=== PATIENT | female | born 1965 | race Caucasian/White ===

== ENCOUNTER 2018-09-30 11:15 | Outpatient (RCR) | payer BC, SELFPAY ==
--- NOTE | 2018-08-04 13:12 | PT.OIE ---
Current Diagnoses Uterovaginal prolapse, unspecified (08/04/18) Pelvic muscle wasting (08/04/18) Past Surgical History Status post delivery Provider Visit Care Team Role Provider Type Jenny Manzo MD Family Provider Physician Primary Care Provider Specialty: HISTORY CARD CLERK Address: [address] [place] [address] [address], [address] Email: [email or web address] Trista Reynaga Attending Provider Non-Staff Specialty: Medical Address: [address] [place] [address] [address], [address] Email: Physical Therapy Initial Evaluation PT-OP-A Visit Information Start: 08/04/18 08:13 Freq: Status: Active Protocol: Document 08/04/18 08:00 AMB (Rec: 08/04/18 08:26 AMB [id number]) Out-Patient Physical Therapy Visit Information Visit Information Visit Type Initial Evaluation Visit Start Time 08:00 Visit Stop Time 08:45 Total Visit Minutes 45 Visit Number 1 PT-OP-B Current Condition Start: 08/04/18 08:13 Freq: Status: Active Protocol: Document 08/04/18 08:00 AMB (Rec: 08/07/18 08:16 AMB [email or web address]) Current Condition History of Current Condition Onset Date 2 months ago Current Complaints prolapse History of Current Condition The patient noticed a bulge in her vagina about 2 months ago . Since then she is feeling it is worse. She notices it constantly. She denies any leaking, although she does notice more urinary urgency. She does have a history of IBS with more loose stools than constipation, denies straining much. She has had 3 pregnancies. The first in 1994 was a vaginal , she had an episiotomy and then tore all the way. She had a in 2013. She does have a history of painful periods. In 2015 she had a 2nd trimester miscarriage and had a dilation and evacuation. She continued to bleed somewhat at least 10 weeks after the D&E and has not returned to menstruation after that. She wonders if she is perimenopausal. She has been avoiding intercourse since she discovered the prolapse due to fear of it. Treatment Goals Patient/Caregiver Goals Reduce feeling of prolapse Prior Functional Status Baseline Function- ADL's Independent Baseline Function- Mobility Independent Current Functional Impairments (Reported) Functional Limitations- ADL's Feeling of falling out Personal Factors Other Personal Factors That May Effect fibromyalgia, hypothyroid, Therapy/Recovery back pain PT-OP-C Subjective Start: 08/04/18 08:13 Freq: Status: Active Protocol: Document 08/04/18 08:00 AMB (Rec: 08/07/18 08:16 AMB [email or web address]) Patient Questionnaires Pelvic Pain and Urgency/Frequency Patient Symptom Scale Pelvic Pain Score 3 PT-OP-I Pelvic Floor Start: 08/04/18 08:13 Freq: Status: Active Protocol: Document 08/04/18 08:00 AMB (Rec: 08/09/18 13:01 AMB [email or web address]) Pelvic Floor Assessment Urine Pelvic Floor Surgery No Urinary Symptoms Urge Sensation Prolapse Falling Out Feeling/Heavy Bowel Other Bowel Symptoms IBS [place] Stool Chart Type 1-7 4 Pelvic Clock Pelvic Clock 12-3 Atrophy Pelvic Clock 9-12 Atrophy Prolapse Uterine Prolapse Grade 2 Perineal Descent Resting Present Bearing Present Contraction Ability Voluntary Contraction Weak Voluntary Relaxation Moderate Manual Muscle Testing Left 2 Manual Muscle Testing Right 2 Manual Muscle Testing Anterior 0 Manual Muscle Testing Posterior 2 Muscle Endurance (Seconds) 3 Number of Quick Contractions In 10 4 Seconds Comments Pelvic Floor Comments Fair strength a posterior pelvic floor, but poor strength anteriorly, visible prolapse worsens with bearing down. Pt denies pain with palpation. PT-OP-T Assessment and Plan Start: 08/04/18 08:13 Freq: Status: Active Protocol: Document 08/04/18 08:00 AMB (Rec: 08/09/18 13:01 AMB [email or web address]) Physical Therapy Assessment Rehab Potential Rehabilitation Potential Good Evaluation Complexity Number of Personal Factors/Comorbidities 1-2 Number of Body Systems Impaired 3 Clinical Presentation at Evaluation Evolving Impairments Impairments Activity Tolerance Functional Activities Strength Goals Two Impairment Urgency Short Term Goal (STG) The patient will be able to void urine normally without urgency. STG Duration 4 weeks One Impairment Prolapse Short Term Goal (STG) The patient will be independent with a HEP to improve her pelvic floor strength. STG Duration 4 weeks Food And Beverage Checker Goal (LTG) The patient will move from sit to stand without a feeling of pelvic heaviness. LTG Duration 8 weeks Assessment Summary Assessment The patient attends PT with a recent onset of prolapse. She denies incontinenence, but has noticed more urgency. She will benefit from pelvic floor PT, as her anterior pelvic floor muscles are quite weak. Physical Therapy Plan Frequency and Duration Frequency of Treatment 1x/Week Duration of Treatment 8 weeks Plan of Care Start Date 08/04/18 Plan of Care End Date 09/29/18 Therapeutic Interventions Therapeutic Interventions Manual Therapy Neuromuscular Re-education Self-Care/Home Management Therapeutic Activities Therapeutic Exercises Modalities Biofeedback Electric Stimulation Next Visit Focus/Plan Next Note Type Treatment Note Next Visit Plan Evaluate sEMG
--- NOTE | 2018-08-04 13:13 | PT.OPPOC ---
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 Address: [address] [place] [address] [address], [address] Email: [email or web address] Trista Reynaga Attending Provider Non-Staff Specialty: Medical Address: [address] [place] [address] [address], [address] Email: Plan Of Care PT-OP-T Assessment and Plan Start: 08/04/18 08:13 Freq: Status: Active Protocol: Document 08/04/18 08:00 AMB (Rec: 08/09/18 13:01 AMB [email or web address]) Physical Therapy Assessment Rehab Potential Rehabilitation Potential Good Evaluation Complexity Number of Personal Factors/Comorbidities 1-2 Number of Body Systems Impaired 3 Clinical Presentation at Evaluation Evolving Impairments Impairments Activity Tolerance Functional Activities Strength Goals Two Impairment Urgency Short Term Goal (STG) The patient will be able to void urine normally without urgency. STG Duration 4 weeks One Impairment Prolapse Short Term Goal (STG) The patient will be independent with a HEP to improve her pelvic floor strength. STG Duration 4 weeks Shear Tender Goal (LTG) The patient will move from sit to stand without a feeling of pelvic heaviness. LTG Duration 8 weeks Assessment Summary Assessment The patient attends PT with a recent onset of prolapse. She denies incontinenence, but has noticed more urgency. She will benefit from pelvic floor PT, as her anterior pelvic floor muscles are quite weak. Physical Therapy Plan Frequency and Duration Frequency of Treatment 1x/Week Duration of Treatment 8 weeks Plan of Care Start Date 08/04/18 Plan of Care End Date 09/29/18 Therapeutic Interventions Therapeutic Interventions Manual Therapy Neuromuscular Re-education Self-Care/Home Management Therapeutic Activities Therapeutic Exercises Modalities Biofeedback Electric Stimulation Next Visit Focus/Plan Next Note Type Treatment Note Next Visit Plan Evaluate sEMG Plan of Care Dates Plan of Care Start Date 08/04/18 Plan of Care End Date 09/29/18 Please Sign and Return: I have reviewed this Plan of Care and certify that the skilled therapy services above are required to meet the patient?s needs. Physician Signature Date Printed Name and Credentials Clinical Instructor Signature Printed Name and Credentials
--- NOTE | 2018-08-12 09:00 | PT.OTN ---
Current Diagnoses Uterovaginal prolapse, unspecified (08/12/18) Pelvic muscle wasting (08/12/18) Physical Therapy Treatment Note PT-OP-A Visit Information Start: 08/04/18 08:13 Freq: Status: Active Protocol: Document 08/12/18 07:45 AMB (Rec: 08/12/18 07:49 AMB [email or web address]) Out-Patient Physical Therapy Visit Information Visit Information Visit Type Treatment Note Visit Start Time 07:45 Visit Stop Time 08:15 Total Visit Minutes 30 Visit Number 2 Evaluation Information Evaluation Date 08/04/18 PT-OP-B Current Condition Start: 08/04/18 08:13 Freq: Status: Active Protocol: Document 08/04/18 08:00 AMB (Rec: 08/07/18 08:16 AMB [email or web address]) Current Condition History of Current Condition Onset Date 2 months ago Current Complaints prolapse History of Current Condition The patient noticed a bulge in her vagina about 2 months ago . Since then she is feeling it is worse. She notices it constantly. She denies any leaking, although she does notice more urinary urgency. She does have a history of IBS with more loose stools than constipation, denies straining much. She has had 3 pregnancies. The first in 1994 was a vaginal , she had an episiotomy and then tore all the way. She had a in 2013. She does have a history of painful periods. In 2015 she had a 2nd trimester miscarriage and had a dilation and evacuation. She continued to bleed somewhat at least 10 weeks after the D&E and has not returned to menstruation after that. She wonders if she is perimenopausal. She has been avoiding intercourse since she discovered the prolapse due to fear of it. Treatment Goals Patient/Caregiver Goals Reduce feeling of prolapse Prior Functional Status Baseline Function- ADL's Independent Baseline Function- Mobility Independent Current Functional Impairments (Reported) Functional Limitations- ADL's Feeling of falling out Personal Factors Other Personal Factors That May Effect fibromyalgia, hypothyroid, Therapy/Recovery back pain PT-OP-C Subjective Start: 08/04/18 08:13 Freq: Status: Active Protocol: Document 08/12/18 07:45 AMB (Rec: 08/12/18 07:49 AMB [email or web address]) OP-PT Subjective Patient Comments Patient Comments Pt states she has been doing her exercises, not sure how they're going. PT-OP-I Pelvic Floor Start: 08/04/18 08:13 Freq: Status: Active Protocol: Document 08/04/18 08:00 AMB (Rec: 08/09/18 13:01 AMB [email or web address]) Pelvic Floor Assessment Urine Pelvic Floor Surgery No Urinary Symptoms Urge Sensation Prolapse Falling Out Feeling/Heavy Bowel Other Bowel Symptoms IBS [place] Stool Chart Type 1-7 4 Pelvic Clock Pelvic Clock 12-3 Atrophy Pelvic Clock 9-12 Atrophy Prolapse Uterine Prolapse Grade 2 Perineal Descent Resting Present Bearing Present Contraction Ability Voluntary Contraction Weak Voluntary Relaxation Moderate Manual Muscle Testing Left 2 Manual Muscle Testing Right 2 Manual Muscle Testing Anterior 0 Manual Muscle Testing Posterior 2 Muscle Endurance (Seconds) 3 Number of Quick Contractions In 10 4 Seconds Comments Pelvic Floor Comments Fair strength a posterior pelvic floor, but poor strength anteriorly, visible prolapse worsens with bearing down. Pt denies pain with palpation. PT-OP-Q Treatments Start: 08/04/18 08:14 Freq: Status: Active Protocol: Document 08/12/18 07:45 AMB (Rec: 08/13/18 07:00 AMB [email or web address]) Neuro Re-Education Treatment Other Activities 2 Details long holds Comments difficult for more than 3 seconds 1 Details quick flicks Comments good coordination with sEMG, pt felt she needed to hold the sensor in to get it to not fall out. PT-OP-T Assessment and Plan Start: 08/04/18 08:13 Freq: Status: Active Protocol: Document 08/12/18 07:45 AMB (Rec: 08/13/18 07:00 AMB [email or web address]) Physical Therapy Assessment Assessment Summary Assessment Pt with poor endurance, but making good progress on isolation Physical Therapy Plan Next Visit Focus/Plan Next Note Type Treatment Note Next Visit Plan Progress into resistance and sitting/standing as tolerated.
--- NOTE | 2018-08-18 16:36 | PT.OTN ---
Current Diagnoses Uterovaginal prolapse, unspecified (08/18/18) Pelvic muscle wasting (08/18/18) Physical Therapy Treatment Note PT-OP-A Visit Information Start: 08/04/18 08:13 Freq: Status: Active Protocol: Document 08/18/18 09:30 AMB (Rec: 08/18/18 09:55 AMB [id number]) Out-Patient Physical Therapy Visit Information Visit Information Visit Type Treatment Note Visit Start Time 07:45 Visit Stop Time 08:15 Total Visit Minutes 45 Visit Number 3 PT-OP-B Current Condition Start: 08/04/18 08:13 Freq: Status: Active Protocol: Document 08/04/18 08:00 AMB (Rec: 08/07/18 08:16 AMB [email or web address]) Current Condition History of Current Condition Onset Date 2 months ago Current Complaints prolapse History of Current Condition The patient noticed a bulge in her vagina about 2 months ago . Since then she is feeling it is worse. She notices it constantly. She denies any leaking, although she does notice more urinary urgency. She does have a history of IBS with more loose stools than constipation, denies straining much. She has had 3 pregnancies. The first in 1994 was a vaginal , she had an episiotomy and then tore all the way. She had a in 2013. She does have a history of painful periods. In 2015 she had a 2nd trimester miscarriage and had a dilation and evacuation. She continued to bleed somewhat at least 10 weeks after the D&E and has not returned to menstruation after that. She wonders if she is perimenopausal. She has been avoiding intercourse since she discovered the prolapse due to fear of it. Treatment Goals Patient/Caregiver Goals Reduce feeling of prolapse Prior Functional Status Baseline Function- ADL's Independent Baseline Function- Mobility Independent Current Functional Impairments (Reported) Functional Limitations- ADL's Feeling of falling out Personal Factors Other Personal Factors That May Effect fibromyalgia, hypothyroid, Therapy/Recovery back pain PT-OP-C Subjective Start: 08/04/18 08:13 Freq: Status: Active Protocol: Document 08/18/18 09:30 AMB (Rec: 08/18/18 09:55 AMB [id number]) OP-PT Subjective Patient Comments Patient Comments Pt states she has been very stressed. PT-OP-I Pelvic Floor Start: 08/04/18 08:13 Freq: Status: Active Protocol: Document 08/04/18 08:00 AMB (Rec: 08/09/18 13:01 AMB [email or web address]) Pelvic Floor Assessment Urine Pelvic Floor Surgery No Urinary Symptoms Urge Sensation Prolapse Falling Out Feeling/Heavy Bowel Other Bowel Symptoms IBS [place] Stool Chart Type 1-7 4 Pelvic Clock Pelvic Clock 12-3 Atrophy Pelvic Clock 9-12 Atrophy Prolapse Uterine Prolapse Grade 2 Perineal Descent Resting Present Bearing Present Contraction Ability Voluntary Contraction Weak Voluntary Relaxation Moderate Manual Muscle Testing Left 2 Manual Muscle Testing Right 2 Manual Muscle Testing Anterior 0 Manual Muscle Testing Posterior 2 Muscle Endurance (Seconds) 3 Number of Quick Contractions In 10 4 Seconds Comments Pelvic Floor Comments Fair strength a posterior pelvic floor, but poor strength anteriorly, visible prolapse worsens with bearing down. Pt denies pain with palpation. PT-OP-Q Treatments Start: 08/04/18 08:14 Freq: Status: Active Protocol: Document 08/18/18 09:30 AMB (Rec: 08/18/18 16:36 AMB [email or web address]) Therapeutic Exercises Supine Exercises 3 Supine Exercise Name hips and knees at 9090 supported on bolster Comments with pelvic floor contraction 2 Supine Exercise Name hip add isometric 1 Supine Exercise Name hip abd t band Resistance #3 Comments with pelvic floor stab Other Exercises 1 Other Exercise Name masood pose Comments with modification to avoid head below hear for sinus pressure PT-OP-T Assessment and Plan Start: 08/04/18 08:13 Freq: Status: Active Protocol: Document 08/18/18 09:30 AMB (Rec: 08/18/18 10:08 AMB [id number]) Physical Therapy Assessment Assessment Summary Assessment Pt with difficulty engaging pelvic floor in seated. Physical Therapy Plan Next Visit Focus/Plan Next Note Type Treatment Note Next Visit Plan Progress into resistance and sitting/standing as tolerated.
--- NOTE | 2018-08-25 08:41 | PT.OTN ---
Current Diagnoses Uterovaginal prolapse, unspecified (08/25/18) Pelvic muscle wasting (08/25/18) Physical Therapy Treatment Note PT-OP-A Visit Information Start: 08/04/18 08:13 Freq: Status: Active Protocol: Document 08/25/18 08:05 AMB (Rec: 08/25/18 08:32 AMB [id number]) Out-Patient Physical Therapy Visit Information Visit Information Visit Type Treatment Note Visit Start Time 08:05 Visit Stop Time 08:45 Total Visit Minutes 45 Visit Number 4 PT-OP-B Current Condition Start: 08/04/18 08:13 Freq: Status: Active Protocol: Document 08/04/18 08:00 AMB (Rec: 08/07/18 08:16 AMB [email or web address]) Current Condition History of Current Condition Onset Date 2 months ago Current Complaints prolapse History of Current Condition The patient noticed a bulge in her vagina about 2 months ago . Since then she is feeling it is worse. She notices it constantly. She denies any leaking, although she does notice more urinary urgency. She does have a history of IBS with more loose stools than constipation, denies straining much. She has had 3 pregnancies. The first in 1994 was a vaginal , she had an episiotomy and then tore all the way. She had a in 2013. She does have a history of painful periods. In 2015 she had a 2nd trimester miscarriage and had a dilation and evacuation. She continued to bleed somewhat at least 10 weeks after the D&E and has not returned to menstruation after that. She wonders if she is perimenopausal. She has been avoiding intercourse since she discovered the prolapse due to fear of it. Treatment Goals Patient/Caregiver Goals Reduce feeling of prolapse Prior Functional Status Baseline Function- ADL's Independent Baseline Function- Mobility Independent Current Functional Impairments (Reported) Functional Limitations- ADL's Feeling of falling out Personal Factors Other Personal Factors That May Effect fibromyalgia, hypothyroid, Therapy/Recovery back pain PT-OP-C Subjective Start: 08/04/18 08:13 Freq: Status: Active Protocol: Document 08/25/18 08:05 AMB (Rec: 08/25/18 08:32 AMB [id number]) OP-PT Subjective Patient Comments Patient Comments Pt's dad is on hospice and she has been very stressed with that. PT-OP-I Pelvic Floor Start: 08/04/18 08:13 Freq: Status: Active Protocol: Document 08/04/18 08:00 AMB (Rec: 08/09/18 13:01 AMB [email or web address]) Pelvic Floor Assessment Urine Pelvic Floor Surgery No Urinary Symptoms Urge Sensation Prolapse Falling Out Feeling/Heavy Bowel Other Bowel Symptoms IBS [place] Stool Chart Type 1-7 4 Pelvic Clock Pelvic Clock 12-3 Atrophy Pelvic Clock 9-12 Atrophy Prolapse Uterine Prolapse Grade 2 Perineal Descent Resting Present Bearing Present Contraction Ability Voluntary Contraction Weak Voluntary Relaxation Moderate Manual Muscle Testing Left 2 Manual Muscle Testing Right 2 Manual Muscle Testing Anterior 0 Manual Muscle Testing Posterior 2 Muscle Endurance (Seconds) 3 Number of Quick Contractions In 10 4 Seconds Comments Pelvic Floor Comments Fair strength a posterior pelvic floor, but poor strength anteriorly, visible prolapse worsens with bearing down. Pt denies pain with palpation. PT-OP-Q Treatments Start: 08/04/18 08:14 Freq: Status: Active Protocol: Document 08/25/18 08:05 AMB (Rec: 08/25/18 08:32 AMB [id number]) Therapeutic Exercises Supine Exercises 3 Supine Exercise Name hips and knees at 9090 supported on bolster Comments with pelvic floor contraction 2 Supine Exercise Name hip add isometric 1 Supine Exercise Name hip abd t band Resistance #3 Comments with pelvic floor stab Neuro Re-Education Treatment Coordination Activities 1 Details coordinating breath work with pelvic floor Comments in supine difficult. Other Activities 2 Details long holds Comments difficult for more than 3 seconds PT-OP-T Assessment and Plan Start: 08/04/18 08:13 Freq: Status: Active Protocol: Document 08/25/18 08:00 AMB (Rec: 08/25/18 08:38 AMB [id number]) Physical Therapy Assessment Assessment Summary Assessment Pt with difficulty focusing on exercises with stressor from her dad right now. Physical Therapy Plan Next Visit Focus/Plan Next Note Type Treatment Note Next Visit Plan Progress into resistance and sitting/standing as tolerated.
--- NOTE | 2018-09-01 12:54 | PT.OTN ---
Current Diagnoses Uterovaginal prolapse, unspecified (09/01/18) Pelvic muscle wasting (09/01/18) Physical Therapy Treatment Note PT-OP-A Visit Information Start: 08/04/18 08:13 Freq: Status: Active Protocol: Document 09/01/18 08:30 AMB (Rec: 09/01/18 09:47 AMB [id number]) Out-Patient Physical Therapy Visit Information Visit Information Visit Type Treatment Note Visit Start Time 08:15 Visit Stop Time 08:45 Total Visit Minutes 30 Visit Number 5 PT-OP-B Current Condition Start: 08/04/18 08:13 Freq: Status: Active Protocol: Document 08/04/18 08:00 AMB (Rec: 08/07/18 08:16 AMB [email or web address]) Current Condition History of Current Condition Onset Date 2 months ago Current Complaints prolapse History of Current Condition The patient noticed a bulge in her vagina about 2 months ago . Since then she is feeling it is worse. She notices it constantly. She denies any leaking, although she does notice more urinary urgency. She does have a history of IBS with more loose stools than constipation, denies straining much. She has had 3 pregnancies. The first in 1994 was a vaginal , she had an episiotomy and then tore all the way. She had a in 2013. She does have a history of painful periods. In 2015 she had a 2nd trimester miscarriage and had a dilation and evacuation. She continued to bleed somewhat at least 10 weeks after the D&E and has not returned to menstruation after that. She wonders if she is perimenopausal. She has been avoiding intercourse since she discovered the prolapse due to fear of it. Treatment Goals Patient/Caregiver Goals Reduce feeling of prolapse Prior Functional Status Baseline Function- ADL's Independent Baseline Function- Mobility Independent Current Functional Impairments (Reported) Functional Limitations- ADL's Feeling of falling out Personal Factors Other Personal Factors That May Effect fibromyalgia, hypothyroid, Therapy/Recovery back pain PT-OP-C Subjective Start: 08/04/18 08:13 Freq: Status: Active Protocol: Document 09/01/18 08:30 AMB (Rec: 09/01/18 09:47 AMB [id number]) OP-PT Subjective Patient Comments Patient Comments Pt has a few questions about HEP PT-OP-I Pelvic Floor Start: 08/04/18 08:13 Freq: Status: Active Protocol: Document 08/04/18 08:00 AMB (Rec: 08/09/18 13:01 AMB [email or web address]) Pelvic Floor Assessment Urine Pelvic Floor Surgery No Urinary Symptoms Urge Sensation Prolapse Falling Out Feeling/Heavy Bowel Other Bowel Symptoms IBS [place] Stool Chart Type 1-7 4 Pelvic Clock Pelvic Clock 12-3 Atrophy Pelvic Clock 9-12 Atrophy Prolapse Uterine Prolapse Grade 2 Perineal Descent Resting Present Bearing Present Contraction Ability Voluntary Contraction Weak Voluntary Relaxation Moderate Manual Muscle Testing Left 2 Manual Muscle Testing Right 2 Manual Muscle Testing Anterior 0 Manual Muscle Testing Posterior 2 Muscle Endurance (Seconds) 3 Number of Quick Contractions In 10 4 Seconds Comments Pelvic Floor Comments Fair strength a posterior pelvic floor, but poor strength anteriorly, visible prolapse worsens with bearing down. Pt denies pain with palpation. PT-OP-Q Treatments Start: 08/04/18 08:14 Freq: Status: Active Protocol: Document 09/01/18 08:30 AMB (Rec: 09/01/18 12:53 AMB [email or web address]) Neuro Re-Education Treatment Coordination Activities 1 Details coordinating breath work with pelvic floor Comments in supine difficult. Other Activities 3 Details hip knee 9090 Comments Reviewed role of gravity, progression with exercises. 2 Details long holds Comments difficult for more than 3 seconds 1 Details quick flicks Comments good coordination with sEMG, pt felt she needed to hold the sensor in to get it to not fall out. PT-OP-T Assessment and Plan Start: 08/04/18 08:13 Freq: Status: Active Protocol: Document 09/01/18 08:30 AMB (Rec: 09/01/18 09:52 AMB [id number]) Physical Therapy Assessment Assessment Summary Assessment Pt continues to have difficulty finding time to do HEP. Physical Therapy Plan Next Visit Focus/Plan Next Note Type Treatment Note Next Visit Plan Progress into more functional strengthening as tolerated
--- NOTE | 2018-09-30 13:27 | PT.OTN ---
Current Diagnoses Uterovaginal prolapse, unspecified (09/30/18) Pelvic muscle wasting (09/30/18) Physical Therapy Treatment Note PT-OP-A Visit Information Start: 08/04/18 08:13 Freq: Status: Active Protocol: Document 09/30/18 11:15 AMB (Rec: 09/30/18 13:26 AMB [id number]) Out-Patient Physical Therapy Visit Information Visit Information Visit Type Treatment Note Visit Start Time 11:15 Visit Stop Time 12:00 Total Visit Minutes 45 Visit Number 6 PT-OP-B Current Condition Start: 08/04/18 08:13 Freq: Status: Active Protocol: Document 08/04/18 08:00 AMB (Rec: 08/07/18 08:16 AMB [id number]) Current Condition History of Current Condition Onset Date 2 months ago Current Complaints prolapse History of Current Condition The patient noticed a bulge in her vagina about 2 months ago . Since then she is feeling it is worse. She notices it constantly. She denies any leaking, although she does notice more urinary urgency. She does have a history of IBS with more loose stools than constipation, denies straining much. She has had 3 pregnancies. The first in 1994 was a vaginal , she had an episiotomy and then tore all the way. She had a in 2013. She does have a history of painful periods. In 2015 she had a 2nd trimester miscarriage and had a dilation and evacuation. She continued to bleed somewhat at least 10 weeks after the D&E and has not returned to menstruation after that. She wonders if she is perimenopausal. She has been avoiding intercourse since she discovered the prolapse due to fear of it. Treatment Goals Patient/Caregiver Goals Reduce feeling of prolapse Prior Functional Status Baseline Function- ADL's Independent Baseline Function- Mobility Independent Current Functional Impairments (Reported) Functional Limitations- ADL's Feeling of falling out Personal Factors Other Personal Factors That May Effect fibromyalgia, hypothyroid, Therapy/Recovery back pain PT-OP-C Subjective Start: 08/04/18 08:13 Freq: Status: Active Protocol: Document 09/30/18 11:15 AMB (Rec: 09/30/18 13:26 AMB [id number]) OP-PT Subjective Patient Comments Patient Comments Pt reports her life stressors have been making it very difficult to do her exercises. PT-OP-I Pelvic Floor Start: 08/04/18 08:13 Freq: Status: Active Protocol: Document 08/04/18 08:00 AMB (Rec: 08/09/18 13:01 AMB [id number]) Pelvic Floor Assessment Urine Pelvic Floor Surgery No Urinary Symptoms Urge Sensation Prolapse Falling Out Feeling/Heavy Bowel Other Bowel Symptoms IBS [place] Stool Chart Type 1-7 4 Pelvic Clock Pelvic Clock 12-3 Atrophy Pelvic Clock 9-12 Atrophy Prolapse Uterine Prolapse Grade 2 Perineal Descent Resting Present Bearing Present Contraction Ability Voluntary Contraction Weak Voluntary Relaxation Moderate Manual Muscle Testing Left 2 Manual Muscle Testing Right 2 Manual Muscle Testing Anterior 0 Manual Muscle Testing Posterior 2 Muscle Endurance (Seconds) 3 Number of Quick Contractions In 10 4 Seconds Comments Pelvic Floor Comments Fair strength a posterior pelvic floor, but poor strength anteriorly, visible prolapse worsens with bearing down. Pt denies pain with palpation. PT-OP-Q Treatments Start: 08/04/18 08:14 Freq: Status: Active Protocol: Document 09/30/18 11:15 AMB (Rec: 09/30/18 13:26 AMB [id number]) Therapeutic Exercises Supine Exercises 3 Supine Exercise Name hips and knees at 9090 supported on bolster Comments with pelvic floor contraction 2 Supine Exercise Name hip add isometric 1 Supine Exercise Name hip abd t band Resistance #3 Comments with pelvic floor stab Standing Exercises 2 Standing Exercise Name mini squat Comments with PF contract 1 Standing Exercise Name mini lunges Comments with PF contract Other Exercises 2 Other Exercise Name kneeling to high kneeling Comments with breathing PT-OP-T Assessment and Plan Start: 08/04/18 08:13 Freq: Status: Active Protocol: Document 09/30/18 11:15 AMB (Rec: 09/30/18 13:26 AMB [id number]) Physical Therapy Assessment Assessment Summary Assessment Instructed in HEP to progress as she gets better. From supine into standing and moving. Physical Therapy Plan Next Visit Focus/Plan Next Note Type Treatment Note Next Visit Plan Depending on how pt is doing, may need to d/c soon. Follow up on HEP.
--- NOTE | 2018-11-25 08:13 | PT.OPDS ---
Current Diagnoses Uterovaginal prolapse, unspecified (09/30/18) Pelvic muscle wasting (09/30/18) Provider Visit Care Team Role Provider Type Jenny Manzo MD Family Provider Physician Primary Care Provider Specialty: GRAFFITI CLEANER Address: [address] [place] [address] [address], [address] Email: [email or web address] Trista Reynaga Attending Provider Non-Staff Specialty: Medical Address: [address] [place] [address] [address], [address] Email: Visit Number Visit Number 6 Discharge Summary PT-OP-B Current Condition Start: 08/04/18 08:13 Freq: Status: Active Protocol: Document 08/04/18 08:00 AMB (Rec: 08/07/18 08:16 AMB [email or web address]) Current Condition History of Current Condition Onset Date 2 months ago Current Complaints prolapse History of Current Condition The patient noticed a bulge in her vagina about 2 months ago . Since then she is feeling it is worse. She notices it constantly. She denies any leaking, although she does notice more urinary urgency. She does have a history of IBS with more loose stools than constipation, denies straining much. She has had 3 pregnancies. The first in 1994 was a vaginal , she had an episiotomy and then tore all the way. She had a in 2013. She does have a history of painful periods. In 2015 she had a 2nd trimester miscarriage and had a dilation and evacuation. She continued to bleed somewhat at least 10 weeks after the D&E and has not returned to menstruation after that. She wonders if she is perimenopausal. She has been avoiding intercourse since she discovered the prolapse due to fear of it. Treatment Goals Patient/Caregiver Goals Reduce feeling of prolapse Prior Functional Status Baseline Function- ADL's Independent Baseline Function- Mobility Independent Current Functional Impairments (Reported) Functional Limitations- ADL's Feeling of falling out Personal Factors Other Personal Factors That May Effect fibromyalgia, hypothyroid, Therapy/Recovery back pain PT-OP-C Subjective Start: 08/04/18 08:13 Freq: Status: Active Protocol: Document 09/30/18 11:15 AMB (Rec: 09/30/18 13:26 AMB [id number]) OP-PT Subjective Patient Comments Patient Comments Pt reports her life stressors have been making it very difficult to do her exercises. PT-OP-I Pelvic Floor Start: 08/04/18 08:13 Freq: Status: Active Protocol: Document 08/04/18 08:00 AMB (Rec: 08/09/18 13:01 AMB [email or web address]) Pelvic Floor Assessment Urine Pelvic Floor Surgery No Urinary Symptoms Urge Sensation Prolapse Falling Out Feeling/Heavy Bowel Other Bowel Symptoms IBS [place] Stool Chart Type 1-7 4 Pelvic Clock Pelvic Clock 12-3 Atrophy Pelvic Clock 9-12 Atrophy Prolapse Uterine Prolapse Grade 2 Perineal Descent Resting Present Bearing Present Contraction Ability Voluntary Contraction Weak Voluntary Relaxation Moderate Manual Muscle Testing Left 2 Manual Muscle Testing Right 2 Manual Muscle Testing Anterior 0 Manual Muscle Testing Posterior 2 Muscle Endurance (Seconds) 3 Number of Quick Contractions In 10 4 Seconds Comments Pelvic Floor Comments Fair strength a posterior pelvic floor, but poor strength anteriorly, visible prolapse worsens with bearing down. Pt denies pain with palpation. PT-OP-T Assessment and Plan Start: 08/04/18 08:13 Freq: Status: Active Protocol: Document 11/25/18 08:08 AMB (Rec: 11/25/18 08:13 AMB [id number]) Physical Therapy Assessment Goals Two Impairment Urgency Short Term Goal (STG) The patient will be able to void urine normally without urgency. STG Duration 4 weeks One Impairment Prolapse Short Term Goal (STG) The patient will be independent with a HEP to improve her pelvic floor strength. STG Duration 4 weeks Diving Supervisor Goal (LTG) The patient will move from sit to stand without a feeling of pelvic heaviness. LTG Duration 8 weeks Assessment Summary Assessment Radha was seen for 6 visits. Last seen September 30. She has not returned the last call to schedule more. When last seen her father was actively dying and this was a big stressor for her, so she was having difficulty focusing on treatment. She was given a HEP that hopefully she will be able to continue with. Since she has not called back and not been seen in almost 2 months, she is therefore discharged from PT at this time and would need a new referral to return when her family responsibilities have calmed down.
== END 2018-10-01 11:53 ==
LOC: PHYS 11:15
PROVIDERS: Family Provider Obstetrics & Gynecology; PCP Obstetrics & Gynecology; Visit Provider Urology
DX: N81.4 Uterovaginal prolapse, unspecified (principal); N81.84 Pelvic muscle wasting
CPT/HCPCS: 97110; 97112; 97162

== ENCOUNTER → 2020-09-19 15:01 | Outpatient (ROUT) | payer BC, SELFPAY ==
[2020-09-19 16:16] LABS: Free T4, Direct Thyroxine 0.71 ng/dL (0.78-2.19)
[2020-09-19 16:30] LABS: Thyroid Stimulating Hormone 3.76 uIU/mL (0.47-4.68)
== END ==
PROVIDERS: Family Provider Obstetrics & Gynecology; PCP Nurse Practitioner; Visit Provider Internal Medicine
DX: E03.9 Hypothyroidism, unspecified (principal)
CPT/HCPCS: 84439; 84443; 84481

== ENCOUNTER → 2020-12-07 13:13 | Outpatient (ROUT) | payer BC, SELFPAY ==
[2020-12-07 13:50] LABS: Free T3, Triiodothyronine Free 3.76 pg/mL (2.77-5.27); Free T4, Direct Thyroxine 0.68 ng/dL (0.78-2.19)
[2020-12-07 14:03] LABS: Thyroid Stimulating Hormone 2.33 uIU/mL (0.47-4.68)
== END ==
PROVIDERS: Family Provider Obstetrics & Gynecology; PCP Nurse Practitioner; Visit Provider Internal Medicine
DX: E03.9 Hypothyroidism, unspecified (principal)
CPT/HCPCS: 84439; 84443; 84481

== ENCOUNTER → 2021-05-05 13:53 | Outpatient (CLI) | payer BC, SELFPAY ==
[2021-05-05 14:21] LABS: COVID19 -Nasal RAPID Negative (Negative)
== END ==
PROVIDERS: Family Provider Obstetrics & Gynecology; PCP Nurse Practitioner; Visit Provider Physician Assistant
DX: R05 Cough (principal); Z20.822 Contact with and (suspected) exposure to COVID-19
CPT/HCPCS: 87635

== ENCOUNTER → 2021-11-12 16:29 | Outpatient (ROUT) | payer BC, SELFPAY | PROVIDERS: Family Provider Obstetrics & Gynecology; PCP Nurse Practitioner; Visit Provider Dermatology | DX: L02.821 Furuncle of head [any part, except face] (principal) | CPT/HCPCS: 87070; 87077; 87147; 87186; 87205 ==

== ENCOUNTER → 2022-09-02 17:09 | Outpatient (CLI) | payer BC, SELFPAY ==
[2022-09-02 18:36] LABS: COVID-19 CEPHEID 4-PLEX PCR Negative (Negative); Influenza A - CEPHEID Flu A NEGATIVE (NEGATIVE); Influenza B - CEPHEID Flu B NEGATIVE (NEGATIVE); Respiratory Syncytial Virus Negative (Negative)
== END ==
PROVIDERS: Family Provider Obstetrics & Gynecology; PCP Family Medicine; Visit Provider Nurse Practitioner Family
DX: R05.9 Cough, unspecified (principal)
CPT/HCPCS: 0241U

== ENCOUNTER → 2022-10-10 10:19 | Outpatient (CLI) | payer BC, SELFPAY ==
[2022-10-10 11:30] LABS: Add Manual Diff / Slide Review NO; Basophils Absolute Auto 0 /uL (0-100); Basophils Percent Auto 0.6 % (0-2); Eosinophils Absolute Auto 100 /uL (0-450); Eosinophils Percent Auto 2.3 % (2-4); Hematocrit 37.9 % (36-46); Hemoglobin 12.4 g/dL (12.0-16.0); Lymphocytes Absolute Auto 1900 /uL (1100-4500); Lymphocytes Percent Auto 36.9 % (25-40); Mean Corpuscular HGB Conc 32.7 % (30-36); Mean Corpuscular Hemoglobin 28.5 PG (26-34); Mean Corpuscular Volume 87.2 fL (80-100); Monocytes Absolute Auto 500 /uL (0-900); Monocytes Percent Auto 9.5 % (3-14); Neutrophils Absolute Auto 2600 /uL (1500-7000); Neutrophils Percent Auto 50.7 % (50-75); Platelet Count 302 X10^3/uL (150-400); Red Blood Cell Count 4.34 X10^6/uL (4.0-5.2); Red Cell Distribution Width 14.1 % (11.6-14.8); White Blood Cell Count 5.2 X10^3/uL (4.5-11.0)
[2022-10-10 11:58] LABS: Erythrocyte Sedimentation Rate 14 MM/HR (0-20)
[2022-10-10 11:59] LABS: C-Reactive Protein Quant < 0.5 mg/dL (<1.0)
[2022-10-11 05:33] LABS: IGA 110 mg/dL (87-352); IGG 871 mg/dL (586-1602); IGM 81 mg/dL (26-217)
[2022-10-15 16:29] LABS: ANA Screen, IFA Negative (.)
== END ==
PROVIDERS: Family Provider Obstetrics & Gynecology; PCP Family Medicine; Referring Provider Family Medicine; Visit Provider Family Medicine
DX: J32.9 Chronic sinusitis, unspecified (principal); M79.7 Fibromyalgia; R68.89 Other general symptoms and signs; R73.03 Prediabetes; B95.8 Unspecified staphylococcus as the cause of diseases classified elsewhere; L08.9 Local infection of the skin and subcutaneous tissue, unspecified
CPT/HCPCS: 36415; 82784; 85025; 85651; 86038; 86140

== ENCOUNTER → 2022-11-19 16:12 | Outpatient (CLI) | payer BC, SELFPAY ==
[2022-11-19 17:10] LABS: Influenza A - CEPHEID Flu A NEGATIVE (NEGATIVE); Influenza B - CEPHEID Flu B NEGATIVE (NEGATIVE); Respiratory Syncytial Virus Negative (Negative)
[2022-11-19 17:13] LABS: COVID-19 CEPHEID 4-PLEX PCR POSITIVE (Negative)
== END ==
PROVIDERS: Family Provider Obstetrics & Gynecology; PCP Family Medicine; Visit Provider Nurse Practitioner Family
DX: R05.9 Cough, unspecified (principal)
CPT/HCPCS: 0241U

== ENCOUNTER → 2022-12-17 12:13 | Outpatient (CLI) | payer BC, SELFPAY ==
[2022-12-17 13:58] LABS: Hemoglobin A1C% w Est Avg Glu 5.8 % (4.0-6.0)
[2022-12-17 14:00] LABS: Cholesterol 265 mg/dL (140-199); HDL Cholesterol 64 mg/dL (40-60); LDL Cholesterol Calculated 166 mg/dL (<100); Triglycerides 177 mg/dL (35-150)
[2022-12-17 14:31] LABS: TSH w/ Reflex to FT4 0.54 uIU/mL (0.47-4.68)
== END ==
PROVIDERS: Family Provider Obstetrics & Gynecology; PCP Family Medicine; Referring Provider Family Medicine; Visit Provider Family Medicine
DX: E03.9 Hypothyroidism, unspecified (principal); E78.5 Hyperlipidemia, unspecified; M79.7 Fibromyalgia; R73.03 Prediabetes
CPT/HCPCS: 36415; 80061; 83036; 84443

== ENCOUNTER → 2023-05-01 15:32 | Outpatient (CLI) | payer BC, SELFPAY ==
--- NOTE | 2023-05-01 15:33 | DI.CT.S_ITS ---
PROCEDURE: CT SINUS SCREEN WO CON INDICATIONS: Chronic pansinusitis TECHNIQUE: Noncontrast 3.0 mm axial images acquired from the frontal sinuses to the mid-sella, with coronal and sagittal reformats. For radiation dose reduction, the following was used: automated exposure control, adjustment of mA and/or kV according to patient size. COMPARISON: None. FINDINGS: Image quality: Excellent. Maxillary Sinuses: Mild mucosal thickening can be seen within the inferior right maxillary sinus. The left maxillary sinus appears clear. Postoperative changes are seen, with removal of portions of the medial alfaro of the maxillary sinuses. Mild bony septations can be seen involving both maxillary sinuses. Ethmoid Air Cells: Portions of the ethmoid air cell septations have been removed. Sinuses are clear. Sphenoid Sinuses: No bony remodeling or destruction. Sinuses are clear. Frontal Sinuses: No bony remodeling or destruction. Sinuses are clear. Ostiomeatal Complexes: Removed. Miscellaneous: Visualized intra-orbital contents are normal. No bina bullosa or paradoxical turbinate curvature. There is mild leftward nasal septal deviation. Degenerative changes can be seen involving both temporomandibular joints. IMPRESSION: Prior postoperative change, with bilateral antrectomy. Mild mucosal thickening is seen within the inferior right maxillary sinus. Mild leftward nasal septal deviation. Dictated by: Home Pineda M.D. on 05/01/2023 at 15:12 Approved by: Home Pineda M.D. on 05/01/2023 at 15:13
== END ==
PROVIDERS: Family Provider Obstetrics & Gynecology; PCP Family Medicine; Referring Provider Otolaryngology; Visit Provider Otolaryngology
DX: J32.4 Chronic pansinusitis (principal); R44.8 Other symptoms and signs involving general sensations and perceptions; J34.2 Deviated nasal septum
CPT/HCPCS: 70486

== ENCOUNTER → 2023-06-17 14:39 | Outpatient (CLI) | payer BC, SELFPAY ==
--- NOTE | 2023-06-17 14:40 | DI.MG.S_ITS ---
BILATERAL DIGITAL SCREENING MAMMOGRAM 3D/2D WITH CAD: 06/17/2023 CLINICAL: Routine screening. Comparison is made to exams dated: 06/13/2021 mammogram and 04/26/2020 mammogram - outside location. There are scattered areas of fibroglandular density in both breasts (category b / 25%-50% glandular tissue). Current study was also evaluated with a Computer Aided Detection (CAD) system. No significant masses, calcifications, or other findings are seen in either breast. There has been no significant interval change. IMPRESSION: NEGATIVE There is no mammographic evidence of malignancy. A 1 year screening mammogram is recommended. Based on the Tyrer Cuzick model (a risk assessment model) the patient's lifetime risk is 9.7% and her 10 year risk is 3.6%. According to the ACR, ACS, and NCCN guidelines, an annual breast MRI exam along with mammogram is recommended if the patient's lifetime risk is 20% or greater. This exam was interpreted at Station ID: [id number]. NOTE: For mammograms, a report in lay terms will be sent to the patient. Approximately 15% of breast malignancies will not be visualized mammographically. In the management of a palpable breast mass, a negative mammogram must not discourage biopsy of a clinically suspicious lesion. Electronically Signed By: Wilman salvador/benjamin:06/17/2023 17:44:26 letter sent: Normal Exam ACR BI-RADS Category 1: Negative [id number]
== END ==
PROVIDERS: Family Provider Obstetrics & Gynecology; PCP Family Medicine; Referring Provider Family Medicine; Visit Provider Family Medicine
DX: Z12.31 Encounter for screening mammogram for malignant neoplasm of breast (principal)
CPT/HCPCS: 77063; 77067

== ENCOUNTER → 2023-07-02 14:27 | Outpatient (CLI) | payer BC, SELFPAY ==
[2023-07-02 18:24] LABS: Campylobacter Not Detected (Not Detect); Clostridium difficile toxin AB Not Detected (Not Detect); Plesiomonsa shigelloides Not Detected (Not Detect); Salmonella Not Detected (Not Detect); Vibrio Not Detected (Not Detect)
[2023-07-02 18:25] LABS: Adenovirus F 40/41 Not Detected (Not Detect); Astrovirus Not Detected (Not Detect); Cryptosporidium Not Detected (Not Detect); Cyclospora cayetanensis Not Detected (Not Detect); Entamoeba histolytica Not Detected (Not Detect); Enteroaggregative E.coli Not Detected (Not Detect); Enteropathogenic E.coli Not Detected (Not Detect); Enterotoxigenic E.coli It/st Not Detected (Not Detect); Giardia lamblia Not Detected (Not Detect); Norovirus GI/GII Not Detected (Not Detect); Rotavirus A Not Detected (Not Detect); Sapovirus Not Detected (Not Detect); Shiga-like toxin-prod E.coli Not Detected (Not Detect); Shigella/Enteroinvasive E.coli Not Detected (Not Detect); Vibrio cholerae Not Detected (Not Detect); Yersinia enterocolitica Not Detected (Not Detect)
== END ==
PROVIDERS: Family Provider Obstetrics & Gynecology; PCP Family Medicine; Referring Provider Student in an Organized Health Care Education/Training Program; Visit Provider Student in an Organized Health Care Education/Training Program
DX: R10.31 Right lower quadrant pain (principal); R10.32 Left lower quadrant pain; R19.7 Diarrhea, unspecified
CPT/HCPCS: 87045; 87507; 87899

== ENCOUNTER → 2023-07-03 16:24 | Outpatient (CLI) | payer BC, SELFPAY ==
[2023-07-03 18:10] LABS: Hemoglobin A1C% w Est Avg Glu 5.5 % (4.0-6.0)
[2023-07-03 18:22] LABS: Cholesterol 268 mg/dL (140-199); HDL Cholesterol 68 mg/dL (40-60); LDL Cholesterol Calculated 148 mg/dL (<100); Triglycerides 262 mg/dL (35-150)
[2023-07-05 10:25] LABS: Hematocrit 38.9 % (36-46); Hemoglobin 13.2 g/dL (12.0-16.0); Mean Corpuscular Hemoglobin 30.4 PG (26-34); Mean Corpuscular Volume 89.5 fL (80-100); Platelet Count 314 X10^3/uL (150-400); Red Blood Cell Count 4.35 X10^6/uL (4.0-5.2); Red Cell Distribution Width 13.3 % (11.6-14.8)
[2023-07-05 10:36] LABS: Add Manual Diff / Slide Review YES
[2023-07-05 11:00] LABS: TSH w/ Reflex to FT4 0.26 uIU/mL (0.47-4.68)
[2023-07-05 11:11] LABS: Neutrophils Absolute Manual 4480 /uL (3000-5900); Total Cells Counted 100
[2023-07-05 11:12] LABS: RBC Morphology Normal Morphology; Toxic Vacuolation Pres
[2023-07-05 11:23] LABS: Alanine Aminotransferase 28 IU/L (<35); Albumin 4.3 g/dL (3.5-5.0); Albumin Globulin Ratio 1.4 (1.0-2.8); Alkaline Phosphatase 52 U/L (38-126); Aspartate Aminotransferase 36 IU/L (14-36); BUN Creatinine Ratio 15.5 (6-22); Bilirubin Total 0.3 mg/dL (0.2-1.3); Blood Urea Nitrogen 15 mg/dL (7-17); Calcium 9.4 mg/dL (8.4-10.2); Carbon Dioxide 24 mmol/L (22-32); Chloride 103 mmol/L (98-107); Creatine Kinase 75 U/L (30-135); Estimated Glomerular Filt Rate > 60 mL/min (>60); Glucose 127 mg/dL (70-100); HEMOLYSIS < 15 (0-50); Potassium 4.1 mmol/L (3.4-5.1); Sodium 139 mmol/L (137-145); Total Protein 7.3 g/dL (6.3-8.2)
[2023-07-05 11:25] LABS: Free T4, Direct Thyroxine 1.12 ng/dL (0.78-2.19)
[2023-07-08 06:08] LABS: Insulin Level Total 47.9 uIU/mL (2.6-24.9)
== END ==
PROVIDERS: Family Provider Obstetrics & Gynecology; PCP Family Medicine; Referring Provider Obstetrics & Gynecology; Visit Provider Obstetrics & Gynecology
DX: E03.8 Other specified hypothyroidism (principal); K58.9 Irritable bowel syndrome, unspecified; K58.0 Irritable bowel syndrome with diarrhea; R73.03 Prediabetes; E78.5 Hyperlipidemia, unspecified
CPT/HCPCS: 36415; 80053; 80061; 82550; 83036; 83525; 84439; 84443; 85007; 85025

== ENCOUNTER → 2023-07-04 09:04 | Outpatient (CLI) | payer BC, SELFPAY ==
[2023-07-08 18:17] LABS: Calprotectin, Stool < 5 ug/g (0-120)
[2023-07-09 20:00] LABS: Pancreatic Elastase, Fecal 138 (>200)
== END ==
PROVIDERS: Family Provider Obstetrics & Gynecology; PCP Family Medicine; Referring Provider Obstetrics & Gynecology; Visit Provider Obstetrics & Gynecology
DX: E03.8 Other specified hypothyroidism (principal); K58.9 Irritable bowel syndrome, unspecified; K58.0 Irritable bowel syndrome with diarrhea
CPT/HCPCS: 82656; 83993

== ENCOUNTER → 2023-07-07 15:30 | Outpatient (CLI) | payer BC, SELFPAY | PROVIDERS: Family Provider Obstetrics & Gynecology; PCP Family Medicine; Referring Provider Obstetrics & Gynecology; Visit Provider Obstetrics & Gynecology | DX: E03.8 Other specified hypothyroidism (principal); K58.9 Irritable bowel syndrome, unspecified | CPT/HCPCS: 82710 ==

== ENCOUNTER 2023-08-05 11:00 | Outpatient (RCR) | payer BC, SELFPAY ==
--- NOTE | 2022-11-26 18:21 | PT.OIE ---
Current Diagnoses Other chronic pain (11/26/22) Pain in right shoulder (11/26/22) Pain in left thigh (11/26/22) Fibromyalgia (11/26/22) Difficulty in walking, not elsewhere classified (11/26/22) Abnormal posture (11/26/22) Weakness (11/26/22) Past Medical History (Last Updated 07/25/22 @ 10:54 by Quang Webb MD) Fibromyalgia Prediabetes Past Surgical History (Last Reviewed 10/07/19 @ 13:33 by JASMYN Bettencourt) Status post delivery Visit Care Team Role Provider Type Jenny Manzo MD Family Provider Physician Specialty: Gynecology LIBRARY DIRECTOR Obstetrics Address: [address] [place] [address], [address] Email: [email or web address] Quang Webb MD Attending Provider Physician Primary Care Provider Referring Provider Specialty: Family Practice Address: [address] [place] [address], [address] Email: [email or web address] Physical Therapy Initial Evaluation PT-OP-A Visit Information Start: 11/26/22 09:54 Freq: Status: Active Protocol: Document 11/26/22 09:54 [facility] (Rec: 11/26/22 10:36 [facility] [id number]) Out-Patient Physical Therapy Visit Information Visit Information Visit Type Initial Evaluation Visit Start Time 09:54 Visit Stop Time 10:35 Total Visit Minutes 41 Visit Number 1 Number of DROP WIRE ALIGNER Visits 0 PT-OP-B Current Condition Start: 11/26/22 09:54 Freq: Status: Active Protocol: Document 11/26/22 09:54 [facility] (Rec: 11/26/22 10:36 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 She has fibromyalgia so she has travelling pain. The things she can't do when things are behind her. She has trouble carrying things up narrow hallways and w/pulling things. It wasn't a one time thing but more of a gradual thing. Her xray didn't show much, but MRI showed 5 things that were moderate. 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 The ortho gave a cortizone shot that gave 3-4 weeks and got a different shot in a different location and when that block wore off, she had extreme pain for 18 hours but it didn't help. She went to OT w/Vivian at [facility]. She has been seeing a naturopathic doctor and has been doing prolo and feels like that is helping her. She used to lose her power when she was reaching overhead but that is better. Her main concern in ROM. She is doing a lot of stretches from the OT. Pt woke up 2 weeks ago w/ really bad L hip pain and it is keeping her up and night and it is radiating down L lat and ant down through lower leg. Pt has head pressure when she bends over that lasts until she sits back up. Has been having sleep issues but did do a sleep study. Treatment Goals Patient/Caregiver Goals Wants to be able to IR behind back so she can put on a bra. PT-OP-C Subjective Start: 11/26/22 09:54 Freq: Status: Active Protocol: Document 11/26/22 09:54 [facility] (Rec: 11/26/22 10:36 [facility] [id number]) Patient Questionnaires Quick Dash- Upper Extremity Quick Dash UE Score 22.72 OP-PT Pain Assessment Location R shoulder Pain Location Details deep inside Frequency Intermittent Pain Aggravating Factors Lifting Other Pain Aggravating Factors reaching behind back, reaching up and pull down car. Other Pain Alleviating Factors move out of bad positions LLE Pain Location Details L hip deep then ant/lat Frequency Frequent Pain Aggravating Factors Walking,Stair Climbing Other Pain Alleviating Factors unsure PT-OP-D Balance Start: 11/26/22 09:54 Freq: Status: Active Protocol: Document 11/26/22 09:54 [facility] (Rec: 11/26/22 10:36 [facility] [id number]) Balance Tests Single Limb Standing Single Limb- Right 5 sec Single Limb- Left 7 sec PT-OP-F Manual Assessment Start: 11/26/22 09:54 Freq: Status: Active Protocol: Document 11/26/22 09:54 [facility] (Rec: 11/26/22 10:36 [facility] [id number]) Manual Assessments Joint Mobility Assessment Joint Mobility Assessment equal greater troch and iliac crests B; sidebent to R, R shoulder lower than L, Humerus R is ant in glenoid PT-OP-G Mobility & Gait Start: 11/26/22 09:54 Freq: Status: Active Protocol: Document 11/26/22 09:54 [facility] (Rec: 11/26/22 10:36 [facility] [id number]) OP Gait Assessment Comments Gait Comments dec LUE swing, dec push off on LLE, excessive pelvis rotation PT-OP-J Posture/Palpation/Skin Start: 11/26/22 09:54 Freq: Status: Active Protocol: Document 11/26/22 09:54 [facility] (Rec: 11/26/22 10:36 [facility] [id number]) Posture Evaluation [facility] Postural Classification System [place] Postural Classifications Posterior/Posterior Elbow Flexion Test 1 Lumbar Protective Mechanism Left AP 0 Lumbar Protective Mechanism Right AP 0 Lumbar Protective Mechanism Left PA 4 Lumbar Protective Mechanism Right PA 1 PT-OP-K Range of Motion Start: 11/26/22 09:54 Freq: Status: Active Protocol: Document 11/26/22 09:54 [facility] (Rec: 11/26/22 10:36 [facility] [id number]) Shoulder Goniometric Range of Motion Shoulder Right Active Flexion 132 Extension 50 Abduction 162 External Rotation at 90 degrees 93 Abduction External Rotation at 0 degrees Abduction 50 Internal Rotation Behind Back (text) T12 Comments pain abd coming down and pt went into flex when abd Left Active Flexion 156 Extension 70 Abduction 180 External Rotation at 90 degrees 95 Abduction External Rotation at 0 degrees Abduction 52 Internal Rotation Behind Back (text) T6 PT-OP-L Special Tests Start: 11/26/22 09:54 Freq: Status: Active Protocol: Document 11/26/22 09:54 [facility] (Rec: 11/26/22 10:36 [facility] [id number]) Special Tests Shoulder Special Tests Garcia Michael Impingement Test Results neg Neer Impingement Test Results neg Empty Can Test Results neg Hip Special Tests Bev's Test Results mild tightness L Slump Test Results neg B Straight Leg Raise Test Results positive limited B Neural Special Tests- Upper Body Median Nerve Tension Test Results positve R tension Ulnar Nerve Tension Test Results neg Radial Nerve Tension Test Results neg PT-OP-M Strength Start: 11/26/22 09:54 Freq: Status: Active Protocol: Document 11/26/22 09:54 [facility] (Rec: 11/26/22 10:36 [facility] [id number]) Shoulder Strength Shoulder Manual Muscle Testing Right Flexion 3+ Fair+ Extension 3+ Fair+ Abduction (C5) 4- Good- External Rotation 3+ Fair+ Internal Rotation 3+ Fair+ Left Flexion 4 Good Extension 5 Normal Abduction (C5) 4+ Good+ External Rotation 4+ Good+ Internal Rotation 4+ Good+ Hip Strength Hip Manual Muscle Testing Right Flexion (L2) 3+ Fair+ Extension (S1) 4- Good- Abduction 4 Good Adduction 4 Good External Rotation 3+ Fair+ Internal Rotation 5 Normal Left Flexion (L2) 3+ Fair+ Extension (S1) 3+ Fair+ Abduction 4- Good- Adduction 3+ Fair+ External Rotation 3+ Fair+ Internal Rotation 3+ Fair+ Knee Strength Knee Manual Muscle Testing Right Flexion (S2) 5 Normal Extension (L3) 5 Normal Left Flexion (S2) 4 Good Extension (L3) 4 Good Ankle/Foot Strength Ankle and Foot Manual Muscle Testing Right Dorsiflexion (L4) 5 Normal Plantarflexion (S1) 5 Normal Comments cues to keep knee straight Left Dorsiflexion (L4) 5 Normal Plantarflexion (S1) 5 Normal Comments 20 heel raises B ; B pain in post thigh PT-OP-T Assessment and Plan Start: 11/26/22 09:54 Freq: Status: Active Protocol: Document 11/26/22 09:54 [facility] (Rec: 11/26/22 10:36 [facility] [id number]) Physical Therapy Assessment Rehab Potential Rehabilitation Potential Good Evaluation Complexity Number of Personal Factors/Comorbidities 3 or More Number of Body Systems Impaired 4 or More Clinical Presentation at Evaluation Evolving Impairments Impairments Activity Tolerance,Balance, Functional Activities, Functional Mobility,Gait,Pain, Posture,ROM,Soft Tissue Mobility,Strength Goals balance Rn Plasma Center Goal (LTG) pt will be able to do SLS for 10 sec B LTG Duration 02/18/23 ROM Senior Living Goal (LTG) Pt will have R Shoulder AROM equal to L shoulder in order to allow for donning/doffing bra, reaching overhead, etc. LTG Duration 02/18/23 strength Short Term Goal (STG) Pt will be indep w/HEP STG Duration 01/11/23 Rn Plasma Center Goal (LTG) pt will score at least 3/5 on LPM and EFT and at least 4+/5 on BUE and BLE MMT to show improved stability in order to do her job and daily activities w/less pain. LTG Duration 02/18/23 work Senior Living Goal (LTG) Pt will be able to carry and pull the objects she needs without inc pain. LTG Duration 02/18/23 Assessment Summary Assessment pt had R shoulder overuse injury at work about 1-1.5 years ago with the amount of pulling, lifting, carrying of heavy bottles etc she does. She has fibromyalgia and has travelling pain throughout her body w/a recent flare of L hip pain that radiates down ant and lat LE. She has history of neck and back pain that comes and goes and will benefit from treatment that is comprehensive helping to improve pain in the areas that it is worst at the time. She has poor shoulder positioning and mechanics and has some dec R shoulder ROM and significant strength dec along w/dec LLE strength. She would benefit from skilled PT to dec her overall body pain and improve her mobility. Physical Therapy Plan Frequency and Duration Frequency of Treatment 2x/Week Duration of treatment (weeks) 12 Plan of Care Start Date 11/26/22 Plan of Care End Date 02/18/23 Therapeutic Interventions Therapeutic Interventions Balance Training,Gait Training ,Home Exercise Program,Joint Mobilizations,Manual Therapy, Neuromuscular Re-education, Orthotic/Prosthetic Management ,Patient/Caregiver Education, Self-Care/Home Management,Soft Tissue Mobilization,Taping, Therapeutic Activities, Therapeutic Exercises Modalities Cold Pack/Ice Massage,Electric Stimulation,Hot Packs, Infrared Therapy,Iontophoresis ,Ultrasound Other Therapeutic Interventions ionto dexomethosone Next Visit Focus/Plan Next Note Type Treatment Note Next Visit Plan cheri delacruz R UT stretch, AAROM flex cane, ER cheri DL core isometric, hip flexor stretch for HEP; manual to soft tissue R shoulder, AC & SC mobs, hip on axis mobs
--- NOTE | 2022-11-26 18:21 | PT.OPPOC ---
Physical, Occupational & Speech Therapy At [facility] Current Diagnoses Other chronic pain (11/26/22) Pain in right shoulder (11/26/22) Pain in left thigh (11/26/22) Fibromyalgia (11/26/22) Difficulty in walking, not elsewhere classified (11/26/22) Abnormal posture (11/26/22) Weakness (11/26/22) Visit Care Team Role Provider Type Jenny Manzo MD Family Provider Physician Specialty: Gynecology MARKETING/SALES PERSON Obstetrics Address: [address] [place] [address], [address] Email: [email or web address] Quang Webb MD Attending Provider Physician Primary Care Provider Referring Provider Specialty: Family Practice Address: [address] [place] [address], [facility] Email: [email or web address] Plan Of Care PT-OP-T Assessment and Plan Start: 11/26/22 09:54 Freq: Status: Active Protocol: Document 11/26/22 09:54 [facility] (Rec: 11/26/22 10:36 [facility] [id number]) Physical Therapy Assessment Rehab Potential Rehabilitation Potential Good Evaluation Complexity Number of Personal Factors/Comorbidities 3 or More Number of Body Systems Impaired 4 or More Clinical Presentation at Evaluation Evolving Impairments Impairments Activity Tolerance,Balance, Functional Activities, Functional Mobility,Gait,Pain, Posture,ROM,Soft Tissue Mobility,Strength Goals balance Fpc Goal (LTG) pt will be able to do SLS for 10 sec B LTG Duration 02/18/23 ROM [facility]pc Goal (LTG) Pt will have R Shoulder AROM equal to L shoulder in order to allow for donning/doffing bra, reaching overhead, etc. LTG Duration 02/18/23 strength Short Term Goal (STG) Pt will be indep w/HEP STG Duration 01/11/23 Wire Straightener Goal (LTG) pt will score at least 3/5 on LPM and EFT and at least 4+/5 on BUE and BLE MMT to show improved stability in order to do her job and daily activities w/less pain. LTG Duration 02/18/23 work Wire Straightener Goal (LTG) Pt will be able to carry and pull the objects she needs without inc pain. LTG Duration 02/18/23 Assessment Summary Assessment pt had R shoulder overuse injury at work about 1-1.5 years ago with the amount of pulling, lifting, carrying of heavy bottles etc she does. She has fibromyalgia and has travelling pain throughout her body w/a recent flare of L hip pain that radiates down ant and lat LE. She has history of neck and back pain that comes and goes and will benefit from treatment that is comprehensive helping to improve pain in the areas that it is worst at the time. She has poor shoulder positioning and mechanics and has some dec R shoulder ROM and significant strength dec along w/dec LLE strength. She would benefit from skilled PT to dec her overall body pain and improve her mobility. Physical Therapy Plan Frequency and Duration Frequency of Treatment 2x/Week Duration of treatment (weeks) 12 Plan of Care Start Date 11/26/22 Plan of Care End Date 02/18/23 Therapeutic Interventions Therapeutic Interventions Balance Training,Gait Training ,Home Exercise Program,Joint Mobilizations,Manual Therapy, Neuromuscular Re-education, Orthotic/Prosthetic Management ,Patient/Caregiver Education, Self-Care/Home Management,Soft Tissue Mobilization,Taping, Therapeutic Activities, Therapeutic Exercises Modalities Cold Pack/Ice Massage,Electric Stimulation,Hot Packs, Infrared Therapy,Iontophoresis ,Ultrasound Other Therapeutic Interventions ionto dexomethosone Next Visit Focus/Plan Next Note Type Treatment Note Next Visit Plan tband row, R UT stretch, AAROM flex cane, ER tband, DL core isometric, hip flexor stretch for HEP; manual to soft tissue R shoulder, AC & SC mobs, hip on axis mobs Plan of Care Dates Plan of Care Start Date 11/26/22 Plan of Care End Date 02/18/23 Electronically Signed by: China Aguirre, PT 11/26/22 [id number] If you are in agreement with this Plan of Care, please return a signed and dated copy. I have reviewed this Plan of Care and certify that the skilled therapy services above are required to meet the patient?s needs. Physician Signature Date Printed Name and Credentials Clinical Instructor Signature Printed Name and Credentials
--- NOTE | 2022-12-05 15:19 | PT.OTN ---
Current Diagnoses Other chronic pain (12/05/22) Pain in right shoulder (12/05/22) Pain in left thigh (12/05/22) Fibromyalgia (12/05/22) Difficulty in walking, not elsewhere classified (12/05/22) Abnormal posture (12/05/22) Weakness (12/05/22) Physical Therapy Treatment Note PT-OP-A Visit Information Start: 11/26/22 09:54 Freq: Status: Active Protocol: Document 12/05/22 14:33 [facility] (Rec: 12/05/22 15:18 [facility] [id number]) Out-Patient Physical Therapy Visit Information Visit Information Visit Type Treatment Note Visit Start Time 14:34 Visit Stop Time 15:15 Total Visit Minutes 41 Visit Number 2 Number of UNDER SHERIFF Visits 0 PT-OP-B Current Condition Start: 11/26/22 09:54 Freq: Status: Active Protocol: Document 11/26/22 09:54 [facility] (Rec: 11/26/22 10:36 [facility] [id number]) Current Condition History of Current Condition Onset Date 1-1.5 ear ago Current Complaints R shoulder pain & L hip and leg pain History of Current Condition Pt reports about 1-1.5 years ago, 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 She has fibromyalgia so she has travelling pain. The things she can't do when things are behind her. She has trouble carrying things up narrow hallways and w/pulling things. It wasn't a one time thing but more of a gradual thing. Her xray didn't show much, but MRI showed 5 things that were moderate. 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 The ortho gave a cortizone shot that gave 3-4 weeks and got a different shot in a different location and when that block wore off, she had extreme pain for 18 hours but it didn't help. She went to OT w/Vivian at [facility]. She has been seeing a naturopathic doctor and has been doing prolo and feels like that is helping her. She used to lose her power when she was reaching overhead but that is better. Her main concern in ROM. She is doing a lot of stretches from the OT. Pt woke up 2 weeks ago w/ really bad L hip pain and it is keeping her up and night and it is radiating down L lat and ant down through lower leg. Pt has head pressure when she bends over that lasts until she sits back up. Has been having sleep issues but did do a sleep study. Treatment Goals Patient/Caregiver Goals Wants to be able to IR behind back so she can put on a bra. PT-OP-C Subjective Start: 11/26/22 09:54 Freq: Status: Active Protocol: Document 12/05/22 14:33 [facility] (Rec: 12/05/22 15:18 [facility] [id number]) OP-PT Subjective Patient Comments Patient Comments pt reports doing okay after eval PT-OP-D Balance Start: 11/26/22 09:54 Freq: Status: Active Protocol: Document 11/26/22 09:54 [facility] (Rec: 11/26/22 10:36 [facility] [id number]) Balance Tests Single Limb Standing Single Limb- Right 5 sec Single Limb- Left 7 sec PT-OP-F Manual Assessment Start: 11/26/22 09:54 Freq: Status: Active Protocol: Document 11/26/22 09:54 [facility] (Rec: 11/26/22 10:36 [facility] [id number]) Manual Assessments Joint Mobility Assessment Joint Mobility Assessment equal greater troch and iliac crests B; sidebent to R, R shoulder lower than L, Humerus R is ant in glenoid PT-OP-G Mobility & Gait Start: 11/26/22 09:54 Freq: Status: Active Protocol: Document 11/26/22 09:54 [facility] (Rec: 11/26/22 10:36 [facility] [id number]) OP Gait Assessment Comments Gait Comments dec LUE swing, dec push off on LLE, excessive pelvis rotation PT-OP-J Posture/Palpation/Skin Start: 11/26/22 09:54 Freq: Status: Active Protocol: Document 11/26/22 09:54 [facility] (Rec: 11/26/22 10:36 [facility] [id number]) Posture Evaluation [facility] Postural Classification System [facility] Postural Classifications Posterior/Posterior Elbow Flexion Test 1 Lumbar Protective Mechanism Left AP 0 Lumbar Protective Mechanism Right AP 0 Lumbar Protective Mechanism Left PA 4 Lumbar Protective Mechanism Right PA 1 PT-OP-K Range of Motion Start: 11/26/22 09:54 Freq: Status: Active Protocol: Document 11/26/22 09:54 [facility] (Rec: 11/26/22 10:36 [facility] [id number]) Shoulder Goniometric Range of Motion Shoulder Right Active Flexion 132 Extension 50 Abduction 162 External Rotation at 90 degrees 93 Abduction External Rotation at 0 degrees Abduction 50 Internal Rotation Behind Back (text) T12 Comments pain abd coming down and pt went into flex when abd Left Active Flexion 156 Extension 70 Abduction 180 External Rotation at 90 degrees 95 Abduction External Rotation at 0 degrees Abduction 52 Internal Rotation Behind Back (text) T6 PT-OP-L Special Tests Start: 11/26/22 09:54 Freq: Status: Active Protocol: Document 11/26/22 09:54 [facility] (Rec: 11/26/22 10:36 [facility] [id number]) Special Tests Shoulder Special Tests Garcia Michael Impingement Test Results neg Neer Impingement Test Results neg Empty Can Test Results neg Hip Special Tests Bev's Test Results mild tightness L Slump Test Results neg B Straight Leg Raise Test Results positive limited B Neural Special Tests- Upper Body Median Nerve Tension Test Results positve R tension Ulnar Nerve Tension Test Results neg Radial Nerve Tension Test Results neg PT-OP-M Strength Start: 11/26/22 09:54 Freq: Status: Active Protocol: Document 11/26/22 09:54 [facility] (Rec: 11/26/22 10:36 [facility] [id number]) Shoulder Strength Shoulder Manual Muscle Testing Right Flexion 3+ Fair+ Extension 3+ Fair+ Abduction (C5) 4- Good- External Rotation 3+ Fair+ Internal Rotation 3+ Fair+ Left Flexion 4 Good Extension 5 Normal Abduction (C5) 4+ Good+ External Rotation 4+ Good+ Internal Rotation 4+ Good+ Hip Strength Hip Manual Muscle Testing Right Flexion (L2) 3+ Fair+ Extension (S1) 4- Good- Abduction 4 Good Adduction 4 Good External Rotation 3+ Fair+ Internal Rotation 5 Normal Left Flexion (L2) 3+ Fair+ Extension (S1) 3+ Fair+ Abduction 4- Good- Adduction 3+ Fair+ External Rotation 3+ Fair+ Internal Rotation 3+ Fair+ Knee Strength Knee Manual Muscle Testing Right Flexion (S2) 5 Normal Extension (L3) 5 Normal Left Flexion (S2) 4 Good Extension (L3) 4 Good Ankle/Foot Strength Ankle and Foot Manual Muscle Testing Right Dorsiflexion (L4) 5 Normal Plantarflexion (S1) 5 Normal Comments cues to keep knee straight Left Dorsiflexion (L4) 5 Normal Plantarflexion (S1) 5 Normal Comments 20 heel raises B ; B pain in post thigh PT-OP-Q Treatments Start: 11/26/22 09:54 Freq: Status: Active Protocol: Document 12/05/22 14:33 [facility] (Rec: 12/05/22 15:18 [facility] [id number]) Therapeutic Exercises Supine Exercises core Supine Exercise Name B hip flex iso Side bilateral Reps/Minutes 30 sec x2 flex Supine Exercise Name AAROM R Equipment Used cane Reps/Minutes 15 Sitting Exercises UT stretch Side bilateral Reps/Minutes 30 sec Standing Exercises hip flexor stretch Side bilateral Reps/Minutes 30 sec B x2 ER Side bilateral Equipment Used L1 Reps/Minutes 15 rows Side bilateral Equipment Used L1 Reps/Minutes 15 Manual Therapy Treatment Soft Tissue Mobilization hip Body Location glutes L FM Mobilization Type Sustained Pressure Superior Body Location scalenes, UT, LS R FM Mobilization Type Rolling Intensity/Depth Moderate Body Position Sidelying Joint Mobilizations SC Joint AP & caudal FM AC Joint R ant FM hip Joint L Direction on axis ER FM PT-OP-T Assessment and Plan Start: 11/26/22 09:54 Freq: Status: Active Protocol: Document 12/05/22 14:33 [facility] (Rec: 12/05/22 15:18 [facility] [id number]) Physical Therapy Assessment Goals balance Wharf Tender Goal (LTG) pt will be able to do SLS for 10 sec B LTG Duration 02/18/23 ROM Fpc Goal (LTG) Pt will have R Shoulder AROM equal to L shoulder in order to allow for donning/doffing bra, reaching overhead, etc. LTG Duration 02/18/23 strength Short Term Goal (STG) Pt will be indep w/HEP STG Duration 01/11/23 Wharf Tender Goal (LTG) pt will score at least 3/5 on LPM and EFT and at least 4+/5 on BUE and BLE MMT to show improved stability in order to do her job and daily activities w/less pain. LTG Duration 02/18/23 work Wharf Tender Goal (LTG) Pt will be able to carry and pull the objects she needs without inc pain. LTG Duration 02/18/23 Assessment Summary Assessment Pt required cues with exercises and edu to stay in comfortable range. She showed good understanding w/exercises though. She had improved scap ROM w/manualt reatment and reported relief w/this Physical Therapy Plan Next Visit Focus/Plan Next Note Type Treatment Note Next Visit Plan review:cheri delacruz, R UT stretch , AAROM flex cane, ER cheri, DL core isometric, hip flexor stretch for HEP; manual to soft tissue R shoulder, AC & SC mobs & GH, hip on axis mobs & work into ant hip
--- NOTE | 2022-12-09 17:54 | PT.OTN ---
Current Diagnoses Other chronic pain (12/09/22) Pain in right shoulder (12/09/22) Pain in left thigh (12/09/22) Fibromyalgia (12/09/22) Difficulty in walking, not elsewhere classified (12/09/22) Abnormal posture (12/09/22) Weakness (12/09/22) Physical Therapy Treatment Note PT-OP-A Visit Information Start: 11/26/22 09:54 Freq: Status: Active Protocol: Document 12/09/22 16:52 [facility] (Rec: 12/09/22 17:53 [facility] [id number]) Out-Patient Physical Therapy Visit Information Visit Information Visit Type Treatment Note Visit Start Time 16:52 Visit Stop Time 17:34 Total Visit Minutes 42 Visit Number 3 Number of SHIPPING MANAGER Visits 0 PT-OP-B Current Condition Start: 11/26/22 09:54 Freq: Status: Active Protocol: Document 11/26/22 09:54 [facility] (Rec: 11/26/22 10:36 [facility] [id number]) Current Condition History of Current Condition Onset Date 1-1.5 ear ago Current Complaints R shoulder pain & L hip and leg pain History of Current Condition Pt reports about 1-1.5 years ago, 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 She has fibromyalgia so she has travelling pain. The things she can't do when things are behind her. She has trouble carrying things up narrow hallways and w/pulling things. It wasn't a one time thing but more of a gradual thing. Her xray didn't show much, but MRI showed 5 things that were moderate. 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 The ortho gave a cortizone shot that gave 3-4 weeks and got a different shot in a different location and when that block wore off, she had extreme pain for 18 hours but it didn't help. She went to OT w/Vivian at [facility]. She has been seeing a naturopathic doctor and has been doing prolo and feels like that is helping her. She used to lose her power when she was reaching overhead but that is better. Her main concern in ROM. She is doing a lot of stretches from the OT. Pt woke up 2 weeks ago w/ really bad L hip pain and it is keeping her up and night and it is radiating down L lat and ant down through lower leg. Pt has head pressure when she bends over that lasts until she sits back up. Has been having sleep issues but did do a sleep study. Treatment Goals Patient/Caregiver Goals Wants to be able to IR behind back so she can put on a bra. PT-OP-C Subjective Start: 11/26/22 09:54 Freq: Status: Active Protocol: Document 12/09/22 16:52 [facility] (Rec: 12/09/22 17:53 [facility] [id number]) OP-PT Subjective Patient Comments Patient Comments Pt reports after last session, she was sore on B collar bones for about 24 hours. She doesn't feel like it was a bad thing. Pt reports L leg got way worse yesterday and pain is going into L trunk. Every step on L side, she feels pain in L leg PT-OP-D Balance Start: 11/26/22 09:54 Freq: Status: Active Protocol: Document 11/26/22 09:54 [facility] (Rec: 11/26/22 10:36 [facility] [id number]) Balance Tests Single Limb Standing Single Limb- Right 5 sec Single Limb- Left 7 sec PT-OP-F Manual Assessment Start: 11/26/22 09:54 Freq: Status: Active Protocol: Document 11/26/22 09:54 [facility] (Rec: 11/26/22 10:36 [facility] [id number]) Manual Assessments Joint Mobility Assessment Joint Mobility Assessment equal greater troch and iliac crests B; sidebent to R, R shoulder lower than L, Humerus R is ant in glenoid PT-OP-G Mobility & Gait Start: 11/26/22 09:54 Freq: Status: Active Protocol: Document 11/26/22 09:54 [facility] (Rec: 11/26/22 10:36 [facility] [id number]) OP Gait Assessment Comments Gait Comments dec LUE swing, dec push off on LLE, excessive pelvis rotation PT-OP-J Posture/Palpation/Skin Start: 11/26/22 09:54 Freq: Status: Active Protocol: Document 11/26/22 09:54 [facility] (Rec: 11/26/22 10:36 [facility] [id number]) Posture Evaluation [facility] Postural Classification System [facility] Postural Classifications Posterior/Posterior Elbow Flexion Test 1 Lumbar Protective Mechanism Left AP 0 Lumbar Protective Mechanism Right AP 0 Lumbar Protective Mechanism Left PA 4 Lumbar Protective Mechanism Right PA 1 PT-OP-K Range of Motion Start: 11/26/22 09:54 Freq: Status: Active Protocol: Document 11/26/22 09:54 [facility] (Rec: 11/26/22 10:36 [facility] [id number]) Shoulder Goniometric Range of Motion Shoulder Right Active Flexion 132 Extension 50 Abduction 162 External Rotation at 90 degrees 93 Abduction External Rotation at 0 degrees Abduction 50 Internal Rotation Behind Back (text) T12 Comments pain abd coming down and pt went into flex when abd Left Active Flexion 156 Extension 70 Abduction 180 External Rotation at 90 degrees 95 Abduction External Rotation at 0 degrees Abduction 52 Internal Rotation Behind Back (text) T6 PT-OP-L Special Tests Start: 11/26/22 09:54 Freq: Status: Active Protocol: Document 11/26/22 09:54 [facility] (Rec: 11/26/22 10:36 [facility] [id number]) Special Tests Shoulder Special Tests Garcia Michael Impingement Test Results neg Neer Impingement Test Results neg Empty Can Test Results neg Hip Special Tests Bev's Test Results mild tightness L Slump Test Results neg B Straight Leg Raise Test Results positive limited B Neural Special Tests- Upper Body Median Nerve Tension Test Results positve R tension Ulnar Nerve Tension Test Results neg Radial Nerve Tension Test Results neg PT-OP-M Strength Start: 11/26/22 09:54 Freq: Status: Active Protocol: Document 11/26/22 09:54 [facility] (Rec: 11/26/22 10:36 [facility] [id number]) Shoulder Strength Shoulder Manual Muscle Testing Right Flexion 3+ Fair+ Extension 3+ Fair+ Abduction (C5) 4- Good- External Rotation 3+ Fair+ Internal Rotation 3+ Fair+ Left Flexion 4 Good Extension 5 Normal Abduction (C5) 4+ Good+ External Rotation 4+ Good+ Internal Rotation 4+ Good+ Hip Strength Hip Manual Muscle Testing Right Flexion (L2) 3+ Fair+ Extension (S1) 4- Good- Abduction 4 Good Adduction 4 Good External Rotation 3+ Fair+ Internal Rotation 5 Normal Left Flexion (L2) 3+ Fair+ Extension (S1) 3+ Fair+ Abduction 4- Good- Adduction 3+ Fair+ External Rotation 3+ Fair+ Internal Rotation 3+ Fair+ Knee Strength Knee Manual Muscle Testing Right Flexion (S2) 5 Normal Extension (L3) 5 Normal Left Flexion (S2) 4 Good Extension (L3) 4 Good Ankle/Foot Strength Ankle and Foot Manual Muscle Testing Right Dorsiflexion (L4) 5 Normal Plantarflexion (S1) 5 Normal Comments cues to keep knee straight Left Dorsiflexion (L4) 5 Normal Plantarflexion (S1) 5 Normal Comments 20 heel raises B ; B pain in post thigh PT-OP-Q Treatments Start: 11/26/22 09:54 Freq: Status: Active Protocol: Document 12/09/22 16:52 [facility] (Rec: 12/09/22 17:53 [facility] [id number]) Therapeutic Exercises Standing Exercises hip flexor stretch Side bilateral Reps/Minutes 30 sec Manual Therapy Treatment Soft Tissue Mobilization back Body Location L QL, ES & intercostals & lats Mobilization Type Rolling Intensity/Depth Moderate Body Position Sidelying Comments FM; use of plunger on lat hip Body Location L iliacus, adductors Mobilization Type Rolling,Sustained Pressure Intensity/Depth Moderate Comments FM Joint Mobilizations ribs Comments rib 9 ER FM L; L SB glide rib 6-7 FM innominate Joint L Direction flex FM hip Joint L Direction on axis ER FM & inf FM Body Position Hooklying PT-OP-T Assessment and Plan Start: 11/26/22 09:54 Freq: Status: Active Protocol: Document 12/09/22 16:52 [facility] (Rec: 12/09/22 17:53 [facility] [id number]) Physical Therapy Assessment Goals balance Snf Goal (LTG) pt will be able to do SLS for 10 sec B LTG Duration 02/18/23 ROM Consulting Sme Goal (LTG) Pt will have R Shoulder AROM equal to L shoulder in order to allow for donning/doffing bra, reaching overhead, etc. LTG Duration 02/18/23 strength Short Term Goal (STG) Pt will be indep w/HEP STG Duration 01/11/23 Snf Goal (LTG) pt will score at least 3/5 on LPM and EFT and at least 4+/5 on BUE and BLE MMT to show improved stability in order to do her job and daily activities w/less pain. LTG Duration 02/18/23 work Snf Goal (LTG) Pt will be able to carry and pull the objects she needs without inc pain. LTG Duration 02/18/23 Assessment Summary Assessment Focus on L hip and back today d/t pt c/o most pain in this location. She had improved post pelvic L dep after manual along w/improved L hip flex, ER ROM and spinal rotation & SB w/manual. Pt encoruaged to use ice/heat for pain and cont ROM exercsies. Physical Therapy Plan Frequency and Duration Frequency of Treatment 2x/Week Duration of treatment (weeks) 12 Plan of Care Start Date 11/26/22 Plan of Care End Date 02/18/23 Next Visit Focus/Plan Next Note Type Treatment Note Next Visit Plan review:cheri delacruz, R UT stretch , AAROM flex cane, ER tband, DL core isometric, hip flexor stretch for HEP; manual to soft tissue R shoulder, AC & SC mobs & GH, hip on axis mobs & work into ant hip
--- NOTE | 2022-12-11 12:20 | PT.OTN ---
Current Diagnoses Other chronic pain (12/11/22) Pain in right shoulder (12/11/22) Pain in left thigh (12/11/22) Fibromyalgia (12/11/22) Difficulty in walking, not elsewhere classified (12/11/22) Abnormal posture (12/11/22) Weakness (12/11/22) Physical Therapy Treatment Note PT-OP-A Visit Information Start: 11/26/22 09:54 Freq: Status: Active Protocol: Document 12/11/22 09:50 [facility] (Rec: 12/11/22 12:20 [facility] [id number]) Out-Patient Physical Therapy Visit Information Visit Information Visit Type Treatment Note Visit Start Time 09:50 Visit Stop Time 10:30 Total Visit Minutes 40 Visit Number 4 Number of VAN LOADER Visits 0 PT-OP-B Current Condition Start: 11/26/22 09:54 Freq: Status: Active Protocol: Document 11/26/22 09:54 [facility] (Rec: 11/26/22 10:36 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 She has fibromyalgia so she has travelling pain. The things she can't do when things are behind her. She has trouble carrying things up narrow hallways and w/pulling things. It wasn't a one time thing but more of a gradual thing. Her xray didn't show much, but MRI showed 5 things that were moderate. 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 The ortho gave a cortizone shot that gave 3-4 weeks and got a different shot in a different location and when that block wore off, she had extreme pain for 18 hours but it didn't help. She went to OT w/Vivian at [facility]. She has been seeing a naturopathic doctor and has been doing prolo and feels like that is helping her. She used to lose her power when she was reaching overhead but that is better. Her main concern in ROM. She is doing a lot of stretches from the OT. Pt woke up 2 weeks ago w/ really bad L hip pain and it is keeping her up and night and it is radiating down L lat and ant down through lower leg. Pt has head pressure when she bends over that lasts until she sits back up. Has been having sleep issues but did do a sleep study. Treatment Goals Patient/Caregiver Goals Wants to be able to IR behind back so she can put on a bra. PT-OP-C Subjective Start: 11/26/22 09:54 Freq: Status: Active Protocol: Document 12/11/22 09:50 [facility] (Rec: 12/11/22 12:20 [facility] [id number]) OP-PT Subjective Patient Comments Patient Comments Pt reports last session helped but still having a lot of the same LE issues. PT-OP-D Balance Start: 11/26/22 09:54 Freq: Status: Active Protocol: Document 11/26/22 09:54 [facility] (Rec: 11/26/22 10:36 [facility] [id number]) Balance Tests Single Limb Standing Single Limb- Right 5 sec Single Limb- Left 7 sec PT-OP-F Manual Assessment Start: 11/26/22 09:54 Freq: Status: Active Protocol: Document 11/26/22 09:54 [facility] (Rec: 11/26/22 10:36 [facility] [id number]) Manual Assessments Joint Mobility Assessment Joint Mobility Assessment equal greater troch and iliac crests B; sidebent to R, R shoulder lower than L, Humerus R is ant in glenoid PT-OP-G Mobility & Gait Start: 11/26/22 09:54 Freq: Status: Active Protocol: Document 11/26/22 09:54 [facility] (Rec: 11/26/22 10:36 [facility] [id number]) OP Gait Assessment Comments Gait Comments dec LUE swing, dec push off on LLE, excessive pelvis rotation PT-OP-J Posture/Palpation/Skin Start: 11/26/22 09:54 Freq: Status: Active Protocol: Document 11/26/22 09:54 [facility] (Rec: 11/26/22 10:36 [facility] [id number]) Posture Evaluation [facility] Postural Classification System [facility] Postural Classifications Posterior/Posterior Elbow Flexion Test 1 Lumbar Protective Mechanism Left AP 0 Lumbar Protective Mechanism Right AP 0 Lumbar Protective Mechanism Left PA 4 Lumbar Protective Mechanism Right PA 1 PT-OP-K Range of Motion Start: 11/26/22 09:54 Freq: Status: Active Protocol: Document 11/26/22 09:54 [facility] (Rec: 11/26/22 10:36 [facility] [id number]) Shoulder Goniometric Range of Motion Shoulder Right Active Flexion 132 Extension 50 Abduction 162 External Rotation at 90 degrees 93 Abduction External Rotation at 0 degrees Abduction 50 Internal Rotation Behind Back (text) T12 Comments pain abd coming down and pt went into flex when abd Left Active Flexion 156 Extension 70 Abduction 180 External Rotation at 90 degrees 95 Abduction External Rotation at 0 degrees Abduction 52 Internal Rotation Behind Back (text) T6 PT-OP-L Special Tests Start: 11/26/22 09:54 Freq: Status: Active Protocol: Document 11/26/22 09:54 [facility] (Rec: 11/26/22 10:36 [facility] [id number]) Special Tests Shoulder Special Tests Garcia Michael Impingement Test Results neg Neer Impingement Test Results neg Empty Can Test Results neg Hip Special Tests Bev's Test Results mild tightness L Slump Test Results neg B Straight Leg Raise Test Results positive limited B Neural Special Tests- Upper Body Median Nerve Tension Test Results positve R tension Ulnar Nerve Tension Test Results neg Radial Nerve Tension Test Results neg PT-OP-M Strength Start: 11/26/22 09:54 Freq: Status: Active Protocol: Document 11/26/22 09:54 [facility] (Rec: 11/26/22 10:36 [facility] [id number]) Shoulder Strength Shoulder Manual Muscle Testing Right Flexion 3+ Fair+ Extension 3+ Fair+ Abduction (C5) 4- Good- External Rotation 3+ Fair+ Internal Rotation 3+ Fair+ Left Flexion 4 Good Extension 5 Normal Abduction (C5) 4+ Good+ External Rotation 4+ Good+ Internal Rotation 4+ Good+ Hip Strength Hip Manual Muscle Testing Right Flexion (L2) 3+ Fair+ Extension (S1) 4- Good- Abduction 4 Good Adduction 4 Good External Rotation 3+ Fair+ Internal Rotation 5 Normal Left Flexion (L2) 3+ Fair+ Extension (S1) 3+ Fair+ Abduction 4- Good- Adduction 3+ Fair+ External Rotation 3+ Fair+ Internal Rotation 3+ Fair+ Knee Strength Knee Manual Muscle Testing Right Flexion (S2) 5 Normal Extension (L3) 5 Normal Left Flexion (S2) 4 Good Extension (L3) 4 Good Ankle/Foot Strength Ankle and Foot Manual Muscle Testing Right Dorsiflexion (L4) 5 Normal Plantarflexion (S1) 5 Normal Comments cues to keep knee straight Left Dorsiflexion (L4) 5 Normal Plantarflexion (S1) 5 Normal Comments 20 heel raises B ; B pain in post thigh PT-OP-Q Treatments Start: 11/26/22 09:54 Freq: Status: Active Protocol: Document 12/11/22 09:50 [facility] (Rec: 12/11/22 12:20 [facility] [id number]) Manual Therapy Treatment Soft Tissue Mobilization back Body Location L QL Mobilization Type Rolling Intensity/Depth Moderate Body Position Sidelying Comments FM hip Body Location L iliacus, adductors Mobilization Type Rolling,Sustained Pressure Intensity/Depth Moderate Comments FM Joint Mobilizations lumbar Comments transverse R T1-2 FM innominate Joint L Direction abd FM hip Joint L Direction on axis ER hooklying FM & inf FM, abd FM Body Position Hooklying PT-OP-T Assessment and Plan Start: 11/26/22 09:54 Freq: Status: Active Protocol: Document 12/11/22 09:50 [facility] (Rec: 12/11/22 12:20 [facility] [id number]) Physical Therapy Assessment Goals balance Financial Recording Clerk Goal (LTG) pt will be able to do SLS for 10 sec B LTG Duration 02/18/23 ROM Financial Recording Clerk Goal (LTG) Pt will have R Shoulder AROM equal to L shoulder in order to allow for donning/doffing bra, reaching overhead, etc. LTG Duration 02/18/23 strength Short Term Goal (STG) Pt will be indep w/HEP STG Duration 01/11/23 Financial Recording Clerk Goal (LTG) pt will score at least 3/5 on LPM and EFT and at least 4+/5 on BUE and BLE MMT to show improved stability in order to do her job and daily activities w/less pain. LTG Duration 02/18/23 work Nursing Home Goal (LTG) Pt will be able to carry and pull the objects she needs without inc pain. LTG Duration 02/18/23 Assessment Summary Assessment pt had improved hip flex and ER w/manual treatment today along w/improved ant eleavtion & post dep L pelvis. Physical Therapy Plan Next Visit Focus/Plan Next Note Type Treatment Note Next Visit Plan review:tband row, R UT stretch , AAROM flex cane, ER tband, DL core isometric, hip flexor stretch for HEP; manual to soft tissue R shoulder, AC & SC mobs & GH, hip on axis mobs & work into ant hip
--- NOTE | 2022-12-17 16:20 | PT.OTN ---
Current Diagnoses Other chronic pain (12/17/22) Pain in right shoulder (12/17/22) Pain in left thigh (12/17/22) Fibromyalgia (12/17/22) Difficulty in walking, not elsewhere classified (12/17/22) Abnormal posture (12/17/22) Weakness (12/17/22) Physical Therapy Treatment Note PT-OP-A Visit Information Start: 11/26/22 09:54 Freq: Status: Active Protocol: Document 12/17/22 16:12 [facility] (Rec: 12/17/22 16:20 [facility] [id number]) Out-Patient Physical Therapy Visit Information Visit Information Visit Type Treatment Note Visit Number 5 Number of CREDIT PRODUCT ANALYST Visits 0 PT-OP-B Current Condition Start: 11/26/22 09:54 Freq: Status: Active Protocol: Document 11/26/22 09:54 [facility] (Rec: 11/26/22 10:36 [facility] [id number]) Current Condition History of Current Condition Onset Date 1-1.5 ear ago Current Complaints R shoulder pain & L hip and leg pain History of Current Condition Pt reports about 1-1.5 years ago, 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 She has fibromyalgia so she has travelling pain. The things she can't do when things are behind her. She has trouble carrying things up narrow hallways and w/pulling things. It wasn't a one time thing but more of a gradual thing. Her xray didn't show much, but MRI showed 5 things that were moderate. 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 The ortho gave a cortizone shot that gave 3-4 weeks and got a different shot in a different location and when that block wore off, she had extreme pain for 18 hours but it didn't help. She went to OT w/Vivian at [facility]. She has been seeing a naturopathic doctor and has been doing prolo and feels like that is helping her. She used to lose her power when she was reaching overhead but that is better. Her main concern in ROM. She is doing a lot of stretches from the OT. Pt woke up 2 weeks ago w/ really bad L hip pain and it is keeping her up and night and it is radiating down L lat and ant down through lower leg. Pt has head pressure when she bends over that lasts until she sits back up. Has been having sleep issues but did do a sleep study. Treatment Goals Patient/Caregiver Goals Wants to be able to IR behind back so she can put on a bra. PT-OP-C Subjective Start: 11/26/22 09:54 Freq: Status: Active Protocol: Document 12/17/22 16:12 [facility] (Rec: 12/17/22 16:20 [facility] [id number]) OP-PT Subjective Patient Comments Patient Comments Pt reports she feels like the session helped a lot. notes she has some soreness in R UT region of shoulder today. PT-OP-D Balance Start: 11/26/22 09:54 Freq: Status: Active Protocol: Document 11/26/22 09:54 [facility] (Rec: 11/26/22 10:36 [facility] [id number]) Balance Tests Single Limb Standing Single Limb- Right 5 sec Single Limb- Left 7 sec PT-OP-F Manual Assessment Start: 11/26/22 09:54 Freq: Status: Active Protocol: Document 11/26/22 09:54 [facility] (Rec: 11/26/22 10:36 [facility] [id number]) Manual Assessments Joint Mobility Assessment Joint Mobility Assessment equal greater troch and iliac crests B; sidebent to R, R shoulder lower than L, Humerus R is ant in glenoid PT-OP-G Mobility & Gait Start: 11/26/22 09:54 Freq: Status: Active Protocol: Document 11/26/22 09:54 [facility] (Rec: 11/26/22 10:36 [facility] [id number]) OP Gait Assessment Comments Gait Comments dec LUE swing, dec push off on LLE, excessive pelvis rotation PT-OP-J Posture/Palpation/Skin Start: 11/26/22 09:54 Freq: Status: Active Protocol: Document 11/26/22 09:54 [facility] (Rec: 11/26/22 10:36 [facility] [id number]) Posture Evaluation [facility] Postural Classification System [place] Postural Classifications Posterior/Posterior Elbow Flexion Test 1 Lumbar Protective Mechanism Left AP 0 Lumbar Protective Mechanism Right AP 0 Lumbar Protective Mechanism Left PA 4 Lumbar Protective Mechanism Right PA 1 PT-OP-K Range of Motion Start: 11/26/22 09:54 Freq: Status: Active Protocol: Document 11/26/22 09:54 [facility] (Rec: 11/26/22 10:36 [facility] [id number]) Shoulder Goniometric Range of Motion Shoulder Right Active Flexion 132 Extension 50 Abduction 162 External Rotation at 90 degrees 93 Abduction External Rotation at 0 degrees Abduction 50 Internal Rotation Behind Back (text) T12 Comments pain abd coming down and pt went into flex when abd Left Active Flexion 156 Extension 70 Abduction 180 External Rotation at 90 degrees 95 Abduction External Rotation at 0 degrees Abduction 52 Internal Rotation Behind Back (text) T6 PT-OP-L Special Tests Start: 11/26/22 09:54 Freq: Status: Active Protocol: Document 11/26/22 09:54 [facility] (Rec: 11/26/22 10:36 [facility] [id number]) Special Tests Shoulder Special Tests Garcia Michael Impingement Test Results neg Neer Impingement Test Results neg Empty Can Test Results neg Hip Special Tests Bev's Test Results mild tightness L Slump Test Results neg B Straight Leg Raise Test Results positive limited B Neural Special Tests- Upper Body Median Nerve Tension Test Results positve R tension Ulnar Nerve Tension Test Results neg Radial Nerve Tension Test Results neg PT-OP-M Strength Start: 11/26/22 09:54 Freq: Status: Active Protocol: Document 11/26/22 09:54 [facility] (Rec: 11/26/22 10:36 [facility] [id number]) Shoulder Strength Shoulder Manual Muscle Testing Right Flexion 3+ Fair+ Extension 3+ Fair+ Abduction (C5) 4- Good- External Rotation 3+ Fair+ Internal Rotation 3+ Fair+ Left Flexion 4 Good Extension 5 Normal Abduction (C5) 4+ Good+ External Rotation 4+ Good+ Internal Rotation 4+ Good+ Hip Strength Hip Manual Muscle Testing Right Flexion (L2) 3+ Fair+ Extension (S1) 4- Good- Abduction 4 Good Adduction 4 Good External Rotation 3+ Fair+ Internal Rotation 5 Normal Left Flexion (L2) 3+ Fair+ Extension (S1) 3+ Fair+ Abduction 4- Good- Adduction 3+ Fair+ External Rotation 3+ Fair+ Internal Rotation 3+ Fair+ Knee Strength Knee Manual Muscle Testing Right Flexion (S2) 5 Normal Extension (L3) 5 Normal Left Flexion (S2) 4 Good Extension (L3) 4 Good Ankle/Foot Strength Ankle and Foot Manual Muscle Testing Right Dorsiflexion (L4) 5 Normal Plantarflexion (S1) 5 Normal Comments cues to keep knee straight Left Dorsiflexion (L4) 5 Normal Plantarflexion (S1) 5 Normal Comments 20 heel raises B ; B pain in post thigh PT-OP-Q Treatments Start: 11/26/22 09:54 Freq: Status: Active Protocol: Document 12/17/22 16:12 [facility] (Rec: 12/17/22 16:20 [facility] [id number]) Therapeutic Exercises Supine Exercises core Supine Exercise Name B hip flex iso Side bilateral Reps/Minutes 30 sec x2 Manual Therapy Treatment Soft Tissue Mobilization calf Body Location R Mobilization Type Myofascial Release,Rolling Intensity/Depth Moderate Superior Body Location scalenes, UT, LS, post sup serratus R FM Mobilization Type Rolling Intensity/Depth Moderate Body Position Sidelying Joint Mobilizations ankle Comments distraction calcaneus & talus lat glide calcaneus med glide talus AP talus FM AC Joint R ant FM Neuro Re-Education Treatment Other Activities PNF Details L pelvis Reps/Duration 8 min Comments ant elevation rhymtic initiation 2. ant elevation sustained hold progressed to w/LE pattern 3.ant elevation COI progressed to LE pattern progressed to w /dissociation of pelvis and hip progressed to together PT-OP-T Assessment and Plan Start: 11/26/22 09:54 Freq: Status: Active Protocol: Document 12/17/22 16:12 [facility] (Rec: 12/17/22 16:20 [facility] [id number]) Physical Therapy Assessment Goals balance Retirement Goal (LTG) pt will be able to do SLS for 10 sec B LTG Duration 02/18/23 ROM Jewel Inspector Goal (LTG) Pt will have R Shoulder AROM equal to L shoulder in order to allow for donning/doffing bra, reaching overhead, etc. LTG Duration 02/18/23 strength Short Term Goal (STG) Pt will be indep w/HEP STG Duration 01/11/23 Jewel Inspector Goal (LTG) pt will score at least 3/5 on LPM and EFT and at least 4+/5 on BUE and BLE MMT to show improved stability in order to do her job and daily activities w/less pain. LTG Duration 02/18/23 work Retirement Goal (LTG) Pt will be able to carry and pull the objects she needs without inc pain. LTG Duration 02/18/23 Assessment Summary Assessment Pt had improved knee bend ability after manual treamtent which will help with function of LLE. Improved post dep of R scap w/manual. Physical Therapy Plan Frequency and Duration Frequency of Treatment 2x/Week Duration of treatment (weeks) 12 Plan of Care Start Date 11/26/22 Plan of Care End Date 02/18/23 Next Visit Focus/Plan Next Note Type Treatment Note Next Visit Plan review:Matt flores UT stretch , AAROM flex cane, ER CASANDRA alonzo core isometric, hip flexor stretch for HEP; manual to soft tissue R shoulder, AC & SC mobs & GH, hip on axis mobs & work into ant hip
--- NOTE | 2022-12-19 18:21 | PT.OTN ---
Current Diagnoses Other chronic pain (12/19/22) Pain in right shoulder (12/19/22) Pain in left thigh (12/19/22) Fibromyalgia (12/19/22) Difficulty in walking, not elsewhere classified (12/19/22) Abnormal posture (12/19/22) Weakness (12/19/22) Physical Therapy Treatment Note PT-OP-A Visit Information Start: 11/26/22 09:54 Freq: Status: Active Protocol: Document 12/19/22 13:51 [facility] (Rec: 12/19/22 18:21 [facility] [id number]) Out-Patient Physical Therapy Visit Information Visit Information Visit Type Treatment Note Visit Start Time 13:52 Visit Stop Time 14:31 Total Visit Minutes 39 Visit Number 6 Number of PICKING TECH Visits 0 PT-OP-B Current Condition Start: 11/26/22 09:54 Freq: Status: Active Protocol: Document 11/26/22 09:54 [facility] (Rec: 11/26/22 10:36 [facility] [id number]) Current Condition History of Current Condition Onset Date 1-1.5 ear ago Current Complaints R shoulder pain & L hip and leg pain History of Current Condition Pt reports about 1-1.5 years ago, 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 She has fibromyalgia so she has travelling pain. The things she can't do when things are behind her. She has trouble carrying things up narrow hallways and w/pulling things. It wasn't a one time thing but more of a gradual thing. Her xray didn't show much, but MRI showed 5 things that were moderate. 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 The ortho gave a cortizone shot that gave 3-4 weeks and got a different shot in a different location and when that block wore off, she had extreme pain for 18 hours but it didn't help. She went to OT w/Vivian at [facility]. She has been seeing a naturopathic doctor and has been doing prolo and feels like that is helping her. She used to lose her power when she was reaching overhead but that is better. Her main concern in ROM. She is doing a lot of stretches from the OT. Pt woke up 2 weeks ago w/ really bad L hip pain and it is keeping her up and night and it is radiating down L lat and ant down through lower leg. Pt has head pressure when she bends over that lasts until she sits back up. Has been having sleep issues but did do a sleep study. Treatment Goals Patient/Caregiver Goals Wants to be able to IR behind back so she can put on a bra. PT-OP-C Subjective Start: 11/26/22 09:54 Freq: Status: Active Protocol: Document 12/19/22 13:51 [facility] (Rec: 12/19/22 18:21 [facility] [id number]) OP-PT Subjective Patient Comments Patient Comments Pt reports she is still having some of the same pain in the leg. She does feel overall everything has helped. she is still feeling some tension in R UT region also. PT-OP-D Balance Start: 11/26/22 09:54 Freq: Status: Active Protocol: Document 11/26/22 09:54 [facility] (Rec: 11/26/22 10:36 [facility] [id number]) Balance Tests Single Limb Standing Single Limb- Right 5 sec Single Limb- Left 7 sec PT-OP-F Manual Assessment Start: 11/26/22 09:54 Freq: Status: Active Protocol: Document 11/26/22 09:54 [facility] (Rec: 11/26/22 10:36 [facility] [id number]) Manual Assessments Joint Mobility Assessment Joint Mobility Assessment equal greater troch and iliac crests B; sidebent to R, R shoulder lower than L, Humerus R is ant in glenoid PT-OP-G Mobility & Gait Start: 11/26/22 09:54 Freq: Status: Active Protocol: Document 11/26/22 09:54 [facility] (Rec: 11/26/22 10:36 [facility] [id number]) OP Gait Assessment Comments Gait Comments dec LUE swing, dec push off on LLE, excessive pelvis rotation PT-OP-J Posture/Palpation/Skin Start: 11/26/22 09:54 Freq: Status: Active Protocol: Document 11/26/22 09:54 [facility] (Rec: 11/26/22 10:36 [facility] [id number]) Posture Evaluation [facility] Postural Classification System [facility] Postural Classifications Posterior/Posterior Elbow Flexion Test 1 Lumbar Protective Mechanism Left AP 0 Lumbar Protective Mechanism Right AP 0 Lumbar Protective Mechanism Left PA 4 Lumbar Protective Mechanism Right PA 1 PT-OP-K Range of Motion Start: 11/26/22 09:54 Freq: Status: Active Protocol: Document 11/26/22 09:54 [facility] (Rec: 11/26/22 10:36 [facility] [id number]) Shoulder Goniometric Range of Motion Shoulder Right Active Flexion 132 Extension 50 Abduction 162 External Rotation at 90 degrees 93 Abduction External Rotation at 0 degrees Abduction 50 Internal Rotation Behind Back (text) T12 Comments pain abd coming down and pt went into flex when abd Left Active Flexion 156 Extension 70 Abduction 180 External Rotation at 90 degrees 95 Abduction External Rotation at 0 degrees Abduction 52 Internal Rotation Behind Back (text) T6 PT-OP-L Special Tests Start: 11/26/22 09:54 Freq: Status: Active Protocol: Document 11/26/22 09:54 [facility] (Rec: 11/26/22 10:36 [facility] [id number]) Special Tests Shoulder Special Tests Garcia Michael Impingement Test Results neg Neer Impingement Test Results neg Empty Can Test Results neg Hip Special Tests Bev's Test Results mild tightness L Slump Test Results neg B Straight Leg Raise Test Results positive limited B Neural Special Tests- Upper Body Median Nerve Tension Test Results positve R tension Ulnar Nerve Tension Test Results neg Radial Nerve Tension Test Results neg PT-OP-M Strength Start: 11/26/22 09:54 Freq: Status: Active Protocol: Document 11/26/22 09:54 [facility] (Rec: 11/26/22 10:36 [facility] [id number]) Shoulder Strength Shoulder Manual Muscle Testing Right Flexion 3+ Fair+ Extension 3+ Fair+ Abduction (C5) 4- Good- External Rotation 3+ Fair+ Internal Rotation 3+ Fair+ Left Flexion 4 Good Extension 5 Normal Abduction (C5) 4+ Good+ External Rotation 4+ Good+ Internal Rotation 4+ Good+ Hip Strength Hip Manual Muscle Testing Right Flexion (L2) 3+ Fair+ Extension (S1) 4- Good- Abduction 4 Good Adduction 4 Good External Rotation 3+ Fair+ Internal Rotation 5 Normal Left Flexion (L2) 3+ Fair+ Extension (S1) 3+ Fair+ Abduction 4- Good- Adduction 3+ Fair+ External Rotation 3+ Fair+ Internal Rotation 3+ Fair+ Knee Strength Knee Manual Muscle Testing Right Flexion (S2) 5 Normal Extension (L3) 5 Normal Left Flexion (S2) 4 Good Extension (L3) 4 Good Ankle/Foot Strength Ankle and Foot Manual Muscle Testing Right Dorsiflexion (L4) 5 Normal Plantarflexion (S1) 5 Normal Comments cues to keep knee straight Left Dorsiflexion (L4) 5 Normal Plantarflexion (S1) 5 Normal Comments 20 heel raises B ; B pain in post thigh PT-OP-Q Treatments Start: 11/26/22 09:54 Freq: Status: Active Protocol: Document 12/19/22 13:51 [facility] (Rec: 12/19/22 18:21 [facility] [id number]) Manual Therapy Treatment Joint Mobilizations ankle Comments distraction calcaneus & talus B lat glide calcaneus R med glide talus R AP talus B cuneiforms gapping L cuboid lat L navicular med L FM innominate Joint L flex FM hip Joint L inf FM PT-OP-T Assessment and Plan Start: 11/26/22 09:54 Freq: Status: Active Protocol: Document 12/19/22 13:51 [facility] (Rec: 12/19/22 18:21 [facility] [id number]) Physical Therapy Assessment Goals balance [facility] Goal (LTG) pt will be able to do SLS for 10 sec B LTG Duration 02/18/23 ROM [facility] Goal (LTG) Pt will have R Shoulder AROM equal to L shoulder in order to allow for donning/doffing bra, reaching overhead, etc. LTG Duration 02/18/23 strength Short Term Goal (STG) Pt will be indep w/HEP STG Duration 01/11/23 [facility] Goal (LTG) pt will score at least 3/5 on LPM and EFT and at least 4+/5 on BUE and BLE MMT to show improved stability in order to do her job and daily activities w/less pain. 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 LTG Duration 02/18/23 Assessment Summary Assessment Pt had improved foot and ankle mobility w/manuala d improved L hip flexion w/treatment. Physical Therapy Plan Frequency and Duration Frequency of Treatment 2x/Week Duration of treatment (weeks) 12 Plan of Care Start Date 11/26/22 Plan of Care End Date 02/18/23 Next Visit Focus/Plan Next Note Type Treatment Note Next Visit Plan review:Matt flores UT stretch , AAROM flex cane, ER cheri DL core isometric, hip flexor stretch for HEP; manual to soft tissue R shoulder, AC & SC mobs & GH, hip on axis mobs & work into ant hip
--- NOTE | 2022-12-24 16:40 | PT.OTN ---
Current Diagnoses Other chronic pain (12/24/22) Pain in right shoulder (12/24/22) Pain in left thigh (12/24/22) Fibromyalgia (12/24/22) Difficulty in walking, not elsewhere classified (12/24/22) Abnormal posture (12/24/22) Weakness (12/24/22) Physical Therapy Treatment Note PT-OP-A Visit Information Start: 11/26/22 09:54 Freq: Status: Active Protocol: Document 12/24/22 14:22 [facility] (Rec: 12/24/22 16:40 [facility] [id number]) Out-Patient Physical Therapy Visit Information Visit Information Visit Type Treatment Note Visit Start Time 14:36 Visit Stop Time 15:15 Total Visit Minutes 39 Visit Number 7 Number of NETWORK SECURITY OFFICER Visits 0 PT-OP-B Current Condition Start: 11/26/22 09:54 Freq: Status: Active Protocol: Document 11/26/22 09:54 [facility] (Rec: 11/26/22 10:36 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 She has fibromyalgia so she has travelling pain. The things she can't do when things are behind her. She has trouble carrying things up narrow hallways and w/pulling things. It wasn't a one time thing but more of a gradual thing. Her xray didn't show much, but MRI showed 5 things that were moderate. 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 The ortho gave a cortizone shot that gave 3-4 weeks and got a different shot in a different location and when that block wore off, she had extreme pain for 18 hours but it didn't help. She went to OT w/Vivian at [facility]. She has been seeing a naturopathic doctor and has been doing prolo and feels like that is helping her. She used to lose her power when she was reaching overhead but that is better. Her main concern in ROM. She is doing a lot of stretches from the OT. Pt woke up 2 weeks ago w/ really bad L hip pain and it is keeping her up and night and it is radiating down L lat and ant down through lower leg. Pt has head pressure when she bends over that lasts until she sits back up. Has been having sleep issues but did do a sleep study. Treatment Goals Patient/Caregiver Goals Wants to be able to IR behind back so she can put on a bra. PT-OP-C Subjective Start: 11/26/22 09:54 Freq: Status: Active Protocol: Document 12/24/22 14:22 [facility] (Rec: 12/24/22 16:40 [facility] [id number]) OP-PT Subjective Patient Comments Patient Comments Pt reports biggested pain has been R rosen pain and it is senative to the touch since last week. L rosen is a little sore but not as bad. Feels like the [employer] work has helped . L leg pain is better overall PT-OP-D Balance Start: 11/26/22 09:54 Freq: Status: Active Protocol: Document 11/26/22 09:54 [facility] (Rec: 11/26/22 10:36 [facility] [id number]) Balance Tests Single Limb Standing Single Limb- Right 5 sec Single Limb- Left 7 sec PT-OP-F Manual Assessment Start: 11/26/22 09:54 Freq: Status: Active Protocol: Document 11/26/22 09:54 [facility] (Rec: 11/26/22 10:36 [facility] [id number]) Manual Assessments Joint Mobility Assessment Joint Mobility Assessment equal greater troch and iliac crests B; sidebent to R, R shoulder lower than L, Humerus R is ant in glenoid PT-OP-G Mobility & Gait Start: 11/26/22 09:54 Freq: Status: Active Protocol: Document 11/26/22 09:54 [facility] (Rec: 11/26/22 10:36 [facility] [id number]) OP Gait Assessment Comments Gait Comments dec LUE swing, dec push off on LLE, excessive pelvis rotation PT-OP-J Posture/Palpation/Skin Start: 11/26/22 09:54 Freq: Status: Active Protocol: Document 11/26/22 09:54 [facility] (Rec: 11/26/22 10:36 [facility] [id number]) Posture Evaluation [facility] Postural Classification System [facility] Postural Classifications Posterior/Posterior Elbow Flexion Test 1 Lumbar Protective Mechanism Left AP 0 Lumbar Protective Mechanism Right AP 0 Lumbar Protective Mechanism Left PA 4 Lumbar Protective Mechanism Right PA 1 PT-OP-K Range of Motion Start: 11/26/22 09:54 Freq: Status: Active Protocol: Document 11/26/22 09:54 [facility] (Rec: 11/26/22 10:36 [facility] [id number]) Shoulder Goniometric Range of Motion Shoulder Right Active Flexion 132 Extension 50 Abduction 162 External Rotation at 90 degrees 93 Abduction External Rotation at 0 degrees Abduction 50 Internal Rotation Behind Back (text) T12 Comments pain abd coming down and pt went into flex when abd Left Active Flexion 156 Extension 70 Abduction 180 External Rotation at 90 degrees 95 Abduction External Rotation at 0 degrees Abduction 52 Internal Rotation Behind Back (text) T6 PT-OP-L Special Tests Start: 11/26/22 09:54 Freq: Status: Active Protocol: Document 11/26/22 09:54 [facility] (Rec: 11/26/22 10:36 [facility] [id number]) Special Tests Shoulder Special Tests Garcia Michael Impingement Test Results neg Neer Impingement Test Results neg Empty Can Test Results neg Hip Special Tests Bev's Test Results mild tightness L Slump Test Results neg B Straight Leg Raise Test Results positive limited B Neural Special Tests- Upper Body Median Nerve Tension Test Results positve R tension Ulnar Nerve Tension Test Results neg Radial Nerve Tension Test Results neg PT-OP-M Strength Start: 11/26/22 09:54 Freq: Status: Active Protocol: Document 11/26/22 09:54 [facility] (Rec: 11/26/22 10:36 [facility] [id number]) Shoulder Strength Shoulder Manual Muscle Testing Right Flexion 3+ Fair+ Extension 3+ Fair+ Abduction (C5) 4- Good- External Rotation 3+ Fair+ Internal Rotation 3+ Fair+ Left Flexion 4 Good Extension 5 Normal Abduction (C5) 4+ Good+ External Rotation 4+ Good+ Internal Rotation 4+ Good+ Hip Strength Hip Manual Muscle Testing Right Flexion (L2) 3+ Fair+ Extension (S1) 4- Good- Abduction 4 Good Adduction 4 Good External Rotation 3+ Fair+ Internal Rotation 5 Normal Left Flexion (L2) 3+ Fair+ Extension (S1) 3+ Fair+ Abduction 4- Good- Adduction 3+ Fair+ External Rotation 3+ Fair+ Internal Rotation 3+ Fair+ Knee Strength Knee Manual Muscle Testing Right Flexion (S2) 5 Normal Extension (L3) 5 Normal Left Flexion (S2) 4 Good Extension (L3) 4 Good Ankle/Foot Strength Ankle and Foot Manual Muscle Testing Right Dorsiflexion (L4) 5 Normal Plantarflexion (S1) 5 Normal Comments cues to keep knee straight Left Dorsiflexion (L4) 5 Normal Plantarflexion (S1) 5 Normal Comments 20 heel raises B ; B pain in post thigh PT-OP-Q Treatments Start: 11/26/22 09:54 Freq: Status: Active Protocol: Document 12/24/22 14:22 [facility] (Rec: 12/24/22 16:40 [facility] [id number]) Therapeutic Exercises Supine Exercises core Supine Exercise Name B hip flex iso Side bilateral Reps/Minutes 30 sec flex Supine Exercise Name AAROM R Equipment Used cane Reps/Minutes 5 Comments press then flex Sitting Exercises UT stretch Side bilateral Reps/Minutes 30 sec Standing Exercises hip flexor stretch Side bilateral Reps/Minutes 30 sec ER Side bilateral Equipment Used L1 Reps/Minutes 15 rows Side bilateral Equipment Used L1 Reps/Minutes 15 Manual Therapy Treatment Soft Tissue Mobilization pec Body Location R Mobilization Type Rolling,Strumming,Sustained Pressure Intensity/Depth Moderate tib ant Body Location R FM Mobilization Type Rolling Intensity/Depth Moderate Joint Mobilizations GH Joint R post & distraction w/manual facilitation after ankle Comments R calc and talus distraction FM R AP talus FM and percussion PT-OP-T Assessment and Plan Start: 11/26/22 09:54 Freq: Status: Active Protocol: Document 12/24/22 14:22 [facility] (Rec: 12/24/22 16:40 [facility] [id number]) Physical Therapy Assessment Goals balance Private Inquiry Agent Goal (LTG) pt will be able to do SLS for 10 sec B LTG Duration 02/18/23 ROM [employer] Goal (LTG) Pt will have R Shoulder AROM equal to L shoulder in order to allow for donning/doffing bra, reaching overhead, etc. LTG Duration 02/18/23 strength Short Term Goal (STG) Pt will be indep w/HEP STG Duration 01/11/23 Snf Goal (LTG) pt will score at least 3/5 on LPM and EFT and at least 4+/5 on BUE and BLE MMT to show improved stability in order to do her job and daily activities w/less pain. LTG Duration 02/18/23 work Private Inquiry Agent Goal (LTG) Pt will be able to carry and pull the objects she needs without inc pain. LTG Duration 02/18/23 Assessment Summary Assessment Pt had improved R shoulder 90/ 90 ER and flex ROM with manual treatment. She requried min cues w/exercises and did well with them. Physical Therapy Plan Frequency and Duration Frequency of Treatment 2x/Week Duration of treatment (weeks) 12 Plan of Care Start Date 11/26/22 Plan of Care End Date 02/18/23 Next Visit Focus/Plan Next Note Type Treatment Note Next Visit Plan manual to soft tissue R shoulder, AC & SC mobs & GH, cont to work on Le mobility
--- NOTE | 2022-12-26 12:10 | PT.OTN ---
Current Diagnoses Other chronic pain (12/26/22) Pain in right shoulder (12/26/22) Pain in left thigh (12/26/22) Fibromyalgia (12/26/22) Difficulty in walking, not elsewhere classified (12/26/22) Abnormal posture (12/26/22) Weakness (12/26/22) Physical Therapy Treatment Note PT-OP-A Visit Information Start: 11/26/22 09:54 Freq: Status: Active Protocol: Document 12/26/22 12:07 [facility] (Rec: 12/26/22 12:10 [facility] [id number]) Out-Patient Physical Therapy Visit Information Visit Information Visit Type Treatment Note Visit Start Time 11:19 Visit Stop Time 12:02 Total Visit Minutes 43 Visit Number 8 Number of GRANITE INSTALLER Visits 0 PT-OP-B Current Condition Start: 11/26/22 09:54 Freq: Status: Active Protocol: Document 11/26/22 09:54 [facility] (Rec: 11/26/22 10:36 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 She has fibromyalgia so she has travelling pain. The things she can't do when things are behind her. She has trouble carrying things up narrow hallways and w/pulling things. It wasn't a one time thing but more of a gradual thing. Her xray didn't show much, but MRI showed 5 things that were moderate. 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 The ortho gave a cortizone shot that gave 3-4 weeks and got a different shot in a different location and when that block wore off, she had extreme pain for 18 hours but it didn't help. She went to OT w/Vivian at [facility]. She has been seeing a naturopathic doctor and has been doing prolo and feels like that is helping her. She used to lose her power when she was reaching overhead but that is better. Her main concern in ROM. She is doing a lot of stretches from the OT. Pt woke up 2 weeks ago w/ really bad L hip pain and it is keeping her up and night and it is radiating down L lat and ant down through lower leg. Pt has head pressure when she bends over that lasts until she sits back up. Has been having sleep issues but did do a sleep study. Treatment Goals Patient/Caregiver Goals Wants to be able to IR behind back so she can put on a bra. PT-OP-C Subjective Start: 11/26/22 09:54 Freq: Status: Active Protocol: Document 12/26/22 12:07 [facility] (Rec: 12/26/22 12:10 [facility] [id number]) OP-PT Subjective Patient Comments Patient Comments Pt reports she feels like the work is helping. Her ankles feela little unstable PT-OP-D Balance Start: 11/26/22 09:54 Freq: Status: Active Protocol: Document 11/26/22 09:54 [facility] (Rec: 11/26/22 10:36 [facility] [id number]) Balance Tests Single Limb Standing Single Limb- Right 5 sec Single Limb- Left 7 sec PT-OP-F Manual Assessment Start: 11/26/22 09:54 Freq: Status: Active Protocol: Document 11/26/22 09:54 [facility] (Rec: 11/26/22 10:36 [facility] [id number]) Manual Assessments Joint Mobility Assessment Joint Mobility Assessment equal greater troch and iliac crests B; sidebent to R, R shoulder lower than L, Humerus R is ant in glenoid PT-OP-G Mobility & Gait Start: 11/26/22 09:54 Freq: Status: Active Protocol: Document 11/26/22 09:54 [facility] (Rec: 11/26/22 10:36 [facility] [id number]) OP Gait Assessment Comments Gait Comments dec LUE swing, dec push off on LLE, excessive pelvis rotation PT-OP-J Posture/Palpation/Skin Start: 11/26/22 09:54 Freq: Status: Active Protocol: Document 11/26/22 09:54 [facility] (Rec: 11/26/22 10:36 [facility] [id number]) Posture Evaluation [facility] Postural Classification System [place] Postural Classifications Posterior/Posterior Elbow Flexion Test 1 Lumbar Protective Mechanism Left AP 0 Lumbar Protective Mechanism Right AP 0 Lumbar Protective Mechanism Left PA 4 Lumbar Protective Mechanism Right PA 1 PT-OP-K Range of Motion Start: 11/26/22 09:54 Freq: Status: Active Protocol: Document 11/26/22 09:54 [facility] (Rec: 11/26/22 10:36 [facility] [id number]) Shoulder Goniometric Range of Motion Shoulder Right Active Flexion 132 Extension 50 Abduction 162 External Rotation at 90 degrees 93 Abduction External Rotation at 0 degrees Abduction 50 Internal Rotation Behind Back (text) T12 Comments pain abd coming down and pt went into flex when abd Left Active Flexion 156 Extension 70 Abduction 180 External Rotation at 90 degrees 95 Abduction External Rotation at 0 degrees Abduction 52 Internal Rotation Behind Back (text) T6 PT-OP-L Special Tests Start: 11/26/22 09:54 Freq: Status: Active Protocol: Document 11/26/22 09:54 [facility] (Rec: 11/26/22 10:36 [facility] [id number]) Special Tests Shoulder Special Tests Garcia Michael Impingement Test Results neg Neer Impingement Test Results neg Empty Can Test Results neg Hip Special Tests Bev's Test Results mild tightness L Slump Test Results neg B Straight Leg Raise Test Results positive limited B Neural Special Tests- Upper Body Median Nerve Tension Test Results positve R tension Ulnar Nerve Tension Test Results neg Radial Nerve Tension Test Results neg PT-OP-M Strength Start: 11/26/22 09:54 Freq: Status: Active Protocol: Document 11/26/22 09:54 [facility] (Rec: 11/26/22 10:36 [facility] [id number]) Shoulder Strength Shoulder Manual Muscle Testing Right Flexion 3+ Fair+ Extension 3+ Fair+ Abduction (C5) 4- Good- External Rotation 3+ Fair+ Internal Rotation 3+ Fair+ Left Flexion 4 Good Extension 5 Normal Abduction (C5) 4+ Good+ External Rotation 4+ Good+ Internal Rotation 4+ Good+ Hip Strength Hip Manual Muscle Testing Right Flexion (L2) 3+ Fair+ Extension (S1) 4- Good- Abduction 4 Good Adduction 4 Good External Rotation 3+ Fair+ Internal Rotation 5 Normal Left Flexion (L2) 3+ Fair+ Extension (S1) 3+ Fair+ Abduction 4- Good- Adduction 3+ Fair+ External Rotation 3+ Fair+ Internal Rotation 3+ Fair+ Knee Strength Knee Manual Muscle Testing Right Flexion (S2) 5 Normal Extension (L3) 5 Normal Left Flexion (S2) 4 Good Extension (L3) 4 Good Ankle/Foot Strength Ankle and Foot Manual Muscle Testing Right Dorsiflexion (L4) 5 Normal Plantarflexion (S1) 5 Normal Comments cues to keep knee straight Left Dorsiflexion (L4) 5 Normal Plantarflexion (S1) 5 Normal Comments 20 heel raises B ; B pain in post thigh PT-OP-Q Treatments Start: 11/26/22 09:54 Freq: Status: Active Protocol: Document 12/26/22 12:07 [facility] (Rec: 12/26/22 12:10 [facility] [id number]) Therapeutic Exercises Standing Exercises arch raises Standing Exercise Name progression from DL to SL w/ wall Side bilateral Reps/Minutes 5 min Manual Therapy Treatment Soft Tissue Mobilization inf Body Location R teres, supraspinauts Mobilization Type Sustained Pressure,Other Intensity/Depth Moderate calf Body Location R Mobilization Type Myofascial Release,Rolling Intensity/Depth Moderate Comments med calf Joint Mobilizations GH Joint R Direction post glide & translation, distraction & lat gap FM Comments manual facilitation at endr anges ankle Comments R AP talus and tib w/percusion in stanidng PT-OP-T Assessment and Plan Start: 11/26/22 09:54 Freq: Status: Active Protocol: Document 12/26/22 12:07 [facility] (Rec: 12/26/22 12:10 [facility] [id number]) Physical Therapy Assessment Goals balance Intermediate Goal (LTG) pt will be able to do SLS for 10 sec B LTG Duration 02/18/23 ROM Information Systems Security Manager Goal (LTG) Pt will have R Shoulder AROM equal to L shoulder in order to allow for donning/doffing bra, reaching overhead, etc. LTG Duration 02/18/23 strength Short Term Goal (STG) Pt will be indep w/HEP STG Duration 01/11/23 Intermediate Goal (LTG) pt will score at least 3/5 on LPM and EFT and at least 4+/5 on BUE and BLE MMT to show improved stability in order to do her job and daily activities w/less pain. LTG Duration 02/18/23 work Intermediate Goal (LTG) Pt will be able to carry and pull the objects she needs without inc pain. LTG Duration 02/18/23 Assessment Summary Assessment Pt had improved flex and Hadd w/manual treatment along w/ improved R DF. She did initially struggle w/arch lift but got it by the end Physical Therapy Plan Frequency and Duration Frequency of Treatment 2x/Week Duration of treatment (weeks) 12 Plan of Care Start Date 11/26/22 Plan of Care End Date 02/18/23 Next Visit Focus/Plan Next Note Type Treatment Note Next Visit Plan review arch lift, manual to soft tissue R shoulder, AC & SC mobs & GH, cont to work on Le mobility
--- NOTE | 2022-12-30 12:11 | PT.OTN ---
Current Diagnoses Other chronic pain (12/30/22) Pain in right shoulder (12/30/22) Pain in left thigh (12/30/22) Fibromyalgia (12/30/22) Difficulty in walking, not elsewhere classified (12/30/22) Abnormal posture (12/30/22) Weakness (12/30/22) Physical Therapy Treatment Note PT-OP-A Visit Information Start: 11/26/22 09:54 Freq: Status: Active Protocol: Document 12/30/22 11:22 [facility] (Rec: 12/30/22 12:11 [facility] [id number]) Out-Patient Physical Therapy Visit Information Visit Information Visit Type Treatment Note Visit Start Time 11:22 Visit Stop Time 12:02 Total Visit Minutes 40 Visit Number 9 Number of PAINTER ROUGH Visits 0 PT-OP-B Current Condition Start: 11/26/22 09:54 Freq: Status: Active Protocol: Document 11/26/22 09:54 [facility] (Rec: 11/26/22 10:36 [facility] [id number]) Current Condition History of Current Condition Onset Date 1-1.5 ear ago Current Complaints R shoulder pain & L hip and leg pain History of Current Condition Pt reports about 1-1.5 years ago, 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 She has fibromyalgia so she has travelling pain. The things she can't do when things are behind her. She has trouble carrying things up narrow hallways and w/pulling things. It wasn't a one time thing but more of a gradual thing. Her xray didn't show much, but MRI showed 5 things that were moderate. 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 The ortho gave a cortizone shot that gave 3-4 weeks and got a different shot in a different location and when that block wore off, she had extreme pain for 18 hours but it didn't help. She went to OT w/Vivian at [facility]. She has been seeing a naturopathic doctor and has been doing prolo and feels like that is helping her. She used to lose her power when she was reaching overhead but that is better. Her main concern in ROM. She is doing a lot of stretches from the OT. Pt woke up 2 weeks ago w/ really bad L hip pain and it is keeping her up and night and it is radiating down L lat and ant down through lower leg. Pt has head pressure when she bends over that lasts until she sits back up. Has been having sleep issues but did do a sleep study. Treatment Goals Patient/Caregiver Goals Wants to be able to IR behind back so she can put on a bra. PT-OP-C Subjective Start: 11/26/22 09:54 Freq: Status: Active Protocol: Document 12/30/22 11:22 [facility] (Rec: 12/30/22 12:11 [facility] [id number]) OP-PT Subjective Patient Comments Patient Comments Pt reprots still tight in shins and up into thighs. She has been having less pain reaching to shut her car. Patient Reported Progress Improving PT-OP-D Balance Start: 11/26/22 09:54 Freq: Status: Active Protocol: Document 11/26/22 09:54 [facility] (Rec: 11/26/22 10:36 [facility] [id number]) Balance Tests Single Limb Standing Single Limb- Right 5 sec Single Limb- Left 7 sec PT-OP-F Manual Assessment Start: 11/26/22 09:54 Freq: Status: Active Protocol: Document 11/26/22 09:54 [facility] (Rec: 11/26/22 10:36 [facility] [id number]) Manual Assessments Joint Mobility Assessment Joint Mobility Assessment equal greater troch and iliac crests B; sidebent to R, R shoulder lower than L, Humerus R is ant in glenoid PT-OP-G Mobility & Gait Start: 11/26/22 09:54 Freq: Status: Active Protocol: Document 11/26/22 09:54 [facility] (Rec: 11/26/22 10:36 [facility] [id number]) OP Gait Assessment Comments Gait Comments dec LUE swing, dec push off on LLE, excessive pelvis rotation PT-OP-J Posture/Palpation/Skin Start: 11/26/22 09:54 Freq: Status: Active Protocol: Document 11/26/22 09:54 [facility] (Rec: 11/26/22 10:36 [facility] [id number]) Posture Evaluation [facility] Postural Classification System [facility] Postural Classifications Posterior/Posterior Elbow Flexion Test 1 Lumbar Protective Mechanism Left AP 0 Lumbar Protective Mechanism Right AP 0 Lumbar Protective Mechanism Left PA 4 Lumbar Protective Mechanism Right PA 1 PT-OP-K Range of Motion Start: 11/26/22 09:54 Freq: Status: Active Protocol: Document 11/26/22 09:54 [facility] (Rec: 11/26/22 10:36 [facility] [id number]) Shoulder Goniometric Range of Motion Shoulder Right Active Flexion 132 Extension 50 Abduction 162 External Rotation at 90 degrees 93 Abduction External Rotation at 0 degrees Abduction 50 Internal Rotation Behind Back (text) T12 Comments pain abd coming down and pt went into flex when abd Left Active Flexion 156 Extension 70 Abduction 180 External Rotation at 90 degrees 95 Abduction External Rotation at 0 degrees Abduction 52 Internal Rotation Behind Back (text) T6 PT-OP-L Special Tests Start: 11/26/22 09:54 Freq: Status: Active Protocol: Document 11/26/22 09:54 [facility] (Rec: 11/26/22 10:36 [facility] [id number]) Special Tests Shoulder Special Tests Garcia Michael Impingement Test Results neg Neer Impingement Test Results neg Empty Can Test Results neg Hip Special Tests Bev's Test Results mild tightness L Slump Test Results neg B Straight Leg Raise Test Results positive limited B Neural Special Tests- Upper Body Median Nerve Tension Test Results positve R tension Ulnar Nerve Tension Test Results neg Radial Nerve Tension Test Results neg PT-OP-M Strength Start: 11/26/22 09:54 Freq: Status: Active Protocol: Document 11/26/22 09:54 [facility] (Rec: 11/26/22 10:36 [facility] [id number]) Shoulder Strength Shoulder Manual Muscle Testing Right Flexion 3+ Fair+ Extension 3+ Fair+ Abduction (C5) 4- Good- External Rotation 3+ Fair+ Internal Rotation 3+ Fair+ Left Flexion 4 Good Extension 5 Normal Abduction (C5) 4+ Good+ External Rotation 4+ Good+ Internal Rotation 4+ Good+ Hip Strength Hip Manual Muscle Testing Right Flexion (L2) 3+ Fair+ Extension (S1) 4- Good- Abduction 4 Good Adduction 4 Good External Rotation 3+ Fair+ Internal Rotation 5 Normal Left Flexion (L2) 3+ Fair+ Extension (S1) 3+ Fair+ Abduction 4- Good- Adduction 3+ Fair+ External Rotation 3+ Fair+ Internal Rotation 3+ Fair+ Knee Strength Knee Manual Muscle Testing Right Flexion (S2) 5 Normal Extension (L3) 5 Normal Left Flexion (S2) 4 Good Extension (L3) 4 Good Ankle/Foot Strength Ankle and Foot Manual Muscle Testing Right Dorsiflexion (L4) 5 Normal Plantarflexion (S1) 5 Normal Comments cues to keep knee straight Left Dorsiflexion (L4) 5 Normal Plantarflexion (S1) 5 Normal Comments 20 heel raises B ; B pain in post thigh PT-OP-Q Treatments Start: 11/26/22 09:54 Freq: Status: Active Protocol: Document 12/30/22 11:22 [facility] (Rec: 12/30/22 12:11 [facility] [id number]) Manual Therapy Treatment Soft Tissue Mobilization inf Body Location R lat & rhomobids post along scap border Mobilization Type Sustained Pressure,Other Intensity/Depth Moderate Body Position Sidelying Comments plunger & manual Superior Body Location scalenes, UT, LS, post sup serratus R FM Mobilization Type Rolling Intensity/Depth Moderate Body Position Sidelying Comments w/post dep FM Joint Mobilizations ribs Comments R inf 2-3 FM L SB glide Ribs 7-& 8 & rib 5 FM innominate Joint L AP seated FM AC Joint R ant FM PT-OP-T Assessment and Plan Start: 11/26/22 09:54 Freq: Status: Active Protocol: Document 12/30/22 11:22 [facility] (Rec: 12/30/22 12:11 [facility] [id number]) Physical Therapy Assessment Goals balance Residential Goal (LTG) pt will be able to do SLS for 10 sec B LTG Duration 02/18/23 ROM Buyer Agent Goal (LTG) Pt will have R Shoulder AROM equal to L shoulder in order to allow for donning/doffing bra, reaching overhead, etc. LTG Duration 02/18/23 strength Short Term Goal (STG) Pt will be indep w/HEP STG Duration 01/11/23 Residential Goal (LTG) pt will score at least 3/5 on LPM and EFT and at least 4+/5 on BUE and BLE MMT to show improved stability in order to do her job and daily activities w/less pain. LTG Duration 02/18/23 work Residential Goal (LTG) Pt will be able to carry and pull the objects she needs without inc pain. LTG Duration 02/18/23 Assessment Summary Assessment Pt had imrpoved R trunk rotationw /manual tratment w/ less pain and improved ability for scap to go into post dep w/manual. pt reports much improvement in movement after manual. Physical Therapy Plan Frequency and Duration Frequency of Treatment 2x/Week Duration of treatment (weeks) 12 Plan of Care Start Date 11/26/22 Plan of Care End Date 02/18/23 Next Visit Focus/Plan Next Note Type Treatment Note Next Visit Plan review arch lift, manual to soft tissue R shoulder, AC & SC mobs & GH, cont to work on Le mobility
--- NOTE | 2023-01-01 11:24 | PT.OTN ---
Current Diagnoses Other chronic pain (01/01/23) Pain in right shoulder (01/01/23) Pain in left thigh (01/01/23) Fibromyalgia (01/01/23) Difficulty in walking, not elsewhere classified (01/01/23) Abnormal posture (01/01/23) Weakness (01/01/23) Physical Therapy Treatment Note PT-OP-A Visit Information Start: 11/26/22 09:54 Freq: Status: Active Protocol: Document 01/01/23 11:21 [facility] (Rec: 01/01/23 11:24 [facility] [id number]) Out-Patient Physical Therapy Visit Information Visit Information Visit Type Treatment Note Visit Start Time 10:37 Visit Stop Time 11:17 Total Visit Minutes 40 Visit Number 10 Number of BUILDING DRAFTING OFFICER Visits 0 PT-OP-B Current Condition Start: 11/26/22 09:54 Freq: Status: Active Protocol: Document 11/26/22 09:54 [facility] (Rec: 11/26/22 10:36 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 She has fibromyalgia so she has travelling pain. The things she can't do when things are behind her. She has trouble carrying things up narrow hallways and w/pulling things. It wasn't a one time thing but more of a gradual thing. Her xray didn't show much, but MRI showed 5 things that were moderate. 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 The ortho gave a cortizone shot that gave 3-4 weeks and got a different shot in a different location and when that block wore off, she had extreme pain for 18 hours but it didn't help. She went to OT w/Vivian at [facility]. She has been seeing a naturopathic doctor and has been doing prolo and feels like that is helping her. She used to lose her power when she was reaching overhead but that is better. Her main concern in ROM. She is doing a lot of stretches from the OT. Pt woke up 2 weeks ago w/ really bad L hip pain and it is keeping her up and night and it is radiating down L lat and ant down through lower leg. Pt has head pressure when she bends over that lasts until she sits back up. Has been having sleep issues but did do a sleep study. Treatment Goals Patient/Caregiver Goals Wants to be able to IR behind back so she can put on a bra. PT-OP-C Subjective Start: 11/26/22 09:54 Freq: Status: Active Protocol: Document 01/01/23 11:21 [facility] (Rec: 01/01/23 11:24 [facility] [id number]) OP-PT Subjective Patient Comments Patient Comments Pt reprots feeling like the work from last time really helped. PT-OP-D Balance Start: 11/26/22 09:54 Freq: Status: Active Protocol: Document 11/26/22 09:54 [facility] (Rec: 11/26/22 10:36 [facility] [id number]) Balance Tests Single Limb Standing Single Limb- Right 5 sec Single Limb- Left 7 sec PT-OP-F Manual Assessment Start: 11/26/22 09:54 Freq: Status: Active Protocol: Document 11/26/22 09:54 [facility] (Rec: 11/26/22 10:36 [facility] [id number]) Manual Assessments Joint Mobility Assessment Joint Mobility Assessment equal greater troch and iliac crests B; sidebent to R, R shoulder lower than L, Humerus R is ant in glenoid PT-OP-G Mobility & Gait Start: 11/26/22 09:54 Freq: Status: Active Protocol: Document 11/26/22 09:54 [facility] (Rec: 11/26/22 10:36 [facility] [id number]) OP Gait Assessment Comments Gait Comments dec LUE swing, dec push off on LLE, excessive pelvis rotation PT-OP-J Posture/Palpation/Skin Start: 11/26/22 09:54 Freq: Status: Active Protocol: Document 11/26/22 09:54 [facility] (Rec: 11/26/22 10:36 [facility] [id number]) Posture Evaluation [facility] Postural Classification System [place] Postural Classifications Posterior/Posterior Elbow Flexion Test 1 Lumbar Protective Mechanism Left AP 0 Lumbar Protective Mechanism Right AP 0 Lumbar Protective Mechanism Left PA 4 Lumbar Protective Mechanism Right PA 1 PT-OP-K Range of Motion Start: 11/26/22 09:54 Freq: Status: Active Protocol: Document 11/26/22 09:54 [facility] (Rec: 11/26/22 10:36 [facility] [id number]) Shoulder Goniometric Range of Motion Shoulder Right Active Flexion 132 Extension 50 Abduction 162 External Rotation at 90 degrees 93 Abduction External Rotation at 0 degrees Abduction 50 Internal Rotation Behind Back (text) T12 Comments pain abd coming down and pt went into flex when abd Left Active Flexion 156 Extension 70 Abduction 180 External Rotation at 90 degrees 95 Abduction External Rotation at 0 degrees Abduction 52 Internal Rotation Behind Back (text) T6 PT-OP-L Special Tests Start: 11/26/22 09:54 Freq: Status: Active Protocol: Document 11/26/22 09:54 [facility] (Rec: 11/26/22 10:36 [facility] [id number]) Special Tests Shoulder Special Tests Garcia Michael Impingement Test Results neg Neer Impingement Test Results neg Empty Can Test Results neg Hip Special Tests Bev's Test Results mild tightness L Slump Test Results neg B Straight Leg Raise Test Results positive limited B Neural Special Tests- Upper Body Median Nerve Tension Test Results positve R tension Ulnar Nerve Tension Test Results neg Radial Nerve Tension Test Results neg PT-OP-M Strength Start: 11/26/22 09:54 Freq: Status: Active Protocol: Document 11/26/22 09:54 [facility] (Rec: 11/26/22 10:36 [facility] [id number]) Shoulder Strength Shoulder Manual Muscle Testing Right Flexion 3+ Fair+ Extension 3+ Fair+ Abduction (C5) 4- Good- External Rotation 3+ Fair+ Internal Rotation 3+ Fair+ Left Flexion 4 Good Extension 5 Normal Abduction (C5) 4+ Good+ External Rotation 4+ Good+ Internal Rotation 4+ Good+ Hip Strength Hip Manual Muscle Testing Right Flexion (L2) 3+ Fair+ Extension (S1) 4- Good- Abduction 4 Good Adduction 4 Good External Rotation 3+ Fair+ Internal Rotation 5 Normal Left Flexion (L2) 3+ Fair+ Extension (S1) 3+ Fair+ Abduction 4- Good- Adduction 3+ Fair+ External Rotation 3+ Fair+ Internal Rotation 3+ Fair+ Knee Strength Knee Manual Muscle Testing Right Flexion (S2) 5 Normal Extension (L3) 5 Normal Left Flexion (S2) 4 Good Extension (L3) 4 Good Ankle/Foot Strength Ankle and Foot Manual Muscle Testing Right Dorsiflexion (L4) 5 Normal Plantarflexion (S1) 5 Normal Comments cues to keep knee straight Left Dorsiflexion (L4) 5 Normal Plantarflexion (S1) 5 Normal Comments 20 heel raises B ; B pain in post thigh PT-OP-Q Treatments Start: 11/26/22 09:54 Freq: Status: Active Protocol: Document 01/01/23 11:21 [facility] (Rec: 01/01/23 11:24 [facility] [id number]) Manual Therapy Treatment Soft Tissue Mobilization UE Body Location R circumfrential w/arm slide into IR Mobilization Type Myofascial Release Intensity/Depth Moderate Body Position Hooklying inf Body Location R lat & rhomobids post along scap border & teres/lats at armpit & supscap Mobilization Type Sustained Pressure,Other Intensity/Depth Moderate Body Position Sidelying & supine pec Body Location R Mobilization Type Rolling,Strumming,Sustained Pressure Intensity/Depth Moderate Comments w/gentle ovrehead motion Joint Mobilizations GH Joint R Direction post glide, distraction & lat glide FM PT-OP-T Assessment and Plan Start: 11/26/22 09:54 Freq: Status: Active Protocol: Document 01/01/23 11:21 [facility] (Rec: 01/01/23 11:24 [facility] [id number]) Physical Therapy Assessment Goals balance Plate Embosser Goal (LTG) pt will be able to do SLS for 10 sec B LTG Duration 02/18/23 ROM Plate Embosser Goal (LTG) Pt will have R Shoulder AROM equal to L shoulder in order to allow for donning/doffing bra, reaching overhead, etc. LTG Duration 02/18/23 strength Short Term Goal (STG) Pt will be indep w/HEP STG Duration 01/11/23 Plate Embosser Goal (LTG) pt will score at least 3/5 on LPM and EFT and at least 4+/5 on BUE and BLE MMT to show improved stability in order to do her job and daily activities w/less pain. LTG Duration 02/18/23 work Plate Embosser Goal (LTG) Pt will be able to carry and pull the objects she needs without inc pain. LTG Duration 02/18/23 Assessment Summary Assessment Pt went from about 5 deg PROM 90/90 ER to about 50 deg w/ manual and had improved overhead mobility. L shoulder does demonstrate some fwd & elevated positioning that likely restricts her also. Physical Therapy Plan Frequency and Duration Frequency of Treatment 2x/Week Duration of treatment (weeks) 12 Plan of Care Start Date 11/26/22 Plan of Care End Date 02/18/23 Next Visit Focus/Plan Next Note Type Treatment Note Next Visit Plan review arch lift, manual to soft tissue R shoulder, AC & SC mobs & GH, cont to work on Le mobility
--- NOTE | 2023-01-06 09:51 | PT.OTN ---
Current Diagnoses Other chronic pain (01/06/23) Pain in right shoulder (01/06/23) Pain in left thigh (01/06/23) Fibromyalgia (01/06/23) Difficulty in walking, not elsewhere classified (01/06/23) Abnormal posture (01/06/23) Weakness (01/06/23) Physical Therapy Treatment Note PT-OP-A Visit Information Start: 11/26/22 09:54 Freq: Status: Active Protocol: Document 01/06/23 09:47 [facility] (Rec: 01/06/23 09:51 [facility] [id number]) Out-Patient Physical Therapy Visit Information Visit Information Visit Type Treatment Note Visit Start Time 09:06 Visit Stop Time 09:45 Total Visit Minutes 39 Visit Number 11 Number of SIGN BOARD ERECTOR Visits 0 PT-OP-B Current Condition Start: 11/26/22 09:54 Freq: Status: Active Protocol: Document 11/26/22 09:54 [facility] (Rec: 11/26/22 10:36 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 She has fibromyalgia so she has travelling pain. The things she can't do when things are behind her. She has trouble carrying things up narrow hallways and w/pulling things. It wasn't a one time thing but more of a gradual thing. Her xray didn't show much, but MRI showed 5 things that were moderate. 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 The ortho gave a cortizone shot that gave 3-4 weeks and got a different shot in a different location and when that block wore off, she had extreme pain for 18 hours but it didn't help. She went to OT w/Vivian at [facility]. She has been seeing a naturopathic doctor and has been doing prolo and feels like that is helping her. She used to lose her power when she was reaching overhead but that is better. Her main concern in ROM. She is doing a lot of stretches from the OT. Pt woke up 2 weeks ago w/ really bad L hip pain and it is keeping her up and night and it is radiating down L lat and ant down through lower leg. Pt has head pressure when she bends over that lasts until she sits back up. Has been having sleep issues but did do a sleep study. Treatment Goals Patient/Caregiver Goals Wants to be able to IR behind back so she can put on a bra. PT-OP-C Subjective Start: 11/26/22 09:54 Freq: Status: Active Protocol: Document 01/06/23 09:47 [facility] (Rec: 01/06/23 09:51 [facility] [id number]) OP-PT Subjective Patient Comments Patient Comments Pt reports she slept on a different pillwo this weekend and slepft funny and feels really sore in neck. PT-OP-D Balance Start: 11/26/22 09:54 Freq: Status: Active Protocol: Document 11/26/22 09:54 [facility] (Rec: 11/26/22 10:36 [facility] [id number]) Balance Tests Single Limb Standing Single Limb- Right 5 sec Single Limb- Left 7 sec PT-OP-F Manual Assessment Start: 11/26/22 09:54 Freq: Status: Active Protocol: Document 11/26/22 09:54 [facility] (Rec: 11/26/22 10:36 [facility] [id number]) Manual Assessments Joint Mobility Assessment Joint Mobility Assessment equal greater troch and iliac crests B; sidebent to R, R shoulder lower than L, Humerus R is ant in glenoid PT-OP-G Mobility & Gait Start: 11/26/22 09:54 Freq: Status: Active Protocol: Document 11/26/22 09:54 [facility] (Rec: 11/26/22 10:36 [facility] [id number]) OP Gait Assessment Comments Gait Comments dec LUE swing, dec push off on LLE, excessive pelvis rotation PT-OP-J Posture/Palpation/Skin Start: 11/26/22 09:54 Freq: Status: Active Protocol: Document 11/26/22 09:54 [facility] (Rec: 11/26/22 10:36 [facility] [id number]) Posture Evaluation [facility] Postural Classification System [facility] Postural Classifications Posterior/Posterior Elbow Flexion Test 1 Lumbar Protective Mechanism Left AP 0 Lumbar Protective Mechanism Right AP 0 Lumbar Protective Mechanism Left PA 4 Lumbar Protective Mechanism Right PA 1 PT-OP-K Range of Motion Start: 11/26/22 09:54 Freq: Status: Active Protocol: Document 11/26/22 09:54 [facility] (Rec: 11/26/22 10:36 [facility] [id number]) Shoulder Goniometric Range of Motion Shoulder Right Active Flexion 132 Extension 50 Abduction 162 External Rotation at 90 degrees 93 Abduction External Rotation at 0 degrees Abduction 50 Internal Rotation Behind Back (text) T12 Comments pain abd coming down and pt went into flex when abd Left Active Flexion 156 Extension 70 Abduction 180 External Rotation at 90 degrees 95 Abduction External Rotation at 0 degrees Abduction 52 Internal Rotation Behind Back (text) T6 PT-OP-L Special Tests Start: 11/26/22 09:54 Freq: Status: Active Protocol: Document 11/26/22 09:54 [facility] (Rec: 11/26/22 10:36 [facility] [id number]) Special Tests Shoulder Special Tests Garcia Michael Impingement Test Results neg Neer Impingement Test Results neg Empty Can Test Results neg Hip Special Tests Bev's Test Results mild tightness L Slump Test Results neg B Straight Leg Raise Test Results positive limited B Neural Special Tests- Upper Body Median Nerve Tension Test Results positve R tension Ulnar Nerve Tension Test Results neg Radial Nerve Tension Test Results neg PT-OP-M Strength Start: 11/26/22 09:54 Freq: Status: Active Protocol: Document 11/26/22 09:54 [facility] (Rec: 11/26/22 10:36 [facility] [id number]) Shoulder Strength Shoulder Manual Muscle Testing Right Flexion 3+ Fair+ Extension 3+ Fair+ Abduction (C5) 4- Good- External Rotation 3+ Fair+ Internal Rotation 3+ Fair+ Left Flexion 4 Good Extension 5 Normal Abduction (C5) 4+ Good+ External Rotation 4+ Good+ Internal Rotation 4+ Good+ Hip Strength Hip Manual Muscle Testing Right Flexion (L2) 3+ Fair+ Extension (S1) 4- Good- Abduction 4 Good Adduction 4 Good External Rotation 3+ Fair+ Internal Rotation 5 Normal Left Flexion (L2) 3+ Fair+ Extension (S1) 3+ Fair+ Abduction 4- Good- Adduction 3+ Fair+ External Rotation 3+ Fair+ Internal Rotation 3+ Fair+ Knee Strength Knee Manual Muscle Testing Right Flexion (S2) 5 Normal Extension (L3) 5 Normal Left Flexion (S2) 4 Good Extension (L3) 4 Good Ankle/Foot Strength Ankle and Foot Manual Muscle Testing Right Dorsiflexion (L4) 5 Normal Plantarflexion (S1) 5 Normal Comments cues to keep knee straight Left Dorsiflexion (L4) 5 Normal Plantarflexion (S1) 5 Normal Comments 20 heel raises B ; B pain in post thigh PT-OP-Q Treatments Start: 11/26/22 09:54 Freq: Status: Active Protocol: Document 01/06/23 09:47 [facility] (Rec: 01/06/23 09:51 [facility] [id number]) Therapeutic Exercises Standing Exercises mob Standing Exercise Name self ankle AP Side bilateral Reps/Minutes 1 min Manual Therapy Treatment Soft Tissue Mobilization back Body Location R rhomboid & lat & teres FM Mobilization Type Rolling Intensity/Depth Moderate Body Position Sidelying Comments FM Superior Body Location scalenes, [place], LS, R FM Mobilization Type Rolling Intensity/Depth Moderate Body Position Sidelying Comments w/post dep FM Joint Mobilizations thoracic Joint R Comments PA & UPA FM R & transverse L T1-3 FM sternum Joint R manubrium AP FM ribs Comments PA R 1st rib & caudal FM AC Joint R ant FM PT-OP-T Assessment and Plan Start: 11/26/22 09:54 Freq: Status: Active Protocol: Document 01/06/23 09:47 [facility] (Rec: 01/06/23 09:51 [facility] [id number]) Physical Therapy Assessment Goals balance Fci Goal (LTG) pt will be able to do SLS for 10 sec B LTG Duration 02/18/23 ROM Chassis Mechanic Goal (LTG) Pt will have R Shoulder AROM equal to L shoulder in order to allow for donning/doffing bra, reaching overhead, etc. LTG Duration 02/18/23 strength Short Term Goal (STG) Pt will be indep w/HEP STG Duration 01/11/23 Chassis Mechanic Goal (LTG) pt will score at least 3/5 on LPM and EFT and at least 4+/5 on BUE and BLE MMT to show improved stability in order to do her job and daily activities w/less pain. LTG Duration 02/18/23 work Chassis Mechanic Goal (LTG) Pt will be able to carry and pull the objects she needs without inc pain. LTG Duration 02/18/23 Assessment Summary Assessment Pt went from 50% R rot to about 700%w/manual and had imrpoved dep of R scap & had good elevation today after manual of RUE. Physical Therapy Plan Frequency and Duration Frequency of Treatment 2x/Week Duration of treatment (weeks) 12 Plan of Care Start Date 11/26/22 Plan of Care End Date 02/18/23 Next Visit Focus/Plan Next Note Type Treatment Note Next Visit Plan give mod pivot prone scap set. review arch lift, manual to soft tissue R shoulder, AC & SC mobs & GH, cont to work on Le mobility
--- NOTE | 2023-01-13 09:59 | PT.OTN ---
Current Diagnoses Other chronic pain (01/13/23) Pain in right shoulder (01/13/23) Pain in left thigh (01/13/23) Fibromyalgia (01/13/23) Difficulty in walking, not elsewhere classified (01/13/23) Abnormal posture (01/13/23) Weakness (01/13/23) Physical Therapy Treatment Note PT-OP-A Visit Information Start: 11/26/22 09:54 Freq: Status: Active Protocol: Document 01/13/23 09:04 [facility] (Rec: 01/13/23 09:59 [facility] [id number]) Out-Patient Physical Therapy Visit Information Visit Information Visit Type Treatment Note Visit Start Time 09:04 Visit Stop Time 09:45 Total Visit Minutes 41 Visit Number 12 Number of IMAGE PROCESSING ENGINEER Visits 0 PT-OP-B Current Condition Start: 11/26/22 09:54 Freq: Status: Active Protocol: Document 11/26/22 09:54 [facility] (Rec: 11/26/22 10:36 [facility] [id number]) Current Condition History of Current Condition Onset Date 1-1.5 ear ago Current Complaints R shoulder pain & L hip and leg pain History of Current Condition Pt reports about 1-1.5 years ago, 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 She has fibromyalgia so she has travelling pain. The things she can't do when things are behind her. She has trouble carrying things up narrow hallways and w/pulling things. It wasn't a one time thing but more of a gradual thing. Her xray didn't show much, but MRI showed 5 things that were moderate. 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 The ortho gave a cortizone shot that gave 3-4 weeks and got a different shot in a different location and when that block wore off, she had extreme pain for 18 hours but it didn't help. She went to OT w/Vivian at [facility]. She has been seeing a naturopathic doctor and has been doing prolo and feels like that is helping her. She used to lose her power when she was reaching overhead but that is better. Her main concern in ROM. She is doing a lot of stretches from the OT. Pt woke up 2 weeks ago w/ really bad L hip pain and it is keeping her up and night and it is radiating down L lat and ant down through lower leg. Pt has head pressure when she bends over that lasts until she sits back up. Has been having sleep issues but did do a sleep study. Treatment Goals Patient/Caregiver Goals Wants to be able to IR behind back so she can put on a bra. PT-OP-C Subjective Start: 11/26/22 09:54 Freq: Status: Active Protocol: Document 01/13/23 09:04 [facility] (Rec: 01/13/23 09:59 [facility] [id number]) OP-PT Subjective Patient Comments Patient Comments Pt reprots she has been sore on R neck. she knows some of it is sleep and she occ wakes in a weird position. Pt rpeorts some weird feeling in her ankles. PT-OP-D Balance Start: 11/26/22 09:54 Freq: Status: Active Protocol: Document 11/26/22 09:54 [facility] (Rec: 11/26/22 10:36 [facility] [id number]) Balance Tests Single Limb Standing Single Limb- Right 5 sec Single Limb- Left 7 sec PT-OP-F Manual Assessment Start: 11/26/22 09:54 Freq: Status: Active Protocol: Document 11/26/22 09:54 [facility] (Rec: 11/26/22 10:36 [facility] [id number]) Manual Assessments Joint Mobility Assessment Joint Mobility Assessment equal greater troch and iliac crests B; sidebent to R, R shoulder lower than L, Humerus R is ant in glenoid PT-OP-G Mobility & Gait Start: 11/26/22 09:54 Freq: Status: Active Protocol: Document 11/26/22 09:54 [facility] (Rec: 11/26/22 10:36 [facility] [id number]) OP Gait Assessment Comments Gait Comments dec LUE swing, dec push off on LLE, excessive pelvis rotation PT-OP-J Posture/Palpation/Skin Start: 11/26/22 09:54 Freq: Status: Active Protocol: Document 11/26/22 09:54 [facility] (Rec: 11/26/22 10:36 [facility] [id number]) Posture Evaluation Roldan Postural Classification System Roldan Postural Classifications Posterior/Posterior Elbow Flexion Test 1 Lumbar Protective Mechanism Left AP 0 Lumbar Protective Mechanism Right AP 0 Lumbar Protective Mechanism Left PA 4 Lumbar Protective Mechanism Right PA 1 PT-OP-K Range of Motion Start: 11/26/22 09:54 Freq: Status: Active Protocol: Document 11/26/22 09:54 [facility] (Rec: 11/26/22 10:36 [facility] [id number]) Shoulder Goniometric Range of Motion Shoulder Right Active Flexion 132 Extension 50 Abduction 162 External Rotation at 90 degrees 93 Abduction External Rotation at 0 degrees Abduction 50 Internal Rotation Behind Back (text) T12 Comments pain abd coming down and pt went into flex when abd Left Active Flexion 156 Extension 70 Abduction 180 External Rotation at 90 degrees 95 Abduction External Rotation at 0 degrees Abduction 52 Internal Rotation Behind Back (text) T6 PT-OP-L Special Tests Start: 11/26/22 09:54 Freq: Status: Active Protocol: Document 11/26/22 09:54 [facility] (Rec: 11/26/22 10:36 [facility] [id number]) Special Tests Shoulder Special Tests Garcia Michael Impingement Test Results neg Neer Impingement Test Results neg Empty Can Test Results neg Hip Special Tests Bev's Test Results mild tightness L Slump Test Results neg B Straight Leg Raise Test Results positive limited B Neural Special Tests- Upper Body Median Nerve Tension Test Results positve R tension Ulnar Nerve Tension Test Results neg Radial Nerve Tension Test Results neg PT-OP-M Strength Start: 11/26/22 09:54 Freq: Status: Active Protocol: Document 11/26/22 09:54 [facility] (Rec: 11/26/22 10:36 [facility] [id number]) Shoulder Strength Shoulder Manual Muscle Testing Right Flexion 3+ Fair+ Extension 3+ Fair+ Abduction (C5) 4- Good- External Rotation 3+ Fair+ Internal Rotation 3+ Fair+ Left Flexion 4 Good Extension 5 Normal Abduction (C5) 4+ Good+ External Rotation 4+ Good+ Internal Rotation 4+ Good+ Hip Strength Hip Manual Muscle Testing Right Flexion (L2) 3+ Fair+ Extension (S1) 4- Good- Abduction 4 Good Adduction 4 Good External Rotation 3+ Fair+ Internal Rotation 5 Normal Left Flexion (L2) 3+ Fair+ Extension (S1) 3+ Fair+ Abduction 4- Good- Adduction 3+ Fair+ External Rotation 3+ Fair+ Internal Rotation 3+ Fair+ Knee Strength Knee Manual Muscle Testing Right Flexion (S2) 5 Normal Extension (L3) 5 Normal Left Flexion (S2) 4 Good Extension (L3) 4 Good Ankle/Foot Strength Ankle and Foot Manual Muscle Testing Right Dorsiflexion (L4) 5 Normal Plantarflexion (S1) 5 Normal Comments cues to keep knee straight Left Dorsiflexion (L4) 5 Normal Plantarflexion (S1) 5 Normal Comments 20 heel raises B ; B pain in post thigh PT-OP-Q Treatments Start: 11/26/22 09:54 Freq: Status: Active Protocol: Document 01/13/23 09:04 [facility] (Rec: 01/13/23 09:59 [facility] [id number]) Therapeutic Exercises Standing Exercises scap set Standing Exercise Name mod pivot prone Side bilateral Reps/Minutes 8 Manual Therapy Treatment Soft Tissue Mobilization scap Body Location R subscap, R lat Mobilization Type Strumming,Sustained Pressure Intensity/Depth Moderate Body Position Supine Superior Body Location scalenes, UT, LS, R FM, SO Mobilization Type Rolling Intensity/Depth Moderate Comments supine & s/l Joint Mobilizations thoracic Comments PA & UPA FM L & transverse L T1-4 FM; L UPA T4 PT-OP-T Assessment and Plan Start: 11/26/22 09:54 Freq: Status: Active Protocol: Document 01/13/23 09:04 [facility] (Rec: 01/13/23 09:59 [facility] [id number]) Physical Therapy Assessment Goals balance Tonger Goal (LTG) pt will be able to do SLS for 10 sec B LTG Duration 02/18/23 ROM Tonger Goal (LTG) Pt will have R Shoulder AROM equal to L shoulder in order to allow for donning/doffing bra, reaching overhead, etc. LTG Duration 02/18/23 strength Short Term Goal (STG) Pt will be indep w/HEP STG Duration 01/11/23 Tonger Goal (LTG) pt will score at least 3/5 on LPM and EFT and at least 4+/5 on BUE and BLE MMT to show improved stability in order to do her job and daily activities w/less pain. LTG Duration 02/18/23 work Tonger Goal (LTG) Pt will be able to carry and pull the objects she needs without inc pain. LTG Duration 02/18/23 Assessment Summary Assessment Improved R rotation w/manual treatment. She is maintianing R post dep of scap btwn sessions and is demonstrating improved overhead motion of RUE. Physical Therapy Plan Frequency and Duration Frequency of Treatment 2x/Week Duration of treatment (weeks) 12 Plan of Care Start Date 11/26/22 Plan of Care End Date 02/18/23 Next Visit Focus/Plan Next Note Type Treatment Note Next Visit Plan review mod pivot prone scap set. review arch lift, manual to soft tissue R shoulder, AC & SC mobs & GH, cont to work on Le mobility
--- NOTE | 2023-01-15 11:20 | PT.OTN ---
Current Diagnoses Other chronic pain (01/15/23) Pain in right shoulder (01/15/23) Pain in left thigh (01/15/23) Fibromyalgia (01/15/23) Difficulty in walking, not elsewhere classified (01/15/23) Abnormal posture (01/15/23) Weakness (01/15/23) Physical Therapy Treatment Note PT-OP-A Visit Information Start: 11/26/22 09:54 Freq: Status: Active Protocol: Document 01/15/23 10:41 [facility] (Rec: 01/15/23 11:20 [facility] [id number]) Out-Patient Physical Therapy Visit Information Visit Information Visit Type Treatment Note Visit Start Time 10:42 Visit Stop Time 11:25 Total Visit Minutes 43 Visit Number 13 Number of DIRECTOR PROJECT MANAGEMENT Visits 0 PT-OP-B Current Condition Start: 11/26/22 09:54 Freq: Status: Active Protocol: Document 11/26/22 09:54 [facility] (Rec: 11/26/22 10:36 [facility] [id number]) Current Condition History of Current Condition Onset Date 1-1.5 ear ago Current Complaints R shoulder pain & L hip and leg pain History of Current Condition Pt reports about 1-1.5 years ago, 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 She has fibromyalgia so she has travelling pain. The things she can't do when things are behind her. She has trouble carrying things up narrow hallways and w/pulling things. It wasn't a one time thing but more of a gradual thing. Her xray didn't show much, but MRI showed 5 things that were moderate. 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 The ortho gave a cortizone shot that gave 3-4 weeks and got a different shot in a different location and when that block wore off, she had extreme pain for 18 hours but it didn't help. She went to OT w/Vivian at [facility]. She has been seeing a naturopathic doctor and has been doing prolo and feels like that is helping her. She used to lose her power when she was reaching overhead but that is better. Her main concern in ROM. She is doing a lot of stretches from the OT. Pt woke up 2 weeks ago w/ really bad L hip pain and it is keeping her up and night and it is radiating down L lat and ant down through lower leg. Pt has head pressure when she bends over that lasts until she sits back up. Has been having sleep issues but did do a sleep study. Treatment Goals Patient/Caregiver Goals Wants to be able to IR behind back so she can put on a bra. PT-OP-C Subjective Start: 11/26/22 09:54 Freq: Status: Active Protocol: Document 01/15/23 10:41 [facility] (Rec: 01/15/23 11:20 [facility] [id number]) OP-PT Subjective Patient Comments Patient Comments pt reports she was doing well after last session but woke up yesterday w/pain. she started having B leg pain (rosen) during a walk on friday and had to cut her walk short. PT-OP-D Balance Start: 11/26/22 09:54 Freq: Status: Active Protocol: Document 11/26/22 09:54 [facility] (Rec: 11/26/22 10:36 [facility] [id number]) Balance Tests Single Limb Standing Single Limb- Right 5 sec Single Limb- Left 7 sec PT-OP-F Manual Assessment Start: 11/26/22 09:54 Freq: Status: Active Protocol: Document 11/26/22 09:54 [facility] (Rec: 11/26/22 10:36 [facility] [id number]) Manual Assessments Joint Mobility Assessment Joint Mobility Assessment equal greater troch and iliac crests B; sidebent to R, R shoulder lower than L, Humerus R is ant in glenoid PT-OP-G Mobility & Gait Start: 11/26/22 09:54 Freq: Status: Active Protocol: Document 11/26/22 09:54 [facility] (Rec: 11/26/22 10:36 [facility] [id number]) OP Gait Assessment Comments Gait Comments dec LUE swing, dec push off on LLE, excessive pelvis rotation PT-OP-J Posture/Palpation/Skin Start: 11/26/22 09:54 Freq: Status: Active Protocol: Document 11/26/22 09:54 [facility] (Rec: 11/26/22 10:36 [facility] [id number]) Posture Evaluation Roldan Postural Classification System Roldan Postural Classifications Posterior/Posterior Elbow Flexion Test 1 Lumbar Protective Mechanism Left AP 0 Lumbar Protective Mechanism Right AP 0 Lumbar Protective Mechanism Left PA 4 Lumbar Protective Mechanism Right PA 1 PT-OP-K Range of Motion Start: 11/26/22 09:54 Freq: Status: Active Protocol: Document 11/26/22 09:54 [facility] (Rec: 11/26/22 10:36 [facility] [id number]) Shoulder Goniometric Range of Motion Shoulder Right Active Flexion 132 Extension 50 Abduction 162 External Rotation at 90 degrees 93 Abduction External Rotation at 0 degrees Abduction 50 Internal Rotation Behind Back (text) T12 Comments pain abd coming down and pt went into flex when abd Left Active Flexion 156 Extension 70 Abduction 180 External Rotation at 90 degrees 95 Abduction External Rotation at 0 degrees Abduction 52 Internal Rotation Behind Back (text) T6 PT-OP-L Special Tests Start: 11/26/22 09:54 Freq: Status: Active Protocol: Document 11/26/22 09:54 [facility] (Rec: 11/26/22 10:36 [facility] [id number]) Special Tests Shoulder Special Tests Garcia Michael Impingement Test Results neg Neer Impingement Test Results neg Empty Can Test Results neg Hip Special Tests Bev's Test Results mild tightness L Slump Test Results neg B Straight Leg Raise Test Results positive limited B Neural Special Tests- Upper Body Median Nerve Tension Test Results positve R tension Ulnar Nerve Tension Test Results neg Radial Nerve Tension Test Results neg PT-OP-M Strength Start: 11/26/22 09:54 Freq: Status: Active Protocol: Document 11/26/22 09:54 [facility] (Rec: 11/26/22 10:36 [facility] [id number]) Shoulder Strength Shoulder Manual Muscle Testing Right Flexion 3+ Fair+ Extension 3+ Fair+ Abduction (C5) 4- Good- External Rotation 3+ Fair+ Internal Rotation 3+ Fair+ Left Flexion 4 Good Extension 5 Normal Abduction (C5) 4+ Good+ External Rotation 4+ Good+ Internal Rotation 4+ Good+ Hip Strength Hip Manual Muscle Testing Right Flexion (L2) 3+ Fair+ Extension (S1) 4- Good- Abduction 4 Good Adduction 4 Good External Rotation 3+ Fair+ Internal Rotation 5 Normal Left Flexion (L2) 3+ Fair+ Extension (S1) 3+ Fair+ Abduction 4- Good- Adduction 3+ Fair+ External Rotation 3+ Fair+ Internal Rotation 3+ Fair+ Knee Strength Knee Manual Muscle Testing Right Flexion (S2) 5 Normal Extension (L3) 5 Normal Left Flexion (S2) 4 Good Extension (L3) 4 Good Ankle/Foot Strength Ankle and Foot Manual Muscle Testing Right Dorsiflexion (L4) 5 Normal Plantarflexion (S1) 5 Normal Comments cues to keep knee straight Left Dorsiflexion (L4) 5 Normal Plantarflexion (S1) 5 Normal Comments 20 heel raises B ; B pain in post thigh PT-OP-Q Treatments Start: 11/26/22 09:54 Freq: Status: Active Protocol: Document 01/15/23 10:41 [facility] (Rec: 01/15/23 11:20 [facility] [id number]) Therapeutic Exercises Standing Exercises IR Standing Exercise Name R shoulder stretch w/towel Reps/Minutes 30 sec scap set Standing Exercise Name mod pivot prone Side bilateral Reps/Minutes 5 min Comments done on wall also w/cues for wall posture arch raises Standing Exercise Name B Side bilateral Reps/Minutes 4 min Manual Therapy Treatment Joint Mobilizations cervical Comments C1 & 2 transverse L FM and UAP R tibfib Comments proximal AP B FM distal PA FM B sup R FM PT-OP-T Assessment and Plan Start: 11/26/22 09:54 Freq: Status: Active Protocol: Document 01/15/23 10:41 [facility] (Rec: 01/15/23 11:20 [facility] [id number]) Physical Therapy Assessment Goals balance Long-Term Goal (LTG) pt will be able to do SLS for 10 sec B LTG Duration 02/18/23 ROM Long-Term Goal (LTG) Pt will have R Shoulder AROM equal to L shoulder in order to allow for donning/doffing bra, reaching overhead, etc. LTG Duration 02/18/23 strength Short Term Goal (STG) Pt will be indep w/HEP STG Duration 01/11/23 Manager Ob Goal (LTG) pt will score at least 3/5 on LPM and EFT and at least 4+/5 on BUE and BLE MMT to show improved stability in order to do her job and daily activities w/less pain. LTG Duration 02/18/23 work Manager Ob Goal (LTG) Pt will be able to carry and pull the objects she needs without inc pain. LTG Duration 02/18/23 Assessment Summary Assessment Pt had imrpoved R rotation w/ manual treatment. Improved fibular accesorry mobiltiy which likely will help lower leg pain. Physical Therapy Plan Frequency and Duration Frequency of Treatment 2x/Week Duration of treatment (weeks) 12 Plan of Care Start Date 11/26/22 Plan of Care End Date 02/18/23 Next Visit Focus/Plan Next Note Type Treatment Note Next Visit Plan review mod pivot prone scap set. review arch lift, manual to soft tissue R shoulder, AC & SC mobs & GH, cont to work on Le mobility
--- NOTE | 2023-01-20 09:51 | PT.OTN ---
Current Diagnoses Other chronic pain (01/20/23) Pain in right shoulder (01/20/23) Pain in left thigh (01/20/23) Fibromyalgia (01/20/23) Difficulty in walking, not elsewhere classified (01/20/23) Abnormal posture (01/20/23) Weakness (01/20/23) Physical Therapy Treatment Note PT-OP-A Visit Information Start: 11/26/22 09:54 Freq: Status: Active Protocol: Document 01/20/23 09:04 [facility] (Rec: 01/20/23 09:51 [facility] [id number]) Out-Patient Physical Therapy Visit Information Visit Information Visit Type Treatment Note Visit Start Time 09:09 Visit Stop Time 09:47 Total Visit Minutes 48 Visit Number 14 Number of CRYSTALLOGRAPHER Visits 0 PT-OP-B Current Condition Start: 11/26/22 09:54 Freq: Status: Active Protocol: Document 11/26/22 09:54 [facility] (Rec: 11/26/22 10:36 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 She has fibromyalgia so she has travelling pain. The things she can't do when things are behind her. She has trouble carrying things up narrow hallways and w/pulling things. It wasn't a one time thing but more of a gradual thing. Her xray didn't show much, but MRI showed 5 things that were moderate. 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 The ortho gave a cortizone shot that gave 3-4 weeks and got a different shot in a different location and when that block wore off, she had extreme pain for 18 hours but it didn't help. She went to OT w/Vivian at [facility]. She has been seeing a naturopathic doctor and has been doing prolo and feels like that is helping her. She used to lose her power when she was reaching overhead but that is better. Her main concern in ROM. She is doing a lot of stretches from the OT. Pt woke up 2 weeks ago w/ really bad L hip pain and it is keeping her up and night and it is radiating down L lat and ant down through lower leg. Pt has head pressure when she bends over that lasts until she sits back up. Has been having sleep issues but did do a sleep study. Treatment Goals Patient/Caregiver Goals Wants to be able to IR behind back so she can put on a bra. PT-OP-C Subjective Start: 11/26/22 09:54 Freq: Status: Active Protocol: Document 01/20/23 09:04 [facility] (Rec: 01/20/23 09:51 [facility] [id number]) OP-PT Subjective Patient Comments Patient Comments pt didnt walk all week and did on friday and shins were fine . Is going to rest again today . Pt reports she was getting her nails done at [employer] and was carrying things and slipped on water on floor w/the flip flps and L leg went out under her so she landed on her R knee. She felt like it went deep and R knee feels like it is still recovering. She felt like this was very jarring to her entire body. This was last friday. PT-OP-D Balance Start: 11/26/22 09:54 Freq: Status: Active Protocol: Document 11/26/22 09:54 [facility] (Rec: 11/26/22 10:36 [facility] [id number]) Balance Tests Single Limb Standing Single Limb- Right 5 sec Single Limb- Left 7 sec PT-OP-F Manual Assessment Start: 11/26/22 09:54 Freq: Status: Active Protocol: Document 11/26/22 09:54 [facility] (Rec: 11/26/22 10:36 [facility] [id number]) Manual Assessments Joint Mobility Assessment Joint Mobility Assessment equal greater troch and iliac crests B; sidebent to R, R shoulder lower than L, Humerus R is ant in glenoid PT-OP-G Mobility & Gait Start: 11/26/22 09:54 Freq: Status: Active Protocol: Document 11/26/22 09:54 [facility] (Rec: 11/26/22 10:36 [facility] [id number]) OP Gait Assessment Comments Gait Comments dec LUE swing, dec push off on LLE, excessive pelvis rotation PT-OP-J Posture/Palpation/Skin Start: 11/26/22 09:54 Freq: Status: Active Protocol: Document 11/26/22 09:54 [facility] (Rec: 11/26/22 10:36 [facility] [id number]) Posture Evaluation [facility] Postural Classification System Roldan Postural Classifications Posterior/Posterior Elbow Flexion Test 1 Lumbar Protective Mechanism Left AP 0 Lumbar Protective Mechanism Right AP 0 Lumbar Protective Mechanism Left PA 4 Lumbar Protective Mechanism Right PA 1 PT-OP-K Range of Motion Start: 11/26/22 09:54 Freq: Status: Active Protocol: Document 11/26/22 09:54 [facility] (Rec: 11/26/22 10:36 [facility] [id number]) Shoulder Goniometric Range of Motion Shoulder Right Active Flexion 132 Extension 50 Abduction 162 External Rotation at 90 degrees 93 Abduction External Rotation at 0 degrees Abduction 50 Internal Rotation Behind Back (text) T12 Comments pain abd coming down and pt went into flex when abd Left Active Flexion 156 Extension 70 Abduction 180 External Rotation at 90 degrees 95 Abduction External Rotation at 0 degrees Abduction 52 Internal Rotation Behind Back (text) T6 PT-OP-L Special Tests Start: 11/26/22 09:54 Freq: Status: Active Protocol: Document 11/26/22 09:54 [facility] (Rec: 11/26/22 10:36 [facility] [id number]) Special Tests Shoulder Special Tests Garcia Michael Impingement Test Results neg Neer Impingement Test Results neg Empty Can Test Results neg Hip Special Tests Bev's Test Results mild tightness L Slump Test Results neg B Straight Leg Raise Test Results positive limited B Neural Special Tests- Upper Body Median Nerve Tension Test Results positve R tension Ulnar Nerve Tension Test Results neg Radial Nerve Tension Test Results neg PT-OP-M Strength Start: 11/26/22 09:54 Freq: Status: Active Protocol: Document 11/26/22 09:54 [facility] (Rec: 11/26/22 10:36 [facility] [id number]) Shoulder Strength Shoulder Manual Muscle Testing Right Flexion 3+ Fair+ Extension 3+ Fair+ Abduction (C5) 4- Good- External Rotation 3+ Fair+ Internal Rotation 3+ Fair+ Left Flexion 4 Good Extension 5 Normal Abduction (C5) 4+ Good+ External Rotation 4+ Good+ Internal Rotation 4+ Good+ Hip Strength Hip Manual Muscle Testing Right Flexion (L2) 3+ Fair+ Extension (S1) 4- Good- Abduction 4 Good Adduction 4 Good External Rotation 3+ Fair+ Internal Rotation 5 Normal Left Flexion (L2) 3+ Fair+ Extension (S1) 3+ Fair+ Abduction 4- Good- Adduction 3+ Fair+ External Rotation 3+ Fair+ Internal Rotation 3+ Fair+ Knee Strength Knee Manual Muscle Testing Right Flexion (S2) 5 Normal Extension (L3) 5 Normal Left Flexion (S2) 4 Good Extension (L3) 4 Good Ankle/Foot Strength Ankle and Foot Manual Muscle Testing Right Dorsiflexion (L4) 5 Normal Plantarflexion (S1) 5 Normal Comments cues to keep knee straight Left Dorsiflexion (L4) 5 Normal Plantarflexion (S1) 5 Normal Comments 20 heel raises B ; B pain in post thigh PT-OP-Q Treatments Start: 11/26/22 09:54 Freq: Status: Active Protocol: Document 01/20/23 09:04 [facility] (Rec: 01/20/23 09:51 [facility] [id number]) Therapeutic Exercises Standing Exercises IR Standing Exercise Name shoulder stretch w/towel Side bilateral Reps/Minutes 30 sec scap set Standing Exercise Name mod pivot prone Side bilateral Reps/Minutes 5 min Comments done on wall also w/cues for wall posture mob Standing Exercise Name self ankle AP Side bilateral Reps/Minutes 2 min arch raises Standing Exercise Name B Side bilateral Reps/Minutes 2 min Manual Therapy Treatment Soft Tissue Mobilization Superior Body Location scalenes, UT, LS, R FM, SO Mobilization Type Rolling Intensity/Depth Moderate Comments supine Joint Mobilizations cervical Comments C1 & 2 transverse L FM and UAP R tibfib Comments distal AP L percussion ankle Comments AP L percussion PT-OP-R Modalities Start: 11/26/22 09:54 Freq: Status: Active Protocol: Document 01/20/23 09:04 [facility] (Rec: 01/20/23 09:51 [facility] [id number]) Hot Pack/Cold Pack Treatment Cold Pack Location R shoulder Treatment Duration (minutes) 10 PT-OP-T Assessment and Plan Start: 11/26/22 09:54 Freq: Status: Active Protocol: Document 01/20/23 09:04 [facility] (Rec: 01/20/23 09:51 [facility] [id number]) Physical Therapy Assessment Goals balance Fdc Goal (LTG) pt will be able to do SLS for 10 sec B LTG Duration 02/18/23 ROM Fdc Goal (LTG) Pt will have R Shoulder AROM equal to L shoulder in order to allow for donning/doffing bra, reaching overhead, etc. LTG Duration 02/18/23 strength Short Term Goal (STG) Pt will be indep w/HEP STG Duration 01/11/23 Fdc Goal (LTG) pt will score at least 3/5 on LPM and EFT and at least 4+/5 on BUE and BLE MMT to show improved stability in order to do her job and daily activities w/less pain. LTG Duration 02/18/23 work [employer] Hat[employer] Manager Goal (LTG) Pt will be able to carry and pull the objects she needs without inc pain. LTG Duration 02/18/23 Assessment Summary Assessment Pt required some cueing for form w/all exercises today. She did well with all cues through and was able to perform well. Improved ROM from 60% B to 70% B W/manual. Improved DF in standing knee bend w/manual and exercise Physical Therapy Plan Frequency and Duration Frequency of Treatment 2x/Week Duration of treatment (weeks) 12 Plan of Care Start Date 11/26/22 Plan of Care End Date 02/18/23 Next Visit Focus/Plan Next Note Type Treatment Note Next Visit Plan review mod pivot prone scap set. review arch lift, manual to soft tissue R shoulder, AC & SC mobs & GH, cont to work on Le mobility
--- NOTE | 2023-01-23 14:36 | PT.OTN ---
Current Diagnoses Other chronic pain (01/23/23) Pain in right shoulder (01/23/23) Pain in left thigh (01/23/23) Fibromyalgia (01/23/23) Difficulty in walking, not elsewhere classified (01/23/23) Abnormal posture (01/23/23) Weakness (01/23/23) Physical Therapy Treatment Note PT-OP-A Visit Information Start: 11/26/22 09:54 Freq: Status: Active Protocol: Document 01/23/23 13:50 [facility] (Rec: 01/23/23 14:35 [facility] [id number]) Out-Patient Physical Therapy Visit Information Visit Information Visit Type Treatment Note Visit Start Time 13:51 Visit Stop Time 14:40 Total Visit Minutes 49 Visit Number 15 Number of TELETYPE MECHANIC Visits 0 PT-OP-B Current Condition Start: 11/26/22 09:54 Freq: Status: Active Protocol: Document 11/26/22 09:54 [facility] (Rec: 11/26/22 10:36 [facility] [id number]) Current Condition History of Current Condition Onset Date 1-1.5 ear ago Current Complaints R shoulder pain & L hip and leg pain History of Current Condition Pt reports about 1-1.5 years ago, 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 She has fibromyalgia so she has travelling pain. The things she can't do when things are behind her. She has trouble carrying things up narrow hallways and w/pulling things. It wasn't a one time thing but more of a gradual thing. Her xray didn't show much, but MRI showed 5 things that were moderate. 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 The ortho gave a cortizone shot that gave 3-4 weeks and got a different shot in a different location and when that block wore off, she had extreme pain for 18 hours but it didn't help. She went to OT w/Vivian at [facility]. She has been seeing a naturopathic doctor and has been doing prolo and feels like that is helping her. She used to lose her power when she was reaching overhead but that is better. Her main concern in ROM. She is doing a lot of stretches from the OT. Pt woke up 2 weeks ago w/ really bad L hip pain and it is keeping her up and night and it is radiating down L lat and ant down through lower leg. Pt has head pressure when she bends over that lasts until she sits back up. Has been having sleep issues but did do a sleep study. Treatment Goals Patient/Caregiver Goals Wants to be able to IR behind back so she can put on a bra. PT-OP-C Subjective Start: 11/26/22 09:54 Freq: Status: Active Protocol: Document 01/23/23 13:50 [facility] (Rec: 01/23/23 14:35 [facility] [id number]) OP-PT Subjective Patient Comments Patient Comments Pt reprots when she went away, the bed was uncomfortable and didn't agree w/LB and shoulder. She had acupuncture and that helped and she took a bath. She walked yesterday and started to feel lik eshe she was going to get sore so stopped at 2 miles. Pt notes better neck range now but on the R side just feels tight and entire lower body is tight . PT-OP-D Balance Start: 11/26/22 09:54 Freq: Status: Active Protocol: Document 11/26/22 09:54 [facility] (Rec: 11/26/22 10:36 [facility] [id number]) Balance Tests Single Limb Standing Single Limb- Right 5 sec Single Limb- Left 7 sec PT-OP-F Manual Assessment Start: 11/26/22 09:54 Freq: Status: Active Protocol: Document 11/26/22 09:54 [facility] (Rec: 11/26/22 10:36 [facility] [id number]) Manual Assessments Joint Mobility Assessment Joint Mobility Assessment equal greater troch and iliac crests B; sidebent to R, R shoulder lower than L, Humerus R is ant in glenoid PT-OP-G Mobility & Gait Start: 11/26/22 09:54 Freq: Status: Active Protocol: Document 11/26/22 09:54 [facility] (Rec: 11/26/22 10:36 [facility] [id number]) OP Gait Assessment Comments Gait Comments dec LUE swing, dec push off on LLE, excessive pelvis rotation PT-OP-J Posture/Palpation/Skin Start: 11/26/22 09:54 Freq: Status: Active Protocol: Document 11/26/22 09:54 [facility] (Rec: 11/26/22 10:36 [facility] [id number]) Posture Evaluation [facility] Postural Classification System Roldan Postural Classifications Posterior/Posterior Elbow Flexion Test 1 Lumbar Protective Mechanism Left AP 0 Lumbar Protective Mechanism Right AP 0 Lumbar Protective Mechanism Left PA 4 Lumbar Protective Mechanism Right PA 1 PT-OP-K Range of Motion Start: 11/26/22 09:54 Freq: Status: Active Protocol: Document 11/26/22 09:54 [facility] (Rec: 11/26/22 10:36 [facility] [id number]) Shoulder Goniometric Range of Motion Shoulder Right Active Flexion 132 Extension 50 Abduction 162 External Rotation at 90 degrees 93 Abduction External Rotation at 0 degrees Abduction 50 Internal Rotation Behind Back (text) T12 Comments pain abd coming down and pt went into flex when abd Left Active Flexion 156 Extension 70 Abduction 180 External Rotation at 90 degrees 95 Abduction External Rotation at 0 degrees Abduction 52 Internal Rotation Behind Back (text) T6 PT-OP-L Special Tests Start: 11/26/22 09:54 Freq: Status: Active Protocol: Document 11/26/22 09:54 [facility] (Rec: 11/26/22 10:36 [facility] [id number]) Special Tests Shoulder Special Tests Garcia Michael Impingement Test Results neg Neer Impingement Test Results neg Empty Can Test Results neg Hip Special Tests Bev's Test Results mild tightness L Slump Test Results neg B Straight Leg Raise Test Results positive limited B Neural Special Tests- Upper Body Median Nerve Tension Test Results positve R tension Ulnar Nerve Tension Test Results neg Radial Nerve Tension Test Results neg PT-OP-M Strength Start: 11/26/22 09:54 Freq: Status: Active Protocol: Document 11/26/22 09:54 [facility] (Rec: 11/26/22 10:36 [facility] [id number]) Shoulder Strength Shoulder Manual Muscle Testing Right Flexion 3+ Fair+ Extension 3+ Fair+ Abduction (C5) 4- Good- External Rotation 3+ Fair+ Internal Rotation 3+ Fair+ Left Flexion 4 Good Extension 5 Normal Abduction (C5) 4+ Good+ External Rotation 4+ Good+ Internal Rotation 4+ Good+ Hip Strength Hip Manual Muscle Testing Right Flexion (L2) 3+ Fair+ Extension (S1) 4- Good- Abduction 4 Good Adduction 4 Good External Rotation 3+ Fair+ Internal Rotation 5 Normal Left Flexion (L2) 3+ Fair+ Extension (S1) 3+ Fair+ Abduction 4- Good- Adduction 3+ Fair+ External Rotation 3+ Fair+ Internal Rotation 3+ Fair+ Knee Strength Knee Manual Muscle Testing Right Flexion (S2) 5 Normal Extension (L3) 5 Normal Left Flexion (S2) 4 Good Extension (L3) 4 Good Ankle/Foot Strength Ankle and Foot Manual Muscle Testing Right Dorsiflexion (L4) 5 Normal Plantarflexion (S1) 5 Normal Comments cues to keep knee straight Left Dorsiflexion (L4) 5 Normal Plantarflexion (S1) 5 Normal Comments 20 heel raises B ; B pain in post thigh PT-OP-Q Treatments Start: 11/26/22 09:54 Freq: Status: Active Protocol: Document 01/23/23 13:50 [facility] (Rec: 01/23/23 14:35 [facility] [id number]) Manual Therapy Treatment Soft Tissue Mobilization UE Body Location R deltoid, subscap, lat, teres Mobilization Type Myofascial Release,Sustained Pressure Intensity/Depth Moderate hip Body Location B adductors Mobilization Type Rolling,Sustained Pressure Joint Mobilizations GH Joint R Direction post glide & translation, distraciton, lat and inf glide FM hip Joint B inf & hip on axis ER FM Self-Care/Home Management Treatment Education Other Education edu to try some gentle yoga like yoga w/genoveva bedtime routine to help stretch hips; Edu that tension can happen w/ holding patterns for LEs and could be related to bad bed. Edu using ice at home also as needed; verbal review exercise x8 min PT-OP-R Modalities Start: 11/26/22 09:54 Freq: Status: Active Protocol: Document 01/23/23 13:50 [facility] (Rec: 01/23/23 14:35 [facility] [id number]) Hot Pack/Cold Pack Treatment Cold Pack Location R shoulder & B hips Treatment Duration (minutes) 10 PT-OP-T Assessment and Plan Start: 11/26/22 09:54 Freq: Status: Active Protocol: Document 01/23/23 13:50 [facility] (Rec: 01/23/23 14:35 [facility] [id number]) Physical Therapy Assessment Goals balance Immigration Judge Goal (LTG) pt will be able to do SLS for 10 sec B LTG Duration 02/18/23 ROM Long-Term Goal (LTG) Pt will have R Shoulder AROM equal to L shoulder in order to allow for donning/doffing bra, reaching overhead, etc. LTG Duration 02/18/23 strength Short Term Goal (STG) Pt will be indep w/HEP STG Duration 01/11/23 Immigration Judge Goal (LTG) pt will score at least 3/5 on LPM and EFT and at least 4+/5 on BUE and BLE MMT to show improved stability in order to do her job and daily activities w/less pain. LTG Duration 02/18/23 work Immigration Judge Goal (LTG) Pt will be able to carry and pull the objects she needs without inc pain. LTG Duration 02/18/23 Assessment Summary Assessment Pt had improved hip ER & flex w/manual treatment. She cont to improve w/overhead motions but sitll has limits in post GH capsule limiting ROM Physical Therapy Plan Frequency and Duration Frequency of Treatment 2x/Week Duration of treatment (weeks) 12 Plan of Care Start Date 11/26/22 Plan of Care End Date 02/18/23 Next Visit Focus/Plan Next Note Type Treatment Note Next Visit Plan manual to soft tissue R shoulder, AC & SC mobs & GH, cont to work on Le mobility
--- NOTE | 2023-01-27 14:54 | PT.OTN ---
Current Diagnoses Other chronic pain (01/27/23) Pain in right shoulder (01/27/23) Pain in left thigh (01/27/23) Fibromyalgia (01/27/23) Difficulty in walking, not elsewhere classified (01/27/23) Abnormal posture (01/27/23) Weakness (01/27/23) Physical Therapy Treatment Note PT-OP-A Visit Information Start: 11/26/22 09:54 Freq: Status: Active Protocol: Document 01/27/23 13:48 [facility] (Rec: 01/27/23 14:54 [facility] [id number]) Out-Patient Physical Therapy Visit Information Visit Information Visit Type Treatment Note Visit Start Time 13:48 Visit Stop Time 14:40 Total Visit Minutes 52 Visit Number 16 Number of PSYCHIC READER Visits 0 PT-OP-B Current Condition Start: 11/26/22 09:54 Freq: Status: Active Protocol: Document 11/26/22 09:54 [facility] (Rec: 11/26/22 10:36 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 She has fibromyalgia so she has travelling pain. The things she can't do when things are behind her. She has trouble carrying things up narrow hallways and w/pulling things. It wasn't a one time thing but more of a gradual thing. Her xray didn't show much, but MRI showed 5 things that were moderate. 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 The ortho gave a cortizone shot that gave 3-4 weeks and got a different shot in a different location and when that block wore off, she had extreme pain for 18 hours but it didn't help. She went to OT w/Vivian at [facility]. She has been seeing a naturopathic doctor and has been doing prolo and feels like that is helping her. She used to lose her power when she was reaching overhead but that is better. Her main concern in ROM. She is doing a lot of stretches from the OT. Pt woke up 2 weeks ago w/ really bad L hip pain and it is keeping her up and night and it is radiating down L lat and ant down through lower leg. Pt has head pressure when she bends over that lasts until she sits back up. Has been having sleep issues but did do a sleep study. Treatment Goals Patient/Caregiver Goals Wants to be able to IR behind back so she can put on a bra. PT-OP-C Subjective Start: 11/26/22 09:54 Freq: Status: Active Protocol: Document 01/27/23 13:48 [facility] (Rec: 01/27/23 14:54 [facility] [id number]) OP-PT Subjective Patient Comments Patient Comments pt reports she still feels strain on R when turning R w/B rotations but more w/L rotation. Tight w/ER at 90 and w/IR behind back PT-OP-D Balance Start: 11/26/22 09:54 Freq: Status: Active Protocol: Document 11/26/22 09:54 [facility] (Rec: 11/26/22 10:36 [facility] [id number]) Balance Tests Single Limb Standing Single Limb- Right 5 sec Single Limb- Left 7 sec PT-OP-F Manual Assessment Start: 11/26/22 09:54 Freq: Status: Active Protocol: Document 11/26/22 09:54 [facility] (Rec: 11/26/22 10:36 [facility] [id number]) Manual Assessments Joint Mobility Assessment Joint Mobility Assessment equal greater troch and iliac crests B; sidebent to R, R shoulder lower than L, Humerus R is ant in glenoid PT-OP-G Mobility & Gait Start: 11/26/22 09:54 Freq: Status: Active Protocol: Document 11/26/22 09:54 [facility] (Rec: 11/26/22 10:36 [facility] [id number]) OP Gait Assessment Comments Gait Comments dec LUE swing, dec push off on LLE, excessive pelvis rotation PT-OP-J Posture/Palpation/Skin Start: 11/26/22 09:54 Freq: Status: Active Protocol: Document 11/26/22 09:54 [facility] (Rec: 11/26/22 10:36 [facility] [id number]) Posture Evaluation [facility] Postural Classification System [facility] Postural Classifications Posterior/Posterior Elbow Flexion Test 1 Lumbar Protective Mechanism Left AP 0 Lumbar Protective Mechanism Right AP 0 Lumbar Protective Mechanism Left PA 4 Lumbar Protective Mechanism Right PA 1 PT-OP-K Range of Motion Start: 11/26/22 09:54 Freq: Status: Active Protocol: Document 11/26/22 09:54 [facility] (Rec: 11/26/22 10:36 [facility] [id number]) Shoulder Goniometric Range of Motion Shoulder Right Active Flexion 132 Extension 50 Abduction 162 External Rotation at 90 degrees 93 Abduction External Rotation at 0 degrees Abduction 50 Internal Rotation Behind Back (text) T12 Comments pain abd coming down and pt went into flex when abd Left Active Flexion 156 Extension 70 Abduction 180 External Rotation at 90 degrees 95 Abduction External Rotation at 0 degrees Abduction 52 Internal Rotation Behind Back (text) T6 PT-OP-L Special Tests Start: 11/26/22 09:54 Freq: Status: Active Protocol: Document 11/26/22 09:54 [facility] (Rec: 11/26/22 10:36 [facility] [id number]) Special Tests Shoulder Special Tests Garcia Michael Impingement Test Results neg Neer Impingement Test Results neg Empty Can Test Results neg Hip Special Tests Bev's Test Results mild tightness L Slump Test Results neg B Straight Leg Raise Test Results positive limited B Neural Special Tests- Upper Body Median Nerve Tension Test Results positve R tension Ulnar Nerve Tension Test Results neg Radial Nerve Tension Test Results neg PT-OP-M Strength Start: 11/26/22 09:54 Freq: Status: Active Protocol: Document 11/26/22 09:54 [facility] (Rec: 11/26/22 10:36 [facility] [id number]) Shoulder Strength Shoulder Manual Muscle Testing Right Flexion 3+ Fair+ Extension 3+ Fair+ Abduction (C5) 4- Good- External Rotation 3+ Fair+ Internal Rotation 3+ Fair+ Left Flexion 4 Good Extension 5 Normal Abduction (C5) 4+ Good+ External Rotation 4+ Good+ Internal Rotation 4+ Good+ Hip Strength Hip Manual Muscle Testing Right Flexion (L2) 3+ Fair+ Extension (S1) 4- Good- Abduction 4 Good Adduction 4 Good External Rotation 3+ Fair+ Internal Rotation 5 Normal Left Flexion (L2) 3+ Fair+ Extension (S1) 3+ Fair+ Abduction 4- Good- Adduction 3+ Fair+ External Rotation 3+ Fair+ Internal Rotation 3+ Fair+ Knee Strength Knee Manual Muscle Testing Right Flexion (S2) 5 Normal Extension (L3) 5 Normal Left Flexion (S2) 4 Good Extension (L3) 4 Good Ankle/Foot Strength Ankle and Foot Manual Muscle Testing Right Dorsiflexion (L4) 5 Normal Plantarflexion (S1) 5 Normal Comments cues to keep knee straight Left Dorsiflexion (L4) 5 Normal Plantarflexion (S1) 5 Normal Comments 20 heel raises B ; B pain in post thigh PT-OP-Q Treatments Start: 11/26/22 09:54 Freq: Status: Active Protocol: Document 01/27/23 13:48 [facility] (Rec: 01/27/23 14:54 [id number] Manual Therapy Treatment Joint Mobilizations cervical Comments C1 UAP R FM; transverse L C4 and 6 FM thoracic Comments UPA R T1-3 FM transverse L FM ribs Comments PA R 1st rib & caudal FM; inf ribs 2 and 3 FM PT-OP-R Modalities Start: 11/26/22 09:54 Freq: Status: Active Protocol: Document 01/27/23 13:48 [facility] (Rec: 01/27/23 14:54 [id number]) Hot Pack/Cold Pack Treatment Cold Pack Location R shoulder & cervical Treatment Duration (minutes) 10 PT-OP-T Assessment and Plan Start: 11/26/22 09:54 Freq: Status: Active Protocol: Document 01/27/23 13:48 [facility] (Rec: 01/27/23 14:54 [id number]) Physical Therapy Assessment Goals balance Correction Goal (LTG) pt will be able to do SLS for 10 sec B LTG Duration 02/18/23 ROM Playground Aide Goal (LTG) Pt will have R Shoulder AROM equal to L shoulder in order to allow for donning/doffing bra, reaching overhead, etc. LTG Duration 02/18/23 strength Short Term Goal (STG) Pt will be indep w/HEP STG Duration 01/11/23 Correction Goal (LTG) pt will score at least 3/5 on LPM and EFT and at least 4+/5 on BUE and BLE MMT to show improved stability in order to do her job and daily activities w/less pain. LTG Duration 02/18/23 work Correction Goal (LTG) Pt will be able to carry and pull the objects she needs without inc pain. LTG Duration 02/18/23 Assessment Summary Assessment Pt had improved rotation of cervical region and improved IR of R shoulder. She cont to have a lot of R sideded tightness that does improve w/ manual Physical Therapy Plan Frequency and Duration Frequency of Treatment 2x/Week Duration of treatment (weeks) 12 Plan of Care Start Date 11/26/22 Plan of Care End Date 02/18/23 Next Visit Focus/Plan Next Note Type Treatment Note Next Visit Plan manual to soft tissue R shoulder, AC & SC mobs & GH, cont to work on Le mobility
--- NOTE | 2023-02-03 11:21 | PT.OTN ---
Current Diagnoses Other chronic pain (02/03/23) Pain in right shoulder (02/03/23) Pain in left thigh (02/03/23) Fibromyalgia (02/03/23) Difficulty in walking, not elsewhere classified (02/03/23) Abnormal posture (02/03/23) Weakness (02/03/23) Physical Therapy Treatment Note PT-OP-A Visit Information Start: 11/26/22 09:54 Freq: Status: Active Protocol: Document 02/03/23 10:33 [facility] (Rec: 02/03/23 11:20 [facility] [id number]) Out-Patient Physical Therapy Visit Information Visit Information Visit Type Progress Note Visit Start Time 10:38 Visit Stop Time 11:16 Total Visit Minutes 38 Visit Number 17 Number of LABOR MEDIATOR Visits 0 PT-OP-B Current Condition Start: 11/26/22 09:54 Freq: Status: Active Protocol: Document 11/26/22 09:54 [facility] (Rec: 11/26/22 10:36 [facility] [id number]) Current Condition History of Current Condition Onset Date 1-1.5 ear ago Current Complaints R shoulder pain & L hip and leg pain History of Current Condition Pt reports about 1-1.5 years ago, 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 She has fibromyalgia so she has travelling pain. The things she can't do when things are behind her. She has trouble carrying things up narrow hallways and w/pulling things. It wasn't a one time thing but more of a gradual thing. Her xray didn't show much, but MRI showed 5 things that were moderate. 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 The ortho gave a cortizone shot that gave 3-4 weeks and got a different shot in a different location and when that block wore off, she had extreme pain for 18 hours but it didn't help. She went to OT w/Vivian at [facility]. She has been seeing a naturopathic doctor and has been doing prolo and feels like that is helping her. She used to lose her power when she was reaching overhead but that is better. Her main concern in ROM. She is doing a lot of stretches from the OT. Pt woke up 2 weeks ago w/ really bad L hip pain and it is keeping her up and night and it is radiating down L lat and ant down through lower leg. Pt has head pressure when she bends over that lasts until she sits back up. Has been having sleep issues but did do a sleep study. Treatment Goals Patient/Caregiver Goals Wants to be able to IR behind back so she can put on a bra. PT-OP-C Subjective Start: 11/26/22 09:54 Freq: Status: Active Protocol: Document 02/03/23 10:33 [facility] (Rec: 02/03/23 11:20 [facility] [id number]) OP-PT Subjective Patient Comments Patient Comments Pt repots she has been doing okay. She went walking Friday. She feels her primary dysfunction is still R shoulder area in relation to neck PT-OP-D Balance Start: 11/26/22 09:54 Freq: Status: Active Protocol: Document 11/26/22 09:54 [facility] (Rec: 11/26/22 10:36 [facility] [id number]) Balance Tests Single Limb Standing Single Limb- Right 5 sec Single Limb- Left 7 sec PT-OP-F Manual Assessment Start: 11/26/22 09:54 Freq: Status: Active Protocol: Document 11/26/22 09:54 [facility] (Rec: 11/26/22 10:36 [facility] [id number]) Manual Assessments Joint Mobility Assessment Joint Mobility Assessment equal greater troch and iliac crests B; sidebent to R, R shoulder lower than L, Humerus R is ant in glenoid PT-OP-G Mobility & Gait Start: 11/26/22 09:54 Freq: Status: Active Protocol: Document 11/26/22 09:54 [facility] (Rec: 11/26/22 10:36 [facility] [id number]) OP Gait Assessment Comments Gait Comments dec LUE swing, dec push off on LLE, excessive pelvis rotation PT-OP-J Posture/Palpation/Skin Start: 11/26/22 09:54 Freq: Status: Active Protocol: Document 02/03/23 10:33 [facility] (Rec: 02/03/23 11:20 [facility] [id number]) Posture Evaluation [facility] Postural Classification System Elbow Flexion Test 2 Lumbar Protective Mechanism Left AP 2 Lumbar Protective Mechanism Right AP 1 Lumbar Protective Mechanism Left PA 2 Lumbar Protective Mechanism Right PA 2 PT-OP-K Range of Motion Start: 11/26/22 09:54 Freq: Status: Active Protocol: Document 02/03/23 10:33 [facility] (Rec: 02/03/23 11:20 [facility] [id number]) Cervical Spine Range of Motion Cervical Spine Active Degrees Flexion 62 Extension 50 Rotation Left 55 Rotation Right 50 Lateral Flexion Left 29 Lateral Flexion Right 32 Comments pain w/r rot, L rot tight, ext pain post;tight B SB Shoulder Goniometric Range of Motion Shoulder Right Active Flexion 153 Extension 51 Abduction 158 External Rotation at 90 degrees 95 Abduction External Rotation at 0 degrees Abduction 69 Internal Rotation Behind Back (text) T10 Comments pain end range of motion or tightness Left Active Flexion 156 Extension 70 Abduction 180 External Rotation at 90 degrees 95 Abduction External Rotation at 0 degrees Abduction 52 Internal Rotation Behind Back (text) T6 PT-OP-L Special Tests Start: 11/26/22 09:54 Freq: Status: Active Protocol: Document 11/26/22 09:54 [facility] (Rec: 11/26/22 10:36 [facility] [id number]) Special Tests Shoulder Special Tests Garcia Michael Impingement Test Results neg Neer Impingement Test Results neg Empty Can Test Results neg Hip Special Tests Bev's Test Results mild tightness L Slump Test Results neg B Straight Leg Raise Test Results positive limited B Neural Special Tests- Upper Body Median Nerve Tension Test Results positve R tension Ulnar Nerve Tension Test Results neg Radial Nerve Tension Test Results neg PT-OP-M Strength Start: 11/26/22 09:54 Freq: Status: Active Protocol: Document 02/03/23 10:33 [facility] (Rec: 02/03/23 11:20 [facility] [id number]) Shoulder Strength Shoulder Manual Muscle Testing Right Flexion 4+ Good+ Extension 4+ Good+ Abduction (C5) 4+ Good+ External Rotation 4+ Good+ Internal Rotation 4+ Good+ Left Flexion 5 Normal Extension 5 Normal Abduction (C5) 5 Normal External Rotation 5 Normal Internal Rotation 5 Normal Hip Strength Hip Manual Muscle Testing Right Flexion (L2) 4+ Good+ Extension (S1) 4- Good- Abduction 4 Good Adduction 5 Normal External Rotation 3+ Fair+ Internal Rotation 5 Normal Left Flexion (L2) 4 Good Extension (S1) 4- Good- Abduction 4 Good Adduction 5 Normal External Rotation 4- Good- Internal Rotation 4- Good- Knee Strength Knee Manual Muscle Testing Right Flexion (S2) 5 Normal Extension (L3) 5 Normal Left Flexion (S2) 5 Normal Extension (L3) 4+ Good+ Ankle/Foot Strength Ankle and Foot Manual Muscle Testing Right Dorsiflexion (L4) 5 Normal Plantarflexion (S1) 5 Normal Inversion 5 Normal Eversion (S1) 5 Normal Comments cues to keep knee straight R>L Left Dorsiflexion (L4) 5 Normal Plantarflexion (S1) 5 Normal Inversion 5 Normal Eversion (S1) 5 Normal Comments 20 heel raises B ; fatigue in calf; sore post thigh PT-OP-Q Treatments Start: 11/26/22 09:54 Freq: Status: Active Protocol: Document 02/03/23 10:33 [facility] (Rec: 02/03/23 11:20 [id number] Manual Therapy Treatment Soft Tissue Mobilization Superior Body Location R UT & LS FM Mobilization Type Rolling Intensity/Depth Moderate Comments supine w/cervical rot and breathing Joint Mobilizations sternum Comments R AP manubrium FM ; R mid sternum FM AP; xiphoid L SB glide FM ribs Comments PA R 1st rib & caudal FM; inf ribs 2 and 3 FM; AP rib 2 FM PT-OP-R Modalities Start: 11/26/22 09:54 Freq: Status: Active Protocol: Document 01/27/23 13:48 [facility] (Rec: 01/27/23 14:54 [id number] Hot Pack/Cold Pack Treatment Cold Pack Location R shoulder & cervical Treatment Duration (minutes) 10 PT-OP-T Assessment and Plan Start: 11/26/22 09:54 Freq: Status: Active Protocol: Document 02/03/23 10:33 [facility] (Rec: 02/03/23 11:20 [facility] [id number]) Physical Therapy Assessment Other Concerns Barriers to Rehabilitation fibromyalgia & chronic pain & job 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 Pt to try to dec towards 1x/week as able to self manage symptoms Goals balance Fdc Goal (LTG) pt will be able to do SLS for 10 sec B 02/03:19 sec R; 12 sec L but lat hip shear and UE flailing- goal met advance to 10 sec SLS w/hands at hips and no lat hip shear LTG Duration 7/10 ROM Fdc Goal (LTG) Pt will have R Shoulder AROM equal to L shoulder in order to allow for donning/doffing bra, reaching overhead, etc. 02/03-much improved but still limited -still can't get bra on/off post but can lift ahead LTG Duration 04/28/23 strength Short Term Goal (STG) Pt will be indep w/HEP STG Duration achieved advancing as able Head Girls Golf Coach Goal (LTG) pt will score at least 3/5 on LPM and EFT and at least 4+/5 on BUE and BLE MMT to show improved stability in order to do her job and daily activities w/less pain. 02/03-goal met w/UE strength; LE strength still limited and EFT & LPM LTG Duration 04/28 work Fdc Goal (LTG) Pt will be able to carry and pull the objects she needs without inc pain. 02/03-has been limiting; still painful LTG Duration 04/28/23 Assessment Summary Assessment Pt is making great gains w/ balance, LE and UE and core stabiltiy along w/R shoulder ROM but is still limited in R shoulder ROM, strength and pain.S eh had dec core stabiltiy and LE stability also and still has pain w/ functional activiites. She would benefit from cont PT to work w/R shoulder pain, neck pain, back and LE pain as pt has chronic pain, she will likely attend PT for longer period d/t fibromyalgia diagnosis making progress more difficult and slow. Physical Therapy Plan Frequency and Duration Frequency of Treatment 2x/Week Duration of treatment (weeks) 12 Plan of Care Start Date 02/03/23 Plan of Care End Date 04/28/23 Therapeutic Interventions Therapeutic Interventions Balance Training,Gait Training ,Home Exercise Program,Joint Mobilizations,Manual Therapy, Neuromuscular Re-education, Orthotic/Prosthetic Management ,Patient/Caregiver Education, Self-Care/Home Management,Soft Tissue Mobilization,Taping, Therapeutic Activities, Therapeutic Exercises Modalities Cold Pack/Ice Massage,Electric Stimulation,Hot Packs, Infrared Therapy,Iontophoresis ,Ultrasound Other Therapeutic Interventions ionto dexomethosone Next Visit Focus/Plan Next Note Type Treatment Note Next Visit Plan manual to soft tissue R shoulder, AC & SC mobs & GH, ribcage mobility; cont to work on Le mobility
--- NOTE | 2023-02-03 11:21 | PT.OPPOC ---
Physical, Occupational & Speech Therapy At [facility] Current Diagnoses Other chronic pain (02/03/23) Pain in right shoulder (02/03/23) Pain in left thigh (02/03/23) Fibromyalgia (02/03/23) Difficulty in walking, not elsewhere classified (02/03/23) Abnormal posture (02/03/23) Weakness (02/03/23) Visit Care Team Role Provider Type Jenny Manzo MD Family Provider Physician Specialty: Gynecology CONSTRUCTION TECH Obstetrics Address: [address] [place] [address], [id number] Email: [email or web address] Quang Webb MD Attending Provider Physician Primary Care Provider Referring Provider Specialty: Family Practice Address: [address] [place] [address], [facility] Email: [email or web address] Plan Of Care PT-OP-T Assessment and Plan Start: 11/26/22 09:54 Freq: Status: Active Protocol: Document 02/03/23 10:33 [facility] (Rec: 02/03/23 11:20 [facility] [id number]) Physical Therapy Assessment Other Concerns Barriers to Rehabilitation fibromyalgia & chronic pain & job 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 Pt to try to dec towards 1x/week as able to self manage symptoms Goals balance Longterm Goal (LTG) pt will be able to do SLS for 10 sec B 02/03:19 sec R; 12 sec L but lat hip shear and UE flailing- goal met advance to 10 sec SLS w/hands at hips and no lat hip shear LTG Duration 04/28 ROM Longterm Goal (LTG) Pt will have R Shoulder AROM equal to L shoulder in order to allow for donning/doffing bra, reaching overhead, etc. 02/03-much improved but still limited -still can't get bra on/off post but can lift ahead LTG Duration 04/28/23 strength Short Term Goal (STG) Pt will be indep w/HEP STG Duration achieved advancing as able Weatherization Operations Manager Goal (LTG) pt will score at least 3/5 on LPM and EFT and at least 4+/5 on BUE and BLE MMT to show improved stability in order to do her job and daily activities w/less pain. 02/03-goal met w/UE strength; LE strength still limited and EFT & LPM LTG Duration 04/28 work Longterm Goal (LTG) Pt will be able to carry and pull the objects she needs without inc pain. 02/03-has been limiting; still painful LTG Duration 04/28/23 Assessment Summary Assessment Pt is making great gains w/ balance, LE and UE and core stabiltiy along w/R shoulder ROM but is still limited in R shoulder ROM, strength and pain.S eh had dec core stabiltiy and LE stability also and still has pain w/ functional activiites. She would benefit from cont PT to work w/R shoulder pain, neck pain, back and LE pain as pt has chronic pain, she will likely attend PT for longer period d/t fibromyalgia diagnosis making progress more difficult and slow. Physical Therapy Plan Frequency and Duration Frequency of Treatment 2x/Week Duration of treatment (weeks) 12 Plan of Care Start Date 02/03/23 Plan of Care End Date 04/28/23 Therapeutic Interventions Therapeutic Interventions Balance Training,Gait Training ,Home Exercise Program,Joint Mobilizations,Manual Therapy, Neuromuscular Re-education, Orthotic/Prosthetic Management ,Patient/Caregiver Education, Self-Care/Home Management,Soft Tissue Mobilization,Taping, Therapeutic Activities, Therapeutic Exercises Modalities Cold Pack/Ice Massage,Electric Stimulation,Hot Packs, Infrared Therapy,Iontophoresis ,Ultrasound Other Therapeutic Interventions ionto dexomethosone Next Visit Focus/Plan Next Note Type Treatment Note Next Visit Plan manual to soft tissue R shoulder, AC & SC mobs & GH, ribcage mobility; cont to work on Le mobility Plan of Care Dates Plan of Care Start Date 02/03/23 Plan of Care End Date 04/28/23 Electronically Signed by: China Aguirre, PT 02/03/23 5631 If you are in agreement with this Plan of Care, please return a signed and dated copy. I have reviewed this Plan of Care and certify that the skilled therapy services above are required to meet the patient?s needs. Physician Signature Date Printed Name and Credentials Clinical Instructor Signature Printed Name and Credentials
--- NOTE | 2023-02-06 13:39 | PT.OTN ---
Current Diagnoses Other chronic pain (02/06/23) Pain in right shoulder (02/06/23) Pain in left thigh (02/06/23) Fibromyalgia (02/06/23) Difficulty in walking, not elsewhere classified (02/06/23) Abnormal posture (02/06/23) Weakness (02/06/23) Physical Therapy Treatment Note PT-OP-A Visit Information Start: 11/26/22 09:54 Freq: Status: Active Protocol: Document 02/06/23 13:22 [facility] (Rec: 02/06/23 13:39 [facility] [id number]) Out-Patient Physical Therapy Visit Information Visit Information Visit Type Treatment Note Visit Start Time 09:53 Visit Stop Time 10:32 Total Visit Minutes 39 Visit Number 18 Number of EXECUTIVE CHEF ASSISTANT Visits 0 PT-OP-B Current Condition Start: 11/26/22 09:54 Freq: Status: Active Protocol: Document 11/26/22 09:54 [facility] (Rec: 11/26/22 10:36 [facility] [id number]) Current Condition History of Current Condition Onset Date 1-1.5 ear ago Current Complaints R shoulder pain & L hip and leg pain History of Current Condition Pt reports about 1-1.5 years ago, 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 She has fibromyalgia so she has travelling pain. The things she can't do when things are behind her. She has trouble carrying things up narrow hallways and w/pulling things. It wasn't a one time thing but more of a gradual thing. Her xray didn't show much, but MRI showed 5 things that were moderate. 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 The ortho gave a cortizone shot that gave 3-4 weeks and got a different shot in a different location and when that block wore off, she had extreme pain for 18 hours but it didn't help. She went to OT w/Vivian at [facility]. She has been seeing a naturopathic doctor and has been doing prolo and feels like that is helping her. She used to lose her power when she was reaching overhead but that is better. Her main concern in ROM. She is doing a lot of stretches from the OT. Pt woke up 2 weeks ago w/ really bad L hip pain and it is keeping her up and night and it is radiating down L lat and ant down through lower leg. Pt has head pressure when she bends over that lasts until she sits back up. Has been having sleep issues but did do a sleep study. Treatment Goals Patient/Caregiver Goals Wants to be able to IR behind back so she can put on a bra. PT-OP-C Subjective Start: 11/26/22 09:54 Freq: Status: Active Protocol: Document 02/06/23 13:22 [facility] (Rec: 02/06/23 13:39 [facility] [id number]) OP-PT Subjective Patient Comments Patient Comments Pt reports she feels like each session is helping. Ears are still clogged PT-OP-D Balance Start: 11/26/22 09:54 Freq: Status: Active Protocol: Document 11/26/22 09:54 [facility] (Rec: 11/26/22 10:36 [facility] [id number]) Balance Tests Single Limb Standing Single Limb- Right 5 sec Single Limb- Left 7 sec PT-OP-F Manual Assessment Start: 11/26/22 09:54 Freq: Status: Active Protocol: Document 11/26/22 09:54 [facility] (Rec: 11/26/22 10:36 [facility] [id number]) Manual Assessments Joint Mobility Assessment Joint Mobility Assessment equal greater troch and iliac crests B; sidebent to R, R shoulder lower than L, Humerus R is ant in glenoid PT-OP-G Mobility & Gait Start: 11/26/22 09:54 Freq: Status: Active Protocol: Document 11/26/22 09:54 [facility] (Rec: 11/26/22 10:36 [facility] [id number]) OP Gait Assessment Comments Gait Comments dec LUE swing, dec push off on LLE, excessive pelvis rotation PT-OP-J Posture/Palpation/Skin Start: 11/26/22 09:54 Freq: Status: Active Protocol: Document 02/03/23 10:33 [facility] (Rec: 02/03/23 11:20 [facility] [id number]) Posture Evaluation [place] Postural Classification System Elbow Flexion Test 2 Lumbar Protective Mechanism Left AP 2 Lumbar Protective Mechanism Right AP 1 Lumbar Protective Mechanism Left PA 2 Lumbar Protective Mechanism Right PA 2 PT-OP-K Range of Motion Start: 11/26/22 09:54 Freq: Status: Active Protocol: Document 02/03/23 10:33 [facility] (Rec: 02/03/23 11:20 [facility] [id number]) Cervical Spine Range of Motion Cervical Spine Active Degrees Flexion 62 Extension 50 Rotation Left 55 Rotation Right 50 Lateral Flexion Left 29 Lateral Flexion Right 32 Comments pain w/r rot, L rot tight, ext pain post;tight B SB Shoulder Goniometric Range of Motion Shoulder Right Active Flexion 153 Extension 51 Abduction 158 External Rotation at 90 degrees 95 Abduction External Rotation at 0 degrees Abduction 69 Internal Rotation Behind Back (text) T10 Comments pain end range of motion or tightness Left Active Flexion 156 Extension 70 Abduction 180 External Rotation at 90 degrees 95 Abduction External Rotation at 0 degrees Abduction 52 Internal Rotation Behind Back (text) T6 PT-OP-L Special Tests Start: 11/26/22 09:54 Freq: Status: Active Protocol: Document 11/26/22 09:54 [facility] (Rec: 11/26/22 10:36 [facility] [id number]) Special Tests Shoulder Special Tests Garcia Michael Impingement Test Results neg Neer Impingement Test Results neg Empty Can Test Results neg Hip Special Tests Bev's Test Results mild tightness L Slump Test Results neg B Straight Leg Raise Test Results positive limited B Neural Special Tests- Upper Body Median Nerve Tension Test Results positve R tension Ulnar Nerve Tension Test Results neg Radial Nerve Tension Test Results neg PT-OP-M Strength Start: 11/26/22 09:54 Freq: Status: Active Protocol: Document 02/03/23 10:33 [facility] (Rec: 02/03/23 11:20 [facility] [id number]) Shoulder Strength Shoulder Manual Muscle Testing Right Flexion 4+ Good+ Extension 4+ Good+ Abduction (C5) 4+ Good+ External Rotation 4+ Good+ Internal Rotation 4+ Good+ Left Flexion 5 Normal Extension 5 Normal Abduction (C5) 5 Normal External Rotation 5 Normal Internal Rotation 5 Normal Hip Strength Hip Manual Muscle Testing Right Flexion (L2) 4+ Good+ Extension (S1) 4- Good- Abduction 4 Good Adduction 5 Normal External Rotation 3+ Fair+ Internal Rotation 5 Normal Left Flexion (L2) 4 Good Extension (S1) 4- Good- Abduction 4 Good Adduction 5 Normal External Rotation 4- Good- Internal Rotation 4- Good- Knee Strength Knee Manual Muscle Testing Right Flexion (S2) 5 Normal Extension (L3) 5 Normal Left Flexion (S2) 5 Normal Extension (L3) 4+ Good+ Ankle/Foot Strength Ankle and Foot Manual Muscle Testing Right Dorsiflexion (L4) 5 Normal Plantarflexion (S1) 5 Normal Inversion 5 Normal Eversion (S1) 5 Normal Comments cues to keep knee straight R>L Left Dorsiflexion (L4) 5 Normal Plantarflexion (S1) 5 Normal Inversion 5 Normal Eversion (S1) 5 Normal Comments 20 heel raises B ; fatigue in calf; sore post thigh PT-OP-Q Treatments Start: 11/26/22 09:54 Freq: Status: Active Protocol: Document 02/06/23 13:22 [facility] (Rec: 02/06/23 13:39 [facility] [id number]) Manual Therapy Treatment Joint Mobilizations cranium Reps/Duration FM Comments temporal-occipital distraction R occiptial distraction from R lambdoid suture caudal coronal R>L PA temporoparietal inf/cudal R matoid R AP parietal ant R zygomatic R inf & rotations PT-OP-R Modalities Start: 11/26/22 09:54 Freq: Status: Active Protocol: Document 01/27/23 13:48 [facility] (Rec: 01/27/23 14:54 [facility] [id number]) Hot Pack/Cold Pack Treatment Cold Pack Location R shoulder & cervical Treatment Duration (minutes) 10 PT-OP-T Assessment and Plan Start: 11/26/22 09:54 Freq: Status: Active Protocol: Document 02/06/23 13:22 [facility] (Rec: 02/06/23 13:39 [facility] [id number]) Physical Therapy Assessment Goals balance Jail Goal (LTG) pt will be able to do SLS for 10 sec B 02/03:19 sec R; 12 sec L but lat hip shear and UE flailing- goal met advance to 10 sec SLS w/hands at hips and no lat hip shear LTG Duration 04/28 ROM Jail Goal (LTG) Pt will have R Shoulder AROM equal to L shoulder in order to allow for donning/doffing bra, reaching overhead, etc. 02/03-much improved but still limited -still can't get bra on/off post but can lift ahead LTG Duration 04/28/23 strength Short Term Goal (STG) Pt will be indep w/HEP STG Duration achieved advancing as able Care Administrative Tech Goal (LTG) pt will score at least 3/5 on LPM and EFT and at least 4+/5 on BUE and BLE MMT to show improved stability in order to do her job and daily activities w/less pain. 02/03-goal met w/UE strength; LE strength still limited and EFT & LPM LTG Duration 04/28 work Jail Goal (LTG) Pt will be able to carry and pull the objects she needs without inc pain. 02/03-has been limiting; still painful LTG Duration 04/28/23 Assessment Summary Assessment Pt started w/passive abd to only to 90 before shoulder elevates which improved to 115 after cranium work along w/ improved neck rotation likely d/t pt dural tension. Physical Therapy Plan Frequency and Duration Frequency of Treatment 2x/Week Duration of treatment (weeks) 12 Plan of Care Start Date 02/03/23 Plan of Care End Date 04/28/23 Next Visit Focus/Plan Next Note Type Treatment Note Next Visit Plan manual to soft tissue R shoulder, AC & SC mobs & GH, ribcage mobility; cont to work on Le mobility
--- NOTE | 2023-02-11 15:21 | PT.OTN ---
Current Diagnoses Other chronic pain (02/11/23) Pain in right shoulder (02/11/23) Pain in left thigh (02/11/23) Fibromyalgia (02/11/23) Difficulty in walking, not elsewhere classified (02/11/23) Abnormal posture (02/11/23) Weakness (02/11/23) Physical Therapy Treatment Note PT-OP-A Visit Information Start: 11/26/22 09:54 Freq: Status: Active Protocol: Document 02/11/23 14:36 [facility] (Rec: 02/11/23 15:21 [facility] [id number]) Out-Patient Physical Therapy Visit Information Visit Information Visit Type Treatment Note Visit Start Time 14:36 Visit Stop Time 15:26 Total Visit Minutes 50 Visit Number 19 Number of PROGRAM MANAGEMENT ANALYST Visits 0 PT-OP-B Current Condition Start: 11/26/22 09:54 Freq: Status: Active Protocol: Document 11/26/22 09:54 [facility] (Rec: 11/26/22 10:36 [facility] [id number]) Current Condition History of Current Condition Onset Date 1-1.5 ear ago Current Complaints R shoulder pain & L hip and leg pain History of Current Condition Pt reports about 1-1.5 years ago, 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 She has fibromyalgia so she has travelling pain. The things she can't do when things are behind her. She has trouble carrying things up narrow hallways and w/pulling things. It wasn't a one time thing but more of a gradual thing. Her xray didn't show much, but MRI showed 5 things that were moderate. 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 The ortho gave a cortizone shot that gave 3-4 weeks and got a different shot in a different location and when that block wore off, she had extreme pain for 18 hours but it didn't help. She went to OT w/Vivian at [facility]. She has been seeing a naturopathic doctor and has been doing prolo and feels like that is helping her. She used to lose her power when she was reaching overhead but that is better. Her main concern in ROM. She is doing a lot of stretches from the OT. Pt woke up 2 weeks ago w/ really bad L hip pain and it is keeping her up and night and it is radiating down L lat and ant down through lower leg. Pt has head pressure when she bends over that lasts until she sits back up. Has been having sleep issues but did do a sleep study. Treatment Goals Patient/Caregiver Goals Wants to be able to IR behind back so she can put on a bra. PT-OP-C Subjective Start: 11/26/22 09:54 Freq: Status: Active Protocol: Document 02/11/23 14:36 [facility] (Rec: 02/11/23 15:21 [facility] [id number]) OP-PT Subjective Patient Comments Patient Comments Pt reports she scheduled a craniosacral appt in a couple weeks. Pt reports she has been walking and its been okay. She did walk on treadmill yesterday and felt dizzy and nauseas after. She reports it felt like motion sickness. PT-OP-D Balance Start: 11/26/22 09:54 Freq: Status: Active Protocol: Document 11/26/22 09:54 [facility] (Rec: 11/26/22 10:36 [facility] [id number]) Balance Tests Single Limb Standing Single Limb- Right 5 sec Single Limb- Left 7 sec PT-OP-F Manual Assessment Start: 11/26/22 09:54 Freq: Status: Active Protocol: Document 11/26/22 09:54 [facility] (Rec: 11/26/22 10:36 [facility] [id number]) Manual Assessments Joint Mobility Assessment Joint Mobility Assessment equal greater troch and iliac crests B; sidebent to R, R shoulder lower than L, Humerus R is ant in glenoid PT-OP-G Mobility & Gait Start: 11/26/22 09:54 Freq: Status: Active Protocol: Document 11/26/22 09:54 [facility] (Rec: 11/26/22 10:36 [id number] OP Gait Assessment Comments Gait Comments dec LUE swing, dec push off on LLE, excessive pelvis rotation PT-OP-J Posture/Palpation/Skin Start: 11/26/22 09:54 Freq: Status: Active Protocol: Document 02/03/23 10:33 [facility] (Rec: 02/03/23 11:20 [facility] [id number]) Posture Evaluation [facility] Postural Classification System Elbow Flexion Test 2 Lumbar Protective Mechanism Left AP 2 Lumbar Protective Mechanism Right AP 1 Lumbar Protective Mechanism Left PA 2 Lumbar Protective Mechanism Right PA 2 PT-OP-K Range of Motion Start: 11/26/22 09:54 Freq: Status: Active Protocol: Document 02/03/23 10:33 [facility] (Rec: 02/03/23 11:20 [facility] [id number]) Cervical Spine Range of Motion Cervical Spine Active Degrees Flexion 62 Extension 50 Rotation Left 55 Rotation Right 50 Lateral Flexion Left 29 Lateral Flexion Right 32 Comments pain w/r rot, L rot tight, ext pain post;tight B SB Shoulder Goniometric Range of Motion Shoulder Right Active Flexion 153 Extension 51 Abduction 158 External Rotation at 90 degrees 95 Abduction External Rotation at 0 degrees Abduction 69 Internal Rotation Behind Back (text) T10 Comments pain end range of motion or tightness Left Active Flexion 156 Extension 70 Abduction 180 External Rotation at 90 degrees 95 Abduction External Rotation at 0 degrees Abduction 52 Internal Rotation Behind Back (text) T6 PT-OP-L Special Tests Start: 11/26/22 09:54 Freq: Status: Active Protocol: Document 11/26/22 09:54 [facility] (Rec: 11/26/22 10:36 [facility] [id number]) Special Tests Shoulder Special Tests Garcia Michael Impingement Test Results neg Neer Impingement Test Results neg Empty Can Test Results neg Hip Special Tests Bev's Test Results mild tightness L Slump Test Results neg B Straight Leg Raise Test Results positive limited B Neural Special Tests- Upper Body Median Nerve Tension Test Results positve R tension Ulnar Nerve Tension Test Results neg Radial Nerve Tension Test Results neg PT-OP-M Strength Start: 11/26/22 09:54 Freq: Status: Active Protocol: Document 02/03/23 10:33 [facility] (Rec: 02/03/23 11:20 [facility] [id number]) Shoulder Strength Shoulder Manual Muscle Testing Right Flexion 4+ Good+ Extension 4+ Good+ Abduction (C5) 4+ Good+ External Rotation 4+ Good+ Internal Rotation 4+ Good+ Left Flexion 5 Normal Extension 5 Normal Abduction (C5) 5 Normal External Rotation 5 Normal Internal Rotation 5 Normal Hip Strength Hip Manual Muscle Testing Right Flexion (L2) 4+ Good+ Extension (S1) 4- Good- Abduction 4 Good Adduction 5 Normal External Rotation 3+ Fair+ Internal Rotation 5 Normal Left Flexion (L2) 4 Good Extension (S1) 4- Good- Abduction 4 Good Adduction 5 Normal External Rotation 4- Good- Internal Rotation 4- Good- Knee Strength Knee Manual Muscle Testing Right Flexion (S2) 5 Normal Extension (L3) 5 Normal Left Flexion (S2) 5 Normal Extension (L3) 4+ Good+ Ankle/Foot Strength Ankle and Foot Manual Muscle Testing Right Dorsiflexion (L4) 5 Normal Plantarflexion (S1) 5 Normal Inversion 5 Normal Eversion (S1) 5 Normal Comments cues to keep knee straight R>L Left Dorsiflexion (L4) 5 Normal Plantarflexion (S1) 5 Normal Inversion 5 Normal Eversion (S1) 5 Normal Comments 20 heel raises B ; fatigue in calf; sore post thigh PT-OP-Q Treatments Start: 11/26/22 09:54 Freq: Status: Active Protocol: Document 02/11/23 14:36 [facility] (Rec: 02/11/23 15:21 [facility] [id number]) Manual Therapy Treatment Soft Tissue Mobilization UE Body Location R deltoid, subscap, lat, teres , biceps Mobilization Type Myofascial Release,Sustained Pressure Intensity/Depth Moderate Comments w/IR & abd Joint Mobilizations thoracic Comments T1-3 AP FM GH Joint R post FM ribs Comments caudal L ribs 1-3 FM AC Joint B ant clavicle FM PT-OP-R Modalities Start: 11/26/22 09:54 Freq: Status: Active Protocol: Document 02/11/23 14:36 [facility] (Rec: 02/11/23 15:21 [facility] [id number]) Hot Pack/Cold Pack Treatment Cold Pack Location R shoulder Treatment Duration (minutes) 10 PT-OP-T Assessment and Plan Start: 11/26/22 09:54 Freq: Status: Active Protocol: Document 02/11/23 14:36 [facility] (Rec: 02/11/23 15:21 [facility] [id number]) Physical Therapy Assessment Goals balance Dinkey Operator Slate Goal (LTG) pt will be able to do SLS for 10 sec B 02/03:19 sec R; 12 sec L but lat hip shear and UE flailing- goal met advance to 10 sec SLS w/hands at hips and no lat hip shear LTG Duration 7/10 ROM Dinkey Operator Slate Goal (LTG) Pt will have R Shoulder AROM equal to L shoulder in order to allow for donning/doffing bra, reaching overhead, etc. 02/03-much improved but still limited -still can't get bra on/off post but can lift ahead LTG Duration 04/28/23 strength Short Term Goal (STG) Pt will be indep w/HEP STG Duration achieved advancing as able Halfway Goal (LTG) pt will score at least 3/5 on LPM and EFT and at least 4+/5 on BUE and BLE MMT to show improved stability in order to do her job and daily activities w/less pain. 02/03-goal met w/UE strength; LE strength still limited and EFT & LPM LTG Duration 04/28 work Halfway Goal (LTG) Pt will be able to carry and pull the objects she needs without inc pain. 02/03-has been limiting; still painful LTG Duration 04/28/23 Assessment Summary Assessment Pt started w/Passive abd of 90 and improved to about 120 after manual. She also improved SB B w/manual treatment and IR of R shoulder Physical Therapy Plan Frequency and Duration Frequency of Treatment 2x/Week Duration of treatment (weeks) 12 Plan of Care Start Date 02/03/23 Plan of Care End Date 04/28/23 Next Visit Focus/Plan Next Note Type Treatment Note Next Visit Plan manual to soft tissue R shoulder, AC & SC mobs & GH, ribcage mobility; cont to work on Le mobility
--- NOTE | 2023-02-17 14:43 | PT.OTN ---
Current Diagnoses Other chronic pain (02/17/23) Pain in right shoulder (02/17/23) Pain in left thigh (02/17/23) Fibromyalgia (02/17/23) Difficulty in walking, not elsewhere classified (02/17/23) Abnormal posture (02/17/23) Weakness (02/17/23) Physical Therapy Treatment Note PT-OP-A Visit Information Start: 11/26/22 09:54 Freq: Status: Active Protocol: Document 02/17/23 13:36 [facility] (Rec: 02/17/23 14:42 [facility] [id number]) Out-Patient Physical Therapy Visit Information Visit Information Visit Type Treatment Note Visit Start Time 13:36 Visit Stop Time 14:26 Total Visit Minutes 50 Visit Number 20 Number of RESUME WRITER Visits 0 PT-OP-B Current Condition Start: 11/26/22 09:54 Freq: Status: Active Protocol: Document 11/26/22 09:54 [facility] (Rec: 11/26/22 10:36 [facility] [id number]) Current Condition History of Current Condition Onset Date 1-1.5 ear ago Current Complaints R shoulder pain & L hip and leg pain History of Current Condition Pt reports about 1-1.5 years ago, 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 She has fibromyalgia so she has travelling pain. The things she can't do when things are behind her. She has trouble carrying things up narrow hallways and w/pulling things. It wasn't a one time thing but more of a gradual thing. Her xray didn't show much, but MRI showed 5 things that were moderate. 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 The ortho gave a cortizone shot that gave 3-4 weeks and got a different shot in a different location and when that block wore off, she had extreme pain for 18 hours but it didn't help. She went to OT w/Vivian at [facility]. She has been seeing a naturopathic doctor and has been doing prolo and feels like that is helping her. She used to lose her power when she was reaching overhead but that is better. Her main concern in ROM. She is doing a lot of stretches from the OT. Pt woke up 2 weeks ago w/ really bad L hip pain and it is keeping her up and night and it is radiating down L lat and ant down through lower leg. Pt has head pressure when she bends over that lasts until she sits back up. Has been having sleep issues but did do a sleep study. Treatment Goals Patient/Caregiver Goals Wants to be able to IR behind back so she can put on a bra. PT-OP-C Subjective Start: 11/26/22 09:54 Freq: Status: Active Protocol: Document 02/17/23 13:36 [facility] (Rec: 02/17/23 14:42 [facility] [id number]) OP-PT Subjective Patient Comments Patient Comments Pt feels like the work that has been done is helping. She had one day the neck felt restricted but not as bad today PT-OP-D Balance Start: 11/26/22 09:54 Freq: Status: Active Protocol: Document 11/26/22 09:54 [facility] (Rec: 11/26/22 10:36 [facility] [id number]) Balance Tests Single Limb Standing Single Limb- Right 5 sec Single Limb- Left 7 sec PT-OP-F Manual Assessment Start: 11/26/22 09:54 Freq: Status: Active Protocol: Document 11/26/22 09:54 [facility] (Rec: 11/26/22 10:36 [facility] [id number]) Manual Assessments Joint Mobility Assessment Joint Mobility Assessment equal greater troch and iliac crests B; sidebent to R, R shoulder lower than L, Humerus R is ant in glenoid PT-OP-G Mobility & Gait Start: 11/26/22 09:54 Freq: Status: Active Protocol: Document 11/26/22 09:54 [facility] (Rec: 11/26/22 10:36 [facility] [id number]) OP Gait Assessment Comments Gait Comments dec LUE swing, dec push off on LLE, excessive pelvis rotation PT-OP-J Posture/Palpation/Skin Start: 11/26/22 09:54 Freq: Status: Active Protocol: Document 02/03/23 10:33 [facility] (Rec: 02/03/23 11:20 [facility] [id number]) Posture Evaluation Roldan Postural Classification System Elbow Flexion Test 2 Lumbar Protective Mechanism Left AP 2 Lumbar Protective Mechanism Right AP 1 Lumbar Protective Mechanism Left PA 2 Lumbar Protective Mechanism Right PA 2 PT-OP-K Range of Motion Start: 11/26/22 09:54 Freq: Status: Active Protocol: Document 02/03/23 10:33 [facility] (Rec: 02/03/23 11:20 [facility] [id number]) Cervical Spine Range of Motion Cervical Spine Active Degrees Flexion 62 Extension 50 Rotation Left 55 Rotation Right 50 Lateral Flexion Left 29 Lateral Flexion Right 32 Comments pain w/r rot, L rot tight, ext pain post;tight B SB Shoulder Goniometric Range of Motion Shoulder Right Active Flexion 153 Extension 51 Abduction 158 External Rotation at 90 degrees 95 Abduction External Rotation at 0 degrees Abduction 69 Internal Rotation Behind Back (text) T10 Comments pain end range of motion or tightness Left Active Flexion 156 Extension 70 Abduction 180 External Rotation at 90 degrees 95 Abduction External Rotation at 0 degrees Abduction 52 Internal Rotation Behind Back (text) T6 PT-OP-L Special Tests Start: 11/26/22 09:54 Freq: Status: Active Protocol: Document 11/26/22 09:54 [facility] (Rec: 11/26/22 10:36 [facility] [id number]) Special Tests Shoulder Special Tests Garcia Michael Impingement Test Results neg Neer Impingement Test Results neg Empty Can Test Results neg Hip Special Tests Bev's Test Results mild tightness L Slump Test Results neg B Straight Leg Raise Test Results positive limited B Neural Special Tests- Upper Body Median Nerve Tension Test Results positve R tension Ulnar Nerve Tension Test Results neg Radial Nerve Tension Test Results neg PT-OP-M Strength Start: 11/26/22 09:54 Freq: Status: Active Protocol: Document 02/03/23 10:33 [facility] (Rec: 02/03/23 11:20 [facility] [id number]) Shoulder Strength Shoulder Manual Muscle Testing Right Flexion 4+ Good+ Extension 4+ Good+ Abduction (C5) 4+ Good+ External Rotation 4+ Good+ Internal Rotation 4+ Good+ Left Flexion 5 Normal Extension 5 Normal Abduction (C5) 5 Normal External Rotation 5 Normal Internal Rotation 5 Normal Hip Strength Hip Manual Muscle Testing Right Flexion (L2) 4+ Good+ Extension (S1) 4- Good- Abduction 4 Good Adduction 5 Normal External Rotation 3+ Fair+ Internal Rotation 5 Normal Left Flexion (L2) 4 Good Extension (S1) 4- Good- Abduction 4 Good Adduction 5 Normal External Rotation 4- Good- Internal Rotation 4- Good- Knee Strength Knee Manual Muscle Testing Right Flexion (S2) 5 Normal Extension (L3) 5 Normal Left Flexion (S2) 5 Normal Extension (L3) 4+ Good+ Ankle/Foot Strength Ankle and Foot Manual Muscle Testing Right Dorsiflexion (L4) 5 Normal Plantarflexion (S1) 5 Normal Inversion 5 Normal Eversion (S1) 5 Normal Comments cues to keep knee straight R>L Left Dorsiflexion (L4) 5 Normal Plantarflexion (S1) 5 Normal Inversion 5 Normal Eversion (S1) 5 Normal Comments 20 heel raises B ; fatigue in calf; sore post thigh PT-OP-Q Treatments Start: 11/26/22 09:54 Freq: Status: Active Protocol: Document 02/17/23 13:36 [facility] (Rec: 02/17/23 14:42 [facility] [id number]) Manual Therapy Treatment Soft Tissue Mobilization UE Body Location R along radial n pathway w/ radial n glide Mobilization Type Myofascial Release,Sustained Pressure Intensity/Depth Moderate Comments 2. circumfrential w/IR pec Body Location R Mobilization Type Rolling,Strumming,Sustained Pressure Intensity/Depth Moderate Comments w/gentle ovrehead motion Joint Mobilizations cervical Comments L shear C6 and 7 FM GH Joint R post FM & inf FM ribs Comments R [id number] rib FM AC Joint B ant clavicle FM PT-OP-R Modalities Start: 11/26/22 09:54 Freq: Status: Active Protocol: Document 02/17/23 13:36 [facility] (Rec: 02/17/23 14:42 [facility] [id number]) Hot Pack/Cold Pack Treatment Cold Pack Location R shoulder & cervial Treatment Duration (minutes) 10 PT-OP-T Assessment and Plan Start: 11/26/22 09:54 Freq: Status: Active Protocol: Document 02/17/23 13:36 [facility] (Rec: 02/17/23 14:42 [facility] [id number]) Physical Therapy Assessment Goals balance 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 02/03-much improved but still limited -still can't get bra on/off post but can lift ahead LTG Duration 04/28/23 strength Short Term Goal (STG) Pt will be indep w/HEP STG Duration achieved advancing as able Residential Goal (LTG) pt will score at least 3/5 on LPM and EFT and at least 4+/5 on BUE and BLE MMT to show improved stability in order to do her job and daily activities w/less pain. 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 02/03-has been limiting; still painful LTG Duration 04/28/23 Assessment Summary Assessment Pt started w/positive radial n tension testing and improved w/this after manual treatment to greater range before tension was felt. She has significant limitation at upper ribs and will require further manual to improve this mobility. Physical Therapy Plan Frequency and Duration Frequency of Treatment 2x/Week Duration of treatment (weeks) 12 Plan of Care Start Date 02/03/23 Plan of Care End Date 04/28/23 Next Visit Focus/Plan Next Note Type Treatment Note Next Visit Plan manual to soft tissue R shoulder, AC & SC mobs & GH, ribcage mobility; cont to work on Le mobility
--- NOTE | 2023-02-20 15:29 | PT.OTN ---
Current Diagnoses Other chronic pain (02/20/23) Pain in right shoulder (02/20/23) Pain in left thigh (02/20/23) Fibromyalgia (02/20/23) Difficulty in walking, not elsewhere classified (02/20/23) Abnormal posture (02/20/23) Weakness (02/20/23) Physical Therapy Treatment Note PT-OP-A Visit Information Start: 11/26/22 09:54 Freq: Status: Active Protocol: Document 02/20/23 15:24 [facility] (Rec: 02/20/23 15:29 [facility] [id number]) Out-Patient Physical Therapy Visit Information Visit Information Visit Type Treatment Note Visit Start Time 14:21 Visit Stop Time 15:10 Total Visit Minutes 49 Visit Number 21 Number of TEACHER ADULT EDUCATION Visits 0 PT-OP-B Current Condition Start: 11/26/22 09:54 Freq: Status: Active Protocol: Document 11/26/22 09:54 [facility] (Rec: 11/26/22 10:36 [facility] [id number]) Current Condition History of Current Condition Onset Date 1-1.5 ear ago Current Complaints R shoulder pain & L hip and leg pain History of Current Condition Pt reports about 1-1.5 years ago, 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 She has fibromyalgia so she has travelling pain. The things she can't do when things are behind her. She has trouble carrying things up narrow hallways and w/pulling things. It wasn't a one time thing but more of a gradual thing. Her xray didn't show much, but MRI showed 5 things that were moderate. 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 The ortho gave a cortizone shot that gave 3-4 weeks and got a different shot in a different location and when that block wore off, she had extreme pain for 18 hours but it didn't help. She went to OT w/Vivian at [facility]. She has been seeing a naturopathic doctor and has been doing prolo and feels like that is helping her. She used to lose her power when she was reaching overhead but that is better. Her main concern in ROM. She is doing a lot of stretches from the OT. Pt woke up 2 weeks ago w/ really bad L hip pain and it is keeping her up and night and it is radiating down L lat and ant down through lower leg. Pt has head pressure when she bends over that lasts until she sits back up. Has been having sleep issues but did do a sleep study. Treatment Goals Patient/Caregiver Goals Wants to be able to IR behind back so she can put on a bra. PT-OP-C Subjective Start: 11/26/22 09:54 Freq: Status: Active Protocol: Document 02/20/23 15:24 [facility] (Rec: 02/20/23 15:29 [facility] [id number]) OP-PT Subjective Patient Comments Patient Comments pt reprots she cont to feel like her sessions are helpful Patient Reported Progress Improving PT-OP-D Balance Start: 11/26/22 09:54 Freq: Status: Active Protocol: Document 11/26/22 09:54 [facility] (Rec: 11/26/22 10:36 [facility] [id number]) Balance Tests Single Limb Standing Single Limb- Right 5 sec Single Limb- Left 7 sec PT-OP-F Manual Assessment Start: 11/26/22 09:54 Freq: Status: Active Protocol: Document 11/26/22 09:54 [facility] (Rec: 11/26/22 10:36 [facility] [id number]) Manual Assessments Joint Mobility Assessment Joint Mobility Assessment equal greater troch and iliac crests B; sidebent to R, R shoulder lower than L, Humerus R is ant in glenoid PT-OP-G Mobility & Gait Start: 11/26/22 09:54 Freq: Status: Active Protocol: Document 11/26/22 09:54 [facility] (Rec: 11/26/22 10:36 [facility] [id number]) OP Gait Assessment Comments Gait Comments dec LUE swing, dec push off on LLE, excessive pelvis rotation PT-OP-J Posture/Palpation/Skin Start: 11/26/22 09:54 Freq: Status: Active Protocol: Document 02/03/23 10:33 [facility] (Rec: 02/03/23 11:20 [facility] [id number]) Posture Evaluation Roldan Postural Classification System Elbow Flexion Test 2 Lumbar Protective Mechanism Left AP 2 Lumbar Protective Mechanism Right AP 1 Lumbar Protective Mechanism Left PA 2 Lumbar Protective Mechanism Right PA 2 PT-OP-K Range of Motion Start: 11/26/22 09:54 Freq: Status: Active Protocol: Document 02/03/23 10:33 [facility] (Rec: 02/03/23 11:20 [facility] [id number]) Cervical Spine Range of Motion Cervical Spine Active Degrees Flexion 62 Extension 50 Rotation Left 55 Rotation Right 50 Lateral Flexion Left 29 Lateral Flexion Right 32 Comments pain w/r rot, L rot tight, ext pain post;tight B SB Shoulder Goniometric Range of Motion Shoulder Right Active Flexion 153 Extension 51 Abduction 158 External Rotation at 90 degrees 95 Abduction External Rotation at 0 degrees Abduction 69 Internal Rotation Behind Back (text) T10 Comments pain end range of motion or tightness Left Active Flexion 156 Extension 70 Abduction 180 External Rotation at 90 degrees 95 Abduction External Rotation at 0 degrees Abduction 52 Internal Rotation Behind Back (text) T6 PT-OP-L Special Tests Start: 11/26/22 09:54 Freq: Status: Active Protocol: Document 11/26/22 09:54 [facility] (Rec: 11/26/22 10:36 [facility] [id number]) Special Tests Shoulder Special Tests Garcia Michael Impingement Test Results neg Neer Impingement Test Results neg Empty Can Test Results neg Hip Special Tests Bev's Test Results mild tightness L Slump Test Results neg B Straight Leg Raise Test Results positive limited B Neural Special Tests- Upper Body Median Nerve Tension Test Results positve R tension Ulnar Nerve Tension Test Results neg Radial Nerve Tension Test Results neg PT-OP-M Strength Start: 11/26/22 09:54 Freq: Status: Active Protocol: Document 02/03/23 10:33 [facility] (Rec: 02/03/23 11:20 [facility] [id number]) Shoulder Strength Shoulder Manual Muscle Testing Right Flexion 4+ Good+ Extension 4+ Good+ Abduction (C5) 4+ Good+ External Rotation 4+ Good+ Internal Rotation 4+ Good+ Left Flexion 5 Normal Extension 5 Normal Abduction (C5) 5 Normal External Rotation 5 Normal Internal Rotation 5 Normal Hip Strength Hip Manual Muscle Testing Right Flexion (L2) 4+ Good+ Extension (S1) 4- Good- Abduction 4 Good Adduction 5 Normal External Rotation 3+ Fair+ Internal Rotation 5 Normal Left Flexion (L2) 4 Good Extension (S1) 4- Good- Abduction 4 Good Adduction 5 Normal External Rotation 4- Good- Internal Rotation 4- Good- Knee Strength Knee Manual Muscle Testing Right Flexion (S2) 5 Normal Extension (L3) 5 Normal Left Flexion (S2) 5 Normal Extension (L3) 4+ Good+ Ankle/Foot Strength Ankle and Foot Manual Muscle Testing Right Dorsiflexion (L4) 5 Normal Plantarflexion (S1) 5 Normal Inversion 5 Normal Eversion (S1) 5 Normal Comments cues to keep knee straight R>L Left Dorsiflexion (L4) 5 Normal Plantarflexion (S1) 5 Normal Inversion 5 Normal Eversion (S1) 5 Normal Comments 20 heel raises B ; fatigue in calf; sore post thigh PT-OP-Q Treatments Start: 11/26/22 09:54 Freq: Status: Active Protocol: Document 02/20/23 15:24 [facility] (Rec: 02/20/23 15:29 [facility] [id number]) Therapeutic Exercises Supine Exercises breathing Supine Exercise Name diaphragmatic breathing working on lat ribcage mobility Reps/Minutes 2x4 min Manual Therapy Treatment Soft Tissue Mobilization back Body Location R lat, rhomboids Mobilization Type Rolling Intensity/Depth Moderate Body Position Sidelying Joint Mobilizations cervical Comments L shear C6 and 7 FM thoracic Comments transverse glide L T5-9 FM ribs Comments R generral depression FM s/l w /scap patterns SC Joint R inf FM AC Joint B ant clavicle FM PT-OP-R Modalities Start: 11/26/22 09:54 Freq: Status: Active Protocol: Document 02/20/23 15:24 [facility] (Rec: 02/20/23 15:29 [facility] [id number]) Hot Pack/Cold Pack Treatment Cold Pack Location R shoulder & ribcage Treatment Duration (minutes) 10 PT-OP-T Assessment and Plan Start: 11/26/22 09:54 Freq: Status: Active Protocol: Document 02/20/23 15:24 [facility] (Rec: 02/20/23 15:29 [facility] [id number]) Physical Therapy Assessment Goals balance Snf Goal (LTG) pt will be able to do SLS for 10 sec B 02/03:19 sec R; 12 sec L but lat hip shear and UE flailing- goal met advance to 10 sec SLS w/hands at hips and no lat hip shear LTG Duration 7/10 ROM Snf Goal (LTG) Pt will have R Shoulder AROM equal to L shoulder in order to allow for donning/doffing bra, reaching overhead, etc. 02/03-much improved but still limited -still can't get bra on/off post but can lift ahead LTG Duration 04/28/23 strength Short Term Goal (STG) Pt will be indep w/HEP STG Duration achieved advancing as able Snf Goal (LTG) pt will score at least 3/5 on LPM and EFT and at least 4+/5 on BUE and BLE MMT to show improved stability in order to do her job and daily activities w/less pain. 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 02/03-has been limiting; still painful LTG Duration 04/28/23 Assessment Summary Assessment pt had improved thoracic rotation R and Cervical rot R w/mnaul treatment. She required a lot fo cues for breathing as she often gets abdomen expansion but has no lat expansion. Improved w/ manual and w/cues Physical Therapy Plan Frequency and Duration Frequency of Treatment 2x/Week Duration of treatment (weeks) 12 Plan of Care Start Date 02/03/23 Plan of Care End Date 04/28/23 Next Visit Focus/Plan Next Note Type Treatment Note Next Visit Plan manual to soft tissue R shoulder, AC & SC mobs & GH, ribcage mobility; cont to work on Le mobility
--- NOTE | 2023-02-25 13:38 | PT-OP ANOTE ---
Pt called re: no show and pt notes she ddidn't have it noted in her calender. She was able to recite all other appts coming up and confired having those written out. Pt informed to call re: need to cancel any further visits.
--- NOTE | 2023-02-27 15:08 | PT.OTN ---
Current Diagnoses Other chronic pain (02/27/23) Pain in right shoulder (02/27/23) Pain in left thigh (02/27/23) Fibromyalgia (02/27/23) Difficulty in walking, not elsewhere classified (02/27/23) Abnormal posture (02/27/23) Weakness (02/27/23) Physical Therapy Treatment Note PT-OP-A Visit Information Start: 11/26/22 09:54 Freq: Status: Active Protocol: Document 02/27/23 14:24 [facility] (Rec: 02/27/23 15:08 [facility] [id number]) Out-Patient Physical Therapy Visit Information Visit Information Visit Type Treatment Note Visit Start Time 14:22 Visit Stop Time 15:01 Total Visit Minutes 39 Visit Number 22 Number of FISH FARM LABORER Visits 0 PT-OP-B Current Condition Start: 11/26/22 09:54 Freq: Status: Active Protocol: Document 11/26/22 09:54 [facility] (Rec: 11/26/22 10:36 [facility] [id number]) Current Condition History of Current Condition Onset Date 1-1.5 ear ago Current Complaints R shoulder pain & L hip and leg pain History of Current Condition Pt reports about 1-1.5 years ago, 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 She has fibromyalgia so she has travelling pain. The things she can't do when things are behind her. She has trouble carrying things up narrow hallways and w/pulling things. It wasn't a one time thing but more of a gradual thing. Her xray didn't show much, but MRI showed 5 things that were moderate. 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 The ortho gave a cortizone shot that gave 3-4 weeks and got a different shot in a different location and when that block wore off, she had extreme pain for 18 hours but it didn't help. She went to OT w/Vivian at [facility]. She has been seeing a naturopathic doctor and has been doing prolo and feels like that is helping her. She used to lose her power when she was reaching overhead but that is better. Her main concern in ROM. She is doing a lot of stretches from the OT. Pt woke up 2 weeks ago w/ really bad L hip pain and it is keeping her up and night and it is radiating down L lat and ant down through lower leg. Pt has head pressure when she bends over that lasts until she sits back up. Has been having sleep issues but did do a sleep study. Treatment Goals Patient/Caregiver Goals Wants to be able to IR behind back so she can put on a bra. PT-OP-C Subjective Start: 11/26/22 09:54 Freq: Status: Active Protocol: Document 02/27/23 14:24 [facility] (Rec: 02/27/23 15:08 [facility] [id number]) OP-PT Subjective Patient Comments Patient Comments Pt reports she had cranial sacral this AM. She felt like her R ear is more affected and worked on that a bit. Last night, she woke up w/genesis horses in legs. She notes her sternum has been sore. Pt reports her elbows have been sore and L med knee, PT-OP-D Balance Start: 11/26/22 09:54 Freq: Status: Active Protocol: Document 11/26/22 09:54 [facility] (Rec: 11/26/22 10:36 [facility] [id number]) Balance Tests Single Limb Standing Single Limb- Right 5 sec Single Limb- Left 7 sec PT-OP-F Manual Assessment Start: 11/26/22 09:54 Freq: Status: Active Protocol: Document 11/26/22 09:54 [facility] (Rec: 11/26/22 10:36 [facility] [id number]) Manual Assessments Joint Mobility Assessment Joint Mobility Assessment equal greater troch and iliac crests B; sidebent to R, R shoulder lower than L, Humerus R is ant in glenoid PT-OP-G Mobility & Gait Start: 11/26/22 09:54 Freq: Status: Active Protocol: Document 11/26/22 09:54 [facility] (Rec: 11/26/22 10:36 [facility] [id number]) OP Gait Assessment Comments Gait Comments dec LUE swing, dec push off on LLE, excessive pelvis rotation PT-OP-J Posture/Palpation/Skin Start: 11/26/22 09:54 Freq: Status: Active Protocol: Document 02/03/23 10:33 [facility] (Rec: 02/03/23 11:20 [facility] [id number]) Posture Evaluation [facility] Postural Classification System Elbow Flexion Test 2 Lumbar Protective Mechanism Left AP 2 Lumbar Protective Mechanism Right AP 1 Lumbar Protective Mechanism Left PA 2 Lumbar Protective Mechanism Right PA 2 PT-OP-K Range of Motion Start: 11/26/22 09:54 Freq: Status: Active Protocol: Document 02/03/23 10:33 [facility] (Rec: 02/03/23 11:20 [facility] [id number]) Cervical Spine Range of Motion Cervical Spine Active Degrees Flexion 62 Extension 50 Rotation Left 55 Rotation Right 50 Lateral Flexion Left 29 Lateral Flexion Right 32 Comments pain w/r rot, L rot tight, ext pain post;tight B SB Shoulder Goniometric Range of Motion Shoulder Right Active Flexion 153 Extension 51 Abduction 158 External Rotation at 90 degrees 95 Abduction External Rotation at 0 degrees Abduction 69 Internal Rotation Behind Back (text) T10 Comments pain end range of motion or tightness Left Active Flexion 156 Extension 70 Abduction 180 External Rotation at 90 degrees 95 Abduction External Rotation at 0 degrees Abduction 52 Internal Rotation Behind Back (text) T6 PT-OP-L Special Tests Start: 11/26/22 09:54 Freq: Status: Active Protocol: Document 11/26/22 09:54 [facility] (Rec: 11/26/22 10:36 [facility] [id number]) Special Tests Shoulder Special Tests Garcia Michael Impingement Test Results neg Neer Impingement Test Results neg Empty Can Test Results neg Hip Special Tests Bev's Test Results mild tightness L Slump Test Results neg B Straight Leg Raise Test Results positive limited B Neural Special Tests- Upper Body Median Nerve Tension Test Results positve R tension Ulnar Nerve Tension Test Results neg Radial Nerve Tension Test Results neg PT-OP-M Strength Start: 11/26/22 09:54 Freq: Status: Active Protocol: Document 02/03/23 10:33 [facility] (Rec: 02/03/23 11:20 [facility] [id number]) Shoulder Strength Shoulder Manual Muscle Testing Right Flexion 4+ Good+ Extension 4+ Good+ Abduction (C5) 4+ Good+ External Rotation 4+ Good+ Internal Rotation 4+ Good+ Left Flexion 5 Normal Extension 5 Normal Abduction (C5) 5 Normal External Rotation 5 Normal Internal Rotation 5 Normal Hip Strength Hip Manual Muscle Testing Right Flexion (L2) 4+ Good+ Extension (S1) 4- Good- Abduction 4 Good Adduction 5 Normal External Rotation 3+ Fair+ Internal Rotation 5 Normal Left Flexion (L2) 4 Good Extension (S1) 4- Good- Abduction 4 Good Adduction 5 Normal External Rotation 4- Good- Internal Rotation 4- Good- Knee Strength Knee Manual Muscle Testing Right Flexion (S2) 5 Normal Extension (L3) 5 Normal Left Flexion (S2) 5 Normal Extension (L3) 4+ Good+ Ankle/Foot Strength Ankle and Foot Manual Muscle Testing Right Dorsiflexion (L4) 5 Normal Plantarflexion (S1) 5 Normal Inversion 5 Normal Eversion (S1) 5 Normal Comments cues to keep knee straight R>L Left Dorsiflexion (L4) 5 Normal Plantarflexion (S1) 5 Normal Inversion 5 Normal Eversion (S1) 5 Normal Comments 20 heel raises B ; fatigue in calf; sore post thigh PT-OP-Q Treatments Start: 11/26/22 09:54 Freq: Status: Active Protocol: Document 02/27/23 14:24 [facility] (Rec: 02/27/23 15:08 [facility] [id number]) Therapeutic Exercises Sidelying Exercises 1st rib mobs Sidelying Exercise Name R roll on it Sitting Exercises 1st rib mob Sitting Exercise Name towel Side right Reps/Minutes 10x w/Sb Standing Exercises pec stretch Standing Exercise Name corner Side bilateral Reps/Minutes 30 sec posture Standing Exercise Name w/mod pivot prone Side bilateral Reps/Minutes 10 Manual Therapy Treatment Soft Tissue Mobilization scap Body Location R subscap, R lat Mobilization Type Strumming,Sustained Pressure Intensity/Depth Moderate Body Position Supine UE Body Location R along radial n pathway w/ radial n glide Mobilization Type Myofascial Release,Sustained Pressure Intensity/Depth Moderate Comments 2. circumfrential w/IR Joint Mobilizations elbow Direction radioulnar PA FM thoracic Comments transverse glide L T5-7 FM GH Joint R post and distraction FM ribs Comments R first FM PT-OP-R Modalities Start: 11/26/22 09:54 Freq: Status: Active Protocol: Document 02/20/23 15:24 [facility] (Rec: 02/20/23 15:29 [facility] [id number]) Hot Pack/Cold Pack Treatment Cold Pack Location R shoulder & ribcage Treatment Duration (minutes) 10 PT-OP-T Assessment and Plan Start: 11/26/22 09:54 Freq: Status: Active Protocol: Document 02/27/23 14:24 [facility] (Rec: 02/27/23 15:08 [facility] [id number]) Physical Therapy Assessment Goals balance Cmv Driver Goal (LTG) pt will be able to do SLS for 10 sec B 02/03:19 sec R; 12 sec L but lat hip shear and UE flailing- goal met advance to 10 sec SLS w/hands at hips and no lat hip shear LTG Duration 04/28 ROM Cmv Driver Goal (LTG) Pt will have R Shoulder AROM equal to L shoulder in order to allow for donning/doffing bra, reaching overhead, etc. 02/03-much improved but still limited -still can't get bra on/off post but can lift ahead LTG Duration 04/28/23 strength Short Term Goal (STG) Pt will be indep w/HEP STG Duration achieved advancing as able Cmv Driver Goal (LTG) pt will score at least 3/5 on LPM and EFT and at least 4+/5 on BUE and BLE MMT to show improved stability in order to do her job and daily activities w/less pain. 02/03-goal met w/UE strength; LE strength still limited and EFT & LPM LTG Duration 04/28 work Nursing Home Goal (LTG) Pt will be able to carry and pull the objects she needs without inc pain. 02/03-has been limiting; still painful LTG Duration 04/28/23 Assessment Summary Assessment Pt had improved IR and pronation w/manual treatment today and improved R thoracic rot Physical Therapy Plan Frequency and Duration Frequency of Treatment 2x/Week Duration of treatment (weeks) 12 Plan of Care Start Date 02/03/23 Plan of Care End Date 04/28/23 Next Visit Focus/Plan Next Note Type Treatment Note Next Visit Plan manual to soft tissue R shoulder, AC & SC mobs & GH, ribcage mobility; cont to work on Le mobility
--- NOTE | 2023-03-03 10:03 | PT.OTN ---
Current Diagnoses Other chronic pain (03/03/23) Pain in right shoulder (03/03/23) Pain in left thigh (03/03/23) Fibromyalgia (03/03/23) Difficulty in walking, not elsewhere classified (03/03/23) Abnormal posture (03/03/23) Weakness (03/03/23) Physical Therapy Treatment Note PT-OP-A Visit Information Start: 11/26/22 09:54 Freq: Status: Active Protocol: Document 03/03/23 07:32 [facility] (Rec: 03/03/23 10:02 [facility] [id number]) Out-Patient Physical Therapy Visit Information Visit Information Visit Type Treatment Note Visit Start Time 09:04 Visit Stop Time 09:45 Total Visit Minutes 41 Visit Number 23 Number of HUMAN SERVICES PROGRAM SPECIALIST Visits 0 PT-OP-B Current Condition Start: 11/26/22 09:54 Freq: Status: Active Protocol: Document 11/26/22 09:54 [facility] (Rec: 11/26/22 10:36 [facility] [id number]) Current Condition History of Current Condition Onset Date 1-1.5 ear ago Current Complaints R shoulder pain & L hip and leg pain History of Current Condition Pt reports about 1-1.5 years ago, 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 She has fibromyalgia so she has travelling pain. The things she can't do when things are behind her. She has trouble carrying things up narrow hallways and w/pulling things. It wasn't a one time thing but more of a gradual thing. Her xray didn't show much, but MRI showed 5 things that were moderate. 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 The ortho gave a cortizone shot that gave 3-4 weeks and got a different shot in a different location and when that block wore off, she had extreme pain for 18 hours but it didn't help. She went to OT w/Vivian at [facility]. She has been seeing a naturopathic doctor and has been doing prolo and feels like that is helping her. She used to lose her power when she was reaching overhead but that is better. Her main concern in ROM. She is doing a lot of stretches from the OT. Pt woke up 2 weeks ago w/ really bad L hip pain and it is keeping her up and night and it is radiating down L lat and ant down through lower leg. Pt has head pressure when she bends over that lasts until she sits back up. Has been having sleep issues but did do a sleep study. Treatment Goals Patient/Caregiver Goals Wants to be able to IR behind back so she can put on a bra. PT-OP-C Subjective Start: 11/26/22 09:54 Freq: Status: Active Protocol: Document 03/03/23 07:32 [facility] (Rec: 03/03/23 10:02 [facility] [id number]) OP-PT Subjective Patient Comments Patient Comments Pt reprots she did have some neck soreness this weekend and she did the self mobs and that helped. She feels like she is getting more R shourlder ROM. Pt reports like she hasn't felt like she is fighting off leg crampign as much anymore. Patient Reported Progress Improving PT-OP-D Balance Start: 11/26/22 09:54 Freq: Status: Active Protocol: Document 11/26/22 09:54 [facility] (Rec: 11/26/22 10:36 [facility] [id number]) Balance Tests Single Limb Standing Single Limb- Right 5 sec Single Limb- Left 7 sec PT-OP-F Manual Assessment Start: 11/26/22 09:54 Freq: Status: Active Protocol: Document 11/26/22 09:54 [facility] (Rec: 11/26/22 10:36 [facility] [id number]) Manual Assessments Joint Mobility Assessment Joint Mobility Assessment equal greater troch and iliac crests B; sidebent to R, R shoulder lower than L, Humerus R is ant in glenoid PT-OP-G Mobility & Gait Start: 11/26/22 09:54 Freq: Status: Active Protocol: Document 11/26/22 09:54 [facility] (Rec: 11/26/22 10:36 [facility] [id number]) OP Gait Assessment Comments Gait Comments dec LUE swing, dec push off on LLE, excessive pelvis rotation PT-OP-J Posture/Palpation/Skin Start: 11/26/22 09:54 Freq: Status: Active Protocol: Document 02/03/23 10:33 [facility] (Rec: 02/03/23 11:20 [facility] [id number]) Posture Evaluation [facility] Postural Classification System Elbow Flexion Test 2 Lumbar Protective Mechanism Left AP 2 Lumbar Protective Mechanism Right AP 1 Lumbar Protective Mechanism Left PA 2 Lumbar Protective Mechanism Right PA 2 PT-OP-K Range of Motion Start: 11/26/22 09:54 Freq: Status: Active Protocol: Document 02/03/23 10:33 [facility] (Rec: 02/03/23 11:20 [facility] [id number]) Cervical Spine Range of Motion Cervical Spine Active Degrees Flexion 62 Extension 50 Rotation Left 55 Rotation Right 50 Lateral Flexion Left 29 Lateral Flexion Right 32 Comments pain w/r rot, L rot tight, ext pain post;tight B SB Shoulder Goniometric Range of Motion Shoulder Right Active Flexion 153 Extension 51 Abduction 158 External Rotation at 90 degrees 95 Abduction External Rotation at 0 degrees Abduction 69 Internal Rotation Behind Back (text) T10 Comments pain end range of motion or tightness Left Active Flexion 156 Extension 70 Abduction 180 External Rotation at 90 degrees 95 Abduction External Rotation at 0 degrees Abduction 52 Internal Rotation Behind Back (text) T6 PT-OP-L Special Tests Start: 11/26/22 09:54 Freq: Status: Active Protocol: Document 11/26/22 09:54 [facility] (Rec: 11/26/22 10:36 [facility] [id number]) Special Tests Shoulder Special Tests Garcia Michael Impingement Test Results neg Neer Impingement Test Results neg Empty Can Test Results neg Hip Special Tests Bev's Test Results mild tightness L Slump Test Results neg B Straight Leg Raise Test Results positive limited B Neural Special Tests- Upper Body Median Nerve Tension Test Results positve R tension Ulnar Nerve Tension Test Results neg Radial Nerve Tension Test Results neg PT-OP-M Strength Start: 11/26/22 09:54 Freq: Status: Active Protocol: Document 02/03/23 10:33 [facility] (Rec: 02/03/23 11:20 [facility] [id number]) Shoulder Strength Shoulder Manual Muscle Testing Right Flexion 4+ Good+ Extension 4+ Good+ Abduction (C5) 4+ Good+ External Rotation 4+ Good+ Internal Rotation 4+ Good+ Left Flexion 5 Normal Extension 5 Normal Abduction (C5) 5 Normal External Rotation 5 Normal Internal Rotation 5 Normal Hip Strength Hip Manual Muscle Testing Right Flexion (L2) 4+ Good+ Extension (S1) 4- Good- Abduction 4 Good Adduction 5 Normal External Rotation 3+ Fair+ Internal Rotation 5 Normal Left Flexion (L2) 4 Good Extension (S1) 4- Good- Abduction 4 Good Adduction 5 Normal External Rotation 4- Good- Internal Rotation 4- Good- Knee Strength Knee Manual Muscle Testing Right Flexion (S2) 5 Normal Extension (L3) 5 Normal Left Flexion (S2) 5 Normal Extension (L3) 4+ Good+ Ankle/Foot Strength Ankle and Foot Manual Muscle Testing Right Dorsiflexion (L4) 5 Normal Plantarflexion (S1) 5 Normal Inversion 5 Normal Eversion (S1) 5 Normal Comments cues to keep knee straight R>L Left Dorsiflexion (L4) 5 Normal Plantarflexion (S1) 5 Normal Inversion 5 Normal Eversion (S1) 5 Normal Comments 20 heel raises B ; fatigue in calf; sore post thigh PT-OP-Q Treatments Start: 11/26/22 09:54 Freq: Status: Active Protocol: Document 03/03/23 07:32 [facility] (Rec: 03/03/23 10:02 [facility] [id number]) Manual Therapy Treatment Soft Tissue Mobilization ant Body Location R biceps and pec Mobilization Type Rolling,Strumming Intensity/Depth Moderate scap Body Location R subscap, R lat Mobilization Type Strumming,Sustained Pressure Intensity/Depth Moderate Body Position s/l UE Body Location circumfrential w/IR Mobilization Type Myofascial Release,Sustained Pressure Intensity/Depth Moderate Joint Mobilizations elbow Comments 1.radioulnar AP FM 2. distal humerus PA FM thoracic Comments transverse glide L T3-10 FM w/ wt shift L ribs Comments R generral depression FM s/l w /scap patterns AC Joint B post scap FM PT-OP-R Modalities Start: 11/26/22 09:54 Freq: Status: Active Protocol: Document 02/20/23 15:24 [facility] (Rec: 02/20/23 15:29 [facility] [id number]) Hot Pack/Cold Pack Treatment Cold Pack Location R shoulder & ribcage Treatment Duration (minutes) 10 PT-OP-T Assessment and Plan Start: 11/26/22 09:54 Freq: Status: Active Protocol: Document 03/03/23 07:32 [facility] (Rec: 03/03/23 10:02 [facility] [id number]) Physical Therapy Assessment Goals balance Detention Goal (LTG) pt will be able to do SLS for 10 sec B 4/17:19 sec R; 12 sec L but lat hip shear and UE flailing- goal met advance to 10 sec SLS w/hands at hips and no lat hip shear LTG Duration 04/28 ROM Geopolitics Teacher Goal (LTG) Pt will have R Shoulder AROM equal to L shoulder in order to allow for donning/doffing bra, reaching overhead, etc. 02/03-much improved but still limited -still can't get bra on/off post but can lift ahead LTG Duration 04/28/23 strength Short Term Goal (STG) Pt will be indep w/HEP STG Duration achieved advancing as able Geopolitics Teacher Goal (LTG) pt will score at least 3/5 on LPM and EFT and at least 4+/5 on BUE and BLE MMT to show improved stability in order to do her job and daily activities w/less pain. 02/03-goal met w/UE strength; LE strength still limited and EFT & LPM LTG Duration 04/28 work Geopolitics Teacher Goal (LTG) Pt will be able to carry and pull the objects she needs without inc pain. 02/03-has been limiting; still painful LTG Duration 04/28/23 Assessment Summary Assessment Pt had improved IR and improved throacic R rotion w/ treatment today.S he is very stiff in thoracic area which likely is causing some restrictiosn. Physical Therapy Plan Frequency and Duration Frequency of Treatment 2x/Week Duration of treatment (weeks) 12 Plan of Care Start Date 02/03/23 Plan of Care End Date 04/28/23 Next Visit Focus/Plan Next Note Type Treatment Note Next Visit Plan focus on post dep R & other PNF patterns; work on ribs 5-7 to improve scap mobility
--- NOTE | 2023-03-05 12:07 | PT.OTN ---
Current Diagnoses Other chronic pain (03/05/23) Pain in right shoulder (03/05/23) Pain in left thigh (03/05/23) Fibromyalgia (03/05/23) Difficulty in walking, not elsewhere classified (03/05/23) Abnormal posture (03/05/23) Weakness (03/05/23) Physical Therapy Treatment Note PT-OP-A Visit Information Start: 11/26/22 09:54 Freq: Status: Active Protocol: Document 03/05/23 10:48 [facility] (Rec: 03/05/23 12:07 [facility] [id number]) Out-Patient Physical Therapy Visit Information Visit Information Visit Type Treatment Note Visit Start Time 10:48 Visit Stop Time 11:30 Total Visit Minutes 42 Visit Number 24 Number of [facility] Visits 0 PT-OP-B Current Condition Start: 11/26/22 09:54 Freq: Status: Active Protocol: Document 11/26/22 09:54 [facility] (Rec: 11/26/22 10:36 [facility] [id number]) Current Condition History of Current Condition Onset Date 1-1.5 ear ago Current Complaints R shoulder pain & L hip and leg pain History of Current Condition Pt reports about 1-1.5 years ago, 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 She has fibromyalgia so she has travelling pain. The things she can't do when things are behind her. She has trouble carrying things up narrow hallways and w/pulling things. It wasn't a one time thing but more of a gradual thing. Her xray didn't show much, but MRI showed 5 things that were moderate. 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 The ortho gave a cortizone shot that gave 3-4 weeks and got a different shot in a different location and when that block wore off, she had extreme pain for 18 hours but it didn't help. She went to OT w/Vivian at [facility]. She has been seeing a naturopathic doctor and has been doing prolo and feels like that is helping her. She used to lose her power when she was reaching overhead but that is better. Her main concern in ROM. She is doing a lot of stretches from the OT. Pt woke up 2 weeks ago w/ really bad L hip pain and it is keeping her up and night and it is radiating down L lat and ant down through lower leg. Pt has head pressure when she bends over that lasts until she sits back up. Has been having sleep issues but did do a sleep study. Treatment Goals Patient/Caregiver Goals Wants to be able to IR behind back so she can put on a bra. PT-OP-C Subjective Start: 11/26/22 09:54 Freq: Status: Active Protocol: Document 03/05/23 10:48 [facility] (Rec: 03/05/23 12:07 [facility] [id number]) OP-PT Subjective Patient Comments Patient Comments Pt reports she did have one instance of R ankle felt like it went out of joint but it did resolve quickly. she feels like her ROM is improving w/ PT still session to session PT-OP-D Balance Start: 11/26/22 09:54 Freq: Status: Active Protocol: Document 11/26/22 09:54 [facility] (Rec: 11/26/22 10:36 [id number] Balance Tests Single Limb Standing Single Limb- Right 5 sec Single Limb- Left 7 sec PT-OP-F Manual Assessment Start: 11/26/22 09:54 Freq: Status: Active Protocol: Document 11/26/22 09:54 [facility] (Rec: 11/26/22 10:36 [facility] [id number]) Manual Assessments Joint Mobility Assessment Joint Mobility Assessment equal greater troch and iliac crests B; sidebent to R, R shoulder lower than L, Humerus R is ant in glenoid PT-OP-G Mobility & Gait Start: 11/26/22 09:54 Freq: Status: Active Protocol: Document 11/26/22 09:54 [facility] (Rec: 11/26/22 10:36 [facility] [id number]) OP Gait Assessment Comments Gait Comments dec LUE swing, dec push off on LLE, excessive pelvis rotation PT-OP-J Posture/Palpation/Skin Start: 11/26/22 09:54 Freq: Status: Active Protocol: Document 02/03/23 10:33 [facility] (Rec: 02/03/23 11:20 [facility] [id number]) Posture Evaluation Roldan Postural Classification System Elbow Flexion Test 2 Lumbar Protective Mechanism Left AP 2 Lumbar Protective Mechanism Right AP 1 Lumbar Protective Mechanism Left PA 2 Lumbar Protective Mechanism Right PA 2 PT-OP-K Range of Motion Start: 11/26/22 09:54 Freq: Status: Active Protocol: Document 02/03/23 10:33 [facility] (Rec: 02/03/23 11:20 [facility] [id number]) Cervical Spine Range of Motion Cervical Spine Active Degrees Flexion 62 Extension 50 Rotation Left 55 Rotation Right 50 Lateral Flexion Left 29 Lateral Flexion Right 32 Comments pain w/r rot, L rot tight, ext pain post;tight B SB Shoulder Goniometric Range of Motion Shoulder Right Active Flexion 153 Extension 51 Abduction 158 External Rotation at 90 degrees 95 Abduction External Rotation at 0 degrees Abduction 69 Internal Rotation Behind Back (text) T10 Comments pain end range of motion or tightness Left Active Flexion 156 Extension 70 Abduction 180 External Rotation at 90 degrees 95 Abduction External Rotation at 0 degrees Abduction 52 Internal Rotation Behind Back (text) T6 PT-OP-L Special Tests Start: 11/26/22 09:54 Freq: Status: Active Protocol: Document 11/26/22 09:54 [facility] (Rec: 11/26/22 10:36 [facility] [id number]) Special Tests Shoulder Special Tests Garcia Michael Impingement Test Results neg Neer Impingement Test Results neg Empty Can Test Results neg Hip Special Tests Bev's Test Results mild tightness L Slump Test Results neg B Straight Leg Raise Test Results positive limited B Neural Special Tests- Upper Body Median Nerve Tension Test Results positve R tension Ulnar Nerve Tension Test Results neg Radial Nerve Tension Test Results neg PT-OP-M Strength Start: 11/26/22 09:54 Freq: Status: Active Protocol: Document 02/03/23 10:33 [facility] (Rec: 02/03/23 11:20 [facility] [id number]) Shoulder Strength Shoulder Manual Muscle Testing Right Flexion 4+ Good+ Extension 4+ Good+ Abduction (C5) 4+ Good+ External Rotation 4+ Good+ Internal Rotation 4+ Good+ Left Flexion 5 Normal Extension 5 Normal Abduction (C5) 5 Normal External Rotation 5 Normal Internal Rotation 5 Normal Hip Strength Hip Manual Muscle Testing Right Flexion (L2) 4+ Good+ Extension (S1) 4- Good- Abduction 4 Good Adduction 5 Normal External Rotation 3+ Fair+ Internal Rotation 5 Normal Left Flexion (L2) 4 Good Extension (S1) 4- Good- Abduction 4 Good Adduction 5 Normal External Rotation 4- Good- Internal Rotation 4- Good- Knee Strength Knee Manual Muscle Testing Right Flexion (S2) 5 Normal Extension (L3) 5 Normal Left Flexion (S2) 5 Normal Extension (L3) 4+ Good+ Ankle/Foot Strength Ankle and Foot Manual Muscle Testing Right Dorsiflexion (L4) 5 Normal Plantarflexion (S1) 5 Normal Inversion 5 Normal Eversion (S1) 5 Normal Comments cues to keep knee straight R>L Left Dorsiflexion (L4) 5 Normal Plantarflexion (S1) 5 Normal Inversion 5 Normal Eversion (S1) 5 Normal Comments 20 heel raises B ; fatigue in calf; sore post thigh PT-OP-Q Treatments Start: 11/26/22 09:54 Freq: Status: Active Protocol: Document 03/05/23 10:48 [facility] (Rec: 03/05/23 12:07 [facility] [id number]) Manual Therapy Treatment Soft Tissue Mobilization UE Body Location R along radial n pathway w/ radial n glide Mobilization Type Myofascial Release,Sustained Pressure Intensity/Depth Moderate Superior Body Location R UT & LS & scalenes FM Mobilization Type Rolling Intensity/Depth Moderate Comments supine w/cervical rot and breathing Joint Mobilizations thoracic Comments transverse glide T5-10 L FM ribs Comments R rib 7 downward torsion & ribs 3-5 PA FM R AC Joint B ant clavicle FM PT-OP-R Modalities Start: 11/26/22 09:54 Freq: Status: Active Protocol: Document 02/20/23 15:24 [facility] (Rec: 02/20/23 15:29 [facility] [id number]) Hot Pack/Cold Pack Treatment Cold Pack Location R shoulder & ribcage Treatment Duration (minutes) 10 PT-OP-T Assessment and Plan Start: 11/26/22 09:54 Freq: Status: Active Protocol: Document 03/05/23 10:48 [facility] (Rec: 03/05/23 12:07 [facility] [id number]) Physical Therapy Assessment Goals balance Skilled Nursing Goal (LTG) pt will be able to do SLS for 10 sec B 02/03:19 sec R; 12 sec L but lat hip shear and UE flailing- goal met advance to 10 sec SLS w/hands at hips and no lat hip shear LTG Duration 7/10 ROM Sccm Administrator Goal (LTG) Pt will have R Shoulder AROM equal to L shoulder in order to allow for donning/doffing bra, reaching overhead, etc. 02/03-much improved but still limited -still can't get bra on/off post but can lift ahead LTG Duration 04/28/23 strength Short Term Goal (STG) Pt will be indep w/HEP STG Duration achieved advancing as able Skilled Nursing Goal (LTG) pt will score at least 3/5 on LPM and EFT and at least 4+/5 on BUE and BLE MMT to show improved stability in order to do her job and daily activities w/less pain. 02/03-goal met w/UE strength; LE strength still limited and EFT & LPM LTG Duration 04/28 work Skilled Nursing Goal (LTG) Pt will be able to carry and pull the objects she needs without inc pain. 02/03-has been limiting; still painful LTG Duration 04/28/23 Assessment Summary Assessment Pt had improved IR about 1 in further up back after manual and improved abd ROM. She cont to improve w/overall shoulder ROM. Improved B rotation thoracic and R neck rot w/ manaul Physical Therapy Plan Frequency and Duration Frequency of Treatment 2x/Week Duration of treatment (weeks) 12 Plan of Care Start Date 02/03/23 Plan of Care End Date 04/28/23 Next Visit Focus/Plan Next Note Type Treatment Note Next Visit Plan focus on post dep R & other PNF patterns; work on ribs 5-7 to improve scap mobility
--- NOTE | 2023-03-10 16:02 | PT.OTN ---
Current Diagnoses Other chronic pain (03/10/23) Pain in right shoulder (03/10/23) Pain in left thigh (03/10/23) Fibromyalgia (03/10/23) Difficulty in walking, not elsewhere classified (03/10/23) Abnormal posture (03/10/23) Weakness (03/10/23) Physical Therapy Treatment Note PT-OP-A Visit Information Start: 11/26/22 09:54 Freq: Status: Active Protocol: Document 03/10/23 15:53 [facility] (Rec: 03/10/23 16:02 [facility] [id number]) Out-Patient Physical Therapy Visit Information Visit Information Visit Type Treatment Note Visit Start Time 10:07 Visit Stop Time 10:46 Total Visit Minutes 39 Visit Number 25 Number of [employer] Visits 0 PT-OP-B Current Condition Start: 11/26/22 09:54 Freq: Status: Active Protocol: Document 11/26/22 09:54 [facility] (Rec: 11/26/22 10:36 [facility] [id number]) Current Condition History of Current Condition Onset Date 1-1.5 ear ago Current Complaints R shoulder pain & L hip and leg pain History of Current Condition Pt reports about 1-1.5 years ago, 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 She has fibromyalgia so she has travelling pain. The things she can't do when things are behind her. She has trouble carrying things up narrow hallways and w/pulling things. It wasn't a one time thing but more of a gradual thing. Her xray didn't show much, but MRI showed 5 things that were moderate. 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 The ortho gave a cortizone shot that gave 3-4 weeks and got a different shot in a different location and when that block wore off, she had extreme pain for 18 hours but it didn't help. She went to OT w/Vivian at [facility]. She has been seeing a naturopathic doctor and has been doing prolo and feels like that is helping her. She used to lose her power when she was reaching overhead but that is better. Her main concern in ROM. She is doing a lot of stretches from the OT. Pt woke up 2 weeks ago w/ really bad L hip pain and it is keeping her up and night and it is radiating down L lat and ant down through lower leg. Pt has head pressure when she bends over that lasts until she sits back up. Has been having sleep issues but did do a sleep study. Treatment Goals Patient/Caregiver Goals Wants to be able to IR behind back so she can put on a bra. PT-OP-C Subjective Start: 11/26/22 09:54 Freq: Status: Active Protocol: Document 03/10/23 15:53 [facility] (Rec: 03/10/23 16:02 [facility] [id number]) OP-PT Subjective Patient Comments Patient Comments Pt reports she didn't get her exercises in this weekend d/t busy PT-OP-D Balance Start: 11/26/22 09:54 Freq: Status: Active Protocol: Document 11/26/22 09:54 [facility] (Rec: 11/26/22 10:36 [facility] [id number]) Balance Tests Single Limb Standing Single Limb- Right 5 sec Single Limb- Left 7 sec PT-OP-F Manual Assessment Start: 11/26/22 09:54 Freq: Status: Active Protocol: Document 11/26/22 09:54 [facility] (Rec: 11/26/22 10:36 [facility] [id number]) Manual Assessments Joint Mobility Assessment Joint Mobility Assessment equal greater troch and iliac crests B; sidebent to R, R shoulder lower than L, Humerus R is ant in glenoid PT-OP-G Mobility & Gait Start: 11/26/22 09:54 Freq: Status: Active Protocol: Document 11/26/22 09:54 [facility] (Rec: 11/26/22 10:36 [facility] [id number]) OP Gait Assessment Comments Gait Comments dec LUE swing, dec push off on LLE, excessive pelvis rotation PT-OP-J Posture/Palpation/Skin Start: 11/26/22 09:54 Freq: Status: Active Protocol: Document 02/03/23 10:33 [facility] (Rec: 02/03/23 11:20 [facility] [id number]) Posture Evaluation [place]oldan Postural Classification System Elbow Flexion Test 2 Lumbar Protective Mechanism Left AP 2 Lumbar Protective Mechanism Right AP 1 Lumbar Protective Mechanism Left PA 2 Lumbar Protective Mechanism Right PA 2 PT-OP-K Range of Motion Start: 11/26/22 09:54 Freq: Status: Active Protocol: Document 02/03/23 10:33 [facility] (Rec: 02/03/23 11:20 [facility] [id number]) Cervical Spine Range of Motion Cervical Spine Active Degrees Flexion 62 Extension 50 Rotation Left 55 Rotation Right 50 Lateral Flexion Left 29 Lateral Flexion Right 32 Comments pain w/r rot, L rot tight, ext pain post;tight B SB Shoulder Goniometric Range of Motion Shoulder Right Active Flexion 153 Extension 51 Abduction 158 External Rotation at 90 degrees 95 Abduction External Rotation at 0 degrees Abduction 69 Internal Rotation Behind Back (text) T10 Comments pain end range of motion or tightness Left Active Flexion 156 Extension 70 Abduction 180 External Rotation at 90 degrees 95 Abduction External Rotation at 0 degrees Abduction 52 Internal Rotation Behind Back (text) T6 PT-OP-L Special Tests Start: 11/26/22 09:54 Freq: Status: Active Protocol: Document 11/26/22 09:54 [facility] (Rec: 11/26/22 10:36 [facility] [id number]) Special Tests Shoulder Special Tests Garcia Michael Impingement Test Results neg Neer Impingement Test Results neg Empty Can Test Results neg Hip Special Tests Bev's Test Results mild tightness L Slump Test Results neg B Straight Leg Raise Test Results positive limited B Neural Special Tests- Upper Body Median Nerve Tension Test Results positve R tension Ulnar Nerve Tension Test Results neg Radial Nerve Tension Test Results neg PT-OP-M Strength Start: 11/26/22 09:54 Freq: Status: Active Protocol: Document 02/03/23 10:33 [facility] (Rec: 02/03/23 11:20 [facility] [id number]) Shoulder Strength Shoulder Manual Muscle Testing Right Flexion 4+ Good+ Extension 4+ Good+ Abduction (C5) 4+ Good+ External Rotation 4+ Good+ Internal Rotation 4+ Good+ Left Flexion 5 Normal Extension 5 Normal Abduction (C5) 5 Normal External Rotation 5 Normal Internal Rotation 5 Normal Hip Strength Hip Manual Muscle Testing Right Flexion (L2) 4+ Good+ Extension (S1) 4- Good- Abduction 4 Good Adduction 5 Normal External Rotation 3+ Fair+ Internal Rotation 5 Normal Left Flexion (L2) 4 Good Extension (S1) 4- Good- Abduction 4 Good Adduction 5 Normal External Rotation 4- Good- Internal Rotation 4- Good- Knee Strength Knee Manual Muscle Testing Right Flexion (S2) 5 Normal Extension (L3) 5 Normal Left Flexion (S2) 5 Normal Extension (L3) 4+ Good+ Ankle/Foot Strength Ankle and Foot Manual Muscle Testing Right Dorsiflexion (L4) 5 Normal Plantarflexion (S1) 5 Normal Inversion 5 Normal Eversion (S1) 5 Normal Comments cues to keep knee straight R>L Left Dorsiflexion (L4) 5 Normal Plantarflexion (S1) 5 Normal Inversion 5 Normal Eversion (S1) 5 Normal Comments 20 heel raises B ; fatigue in calf; sore post thigh PT-OP-Q Treatments Start: 11/26/22 09:54 Freq: Status: Active Protocol: Document 03/10/23 15:53 [facility] (Rec: 03/10/23 16:02 [facility] [id number]) Manual Therapy Treatment Soft Tissue Mobilization UE Body Location R circumfrential w/IR Mobilization Type Myofascial Release,Sustained Pressure Intensity/Depth Moderate pec Body Location Rant pec & sup shoulder Mobilization Type Myofascial Release Comments w/IR Joint Mobilizations GH Joint R post FM ribs Comments R downward general FM w/ breathing PT-OP-R Modalities Start: 11/26/22 09:54 Freq: Status: Active Protocol: Document 02/20/23 15:24 [facility] (Rec: 02/20/23 15:29 [facility] [id number]) Hot Pack/Cold Pack Treatment Cold Pack Location R shoulder & ribcage Treatment Duration (minutes) 10 PT-OP-T Assessment and Plan Start: 11/26/22 09:54 Freq: Status: Active Protocol: Document 03/10/23 15:53 [facility] (Rec: 03/10/23 16:02 [facility] [id number]) Physical Therapy Assessment Goals balance Shed Hand Goal (LTG) pt will be able to do SLS for 10 sec B 02/03:19 sec R; 12 sec L but lat hip shear and UE flailing- goal met advance to 10 sec SLS w/hands at hips and no lat hip shear LTG Duration 04/28 ROM Senior Living Goal (LTG) Pt will have R Shoulder AROM equal to L shoulder in order to allow for donning/doffing bra, reaching overhead, etc. 02/03-much improved but still limited -still can't get bra on/off post but can lift ahead LTG Duration 04/28/23 strength Short Term Goal (STG) Pt will be indep w/HEP STG Duration achieved advancing as able Shed Hand Goal (LTG) pt will score at least 3/5 on LPM and EFT and at least 4+/5 on BUE and BLE MMT to show improved stability in order to do her job and daily activities w/less pain. 02/03-goal met w/UE strength; LE strength still limited and EFT & LPM LTG Duration 04/28 work Senior Living Goal (LTG) Pt will be able to carry and pull the objects she needs without inc pain. 02/03-has been limiting; still painful LTG Duration 04/28/23 Assessment Summary Assessment Pt had improved IR today since last time at about T8 and after manual could go further up slightly. She still has restricted scap mobiltiy affecting her abiltiy to up her back. Physical Therapy Plan Frequency and Duration Frequency of Treatment 2x/Week Duration of treatment (weeks) 12 Plan of Care Start Date 02/03/23 Plan of Care End Date 04/28/23 Next Visit Focus/Plan Next Note Type Treatment Note Next Visit Plan focus on post dep R & other PNF patterns; work on ribs 5-7 to improve scap mobility
--- NOTE | 2023-03-13 17:42 | PT.OTN ---
Current Diagnoses Other chronic pain (03/13/23) Pain in right shoulder (03/13/23) Pain in left thigh (03/13/23) Fibromyalgia (03/13/23) Difficulty in walking, not elsewhere classified (03/13/23) Abnormal posture (03/13/23) Weakness (03/13/23) Physical Therapy Treatment Note PT-OP-A Visit Information Start: 11/26/22 09:54 Freq: Status: Active Protocol: Document 03/13/23 14:09 [facility] (Rec: 03/13/23 17:42 [facility] [id number]) Out-Patient Physical Therapy Visit Information Visit Information Visit Type Treatment Note Visit Start Time 14:20 Visit Stop Time 15:00 Total Visit Minutes 40 Visit Number 26 Number of SPECIAL LOAN OFFICER Visits 0 PT-OP-B Current Condition Start: 11/26/22 09:54 Freq: Status: Active Protocol: Document 11/26/22 09:54 [facility] (Rec: 11/26/22 10:36 [facility] [id number]) Current Condition History of Current Condition Onset Date 1-1.5 ear ago Current Complaints R shoulder pain & L hip and leg pain History of Current Condition Pt reports about 1-1.5 years ago, 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 She has fibromyalgia so she has travelling pain. The things she can't do when things are behind her. She has trouble carrying things up narrow hallways and w/pulling things. It wasn't a one time thing but more of a gradual thing. Her xray didn't show much, but MRI showed 5 things that were moderate. 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 The ortho gave a cortizone shot that gave 3-4 weeks and got a different shot in a different location and when that block wore off, she had extreme pain for 18 hours but it didn't help. She went to OT w/Vivian at [facility]. She has been seeing a naturopathic doctor and has been doing prolo and feels like that is helping her. She used to lose her power when she was reaching overhead but that is better. Her main concern in ROM. She is doing a lot of stretches from the OT. Pt woke up 2 weeks ago w/ really bad L hip pain and it is keeping her up and night and it is radiating down L lat and ant down through lower leg. Pt has head pressure when she bends over that lasts until she sits back up. Has been having sleep issues but did do a sleep study. Treatment Goals Patient/Caregiver Goals Wants to be able to IR behind back so she can put on a bra. PT-OP-C Subjective Start: 11/26/22 09:54 Freq: Status: Active Protocol: Document 03/13/23 14:09 [facility] (Rec: 03/13/23 17:42 [facility] [id number]) OP-PT Subjective Patient Comments Patient Comments Pt feels like PT cont to help and she get a litte more each time Patient Reported Progress Improving PT-OP-D Balance Start: 11/26/22 09:54 Freq: Status: Active Protocol: Document 11/26/22 09:54 [facility] (Rec: 11/26/22 10:36 [facility] [id number]) Balance Tests Single Limb Standing Single Limb- Right 5 sec Single Limb- Left 7 sec PT-OP-F Manual Assessment Start: 11/26/22 09:54 Freq: Status: Active Protocol: Document 11/26/22 09:54 [facility] (Rec: 11/26/22 10:36 [facility] [id number]) Manual Assessments Joint Mobility Assessment Joint Mobility Assessment equal greater troch and iliac crests B; sidebent to R, R shoulder lower than L, Humerus R is ant in glenoid PT-OP-G Mobility & Gait Start: 11/26/22 09:54 Freq: Status: Active Protocol: Document 11/26/22 09:54 [facility] (Rec: 11/26/22 10:36 [facility] [id number]) OP Gait Assessment Comments Gait Comments dec LUE swing, dec push off on LLE, excessive pelvis rotation PT-OP-J Posture/Palpation/Skin Start: 11/26/22 09:54 Freq: Status: Active Protocol: Document 02/03/23 10:33 [facility] (Rec: 02/03/23 11:20 [facility] [id number]) Posture Evaluation [facility] Postural Classification System Elbow Flexion Test 2 Lumbar Protective Mechanism Left AP 2 Lumbar Protective Mechanism Right AP 1 Lumbar Protective Mechanism Left PA 2 Lumbar Protective Mechanism Right PA 2 PT-OP-K Range of Motion Start: 11/26/22 09:54 Freq: Status: Active Protocol: Document 02/03/23 10:33 [facility] (Rec: 02/03/23 11:20 [facility] [id number]) Cervical Spine Range of Motion Cervical Spine Active Degrees Flexion 62 Extension 50 Rotation Left 55 Rotation Right 50 Lateral Flexion Left 29 Lateral Flexion Right 32 Comments pain w/r rot, L rot tight, ext pain post;tight B SB Shoulder Goniometric Range of Motion Shoulder Right Active Flexion 153 Extension 51 Abduction 158 External Rotation at 90 degrees 95 Abduction External Rotation at 0 degrees Abduction 69 Internal Rotation Behind Back (text) T10 Comments pain end range of motion or tightness Left Active Flexion 156 Extension 70 Abduction 180 External Rotation at 90 degrees 95 Abduction External Rotation at 0 degrees Abduction 52 Internal Rotation Behind Back (text) T6 PT-OP-L Special Tests Start: 11/26/22 09:54 Freq: Status: Active Protocol: Document 11/26/22 09:54 [facility] (Rec: 11/26/22 10:36 [facility] [id number]) Special Tests Shoulder Special Tests Garcia Michael Impingement Test Results neg Neer Impingement Test Results neg Empty Can Test Results neg Hip Special Tests Bev's Test Results mild tightness L Slump Test Results neg B Straight Leg Raise Test Results positive limited B Neural Special Tests- Upper Body Median Nerve Tension Test Results positve R tension Ulnar Nerve Tension Test Results neg Radial Nerve Tension Test Results neg PT-OP-M Strength Start: 11/26/22 09:54 Freq: Status: Active Protocol: Document 02/03/23 10:33 [facility] (Rec: 02/03/23 11:20 [facility] [id number]) Shoulder Strength Shoulder Manual Muscle Testing Right Flexion 4+ Good+ Extension 4+ Good+ Abduction (C5) 4+ Good+ External Rotation 4+ Good+ Internal Rotation 4+ Good+ Left Flexion 5 Normal Extension 5 Normal Abduction (C5) 5 Normal External Rotation 5 Normal Internal Rotation 5 Normal Hip Strength Hip Manual Muscle Testing Right Flexion (L2) 4+ Good+ Extension (S1) 4- Good- Abduction 4 Good Adduction 5 Normal External Rotation 3+ Fair+ Internal Rotation 5 Normal Left Flexion (L2) 4 Good Extension (S1) 4- Good- Abduction 4 Good Adduction 5 Normal External Rotation 4- Good- Internal Rotation 4- Good- Knee Strength Knee Manual Muscle Testing Right Flexion (S2) 5 Normal Extension (L3) 5 Normal Left Flexion (S2) 5 Normal Extension (L3) 4+ Good+ Ankle/Foot Strength Ankle and Foot Manual Muscle Testing Right Dorsiflexion (L4) 5 Normal Plantarflexion (S1) 5 Normal Inversion 5 Normal Eversion (S1) 5 Normal Comments cues to keep knee straight R>L Left Dorsiflexion (L4) 5 Normal Plantarflexion (S1) 5 Normal Inversion 5 Normal Eversion (S1) 5 Normal Comments 20 heel raises B ; fatigue in calf; sore post thigh PT-OP-Q Treatments Start: 11/26/22 09:54 Freq: Status: Active Protocol: Document 03/13/23 14:09 [facility] (Rec: 03/13/23 17:42 [facility] [id number]) Therapeutic Exercises Sidelying Exercises stretch Sidelying Exercise Name sleepr Side bilateral Reps/Minutes 30 sec Standing Exercises IR Standing Exercise Name 90/90 Side right Equipment Used peach Reps/Minutes 10 ER Standing Exercise Name 90/90 Side right Equipment Used peach Reps/Minutes 10 Comments cues for position Manual Therapy Treatment Soft Tissue Mobilization UE Body Location R circumfrential w/IR humerus and forearm Mobilization Type Myofascial Release,Sustained Pressure Intensity/Depth Moderate Superior Body Location B UT Comments w/fwd bend Joint Mobilizations elbow Joint R Comments 1.radioulnar PA FM 2.humeroulnar on axis FM GH Joint R post glide and translation and inf FM AC Joint R post clavicle and scap post PT-OP-R Modalities Start: 11/26/22 09:54 Freq: Status: Active Protocol: Document 02/20/23 15:24 [facility] (Rec: 02/20/23 15:29 [facility] [id number]) Hot Pack/Cold Pack Treatment Cold Pack Location R shoulder & ribcage Treatment Duration (minutes) 10 PT-OP-T Assessment and Plan Start: 11/26/22 09:54 Freq: Status: Active Protocol: Document 03/13/23 14:09 [facility] (Rec: 03/13/23 17:42 [facility] [id number]) Physical Therapy Assessment Goals balance Functional Tester Goal (LTG) pt will be able to do SLS for 10 sec B 17:19 sec R; 12 sec L but lat hip shear and UE flailing- goal met advance to 10 sec SLS w/hands at hips and no lat hip shear LTG Duration 04/28 ROM Functional Tester Goal (LTG) Pt will have R Shoulder AROM equal to L shoulder in order to allow for donning/doffing bra, reaching overhead, etc. 02/03-much improved but still limited -still can't get bra on/off post but can lift ahead LTG Duration 04/28/23 strength Short Term Goal (STG) Pt will be indep w/HEP STG Duration achieved advancing as able Functional Tester Goal (LTG) pt will score at least 3/5 on LPM and EFT and at least 4+/5 on BUE and BLE MMT to show improved stability in order to do her job and daily activities w/less pain. 02/03-goal met w/UE strength; LE strength still limited and EFT & LPM LTG Duration 04/28 work Functional Tester Goal (LTG) Pt will be able to carry and pull the objects she needs without inc pain. 02/03-has been limiting; still painful LTG Duration 04/28/23 Assessment Summary Assessment Pt cont to improve w/IR at 90 deg and was given some exercises to work on rotational stabiltiy away from body and stretching exercsies to help w/this. Physical Therapy Plan Frequency and Duration Frequency of Treatment 2x/Week Duration of treatment (weeks) 12 Plan of Care Start Date 02/03/23 Plan of Care End Date 04/28/23 Next Visit Focus/Plan Next Note Type Treatment Note Next Visit Plan focus on post dep R & other PNF patterns; work on ribs 5-7 to improve scap mobility
--- NOTE | 2023-03-20 15:25 | PT.OTN ---
Current Diagnoses Other chronic pain (03/20/23) Pain in right shoulder (03/20/23) Pain in left thigh (03/20/23) Fibromyalgia (03/20/23) Difficulty in walking, not elsewhere classified (03/20/23) Abnormal posture (03/20/23) Weakness (03/20/23) Physical Therapy Treatment Note PT-OP-A Visit Information Start: 11/26/22 09:54 Freq: Status: Active Protocol: Document 03/20/23 14:22 [facility] (Rec: 03/20/23 15:24 [facility] [id number]) Out-Patient Physical Therapy Visit Information Visit Information Visit Type Treatment Note Visit Start Time 14:21 Visit Stop Time 15:00 Total Visit Minutes 39 Visit Number 27 Number of CONSTRUCTION TECH Visits 0 PT-OP-B Current Condition Start: 11/26/22 09:54 Freq: Status: Active Protocol: Document 11/26/22 09:54 [facility] (Rec: 11/26/22 10:36 [facility] [id number]) Current Condition History of Current Condition Onset Date 1-1.5 ear ago Current Complaints R shoulder pain & L hip and leg pain History of Current Condition Pt reports about 1-1.5 years ago, 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 She has fibromyalgia so she has travelling pain. The things she can't do when things are behind her. She has trouble carrying things up narrow hallways and w/pulling things. It wasn't a one time thing but more of a gradual thing. Her xray didn't show much, but MRI showed 5 things that were moderate. 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 The ortho gave a cortizone shot that gave 3-4 weeks and got a different shot in a different location and when that block wore off, she had extreme pain for 18 hours but it didn't help. She went to OT w/Vivian at [facility]. She has been seeing a naturopathic doctor and has been doing prolo and feels like that is helping her. She used to lose her power when she was reaching overhead but that is better. Her main concern in ROM. She is doing a lot of stretches from the OT. Pt woke up 2 weeks ago w/ really bad L hip pain and it is keeping her up and night and it is radiating down L lat and ant down through lower leg. Pt has head pressure when she bends over that lasts until she sits back up. Has been having sleep issues but did do a sleep study. Treatment Goals Patient/Caregiver Goals Wants to be able to IR behind back so she can put on a bra. PT-OP-C Subjective Start: 11/26/22 09:54 Freq: Status: Active Protocol: Document 03/20/23 14:22 [facility] (Rec: 03/20/23 15:24 [facility] [id number]) OP-PT Subjective Patient Comments Patient Comments Pt reprots she felt a lot of strain in her neck when gardening. She typically feels pretty bad for a few days when that happens but was ok friday. Pt reprots her R hip started being pretty painful earlier this week and on tried to do all sorts of stretches and it is not as bad today. PT-OP-D Balance Start: 11/26/22 09:54 Freq: Status: Active Protocol: Document 11/26/22 09:54 [facility] (Rec: 11/26/22 10:36 [facility] [id number]) Balance Tests Single Limb Standing Single Limb- Right 5 sec Single Limb- Left 7 sec PT-OP-F Manual Assessment Start: 11/26/22 09:54 Freq: Status: Active Protocol: Document 11/26/22 09:54 [facility] (Rec: 11/26/22 10:36 [facility] [id number]) Manual Assessments Joint Mobility Assessment Joint Mobility Assessment equal greater troch and iliac crests B; sidebent to R, R shoulder lower than L, Humerus R is ant in glenoid PT-OP-G Mobility & Gait Start: 11/26/22 09:54 Freq: Status: Active Protocol: Document 11/26/22 09:54 [facility] (Rec: 11/26/22 10:36 [facility] [id number]) OP Gait Assessment Comments Gait Comments dec LUE swing, dec push off on LLE, excessive pelvis rotation PT-OP-J Posture/Palpation/Skin Start: 11/26/22 09:54 Freq: Status: Active Protocol: Document 02/03/23 10:33 [facility] (Rec: 02/03/23 11:20 [facility] [id number]) Posture Evaluation [facility] Postural Classification System Elbow Flexion Test 2 Lumbar Protective Mechanism Left AP 2 Lumbar Protective Mechanism Right AP 1 Lumbar Protective Mechanism Left PA 2 Lumbar Protective Mechanism Right PA 2 PT-OP-K Range of Motion Start: 11/26/22 09:54 Freq: Status: Active Protocol: Document 02/03/23 10:33 [facility] (Rec: 02/03/23 11:20 [facility] [id number]) Cervical Spine Range of Motion Cervical Spine Active Degrees Flexion 62 Extension 50 Rotation Left 55 Rotation Right 50 Lateral Flexion Left 29 Lateral Flexion Right 32 Comments pain w/r rot, L rot tight, ext pain post;tight B SB Shoulder Goniometric Range of Motion Shoulder Right Active Flexion 153 Extension 51 Abduction 158 External Rotation at 90 degrees 95 Abduction External Rotation at 0 degrees Abduction 69 Internal Rotation Behind Back (text) T10 Comments pain end range of motion or tightness Left Active Flexion 156 Extension 70 Abduction 180 External Rotation at 90 degrees 95 Abduction External Rotation at 0 degrees Abduction 52 Internal Rotation Behind Back (text) T6 PT-OP-L Special Tests Start: 11/26/22 09:54 Freq: Status: Active Protocol: Document 11/26/22 09:54 [facility] (Rec: 11/26/22 10:36 [facility] [id number]) Special Tests Shoulder Special Tests Garcia Michael Impingement Test Results neg Neer Impingement Test Results neg Empty Can Test Results neg Hip Special Tests Bev's Test Results mild tightness L Slump Test Results neg B Straight Leg Raise Test Results positive limited B Neural Special Tests- Upper Body Median Nerve Tension Test Results positve R tension Ulnar Nerve Tension Test Results neg Radial Nerve Tension Test Results neg PT-OP-M Strength Start: 11/26/22 09:54 Freq: Status: Active Protocol: Document 02/03/23 10:33 [facility] (Rec: 02/03/23 11:20 [facility] [id number]) Shoulder Strength Shoulder Manual Muscle Testing Right Flexion 4+ Good+ Extension 4+ Good+ Abduction (C5) 4+ Good+ External Rotation 4+ Good+ Internal Rotation 4+ Good+ Left Flexion 5 Normal Extension 5 Normal Abduction (C5) 5 Normal External Rotation 5 Normal Internal Rotation 5 Normal Hip Strength Hip Manual Muscle Testing Right Flexion (L2) 4+ Good+ Extension (S1) 4- Good- Abduction 4 Good Adduction 5 Normal External Rotation 3+ Fair+ Internal Rotation 5 Normal Left Flexion (L2) 4 Good Extension (S1) 4- Good- Abduction 4 Good Adduction 5 Normal External Rotation 4- Good- Internal Rotation 4- Good- Knee Strength Knee Manual Muscle Testing Right Flexion (S2) 5 Normal Extension (L3) 5 Normal Left Flexion (S2) 5 Normal Extension (L3) 4+ Good+ Ankle/Foot Strength Ankle and Foot Manual Muscle Testing Right Dorsiflexion (L4) 5 Normal Plantarflexion (S1) 5 Normal Inversion 5 Normal Eversion (S1) 5 Normal Comments cues to keep knee straight R>L Left Dorsiflexion (L4) 5 Normal Plantarflexion (S1) 5 Normal Inversion 5 Normal Eversion (S1) 5 Normal Comments 20 heel raises B ; fatigue in calf; sore post thigh PT-OP-Q Treatments Start: 11/26/22 09:54 Freq: Status: Active Protocol: Document 03/20/23 14:22 [facility] (Rec: 03/20/23 15:24 [facility] [id number]) Manual Therapy Treatment Soft Tissue Mobilization UE Body Location R superficial fasica release post shoudler and lat scap back Body Location R teres and lat & rhomboid FM w/IR Joint Mobilizations sternum Comments R AP FM GH Comments seated post shear glide FM ribs Comments rib 5 elevation FM; costosternal jts 2-3 & 5-7 & inf aspect FM gapping AC Joint R scap post w/percussion FM PT-OP-R Modalities Start: 11/26/22 09:54 Freq: Status: Active Protocol: Document 02/20/23 15:24 [facility] (Rec: 02/20/23 15:29 [facility] [id number]) Hot Pack/Cold Pack Treatment Cold Pack Location R shoulder & ribcage Treatment Duration (minutes) 10 PT-OP-T Assessment and Plan Start: 11/26/22 09:54 Freq: Status: Active Protocol: Document 03/20/23 14:22 [facility] (Rec: 03/20/23 15:24 [facility] [id number]) Physical Therapy Assessment Goals balance Skilled Nursing Goal (LTG) pt will be able to do SLS for 10 sec B 17:19 sec R; 12 sec L but lat hip shear and UE flailing- goal met advance to 10 sec SLS w/hands at hips and no lat hip shear LTG Duration 04/28 ROM Curtain Framer Goal (LTG) Pt will have R Shoulder AROM equal to L shoulder in order to allow for donning/doffing bra, reaching overhead, etc. 02/03-much improved but still limited -still can't get bra on/off post but can lift ahead LTG Duration 04/28/23 strength Short Term Goal (STG) Pt will be indep w/HEP STG Duration achieved advancing as able Curtain Framer Goal (LTG) pt will score at least 3/5 on LPM and EFT and at least 4+/5 on BUE and BLE MMT to show improved stability in order to do her job and daily activities w/less pain. 02/03-goal met w/UE strength; LE strength still limited and EFT & LPM LTG Duration 04/28 work Skilled Nursing Goal (LTG) Pt will be able to carry and pull the objects she needs without inc pain. 02/03-has been limiting; still painful LTG Duration 04/28/23 Assessment Summary Assessment Pt improved IR behind back by 1/2 in and had improved abilityt o get scap retraction after manual care today. Physical Therapy Plan Frequency and Duration Frequency of Treatment 2x/Week Duration of treatment (weeks) 12 Plan of Care Start Date 02/03/23 Plan of Care End Date 04/28/23 Next Visit Focus/Plan Next Note Type Treatment Note Next Visit Plan Work on IR ability; overhead mobs w/dowel GH and AC & fascial work
--- NOTE | 2023-03-25 18:26 | PT.OTN ---
Current Diagnoses Other chronic pain (03/25/23) Pain in right shoulder (03/25/23) Pain in left thigh (03/25/23) Fibromyalgia (03/25/23) Difficulty in walking, not elsewhere classified (03/25/23) Abnormal posture (03/25/23) Weakness (03/25/23) Physical Therapy Treatment Note PT-OP-A Visit Information Start: 11/26/22 09:54 Freq: Status: Active Protocol: Document 03/25/23 15:20 [facility] (Rec: 03/25/23 18:26 [facility] [id number]) Out-Patient Physical Therapy Visit Information Visit Information Visit Type Treatment Note Visit Start Time 15:20 Visit Stop Time 16:00 Total Visit Minutes 40 Visit Number 28 Number of DIRECTOR OPERATING ROOM Visits 0 PT-OP-B Current Condition Start: 11/26/22 09:54 Freq: Status: Active Protocol: Document 11/26/22 09:54 [facility] (Rec: 11/26/22 10:36 [facility] [id number]) Current Condition History of Current Condition Onset Date 1-1.5 ear ago Current Complaints R shoulder pain & L hip and leg pain History of Current Condition Pt reports about 1-1.5 years ago, 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 She has fibromyalgia so she has travelling pain. The things she can't do when things are behind her. She has trouble carrying things up narrow hallways and w/pulling things. It wasn't a one time thing but more of a gradual thing. Her xray didn't show much, but MRI showed 5 things that were moderate. 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 The ortho gave a cortizone shot that gave 3-4 weeks and got a different shot in a different location and when that block wore off, she had extreme pain for 18 hours but it didn't help. She went to OT w/Vivian at [facility]. She has been seeing a naturopathic doctor and has been doing prolo and feels like that is helping her. She used to lose her power when she was reaching overhead but that is better. Her main concern in ROM. She is doing a lot of stretches from the OT. Pt woke up 2 weeks ago w/ really bad L hip pain and it is keeping her up and night and it is radiating down L lat and ant down through lower leg. Pt has head pressure when she bends over that lasts until she sits back up. Has been having sleep issues but did do a sleep study. Treatment Goals Patient/Caregiver Goals Wants to be able to IR behind back so she can put on a bra. PT-OP-C Subjective Start: 11/26/22 09:54 Freq: Status: Active Protocol: Document 03/25/23 15:20 [facility] (Rec: 03/25/23 18:26 [facility] [id number]) OP-PT Subjective Patient Comments Patient Comments Pt reports soreness in ant ribcage and R shoulder area. PT-OP-D Balance Start: 11/26/22 09:54 Freq: Status: Active Protocol: Document 11/26/22 09:54 [facility] (Rec: 11/26/22 10:36 [facility] [id number]) Balance Tests Single Limb Standing Single Limb- Right 5 sec Single Limb- Left 7 sec PT-OP-F Manual Assessment Start: 11/26/22 09:54 Freq: Status: Active Protocol: Document 11/26/22 09:54 [facility] (Rec: 11/26/22 10:36 [facility] [id number]) Manual Assessments Joint Mobility Assessment Joint Mobility Assessment equal greater troch and iliac crests B; sidebent to R, R shoulder lower than L, Humerus R is ant in glenoid PT-OP-G Mobility & Gait Start: 11/26/22 09:54 Freq: Status: Active Protocol: Document 11/26/22 09:54 [facility] (Rec: 11/26/22 10:36 [facility] [id number]) OP Gait Assessment Comments Gait Comments dec LUE swing, dec push off on LLE, excessive pelvis rotation PT-OP-J Posture/Palpation/Skin Start: 11/26/22 09:54 Freq: Status: Active Protocol: Document 02/03/23 10:33 [facility] (Rec: 02/03/23 11:20 [facility] [id number]) Posture Evaluation Rlodan Postural Classification System Elbow Flexion Test 2 Lumbar Protective Mechanism Left AP 2 Lumbar Protective Mechanism Right AP 1 Lumbar Protective Mechanism Left PA 2 Lumbar Protective Mechanism Right PA 2 PT-OP-K Range of Motion Start: 11/26/22 09:54 Freq: Status: Active Protocol: Document 02/03/23 10:33 [facility] (Rec: 02/03/23 11:20 [facility] [id number]) Cervical Spine Range of Motion Cervical Spine Active Degrees Flexion 62 Extension 50 Rotation Left 55 Rotation Right 50 Lateral Flexion Left 29 Lateral Flexion Right 32 Comments pain w/r rot, L rot tight, ext pain post;tight B SB Shoulder Goniometric Range of Motion Shoulder Right Active Flexion 153 Extension 51 Abduction 158 External Rotation at 90 degrees 95 Abduction External Rotation at 0 degrees Abduction 69 Internal Rotation Behind Back (text) T10 Comments pain end range of motion or tightness Left Active Flexion 156 Extension 70 Abduction 180 External Rotation at 90 degrees 95 Abduction External Rotation at 0 degrees Abduction 52 Internal Rotation Behind Back (text) T6 PT-OP-L Special Tests Start: 11/26/22 09:54 Freq: Status: Active Protocol: Document 11/26/22 09:54 [facility] (Rec: 11/26/22 10:36 [facility] [id number]) Special Tests Shoulder Special Tests Garcia Michael Impingement Test Results neg Neer Impingement Test Results neg Empty Can Test Results neg Hip Special Tests Bev's Test Results mild tightness L Slump Test Results neg B Straight Leg Raise Test Results positive limited B Neural Special Tests- Upper Body Median Nerve Tension Test Results positve R tension Ulnar Nerve Tension Test Results neg Radial Nerve Tension Test Results neg PT-OP-M Strength Start: 11/26/22 09:54 Freq: Status: Active Protocol: Document 02/03/23 10:33 [facility] (Rec: 02/03/23 11:20 [facility] [id number]) Shoulder Strength Shoulder Manual Muscle Testing Right Flexion 4+ Good+ Extension 4+ Good+ Abduction (C5) 4+ Good+ External Rotation 4+ Good+ Internal Rotation 4+ Good+ Left Flexion 5 Normal Extension 5 Normal Abduction (C5) 5 Normal External Rotation 5 Normal Internal Rotation 5 Normal Hip Strength Hip Manual Muscle Testing Right Flexion (L2) 4+ Good+ Extension (S1) 4- Good- Abduction 4 Good Adduction 5 Normal External Rotation 3+ Fair+ Internal Rotation 5 Normal Left Flexion (L2) 4 Good Extension (S1) 4- Good- Abduction 4 Good Adduction 5 Normal External Rotation 4- Good- Internal Rotation 4- Good- Knee Strength Knee Manual Muscle Testing Right Flexion (S2) 5 Normal Extension (L3) 5 Normal Left Flexion (S2) 5 Normal Extension (L3) 4+ Good+ Ankle/Foot Strength Ankle and Foot Manual Muscle Testing Right Dorsiflexion (L4) 5 Normal Plantarflexion (S1) 5 Normal Inversion 5 Normal Eversion (S1) 5 Normal Comments cues to keep knee straight R>L Left Dorsiflexion (L4) 5 Normal Plantarflexion (S1) 5 Normal Inversion 5 Normal Eversion (S1) 5 Normal Comments 20 heel raises B ; fatigue in calf; sore post thigh PT-OP-Q Treatments Start: 11/26/22 09:54 Freq: Status: Active Protocol: Document 03/25/23 15:20 [facility] (Rec: 03/25/23 18:26 [facility] [id number]) Manual Therapy Treatment Joint Mobilizations thoracic Comments PA T7-9 FM cat/cow GH Comments R post glide FM w/manual faciltaiton at end range and given for HEP hold AC Joint R scap post and clavicle ant FM PT-OP-R Modalities Start: 11/26/22 09:54 Freq: Status: Active Protocol: Document 02/20/23 15:24 [facility] (Rec: 02/20/23 15:29 [facility] [id number]) Hot Pack/Cold Pack Treatment Cold Pack Location R shoulder & ribcage Treatment Duration (minutes) 10 PT-OP-T Assessment and Plan Start: 11/26/22 09:54 Freq: Status: Active Protocol: Document 03/25/23 15:20 [facility] (Rec: 03/25/23 18:26 [facility] [id number]) Physical Therapy Assessment Goals balance Halfway Goal (LTG) pt will be able to do SLS for 10 sec B 02/03:19 sec R; 12 sec L but lat hip shear and UE flailing- goal met advance to 10 sec SLS w/hands at hips and no lat hip shear LTG Duration 04/28 ROM Machine Stripper Cutter Goal (LTG) Pt will have R Shoulder AROM equal to L shoulder in order to allow for donning/doffing bra, reaching overhead, etc. 02/03-much improved but still limited -still can't get bra on/off post but can lift ahead LTG Duration 04/28/23 strength Short Term Goal (STG) Pt will be indep w/HEP STG Duration achieved advancing as able Halfway Goal (LTG) pt will score at least 3/5 on LPM and EFT and at least 4+/5 on BUE and BLE MMT to show improved stability in order to do her job and daily activities w/less pain. 02/03-goal met w/UE strength; LE strength still limited and EFT & LPM LTG Duration 04/28 work Machine Stripper Cutter Goal (LTG) Pt will be able to carry and pull the objects she needs without inc pain. 02/03-has been limiting; still painful LTG Duration 04/28/23 Assessment Summary Assessment Pt had improved ROM overhead and improved tspine ext w/ manual treatment today. Physical Therapy Plan Frequency and Duration Frequency of Treatment 2x/Week Duration of treatment (weeks) 12 Plan of Care Start Date 02/03/23 Plan of Care End Date 04/28/23 Next Visit Focus/Plan Next Note Type Treatment Note Next Visit Plan Work on IR ability; overhead mobs w/dowel GH and AC & fascial work
--- NOTE | 2023-04-08 16:43 | PT.OTN ---
Current Diagnoses Other chronic pain (04/08/23) Pain in right shoulder (04/08/23) Pain in left thigh (04/08/23) Fibromyalgia (04/08/23) Difficulty in walking, not elsewhere classified (04/08/23) Abnormal posture (04/08/23) Weakness (04/08/23) Physical Therapy Treatment Note PT-OP-A Visit Information Start: 11/26/22 09:54 Freq: Status: Active Protocol: Document 04/08/23 11:20 [facility] (Rec: 04/08/23 16:43 [facility] [id number]) Out-Patient Physical Therapy Visit Information Visit Information Visit Type Treatment Note Visit Start Time 11:22 Visit Stop Time 12:02 Total Visit Minutes 40 Visit Number 29 Number of HOSPITALITY DIRECTOR Visits 0 PT-OP-B Current Condition Start: 11/26/22 09:54 Freq: Status: Active Protocol: Document 11/26/22 09:54 [facility] (Rec: 11/26/22 10:36 [facility] [id number]) Current Condition History of Current Condition Onset Date 1-1.5 ear ago Current Complaints R shoulder pain & L hip and leg pain History of Current Condition Pt reports about 1-1.5 years ago, 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 She has fibromyalgia so she has travelling pain. The things she can't do when things are behind her. She has trouble carrying things up narrow hallways and w/pulling things. It wasn't a one time thing but more of a gradual thing. Her xray didn't show much, but MRI showed 5 things that were moderate. 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 The ortho gave a cortizone shot that gave 3-4 weeks and got a different shot in a different location and when that block wore off, she had extreme pain for 18 hours but it didn't help. She went to OT w/Vivian at [facility]. She has been seeing a naturopathic doctor and has been doing prolo and feels like that is helping her. She used to lose her power when she was reaching overhead but that is better. Her main concern in ROM. She is doing a lot of stretches from the OT. Pt woke up 2 weeks ago w/ really bad L hip pain and it is keeping her up and night and it is radiating down L lat and ant down through lower leg. Pt has head pressure when she bends over that lasts until she sits back up. Has been having sleep issues but did do a sleep study. Treatment Goals Patient/Caregiver Goals Wants to be able to IR behind back so she can put on a bra. PT-OP-C Subjective Start: 11/26/22 09:54 Freq: Status: Active Protocol: Document 04/08/23 11:20 [facility] (Rec: 04/08/23 16:43 [facility] [id number]) OP-PT Subjective Patient Comments Patient Comments Pt reports she has been really busy recently. She has had some good and bad days. notes she has mostly noticed some soreness in ant lower ribcage region. PT-OP-D Balance Start: 11/26/22 09:54 Freq: Status: Active Protocol: Document 11/26/22 09:54 [facility] (Rec: 11/26/22 10:36 [facility] [id number]) Balance Tests Single Limb Standing Single Limb- Right 5 sec Single Limb- Left 7 sec PT-OP-F Manual Assessment Start: 11/26/22 09:54 Freq: Status: Active Protocol: Document 11/26/22 09:54 [facility] (Rec: 11/26/22 10:36 [facility] [id number]) Manual Assessments Joint Mobility Assessment Joint Mobility Assessment equal greater troch and iliac crests B; sidebent to R, R shoulder lower than L, Humerus R is ant in glenoid PT-OP-G Mobility & Gait Start: 11/26/22 09:54 Freq: Status: Active Protocol: Document 11/26/22 09:54 [facility] (Rec: 11/26/22 10:36 [facility] [id number]) OP Gait Assessment Comments Gait Comments dec LUE swing, dec push off on LLE, excessive pelvis rotation PT-OP-J Posture/Palpation/Skin Start: 11/26/22 09:54 Freq: Status: Active Protocol: Document 02/03/23 10:33 [facility] (Rec: 02/03/23 11:20 [facility] [id number]) Posture Evaluation Roldan Postural Classification System Elbow Flexion Test 2 Lumbar Protective Mechanism Left AP 2 Lumbar Protective Mechanism Right AP 1 Lumbar Protective Mechanism Left PA 2 Lumbar Protective Mechanism Right PA 2 PT-OP-K Range of Motion Start: 11/26/22 09:54 Freq: Status: Active Protocol: Document 02/03/23 10:33 [facility] (Rec: 02/03/23 11:20 [facility] [id number]) Cervical Spine Range of Motion Cervical Spine Active Degrees Flexion 62 Extension 50 Rotation Left 55 Rotation Right 50 Lateral Flexion Left 29 Lateral Flexion Right 32 Comments pain w/r rot, L rot tight, ext pain post;tight B SB Shoulder Goniometric Range of Motion Shoulder Right Active Flexion 153 Extension 51 Abduction 158 External Rotation at 90 degrees 95 Abduction External Rotation at 0 degrees Abduction 69 Internal Rotation Behind Back (text) T10 Comments pain end range of motion or tightness Left Active Flexion 156 Extension 70 Abduction 180 External Rotation at 90 degrees 95 Abduction External Rotation at 0 degrees Abduction 52 Internal Rotation Behind Back (text) T6 PT-OP-L Special Tests Start: 11/26/22 09:54 Freq: Status: Active Protocol: Document 11/26/22 09:54 [facility] (Rec: 11/26/22 10:36 [facility] [id number]) Special Tests Shoulder Special Tests Garcia Michael Impingement Test Results neg Neer Impingement Test Results neg Empty Can Test Results neg Hip Special Tests Bev's Test Results mild tightness L Slump Test Results neg B Straight Leg Raise Test Results positive limited B Neural Special Tests- Upper Body Median Nerve Tension Test Results positve R tension Ulnar Nerve Tension Test Results neg Radial Nerve Tension Test Results neg PT-OP-M Strength Start: 11/26/22 09:54 Freq: Status: Active Protocol: Document 02/03/23 10:33 [facility] (Rec: 02/03/23 11:20 [facility] [id number]) Shoulder Strength Shoulder Manual Muscle Testing Right Flexion 4+ Good+ Extension 4+ Good+ Abduction (C5) 4+ Good+ External Rotation 4+ Good+ Internal Rotation 4+ Good+ Left Flexion 5 Normal Extension 5 Normal Abduction (C5) 5 Normal External Rotation 5 Normal Internal Rotation 5 Normal Hip Strength Hip Manual Muscle Testing Right Flexion (L2) 4+ Good+ Extension (S1) 4- Good- Abduction 4 Good Adduction 5 Normal External Rotation 3+ Fair+ Internal Rotation 5 Normal Left Flexion (L2) 4 Good Extension (S1) 4- Good- Abduction 4 Good Adduction 5 Normal External Rotation 4- Good- Internal Rotation 4- Good- Knee Strength Knee Manual Muscle Testing Right Flexion (S2) 5 Normal Extension (L3) 5 Normal Left Flexion (S2) 5 Normal Extension (L3) 4+ Good+ Ankle/Foot Strength Ankle and Foot Manual Muscle Testing Right Dorsiflexion (L4) 5 Normal Plantarflexion (S1) 5 Normal Inversion 5 Normal Eversion (S1) 5 Normal Comments cues to keep knee straight R>L Left Dorsiflexion (L4) 5 Normal Plantarflexion (S1) 5 Normal Inversion 5 Normal Eversion (S1) 5 Normal Comments 20 heel raises B ; fatigue in calf; sore post thigh PT-OP-Q Treatments Start: 11/26/22 09:54 Freq: Status: Active Protocol: Document 04/08/23 11:20 [facility] (Rec: 04/08/23 16:43 [facility] [id number]) Manual Therapy Treatment Joint Mobilizations sternum Comments xiphoid PA L FM SB to L FM ribs Comments L lower costal cartilages L FM ; costocondral junctions L FM rib7 &8 PA R ribs 4-6 FM supine seated SB ribs 10 adn 11 FM w/ R SB; L SB FM ribs 6-10 FM Neuro Re-Education Treatment Movement Re-Education Movement Re-education Activities 8 min: facilitation in supine w/diaphragmatic breathing both L and R but L>R ; working on deep breaths in through abdomen and lower ribcage and hold breath in and out to improve breathing control. PT-OP-R Modalities Start: 11/26/22 09:54 Freq: Status: Active Protocol: Document 02/20/23 15:24 [facility] (Rec: 02/20/23 15:29 [facility] [id number]) Hot Pack/Cold Pack Treatment Cold Pack Location R shoulder & ribcage Treatment Duration (minutes) 10 PT-OP-T Assessment and Plan Start: 11/26/22 09:54 Freq: Status: Active Protocol: Document 04/08/23 11:20 [facility] (Rec: 04/08/23 16:43 [facility] [id number]) Physical Therapy Assessment Goals balance Ramp Service Man Goal (LTG) pt will be able to do SLS for 10 sec B 4/17:19 sec R; 12 sec L but lat hip shear and UE flailing- goal met advance to 10 sec SLS w/hands at hips and no lat hip shear LTG Duration 04/28 ROM Correction Goal (LTG) Pt will have R Shoulder AROM equal to L shoulder in order to allow for donning/doffing bra, reaching overhead, etc. 02/03-much improved but still limited -still can't get bra on/off post but can lift ahead LTG Duration 04/28/23 strength Short Term Goal (STG) Pt will be indep w/HEP STG Duration achieved advancing as able Ramp Service Man Goal (LTG) pt will score at least 3/5 on LPM and EFT and at least 4+/5 on BUE and BLE MMT to show improved stability in order to do her job and daily activities w/less pain. 02/03-goal met w/UE strength; LE strength still limited and EFT & LPM LTG Duration 04/28 work Correction Goal (LTG) Pt will be able to carry and pull the objects she needs without inc pain. 02/03-has been limiting; still painful LTG Duration 04/28/23 Assessment Summary Assessment much improved B thoracic rotation and SB w/still some minor L SB limitation after manual but improved diaphragmatic breathing after. Pt tends to take shallow breaths but this did improve w /treatment Physical Therapy Plan Frequency and Duration Frequency of Treatment 2x/Week Duration of treatment (weeks) 12 Plan of Care Start Date 02/03/23 Plan of Care End Date 04/28/23 Next Visit Focus/Plan Next Note Type Treatment Note Next Visit Plan Work on IR ability; overhead mobs w/dowel GH and AC & fascial work
--- NOTE | 2023-04-17 19:27 | PT.OTN ---
Current Diagnoses Other chronic pain (04/17/23) Pain in right shoulder (04/17/23) Pain in left thigh (04/17/23) Fibromyalgia (04/17/23) Difficulty in walking, not elsewhere classified (04/17/23) Abnormal posture (04/17/23) Weakness (04/17/23) Physical Therapy Treatment Note PT-OP-A Visit Information Start: 11/26/22 09:54 Freq: Status: Active Protocol: Document 04/17/23 19:22 [facility] (Rec: 04/17/23 19:27 [facility] [id number]) Out-Patient Physical Therapy Visit Information Visit Information Visit Type Treatment Note Visit Start Time 17:00 Visit Stop Time 17:43 Total Visit Minutes 43 Visit Number 30 Number of DESKTOP MANAGER Visits 0 PT-OP-B Current Condition Start: 11/26/22 09:54 Freq: Status: Active Protocol: Document 11/26/22 09:54 [facility] (Rec: 11/26/22 10:36 [facility] [id number]) Current Condition History of Current Condition Onset Date 1-1.5 ear ago Current Complaints R shoulder pain & L hip and leg pain History of Current Condition Pt reports about 1-1.5 years ago, 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 She has fibromyalgia so she has travelling pain. The things she can't do when things are behind her. She has trouble carrying things up narrow hallways and w/pulling things. It wasn't a one time thing but more of a gradual thing. Her xray didn't show much, but MRI showed 5 things that were moderate. 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 The ortho gave a cortizone shot that gave 3-4 weeks and got a different shot in a different location and when that block wore off, she had extreme pain for 18 hours but it didn't help. She went to OT w/Vivian at [facility]. She has been seeing a naturopathic doctor and has been doing prolo and feels like that is helping her. She used to lose her power when she was reaching overhead but that is better. Her main concern in ROM. She is doing a lot of stretches from the OT. Pt woke up 2 weeks ago w/ really bad L hip pain and it is keeping her up and night and it is radiating down L lat and ant down through lower leg. Pt has head pressure when she bends over that lasts until she sits back up. Has been having sleep issues but did do a sleep study. Treatment Goals Patient/Caregiver Goals Wants to be able to IR behind back so she can put on a bra. PT-OP-C Subjective Start: 11/26/22 09:54 Freq: Status: Active Protocol: Document 04/17/23 19:22 [facility] (Rec: 04/17/23 19:27 [facility] [id number]) OP-PT Subjective Patient Comments Patient Comments pt reports she has noted tenderness at ribs and wants to cont to work on ability to IR RUE PT-OP-D Balance Start: 11/26/22 09:54 Freq: Status: Active Protocol: Document 11/26/22 09:54 [facility] (Rec: 11/26/22 10:36 [facility] [id number]) Balance Tests Single Limb Standing Single Limb- Right 5 sec Single Limb- Left 7 sec PT-OP-F Manual Assessment Start: 11/26/22 09:54 Freq: Status: Active Protocol: Document 11/26/22 09:54 [facility] (Rec: 11/26/22 10:36 [facility] [id number]) Manual Assessments Joint Mobility Assessment Joint Mobility Assessment equal greater troch and iliac crests B; sidebent to R, R shoulder lower than L, Humerus R is ant in glenoid PT-OP-G Mobility & Gait Start: 11/26/22 09:54 Freq: Status: Active Protocol: Document 11/26/22 09:54 [facility] (Rec: 11/26/22 10:36 [facility] [id number]) OP Gait Assessment Comments Gait Comments dec LUE swing, dec push off on LLE, excessive pelvis rotation PT-OP-J Posture/Palpation/Skin Start: 11/26/22 09:54 Freq: Status: Active Protocol: Document 02/03/23 10:33 [facility] (Rec: 02/03/23 11:20 [facility] [id number]) Posture Evaluation [place]an Postural Classification System Elbow Flexion Test 2 Lumbar Protective Mechanism Left AP 2 Lumbar Protective Mechanism Right AP 1 Lumbar Protective Mechanism Left PA 2 Lumbar Protective Mechanism Right PA 2 PT-OP-K Range of Motion Start: 11/26/22 09:54 Freq: Status: Active Protocol: Document 02/03/23 10:33 [facility] (Rec: 02/03/23 11:20 [facility] [id number]) Cervical Spine Range of Motion Cervical Spine Active Degrees Flexion 62 Extension 50 Rotation Left 55 Rotation Right 50 Lateral Flexion Left 29 Lateral Flexion Right 32 Comments pain w/r rot, L rot tight, ext pain post;tight B SB Shoulder Goniometric Range of Motion Shoulder Right Active Flexion 153 Extension 51 Abduction 158 External Rotation at 90 degrees 95 Abduction External Rotation at 0 degrees Abduction 69 Internal Rotation Behind Back (text) T10 Comments pain end range of motion or tightness Left Active Flexion 156 Extension 70 Abduction 180 External Rotation at 90 degrees 95 Abduction External Rotation at 0 degrees Abduction 52 Internal Rotation Behind Back (text) T6 PT-OP-L Special Tests Start: 11/26/22 09:54 Freq: Status: Active Protocol: Document 11/26/22 09:54 [facility] (Rec: 11/26/22 10:36 [facility] [id number]) Special Tests Shoulder Special Tests Garcia Michael Impingement Test Results neg Neer Impingement Test Results neg Empty Can Test Results neg Hip Special Tests Bev's Test Results mild tightness L Slump Test Results neg B Straight Leg Raise Test Results positive limited B Neural Special Tests- Upper Body Median Nerve Tension Test Results positve R tension Ulnar Nerve Tension Test Results neg Radial Nerve Tension Test Results neg PT-OP-M Strength Start: 11/26/22 09:54 Freq: Status: Active Protocol: Document 02/03/23 10:33 [facility] (Rec: 02/03/23 11:20 [facility] [id number]) Shoulder Strength Shoulder Manual Muscle Testing Right Flexion 4+ Good+ Extension 4+ Good+ Abduction (C5) 4+ Good+ External Rotation 4+ Good+ Internal Rotation 4+ Good+ Left Flexion 5 Normal Extension 5 Normal Abduction (C5) 5 Normal External Rotation 5 Normal Internal Rotation 5 Normal Hip Strength Hip Manual Muscle Testing Right Flexion (L2) 4+ Good+ Extension (S1) 4- Good- Abduction 4 Good Adduction 5 Normal External Rotation 3+ Fair+ Internal Rotation 5 Normal Left Flexion (L2) 4 Good Extension (S1) 4- Good- Abduction 4 Good Adduction 5 Normal External Rotation 4- Good- Internal Rotation 4- Good- Knee Strength Knee Manual Muscle Testing Right Flexion (S2) 5 Normal Extension (L3) 5 Normal Left Flexion (S2) 5 Normal Extension (L3) 4+ Good+ Ankle/Foot Strength Ankle and Foot Manual Muscle Testing Right Dorsiflexion (L4) 5 Normal Plantarflexion (S1) 5 Normal Inversion 5 Normal Eversion (S1) 5 Normal Comments cues to keep knee straight R>L Left Dorsiflexion (L4) 5 Normal Plantarflexion (S1) 5 Normal Inversion 5 Normal Eversion (S1) 5 Normal Comments 20 heel raises B ; fatigue in calf; sore post thigh PT-OP-Q Treatments Start: 11/26/22 09:54 Freq: Status: Active Protocol: Document 04/17/23 19:22 [facility] (Rec: 04/17/23 19:27 [facility] [id number]) Therapeutic Exercises Supine Exercises breathing Supine Exercise Name manual facilitation both sides of diaphram Reps/Minutes 3 min total Manual Therapy Treatment Soft Tissue Mobilization UE Body Location R superficial fasica release and circumfrential w/IR behind back &90/90 IR Joint Mobilizations thoracic Comments Transverse w/IR of RUE prone T2-4 and T6-7 FM GH Comments inf and post FM 90/90 IR PT-OP-R Modalities Start: 11/26/22 09:54 Freq: Status: Active Protocol: Document 02/20/23 15:24 [facility] (Rec: 02/20/23 15:29 [facility] [id number]) Hot Pack/Cold Pack Treatment Cold Pack Location R shoulder & ribcage Treatment Duration (minutes) 10 PT-OP-T Assessment and Plan Start: 11/26/22 09:54 Freq: Status: Active Protocol: Document 04/17/23 19:22 [facility] (Rec: 04/17/23 19:27 [facility] [id number]) Physical Therapy Assessment Goals balance Bottle Caser Goal (LTG) pt will be able to do SLS for 10 sec B 02/03:19 sec R; 12 sec L but lat hip shear and UE flailing- goal met advance to 10 sec SLS w/hands at hips and no lat hip shear LTG Duration 710 ROM Retirement Goal (LTG) Pt will have R Shoulder AROM equal to L shoulder in order to allow for donning/doffing bra, reaching overhead, etc. 02/03-much improved but still limited -still can't get bra on/off post but can lift ahead LTG Duration 04/28/23 strength Short Term Goal (STG) Pt will be indep w/HEP STG Duration achieved advancing as able Retirement Goal (LTG) pt will score at least 3/5 on LPM and EFT and at least 4+/5 on BUE and BLE MMT to show improved stability in order to do her job and daily activities w/less pain. 02/03-goal met w/UE strength; LE strength still limited and EFT & LPM LTG Duration 04/28 work Bottle Caser Goal (LTG) Pt will be able to carry and pull the objects she needs without inc pain. 02/03-has been limiting; still painful LTG Duration 04/28/23 Assessment Summary Assessment Pt had imrpoved IR in 90/90 position in supine that improved behind back pain IR w /less pain feeling. She had improved evenness of breathing after manual Physical Therapy Plan Frequency and Duration Frequency of Treatment 2x/Week Duration of treatment (weeks) 12 Plan of Care Start Date 02/03/23 Plan of Care End Date 04/28/23 Next Visit Focus/Plan Next Note Type Treatment Note Next Visit Plan Work on IR ability; overhead mobs w/dowel GH and AC & fascial work w/IR behidn back
--- NOTE | 2023-04-24 18:25 | PT.OTN ---
Current Diagnoses Other chronic pain (04/24/23) Pain in right shoulder (04/24/23) Pain in left thigh (04/24/23) Fibromyalgia (04/24/23) Difficulty in walking, not elsewhere classified (04/24/23) Abnormal posture (04/24/23) Weakness (04/24/23) Physical Therapy Treatment Note PT-OP-A Visit Information Start: 11/26/22 09:54 Freq: Status: Active Protocol: Document 04/24/23 10:54 [facility] (Rec: 04/24/23 18:25 [facility] [id number]) Out-Patient Physical Therapy Visit Information Visit Information Visit Type Progress Note Visit Start Time 10:55 Visit Stop Time 11:18 Total Visit Minutes 38 Visit Number 31 Number of DELIVERY SPECIALIST Visits 0 PT-OP-B Current Condition Start: 11/26/22 09:54 Freq: Status: Active Protocol: Document 11/26/22 09:54 [facility] (Rec: 11/26/22 10:36 [facility] [id number]) Current Condition History of Current Condition Onset Date 1-1.5 ear ago Current Complaints R shoulder pain & L hip and leg pain History of Current Condition Pt reports about 1-1.5 years ago, 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 She has fibromyalgia so she has travelling pain. The things she can't do when things are behind her. She has trouble carrying things up narrow hallways and w/pulling things. It wasn't a one time thing but more of a gradual thing. Her xray didn't show much, but MRI showed 5 things that were moderate. 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 The ortho gave a cortizone shot that gave 3-4 weeks and got a different shot in a different location and when that block wore off, she had extreme pain for 18 hours but it didn't help. She went to OT w/Vivian at [facility]. She has been seeing a naturopathic doctor and has been doing prolo and feels like that is helping her. She used to lose her power when she was reaching overhead but that is better. Her main concern in ROM. She is doing a lot of stretches from the OT. Pt woke up 2 weeks ago w/ really bad L hip pain and it is keeping her up and night and it is radiating down L lat and ant down through lower leg. Pt has head pressure when she bends over that lasts until she sits back up. Has been having sleep issues but did do a sleep study. Treatment Goals Patient/Caregiver Goals Wants to be able to IR behind back so she can put on a bra. PT-OP-C Subjective Start: 11/26/22 09:54 Freq: Status: Active Protocol: Document 04/24/23 10:54 [facility] (Rec: 04/24/23 18:25 [facility] [id number]) OP-PT Subjective Patient Comments Patient Comments Pt reports she cont to feel like her shoulder is better. She is working on lifting things w/both arms instead of just one and using good mechanics. PT-OP-D Balance Start: 11/26/22 09:54 Freq: Status: Active Protocol: Document 11/26/22 09:54 [facility] (Rec: 11/26/22 10:36 [facility] [id number]) Balance Tests Single Limb Standing Single Limb- Right 5 sec Single Limb- Left 7 sec PT-OP-F Manual Assessment Start: 11/26/22 09:54 Freq: Status: Active Protocol: Document 11/26/22 09:54 [facility] (Rec: 11/26/22 10:36 [facility] [id number]) Manual Assessments Joint Mobility Assessment Joint Mobility Assessment equal greater troch and iliac crests B; sidebent to R, R shoulder lower than L, Humerus R is ant in glenoid PT-OP-G Mobility & Gait Start: 11/26/22 09:54 Freq: Status: Active Protocol: Document 11/26/22 09:54 [facility] (Rec: 11/26/22 10:36 [facility] [id number]) OP Gait Assessment Comments Gait Comments dec LUE swing, dec push off on LLE, excessive pelvis rotation PT-OP-J Posture/Palpation/Skin Start: 11/26/22 09:54 Freq: Status: Active Protocol: Document 04/24/23 10:54 [facility] (Rec: 04/24/23 18:25 [facility] [id number]) Posture Evaluation [place] Postural Classification System Elbow Flexion Test 3 Lumbar Protective Mechanism Left AP 3 Lumbar Protective Mechanism Right AP 2 Lumbar Protective Mechanism Left PA 3 Lumbar Protective Mechanism Right PA 2 PT-OP-K Range of Motion Start: 11/26/22 09:54 Freq: Status: Active Protocol: Document 04/24/23 10:54 [facility] (Rec: 04/24/23 18:25 [facility] [id number]) Shoulder Goniometric Range of Motion Shoulder Right Active Flexion 154 Extension 74 Abduction 170 External Rotation at 90 degrees 105 Abduction External Rotation at 0 degrees Abduction 74 Internal Rotation Behind Back (text) T8 Comments minor strain at end range Left Active Flexion 156 Extension 70 Abduction 180 External Rotation at 90 degrees 95 Abduction External Rotation at 0 degrees Abduction 52 Internal Rotation Behind Back (text) T5 PT-OP-L Special Tests Start: 11/26/22 09:54 Freq: Status: Active Protocol: Document 11/26/22 09:54 [facility] (Rec: 11/26/22 10:36 [facility] [id number]) Special Tests Shoulder Special Tests Garcia Michael Impingement Test Results neg Neer Impingement Test Results neg Empty Can Test Results neg Hip Special Tests Bev's Test Results mild tightness L Slump Test Results neg B Straight Leg Raise Test Results positive limited B Neural Special Tests- Upper Body Median Nerve Tension Test Results positve R tension Ulnar Nerve Tension Test Results neg Radial Nerve Tension Test Results neg PT-OP-M Strength Start: 11/26/22 09:54 Freq: Status: Active Protocol: Document 04/24/23 10:54 [facility] (Rec: 04/24/23 18:25 [facility] [id number]) Shoulder Strength Shoulder Manual Muscle Testing Right Flexion 4+ Good+ Extension 5 Normal Abduction (C5) 4+ Good+ External Rotation 4+ Good+ Internal Rotation 5 Normal Horizontal Abduction 5 Normal Horizontal Adduction 4 Good Left Flexion 5 Normal Extension 5 Normal Abduction (C5) 5 Normal External Rotation 5 Normal Internal Rotation 5 Normal Horizontal Abduction 5 Normal Horizontal Adduction 5 Normal Hip Strength Hip Manual Muscle Testing Right Flexion (L2) 4+ Good+ Extension (S1) 4- Good- Abduction 5 Normal Adduction 5 Normal External Rotation 4- Good- Internal Rotation 5 Normal Left Flexion (L2) 4 Good Extension (S1) 4- Good- Abduction 4+ Good+ Adduction 5 Normal External Rotation 4 Good Internal Rotation 4- Good- Knee Strength Knee Manual Muscle Testing Right Flexion (S2) 5 Normal Extension (L3) 5 Normal Left Flexion (S2) 5 Normal Extension (L3) 5 Normal Ankle/Foot Strength Ankle and Foot Manual Muscle Testing Right Dorsiflexion (L4) 5 Normal Plantarflexion (S1) 5 Normal Inversion 5 Normal Eversion (S1) 5 Normal Left Dorsiflexion (L4) 5 Normal Plantarflexion (S1) 5 Normal Inversion 5 Normal Eversion (S1) 5 Normal Comments 20 heel raises B ; fatigue in calf; sore post thigh PT-OP-Q Treatments Start: 11/26/22 09:54 Freq: Status: Active Protocol: Document 04/24/23 10:54 [facility] (Rec: 04/24/23 18:25 [facility] [id number]) Manual Therapy Treatment Soft Tissue Mobilization UE Body Location R superficial fasica release and circumfrential w/IR behind back &90/90 IR Comments around upper shoulder ( avooiding skin lesions) Joint Mobilizations thoracic Comments Transverse w/IR of RUE prone T2-4 FM GH Comments post glide & lat gap and distraction FM PT-OP-R Modalities Start: 11/26/22 09:54 Freq: Status: Active Protocol: Document 02/20/23 15:24 [facility] ([facility]20[facility]23 15:[id number] Hot Pack/Cold Pack Treatment Cold Pack Location R shoulder & ribcage Treatment Duration (minutes) 10 PT-OP-T Assessment and Plan Start: 11/26/22 09:54 Freq: Status: Active Protocol: Document 04/24/23 10:54 [facility] (Rec: 04/24/23 18:25 [facility] [id number]) Physical Therapy Assessment Goals ear Computer Systems Manager Goal (LTG) Pt will report no more feeling of ear fullness LTG Duration 07/17 balance Computer Systems Manager Goal (LTG) pt will be able to do SLS for 10 sec B 02/03:19 sec R; 12 sec L but lat hip shear and UE flailing- goal met advance to 10 sec SLS w/hands at hips and no lat hip shear 04/24-improved to 10 sec L w/PT help w/set up and mirror and 7 sec w/R w/set up assist LTG Duration 07/17 ROM Computer Systems Manager Goal (LTG) Pt will have R Shoulder AROM equal to L shoulder in order to allow for donning/doffing bra, reaching overhead, etc. 02/03-much improved but still limited -still can't get bra on/off post but can lift ahead 04/24-only R limited behind back ; tension at end range LTG Duration 07/17 strength Short Term Goal (STG) Pt will be indep w/HEP STG Duration achieved advancing as able Alf Goal (LTG) pt will score at least 3/5 on LPM and EFT and at least 4+/5 on BUE and BLE MMT to show improved stability in order to do her job and daily activities w/less pain. 02/03-goal met w/UE strength; LE strength still limited and EFT & LPM 04/24-much improved LTG Duration 07/17 work Alf Goal (LTG) Pt will be able to carry and pull the objects she needs without inc pain. 02/03-has been limiting; still painful 04/24-making modifications -much less pain w/carrying LTG Duration 07/17 Assessment Summary Assessment Pt is making good progress towards goals and has c/o less LE and back pain recently w/ occ flare ups but less frequently. She has almost full RUE ROM (limited sitll w/ IR behind back) and still has tension at end ranges, but has improved immensely w/ROM. She has clogging feeling of ears which likely has to do w/ cervical and jaw alignment and would improve w/PT to work on this. This may also affect the limitations still present in R shoulder. She has improved strength but still overall limited and does still show dec core stabiltiy. Physical Therapy Plan Frequency and Duration Frequency of Treatment 1x/Week Duration of treatment (weeks) 12 Plan of Care Start Date 04/24/23 Plan of Care End Date 07/17/23 Therapeutic Interventions Therapeutic Interventions Balance Training,Gait Training ,Home Exercise Program,Joint Mobilizations,Manual Therapy, Neuromuscular Re-education, Orthotic/Prosthetic Management ,Patient/Caregiver Education, Self-Care/Home Management,Soft Tissue Mobilization,Taping, Therapeutic Activities, Therapeutic Exercises Modalities Cold Pack/Ice Massage,Electric Stimulation,Hot Packs, Infrared Therapy,Iontophoresis ,Ultrasound Other Therapeutic Interventions ionto dexomethosone Next Visit Focus/Plan Next Note Type Treatment Note Next Visit Plan Work on IR ability; overhead mobs w/dowel GH and AC & fascial work w/IR behidn back; start to work on cervical aspect of range & cranial mobility
--- NOTE | 2023-04-24 18:25 | PT.OPPOC ---
Physical, Occupational & Speech Therapy At [facility] Current Diagnoses Other chronic pain (04/24/23) Pain in right shoulder (04/24/23) Pain in left thigh (04/24/23) Fibromyalgia (04/24/23) Difficulty in walking, not elsewhere classified (04/24/23) Abnormal posture (04/24/23) Weakness (04/24/23) Visit Care Team Role Provider Type Jenny Manzo MD Family Provider Physician Specialty: Gynecology [employer] Obstetrics Address: [address] [place] [address], [id number] Email: [email or web address] Quang Webb MD Attending Provider Physician Primary Care Provider Referring Provider Specialty: Family Practice Address: [address] [place] [address], [id number] Email: [email or web address] Plan Of Care PT-OP-T Assessment and Plan Start: 11/26/22 09:54 Freq: Status: Active Protocol: Document 04/24/23 10:54 [facility] (Rec: 04/24/23 18:25 [facility] [id number]) Physical Therapy Assessment Goals ear Emulsion Operator Goal (LTG) Pt will report no more feeling of ear fullness LTG Duration 07/17 balance Emulsion Operator Goal (LTG) pt will be able to do SLS for 10 sec B 02/03:19 sec R; 12 sec L but lat hip shear and UE flailing- goal met advance to 10 sec SLS w/hands at hips and no lat hip shear 04/24-improved to 10 sec L w/PT help w/set up and mirror and 7 sec w/R w/set up assist LTG Duration 07/17 ROM Emulsion Operator Goal (LTG) Pt will have R Shoulder AROM equal to L shoulder in order to allow for donning/doffing bra, reaching overhead, etc. 02/03-much improved but still limited -still can't get bra on/off post but can lift ahead 04/24-only R limited behind back ; tension at end range LTG Duration 07/17 strength Short Term Goal (STG) Pt will be indep w/HEP STG Duration achieved advancing as able Group Home Goal (LTG) pt will score at least 3/5 on LPM and EFT and at least 4+/5 on BUE and BLE MMT to show improved stability in order to do her job and daily activities w/less pain. 02/03-goal met w/UE strength; LE strength still limited and EFT & LPM 04/24-much improved LTG Duration 07/17 work Emulsion Operator Goal (LTG) Pt will be able to carry and pull the objects she needs without inc pain. 02/03-has been limiting; still painful 04/24-making modifications -much less pain w/carrying LTG Duration 07/17 Assessment Summary Assessment Pt is making good progress towards goals and has c/o less LE and back pain recently w/ occ flare ups but less frequently. She has almost full RUE ROM (limited sitll w/ IR behind back) and still has tension at end ranges, but has improved immensely w/ROM. She has clogging feeling of ears which likely has to do w/ cervical and jaw alignment and would improve w/PT to work on this. This may also affect the limitations still present in R shoulder. She has improved strength but still overall limited and does still show dec core stabiltiy. Physical Therapy Plan Frequency and Duration Frequency of Treatment 1x/Week Duration of treatment (weeks) 12 Plan of Care Start Date 04/24/23 Plan of Care End Date 07/17/23 Therapeutic Interventions Therapeutic Interventions Balance Training,Gait Training ,Home Exercise Program,Joint Mobilizations,Manual Therapy, Neuromuscular Re-education, Orthotic/Prosthetic Management ,Patient/Caregiver Education, Self-Care/Home Management,Soft Tissue Mobilization,Taping, Therapeutic Activities, Therapeutic Exercises Modalities Cold Pack/Ice Massage,Electric Stimulation,Hot Packs, Infrared Therapy,Iontophoresis ,Ultrasound Other Therapeutic Interventions ionto dexomethosone Next Visit Focus/Plan Next Note Type Treatment Note Next Visit Plan Work on IR ability; overhead mobs w/dowel GH and AC & fascial work w/IR behidn back; start to work on cervical aspect of range & cranial mobility Plan of Care Dates Plan of Care Start Date 04/24/23 Plan of Care End Date 07/17/23 Electronically Signed by: China Aguirre, PT 04/24/23 1825 If you are in agreement with this Plan of Care, please return a signed and dated copy. I have reviewed this Plan of Care and certify that the skilled therapy services above are required to meet the patient?s needs. Physician Signature Date Printed Name and Credentials Clinical Instructor Signature Printed Name and Credentials
--- NOTE | 2023-05-01 12:08 | PT.OTN ---
Current Diagnoses Other chronic pain (05/01/23) Pain in right shoulder (05/01/23) Pain in left thigh (05/01/23) Fibromyalgia (05/01/23) Difficulty in walking, not elsewhere classified (05/01/23) Abnormal posture (05/01/23) Weakness (05/01/23) Physical Therapy Treatment Note PT-OP-A Visit Information Start: 11/26/22 09:54 Freq: Status: Active Protocol: Document 05/01/23 11:37 [facility] (Rec: 05/01/23 12:08 [facility] [id number]) Out-Patient Physical Therapy Visit Information Visit Information Visit Type Treatment Note Visit Start Time 10:50 Visit Stop Time 11:30 Total Visit Minutes 40 Number of AIR INTELLIGENCE SPECIALIST Visits 0 PT-OP-B Current Condition Start: 11/26/22 09:54 Freq: Status: Active Protocol: Document 11/26/22 09:54 [facility] (Rec: 11/26/22 10:36 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 She has fibromyalgia so she has travelling pain. The things she can't do when things are behind her. She has trouble carrying things up narrow hallways and w/pulling things. It wasn't a one time thing but more of a gradual thing. Her xray didn't show much, but MRI showed 5 things that were moderate. 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 The ortho gave a cortizone shot that gave 3-4 weeks and got a different shot in a different location and when that block wore off, she had extreme pain for 18 hours but it didn't help. She went to OT w/Vivian at [facility]. She has been seeing a naturopathic doctor and has been doing prolo and feels like that is helping her. She used to lose her power when she was reaching overhead but that is better. Her main concern in ROM. She is doing a lot of stretches from the OT. Pt woke up 2 weeks ago w/ really bad L hip pain and it is keeping her up and night and it is radiating down L lat and ant down through lower leg. Pt has head pressure when she bends over that lasts until she sits back up. Has been having sleep issues but did do a sleep study. Treatment Goals Patient/Caregiver Goals Wants to be able to IR behind back so she can put on a bra. PT-OP-C Subjective Start: 11/26/22 09:54 Freq: Status: Active Protocol: Document 05/01/23 11:37 [facility] (Rec: 05/01/23 12:08 [facility] [id number]) OP-PT Subjective Patient Comments Patient Comments Pt reprots being stiff after sleeping on a cot while camping this weekend. She did okay once she got moving. PT-OP-D Balance Start: 11/26/22 09:54 Freq: Status: Active Protocol: Document 11/26/22 09:54 [facility] (Rec: 11/26/22 10:36 [facility] [id number]) Balance Tests Single Limb Standing Single Limb- Right 5 sec Single Limb- Left 7 sec PT-OP-F Manual Assessment Start: 11/26/22 09:54 Freq: Status: Active Protocol: Document 11/26/22 09:54 [facility] (Rec: 11/26/22 10:36 [facility] [id number]) Manual Assessments Joint Mobility Assessment Joint Mobility Assessment equal greater troch and iliac crests B; sidebent to R, R shoulder lower than L, Humerus R is ant in glenoid PT-OP-G Mobility & Gait Start: 11/26/22 09:54 Freq: Status: Active Protocol: Document 11/26/22 09:54 [facility] (Rec: 11/26/22 10:36 [facility] [id number]) OP Gait Assessment Comments Gait Comments dec LUE swing, dec push off on LLE, excessive pelvis rotation PT-OP-J Posture/Palpation/Skin Start: 11/26/22 09:54 Freq: Status: Active Protocol: Document 04/24/23 10:54 [facility] (Rec: 04/24/23 18:25 [facility] [id number]) Posture Evaluation [place]an Postural Classification System Elbow Flexion Test 3 Lumbar Protective Mechanism Left AP 3 Lumbar Protective Mechanism Right AP 2 Lumbar Protective Mechanism Left PA 3 Lumbar Protective Mechanism Right PA 2 PT-OP-K Range of Motion Start: 11/26/22 09:54 Freq: Status: Active Protocol: Document 04/24/23 10:54 [facility] (Rec: 04/24/23 18:25 [facility] [id number]) Shoulder Goniometric Range of Motion Shoulder Right Active Flexion 154 Extension 74 Abduction 170 External Rotation at 90 degrees 105 Abduction External Rotation at 0 degrees Abduction 74 Internal Rotation Behind Back (text) T8 Comments minor strain at end range Left Active Flexion 156 Extension 70 Abduction 180 External Rotation at 90 degrees 95 Abduction External Rotation at 0 degrees Abduction 52 Internal Rotation Behind Back (text) T5 PT-OP-L Special Tests Start: 11/26/22 09:54 Freq: Status: Active Protocol: Document 11/26/22 09:54 [facility] (Rec: 11/26/22 10:36 [facility] [id number]) Special Tests Shoulder Special Tests Garcia Michael Impingement Test Results neg Neer Impingement Test Results neg Empty Can Test Results neg Hip Special Tests Bev's Test Results mild tightness L Slump Test Results neg B Straight Leg Raise Test Results positive limited B Neural Special Tests- Upper Body Median Nerve Tension Test Results positve R tension Ulnar Nerve Tension Test Results neg Radial Nerve Tension Test Results neg PT-OP-M Strength Start: 11/26/22 09:54 Freq: Status: Active Protocol: Document 04/24/23 10:54 [facility] (Rec: 04/24/23 18:25 [facility] [id number]) Shoulder Strength Shoulder Manual Muscle Testing Right Flexion 4+ Good+ Extension 5 Normal Abduction (C5) 4+ Good+ External Rotation 4+ Good+ Internal Rotation 5 Normal Horizontal Abduction 5 Normal Horizontal Adduction 4 Good Left Flexion 5 Normal Extension 5 Normal Abduction (C5) 5 Normal External Rotation 5 Normal Internal Rotation 5 Normal Horizontal Abduction 5 Normal Horizontal Adduction 5 Normal Hip Strength Hip Manual Muscle Testing Right Flexion (L2) 4+ Good+ Extension (S1) 4- Good- Abduction 5 Normal Adduction 5 Normal External Rotation 4- Good- Internal Rotation 5 Normal Left Flexion (L2) 4 Good Extension (S1) 4- Good- Abduction 4+ Good+ Adduction 5 Normal External Rotation 4 Good Internal Rotation 4- Good- Knee Strength Knee Manual Muscle Testing Right Flexion (S2) 5 Normal Extension (L3) 5 Normal Left Flexion (S2) 5 Normal Extension (L3) 5 Normal Ankle/Foot Strength Ankle and Foot Manual Muscle Testing Right Dorsiflexion (L4) 5 Normal Plantarflexion (S1) 5 Normal Inversion 5 Normal Eversion (S1) 5 Normal Left Dorsiflexion (L4) 5 Normal Plantarflexion (S1) 5 Normal Inversion 5 Normal Eversion (S1) 5 Normal Comments 20 heel raises B ; fatigue in calf; sore post thigh PT-OP-Q Treatments Start: 11/26/22 09:54 Freq: Status: Active Protocol: Document 05/01/23 11:37 [facility] (Rec: 05/01/23 12:08 [facility] [id number]) Manual Therapy Treatment Soft Tissue Mobilization cranium Body Location R fascia Mobilization Type Sustained Pressure Intensity/Depth Superficial Comments w/90/90 IR cervical Body Location SO & Ligamentum nuchae Mobilization Type Strumming,Sustained Pressure Body Position Supine Comments R>L w/axial elongation Joint Mobilizations cervical Comments C0-1 distraction; C1-2 distraction C1 & 2 transverse L FM C1 and 2 UPA R FM w/R shoulder abd and neck SB FM PT-OP-R Modalities Start: 11/26/22 09:54 Freq: Status: Active Protocol: Document 02/20/23 15:24 [facility] (Rec: 02/20/23 15:29 [facility] [id number]) Hot Pack/Cold Pack Treatment Cold Pack Location R shoulder & ribcage Treatment Duration (minutes) 10 PT-OP-T Assessment and Plan Start: 11/26/22 09:54 Freq: Status: Active Protocol: Document 05/01/23 11:37 [facility] (Rec: 05/01/23 12:08 [facility] [id number]) Physical Therapy Assessment Goals ear Group Home Goal (LTG) Pt will report no more feeling of ear fullness LTG Duration 07/17 balance Group Home Goal (LTG) pt will be able to do SLS for 10 sec B 02/03:19 sec R; 12 sec L but lat hip shear and UE flailing- goal met advance to 10 sec SLS w/hands at hips and no lat hip shear 04/24-improved to 10 sec L w/PT help w/set up and mirror and 7 sec w/R w/set up assist LTG Duration 07/17 ROM Group Home Goal (LTG) Pt will have R Shoulder AROM equal to L shoulder in order to allow for donning/doffing bra, reaching overhead, etc. 02/03-much improved but still limited -still can't get bra on/off post but can lift ahead 04/24-only R limited behind back ; tension at end range LTG Duration 07/17 strength Short Term Goal (STG) Pt will be indep w/HEP STG Duration achieved advancing as able Attorney At Law Goal (LTG) pt will score at least 3/5 on LPM and EFT and at least 4+/5 on BUE and BLE MMT to show improved stability in order to do her job and daily activities w/less pain. 02/03-goal met w/UE strength; LE strength still limited and EFT & LPM 04/24-much improved LTG Duration 07/17 work Group Home Goal (LTG) Pt will be able to carry and pull the objects she needs without inc pain. 02/03-has been limiting; still painful 04/24-making modifications -much less pain w/carrying LTG Duration 07/17 Assessment Summary Assessment Pt had improved IR of R shoulder w/manual. There was significant tension from cranium that inc w/90/90 IR ROM. She had signifcant upper cervical restriction which imrpoved w/manual Physical Therapy Plan Frequency and Duration Frequency of Treatment 1x/Week Duration of treatment (weeks) 12 Plan of Care Start Date 04/24/23 Plan of Care End Date 07/17/23 Next Visit Focus/Plan Next Note Type Treatment Note Next Visit Plan work on upper cervical and cranium mobility
--- NOTE | 2023-05-06 11:32 | PT.OTN ---
Current Diagnoses Other chronic pain (05/06/23) Pain in right shoulder (05/06/23) Pain in left thigh (05/06/23) Fibromyalgia (05/06/23) Difficulty in walking, not elsewhere classified (05/06/23) Abnormal posture (05/06/23) Weakness (05/06/23) Physical Therapy Treatment Note PT-OP-A Visit Information Start: 11/26/22 09:54 Freq: Status: Active Protocol: Document 05/06/23 11:27 [facility] (Rec: 05/06/23 11:32 [facility] [id number]) Out-Patient Physical Therapy Visit Information Visit Information Visit Type Treatment Note Visit Start Time 09:10 Visit Stop Time 09:50 Total Visit Minutes 40 Visit Number 33 Number of MEDIC TECHNICIAN Visits 0 PT-OP-B Current Condition Start: 11/26/22 09:54 Freq: Status: Active Protocol: Document 11/26/22 09:54 [facility] (Rec: 11/26/22 10:36 [facility] [id number]) Current Condition History of Current Condition Onset Date 1-1.5 ear ago Current Complaints R shoulder pain & L hip and leg pain History of Current Condition Pt reports about 1-1.5 years ago, 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 She has fibromyalgia so she has travelling pain. The things she can't do when things are behind her. She has trouble carrying things up narrow hallways and w/pulling things. It wasn't a one time thing but more of a gradual thing. Her xray didn't show much, but MRI showed 5 things that were moderate. 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 The ortho gave a cortizone shot that gave 3-4 weeks and got a different shot in a different location and when that block wore off, she had extreme pain for 18 hours but it didn't help. She went to OT w/Vivian at [facility]. She has been seeing a naturopathic doctor and has been doing prolo and feels like that is helping her. She used to lose her power when she was reaching overhead but that is better. Her main concern in ROM. She is doing a lot of stretches from the OT. Pt woke up 2 weeks ago w/ really bad L hip pain and it is keeping her up and night and it is radiating down L lat and ant down through lower leg. Pt has head pressure when she bends over that lasts until she sits back up. Has been having sleep issues but did do a sleep study. Treatment Goals Patient/Caregiver Goals Wants to be able to IR behind back so she can put on a bra. PT-OP-C Subjective Start: 11/26/22 09:54 Freq: Status: Active Protocol: Document 05/06/23 11:27 [facility] (Rec: 05/06/23 11:32 [facility] [id number]) OP-PT Subjective Patient Comments Patient Comments Pt reports she felt good after last session but noted yesterday she was really sore in her jaw and neck PT-OP-D Balance Start: 11/26/22 09:54 Freq: Status: Active Protocol: Document 11/26/22 09:54 [facility] (Rec: 11/26/22 10:36 [facility] [id number]) Balance Tests Single Limb Standing Single Limb- Right 5 sec Single Limb- Left 7 sec PT-OP-F Manual Assessment Start: 11/26/22 09:54 Freq: Status: Active Protocol: Document 11/26/22 09:54 [facility] (Rec: 11/26/22 10:36 [facility] [id number]) Manual Assessments Joint Mobility Assessment Joint Mobility Assessment equal greater troch and iliac crests B; sidebent to R, R shoulder lower than L, Humerus R is ant in glenoid PT-OP-G Mobility & Gait Start: 11/26/22 09:54 Freq: Status: Active Protocol: Document 11/26/22 09:54 [facility] (Rec: 11/26/22 10:36 [facility] [id number]) OP Gait Assessment Comments Gait Comments dec LUE swing, dec push off on LLE, excessive pelvis rotation PT-OP-J Posture/Palpation/Skin Start: 11/26/22 09:54 Freq: Status: Active Protocol: Document 04/24/23 10:54 [facility] (Rec: 04/24/23 18:25 [facility] [id number]) Posture Evaluation [place] Postural Classification System Elbow Flexion Test 3 Lumbar Protective Mechanism Left AP 3 Lumbar Protective Mechanism Right AP 2 Lumbar Protective Mechanism Left PA 3 Lumbar Protective Mechanism Right PA 2 PT-OP-K Range of Motion Start: 11/26/22 09:54 Freq: Status: Active Protocol: Document 04/24/23 10:54 [facility] (Rec: 04/24/23 18:25 [facility] [id number]) Shoulder Goniometric Range of Motion Shoulder Right Active Flexion 154 Extension 74 Abduction 170 External Rotation at 90 degrees 105 Abduction External Rotation at 0 degrees Abduction 74 Internal Rotation Behind Back (text) T8 Comments minor strain at end range Left Active Flexion 156 Extension 70 Abduction 180 External Rotation at 90 degrees 95 Abduction External Rotation at 0 degrees Abduction 52 Internal Rotation Behind Back (text) T5 PT-OP-L Special Tests Start: 11/26/22 09:54 Freq: Status: Active Protocol: Document 11/26/22 09:54 [facility] (Rec: 11/26/22 10:36 [facility] [id number]) Special Tests Shoulder Special Tests Garcia Michael Impingement Test Results neg Neer Impingement Test Results neg Empty Can Test Results neg Hip Special Tests Bev's Test Results mild tightness L Slump Test Results neg B Straight Leg Raise Test Results positive limited B Neural Special Tests- Upper Body Median Nerve Tension Test Results positve R tension Ulnar Nerve Tension Test Results neg Radial Nerve Tension Test Results neg PT-OP-M Strength Start: 11/26/22 09:54 Freq: Status: Active Protocol: Document 04/24/23 10:54 [facility] (Rec: 04/24/23 18:25 [facility] [id number]) Shoulder Strength Shoulder Manual Muscle Testing Right Flexion 4+ Good+ Extension 5 Normal Abduction (C5) 4+ Good+ External Rotation 4+ Good+ Internal Rotation 5 Normal Horizontal Abduction 5 Normal Horizontal Adduction 4 Good Left Flexion 5 Normal Extension 5 Normal Abduction (C5) 5 Normal External Rotation 5 Normal Internal Rotation 5 Normal Horizontal Abduction 5 Normal Horizontal Adduction 5 Normal Hip Strength Hip Manual Muscle Testing Right Flexion (L2) 4+ Good+ Extension (S1) 4- Good- Abduction 5 Normal Adduction 5 Normal External Rotation 4- Good- Internal Rotation 5 Normal Left Flexion (L2) 4 Good Extension (S1) 4- Good- Abduction 4+ Good+ Adduction 5 Normal External Rotation 4 Good Internal Rotation 4- Good- Knee Strength Knee Manual Muscle Testing Right Flexion (S2) 5 Normal Extension (L3) 5 Normal Left Flexion (S2) 5 Normal Extension (L3) 5 Normal Ankle/Foot Strength Ankle and Foot Manual Muscle Testing Right Dorsiflexion (L4) 5 Normal Plantarflexion (S1) 5 Normal Inversion 5 Normal Eversion (S1) 5 Normal Left Dorsiflexion (L4) 5 Normal Plantarflexion (S1) 5 Normal Inversion 5 Normal Eversion (S1) 5 Normal Comments 20 heel raises B ; fatigue in calf; sore post thigh PT-OP-Q Treatments Start: 11/26/22 09:54 Freq: Status: Active Protocol: Document 05/06/23 11:27 [facility] (Rec: 05/06/23 11:32 [facility] [id number]) Manual Therapy Treatment Soft Tissue Mobilization jaw Body Location R temporalis & masseter Mobilization Type Strumming Intensity/Depth Moderate Body Position Supine cranium Body Location R>L fascia Mobilization Type Sustained Pressure Intensity/Depth Superficial Comments w/90/90 IR cervical Body Location SO & Ligamentum nuchae Mobilization Type Strumming,Sustained Pressure Body Position Supine Comments R>L w/axial elongation Joint Mobilizations cervical Comments C0-1 distraction; C1-2 distraction C1 transverse L FM C1 and 2 UPA R and C1 L UPA FM w/ SB and R abd w/R shoulder abd and neck SB FM PT-OP-R Modalities Start: 11/26/22 09:54 Freq: Status: Active Protocol: Document 02/20/23 15:24 [facility] (Rec: 02/20/23 15:29 [facility] [id number]) Hot Pack/Cold Pack Treatment Cold Pack Location R shoulder & ribcage Treatment Duration (minutes) 10 PT-OP-T Assessment and Plan Start: 11/26/22 09:54 Freq: Status: Active Protocol: Document 05/06/23 11:27 [facility] (Rec: 05/06/23 11:32 [facility] [id number]) Physical Therapy Assessment Goals ear Nursing Home Goal (LTG) Pt will report no more feeling of ear fullness LTG Duration 07/17 balance Nursing Home Goal (LTG) pt will be able to do SLS for 10 sec B 02/03:19 sec R; 12 sec L but lat hip shear and UE flailing- goal met advance to 10 sec SLS w/hands at hips and no lat hip shear 04/24-improved to 10 sec L w/PT help w/set up and mirror and 7 sec w/R w/set up assist LTG Duration 07/17 ROM Carboy Filler Goal (LTG) Pt will have R Shoulder AROM equal to L shoulder in order to allow for donning/doffing bra, reaching overhead, etc. 02/03-much improved but still limited -still can't get bra on/off post but can lift ahead 04/24-only R limited behind back ; tension at end range LTG Duration 07/17 strength Short Term Goal (STG) Pt will be indep w/HEP STG Duration achieved advancing as able Nursing Home Goal (LTG) pt will score at least 3/5 on LPM and EFT and at least 4+/5 on BUE and BLE MMT to show improved stability in order to do her job and daily activities w/less pain. 02/03-goal met w/UE strength; LE strength still limited and EFT & LPM 04/24-much improved LTG Duration 07/17 work Nursing Home Goal (LTG) Pt will be able to carry and pull the objects she needs without inc pain. 02/03-has been limiting; still painful 04/24-making modifications -much less pain w/carrying LTG Duration 07/17 Assessment Summary Assessment Pt does have tension into cranium w/LTR and active R abd . Pt had improved cervical rotation and SB and jaw soft tissue mobility w/manual. Physical Therapy Plan Frequency and Duration Frequency of Treatment 1x/Week Duration of treatment (weeks) 12 Plan of Care Start Date 04/24/23 Plan of Care End Date 07/17/23 Next Visit Focus/Plan Next Note Type Treatment Note Next Visit Plan cont to work on upper cervical and cranium mobility
--- NOTE | 2023-05-19 13:09 | PT.OTN ---
Current Diagnoses Other chronic pain (05/19/23) Pain in right shoulder (05/19/23) Pain in left thigh (05/19/23) Fibromyalgia (05/19/23) Difficulty in walking, not elsewhere classified (05/19/23) Abnormal posture (05/19/23) Weakness (05/19/23) Physical Therapy Treatment Note PT-OP-A Visit Information Start: 11/26/22 09:54 Freq: Status: Active Protocol: Document 05/19/23 12:57 [facility] (Rec: 05/19/23 13:09 [facility] [id number]) Out-Patient Physical Therapy Visit Information Visit Information Visit Type Treatment Note Visit Start Time 11:34 Visit Stop Time 12:15 Total Visit Minutes 41 Visit Number 34 Number of MULTIFOCAL LENS ASSEMBLER Visits 0 PT-OP-B Current Condition Start: 11/26/22 09:54 Freq: Status: Active Protocol: Document 11/26/22 09:54 [facility] (Rec: 11/26/22 10:36 [facility] [id number]) Current Condition History of Current Condition Onset Date 1-1.5 ear ago Current Complaints R shoulder pain & L hip and leg pain History of Current Condition Pt reports about 1-1.5 years ago, 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 She has fibromyalgia so she has travelling pain. The things she can't do when things are behind her. She has trouble carrying things up narrow hallways and w/pulling things. It wasn't a one time thing but more of a gradual thing. Her xray didn't show much, but MRI showed 5 things that were moderate. 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 The ortho gave a cortizone shot that gave 3-4 weeks and got a different shot in a different location and when that block wore off, she had extreme pain for 18 hours but it didn't help. She went to OT w/Vivian at [facility]. She has been seeing a naturopathic doctor and has been doing prolo and feels like that is helping her. She used to lose her power when she was reaching overhead but that is better. Her main concern in ROM. She is doing a lot of stretches from the OT. Pt woke up 2 weeks ago w/ really bad L hip pain and it is keeping her up and night and it is radiating down L lat and ant down through lower leg. Pt has head pressure when she bends over that lasts until she sits back up. Has been having sleep issues but did do a sleep study. Treatment Goals Patient/Caregiver Goals Wants to be able to IR behind back so she can put on a bra. PT-OP-C Subjective Start: 11/26/22 09:54 Freq: Status: Active Protocol: Document 05/19/23 12:57 [facility] (Rec: 05/19/23 13:09 [facility] [id number]) OP-PT Subjective Patient Comments Patient Comments Pt notes she feels like her ears may have improved some as she was able to clear ears sometimes w/elevation change on drive. L knee had a couple occasions of very sharp pain. PT-OP-D Balance Start: 11/26/22 09:54 Freq: Status: Active Protocol: Document 11/26/22 09:54 [facility] (Rec: 11/26/22 10:36 [id number] Balance Tests Single Limb Standing Single Limb- Right 5 sec Single Limb- Left 7 sec PT-OP-F Manual Assessment Start: 11/26/22 09:54 Freq: Status: Active Protocol: Document 11/26/22 09:54 [facility] (Rec: 11/26/22 10:36 [facility] [id number]) Manual Assessments Joint Mobility Assessment Joint Mobility Assessment equal greater troch and iliac crests B; sidebent to R, R shoulder lower than L, Humerus R is ant in glenoid PT-OP-G Mobility & Gait Start: 11/26/22 09:54 Freq: Status: Active Protocol: Document 11/26/22 09:54 [facility] (Rec: 11/26/22 10:36 [facility] [id number]) OP Gait Assessment Comments Gait Comments dec LUE swing, dec push off on LLE, excessive pelvis rotation PT-OP-J Posture/Palpation/Skin Start: 11/26/22 09:54 Freq: Status: Active Protocol: Document 04/24/23 10:54 [facility] (Rec: 04/24/23 18:25 [facility] [id number]) Posture Evaluation [place] Postural Classification System Elbow Flexion Test 3 Lumbar Protective Mechanism Left AP 3 Lumbar Protective Mechanism Right AP 2 Lumbar Protective Mechanism Left PA 3 Lumbar Protective Mechanism Right PA 2 PT-OP-K Range of Motion Start: 11/26/22 09:54 Freq: Status: Active Protocol: Document 04/24/23 10:54 [facility] (Rec: 04/24/23 18:25 [facility] [id number]) Shoulder Goniometric Range of Motion Shoulder Right Active Flexion 154 Extension 74 Abduction 170 External Rotation at 90 degrees 105 Abduction External Rotation at 0 degrees Abduction 74 Internal Rotation Behind Back (text) T8 Comments minor strain at end range Left Active Flexion 156 Extension 70 Abduction 180 External Rotation at 90 degrees 95 Abduction External Rotation at 0 degrees Abduction 52 Internal Rotation Behind Back (text) T5 PT-OP-L Special Tests Start: 11/26/22 09:54 Freq: Status: Active Protocol: Document 11/26/22 09:54 [facility] (Rec: 11/26/22 10:36 [facility] [id number]) Special Tests Shoulder Special Tests Garcia Michael Impingement Test Results neg Neer Impingement Test Results neg Empty Can Test Results neg Hip Special Tests Bev's Test Results mild tightness L Slump Test Results neg B Straight Leg Raise Test Results positive limited B Neural Special Tests- Upper Body Median Nerve Tension Test Results positve R tension Ulnar Nerve Tension Test Results neg Radial Nerve Tension Test Results neg PT-OP-M Strength Start: 11/26/22 09:54 Freq: Status: Active Protocol: Document 04/24/23 10:54 [facility] (Rec: 04/24/23 18:25 [facility] [id number]) Shoulder Strength Shoulder Manual Muscle Testing Right Flexion 4+ Good+ Extension 5 Normal Abduction (C5) 4+ Good+ External Rotation 4+ Good+ Internal Rotation 5 Normal Horizontal Abduction 5 Normal Horizontal Adduction 4 Good Left Flexion 5 Normal Extension 5 Normal Abduction (C5) 5 Normal External Rotation 5 Normal Internal Rotation 5 Normal Horizontal Abduction 5 Normal Horizontal Adduction 5 Normal Hip Strength Hip Manual Muscle Testing Right Flexion (L2) 4+ Good+ Extension (S1) 4- Good- Abduction 5 Normal Adduction 5 Normal External Rotation 4- Good- Internal Rotation 5 Normal Left Flexion (L2) 4 Good Extension (S1) 4- Good- Abduction 4+ Good+ Adduction 5 Normal External Rotation 4 Good Internal Rotation 4- Good- Knee Strength Knee Manual Muscle Testing Right Flexion (S2) 5 Normal Extension (L3) 5 Normal Left Flexion (S2) 5 Normal Extension (L3) 5 Normal Ankle/Foot Strength Ankle and Foot Manual Muscle Testing Right Dorsiflexion (L4) 5 Normal Plantarflexion (S1) 5 Normal Inversion 5 Normal Eversion (S1) 5 Normal Left Dorsiflexion (L4) 5 Normal Plantarflexion (S1) 5 Normal Inversion 5 Normal Eversion (S1) 5 Normal Comments 20 heel raises B ; fatigue in calf; sore post thigh PT-OP-Q Treatments Start: 11/26/22 09:54 Freq: Status: Active Protocol: Document 05/19/23 12:57 [facility] (Rec: 05/19/23 13:09 [facility] [id number]) Therapeutic Exercises Sitting Exercises rotation Sitting Exercise Name cervical rot w/wt shift Side bilateral Reps/Minutes 3 ea Manual Therapy Treatment Soft Tissue Mobilization jaw Body Location temporalis and post and inf jaw Mobilization Type Sustained Pressure Intensity/Depth Moderate Body Position Supine cranium Body Location R>L fascia Mobilization Type Sustained Pressure Intensity/Depth Superficial cervical Body Location SO & Ligamentum nuchae Mobilization Type Strumming,Sustained Pressure Body Position Supine Comments R>L w/axial elongation Joint Mobilizations cervical Comments C1 transverse L FM; C1 UPA R FM PT-OP-R Modalities Start: 11/26/22 09:54 Freq: Status: Active Protocol: Document 02/20/23 15:24 [facility] (Rec: 02/20/23 15:29 [facility] [id number]) Hot Pack/Cold Pack Treatment Cold Pack Location R shoulder & ribcage Treatment Duration (minutes) 10 PT-OP-T Assessment and Plan Start: 11/26/22 09:54 Freq: Status: Active Protocol: Document 05/19/23 12:57 [facility] (Rec: 05/19/23 13:09 [facility] [id number]) Physical Therapy Assessment Goals ear Flanging Operator Goal (LTG) Pt will report no more feeling of ear fullness LTG Duration 07/17 balance Flanging Operator Goal (LTG) pt will be able to do SLS for 10 sec B 02/03:19 sec R; 12 sec L but lat hip shear and UE flailing- goal met advance to 10 sec SLS w/hands at hips and no lat hip shear 04/24-improved to 10 sec L w/PT help w/set up and mirror and 7 sec w/R w/set up assist LTG Duration 07/17 ROM Flanging Operator Goal (LTG) Pt will have R Shoulder AROM equal to L shoulder in order to allow for donning/doffing bra, reaching overhead, etc. 02/03-much improved but still limited -still can't get bra on/off post but can lift ahead 04/24-only R limited behind back ; tension at end range LTG Duration 07/17 strength Short Term Goal (STG) Pt will be indep w/HEP STG Duration achieved advancing as able Intermediate Goal (LTG) pt will score at least 3/5 on LPM and EFT and at least 4+/5 on BUE and BLE MMT to show improved stability in order to do her job and daily activities w/less pain. 02/03-goal met w/UE strength; LE strength still limited and EFT & LPM 04/24-much improved LTG Duration 07/17 work Flanging Operator Goal (LTG) Pt will be able to carry and pull the objects she needs without inc pain. 02/03-has been limiting; still painful 04/24-making modifications -much less pain w/carrying LTG Duration 07/17 Assessment Summary Assessment Pt went from 50% B to about 80 % L and 85% R cervical rotation after manual. She did feel pull into R ear like it wants to pop w/manual. Physical Therapy Plan Frequency and Duration Frequency of Treatment 1x/Week Duration of treatment (weeks) 12 Plan of Care Start Date 04/24/23 Plan of Care End Date 07/17/23 Next Visit Focus/Plan Next Note Type Treatment Note Next Visit Plan cont to work on upper cervical and cranium mobility
--- NOTE | 2023-06-02 17:52 | PT.OTN ---
Current Diagnoses Other chronic pain (06/02/23) Pain in right shoulder (06/02/23) Pain in left thigh (06/02/23) Fibromyalgia (06/02/23) Difficulty in walking, not elsewhere classified (06/02/23) Abnormal posture (06/02/23) Weakness (06/02/23) Physical Therapy Treatment Note PT-OP-A Visit Information Start: 11/26/22 09:54 Freq: Status: Active Protocol: Document 06/02/23 16:51 [facility] (Rec: 06/02/23 17:52 [facility] [id number]) Out-Patient Physical Therapy Visit Information Visit Information Visit Type Treatment Note Visit Start Time 16:50 Visit Stop Time 17:30 Total Visit Minutes 40 Visit Number 35 Number of REED OR WIND INSTRUMENT REPAIRER Visits 0 PT-OP-B Current Condition Start: 11/26/22 09:54 Freq: Status: Active Protocol: Document 11/26/22 09:54 [facility] (Rec: 11/26/22 10:36 [facility] [id number]) Current Condition History of Current Condition Onset Date 1-1.5 ear ago Current Complaints R shoulder pain & L hip and leg pain History of Current Condition Pt reports about 1-1.5 years ago, 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 She has fibromyalgia so she has travelling pain. The things she can't do when things are behind her. She has trouble carrying things up narrow hallways and w/pulling things. It wasn't a one time thing but more of a gradual thing. Her xray didn't show much, but MRI showed 5 things that were moderate. 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 The ortho gave a cortizone shot that gave 3-4 weeks and got a different shot in a different location and when that block wore off, she had extreme pain for 18 hours but it didn't help. She went to OT w/Vivian at [facility]. She has been seeing a naturopathic doctor and has been doing prolo and feels like that is helping her. She used to lose her power when she was reaching overhead but that is better. Her main concern in ROM. She is doing a lot of stretches from the OT. Pt woke up 2 weeks ago w/ really bad L hip pain and it is keeping her up and night and it is radiating down L lat and ant down through lower leg. Pt has head pressure when she bends over that lasts until she sits back up. Has been having sleep issues but did do a sleep study. Treatment Goals Patient/Caregiver Goals Wants to be able to IR behind back so she can put on a bra. PT-OP-C Subjective Start: 11/26/22 09:54 Freq: Status: Active Protocol: Document 06/02/23 16:51 [facility] (Rec: 06/02/23 17:52 [facility] [id number]) OP-PT Subjective Patient Comments Patient Comments Pt reports last wed the chiro was working on L side of neck and then pain inc on R side of the neck after. The R side of the nekc has been really sore this past week. She cannot find a comfortable position. She layed on ball on suboccipatl this weekend and feels bruised on R side of suboccipcals. Has tried mult topicals and self massage w/no relief. She feels like seh is in a flare PT-OP-D Balance Start: 11/26/22 09:54 Freq: Status: Active Protocol: Document 11/26/22 09:54 [facility] (Rec: 11/26/22 10:36 [facility] [id number]) Balance Tests Single Limb Standing Single Limb- Right 5 sec Single Limb- Left 7 sec PT-OP-F Manual Assessment Start: 11/26/22 09:54 Freq: Status: Active Protocol: Document 11/26/22 09:54 [facility] (Rec: 11/26/22 10:36 [facility] [id number]) Manual Assessments Joint Mobility Assessment Joint Mobility Assessment equal greater troch and iliac crests B; sidebent to R, R shoulder lower than L, Humerus R is ant in glenoid PT-OP-G Mobility & Gait Start: 11/26/22 09:54 Freq: Status: Active Protocol: Document 11/26/22 09:54 [facility] (Rec: 11/26/22 10:36 [facility] [id number]) OP Gait Assessment Comments Gait Comments dec LUE swing, dec push off on LLE, excessive pelvis rotation PT-OP-J Posture/Palpation/Skin Start: 11/26/22 09:54 Freq: Status: Active Protocol: Document 04/24/23 10:54 [facility] (Rec: 04/24/23 18:25 [facility] [id number]) Posture Evaluation [facility] Postural Classification System Elbow Flexion Test 3 Lumbar Protective Mechanism Left AP 3 Lumbar Protective Mechanism Right AP 2 Lumbar Protective Mechanism Left PA 3 Lumbar Protective Mechanism Right PA 2 PT-OP-K Range of Motion Start: 11/26/22 09:54 Freq: Status: Active Protocol: Document 04/24/23 10:54 [facility] (Rec: 04/24/23 18:25 [facility] [id number]) Shoulder Goniometric Range of Motion Shoulder Right Active Flexion 154 Extension 74 Abduction 170 External Rotation at 90 degrees 105 Abduction External Rotation at 0 degrees Abduction 74 Internal Rotation Behind Back (text) T8 Comments minor strain at end range Left Active Flexion 156 Extension 70 Abduction 180 External Rotation at 90 degrees 95 Abduction External Rotation at 0 degrees Abduction 52 Internal Rotation Behind Back (text) T5 PT-OP-L Special Tests Start: 11/26/22 09:54 Freq: Status: Active Protocol: Document 11/26/22 09:54 [facility] (Rec: 11/26/22 10:36 [facility] [id number]) Special Tests Shoulder Special Tests Garcia Michael Impingement Test Results neg Neer Impingement Test Results neg Empty Can Test Results neg Hip Special Tests Bev's Test Results mild tightness L Slump Test Results neg B Straight Leg Raise Test Results positive limited B Neural Special Tests- Upper Body Median Nerve Tension Test Results positve R tension Ulnar Nerve Tension Test Results neg Radial Nerve Tension Test Results neg PT-OP-M Strength Start: 11/26/22 09:54 Freq: Status: Active Protocol: Document 04/24/23 10:54 [facility] (Rec: 04/24/23 18:25 [facility] [id number]) Shoulder Strength Shoulder Manual Muscle Testing Right Flexion 4+ Good+ Extension 5 Normal Abduction (C5) 4+ Good+ External Rotation 4+ Good+ Internal Rotation 5 Normal Horizontal Abduction 5 Normal Horizontal Adduction 4 Good Left Flexion 5 Normal Extension 5 Normal Abduction (C5) 5 Normal External Rotation 5 Normal Internal Rotation 5 Normal Horizontal Abduction 5 Normal Horizontal Adduction 5 Normal Hip Strength Hip Manual Muscle Testing Right Flexion (L2) 4+ Good+ Extension (S1) 4- Good- Abduction 5 Normal Adduction 5 Normal External Rotation 4- Good- Internal Rotation 5 Normal Left Flexion (L2) 4 Good Extension (S1) 4- Good- Abduction 4+ Good+ Adduction 5 Normal External Rotation 4 Good Internal Rotation 4- Good- Knee Strength Knee Manual Muscle Testing Right Flexion (S2) 5 Normal Extension (L3) 5 Normal Left Flexion (S2) 5 Normal Extension (L3) 5 Normal Ankle/Foot Strength Ankle and Foot Manual Muscle Testing Right Dorsiflexion (L4) 5 Normal Plantarflexion (S1) 5 Normal Inversion 5 Normal Eversion (S1) 5 Normal Left Dorsiflexion (L4) 5 Normal Plantarflexion (S1) 5 Normal Inversion 5 Normal Eversion (S1) 5 Normal Comments 20 heel raises B ; fatigue in calf; sore post thigh PT-OP-Q Treatments Start: 11/26/22 09:54 Freq: Status: Active Protocol: Document 06/02/23 16:51 [facility] (Rec: 06/02/23 17:52 [facility] [id number]) Therapeutic Exercises Sidelying Exercises open book Side bilateral Reps/Minutes 10 Sitting Exercises 1st rib mob Sitting Exercise Name towel Side right Reps/Minutes 10x w/Sb Manual Therapy Treatment Soft Tissue Mobilization Superior Body Location R UT w/cervical rot & ligamentum nuchae w/chin tucks Joint Mobilizations cervical Comments C1 transverse R FM; C1 UPA L FM thoracic Comments T1, 2-4 PA Fm & T1-3 transverse L FM sternum Comments AP manubrium w/pt self assisted cervical flex ribs Comments AP 2nd rib FM; caudal ribs 1-3 FM PT-OP-R Modalities Start: 11/26/22 09:54 Freq: Status: Active Protocol: Document 02/20/23 15:24 [facility] (Rec: 02/20/23 15:29 [facility] [id number]) Hot Pack/Cold Pack Treatment Cold Pack Location R shoulder & ribcage Treatment Duration (minutes) 10 PT-OP-T Assessment and Plan Start: 11/26/22 09:54 Freq: Status: Active Protocol: Document 06/02/23 16:51 [facility] (Rec: 06/02/23 17:52 [facility] [id number]) Physical Therapy Assessment Goals ear Assistant Vice President Goal (LTG) Pt will report no more feeling of ear fullness LTG Duration 07/17 balance Assistant Vice President Goal (LTG) pt will be able to do SLS for 10 sec B 02/03:19 sec R; 12 sec L but lat hip shear and UE flailing- goal met advance to 10 sec SLS w/hands at hips and no lat hip shear 04/24-improved to 10 sec L w/PT help w/set up and mirror and 7 sec w/R w/set up assist LTG Duration 07/17 ROM Assistant Vice President Goal (LTG) Pt will have R Shoulder AROM equal to L shoulder in order to allow for donning/doffing bra, reaching overhead, etc. 02/03-much improved but still limited -still can't get bra on/off post but can lift ahead 04/24-only R limited behind back ; tension at end range LTG Duration 07/17 strength Short Term Goal (STG) Pt will be indep w/HEP STG Duration achieved advancing as able Assistant Vice President Goal (LTG) pt will score at least 3/5 on LPM and EFT and at least 4+/5 on BUE and BLE MMT to show improved stability in order to do her job and daily activities w/less pain. 02/03-goal met w/UE strength; LE strength still limited and EFT & LPM 04/24-much improved LTG Duration 07/17 work Assistant Vice President Goal (LTG) Pt will be able to carry and pull the objects she needs without inc pain. 02/03-has been limiting; still painful 04/24-making modifications -much less pain w/carrying LTG Duration 07/17 Assessment Summary Assessment Pt started about abotu 80% cervical rot B and improved to 95% and had much improved cervical SB. Physical Therapy Plan Frequency and Duration Frequency of Treatment 1x/Week Duration of treatment (weeks) 12 Plan of Care Start Date 04/24/23 Plan of Care End Date 07/17/23 Next Visit Focus/Plan Next Note Type Treatment Note Next Visit Plan cont to work on upper cervical and cranium mobility
--- NOTE | 2023-06-09 15:25 | PT.OTN ---
Current Diagnoses Other chronic pain (06/09/23) Pain in right shoulder (06/09/23) Pain in left thigh (06/09/23) Fibromyalgia (06/09/23) Difficulty in walking, not elsewhere classified (06/09/23) Abnormal posture (06/09/23) Weakness (06/09/23) Physical Therapy Treatment Note PT-OP-A Visit Information Start: 11/26/22 09:54 Freq: Status: Active Protocol: Document 06/09/23 13:34 [facility] (Rec: 06/09/23 15:25 [facility] [id number]) Out-Patient Physical Therapy Visit Information Visit Information Visit Type Treatment Note Visit Start Time 13:34 Visit Stop Time 14:15 Total Visit Minutes 41 Visit Number 36 Number of GRAIN OILSEED OR PASTURE GROWER Visits 0 PT-OP-B Current Condition Start: 11/26/22 09:54 Freq: Status: Active Protocol: Document 11/26/22 09:54 [facility] (Rec: 11/26/22 10:36 [facility] [id number]) Current Condition History of Current Condition Onset Date 1-1.5 ear ago Current Complaints R shoulder pain & L hip and leg pain History of Current Condition Pt reports about 1-1.5 years ago, 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 She has fibromyalgia so she has travelling pain. The things she can't do when things are behind her. She has trouble carrying things up narrow hallways and w/pulling things. It wasn't a one time thing but more of a gradual thing. Her xray didn't show much, but MRI showed 5 things that were moderate. 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 The ortho gave a cortizone shot that gave 3-4 weeks and got a different shot in a different location and when that block wore off, she had extreme pain for 18 hours but it didn't help. She went to OT w/Vivian at [facility]. She has been seeing a naturopathic doctor and has been doing prolo and feels like that is helping her. She used to lose her power when she was reaching overhead but that is better. Her main concern in ROM. She is doing a lot of stretches from the OT. Pt woke up 2 weeks ago w/ really bad L hip pain and it is keeping her up and night and it is radiating down L lat and ant down through lower leg. Pt has head pressure when she bends over that lasts until she sits back up. Has been having sleep issues but did do a sleep study. Treatment Goals Patient/Caregiver Goals Wants to be able to IR behind back so she can put on a bra. PT-OP-C Subjective Start: 11/26/22 09:54 Freq: Status: Active Protocol: Document 06/09/23 13:34 [facility] (Rec: 06/09/23 15:25 [facility] [id number]) OP-PT Subjective Patient Comments Patient Comments Pt reports her neck is still a problem but is getting better . She feels like last week really helped. On Friday, she started noticing her L groin feeling uncomfortable. It feels like right where the hip connects to the body. Notes worked a lot in her car d/t dgt's camp PT-OP-D Balance Start: 11/26/22 09:54 Freq: Status: Active Protocol: Document 11/26/22 09:54 [facility] (Rec: 11/26/22 10:36 [facility] [id number]) Balance Tests Single Limb Standing Single Limb- Right 5 sec Single Limb- Left 7 sec PT-OP-F Manual Assessment Start: 11/26/22 09:54 Freq: Status: Active Protocol: Document 11/26/22 09:54 [facility] (Rec: 11/26/22 10:36 [facility] [id number]) Manual Assessments Joint Mobility Assessment Joint Mobility Assessment equal greater troch and iliac crests B; sidebent to R, R shoulder lower than L, Humerus R is ant in glenoid PT-OP-G Mobility & Gait Start: 11/26/22 09:54 Freq: Status: Active Protocol: Document 11/26/22 09:54 [facility] (Rec: 11/26/22 10:36 [facility] [id number]) OP Gait Assessment Comments Gait Comments dec LUE swing, dec push off on LLE, excessive pelvis rotation PT-OP-J Posture/Palpation/Skin Start: 11/26/22 09:54 Freq: Status: Active Protocol: Document 04/24/23 10:54 [facility] (Rec: 04/24/23 18:25 [facility] [id number]) Posture Evaluation [facility] Postural Classification System Elbow Flexion Test 3 Lumbar Protective Mechanism Left AP 3 Lumbar Protective Mechanism Right AP 2 Lumbar Protective Mechanism Left PA 3 Lumbar Protective Mechanism Right PA 2 PT-OP-K Range of Motion Start: 11/26/22 09:54 Freq: Status: Active Protocol: Document 04/24/23 10:54 [facility] (Rec: 04/24/23 18:25 [facility] [id number]) Shoulder Goniometric Range of Motion Shoulder Right Active Flexion 154 Extension 74 Abduction 170 External Rotation at 90 degrees 105 Abduction External Rotation at 0 degrees Abduction 74 Internal Rotation Behind Back (text) T8 Comments minor strain at end range Left Active Flexion 156 Extension 70 Abduction 180 External Rotation at 90 degrees 95 Abduction External Rotation at 0 degrees Abduction 52 Internal Rotation Behind Back (text) T5 PT-OP-L Special Tests Start: 11/26/22 09:54 Freq: Status: Active Protocol: Document 11/26/22 09:54 [facility] (Rec: 11/26/22 10:36 [facility] [id number]) Special Tests Shoulder Special Tests Garcia Michael Impingement Test Results neg Neer Impingement Test Results neg Empty Can Test Results neg Hip Special Tests Bev's Test Results mild tightness L Slump Test Results neg B Straight Leg Raise Test Results positive limited B Neural Special Tests- Upper Body Median Nerve Tension Test Results positve R tension Ulnar Nerve Tension Test Results neg Radial Nerve Tension Test Results neg PT-OP-M Strength Start: 11/26/22 09:54 Freq: Status: Active Protocol: Document 04/24/23 10:54 [facility] (Rec: 04/24/23 18:25 [facility] [id number]) Shoulder Strength Shoulder Manual Muscle Testing Right Flexion 4+ Good+ Extension 5 Normal Abduction (C5) 4+ Good+ External Rotation 4+ Good+ Internal Rotation 5 Normal Horizontal Abduction 5 Normal Horizontal Adduction 4 Good Left Flexion 5 Normal Extension 5 Normal Abduction (C5) 5 Normal External Rotation 5 Normal Internal Rotation 5 Normal Horizontal Abduction 5 Normal Horizontal Adduction 5 Normal Hip Strength Hip Manual Muscle Testing Right Flexion (L2) 4+ Good+ Extension (S1) 4- Good- Abduction 5 Normal Adduction 5 Normal External Rotation 4- Good- Internal Rotation 5 Normal Left Flexion (L2) 4 Good Extension (S1) 4- Good- Abduction 4+ Good+ Adduction 5 Normal External Rotation 4 Good Internal Rotation 4- Good- Knee Strength Knee Manual Muscle Testing Right Flexion (S2) 5 Normal Extension (L3) 5 Normal Left Flexion (S2) 5 Normal Extension (L3) 5 Normal Ankle/Foot Strength Ankle and Foot Manual Muscle Testing Right Dorsiflexion (L4) 5 Normal Plantarflexion (S1) 5 Normal Inversion 5 Normal Eversion (S1) 5 Normal Left Dorsiflexion (L4) 5 Normal Plantarflexion (S1) 5 Normal Inversion 5 Normal Eversion (S1) 5 Normal Comments 20 heel raises B ; fatigue in calf; sore post thigh PT-OP-Q Treatments Start: 11/26/22 09:54 Freq: Status: Active Protocol: Document 06/09/23 13:34 [facility] (Rec: 06/09/23 15:25 [facility] [id number]) Therapeutic Exercises Sitting Exercises 1st rib mob Sitting Exercise Name towel Side right Reps/Minutes 10x w/Sb Other Exercises fencer Other Exercise Name self hip abd mob and add stretch Side left Reps/Minutes 12 Manual Therapy Treatment Soft Tissue Mobilization cervical Body Location R cervical paraspinals Mobilization Type Rolling,Sustained Pressure hip Body Location L HS & iliacus Mobilization Type Rolling,Sustained Pressure Comments w/ hip flex Joint Mobilizations cranium Comments 1. sphenobasilar decompression FM B 2. occipital bone post FM B cervical Comments gapping SP C5-6 and C6-7 FM w/ cervical flex innominate Comments L pubic bone inf FM hip Comments L free the ball hip ER FM , R hip on axis IR supine, inf glide FM, abd FM PT-OP-R Modalities Start: 11/26/22 09:54 Freq: Status: Active Protocol: Document 02/20/23 15:24 [facility] (Rec: 02/20/23 15:29 [facility] [id number]) Hot Pack/Cold Pack Treatment Cold Pack Location R shoulder & ribcage Treatment Duration (minutes) 10 PT-OP-T Assessment and Plan Start: 11/26/22 09:54 Freq: Status: Active Protocol: Document 06/09/23 13:34 [facility] (Rec: 06/09/23 15:25 [facility] [id number]) Physical Therapy Assessment Goals ear Consultant Education Goal (LTG) Pt will report no more feeling of ear fullness LTG Duration 07/17 balance Longterm Goal (LTG) pt will be able to do SLS for 10 sec B 02/03:19 sec R; 12 sec L but lat hip shear and UE flailing- goal met advance to 10 sec SLS w/hands at hips and no lat hip shear 04/24-improved to 10 sec L w/PT help w/set up and mirror and 7 sec w/R w/set up assist LTG Duration 07/17 ROM Consultant Education Goal (LTG) Pt will have R Shoulder AROM equal to L shoulder in order to allow for donning/doffing bra, reaching overhead, etc. 02/03-much improved but still limited -still can't get bra on/off post but can lift ahead 04/24-only R limited behind back ; tension at end range LTG Duration 07/17 strength Short Term Goal (STG) Pt will be indep w/HEP STG Duration achieved advancing as able Consultant Education Goal (LTG) pt will score at least 3/5 on LPM and EFT and at least 4+/5 on BUE and BLE MMT to show improved stability in order to do her job and daily activities w/less pain. 02/03-goal met w/UE strength; LE strength still limited and EFT & LPM 04/24-much improved LTG Duration 07/17 work Longterm Goal (LTG) Pt will be able to carry and pull the objects she needs without inc pain. 02/03-has been limiting; still painful 04/24-making modifications -much less pain w/carrying LTG Duration 07/17 Assessment Summary Assessment Pt did well with exercises and pt encourage dto do these to help her maintain gains between sessions. pt banda dimproved hip ROM into all directions w/manual and may have been limited d/t pt sitting mroe last week in car to work. She maintained cervical rot to about 85% B today but still did have a lot of limit. w/cranial mobs, ptnoted feeling relief in ears during mobs. Physical Therapy Plan Frequency and Duration Frequency of Treatment 1x/Week Duration of treatment (weeks) 12 Plan of Care Start Date 04/24/23 Plan of Care End Date 07/17/23 Next Visit Focus/Plan Next Note Type Treatment Note Next Visit Plan cont to work on upper cervical and cranium mobility & stability
--- NOTE | 2023-06-18 12:49 | PT.OTN ---
Current Diagnoses Other chronic pain (06/18/23) Pain in right shoulder (06/18/23) Pain in left thigh (06/18/23) Fibromyalgia (06/18/23) Difficulty in walking, not elsewhere classified (06/18/23) Abnormal posture (06/18/23) Weakness (06/18/23) Physical Therapy Treatment Note PT-OP-A Visit Information Start: 11/26/22 09:54 Freq: Status: Active Protocol: Document 06/18/23 10:04 [facility] (Rec: 06/18/23 12:49 [facility] [id number]) Out-Patient Physical Therapy Visit Information Visit Information Visit Type Treatment Note Visit Start Time 09:06 Visit Stop Time 09:47 Total Visit Minutes 41 Visit Number 37 Number of PHOTOENGRAVING PRINTER Visits 0 PT-OP-B Current Condition Start: 11/26/22 09:54 Freq: Status: Active Protocol: Document 11/26/22 09:54 [facility] (Rec: 11/26/22 10:36 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 She has fibromyalgia so she has travelling pain. The things she can't do when things are behind her. She has trouble carrying things up narrow hallways and w/pulling things. It wasn't a one time thing but more of a gradual thing. Her xray didn't show much, but MRI showed 5 things that were moderate. 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 The ortho gave a cortizone shot that gave 3-4 weeks and got a different shot in a different location and when that block wore off, she had extreme pain for 18 hours but it didn't help. She went to OT w/Vivian at [facility]. She has been seeing a naturopathic doctor and has been doing prolo and feels like that is helping her. She used to lose her power when she was reaching overhead but that is better. Her main concern in ROM. She is doing a lot of stretches from the OT. Pt woke up 2 weeks ago w/ really bad L hip pain and it is keeping her up and night and it is radiating down L lat and ant down through lower leg. Pt has head pressure when she bends over that lasts until she sits back up. Has been having sleep issues but did do a sleep study. Treatment Goals Patient/Caregiver Goals Wants to be able to IR behind back so she can put on a bra. PT-OP-C Subjective Start: 11/26/22 09:54 Freq: Status: Active Protocol: Document 06/18/23 10:04 [facility] (Rec: 06/18/23 12:49 [facility] [id number]) OP-PT Subjective Patient Comments Patient Comments Pt reports she felt like she could clear her ears almost when travelling east, which is better than it normally is. PT-OP-D Balance Start: 11/26/22 09:54 Freq: Status: Active Protocol: Document 11/26/22 09:54 [facility] (Rec: 11/26/22 10:36 [facility] [id number]) Balance Tests Single Limb Standing Single Limb- Right 5 sec Single Limb- Left 7 sec PT-OP-F Manual Assessment Start: 11/26/22 09:54 Freq: Status: Active Protocol: Document 11/26/22 09:54 [facility] (Rec: 11/26/22 10:36 [facility] [id number]) Manual Assessments Joint Mobility Assessment Joint Mobility Assessment equal greater troch and iliac crests B; sidebent to R, R shoulder lower than L, Humerus R is ant in glenoid PT-OP-G Mobility & Gait Start: 11/26/22 09:54 Freq: Status: Active Protocol: Document 11/26/22 09:54 [facility] (Rec: 11/26/22 10:36 [facility] [id number]) OP Gait Assessment Comments Gait Comments dec LUE swing, dec push off on LLE, excessive pelvis rotation PT-OP-J Posture/Palpation/Skin Start: 11/26/22 09:54 Freq: Status: Active Protocol: Document 04/24/23 10:54 [facility] (Rec: 04/24/23 18:25 [facility] [id number]) Posture Evaluation Roldan Postural Classification System Elbow Flexion Test 3 Lumbar Protective Mechanism Left AP 3 Lumbar Protective Mechanism Right AP 2 Lumbar Protective Mechanism Left PA 3 Lumbar Protective Mechanism Right PA 2 PT-OP-K Range of Motion Start: 11/26/22 09:54 Freq: Status: Active Protocol: Document 04/24/23 10:54 [facility] (Rec: 04/24/23 18:25 [facility] [id number]) Shoulder Goniometric Range of Motion Shoulder Right Active Flexion 154 Extension 74 Abduction 170 External Rotation at 90 degrees 105 Abduction External Rotation at 0 degrees Abduction 74 Internal Rotation Behind Back (text) T8 Comments minor strain at end range Left Active Flexion 156 Extension 70 Abduction 180 External Rotation at 90 degrees 95 Abduction External Rotation at 0 degrees Abduction 52 Internal Rotation Behind Back (text) T5 PT-OP-L Special Tests Start: 11/26/22 09:54 Freq: Status: Active Protocol: Document 11/26/22 09:54 [facility] (Rec: 11/26/22 10:36 [facility] [id number]) Special Tests Shoulder Special Tests Garcia Michael Impingement Test Results neg Neer Impingement Test Results neg Empty Can Test Results neg Hip Special Tests Bev's Test Results mild tightness L Slump Test Results neg B Straight Leg Raise Test Results positive limited B Neural Special Tests- Upper Body Median Nerve Tension Test Results positve R tension Ulnar Nerve Tension Test Results neg Radial Nerve Tension Test Results neg PT-OP-M Strength Start: 11/26/22 09:54 Freq: Status: Active Protocol: Document 04/24/23 10:54 [facility] (Rec: 04/24/23 18:25 [facility] [id number]) Shoulder Strength Shoulder Manual Muscle Testing Right Flexion 4+ Good+ Extension 5 Normal Abduction (C5) 4+ Good+ External Rotation 4+ Good+ Internal Rotation 5 Normal Horizontal Abduction 5 Normal Horizontal Adduction 4 Good Left Flexion 5 Normal Extension 5 Normal Abduction (C5) 5 Normal External Rotation 5 Normal Internal Rotation 5 Normal Horizontal Abduction 5 Normal Horizontal Adduction 5 Normal Hip Strength Hip Manual Muscle Testing Right Flexion (L2) 4+ Good+ Extension (S1) 4- Good- Abduction 5 Normal Adduction 5 Normal External Rotation 4- Good- Internal Rotation 5 Normal Left Flexion (L2) 4 Good Extension (S1) 4- Good- Abduction 4+ Good+ Adduction 5 Normal External Rotation 4 Good Internal Rotation 4- Good- Knee Strength Knee Manual Muscle Testing Right Flexion (S2) 5 Normal Extension (L3) 5 Normal Left Flexion (S2) 5 Normal Extension (L3) 5 Normal Ankle/Foot Strength Ankle and Foot Manual Muscle Testing Right Dorsiflexion (L4) 5 Normal Plantarflexion (S1) 5 Normal Inversion 5 Normal Eversion (S1) 5 Normal Left Dorsiflexion (L4) 5 Normal Plantarflexion (S1) 5 Normal Inversion 5 Normal Eversion (S1) 5 Normal Comments 20 heel raises B ; fatigue in calf; sore post thigh PT-OP-Q Treatments Start: 11/26/22 09:54 Freq: Status: Active Protocol: Document 06/18/23 10:04 [facility] (Rec: 06/18/23 12:49 [facility] [id number]) Therapeutic Exercises Sidelying Exercises open book Side bilateral Reps/Minutes 10 Manual Therapy Treatment Soft Tissue Mobilization cervical Body Location R>SO Mobilization Type Sustained Pressure Joint Mobilizations cranium Comments 1. sphenobasilar decompression FM B 2. occipital bone post FM B 3. occipital inf B FM 4. frontal ant B FM 5. temporal inf and AP R FM 6. saggital R FM 7. parietal R post & ant L FM PT-OP-R Modalities Start: 11/26/22 09:54 Freq: Status: Active Protocol: Document 02/20/23 15:24 [facility] (Rec: 02/20/23 15:29 [facility] [id number]) Hot Pack/Cold Pack Treatment Cold Pack Location R shoulder & ribcage Treatment Duration (minutes) 10 PT-OP-T Assessment and Plan Start: 11/26/22 09:54 Freq: Status: Active Protocol: Document 06/18/23 10:04 [facility] (Rec: 06/18/23 12:49 [facility] [id number]) Physical Therapy Assessment Goals ear Ice Plant Operator Goal (LTG) Pt will report no more feeling of ear fullness LTG Duration 07/17 balance Mcc Goal (LTG) pt will be able to do SLS for 10 sec B 02/03:19 sec R; 12 sec L but lat hip shear and UE flailing- goal met advance to 10 sec SLS w/hands at hips and no lat hip shear 04/24-improved to 10 sec L w/PT help w/set up and mirror and 7 sec w/R w/set up assist LTG Duration 07/17 ROM Ice Plant Operator Goal (LTG) Pt will have R Shoulder AROM equal to L shoulder in order to allow for donning/doffing bra, reaching overhead, etc. 4/17-much improved but still limited -still can't get bra on/off post but can lift ahead 04/24-only R limited behind back ; tension at end range LTG Duration 07/17 strength Short Term Goal (STG) Pt will be indep w/HEP STG Duration achieved advancing as able Ice Plant Operator Goal (LTG) pt will score at least 3/5 on LPM and EFT and at least 4+/5 on BUE and BLE MMT to show improved stability in order to do her job and daily activities w/less pain. 02/03-goal met w/UE strength; LE strength still limited and EFT & LPM 04/24-much improved LTG Duration 07/17 work Mcc Goal (LTG) Pt will be able to carry and pull the objects she needs without inc pain. 02/03-has been limiting; still painful 04/24-making modifications -much less pain w/carrying LTG Duration 07/17 Assessment Summary Assessment Pt had improved abd from 80 to 100 on R and about 85 to 120 on L after manual treatment. She consistently feels the tension w/cranial work is connected to her eras and notes some pull in them w/ treatment Physical Therapy Plan Frequency and Duration Frequency of Treatment 1x/Week Duration of treatment (weeks) 12 Plan of Care Start Date 04/24/23 Plan of Care End Date 07/17/23 Next Visit Focus/Plan Next Note Type Treatment Note Next Visit Plan cont to work on upper cervical and cranium mobility & stability
--- NOTE | 2023-06-25 10:50 | PT.OTN ---
Current Diagnoses Other chronic pain (06/25/23) Pain in right shoulder (06/25/23) Pain in left thigh (06/25/23) Fibromyalgia (06/25/23) Difficulty in walking, not elsewhere classified (06/25/23) Abnormal posture (06/25/23) Weakness (06/25/23) Physical Therapy Treatment Note PT-OP-A Visit Information Start: 11/26/22 09:54 Freq: Status: Active Protocol: Document 06/25/23 10:04 [facility] (Rec: 06/25/23 10:50 [facility] [id number]) Out-Patient Physical Therapy Visit Information Visit Information Visit Type Treatment Note Visit Start Time 10:02 Visit Stop Time 10:44 Total Visit Minutes 42 Visit Number 38 Number of ACUTE CARE CERTIFIED NURSING ASSISTANT Visits 0 PT-OP-B Current Condition Start: 11/26/22 09:54 Freq: Status: Active Protocol: Document 11/26/22 09:54 [facility] (Rec: 11/26/22 10:36 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 She has fibromyalgia so she has travelling pain. The things she can't do when things are behind her. She has trouble carrying things up narrow hallways and w/pulling things. It wasn't a one time thing but more of a gradual thing. Her xray didn't show much, but MRI showed 5 things that were moderate. 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 The ortho gave a cortizone shot that gave 3-4 weeks and got a different shot in a different location and when that block wore off, she had extreme pain for 18 hours but it didn't help. She went to OT w/Vivian at [facility]. She has been seeing a naturopathic doctor and has been doing prolo and feels like that is helping her. She used to lose her power when she was reaching overhead but that is better. Her main concern in ROM. She is doing a lot of stretches from the OT. Pt woke up 2 weeks ago w/ really bad L hip pain and it is keeping her up and night and it is radiating down L lat and ant down through lower leg. Pt has head pressure when she bends over that lasts until she sits back up. Has been having sleep issues but did do a sleep study. Treatment Goals Patient/Caregiver Goals Wants to be able to IR behind back so she can put on a bra. PT-OP-C Subjective Start: 11/26/22 09:54 Freq: Status: Active Protocol: Document 06/25/23 10:04 [facility] (Rec: 06/25/23 10:50 [facility] [id number]) OP-PT Subjective Patient Comments Patient Comments Pt reports she saw Dr. Aguirre ENT who told her CT was normal and she is going to trial an allergy pill and spray. He thinks the ear ringing is more structural though PT-OP-D Balance Start: 11/26/22 09:54 Freq: Status: Active Protocol: Document 11/26/22 09:54 [facility] (Rec: 11/26/22 10:36 [facility] [id number]) Balance Tests Single Limb Standing Single Limb- Right 5 sec Single Limb- Left 7 sec PT-OP-F Manual Assessment Start: 11/26/22 09:54 Freq: Status: Active Protocol: Document 11/26/22 09:54 [facility] (Rec: 11/26/22 10:36 [facility] [id number]) Manual Assessments Joint Mobility Assessment Joint Mobility Assessment equal greater troch and iliac crests B; sidebent to R, R shoulder lower than L, Humerus R is ant in glenoid PT-OP-G Mobility & Gait Start: 11/26/22 09:54 Freq: Status: Active Protocol: Document 11/26/22 09:54 [facility] (Rec: 11/26/22 10:36 [facility] [id number]) OP Gait Assessment Comments Gait Comments dec LUE swing, dec push off on LLE, excessive pelvis rotation PT-OP-J Posture/Palpation/Skin Start: 11/26/22 09:54 Freq: Status: Active Protocol: Document 04/24/23 10:54 [facility] (Rec: 04/24/23 18:25 [facility] [id number]) Posture Evaluation Roldan Postural Classification System Elbow Flexion Test 3 Lumbar Protective Mechanism Left AP 3 Lumbar Protective Mechanism Right AP 2 Lumbar Protective Mechanism Left PA 3 Lumbar Protective Mechanism Right PA 2 PT-OP-K Range of Motion Start: 11/26/22 09:54 Freq: Status: Active Protocol: Document 04/24/23 10:54 [facility] (Rec: 04/24/23 18:25 [facility] [id number]) Shoulder Goniometric Range of Motion Shoulder Right Active Flexion 154 Extension 74 Abduction 170 External Rotation at 90 degrees 105 Abduction External Rotation at 0 degrees Abduction 74 Internal Rotation Behind Back (text) T8 Comments minor strain at end range Left Active Flexion 156 Extension 70 Abduction 180 External Rotation at 90 degrees 95 Abduction External Rotation at 0 degrees Abduction 52 Internal Rotation Behind Back (text) T5 PT-OP-L Special Tests Start: 11/26/22 09:54 Freq: Status: Active Protocol: Document 11/26/22 09:54 [facility] (Rec: 11/26/22 10:36 [facility] [id number]) Special Tests Shoulder Special Tests Garcia Michael Impingement Test Results neg Neer Impingement Test Results neg Empty Can Test Results neg Hip Special Tests Bev's Test Results mild tightness L Slump Test Results neg B Straight Leg Raise Test Results positive limited B Neural Special Tests- Upper Body Median Nerve Tension Test Results positve R tension Ulnar Nerve Tension Test Results neg Radial Nerve Tension Test Results neg PT-OP-M Strength Start: 11/26/22 09:54 Freq: Status: Active Protocol: Document 04/24/23 10:54 [facility] (Rec: 04/24/23 18:25 [facility] [id number]) Shoulder Strength Shoulder Manual Muscle Testing Right Flexion 4+ Good+ Extension 5 Normal Abduction (C5) 4+ Good+ External Rotation 4+ Good+ Internal Rotation 5 Normal Horizontal Abduction 5 Normal Horizontal Adduction 4 Good Left Flexion 5 Normal Extension 5 Normal Abduction (C5) 5 Normal External Rotation 5 Normal Internal Rotation 5 Normal Horizontal Abduction 5 Normal Horizontal Adduction 5 Normal Hip Strength Hip Manual Muscle Testing Right Flexion (L2) 4+ Good+ Extension (S1) 4- Good- Abduction 5 Normal Adduction 5 Normal External Rotation 4- Good- Internal Rotation 5 Normal Left Flexion (L2) 4 Good Extension (S1) 4- Good- Abduction 4+ Good+ Adduction 5 Normal External Rotation 4 Good Internal Rotation 4- Good- Knee Strength Knee Manual Muscle Testing Right Flexion (S2) 5 Normal Extension (L3) 5 Normal Left Flexion (S2) 5 Normal Extension (L3) 5 Normal Ankle/Foot Strength Ankle and Foot Manual Muscle Testing Right Dorsiflexion (L4) 5 Normal Plantarflexion (S1) 5 Normal Inversion 5 Normal Eversion (S1) 5 Normal Left Dorsiflexion (L4) 5 Normal Plantarflexion (S1) 5 Normal Inversion 5 Normal Eversion (S1) 5 Normal Comments 20 heel raises B ; fatigue in calf; sore post thigh PT-OP-Q Treatments Start: 11/26/22 09:54 Freq: Status: Active Protocol: Document 06/25/23 10:04 [facility] (Rec: 06/25/23 10:50 [facility] [id number]) Manual Therapy Treatment Soft Tissue Mobilization jaw Body Location R masseter and post and inf jaw Mobilization Type Sustained Pressure Intensity/Depth Moderate Body Position Supine Joint Mobilizations TMJ Joint B distraction & R PA & B AP FM Body Position Supine cranium Joint w/AROM abd (either UE), SLR, LTR, basking seal, eye L/R Comments 1. sphenobasilar decompression FM B 2. occipital bone post FM B 3. occipital inf B FM 4. frontal ant B FM 5. temporal inf and AP R FM 6. saggital R FM 7. parietal R post & ant L FM 8. zygomatic R inf FM 9. nasal distraction and R swing FM 10. R to L sphenoid mob FM PT-OP-R Modalities Start: 11/26/22 09:54 Freq: Status: Active Protocol: Document 02/20/23 15:24 [facility] (Rec: 02/20/23 15:29 [facility] [id number]) Hot Pack/Cold Pack Treatment Cold Pack Location R shoulder & ribcage Treatment Duration (minutes) 10 PT-OP-T Assessment and Plan Start: 11/26/22 09:54 Freq: Status: Active Protocol: Document 06/25/23 10:04 [facility] (Rec: 06/25/23 10:50 [facility] [id number]) Physical Therapy Assessment Goals ear Senior Care Goal (LTG) Pt will report no more feeling of ear fullness LTG Duration 07/17 balance Senior Care Goal (LTG) pt will be able to do SLS for 10 sec B 02/03:19 sec R; 12 sec L but lat hip shear and UE flailing- goal met advance to 10 sec SLS w/hands at hips and no lat hip shear 04/24-improved to 10 sec L w/PT help w/set up and mirror and 7 sec w/R w/set up assist LTG Duration 07/17 ROM Inserting Machine Operator Goal (LTG) Pt will have R Shoulder AROM equal to L shoulder in order to allow for donning/doffing bra, reaching overhead, etc. 02/03-much improved but still limited -still can't get bra on/off post but can lift ahead 04/24-only R limited behind back ; tension at end range LTG Duration 07/17 strength Short Term Goal (STG) Pt will be indep w/HEP STG Duration achieved advancing as able Senior Care Goal (LTG) pt will score at least 3/5 on LPM and EFT and at least 4+/5 on BUE and BLE MMT to show improved stability in order to do her job and daily activities w/less pain. 02/03-goal met w/UE strength; LE strength still limited and EFT & LPM 04/24-much improved LTG Duration 07/17 work Inserting Machine Operator Goal (LTG) Pt will be able to carry and pull the objects she needs without inc pain. 02/03-has been limiting; still painful 04/24-making modifications -much less pain w/carrying LTG Duration 07/17 Assessment Summary Assessment Pt had improved abd from 95 on R to about 120 deg and about 85 L to about 110. She cotn to have a lot of tension in jaw and head which likely contribute to entire upper body pain. She had improved jaw ROM opening after manual and less clicking and dec deviation Physical Therapy Plan Frequency and Duration Frequency of Treatment 1x/Week Duration of treatment (weeks) 12 Plan of Care Start Date 04/24/23 Plan of Care End Date 07/17/23 Next Visit Focus/Plan Next Note Type Treatment Note Next Visit Plan cont to work on upper cervical and cranium mobility & stability
--- NOTE | 2023-07-01 12:50 | PT.OTN ---
Current Diagnoses Other chronic pain (07/01/23) Pain in right shoulder (07/01/23) Pain in left thigh (07/01/23) Fibromyalgia (07/01/23) Difficulty in walking, not elsewhere classified (07/01/23) Abnormal posture (07/01/23) Weakness (07/01/23) Physical Therapy Treatment Note PT-OP-A Visit Information Start: 11/26/22 09:54 Freq: Status: Active Protocol: Document 07/01/23 10:37 [facility] (Rec: 07/01/23 12:50 [facility] [id number]) Out-Patient Physical Therapy Visit Information Visit Information Visit Type Progress Note Visit Start Time 11:36 Visit Stop Time 12:16 Total Visit Minutes 40 Visit Number 39 Number of ASSOCIATE MEDIA PLANNER Visits 0 PT-OP-B Current Condition Start: 11/26/22 09:54 Freq: Status: Active Protocol: Document 11/26/22 09:54 [facility] (Rec: 11/26/22 10:36 [facility] [id number]) Current Condition History of Current Condition Onset Date 1-1.5 ear ago Current Complaints R shoulder pain & L hip and leg pain History of Current Condition Pt reports about 1-1.5 years ago, 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 She has fibromyalgia so she has travelling pain. The things she can't do when things are behind her. She has trouble carrying things up narrow hallways and w/pulling things. It wasn't a one time thing but more of a gradual thing. Her xray didn't show much, but MRI showed 5 things that were moderate. 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 The ortho gave a cortizone shot that gave 3-4 weeks and got a different shot in a different location and when that block wore off, she had extreme pain for 18 hours but it didn't help. She went to OT w/Vivian at [facility]. She has been seeing a naturopathic doctor and has been doing prolo and feels like that is helping her. She used to lose her power when she was reaching overhead but that is better. Her main concern in ROM. She is doing a lot of stretches from the OT. Pt woke up 2 weeks ago w/ really bad L hip pain and it is keeping her up and night and it is radiating down L lat and ant down through lower leg. Pt has head pressure when she bends over that lasts until she sits back up. Has been having sleep issues but did do a sleep study. Treatment Goals Patient/Caregiver Goals Wants to be able to IR behind back so she can put on a bra. PT-OP-C Subjective Start: 11/26/22 09:54 Freq: Status: Active Protocol: Document 07/01/23 10:37 [facility] (Rec: 07/01/23 12:50 [facility] [id number]) OP-PT Subjective Patient Comments Patient Comments Pt reports jaw was more sore on R after mobilizations last time. She still feels like it is off. She feels like her ears keep trying to open more which is closer to normal for her. Pt reports a couple nights ago slept really funny on neck and thats been sore Patient Reported Progress Improving PT-OP-D Balance Start: 11/26/22 09:54 Freq: Status: Active Protocol: Document 11/26/22 09:54 [facility] (Rec: 11/26/22 10:36 [facility] [id number]) Balance Tests Single Limb Standing Single Limb- Right 5 sec Single Limb- Left 7 sec PT-OP-F Manual Assessment Start: 11/26/22 09:54 Freq: Status: Active Protocol: Document 11/26/22 09:54 [facility] (Rec: 11/26/22 10:36 [facility] [id number]) Manual Assessments Joint Mobility Assessment Joint Mobility Assessment equal greater troch and iliac crests B; sidebent to R, R shoulder lower than L, Humerus R is ant in glenoid PT-OP-G Mobility & Gait Start: 11/26/22 09:54 Freq: Status: Active Protocol: Document 11/26/22 09:54 [facility] (Rec: 11/26/22 10:36 [facility] [id number]) OP Gait Assessment Comments Gait Comments dec LUE swing, dec push off on LLE, excessive pelvis rotation PT-OP-J Posture/Palpation/Skin Start: 11/26/22 09:54 Freq: Status: Active Protocol: Document 04/24/23 10:54 [facility] (Rec: 04/24/23 18:25 [facility] [id number]) Posture Evaluation [facility] Postural Classification System Elbow Flexion Test 3 Lumbar Protective Mechanism Left AP 3 Lumbar Protective Mechanism Right AP 2 Lumbar Protective Mechanism Left PA 3 Lumbar Protective Mechanism Right PA 2 PT-OP-K Range of Motion Start: 11/26/22 09:54 Freq: Status: Active Protocol: Document 07/01/23 10:37 [facility] (Rec: 07/01/23 12:50 [facility] [id number]) Cervical Spine Range of Motion Cervical Spine Active Degrees Flexion 70 Extension 44 Rotation Left 51 Rotation Right 56 Lateral Flexion Left 33 Lateral Flexion Right 34 Comments pain w/r rot, L rot tight, ext pain post and L lat;tight B SB on R TMJ Range of Motion Comments Comments deviates L Shoulder Goniometric Range of Motion Shoulder Right Active Flexion 160 Extension 56 Abduction 180 External Rotation at 90 degrees 105 Abduction External Rotation at 0 degrees Abduction 74 Internal Rotation Behind Back (text) T9 Comments minor strain at end range w/90 /90 ER & strain w/IR (feels through R neck and into shoulder and elbow) Left Active Flexion 156 Extension 70 Abduction 180 External Rotation at 90 degrees 95 Abduction External Rotation at 0 degrees Abduction 52 Internal Rotation Behind Back (text) T5 PT-OP-L Special Tests Start: 11/26/22 09:54 Freq: Status: Active Protocol: Document 11/26/22 09:54 [facility] (Rec: 11/26/22 10:36 [facility] [id number]) Special Tests Shoulder Special Tests Garcia Michael Impingement Test Results neg Neer Impingement Test Results neg Empty Can Test Results neg Hip Special Tests Bev's Test Results mild tightness L Slump Test Results neg B Straight Leg Raise Test Results positive limited B Neural Special Tests- Upper Body Median Nerve Tension Test Results positve R tension Ulnar Nerve Tension Test Results neg Radial Nerve Tension Test Results neg PT-OP-M Strength Start: 11/26/22 09:54 Freq: Status: Active Protocol: Document 07/01/23 10:37 [facility] (Rec: 07/01/23 12:50 [facility] [id number]) Shoulder Strength Shoulder Manual Muscle Testing Right Flexion 5 Normal Extension 5 Normal Abduction (C5) 5 Normal External Rotation 5 Normal Internal Rotation 5 Normal Horizontal Abduction 5 Normal Horizontal Adduction 5 Normal Left Flexion 5 Normal Extension 5 Normal Abduction (C5) 5 Normal External Rotation 5 Normal Internal Rotation 5 Normal Horizontal Abduction 5 Normal Horizontal Adduction 5 Normal PT-OP-Q Treatments Start: 11/26/22 09:54 Freq: Status: Active Protocol: Document 07/01/23 10:37 [facility] (Rec: 07/01/23 12:50 [facility] [id number]) Therapeutic Exercises Supine Exercises core Supine Exercise Name B hip flex iso Side bilateral Reps/Minutes 20 sec x2 Sidelying Exercises open book Side bilateral Reps/Minutes 10 Standing Exercises SL Side bilateral Reps/Minutes SLS trials B x2 Manual Therapy Treatment Soft Tissue Mobilization cervical Body Location B SCM & SO Mobilization Type Sustained Pressure Body Position Supine Joint Mobilizations cervical Comments C1 transverse L and C2 transverse L , C3 transverse L , C4 transverse R FM; improved by about 10 deg B SB PT-OP-R Modalities Start: 11/26/22 09:54 Freq: Status: Active Protocol: Document 02/20/23 15:24 [facility] (Rec: 02/20/23 15:29 [facility] [id number]) Hot Pack/Cold Pack Treatment Cold Pack Location R shoulder & ribcage Treatment Duration (minutes) 10 PT-OP-T Assessment and Plan Start: 11/26/22 09:54 Freq: Status: Active Protocol: Document 07/01/23 10:37 [facility] (Rec: 07/01/23 12:50 [facility] [id number]) Physical Therapy Assessment Goals cervical Sanitation Truck Driver Goal (LTG) Pt will have full cervical ROM w/o inc pain. LTG Duration 09/23 ear Sanitation Truck Driver Goal (LTG) Pt will report no more feeling of ear fullness 07/01-feel like it will almost clear and get partially clear for short bits-improved LTG Duration 09/23/23 balance [facility] Goal (LTG) pt will be able to do SLS for 10 sec B 02/03:19 sec R; 12 sec L but lat hip shear and UE flailing- goal met advance to 10 sec SLS w/hands at hips and no lat hip shear 04/24-improved to 10 sec L w/PT help w/set up and mirror and 7 sec w/R w/set up assist 07/01-improved to 17 sec L, 20 R w/slight hip drop but can do >10 sec w/cues LTG Duration achieved 07/01 ROM Sanitation Truck Driver Goal (LTG) Pt will have R Shoulder AROM equal to L shoulder in order to allow for donning/doffing bra, reaching overhead, etc. 02/03-much improved but still limited -still can't get bra on/off post but can lift ahead 04/24-only R limited behind back ; tension at end range 07/01-some challenges w/ dressing w/tight clothes, mostly w/weird positions or IR behind back LTG Duration 09/23 strength Short Term Goal (STG) Pt will be indep w/HEP STG Duration achieved advancing as able [facility] Goal (LTG) pt will score at least 3/5 on LPM and EFT and at least 4+/5 on BUE and BLE MMT to show improved stability in order to do her job and daily activities w/less pain. 02/03-goal met w/UE strength; LE strength still limited and EFT & LPM 04/24-much improved LTG Duration achieved 07/01 work Sanitation Truck Driver Goal (LTG) Pt will be able to carry and pull the objects she needs without inc pain. 02/03-has been limiting; still painful 04/24-making modifications -much less pain w/carrying LTG Duration achieved 07/01 Assessment Summary Assessment Pt is making good progress w/ PT with noting improvement in times where ears feel like they can clear. She has started to use her RUE more w/ less care but does still have more difficulty w/neck pain and R neck to elbwo discomfort w/reaching behind the backand w/some weird motions w/ dressing. Cont PT to help w/ current restrictions. Physical Therapy Plan Frequency and Duration Frequency of Treatment 1x/Week Duration of treatment (weeks) 12 Plan of Care Start Date 07/01/23 Plan of Care End Date 09/23/23 Therapeutic Interventions Therapeutic Interventions Balance Training,Gait Training ,Home Exercise Program,Joint Mobilizations,Manual Therapy, Neuromuscular Re-education, Orthotic/Prosthetic Management ,Patient/Caregiver Education, Self-Care/Home Management,Soft Tissue Mobilization,Taping, Therapeutic Activities, Therapeutic Exercises Modalities Cold Pack/Ice Massage,Electric Stimulation,Hot Packs, Infrared Therapy,Iontophoresis ,Ultrasound Other Therapeutic Interventions ionto dexomethosone Next Visit Focus/Plan Next Note Type Treatment Note Next Visit Plan cont to work on upper cervical and cranium mobility & stability
--- NOTE | 2023-07-01 12:51 | PT.OPPOC ---
Physical, Occupational & Speech Therapy At [facility] Current Diagnoses Other chronic pain (07/01/23) Pain in right shoulder (07/01/23) Pain in left thigh (07/01/23) Fibromyalgia (07/01/23) Difficulty in walking, not elsewhere classified (07/01/23) Abnormal posture (07/01/23) Weakness (07/01/23) Visit Care Team Role Provider Type Jenny Manzo MD Family Provider Physician Specialty: Gynecology B[employer]KE [employer]JUST[employer] Obstetrics Address: [address] [place] [address], [id number] Email: [email or web address] Quang Webb MD Attending Provider Physician Primary Care Provider Referring Provider Specialty: Family Practice Address: [address] [place] [address], [id number] Email: [email or web address] Plan Of Care PT-OP-T Assessment and Plan Start: 11/26/22 09:54 Freq: Status: Active Protocol: Document 07/01/23 10:37 [facility] (Rec: 07/01/23 12:50 [facility] [id number]) Physical Therapy Assessment Goals cervical Potato Chip Sacking Machine Operator Goal (LTG) Pt will have full cervical ROM w/o inc pain. LTG Duration 09/23 ear Potato Chip Sacking Machine Operator Goal (LTG) Pt will report no more feeling of ear fullness 07/01-feel like it will almost clear and get partially clear for short bits-improved LTG Duration 09/23/23 balance Nursing Home Goal (LTG) pt will be able to do SLS for 10 sec B 02/03:19 sec R; 12 sec L but lat hip shear and UE flailing- goal met advance to 10 sec SLS w/hands at hips and no lat hip shear 04/24-improved to 10 sec L w/PT help w/set up and mirror and 7 sec w/R w/set up assist 07/01-improved to 17 sec L, 20 R w/slight hip drop but can do >10 sec w/cues LTG Duration achieved 07/01 ROM Nursing Home Goal (LTG) Pt will have R Shoulder AROM equal to L shoulder in order to allow for donning/doffing bra, reaching overhead, etc. 02/03-much improved but still limited -still can't get bra on/off post but can lift ahead 04/24-only R limited behind back ; tension at end range 07/01-some challenges w/ dressing w/tight clothes, mostly w/weird positions or IR behind back LTG Duration 09/23 strength Short Term Goal (STG) Pt will be indep w/HEP STG Duration achieved advancing as able Potato Chip Sacking Machine Operator Goal (LTG) pt will score at least 3/5 on LPM and EFT and at least 4+/5 on BUE and BLE MMT to show improved stability in order to do her job and daily activities w/less pain. 02/03-goal met w/UE strength; LE strength still limited and EFT & LPM 04/24-much improved LTG Duration achieved 07/01 work Potato Chip Sacking Machine Operator Goal (LTG) Pt will be able to carry and pull the objects she needs without inc pain. 02/03-has been limiting; still painful 04/24-making modifications -much less pain w/carrying LTG Duration achieved 07/01 Assessment Summary Assessment Pt is making good progress w/ PT with noting improvement in times where ears feel like they can clear. She has started to use her RUE more w/ less care but does still have more difficulty w/neck pain and R neck to elbwo discomfort w/reaching behind the backand w/some weird motions w/ dressing. Cont PT to help w/ current restrictions. Physical Therapy Plan Frequency and Duration Frequency of Treatment 1x/Week Duration of treatment (weeks) 12 Plan of Care Start Date 07/01/23 Plan of Care End Date 09/23/23 Therapeutic Interventions Therapeutic Interventions Balance Training,Gait Training ,Home Exercise Program,Joint Mobilizations,Manual Therapy, Neuromuscular Re-education, Orthotic/Prosthetic Management ,Patient/Caregiver Education, Self-Care/Home Management,Soft Tissue Mobilization,Taping, Therapeutic Activities, Therapeutic Exercises Modalities Cold Pack/Ice Massage,Electric Stimulation,Hot Packs, Infrared Therapy,Iontophoresis ,Ultrasound Other Therapeutic Interventions ionto dexomethosone Next Visit Focus/Plan Next Note Type Treatment Note Next Visit Plan cont to work on upper cervical and cranium mobility & stability Plan of Care Dates Plan of Care Start Date 07/01/23 Plan of Care End Date 09/23/23 Electronically Signed by: China Aguirre, PT 07/01/23 [id number] If you are in agreement with this Plan of Care, please return a signed and dated copy. I have reviewed this Plan of Care and certify that the skilled therapy services above are required to meet the patient?s needs. Physician Signature Date Printed Name and Credentials Clinical Instructor Signature Printed Name and Credentials
--- NOTE | 2023-07-07 10:05 | PT.OTN ---
Current Diagnoses Other chronic pain (07/07/23) Pain in right shoulder (07/07/23) Pain in left thigh (07/07/23) Fibromyalgia (07/07/23) Difficulty in walking, not elsewhere classified (07/07/23) Abnormal posture (07/07/23) Weakness (07/07/23) Physical Therapy Treatment Note PT-OP-A Visit Information Start: 11/26/22 09:54 Freq: Status: Active Protocol: Document 07/07/23 09:04 [facility] (Rec: 07/07/23 10:05 [facility] [id number]) Out-Patient Physical Therapy Visit Information Visit Information Visit Type Treatment Note Visit Start Time 09:07 Visit Stop Time 09:50 Total Visit Minutes 43 Visit Number 40 Number of SUPERVISOR INSPECTION AND TESTING Visits 0 PT-OP-B Current Condition Start: 11/26/22 09:54 Freq: Status: Active Protocol: Document 11/26/22 09:54 [facility] (Rec: 11/26/22 10:36 [facility] [id number]) Current Condition History of Current Condition Onset Date 1-1.5 ear ago Current Complaints R shoulder pain & L hip and leg pain History of Current Condition Pt reports about 1-1.5 years ago, 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 She has fibromyalgia so she has travelling pain. The things she can't do when things are behind her. She has trouble carrying things up narrow hallways and w/pulling things. It wasn't a one time thing but more of a gradual thing. Her xray didn't show much, but MRI showed 5 things that were moderate. 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 The ortho gave a cortizone shot that gave 3-4 weeks and got a different shot in a different location and when that block wore off, she had extreme pain for 18 hours but it didn't help. She went to OT w/Vivian at [facility]. She has been seeing a naturopathic doctor and has been doing prolo and feels like that is helping her. She used to lose her power when she was reaching overhead but that is better. Her main concern in ROM. She is doing a lot of stretches from the OT. Pt woke up 2 weeks ago w/ really bad L hip pain and it is keeping her up and night and it is radiating down L lat and ant down through lower leg. Pt has head pressure when she bends over that lasts until she sits back up. Has been having sleep issues but did do a sleep study. Treatment Goals Patient/Caregiver Goals Wants to be able to IR behind back so she can put on a bra. PT-OP-C Subjective Start: 11/26/22 09:54 Freq: Status: Active Protocol: Document 07/07/23 09:04 [facility] (Rec: 07/07/23 10:05 [facility] [id number]) OP-PT Subjective Patient Comments Patient Comments When she leans over, she gets a lot of pressure in head. Started allergy meds PT-OP-D Balance Start: 11/26/22 09:54 Freq: Status: Active Protocol: Document 11/26/22 09:54 [facility] (Rec: 11/26/22 10:36 [facility] [id number]) Balance Tests Single Limb Standing Single Limb- Right 5 sec Single Limb- Left 7 sec PT-OP-F Manual Assessment Start: 11/26/22 09:54 Freq: Status: Active Protocol: Document 11/26/22 09:54 [facility] (Rec: 11/26/22 10:36 [facility] [id number]) Manual Assessments Joint Mobility Assessment Joint Mobility Assessment equal greater troch and iliac crests B; sidebent to R, R shoulder lower than L, Humerus R is ant in glenoid PT-OP-G Mobility & Gait Start: 11/26/22 09:54 Freq: Status: Active Protocol: Document 11/26/22 09:54 [facility] (Rec: 11/26/22 10:36 [facility] [id number]) OP Gait Assessment Comments Gait Comments dec LUE swing, dec push off on LLE, excessive pelvis rotation PT-OP-J Posture/Palpation/Skin Start: 11/26/22 09:54 Freq: Status: Active Protocol: Document 04/24/23 10:54 [facility] (Rec: 04/24/23 18:25 [facility] [id number]) Posture Evaluation Roldan Postural Classification System Elbow Flexion Test 3 Lumbar Protective Mechanism Left AP 3 Lumbar Protective Mechanism Right AP 2 Lumbar Protective Mechanism Left PA 3 Lumbar Protective Mechanism Right PA 2 PT-OP-K Range of Motion Start: 11/26/22 09:54 Freq: Status: Active Protocol: Document 07/01/23 10:37 [facility] (Rec: 07/01/23 12:50 [facility] [id number]) Cervical Spine Range of Motion Cervical Spine Active Degrees Flexion 70 Extension 44 Rotation Left 51 Rotation Right 56 Lateral Flexion Left 33 Lateral Flexion Right 34 Comments pain w/r rot, L rot tight, ext pain post and L lat;tight B SB on R TMJ Range of Motion Comments Comments deviates L Shoulder Goniometric Range of Motion Shoulder Right Active Flexion 160 Extension 56 Abduction 180 External Rotation at 90 degrees 105 Abduction External Rotation at 0 degrees Abduction 74 Internal Rotation Behind Back (text) T9 Comments minor strain at end range w/90 /90 ER & strain w/IR (feels through R neck and into shoulder and elbow) Left Active Flexion 156 Extension 70 Abduction 180 External Rotation at 90 degrees 95 Abduction External Rotation at 0 degrees Abduction 52 Internal Rotation Behind Back (text) T5 PT-OP-L Special Tests Start: 11/26/22 09:54 Freq: Status: Active Protocol: Document 11/26/22 09:54 [facility] (Rec: 11/26/22 10:36 [facility] [id number]) Special Tests Shoulder Special Tests Garcia Michael Impingement Test Results neg Neer Impingement Test Results neg Empty Can Test Results neg Hip Special Tests Bev's Test Results mild tightness L Slump Test Results neg B Straight Leg Raise Test Results positive limited B Neural Special Tests- Upper Body Median Nerve Tension Test Results positve R tension Ulnar Nerve Tension Test Results neg Radial Nerve Tension Test Results neg PT-OP-M Strength Start: 11/26/22 09:54 Freq: Status: Active Protocol: Document 07/01/23 10:37 [facility] (Rec: 07/01/23 12:50 [facility] [id number]) Shoulder Strength Shoulder Manual Muscle Testing Right Flexion 5 Normal Extension 5 Normal Abduction (C5) 5 Normal External Rotation 5 Normal Internal Rotation 5 Normal Horizontal Abduction 5 Normal Horizontal Adduction 5 Normal Left Flexion 5 Normal Extension 5 Normal Abduction (C5) 5 Normal External Rotation 5 Normal Internal Rotation 5 Normal Horizontal Abduction 5 Normal Horizontal Adduction 5 Normal PT-OP-Q Treatments Start: 11/26/22 09:54 Freq: Status: Active Protocol: Document 07/07/23 09:04 [facility] (Rec: 07/07/23 10:05 [facility] [id number]) Therapeutic Exercises Supine Exercises tspine ext Supine Exercise Name over foam roll Reps/Minutes 10 foam roll Supine Exercise Name flex, Habd, abd Side bilateral Reps/Minutes 7 ea core Supine Exercise Name alt marches on foam roll Side bilateral Reps/Minutes 8 Comments arms down Manual Therapy Treatment Soft Tissue Mobilization cervical Body Location L UT Mobilization Type Sustained Pressure Comments w/ rot sitting Joint Mobilizations thoracic Comments seated T1-3 PA FM w/cover position & transverse R prone T1-3 transverse R and L FM w/UE positione din IR & ER PA T4-7 prone FM ribs Joint L cuadal 1st rib FM PT-OP-R Modalities Start: 11/26/22 09:54 Freq: Status: Active Protocol: Document 02/20/23 15:24 [facility] (Rec: 02/20/23 15:29 [facility] [id number]) Hot Pack/Cold Pack Treatment Cold Pack Location R shoulder & ribcage Treatment Duration (minutes) 10 PT-OP-T Assessment and Plan Start: 11/26/22 09:54 Freq: Status: Active Protocol: Document 07/07/23 09:04 [facility] (Rec: 07/07/23 10:05 [facility] [id number]) Physical Therapy Assessment Goals cervical Long-Term Goal (LTG) Pt will have full cervical ROM w/o inc pain. LTG Duration 09/23 ear Long-Term Goal (LTG) Pt will report no more feeling of ear fullness 07/01-feel like it will almost clear and get partially clear for short bits-improved LTG Duration 09/23/23 balance Long-Term Goal (LTG) pt will be able to do SLS for 10 sec B 02/03:19 sec R; 12 sec L but lat hip shear and UE flailing- goal met advance to 10 sec SLS w/hands at hips and no lat hip shear 04/24-improved to 10 sec L w/PT help w/set up and mirror and 7 sec w/R w/set up assist 07/01-improved to 17 sec L, 20 R w/slight hip drop but can do >10 sec w/cues LTG Duration achieved 07/01 ROM Etl Architect Goal (LTG) Pt will have R Shoulder AROM equal to L shoulder in order to allow for donning/doffing bra, reaching overhead, etc. 02/03-much improved but still limited -still can't get bra on/off post but can lift ahead 04/24-only R limited behind back ; tension at end range 07/01-some challenges w/ dressing w/tight clothes, mostly w/weird positions or IR behind back LTG Duration 09/23 strength Short Term Goal (STG) Pt will be indep w/HEP STG Duration achieved advancing as able Etl Architect Goal (LTG) pt will score at least 3/5 on LPM and EFT and at least 4+/5 on BUE and BLE MMT to show improved stability in order to do her job and daily activities w/less pain. 02/03-goal met w/UE strength; LE strength still limited and EFT & LPM 04/24-much improved LTG Duration achieved 07/01 work Etl Architect Goal (LTG) Pt will be able to carry and pull the objects she needs without inc pain. 02/03-has been limiting; still painful 04/24-making modifications -much less pain w/carrying LTG Duration achieved 07/01 Assessment Summary Assessment Pt started w/abot 25% L SB and improved about 75% and had 80 % rot R and 70% L and improved to 90% B. Ecnouraged to work on throacic mobility as this affects her neck and shoulder discomfort. Physical Therapy Plan Frequency and Duration Frequency of Treatment 1x/Week Duration of treatment (weeks) 12 Plan of Care Start Date 07/01/23 Plan of Care End Date 09/23/23 Next Visit Focus/Plan Next Note Type Treatment Note Next Visit Plan cont to work on upper cervical and cranium mobility & stability
--- NOTE | 2023-07-23 12:08 | PT.OTN ---
Current Diagnoses Other chronic pain (07/23/23) Pain in right shoulder (07/23/23) Pain in left thigh (07/23/23) Fibromyalgia (07/23/23) Difficulty in walking, not elsewhere classified (07/23/23) Abnormal posture (07/23/23) Weakness (07/23/23) Physical Therapy Treatment Note PT-OP-A Visit Information Start: 11/26/22 09:54 Freq: Status: Active Protocol: Document 07/23/23 11:52 [facility] (Rec: 07/23/23 12:08 [facility] [id number]) Out-Patient Physical Therapy Visit Information Visit Information Visit Type Treatment Note Visit Start Time 09:06 Visit Stop Time 09:46 Total Visit Minutes 40 Visit Number 41 Number of LIGHTING TECHNICIAN Visits 0 PT-OP-B Current Condition Start: 11/26/22 09:54 Freq: Status: Active Protocol: Document 11/26/22 09:54 [facility] (Rec: 11/26/22 10:36 [facility] [id number]) Current Condition History of Current Condition Onset Date 1-1.5 ear ago Current Complaints R shoulder pain & L hip and leg pain History of Current Condition Pt reports about 1-1.5 years ago, 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 She has fibromyalgia so she has travelling pain. The things she can't do when things are behind her. She has trouble carrying things up narrow hallways and w/pulling things. It wasn't a one time thing but more of a gradual thing. Her xray didn't show much, but MRI showed 5 things that were moderate. 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 The ortho gave a cortizone shot that gave 3-4 weeks and got a different shot in a different location and when that block wore off, she had extreme pain for 18 hours but it didn't help. She went to OT w/Vivian at [facility]. She has been seeing a naturopathic doctor and has been doing prolo and feels like that is helping her. She used to lose her power when she was reaching overhead but that is better. Her main concern in ROM. She is doing a lot of stretches from the OT. Pt woke up 2 weeks ago w/ really bad L hip pain and it is keeping her up and night and it is radiating down L lat and ant down through lower leg. Pt has head pressure when she bends over that lasts until she sits back up. Has been having sleep issues but did do a sleep study. Treatment Goals Patient/Caregiver Goals Wants to be able to IR behind back so she can put on a bra. PT-OP-C Subjective Start: 11/26/22 09:54 Freq: Status: Active Protocol: Document 07/23/23 11:52 [facility] (Rec: 07/23/23 12:08 [facility] [id number]) OP-PT Subjective Patient Comments Patient Comments Pt reports she feels like her ears are starting to feel more clear occ like normal but still don't fully clear PT-OP-D Balance Start: 11/26/22 09:54 Freq: Status: Active Protocol: Document 11/26/22 09:54 [facility] (Rec: 11/26/22 10:36 [facility] [id number]) Balance Tests Single Limb Standing Single Limb- Right 5 sec Single Limb- Left 7 sec PT-OP-F Manual Assessment Start: 11/26/22 09:54 Freq: Status: Active Protocol: Document 11/26/22 09:54 [facility] (Rec: 11/26/22 10:36 [facility] [id number]) Manual Assessments Joint Mobility Assessment Joint Mobility Assessment equal greater troch and iliac crests B; sidebent to R, R shoulder lower than L, Humerus R is ant in glenoid PT-OP-G Mobility & Gait Start: 11/26/22 09:54 Freq: Status: Active Protocol: Document 11/26/22 09:54 [facility] (Rec: 11/26/22 10:36 [facility] [id number]) OP Gait Assessment Comments Gait Comments dec LUE swing, dec push off on LLE, excessive pelvis rotation PT-OP-J Posture/Palpation/Skin Start: 11/26/22 09:54 Freq: Status: Active Protocol: Document 04/24/23 10:54 [facility] (Rec: 04/24/23 18:25 [facility] [id number]) Posture Evaluation Roldan Postural Classification System Elbow Flexion Test 3 Lumbar Protective Mechanism Left AP 3 Lumbar Protective Mechanism Right AP 2 Lumbar Protective Mechanism Left PA 3 Lumbar Protective Mechanism Right PA 2 PT-OP-K Range of Motion Start: 11/26/22 09:54 Freq: Status: Active Protocol: Document 07/01/23 10:37 [facility] (Rec: 07/01/23 12:50 [facility] [id number]) Cervical Spine Range of Motion Cervical Spine Active Degrees Flexion 70 Extension 44 Rotation Left 51 Rotation Right 56 Lateral Flexion Left 33 Lateral Flexion Right 34 Comments pain w/r rot, L rot tight, ext pain post and L lat;tight B SB on R TMJ Range of Motion Comments Comments deviates L Shoulder Goniometric Range of Motion Shoulder Right Active Flexion 160 Extension 56 Abduction 180 External Rotation at 90 degrees 105 Abduction External Rotation at 0 degrees Abduction 74 Internal Rotation Behind Back (text) T9 Comments minor strain at end range w/90 /90 ER & strain w/IR (feels through R neck and into shoulder and elbow) Left Active Flexion 156 Extension 70 Abduction 180 External Rotation at 90 degrees 95 Abduction External Rotation at 0 degrees Abduction 52 Internal Rotation Behind Back (text) T5 PT-OP-L Special Tests Start: 11/26/22 09:54 Freq: Status: Active Protocol: Document 11/26/22 09:54 [facility] (Rec: 11/26/22 10:36 [facility] [id number]) Special Tests Shoulder Special Tests Garcia Michael Impingement Test Results neg Neer Impingement Test Results neg Empty Can Test Results neg Hip Special Tests Bev's Test Results mild tightness L Slump Test Results neg B Straight Leg Raise Test Results positive limited B Neural Special Tests- Upper Body Median Nerve Tension Test Results positve R tension Ulnar Nerve Tension Test Results neg Radial Nerve Tension Test Results neg PT-OP-M Strength Start: 11/26/22 09:54 Freq: Status: Active Protocol: Document 07/01/23 10:37 [facility] (Rec: 07/01/23 12:50 [facility] [id number]) Shoulder Strength Shoulder Manual Muscle Testing Right Flexion 5 Normal Extension 5 Normal Abduction (C5) 5 Normal External Rotation 5 Normal Internal Rotation 5 Normal Horizontal Abduction 5 Normal Horizontal Adduction 5 Normal Left Flexion 5 Normal Extension 5 Normal Abduction (C5) 5 Normal External Rotation 5 Normal Internal Rotation 5 Normal Horizontal Abduction 5 Normal Horizontal Adduction 5 Normal PT-OP-Q Treatments Start: 11/26/22 09:54 Freq: Status: Active Protocol: Document 07/23/23 11:52 [facility] (Rec: 07/23/23 12:08 [facility] [id number]) Therapeutic Exercises Sitting Exercises jaw opening Sitting Exercise Name tongue on soft paletter Reps/Minutes 5 scap set Side bilateral Reps/Minutes 2x5 Manual Therapy Treatment Soft Tissue Mobilization jaw Body Location R masseter, temporalis and post and inf jaw Mobilization Type Sustained Pressure Intensity/Depth Moderate Body Position Supine Comments w/gentle jaw opening cervical Body Location R scalenes and B SCM Mobilization Type Sustained Pressure Comments w.rot and jaw opening Joint Mobilizations TMJ Comments PA L FM cervical Comments transverse glide C 3 and 4 FM R PT-OP-R Modalities Start: 11/26/22 09:54 Freq: Status: Active Protocol: Document 02/20/23 15:24 [facility] (Rec: 02/20/23 15:29 [facility] [id number]) Hot Pack/Cold Pack Treatment Cold Pack Location R shoulder & ribcage Treatment Duration (minutes) 10 PT-OP-T Assessment and Plan Start: 11/26/22 09:54 Freq: Status: Active Protocol: Document 07/23/23 11:52 [facility] (Rec: 07/23/23 12:08 [facility] [id number]) Physical Therapy Assessment Goals cervical Chief Engineer Research Goal (LTG) Pt will have full cervical ROM w/o inc pain. LTG Duration 09/23 ear Chief Engineer Research Goal (LTG) Pt will report no more feeling of ear fullness 07/01-feel like it will almost clear and get partially clear for short bits-improved LTG Duration 09/23/23 balance Mcfp Goal (LTG) pt will be able to do SLS for 10 sec B 02/03:19 sec R; 12 sec L but lat hip shear and UE flailing- goal met advance to 10 sec SLS w/hands at hips and no lat hip shear 04/24-improved to 10 sec L w/PT help w/set up and mirror and 7 sec w/R w/set up assist 07/01-improved to 17 sec L, 20 R w/slight hip drop but can do >10 sec w/cues LTG Duration achieved 07/01 ROM Mcfp Goal (LTG) Pt will have R Shoulder AROM equal to L shoulder in order to allow for donning/doffing bra, reaching overhead, etc. 02/03-much improved but still limited -still can't get bra on/off post but can lift ahead 04/24-only R limited behind back ; tension at end range 07/01-some challenges w/ dressing w/tight clothes, mostly w/weird positions or IR behind back LTG Duration 09/23 strength Short Term Goal (STG) Pt will be indep w/HEP STG Duration achieved advancing as able Chief Engineer Research Goal (LTG) pt will score at least 3/5 on LPM and EFT and at least 4+/5 on BUE and BLE MMT to show improved stability in order to do her job and daily activities w/less pain. 02/03-goal met w/UE strength; LE strength still limited and EFT & LPM 04/24-much improved LTG Duration achieved 07/01 work Mcfp Goal (LTG) Pt will be able to carry and pull the objects she needs without inc pain. 02/03-has been limiting; still painful 04/24-making modifications -much less pain w/carrying LTG Duration achieved 07/01 Assessment Summary Assessment Pt had about 80% rot R and 75% L and improved about 5% ea after manual along w/90 deg passive abd B to 105 R and 110 L. She reports feeling pull on ear w/work in neck and does have signfiicant tension at jaw which likely is creating ear fullness. Physical Therapy Plan Frequency and Duration Frequency of Treatment 1x/Week Duration of treatment (weeks) 12 Plan of Care Start Date 07/01/23 Plan of Care End Date 09/23/23 Next Visit Focus/Plan Next Note Type Treatment Note Next Visit Plan cont to work on upper cervical and cranium mobility & stability
--- NOTE | 2023-07-29 12:58 | PT.OTN ---
Current Diagnoses Other chronic pain (07/29/23) Pain in right shoulder (07/29/23) Pain in left thigh (07/29/23) Fibromyalgia (07/29/23) Difficulty in walking, not elsewhere classified (07/29/23) Abnormal posture (07/29/23) Weakness (07/29/23) Physical Therapy Treatment Note PT-OP-A Visit Information Start: 11/26/22 09:54 Freq: Status: Active Protocol: Document 07/29/23 12:50 [facility] (Rec: 07/29/23 12:58 [facility] [id number]) Out-Patient Physical Therapy Visit Information Visit Information Visit Type Treatment Note Visit Start Time 09:06 Visit Stop Time 09:47 Total Visit Minutes 41 Visit Number 42 Number of HEALTH TECH Visits 0 PT-OP-B Current Condition Start: 11/26/22 09:54 Freq: Status: Active Protocol: Document 11/26/22 09:54 [facility] (Rec: 11/26/22 10:36 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 She has fibromyalgia so she has travelling pain. The things she can't do when things are behind her. She has trouble carrying things up narrow hallways and w/pulling things. It wasn't a one time thing but more of a gradual thing. Her xray didn't show much, but MRI showed 5 things that were moderate. 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 The ortho gave a cortizone shot that gave 3-4 weeks and got a different shot in a different location and when that block wore off, she had extreme pain for 18 hours but it didn't help. She went to OT w/Vivian at [facility]. She has been seeing a naturopathic doctor and has been doing prolo and feels like that is helping her. She used to lose her power when she was reaching overhead but that is better. Her main concern in ROM. She is doing a lot of stretches from the OT. Pt woke up 2 weeks ago w/ really bad L hip pain and it is keeping her up and night and it is radiating down L lat and ant down through lower leg. Pt has head pressure when she bends over that lasts until she sits back up. Has been having sleep issues but did do a sleep study. Treatment Goals Patient/Caregiver Goals Wants to be able to IR behind back so she can put on a bra. PT-OP-C Subjective Start: 11/26/22 09:54 Freq: Status: Active Protocol: Document 07/29/23 12:50 [facility] (Rec: 07/29/23 12:58 [facility] [id number]) OP-PT Subjective Patient Comments Patient Comments Pt reports she woke up w/her neck sore today PT-OP-D Balance Start: 11/26/22 09:54 Freq: Status: Active Protocol: Document 11/26/22 09:54 [facility] (Rec: 11/26/22 10:36 [facility] [id number]) Balance Tests Single Limb Standing Single Limb- Right 5 sec Single Limb- Left 7 sec PT-OP-F Manual Assessment Start: 11/26/22 09:54 Freq: Status: Active Protocol: Document 11/26/22 09:54 [facility] (Rec: 11/26/22 10:36 [facility] [id number]) Manual Assessments Joint Mobility Assessment Joint Mobility Assessment equal greater troch and iliac crests B; sidebent to R, R shoulder lower than L, Humerus R is ant in glenoid PT-OP-G Mobility & Gait Start: 11/26/22 09:54 Freq: Status: Active Protocol: Document 11/26/22 09:54 [facility] (Rec: 11/26/22 10:36 [facility] [id number]) OP Gait Assessment Comments Gait Comments dec LUE swing, dec push off on LLE, excessive pelvis rotation PT-OP-J Posture/Palpation/Skin Start: 11/26/22 09:54 Freq: Status: Active Protocol: Document 04/24/23 10:54 [facility] (Rec: 04/24/23 18:25 [facility] [id number]) Posture Evaluation Roldan Postural Classification System Elbow Flexion Test 3 Lumbar Protective Mechanism Left AP 3 Lumbar Protective Mechanism Right AP 2 Lumbar Protective Mechanism Left PA 3 Lumbar Protective Mechanism Right PA 2 PT-OP-K Range of Motion Start: 11/26/22 09:54 Freq: Status: Active Protocol: Document 07/01/23 10:37 [facility] (Rec: 07/01/23 12:50 [facility] [id number]) Cervical Spine Range of Motion Cervical Spine Active Degrees Flexion 70 Extension 44 Rotation Left 51 Rotation Right 56 Lateral Flexion Left 33 Lateral Flexion Right 34 Comments pain w/r rot, L rot tight, ext pain post and L lat;tight B SB on R TMJ Range of Motion Comments Comments deviates L Shoulder Goniometric Range of Motion Shoulder Right Active Flexion 160 Extension 56 Abduction 180 External Rotation at 90 degrees 105 Abduction External Rotation at 0 degrees Abduction 74 Internal Rotation Behind Back (text) T9 Comments minor strain at end range w/90 /90 ER & strain w/IR (feels through R neck and into shoulder and elbow) Left Active Flexion 156 Extension 70 Abduction 180 External Rotation at 90 degrees 95 Abduction External Rotation at 0 degrees Abduction 52 Internal Rotation Behind Back (text) T5 PT-OP-L Special Tests Start: 11/26/22 09:54 Freq: Status: Active Protocol: Document 11/26/22 09:54 [facility] (Rec: 11/26/22 10:36 [facility] [id number]) Special Tests Shoulder Special Tests Garcia Michael Impingement Test Results neg Neer Impingement Test Results neg Empty Can Test Results neg Hip Special Tests Bev's Test Results mild tightness L Slump Test Results neg B Straight Leg Raise Test Results positive limited B Neural Special Tests- Upper Body Median Nerve Tension Test Results positve R tension Ulnar Nerve Tension Test Results neg Radial Nerve Tension Test Results neg PT-OP-M Strength Start: 11/26/22 09:54 Freq: Status: Active Protocol: Document 07/01/23 10:37 [facility] (Rec: 07/01/23 12:50 [facility] [id number]) Shoulder Strength Shoulder Manual Muscle Testing Right Flexion 5 Normal Extension 5 Normal Abduction (C5) 5 Normal External Rotation 5 Normal Internal Rotation 5 Normal Horizontal Abduction 5 Normal Horizontal Adduction 5 Normal Left Flexion 5 Normal Extension 5 Normal Abduction (C5) 5 Normal External Rotation 5 Normal Internal Rotation 5 Normal Horizontal Abduction 5 Normal Horizontal Adduction 5 Normal PT-OP-Q Treatments Start: 11/26/22 09:54 Freq: Status: Active Protocol: Document 07/29/23 12:50 [facility] (Rec: 07/29/23 12:58 [id number] Therapeutic Exercises Sitting Exercises axial elongation Equipment Used orange band Reps/Minutes 10 Comments cues to elongation post w/ gentle tuck jaw opening Sitting Exercise Name tongue on soft paletter Reps/Minutes 5 Standing Exercises ER Standing Exercise Name w/ pronation Side bilateral Equipment Used orange ban Reps/Minutes 15 Comments cues full range Manual Therapy Treatment Soft Tissue Mobilization jaw Body Location R masseter, temporalis and post and inf jaw Mobilization Type Sustained Pressure Intensity/Depth Moderate Body Position Supine Comments w/gentle jaw opening cranium Body Location R>L fascia Mobilization Type Sustained Pressure Intensity/Depth Superficial Joint Mobilizations cervical Comments AP C1 and 2 R FM thoracic Comments T1-2 transverse L FM Self-Care/Home Management Treatment Education Other Education 5min: sleep position w/set up for alignment of spine w/towel , pillow under head/neck and pillow btwn legs. JUAN A training edu of importance of starting in good positon PT-OP-R Modalities Start: 11/26/22 09:54 Freq: Status: Active Protocol: Document 02/20/23 15:24 [facility] (Rec: 02/20/23 15:29 [facility] [id number]) Hot Pack/Cold Pack Treatment Cold Pack Location R shoulder & ribcage Treatment Duration (minutes) 10 PT-OP-T Assessment and Plan Start: 11/26/22 09:54 Freq: Status: Active Protocol: Document 07/29/23 12:50 [facility] (Rec: 07/29/23 12:58 [facility] [id number]) Physical Therapy Assessment Goals cervical Acting Professor Goal (LTG) Pt will have full cervical ROM w/o inc pain. LTG Duration 09/23 ear Acting Professor Goal (LTG) Pt will report no more feeling of ear fullness 07/01-feel like it will almost clear and get partially clear for short bits-improved LTG Duration 09/23/23 balance Acting Professor Goal (LTG) pt will be able to do SLS for 10 sec B 02/03:19 sec R; 12 sec L but lat hip shear and UE flailing- goal met advance to 10 sec SLS w/hands at hips and no lat hip shear 04/24-improved to 10 sec L w/PT help w/set up and mirror and 7 sec w/R w/set up assist 07/01-improved to 17 sec L, 20 R w/slight hip drop but can do >10 sec w/cues LTG Duration achieved 07/01 ROM Detention Goal (LTG) Pt will have R Shoulder AROM equal to L shoulder in order to allow for donning/doffing bra, reaching overhead, etc. 02/03-much improved but still limited -still can't get bra on/off post but can lift ahead 04/24-only R limited behind back ; tension at end range 07/01-some challenges w/ dressing w/tight clothes, mostly w/weird positions or IR behind back LTG Duration 09/23 strength Short Term Goal (STG) Pt will be indep w/HEP STG Duration achieved advancing as able Detention Goal (LTG) pt will score at least 3/5 on LPM and EFT and at least 4+/5 on BUE and BLE MMT to show improved stability in order to do her job and daily activities w/less pain. 02/03-goal met w/UE strength; LE strength still limited and EFT & LPM 04/24-much improved LTG Duration achieved 07/01 work Detention Goal (LTG) Pt will be able to carry and pull the objects she needs without inc pain. 02/03-has been limiting; still painful 04/24-making modifications -much less pain w/carrying LTG Duration achieved 07/01 Assessment Summary Assessment Pt had improved rot from 70% to 80% R after manual along w/ improved R SB. She cont to have a lot of tightness in cervical region and is encouraged [place] Physical Therapy Plan Frequency and Duration Frequency of Treatment 1x/Week Duration of treatment (weeks) 12 Plan of Care Start Date 07/01/23 Plan of Care End Date 09/23/23 Next Visit Focus/Plan Next Note Type Treatment Note Next Visit Plan cont to work on upper cervical and cranium mobility & stability
--- NOTE | 2023-08-05 16:54 | PT.OTN ---
Current Diagnoses Other chronic pain (08/05/23) Pain in right shoulder (08/05/23) Pain in left thigh (08/05/23) Fibromyalgia (08/05/23) Difficulty in walking, not elsewhere classified (08/05/23) Abnormal posture (08/05/23) Weakness (08/05/23) Physical Therapy Treatment Note PT-OP-A Visit Information Start: 11/26/22 09:54 Freq: Status: Active Protocol: Document 08/05/23 11:14 [facility] (Rec: 08/05/23 16:54 [facility] [id number]) Out-Patient Physical Therapy Visit Information Visit Information Visit Type Treatment Note Visit Start Time 11:14 Visit Stop Time 11:55 Total Visit Minutes 41 Visit Number 43 Number of CASH POSTER Visits 0 PT-OP-B Current Condition Start: 11/26/22 09:54 Freq: Status: Active Protocol: Document 11/26/22 09:54 [facility] (Rec: 11/26/22 10:36 [facility] [id number]) Current Condition History of Current Condition Onset Date 1-1.5 ear ago Current Complaints R shoulder pain & L hip and leg pain History of Current Condition Pt reports about 1-1.5 years ago, 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 She has fibromyalgia so she has travelling pain. The things she can't do when things are behind her. She has trouble carrying things up narrow hallways and w/pulling things. It wasn't a one time thing but more of a gradual thing. Her xray didn't show much, but MRI showed 5 things that were moderate. 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 The ortho gave a cortizone shot that gave 3-4 weeks and got a different shot in a different location and when that block wore off, she had extreme pain for 18 hours but it didn't help. She went to OT w/Vivian at [facility]. She has been seeing a naturopathic doctor and has been doing prolo and feels like that is helping her. She used to lose her power when she was reaching overhead but that is better. Her main concern in ROM. She is doing a lot of stretches from the OT. Pt woke up 2 weeks ago w/ really bad L hip pain and it is keeping her up and night and it is radiating down L lat and ant down through lower leg. Pt has head pressure when she bends over that lasts until she sits back up. Has been having sleep issues but did do a sleep study. Treatment Goals Patient/Caregiver Goals Wants to be able to IR behind back so she can put on a bra. PT-OP-C Subjective Start: 11/26/22 09:54 Freq: Status: Active Protocol: Document 08/05/23 11:14 [facility] (Rec: 08/05/23 16:54 [facility] [id number]) OP-PT Subjective Patient Comments Patient Comments Pt reports ears are still really bothering her. Neck is a little better. PT-OP-D Balance Start: 11/26/22 09:54 Freq: Status: Active Protocol: Document 11/26/22 09:54 [facility] (Rec: 11/26/22 10:36 [facility] [id number]) Balance Tests Single Limb Standing Single Limb- Right 5 sec Single Limb- Left 7 sec PT-OP-F Manual Assessment Start: 11/26/22 09:54 Freq: Status: Active Protocol: Document 11/26/22 09:54 [facility] (Rec: 11/26/22 10:36 [facility] [id number]) Manual Assessments Joint Mobility Assessment Joint Mobility Assessment equal greater troch and iliac crests B; sidebent to R, R shoulder lower than L, Humerus R is ant in glenoid PT-OP-G Mobility & Gait Start: 11/26/22 09:54 Freq: Status: Active Protocol: Document 11/26/22 09:54 [facility] (Rec: 11/26/22 10:36 [facility] [id number]) OP Gait Assessment Comments Gait Comments dec LUE swing, dec push off on LLE, excessive pelvis rotation PT-OP-J Posture/Palpation/Skin Start: 11/26/22 09:54 Freq: Status: Active Protocol: Document 04/24/23 10:54 [facility] (Rec: 04/24/23 18:25 [facility] [id number]) Posture Evaluation Roldan Postural Classification System Elbow Flexion Test 3 Lumbar Protective Mechanism Left AP 3 Lumbar Protective Mechanism Right AP 2 Lumbar Protective Mechanism Left PA 3 Lumbar Protective Mechanism Right PA 2 PT-OP-K Range of Motion Start: 11/26/22 09:54 Freq: Status: Active Protocol: Document 07/01/23 10:37 [facility] (Rec: 07/01/23 12:50 [facility] [id number]) Cervical Spine Range of Motion Cervical Spine Active Degrees Flexion 70 Extension 44 Rotation Left 51 Rotation Right 56 Lateral Flexion Left 33 Lateral Flexion Right 34 Comments pain w/r rot, L rot tight, ext pain post and L lat;tight B SB on R TMJ Range of Motion Comments Comments deviates L Shoulder Goniometric Range of Motion Shoulder Right Active Flexion 160 Extension 56 Abduction 180 External Rotation at 90 degrees 105 Abduction External Rotation at 0 degrees Abduction 74 Internal Rotation Behind Back (text) T9 Comments minor strain at end range w/90 /90 ER & strain w/IR (feels through R neck and into shoulder and elbow) Left Active Flexion 156 Extension 70 Abduction 180 External Rotation at 90 degrees 95 Abduction External Rotation at 0 degrees Abduction 52 Internal Rotation Behind Back (text) T5 PT-OP-L Special Tests Start: 11/26/22 09:54 Freq: Status: Active Protocol: Document 11/26/22 09:54 [facility] (Rec: 11/26/22 10:36 [facility] [id number]) Special Tests Shoulder Special Tests Garcia Michael Impingement Test Results neg Neer Impingement Test Results neg Empty Can Test Results neg Hip Special Tests Bev's Test Results mild tightness L Slump Test Results neg B Straight Leg Raise Test Results positive limited B Neural Special Tests- Upper Body Median Nerve Tension Test Results positve R tension Ulnar Nerve Tension Test Results neg Radial Nerve Tension Test Results neg PT-OP-M Strength Start: 11/26/22 09:54 Freq: Status: Active Protocol: Document 07/01/23 10:37 [facility] (Rec: 07/01/23 12:50 [facility] [id number]) Shoulder Strength Shoulder Manual Muscle Testing Right Flexion 5 Normal Extension 5 Normal Abduction (C5) 5 Normal External Rotation 5 Normal Internal Rotation 5 Normal Horizontal Abduction 5 Normal Horizontal Adduction 5 Normal Left Flexion 5 Normal Extension 5 Normal Abduction (C5) 5 Normal External Rotation 5 Normal Internal Rotation 5 Normal Horizontal Abduction 5 Normal Horizontal Adduction 5 Normal PT-OP-Q Treatments Start: 11/26/22 09:54 Freq: Status: Active Protocol: Document 08/05/23 11:14 [facility] (Rec: 08/05/23 16:54 [facility] [id number]) Manual Therapy Treatment Soft Tissue Mobilization jaw Body Location R masseter, temporalis and post and inf jaw Mobilization Type Sustained Pressure Intensity/Depth Moderate Body Position Supine Comments w/gentle jaw opening Joint Mobilizations cervical Comments C1 and 2 transverse C1 and 2 UPA L FM thoracic Comments transverse T11 R FM rib downglide rib 7 FM and tspine rib upglide rib 10 w/tspine FM Self-Care/Home Management Treatment Education Other Education 8 min: edu on discussing w/her MD who does acupuncture and discuss seeing his cowroker that is a DO. Edu to cont jaw opening exercise and chin tucks in school PT-OP-R Modalities Start: 11/26/22 09:54 Freq: Status: Active Protocol: Document 02/20/23 15:24 [facility] (Rec: 02/20/23 15:29 [facility] [id number]) Hot Pack/Cold Pack Treatment Cold Pack Location R shoulder & ribcage Treatment Duration (minutes) 10 PT-OP-T Assessment and Plan Start: 11/26/22 09:54 Freq: Status: Active Protocol: Document 08/05/23 11:14 [facility] (Rec: 08/05/23 16:54 [facility] [id number]) Physical Therapy Assessment Goals cervical Mash Filter Press Operator Goal (LTG) Pt will have full cervical ROM w/o inc pain. LTG Duration 09/23 ear Group Home Goal (LTG) Pt will report no more feeling of ear fullness 07/01-feel like it will almost clear and get partially clear for short bits-improved LTG Duration 09/23/23 balance Mash Filter Press Operator Goal (LTG) pt will be able to do SLS for 10 sec B 02/03:19 sec R; 12 sec L but lat hip shear and UE flailing- goal met advance to 10 sec SLS w/hands at hips and no lat hip shear 04/24-improved to 10 sec L w/PT help w/set up and mirror and 7 sec w/R w/set up assist 07/01-improved to 17 sec L, 20 R w/slight hip drop but can do >10 sec w/cues LTG Duration achieved 07/01 ROM Mash Filter Press Operator Goal (LTG) Pt will have R Shoulder AROM equal to L shoulder in order to allow for donning/doffing bra, reaching overhead, etc. 02/03-much improved but still limited -still can't get bra on/off post but can lift ahead 04/24-only R limited behind back ; tension at end range 07/01-some challenges w/ dressing w/tight clothes, mostly w/weird positions or IR behind back LTG Duration 09/23 strength Short Term Goal (STG) Pt will be indep w/HEP STG Duration achieved advancing as able Mash Filter Press Operator Goal (LTG) pt will score at least 3/5 on LPM and EFT and at least 4+/5 on BUE and BLE MMT to show improved stability in order to do her job and daily activities w/less pain. 02/03-goal met w/UE strength; LE strength still limited and EFT & LPM 04/24-much improved LTG Duration achieved 07/01 work Mash Filter Press Operator Goal (LTG) Pt will be able to carry and pull the objects she needs without inc pain. 02/03-has been limiting; still painful 04/24-making modifications -much less pain w/carrying LTG Duration achieved 07/01 Assessment Summary Assessment Pt came in w/better cercvical ROM today and overall improved rotaiton but limtied thorarcic rotation L that improved to full rot after manual. Improved cervical SB w /manual Physical Therapy Plan Frequency and Duration Frequency of Treatment 1x/Week Duration of treatment (weeks) 12 Plan of Care Start Date 07/01/23 Plan of Care End Date 09/23/23 Next Visit Focus/Plan Next Note Type Treatment Note Next Visit Plan cont to work on upper cervical and cranium mobility & stability
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
--- NOTE | 2023-10-01 10:52 | PT.OPDS ---
Current Diagnoses Other chronic pain (08/05/23) Pain in right shoulder (08/05/23) Pain in left thigh (08/05/23) Fibromyalgia (08/05/23) Difficulty in walking, not elsewhere classified (08/05/23) Abnormal posture (08/05/23) Weakness (08/05/23) Visit Care Team Role Provider Type Jenny Manzo MD Family Provider Physician Specialty: Gynecology LIDAR TECHNICIAN Obstetrics Address: [address] [place] [address], [id number] Email: [email or web address] Quang Webb MD Attending Provider Physician Primary Care Provider Referring Provider Specialty: Family Practice Address: [address] [place] [address], [id number] Email: [email or web address] Visit Number Visit Number [id number] Discharge Summary PT-OP-B Current Condition Start: 11/26/22 09:54 Freq: Status: Active Protocol: Document 11/26/22 09:54 [facility] (Rec: 11/26/22 10:36 [facility] [id number]) Current Condition History of Current Condition Onset Date 1-1.5 ear ago Current Complaints R shoulder pain & L hip and leg pain History of Current Condition Pt reports about 1-1.5 years ago, 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 She has fibromyalgia so she has travelling pain. The things she can't do when things are behind her. She has trouble carrying things up narrow hallways and w/pulling things. It wasn't a one time thing but more of a gradual thing. Her xray didn't show much, but MRI showed 5 things that were moderate. 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 The ortho gave a cortizone shot that gave 3-4 weeks and got a different shot in a different location and when that block wore off, she had extreme pain for 18 hours but it didn't help. She went to OT w/Vivian at [facility]. She has been seeing a naturopathic doctor and has been doing prolo and feels like that is helping her. She used to lose her power when she was reaching overhead but that is better. Her main concern in ROM. She is doing a lot of stretches from the OT. Pt woke up 2 weeks ago w/ really bad L hip pain and it is keeping her up and night and it is radiating down L lat and ant down through lower leg. Pt has head pressure when she bends over that lasts until she sits back up. Has been having sleep issues but did do a sleep study. Treatment Goals Patient/Caregiver Goals Wants to be able to IR behind back so she can put on a bra. PT-OP-C Subjective Start: 11/26/22 09:54 Freq: Status: Active Protocol: Document 08/05/23 11:14 [facility] (Rec: 08/05/23 16:54 [facility] [id number]) OP-PT Subjective Patient Comments Patient Comments Pt reports ears are still really bothering her. Neck is a little better. PT-OP-D Balance Start: 11/26/22 09:54 Freq: Status: Active Protocol: Document 11/26/22 09:54 [facility] (Rec: 11/26/22 10:36 [facility] [id number]) Balance Tests Single Limb Standing Single Limb- Right 5 sec Single Limb- Left 7 sec PT-OP-F Manual Assessment Start: 11/26/22 09:54 Freq: Status: Active Protocol: Document 11/26/22 09:54 [facility] (Rec: 11/26/22 10:36 [facility] [id number]) Manual Assessments Joint Mobility Assessment Joint Mobility Assessment equal greater troch and iliac crests B; sidebent to R, R shoulder lower than L, Humerus R is ant in glenoid PT-OP-G Mobility & Gait Start: 11/26/22 09:54 Freq: Status: Active Protocol: Document 11/26/22 09:54 [facility] (Rec: 11/26/22 10:36 [facility] [id number]) OP Gait Assessment Comments Gait Comments dec LUE swing, dec push off on LLE, excessive pelvis rotation PT-OP-J Posture/Palpation/Skin Start: 11/26/22 09:54 Freq: Status: Active Protocol: Document 04/24/23 10:54 [facility] (Rec: 04/24/23 18:25 [facility] [id number]) Posture Evaluation [facility] Postural Classification System Elbow Flexion Test 3 Lumbar Protective Mechanism Left AP 3 Lumbar Protective Mechanism Right AP 2 Lumbar Protective Mechanism Left PA 3 Lumbar Protective Mechanism Right PA 2 PT-OP-K Range of Motion Start: 11/26/22 09:54 Freq: Status: Active Protocol: Document 07/01/23 10:37 [facility] (Rec: 07/01/23 12:50 [facility] [id number]) Cervical Spine Range of Motion Cervical Spine Active Degrees Flexion 70 Extension 44 Rotation Left 51 Rotation Right 56 Lateral Flexion Left 33 Lateral Flexion Right 34 Comments pain w/r rot, L rot tight, ext pain post and L lat;tight B SB on R TMJ Range of Motion Comments Comments deviates L Shoulder Goniometric Range of Motion Shoulder Right Active Flexion 160 Extension 56 Abduction 180 External Rotation at 90 degrees 105 Abduction External Rotation at 0 degrees Abduction 74 Internal Rotation Behind Back (text) T9 Comments minor strain at end range w/90 /90 ER & strain w/IR (feels through R neck and into shoulder and elbow) Left Active Flexion 156 Extension 70 Abduction 180 External Rotation at 90 degrees 95 Abduction External Rotation at 0 degrees Abduction 52 Internal Rotation Behind Back (text) T5 PT-OP-L Special Tests Start: 11/26/22 09:54 Freq: Status: Active Protocol: Document 11/26/22 09:54 [facility] (Rec: 11/26/22 10:36 [facility] [id number]) Special Tests Shoulder Special Tests Garcia Michael Impingement Test Results neg Neer Impingement Test Results neg Empty Can Test Results neg Hip Special Tests Bev's Test Results mild tightness L Slump Test Results neg B Straight Leg Raise Test Results positive limited B Neural Special Tests- Upper Body Median Nerve Tension Test Results positve R tension Ulnar Nerve Tension Test Results neg Radial Nerve Tension Test Results neg PT-OP-M Strength Start: 11/26/22 09:54 Freq: Status: Active Protocol: Document 07/01/23 10:37 [facility] (Rec: 07/01/23 12:50 [facility] [id number]) Shoulder Strength Shoulder Manual Muscle Testing Right Flexion 5 Normal Extension 5 Normal Abduction (C5) 5 Normal External Rotation 5 Normal Internal Rotation 5 Normal Horizontal Abduction 5 Normal Horizontal Adduction 5 Normal Left Flexion 5 Normal Extension 5 Normal Abduction (C5) 5 Normal External Rotation 5 Normal Internal Rotation 5 Normal Horizontal Abduction 5 Normal Horizontal Adduction 5 Normal PT-OP-T Assessment and Plan Start: 11/26/22 09:54 Freq: Status: Active Protocol: Document 10/01/23 10:48 [facility] (Rec: 10/01/23 10:52 [facility] [id number]) Physical Therapy Assessment Goals cervical Development Trainer Goal (LTG) Pt will have full cervical ROM w/o inc pain. LTG Duration 09/23 ear Senior Care Goal (LTG) Pt will report no more feeling of ear fullness 07/01-feel like it will almost clear and get partially clear for short bits-improved LTG Duration 09/23/23 balance Senior Care Goal (LTG) pt will be able to do SLS for 10 sec B 02/03:19 sec R; 12 sec L but lat hip shear and UE flailing- goal met advance to 10 sec SLS w/hands at hips and no lat hip shear 04/24-improved to 10 sec L w/PT help w/set up and mirror and 7 sec w/R w/set up assist 07/01-improved to 17 sec L, 20 R w/slight hip drop but can do >10 sec w/cues LTG Duration achieved 07/01 ROM Senior Care Goal (LTG) Pt will have R Shoulder AROM equal to L shoulder in order to allow for donning/doffing bra, reaching overhead, etc. 02/03-much improved but still limited -still can't get bra on/off post but can lift ahead 04/24-only R limited behind back ; tension at end range 07/01-some challenges w/ dressing w/tight clothes, mostly w/weird positions or IR behind back LTG Duration 09/23 strength Short Term Goal (STG) Pt will be indep w/HEP STG Duration achieved advancing as able Senior Care Goal (LTG) pt will score at least 3/5 on LPM and EFT and at least 4+/5 on BUE and BLE MMT to show improved stability in order to do her job and daily activities w/less pain. 02/03-goal met w/UE strength; LE strength still limited and EFT & LPM 04/24-much improved LTG Duration achieved 07/01 work Development Trainer Goal (LTG) Pt will be able to carry and pull the objects she needs without inc pain. 02/03-has been limiting; still painful 04/24-making modifications -much less pain w/carrying LTG Duration achieved 07/01 Assessment Summary Assessment Pt did make progress throughout time w/PT and had improved balance and imrpoved back and leg pain along w/dec shoulder pain and neck pain. She was encouraged to pursue other modalities w/dx of fibromyalgia and has started OMT and acupuncture at this time and did not schedule further PT. Pt has not been seen for 2 months so DC at this time. POC is . Physical Therapy Plan Discharge Physical Therapy Discharge Reasons No Longer Attending PT
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
== END 2023-10-09 13:28 | disposition home or self-care (01) ==
LOC: PHYS 11:00
PROVIDERS: Family Provider Obstetrics & Gynecology; PCP Family Medicine; Referring Provider Family Medicine; Visit Provider Family Medicine
DX: M79.7 Fibromyalgia (principal); M25.511 Pain in right shoulder; G89.29 Other chronic pain; R53.1 Weakness; R29.3 Abnormal posture; R26.2 Difficulty in walking, not elsewhere classified; M79.652 Pain in left thigh
CPT/HCPCS: 95851; 97010; 97110; 97112; 97140; 97162; 97535; 97750

== ENCOUNTER → 2023-12-26 11:25 | Outpatient (CLI) | payer BC, SELFPAY ==
[2023-12-26 13:01] LABS: Add Manual Diff / Slide Review NO; Basophils Absolute Auto 0 /uL (0-100); Basophils Percent Auto 0.3 % (0-2); Eosinophils Absolute Auto 100 /uL (0-450); Eosinophils Percent Auto 1.8 % (2-4); Hematocrit 40.8 % (36-46); Hemoglobin 14.1 g/dL (12.0-16.0); Lymphocytes Absolute Auto 1700 /uL (1100-4500); Lymphocytes Percent Auto 24.6 % (25-40); Mean Corpuscular HGB Conc 34.6 % (30-36); Mean Corpuscular Hemoglobin 30.6 PG (26-34); Mean Corpuscular Volume 88.3 fL (80-100); Monocytes Absolute Auto 500 /uL (0-900); Monocytes Percent Auto 8.1 % (3-14); Neutrophils Absolute Auto 4400 /uL (1500-7000); Neutrophils Percent Auto 65.2 % (50-75); Platelet Count 360 X10^3/uL (150-400); Red Blood Cell Count 4.62 X10^6/uL (4.0-5.2); Red Cell Distribution Width 13.8 % (11.6-14.8); White Blood Cell Count 6.7 X10^3/uL (4.5-11.0)
[2023-12-26 13:04] LABS: Appearance Urine UA CLEAR; Bilirubin Urine UA NEGATIVE (NEGATIVE); Color Urine UA YELLOW; Glucose Urine UA NEGATIVE (Negative); Ketones Urine UA NEGATIVE (NEGATIVE); Leukocyte Esterase Urine UA NEGATIVE (NEGATIVE); Nitrite Urine UA NEGATIVE (Negative); Occult Blood Urine UA NEGATIVE (Negative); Protein Urine UA NEGATIVE (Negative); Urobilinogen Urine UA 0.2 E.U./dL (0.2); pH Urine UA 5.5 (4.5-8.0)
[2023-12-26 13:09] LABS: Urine Volume 10mL (spun)
[2023-12-26 13:10] LABS: Bacteria Urine None Seen; Culture Indicated Urine Cult Not Indicated; RBC Urine None Seen (0-5/HPF); Squamous Epithelial Cell Urine 1-5 /HPF (0-5/HPF); WBC Urine None Seen (0-5/HPF)
[2023-12-26 13:29] LABS: Alanine Aminotransferase 25 IU/L (<35); Albumin 4.6 g/dL (3.5-5.0); Albumin Globulin Ratio 1.4 (1.0-2.8); Alkaline Phosphatase 57 U/L (38-126); Aspartate Aminotransferase 22 IU/L (14-36); BUN Creatinine Ratio 19.4 (6-22); Bilirubin Total 0.6 mg/dL (0.2-1.3); Blood Urea Nitrogen 12 mg/dL (7-17); Calcium 9.3 mg/dL (8.4-10.2); Carbon Dioxide 28 mmol/L (22-32); Chloride 104 mmol/L (98-107); Estimated Glomerular Filt Rate > 60 mL/min (>60); Globulin 3.2 g/dL (1.7-4.1); Glucose 101 mg/dL (70-100); HEMOLYSIS < 15 (0-50); Sodium 138 mmol/L (137-145); Total Protein 7.8 g/dL (6.3-8.2)
[2023-12-26 13:59] LABS: TSH w/ Reflex to FT4 1.65 uIU/mL (0.47-4.68)
== END ==
PROVIDERS: Family Provider Obstetrics & Gynecology; PCP Family Medicine; Referring Provider Family Medicine; Visit Provider Family Medicine
DX: R73.03 Prediabetes (principal); E03.9 Hypothyroidism, unspecified; F41.9 Anxiety disorder, unspecified; F43.9 Reaction to severe stress, unspecified
CPT/HCPCS: 36415; 80053; 81001; 84443; 85025

== ENCOUNTER → 2024-06-22 14:12 | Outpatient (CLI) | payer BC, SELFPAY ==
--- NOTE | 2024-06-22 14:12 | DI.MG.S_ITS ---
BILATERAL DIGITAL SCREENING MAMMOGRAM 3D/2D WITH CAD: 06/22/2024 CLINICAL: Routine screening. Comparison is made to exams dated: 06/17/2023 mammogram - [facility], 06/13/2022 mammogram, 06/13/2021 mammogram, 04/24/2020 mammogram, and 11/01/2020 mammogram - outside location. Both breasts are heterogeneously dense, which may obscure small masses (category c / 51-75% glandular tissue). Current study was also evaluated with a Computer Aided Detection (CAD) system. No significant masses, calcifications, or other findings are seen in either breast. There has been no significant interval change. IMPRESSION: NEGATIVE There is no mammographic evidence of malignancy. A 1 year screening mammogram is recommended. Based on the Tyrer Cuzick model (a risk assessment model) the patient's lifetime risk is 14.2% and her 10 year risk is 5.6%. According to the ACR, ACS, and NCCN guidelines, an annual breast MRI exam along with mammogram is recommended if the patient's lifetime risk is 20% or greater. This exam was interpreted at Station ID: [id number]. NOTE: For mammograms, a report in lay terms will be sent to the patient. Approximately 15% of breast malignancies will not be visualized mammographically. In the management of a palpable breast mass, a negative mammogram must not discourage biopsy of a clinically suspicious lesion. Electronically Signed By: Rob niño/benjamin:06/22/2024 17:05:05 letter sent: Normal Exam ACR BI-RADS Category 1: Negative [id number]
== END ==
PROVIDERS: Family Provider Obstetrics & Gynecology; PCP Family Medicine; Referring Provider Family Medicine; Visit Provider Family Medicine
DX: Z12.31 Encounter for screening mammogram for malignant neoplasm of breast (principal); R92.333 Mammographic heterogeneous density, bilateral breasts
CPT/HCPCS: 77063; 77067

== ENCOUNTER → 2024-09-21 13:25 | Outpatient (CLI) | payer BC, SELFPAY | PROVIDERS: Family Provider Obstetrics & Gynecology; PCP Family Medicine; Referring Provider Family Medicine; Visit Provider Family Medicine | DX: R05.3 Chronic cough (principal); H69.93 Unspecified Eustachian tube disorder, bilateral; R94.2 Abnormal results of pulmonary function studies | CPT/HCPCS: 94060; 94726; 94729 ==

== ENCOUNTER → 2024-12-15 14:16 | Outpatient (CLI) | payer BC, SELFPAY ==
--- NOTE | 2024-12-15 14:17 | DI.US.S_ITS ---
PROCEDURE: US PELVIC COMPLETE INDICATIONS: ABN VAG BLEEDING TECHNIQUE: Real-time scanning was performed of the pelvic organs, with image documentation. Additional endovaginal scanning was necessary due to incomplete visualization of the adnexal and endometrial structures by transabdominal scanning. COMPARISON: None. FINDINGS: Uterus: Uterus is anteverted and normal in size at 8.3 x 5.1 x 6.4 cm. The myometrium is homogeneous. The endometrium measures 4.9 mm combined thickness. Ovaries: Ovaries not visualized due to overlying bowel gas. Other: No pathologic free abdominal or pelvic fluid. IMPRESSION: Endometrium measures 4.9 mm in thickness, at the high limits of normal in the setting of postmenopausal bleeding. Consider tissue sampling. We strive to produce accurate, complete, and clear reports of imaging services. To assist us in improving patient care, this report was composed using standard report templates and voice recognition software. Therefore, it may contain abnormal punctuation, insertions and/or omissions. Occasional wrong-word or sound-alike substitutions may occur. Though we review the report and make efforts to correct it, we do recommend that the report be read carefully in proper context to recognize any text inaccuracies. Dictated by: Richardson Nevarez M.D. on 12/15/2024 at 18:23 Approved by: Richardson Nevarez M.D. on 12/15/2024 at 18:24
== END ==
PROVIDERS: Family Provider Obstetrics & Gynecology; PCP Family Medicine; Referring Provider Nurse Practitioner; Visit Provider Nurse Practitioner
DX: N93.9 Abnormal uterine and vaginal bleeding, unspecified (principal)
CPT/HCPCS: 76830; 76856

== ENCOUNTER 2025-01-14 13:00 | Outpatient (RCR) | payer BC, OTHER, SELFPAY ==
--- NOTE | 2024-03-04 15:00 | PT.OIE ---
Current Diagnoses Unspecified Eustachian tube disorder, bilateral (03/04/24) Arthropathy of bilateral temporomandibular joint (03/04/24) Fibromyalgia (03/04/24) Past Medical History (Last Updated 10/08/23 @ 12:35 by Jami Hutchins CMA) Biceps tendinopathy of right upper extremity (01/25/22) Calcific tendinitis of right shoulder (08/13/21) Degenerative tear of glenoid labrum of right shoulder (12/04/21) Fibromyalgia Hyperlipidemia Prediabetes Tendinopathy of right rotator cuff (08/13/21) Past Surgical History (Last Reviewed 07/02/23 @ 18:34 by Monserrat Dong PA-C) Status post delivery Visit Care Team Role Provider Type Jenny Manzo MD Family Provider Physician Specialty: Gynecology THERAPIST PHYSICAL Obstetrics Address: [address] [place] [address], [id number] Email: [email or web address] Quang Webb MD Attending Provider Physician Primary Care Provider Referring Provider Specialty: Family Practice Address: [address] [place] [address], [id number] Email: [email or web address] Physical Therapy Initial Evaluation PT-OP-A Visit Information Start: 01/29/24 11:36 Freq: Status: Active Protocol: Document 03/04/24 10:40 [facility] (Rec: 03/04/24 13:48 [facility] [id number]) Out-Patient Physical Therapy Visit Information Visit Information Visit Type Initial Evaluation Visit Start Time 11:19 Visit Stop Time 12:05 Visit Number 1 Number of PERIOPERATIVE MANAGER Visits 0 PT-OP-B Current Condition Start: 01/29/24 11:36 Freq: Status: Active Protocol: Document 03/04/24 10:40 [facility] (Rec: 03/04/24 13:48 [facility] [id number]) Current Condition History of Current Condition Onset Date about 1.5 years pt thinks Current Complaints Jaw tension, neck pain, ear unable to clear History of Current Condition Pt has pressure where she can' t clear her ears. L has gotten better and R still can't clear. Eardrum looks normal, hearing normal, no fluid. ENT mentioned poking hole in eardrum . Going up/down hills/ elevation can't get R ear to clear and pressure just builds up. She does have B jaw tension. She has been told she may be a candidate for double jaw surgery. She went and saw a specialized doctor in [place]. She got a mouthguard for at night and has had it for 2 weeks and is not sure what she thinks of it. when she wears it,s he has to keep moving her jaw and has bite plates to reset her bite after . 1x/week she wears her old nightguard. She is waiting to do another sleep study. She is in a lot of stress currently and in December, she had a weird thing happen isashawn carrera felt like she wasn't really there. It was kind of how she felt after her covid vaccine. She started feeling worse and layed down where dizzy and nauseated. It got bad enough that she talked to her friend who was a nurse and 911 was called. Vitals were checked by EMT and told she was having a panic attack. She saw her primary the next day. Sometimes it feels like she is carrying so much overwhelm that it becomes beyond what her body can handle. She is seeing counselor. Has had head pressure when bends over also . She has had imaging of brain and nothing showed. Her head aches, but she doesn't have DANIEL often. She does have neck pain and sometimes when she wakes up, she can hardly move it. She is seeing a chiro which helps her neck but hasn' t changed the head pressure or the ear clearing. EKG has been done by EMT and looked normal. Pt reports L ankle occ feels difficulty w/down stairs and just feels tight down L leg. 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 Treatment Goals Patient/Caregiver Goals improve ear ability to clear, jaw tension PT-OP-C Subjective Start: 01/29/24 11:36 Freq: Status: Active Protocol: Document 03/04/24 10:40 [facility] (Rec: 03/04/24 13:48 [facility] [id number]) Patient Questionnaires Neck Disability Index NDI Score 50 OP-PT Pain Assessment Location R ear Pain Location Details R ear >l Description- Other pressure/inability to clear Other Pain Aggravating Factors bending over, elevation changes; rolling (sumersault) Pain Alleviating Factors None PT-OP-F Manual Assessment Start: 01/29/24 11:36 Freq: Status: Active Protocol: Document 03/04/24 10:40 [facility] (Rec: 03/04/24 13:48 [facility] [id number]) Manual Assessments Soft Tissue Assessment Soft Tissue Mobility Assessment tenderness and tightness throguhout neck and cranium Joint Mobility Assessment Joint Mobility Assessment ant shearing TMJ-occ clicking R>L; ant shearing L>R w/jaw opening; post shear R>L w/ closing PT-OP-J Posture/Palpation/Skin Start: 01/29/24 11:36 Freq: Status: Active Protocol: Document 03/04/24 10:40 [facility] (Rec: 03/04/24 13:48 [facility] [id number]) Posture Evaluation [facility] Postural Classification System [facility] Postural Classifications Posterior/Anterior Comments Posture Comments head R SB; R scap >L abd, L shoulder higher, fwd head, inc thoracic kyphosis PT-OP-K Range of Motion Start: 01/29/24 11:36 Freq: Status: Active Protocol: Document 03/04/24 10:40 [facility] (Rec: 03/04/24 13:48 [facility] [id number]) Cervical Spine Range of Motion Cervical Spine Active Degrees Flexion 59 Extension 40 Rotation Left 48 Rotation Right 49 Lateral Flexion Left 22 Lateral Flexion Right 38 Comments flex/ext & rot:makes feel icky but not quite dizzy/nausea THoracic rot:R 54; L50 feels crunching up on ribs TMJ Range of Motion Jaw Openning Jaw Openning (mm) 25 Comments Comments tight at end of range; less range w/R deviation but feels easier than L; jaw justine R PT-OP-L Special Tests Start: 01/29/24 11:36 Freq: Status: Active Protocol: Document 03/04/24 10:40 [facility] (Rec: 03/04/24 13:48 [facility] [id number]) Special Tests Cervical Spine Special Tests cranial n screen Test Results neg except some saccades noted w/smooth pursuit atlas/axis shear Test Results neg tectoral membrane Test Results neg arterial screening Test Results position screen neg Comments BP:168/68; ausciltation of carotid and heart WNL Alar Ligament Test Results neg spurling Test Results neg-just pressure Traction Test Results relief-dec pressure PT-OP-Q Treatments Start: 01/29/24 11:36 Freq: Status: Active Protocol: Document 03/04/24 10:40 [facility] (Rec: 03/04/24 13:48 [facility] [id number]) Self-Care/Home Management Treatment Education Other Education 8 min:discussion of connection of cervical and jaw and how that can affect ear. Discussed pt posture could be affecting upper cervical position too and importance of mobilization and movement through tspine. Discussed possible vestibular component PT-OP-T Assessment and Plan Start: 01/29/24 11:36 Freq: Status: Active Protocol: Document 03/04/24 10:40 [facility] (Rec: 03/04/24 13:48 [facility] [id number]) Physical Therapy Assessment Rehab Potential Rehabilitation Potential Good Evaluation Complexity Number of Personal Factors/Comorbidities 3 or More Number of Body Systems Impaired 4 or More Clinical Presentation at Evaluation Evolving Impairments Impairments Activity Tolerance,Functional Activities,Functional Mobility ,Pain,Posture,ROM,Soft Tissue Mobility,Strength Other Concerns Barriers to Rehabilitation inc stress and is responsible for care of her dgt without a lot of outside help Goals pain Shelter Goal (LTG) Pt will report a 75% decrease in feeling of head, neck and jaw tension in order to participate in daily life w/ less difficulty LTG Duration 88 ROM Short Term Goal (STG) pt will have at least 35 mm of opening of jaw w/o inc jaw tension STG Duration 7/5 Management Assistant Goal (LTG) Pt will have full cervical ROM w/o inc pain or feeling off LTG Duration 8 ear Shelter Goal (LTG) Pt will report dec ear tension and symptoms w/o inc discomfort when driving and changing elevations. LTG Duration 8 Assessment Summary Assessment Pt presents w/chronic R ear feeling of inability to clear that worsens w/elevation and pt gets inc in pressure and pain w/inability to clear. She has noted she always has had motion sickness and had inc head pressure w/bending over. She also gets inc head pressure w/activities like somersault since she was a kid so avoided these activties. These symptoms along w/c/o feeling off like just before would get dizzy/nauseated w/ some head movements but neg cranial n screen overall and arterial screen. Pt does have dx of fibromyalgia and has had sinus and head imaging along many other tests, which revealled no ear issues. She has had an inc in stress w/ personal concerns, which she understands may inc her pain. She is hoping PT will help as she prefers to avoid any sort of procedure. PT to focus on postural alignment of neck and jaw and head position in order to improve pt's ear symptoms along w/dec head/jaw/ neck tension. Physical Therapy Plan Frequency and Duration Frequency of Treatment 1-2x/wk Duration of treatment (weeks) 12 Plan of Care Start Date 03/04/24 Plan of Care End Date 05/27/24 Therapeutic Interventions Therapeutic Interventions Canalithic Repositioning,Home Exercise Program,Joint Mobilizations,Manual Therapy, Neuromuscular Re-education, Patient/Caregiver Education, Self-Care/Home Management,Soft Tissue Mobilization,Taping, Therapeutic Activities, Therapeutic Exercises, Vestibular Rehabilitation Modalities Cold Pack/Ice Massage,Electric Stimulation,Hot Packs, Infrared Therapy,Traction- Mechanical,Ultrasound Next Visit Focus/Plan Next Note Type Treatment Note Next Visit Plan work on cranium and upper cervical mobility and upper tspine mobility, chin tucks, open book, wall posture, B ER tband Check orthostatics (supine, sit, stand)
--- NOTE | 2024-03-04 15:00 | PT.OPPOC ---
Physical, Occupational & Speech Therapy At [facility] Current Diagnoses Unspecified Eustachian tube disorder, bilateral (03/04/24) Arthropathy of bilateral temporomandibular joint (03/04/24) Fibromyalgia (03/04/24) Visit Care Team Role Provider Type Jenny Manzo MD Family Provider Physician Specialty: Gynecology INDUSTRIAL HYGENIST Obstetrics Address: [address] [place] [address], [id number] Email: [email or web address] Quang Webb MD Attending Provider Physician Primary Care Provider Referring Provider Specialty: Family Practice Address: [address] [place] [address], [id number] Email: [email or web address] Plan Of Care PT-OP-T Assessment and Plan Start: 01/29/24 11:36 Freq: Status: Active Protocol: Document 03/04/24 10:40 [facility] (Rec: 03/04/24 13:48 [facility] [id number]) Physical Therapy Assessment Rehab Potential Rehabilitation Potential Good Evaluation Complexity Number of Personal Factors/Comorbidities 3 or More Number of Body Systems Impaired 4 or More Clinical Presentation at Evaluation Evolving Impairments Impairments Activity Tolerance,Functional Activities,Functional Mobility ,Pain,Posture,ROM,Soft Tissue Mobility,Strength Other Concerns Barriers to Rehabilitation inc stress and is responsible for care of her dgt without a lot of outside help Goals pain Social Security Specialist Goal (LTG) Pt will report a 75% decrease in feeling of head, neck and jaw tension in order to participate in daily life w/ less difficulty LTG Duration 8 ROM Short Term Goal (STG) pt will have at least 35 mm of opening of jaw w/o inc jaw tension STG Duration 7/ Social Security Specialist Goal (LTG) Pt will have full cervical ROM w/o inc pain or feeling off LTG Duration 8 ear Social Security Specialist Goal (LTG) Pt will report dec ear tension and symptoms w/o inc discomfort when driving and changing elevations. LTG Duration 05/27 Assessment Summary Assessment Pt presents w/chronic R ear feeling of inability to clear that worsens w/elevation and pt gets inc in pressure and pain w/inability to clear. She has noted she always has had motion sickness and had inc head pressure w/bending over. She also gets inc head pressure w/activities like somersault since she was a kid so avoided these activties. These symptoms along w/c/o feeling off like just before would get dizzy/nauseated w/ some head movements but neg cranial n screen overall and arterial screen. Pt does have dx of fibromyalgia and has had sinus and head imaging along many other tests, which revealled no ear issues. She has had an inc in stress w/ personal concerns, which she understands may inc her pain. She is hoping PT will help as she prefers to avoid any sort of procedure. PT to focus on postural alignment of neck and jaw and head position in order to improve pt's ear symptoms along w/dec head/jaw/ neck tension. Physical Therapy Plan Frequency and Duration Frequency of Treatment 1-2x/wk Duration of treatment (weeks) 12 Plan of Care Start Date 03/04/24 Plan of Care End Date 05/27/24 Therapeutic Interventions Therapeutic Interventions Canalithic Repositioning,Home Exercise Program,Joint Mobilizations,Manual Therapy, Neuromuscular Re-education, Patient/Caregiver Education, Self-Care/Home Management,Soft Tissue Mobilization,Taping, Therapeutic Activities, Therapeutic Exercises, Vestibular Rehabilitation Modalities Cold Pack/Ice Massage,Electric Stimulation,Hot Packs, Infrared Therapy,Traction- Mechanical,Ultrasound Next Visit Focus/Plan Next Note Type Treatment Note Next Visit Plan work on cranium and upper cervical mobility and upper tspine mobility, chin tucks, open book, wall posture, B ER tband Check orthostatics (supine, sit, stand) Plan of Care Dates Plan of Care Start Date 03/04/24 Plan of Care End Date 05/27/24 Electronically Signed by: China Aguirre, PT 03/04/24 1500 If you are in agreement with this Plan of Care, please return a signed and dated copy. I have reviewed this Plan of Care and certify that the skilled therapy services above are required to meet the patient?s needs. Physician Signature Date Printed Name and Credentials Clinical Instructor Signature Printed Name and Credentials
--- NOTE | 2024-03-12 09:45 | PT.OTN ---
Current Diagnoses Unspecified Eustachian tube disorder, bilateral (03/12/24) Arthropathy of bilateral temporomandibular joint (03/12/24) Fibromyalgia (03/12/24) Physical Therapy Treatment Note PT-OP-A Visit Information Start: 01/29/24 11:36 Freq: Status: Active Protocol: Document 03/12/24 09:06 [facility] (Rec: 03/12/24 09:49 [facility] [id number]) Out-Patient Physical Therapy Visit Information Visit Information Visit Type Treatment Note Visit Start Time 09:06 Visit Stop Time 09:45 Visit Number 2 Number of PROFESSIONAL EMPLOYER CONSULTANT Visits 1 PT-OP-B Current Condition Start: 01/29/24 11:36 Freq: Status: Active Protocol: Document 03/04/24 10:40 [facility] (Rec: 03/04/24 13:48 [facility] [id number]) Current Condition History of Current Condition Onset Date about 1.5 years pt thinks Current Complaints Jaw tension, neck pain, ear unable to clear History of Current Condition Pt has pressure where she can' t clear her ears. L has gotten better and R still can't clear. Eardrum looks normal, hearing normal, no fluid. ENT mentioned poking hole in eardrum . Going up/down hills/ elevation can't get R ear to clear and pressure just builds up. She does have B jaw tension. She has been told she may be a candidate for double jaw surgery. She went and saw a specialized doctor in [place]. She got a mouthguard for at night and has had it for 2 weeks and is not sure what she thinks of it. when she wears it,s he has to keep moving her jaw and has bite plates to reset her bite after . 1x/week she wears her old nightguard. She is waiting to do another sleep study. She is in a lot of stress currently and in December, she had a weird thing happen wehre [facility] felt like she wasn't really there. It was kind of how she felt after her covid vaccine. She started feeling worse and layed down where dizzy and nauseated. It got bad enough that she talked to her friend who was a nurse and 911 was called. Vitals were checked by EMT and told she was having a panic attack. She saw her primary the next day. Sometimes it feels like she is carrying so much overwhelm that it becomes beyond what her body can handle. She is seeing counselor. Has had head pressure when bends over also . She has had imaging of brain and nothing showed. Her head aches, but she doesn't have DANIEL often. She does have neck pain and sometimes when she wakes up, she can hardly move it. She is seeing a chiro which helps her neck but hasn' t changed the head pressure or the ear clearing. EKG has been done by EMT and looked normal. Pt reports L ankle occ feels difficulty w/down stairs and just feels tight down L leg. 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 Treatment Goals Patient/Caregiver Goals improve ear ability to clear, jaw tension PT-OP-C Subjective Start: 01/29/24 11:36 Freq: Status: Active Protocol: Document 03/12/24 09:06 [facility] (Rec: 03/12/24 09:49 [facility] [id number]) OP-PT Subjective Patient Comments Patient Comments Coming in with full feeling in R ear. Has mouth guard to support jaw positioning less than month. PT-OP-F Manual Assessment Start: 01/29/24 11:36 Freq: Status: Active Protocol: Document 03/04/24 10:40 [facility] (Rec: 03/04/24 13:48 [facility] [id number]) Manual Assessments Soft Tissue Assessment Soft Tissue Mobility Assessment tenderness and tightness throguhout neck and cranium Joint Mobility Assessment Joint Mobility Assessment ant shearing TMJ-occ clicking R>L; ant shearing L>R w/jaw opening; post shear R>L w/ closing PT-OP-J Posture/Palpation/Skin Start: 01/29/24 11:36 Freq: Status: Active Protocol: Document 03/04/24 10:40 [facility] (Rec: 03/04/24 13:48 [facility] [id number]) Posture Evaluation [place] Postural Classification System [place] Postural Classifications Posterior/Anterior Comments Posture Comments head R SB; R scap >L abd, L shoulder higher, fwd head, inc thoracic kyphosis PT-OP-K Range of Motion Start: 01/29/24 11:36 Freq: Status: Active Protocol: Document 03/04/24 10:40 [facility] (Rec: 03/04/24 13:48 [facility] [id number]) Cervical Spine Range of Motion Cervical Spine Active Degrees Flexion 59 Extension 40 Rotation Left 48 Rotation Right 49 Lateral Flexion Left 22 Lateral Flexion Right 38 Comments flex/ext & rot:makes feel icky but not quite dizzy/nausea THoracic rot:R 54; L50 feels crunching up on ribs TMJ Range of Motion Jaw Openning Jaw Openning (mm) 25 Comments Comments tight at end of range; less range w/R deviation but feels easier than L; jaw justine R PT-OP-L Special Tests Start: 01/29/24 11:36 Freq: Status: Active Protocol: Document 03/04/24 10:40 [facility] (Rec: 03/04/24 13:48 [facility] [id number]) Special Tests Cervical Spine Special Tests cranial n screen Test Results neg except some saccades noted w/smooth pursuit atlas/axis shear Test Results neg tectoral membrane Test Results neg arterial screening Test Results position screen neg Comments BP:168/68; ausciltation of carotid and heart WNL Alar Ligament Test Results neg spurling Test Results neg-just pressure Traction Test Results relief-dec pressure PT-OP-Q Treatments Start: 01/29/24 11:36 Freq: Status: Active Protocol: Document 03/12/24 09:06 [facility] (Rec: 03/12/24 09:49 SP [id number]) Therapeutic Exercises Sitting Exercises jaw Sitting Exercise Name tongue roof mouth, open close, resistance Equipment Used use mirror jaw midline alignment Comments cued relaxed face Standing Exercises wall posture Standing Exercise Name wall posture, TA LS toward wall, neutral CS, arms anatomical pos Reps/Minutes 3 x 10 SH Comments cued for postural awareness, tends have head forward Manual Therapy Treatment Soft Tissue Mobilization neck Body Location SOR, suboccipitals, UT, SCM, jaw Body Location B masseter, med pterygoid Body Position Hooklying Comments external and intraoral light pressure with feedback of pt, more tender on R>L head Body Location B cranium fascia, temporalis, gentle ear pull PT-OP-T Assessment and Plan Start: 01/29/24 11:36 Freq: Status: Active Protocol: Document 03/12/24 09:06 SP (Rec: 03/12/24 09:49 SP [id number]) Physical Therapy Assessment Goals pain Scheduling Representative Goal (LTG) Pt will report a 75% decrease in feeling of head, neck and jaw tension in order to participate in daily life w/ less difficulty LTG Duration 05/27 ROM Short Term Goal (STG) pt will have at least 35 mm of opening of jaw w/o inc jaw tension STG Duration 04/23 Scheduling Representative Goal (LTG) Pt will have full cervical ROM w/o inc pain or feeling off LTG Duration 05/27 ear Mcc Goal (LTG) Pt will report dec ear tension and symptoms w/o inc discomfort when driving and changing elevations. LTG Duration 05/27 Assessment Summary Assessment Pt good response to gentle manual with ed self , tender R medial pterygoid >L, reduction pressure with feedback. Improved decrease R mandible deviation, use mirror for positioning tongue, relaxed face self awareness corrections jaw alignment. Physical Therapy Plan Frequency and Duration Frequency of Treatment 1-2x/wk Duration of treatment (weeks) 12 Plan of Care Start Date 03/04/24 Plan of Care End Date 05/27/24 Therapeutic Interventions Therapeutic Interventions Canalithic Repositioning,Home Exercise Program,Joint Mobilizations,Manual Therapy, Neuromuscular Re-education, Patient/Caregiver Education, Self-Care/Home Management,Soft Tissue Mobilization,Taping, Therapeutic Activities, Therapeutic Exercises, Vestibular Rehabilitation Modalities Cold Pack/Ice Massage,Electric Stimulation,Hot Packs, Infrared Therapy,Traction- Mechanical,Ultrasound Next Visit Focus/Plan Next Note Type Treatment Note Next Visit Plan Check response manual and intitalted jaw and posture. POC: work on cranium and upper cervical mobility and upper tspine mobility, chin tucks, open book, wall posture, B ER tband Check orthostatics (supine, sit, stand)
--- NOTE | 2024-03-16 15:18 | PT.OTN ---
Current Diagnoses Unspecified Eustachian tube disorder, bilateral (03/16/24) Arthropathy of bilateral temporomandibular joint (03/16/24) Fibromyalgia (03/16/24) Physical Therapy Treatment Note PT-OP-A Visit Information Start: 01/29/24 11:36 Freq: Status: Active Protocol: Document 03/16/24 13:03 [facility] (Rec: 03/16/24 15:18 [facility] [id number]) Out-Patient Physical Therapy Visit Information Visit Information Visit Type Treatment Note Visit Start Time 13:04 Visit Stop Time 13:54 Visit Number 3 Number of SPORTS EDITOR Visits 0 PT-OP-B Current Condition Start: 01/29/24 11:36 Freq: Status: Active Protocol: Document 03/04/24 10:40 [facility] (Rec: 03/04/24 13:48 [facility] [id number]) Current Condition History of Current Condition Onset Date about 1.5 years pt thinks Current Complaints Jaw tension, neck pain, ear unable to clear History of Current Condition Pt has pressure where she can' t clear her ears. L has gotten better and R still can't clear. Eardrum looks normal, hearing normal, no fluid. ENT mentioned poking hole in eardrum . Going up/down hills/ elevation can't get R ear to clear and pressure just builds up. She does have B jaw tension. She has been told she may be a candidate for double jaw surgery. She went and saw a specialized doctor in [place]. She got a mouthguard for at night and has had it for 2 weeks and is not sure what she thinks of it. when she wears it,s he has to keep moving her jaw and has bite plates to reset her bite after . 1x/week she wears her old nightguard. She is waiting to do another sleep study. She is in a lot of stress currently and in December, she had a weird thing happen [facility] felt like she wasn't really there. It was kind of how she felt after her covid vaccine. She started feeling worse and layed down where dizzy and nauseated. It got bad enough that she talked to her friend who was a nurse and 911 was called. Vitals were checked by EMT and told she was having a panic attack. She saw her primary the next day. Sometimes it feels like she is carrying so much overwhelm that it becomes beyond what her body can handle. She is seeing counselor. Has had head pressure when bends over also . She has had imaging of brain and nothing showed. Her head aches, but she doesn't have DANIEL often. She does have neck pain and sometimes when she wakes up, she can hardly move it. She is seeing a chiro which helps her neck but hasn' t changed the head pressure or the ear clearing. EKG has been done by EMT and looked normal. Pt reports L ankle occ feels difficulty w/down stairs and just feels tight down L leg. 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 Treatment Goals Patient/Caregiver Goals improve ear ability to clear, jaw tension PT-OP-C Subjective Start: 01/29/24 11:36 Freq: Status: Active Protocol: Document 03/16/24 13:03 [facility] (Rec: 03/16/24 15:18 [facility] [id number]) OP-PT Subjective Patient Comments Patient Comments Pt reports she felt like the manual work was good last time . She was worried it would make her sore but it didn't. had questions about her exercises PT-OP-F Manual Assessment Start: 01/29/24 11:36 Freq: Status: Active Protocol: Document 03/04/24 10:40 [facility] (Rec: 03/04/24 13:48 [facility] [id number]) Manual Assessments Soft Tissue Assessment Soft Tissue Mobility Assessment tenderness and tightness throguhout neck and cranium Joint Mobility Assessment Joint Mobility Assessment ant shearing TMJ-occ clicking R>L; ant shearing L>R w/jaw opening; post shear R>L w/ closing PT-OP-J Posture/Palpation/Skin Start: 01/29/24 11:36 Freq: Status: Active Protocol: Document 03/04/24 10:40 [facility] (Rec: 03/04/24 13:48 [facility] [id number]) Posture Evaluation Roldan Postural Classification System Roldan Postural Classifications Posterior/Anterior Comments Posture Comments head R SB; R scap >L abd, L shoulder higher, fwd head, inc thoracic kyphosis PT-OP-K Range of Motion Start: 01/29/24 11:36 Freq: Status: Active Protocol: Document 03/04/24 10:40 [facility] (Rec: 03/04/24 13:48 [facility] [id number]) Cervical Spine Range of Motion Cervical Spine Active Degrees Flexion 59 Extension 40 Rotation Left 48 Rotation Right 49 Lateral Flexion Left 22 Lateral Flexion Right 38 Comments flex/ext & rot:makes feel icky but not quite dizzy/nausea THoracic rot:R 54; L50 feels crunching up on ribs TMJ Range of Motion Jaw Openning Jaw Openning (mm) 25 Comments Comments tight at end of range; less range w/R deviation but feels easier than L; jaw justine R PT-OP-L Special Tests Start: 01/29/24 11:36 Freq: Status: Active Protocol: Document 03/04/24 10:40 [facility] (Rec: 03/04/24 13:48 [facility] [id number]) Special Tests Cervical Spine Special Tests cranial n screen Test Results neg except some saccades noted w/smooth pursuit atlas/axis shear Test Results neg tectoral membrane Test Results neg arterial screening Test Results position screen neg Comments BP:168/68; ausciltation of carotid and heart WNL Alar Ligament Test Results neg spurling Test Results neg-just pressure Traction Test Results relief-dec pressure PT-OP-Q Treatments Start: 01/29/24 11:36 Freq: Status: Active Protocol: Document 03/16/24 13:03 [facility] (Rec: 03/16/24 15:18 [facility] [id number]) Therapeutic Exercises Sidelying Exercises open book Sidelying Exercise Name cues for arm position Side bilateral Reps/Minutes 8 Sitting Exercises tongue Sitting Exercise Name suction to top of mouth Reps/Minutes 10 sec x8 jaw Sitting Exercise Name open close mouth w/tongue at rogue Equipment Used use mirror jaw midline alignment Reps/Minutes 8 Standing Exercises wall posture Standing Exercise Name knees bent focus on lumbar and tspine on wall, head into towel Equipment Used towel behind head Reps/Minutes 3 x 10 SH Comments inc time for set up Manual Therapy Treatment Soft Tissue Mobilization neck Body Location SOR, suboccipitals, UT, SCM Mobilization Type Rolling head Body Location B cranium fascia, temporalis Mobilization Type Sustained Pressure Intensity/Depth Superficial Joint Mobilizations thoracic Comments seated T1-3 PA FM PA T8-9 FM prone PT-OP-R Modalities Start: 01/29/24 11:36 Freq: Status: Active Protocol: Document 03/16/24 13:03 [facility] (Rec: 03/16/24 15:18 [facility] [id number]) Hot Pack/Cold Pack Treatment Hot Pack Location thoracic and cervical Patient Position Hooklying PT-OP-T Assessment and Plan Start: 01/29/24 11:36 Freq: Status: Active Protocol: Document 03/16/24 13:03 [facility] (Rec: 03/16/24 15:18 [facility] [id number]) Physical Therapy Assessment Goals pain Snowboard Designer Goal (LTG) Pt will report a 75% decrease in feeling of head, neck and jaw tension in order to participate in daily life w/ less difficulty LTG Duration 8 ROM Short Term Goal (STG) pt will have at least 35 mm of opening of jaw w/o inc jaw tension STG Duration 7 Prison Goal (LTG) Pt will have full cervical ROM w/o inc pain or feeling off LTG Duration 8 ear Prison Goal (LTG) Pt will report dec ear tension and symptoms w/o inc discomfort when driving and changing elevations. LTG Duration 05/27 Assessment Summary Assessment Pt tolerated manual well and noted feeling pull into R ear w/R cranial fasical work. She required cues for all exercises today and did show signficant thoracic restrictions Physical Therapy Plan Next Visit Focus/Plan Next Note Type Treatment Note Next Visit Plan Slowly advance mobility and postural exercises. POC: work on cranium and upper cervical mobility and upper tspine mobility, chin tucks, open book, wall posture, B ER tband Check orthostatics (supine, sit, stand)
--- NOTE | 2024-03-18 15:18 | PT.OTN ---
Current Diagnoses Unspecified Eustachian tube disorder, bilateral (03/18/24) Arthropathy of bilateral temporomandibular joint (03/18/24) Fibromyalgia (03/18/24) Physical Therapy Treatment Note PT-OP-A Visit Information Start: 01/29/24 11:36 Freq: Status: Active Protocol: Document 03/18/24 14:35 [facility] (Rec: 03/18/24 15:37 SP [id number]) Out-Patient Physical Therapy Visit Information Visit Information Visit Type Treatment Note Visit Start Time 14:35 Visit Stop Time 15:18 Visit Number 4 Number of PARQUETRY LAYER Visits 1 PT-OP-B Current Condition Start: 01/29/24 11:36 Freq: Status: Active Protocol: Document 03/04/24 10:40 [facility] (Rec: 03/04/24 13:48 [facility] [id number]) Current Condition History of Current Condition Onset Date about 1.5 years pt thinks Current Complaints Jaw tension, neck pain, ear unable to clear History of Current Condition Pt has pressure where she can' t clear her ears. L has gotten better and R still can't clear. Eardrum looks normal, hearing normal, no fluid. ENT mentioned poking hole in eardrum . Going up/down hills/ elevation can't get R ear to clear and pressure just builds up. She does have B jaw tension. She has been told she may be a candidate for double jaw surgery. She went and saw a specialized doctor in [place]. She got a mouthguard for at night and has had it for 2 weeks and is not sure what she thinks of it. when she wears it,s he has to keep moving her jaw and has bite plates to reset her bite after . 1x/week she wears her old nightguard. She is waiting to do another sleep study. She is in a lot of stress currently and in December, she had a weird thing happen [place] [place] felt like she wasn't really there. It was kind of how she felt after her covid vaccine. She started feeling worse and layed down where dizzy and nauseated. It got bad enough that she talked to her friend who was a nurse and 911 was called. Vitals were checked by EMT and told she was having a panic attack. She saw her primary the next day. Sometimes it feels like she is carrying so much overwhelm that it becomes beyond what her body can handle. She is seeing counselor. Has had head pressure when bends over also . She has had imaging of brain and nothing showed. Her head aches, but she doesn't have DANIEL often. She does have neck pain and sometimes when she wakes up, she can hardly move it. She is seeing a chiro which helps her neck but hasn' t changed the head pressure or the ear clearing. EKG has been done by EMT and looked normal. Pt reports L ankle occ feels difficulty w/down stairs and just feels tight down L leg. 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 Treatment Goals Patient/Caregiver Goals improve ear ability to clear, jaw tension PT-OP-C Subjective Start: 01/29/24 11:36 Freq: Status: Active Protocol: Document 03/18/24 14:35 [facility] (Rec: 03/18/24 15:37 [facility] [id number]) OP-PT Subjective Patient Comments Patient Comments Pt reports manual very helpful with tension reduction. The TMJ 2 tx ago. Has been driving around [place] today, want focus on head, ears, under jaw and posterolateral neck and mid back down post legs tension. PT-OP-F Manual Assessment Start: 01/29/24 11:36 Freq: Status: Active Protocol: Document 03/04/24 10:40 [facility] (Rec: 03/04/24 13:48 [facility] [id number]) Manual Assessments Soft Tissue Assessment Soft Tissue Mobility Assessment tenderness and tightness throguhout neck and cranium Joint Mobility Assessment Joint Mobility Assessment ant shearing TMJ-occ clicking R>L; ant shearing L>R w/jaw opening; post shear R>L w/ closing PT-OP-J Posture/Palpation/Skin Start: 01/29/24 11:36 Freq: Status: Active Protocol: Document 03/04/24 10:40 [facility] (Rec: 03/04/24 13:48 [facility] [id number]) Posture Evaluation Roldan Postural Classification System Roldan Postural Classifications Posterior/Anterior Comments Posture Comments head R SB; R scap >L abd, L shoulder higher, fwd head, inc thoracic kyphosis PT-OP-K Range of Motion Start: 01/29/24 11:36 Freq: Status: Active Protocol: Document 03/04/24 10:40 [facility] (Rec: 03/04/24 13:48 [facility] [id number]) Cervical Spine Range of Motion Cervical Spine Active Degrees Flexion 59 Extension 40 Rotation Left 48 Rotation Right 49 Lateral Flexion Left 22 Lateral Flexion Right 38 Comments flex/ext & rot:makes feel icky but not quite dizzy/nausea THoracic rot:R 54; L50 feels crunching up on ribs TMJ Range of Motion Jaw Openning Jaw Openning (mm) 25 Comments Comments tight at end of range; less range w/R deviation but feels easier than L; jaw justine R PT-OP-L Special Tests Start: 01/29/24 11:36 Freq: Status: Active Protocol: Document 03/04/24 10:40 [facility] (Rec: 03/04/24 13:48 [facility] [id number]) Special Tests Cervical Spine Special Tests cranial n screen Test Results neg except some saccades noted w/smooth pursuit atlas/axis shear Test Results neg tectoral membrane Test Results neg arterial screening Test Results position screen neg Comments BP:168/68; ausciltation of carotid and heart WNL Alar Ligament Test Results neg spurling Test Results neg-just pressure Traction Test Results relief-dec pressure PT-OP-Q Treatments Start: 01/29/24 11:36 Freq: Status: Active Protocol: Document 03/18/24 14:35 SP (Rec: 03/18/24 15:37 SP [id number]) Therapeutic Exercises Supine Exercises bridge Supine Exercise Name post manual spinal reset Reps/Minutes 1 Comments improved posterior chain mobility reported Sidelying Exercises open book Sidelying Exercise Name cues for arm position Side bilateral Equipment Used post manual Reps/Minutes 8 Comments pause x1 for pec stretch /c breath R>L Sitting Exercises Shld ER Sitting Exercise Name intiated in PT (recheck next, give if need HO) Side bilateral Resistance TB #1 (provided band, declined HO) Reps/Minutes 5 SH x10 Comments scapular retraction and humeral ER, cued elongated tall posture/head nod tongue Sitting Exercise Name suction to top of mouth Reps/Minutes 10 sec x8 jaw Sitting Exercise Name open close mouth w/tongue at rogue Equipment Used use mirror jaw midline alignment Reps/Minutes 8 Manual Therapy Treatment Soft Tissue Mobilization neck Body Location SOR, suboccipitals, UT, SCM Mobilization Type Rolling head Body Location B cranium fascia, temporalis Mobilization Type Sustained Pressure Intensity/Depth Superficial Joint Mobilizations thoracic Comments PA T8-9 FM prone Diaphragm, psoas and iliacus- supine /c breath PT-OP-R Modalities Start: 01/29/24 11:36 Freq: Status: Active Protocol: Document 03/16/24 13:03 [facility] (Rec: 03/16/24 15:18 [facility] [id number]) Hot Pack/Cold Pack Treatment Hot Pack Location thoracic and cervical Patient Position Hooklying PT-OP-T Assessment and Plan Start: 01/29/24 11:36 Freq: Status: Active Protocol: Document 03/18/24 14:35 SP (Rec: 03/18/24 15:37 SP [id number]) Physical Therapy Assessment Goals pain Detention Goal (LTG) Pt will report a 75% decrease in feeling of head, neck and jaw tension in order to participate in daily life w/ less difficulty LTG Duration 8/8 ROM Short Term Goal (STG) pt will have at least 35 mm of opening of jaw w/o inc jaw tension STG Duration 7/5 Detention Goal (LTG) Pt will have full cervical ROM w/o inc pain or feeling off LTG Duration 88 ear Detention Goal (LTG) Pt will report dec ear tension and symptoms w/o inc discomfort when driving and changing elevations. LTG Duration 8 Assessment Summary Assessment Pt good response to manual, reduced tension inferior mandible and mid back. Cues for arm positioning and pause pec stretch /c breath for progress thoracic mobility. Initiated progression head/ neck/upper trunk alignment with resisted scapretraction/ humeral ER with no adverse affects, cued CS nod flexion neutral with tongue on roof mouth reduction jaw tension, with reports no pain and improved corrections with ed. Physical Therapy Plan Frequency and Duration Frequency of Treatment 1-2x/wk Duration of treatment (weeks) 12 Plan of Care Start Date 03/04/24 Plan of Care End Date 05/27/24 Therapeutic Interventions Therapeutic Interventions Canalithic Repositioning,Home Exercise Program,Joint Mobilizations,Manual Therapy, Neuromuscular Re-education, Patient/Caregiver Education, Self-Care/Home Management,Soft Tissue Mobilization,Taping, Therapeutic Activities, Therapeutic Exercises, Vestibular Rehabilitation Modalities Cold Pack/Ice Massage,Electric Stimulation,Hot Packs, Infrared Therapy,Traction- Mechanical,Ultrasound Next Visit Focus/Plan Next Note Type Treatment Note Next Visit Plan Recheck HEP, Slowly advance mobility and postural exercises, recheck resisted resisted humeral ER/scap retraction /c head/cervical/ jaw alignment. POC: work on cranium and upper cervical mobility and upper tspine mobility, chin tucks Check orthostatics (supine, sit, stand)
--- NOTE | 2024-03-24 13:48 | PT.OTN ---
Addendum entered and electronically signed by Nita Read, LUCY 03/24/24 16:05: Discussed add more appts and waiting list for gap in appts 03/24 to 04/27. Original Note: Current Diagnoses Unspecified Eustachian tube disorder, bilateral (03/24/24) Arthropathy of bilateral temporomandibular joint (03/24/24) Fibromyalgia (03/24/24) Physical Therapy Treatment Note PT-OP-A Visit Information Start: 01/29/24 11:36 Freq: Status: Active Protocol: Document 03/24/24 13:11 SP (Rec: 03/24/24 13:51 SP [id number]) Out-Patient Physical Therapy Visit Information Visit Information Visit Type Treatment Note Visit Start Time 13:02 Visit Stop Time 13:48 Visit Number 5 Number of AUTOMOTIVE SERVICE TECHNICIAN Visits 2 PT-OP-B Current Condition Start: 01/29/24 11:36 Freq: Status: Active Protocol: Document 03/04/24 10:40 [facility] (Rec: 03/04/24 13:48 [facility] [id number]) Current Condition History of Current Condition Onset Date about 1.5 years pt thinks Current Complaints Jaw tension, neck pain, ear unable to clear History of Current Condition Pt has pressure where she can' t clear her ears. L has gotten better and R still can't clear. Eardrum looks normal, hearing normal, no fluid. ENT mentioned poking hole in eardrum . Going up/down hills/ elevation can't get R ear to clear and pressure just builds up. She does have B jaw tension. She has been told she may be a candidate for double jaw surgery. She went and saw a specialized doctor in [place]. She got a mouthguard for at night and has had it for 2 weeks and is not sure what she thinks of it. when she wears it,s he has to keep moving her jaw and has bite plates to reset her bite after . 1x/week she wears her old nightguard. She is waiting to do another sleep study. She is in a lot of stress currently and in December, she had a weird thing happen [facility] felt like she wasn't really there. It was kind of how she felt after her covid vaccine. She started feeling worse and layed down where dizzy and nauseated. It got bad enough that she talked to her friend who was a nurse and 911 was called. Vitals were checked by EMT and told she was having a panic attack. She saw her primary the next day. Sometimes it feels like she is carrying so much overwhelm that it becomes beyond what her body can handle. She is seeing counselor. Has had head pressure when bends over also . She has had imaging of brain and nothing showed. Her head aches, but she doesn't have DANIEL often. She does have neck pain and sometimes when she wakes up, she can hardly move it. She is seeing a chiro which helps her neck but hasn' t changed the head pressure or the ear clearing. EKG has been done by EMT and looked normal. Pt reports L ankle occ feels difficulty w/down stairs and just feels tight down L leg. 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 Treatment Goals Patient/Caregiver Goals improve ear ability to clear, jaw tension PT-OP-C Subjective Start: 01/29/24 11:36 Freq: Status: Active Protocol: Document 03/24/24 13:11 SP (Rec: 03/24/24 13:51 SP [id number]) OP-PT Subjective Patient Comments Patient Comments Pt reports felt good after last tx. Compliant with HEP. jaw 34cm arrival clunk on R when opening end range. Overall tension TMJ. PT-OP-F Manual Assessment Start: 01/29/24 11:36 Freq: Status: Active Protocol: Document 03/04/24 10:40 [facility] (Rec: 03/04/24 13:48 [facility] [id number]) Manual Assessments Soft Tissue Assessment Soft Tissue Mobility Assessment tenderness and tightness throguhout neck and cranium Joint Mobility Assessment Joint Mobility Assessment ant shearing TMJ-occ clicking R>L; ant shearing L>R w/jaw opening; post shear R>L w/ closing PT-OP-J Posture/Palpation/Skin Start: 01/29/24 11:36 Freq: Status: Active Protocol: Document 03/04/24 10:40 [facility] (Rec: 03/04/24 13:48 [facility] [id number]) Posture Evaluation Roldan Postural Classification System Roldan Postural Classifications Posterior/Anterior Comments Posture Comments head R SB; R scap >L abd, L shoulder higher, fwd head, inc thoracic kyphosis PT-OP-K Range of Motion Start: 01/29/24 11:36 Freq: Status: Active Protocol: Document 03/04/24 10:40 [facility] (Rec: 03/04/24 13:48 [facility] [id number]) Cervical Spine Range of Motion Cervical Spine Active Degrees Flexion 59 Extension 40 Rotation Left 48 Rotation Right 49 Lateral Flexion Left 22 Lateral Flexion Right 38 Comments flex/ext & rot:makes feel icky but not quite dizzy/nausea THoracic rot:R 54; L50 feels crunching up on ribs TMJ Range of Motion Jaw Openning Jaw Openning (mm) 25 Comments Comments tight at end of range; less range w/R deviation but feels easier than L; jaw justine R PT-OP-L Special Tests Start: 01/29/24 11:36 Freq: Status: Active Protocol: Document 03/04/24 10:40 [facility] (Rec: 03/04/24 13:48 [facility] [id number]) Special Tests Cervical Spine Special Tests cranial n screen Test Results neg except some saccades noted w/smooth pursuit atlas/axis shear Test Results neg tectoral membrane Test Results neg arterial screening Test Results position screen neg Comments BP:168/68; ausciltation of carotid and heart WNL Alar Ligament Test Results neg spurling Test Results neg-just pressure Traction Test Results relief-dec pressure PT-OP-Q Treatments Start: 01/29/24 11:36 Freq: Status: Active Protocol: Document 03/24/24 13:11 SP (Rec: 03/24/24 13:51 SP [id number]) Therapeutic Exercises Sitting Exercises Shld ER Sitting Exercise Name added to PT (declined HO) Side bilateral Resistance TB #1 Reps/Minutes 5 SH x10 Comments scapular retraction and humeral ER, cued elongated tall posture/head nod tongue Sitting Exercise Name suction to top of mouth Reps/Minutes 10 sec x8 jaw Sitting Exercise Name open close mouth w/tongue at rogue Equipment Used use mirror jaw midline alignment Reps/Minutes 8 Comments added pressure inferiorly for strengthening Standing Exercises wall posture Standing Exercise Name knees bent focus on lumbar and tspine on wall, head into towel Equipment Used towel behind head Reps/Minutes 3 x 10 SH Manual Therapy Treatment Soft Tissue Mobilization neck Body Location SOR, suboccipitals, UT, SCM Mobilization Type Rolling,Sustained Pressure, Other Intensity/Depth Moderate Body Position Hooklying Comments cued breath, STMs and MWM nods small range jaw Body Location B masseter, R med pterygoid, R digastric Mobilization Type Rolling,Sustained Pressure, Other Intensity/Depth Moderate Body Position Hooklying Comments external moderate with pt giving feedback pressure from pt, more tender on R>L, head Body Location B cranium fascia, temporalis, ear pull Mobilization Type Sustained Pressure Intensity/Depth Superficial Comments good feedback reduction tension PT-OP-R Modalities Start: 01/29/24 11:36 Freq: Status: Active Protocol: Document 03/16/24 13:03 [facility] (Rec: 03/16/24 15:18 [facility] [id number]) Hot Pack/Cold Pack Treatment Hot Pack Location thoracic and cervical Patient Position Hooklying PT-OP-T Assessment and Plan Start: 01/29/24 11:36 Freq: Status: Active Protocol: Document 03/24/24 13:11 SP (Rec: 03/24/24 13:51 SP [id number]) Physical Therapy Assessment Goals pain Hematology Nurse Educator Goal (LTG) Pt will report a 75% decrease in feeling of head, neck and jaw tension in order to participate in daily life w/ less difficulty LTG Duration 05/27 ROM Short Term Goal (STG) pt will have at least 35 mm of opening of jaw w/o inc jaw tension 03/24/24: jaw 34cm arrival, not pain but feel clunk on R. STG Duration 04/23 progressing 03/24 Residential Goal (LTG) Pt will have full cervical ROM w/o inc pain or feeling off LTG Duration 05/27 ear Hematology Nurse Educator Goal (LTG) Pt will report dec ear tension and symptoms w/o inc discomfort when driving and changing elevations. LTG Duration 05/27 Assessment Summary Assessment Pt jaw opening 35cm, 1 cm wider by end of tx. Reviewed jaw exercises in mirror post manual with added pressure, noted increased clicking when wide opening on R, slight reduction with added pressure inferiorly to R condyle. Physical Therapy Plan Frequency and Duration Frequency of Treatment 1-2x/wk Duration of treatment (weeks) 12 Plan of Care Start Date 03/04/24 Plan of Care End Date 05/27/24 Therapeutic Interventions Therapeutic Interventions Canalithic Repositioning,Home Exercise Program,Joint Mobilizations,Manual Therapy, Neuromuscular Re-education, Patient/Caregiver Education, Self-Care/Home Management,Soft Tissue Mobilization,Taping, Therapeutic Activities, Therapeutic Exercises, Vestibular Rehabilitation Modalities Cold Pack/Ice Massage,Electric Stimulation,Hot Packs, Infrared Therapy,Traction- Mechanical,Ultrasound Next Visit Focus/Plan Next Note Type Treatment Note Next Visit Plan Recheck HEP, Slowly advance mobility and postural exercises, recheck resisted resisted humeral ER/scap retraction /c head/cervical/ jaw alignment. POC: work on cranium and upper cervical mobility and upper tspine mobility, chin tucks Check orthostatics (supine, sit, stand)
--- NOTE | 2024-04-01 15:31 | PT.OTN ---
Current Diagnoses Unspecified Eustachian tube disorder, bilateral (04/01/24) Arthropathy of bilateral temporomandibular joint (04/01/24) Fibromyalgia (04/01/24) Physical Therapy Treatment Note PT-OP-A Visit Information Start: 01/29/24 11:36 Freq: Status: Active Protocol: Document 04/01/24 14:36 [facility] (Rec: 04/01/24 15:31 [facility] [id number]) Out-Patient Physical Therapy Visit Information Visit Information Visit Type Treatment Note Visit Start Time 14:36 Visit Stop Time 15:25 Visit Number 6 Number of ENGINE MANAGER Visits 0 PT-OP-B Current Condition Start: 01/29/24 11:36 Freq: Status: Active Protocol: Document 03/04/24 10:40 [facility] (Rec: 03/04/24 13:48 [facility] [id number]) Current Condition History of Current Condition Onset Date about 1.5 years pt thinks Current Complaints Jaw tension, neck pain, ear unable to clear History of Current Condition Pt has pressure where she can' t clear her ears. L has gotten better and R still can't clear. Eardrum looks normal, hearing normal, no fluid. ENT mentioned poking hole in eardrum . Going up/down hills/ elevation can't get R ear to clear and pressure just builds up. She does have B jaw tension. She has been told she may be a candidate for double jaw surgery. She went and saw a specialized doctor in [place]. She got a mouthguard for at night and has had it for 2 weeks and is not sure what she thinks of it. when she wears it,s he has to keep moving her jaw and has bite plates to reset her bite after . 1x/week she wears her old nightguard. She is waiting to do another sleep study. She is in a lot of stress currently and in December, she had a weird thing happen [facility] felt like she wasn't really there. It was kind of how she felt after her covid vaccine. She started feeling worse and layed down where dizzy and nauseated. It got bad enough that she talked to her friend who was a nurse and 911 was called. Vitals were checked by EMT and told she was having a panic attack. She saw her primary the next day. Sometimes it feels like she is carrying so much overwhelm that it becomes beyond what her body can handle. She is seeing counselor. Has had head pressure when bends over also . She has had imaging of brain and nothing showed. Her head aches, but she doesn't have DANIEL often. She does have neck pain and sometimes when she wakes up, she can hardly move it. She is seeing a chiro which helps her neck but hasn' t changed the head pressure or the ear clearing. EKG has been done by EMT and looked normal. Pt reports L ankle occ feels difficulty w/down stairs and just feels tight down L leg. 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 Treatment Goals Patient/Caregiver Goals improve ear ability to clear, jaw tension PT-OP-C Subjective Start: 01/29/24 11:36 Freq: Status: Active Protocol: Document 04/01/24 14:36 [facility] (Rec: 04/01/24 15:31 [facility] [id number]) OP-PT Subjective Patient Comments Patient Comments yesterday fell in parking lot as she was backing up and stepped into her wine bags and fell down to side. She feels kind of donald overall today. She did take bath w/epson salts to try to help. Feels like after doing the work, she feels closer to getting ear to clear, but then it comes back PT-OP-F Manual Assessment Start: 01/29/24 11:36 Freq: Status: Active Protocol: Document 03/04/24 10:40 [facility] (Rec: 03/04/24 13:48 [facility] [id number]) Manual Assessments Soft Tissue Assessment Soft Tissue Mobility Assessment tenderness and tightness throguhout neck and cranium Joint Mobility Assessment Joint Mobility Assessment ant shearing TMJ-occ clicking R>L; ant shearing L>R w/jaw opening; post shear R>L w/ closing PT-OP-J Posture/Palpation/Skin Start: 01/29/24 11:36 Freq: Status: Active Protocol: Document 03/04/24 10:40 [facility] (Rec: 03/04/24 13:48 [facility] [id number]) Posture Evaluation Roldan Postural Classification System Roldan Postural Classifications Posterior/Anterior Comments Posture Comments head R SB; R scap >L abd, L shoulder higher, fwd head, inc thoracic kyphosis PT-OP-K Range of Motion Start: 01/29/24 11:36 Freq: Status: Active Protocol: Document 03/04/24 10:40 [facility] (Rec: 03/04/24 13:48 [id number] Cervical Spine Range of Motion Cervical Spine Active Degrees Flexion 59 Extension 40 Rotation Left 48 Rotation Right 49 Lateral Flexion Left 22 Lateral Flexion Right 38 Comments flex/ext & rot:makes feel icky but not quite dizzy/nausea THoracic rot:R 54; L50 feels crunching up on ribs TMJ Range of Motion Jaw Openning Jaw Openning (mm) 25 Comments Comments tight at end of range; less range w/R deviation but feels easier than L; jaw justine R PT-OP-L Special Tests Start: 01/29/24 11:36 Freq: Status: Active Protocol: Document 03/04/24 10:40 [facility] (Rec: 03/04/24 13:48 [id number] Special Tests Cervical Spine Special Tests cranial n screen Test Results neg except some saccades noted w/smooth pursuit atlas/axis shear Test Results neg tectoral membrane Test Results neg arterial screening Test Results position screen neg Comments BP:168/68; ausciltation of carotid and heart WNL Alar Ligament Test Results neg spurling Test Results neg-just pressure Traction Test Results relief-dec pressure PT-OP-Q Treatments Start: 01/29/24 11:36 Freq: Status: Active Protocol: Document 04/01/24 14:36 [facility] (Rec: 04/01/24 15:31 [id number] Therapeutic Exercises Supine Exercises foam roll Supine Exercise Name //:flex, HAbd, abd; perpendicular tspine ext Side bilateral Reps/Minutes 8 min total Manual Therapy Treatment Soft Tissue Mobilization neck Body Location suboccipitals, UT, SCM, scalene, LS Mobilization Type Rolling,Sustained Pressure, Other Intensity/Depth Moderate Body Position Hooklying Comments cued breath and ROM jaw Body Location B masseter, R med pterygoid, R digastric Mobilization Type Rolling,Sustained Pressure, Other Intensity/Depth Moderate Body Position Hooklying Comments more tightness on R head Body Location B cranium fascia R more Mobilization Type Sustained Pressure Intensity/Depth Superficial Comments good feedback reduction tension Joint Mobilizations cervical Comments C1&2 transverse L FM PT-OP-R Modalities Start: 01/29/24 11:36 Freq: Status: Active Protocol: Document 04/01/24 14:36 [facility] (Rec: 04/01/24 15:31 [facility] [id number]) Hot Pack/Cold Pack Treatment Cold Pack Location cervical and thoracic PT-OP-T Assessment and Plan Start: 01/29/24 11:36 Freq: Status: Active Protocol: Document 04/01/24 14:36 [facility] (Rec: 04/01/24 15:31 [facility] [id number]) Physical Therapy Assessment Goals pain Director Home Goal (LTG) Pt will report a 75% decrease in feeling of head, neck and jaw tension in order to participate in daily life w/ less difficulty LTG Duration 05/27 ROM Short Term Goal (STG) pt will have at least 35 mm of opening of jaw w/o inc jaw tension 03/24/24: jaw 34cm arrival, not pain but feel clunk on R. STG Duration 04/23 progressing 03/24 Director Home Goal (LTG) Pt will have full cervical ROM w/o inc pain or feeling off LTG Duration 05/27 ear Director Home Goal (LTG) Pt will report dec ear tension and symptoms w/o inc discomfort when driving and changing elevations. LTG Duration 05/27 Assessment Summary Assessment Pt reported feeling pull into ear and feeling of close to clearing w/work on cranial fasica and C1 region. More tightness on R today, likely related to her fall yesterday Physical Therapy Plan Frequency and Duration Frequency of Treatment 1-2x/wk Duration of treatment (weeks) 12 Plan of Care Start Date 03/04/24 Plan of Care End Date 05/27/24 Next Visit Focus/Plan Next Note Type Treatment Note Next Visit Plan Recheck HEP, Slowly advance mobility and postural exercises, recheck resisted resisted humeral ER/scap retraction /c head/cervical/ jaw alignment. POC: work on cranium and upper cervical mobility and upper tspine mobility, chin tucks Check orthostatics (supine, sit, stand)
--- NOTE | 2024-04-09 10:32 | PT.OTN ---
Addendum entered and electronically signed by Nita Read PTA 04/09/24 16:22: Provided HOs for supine exercises for visual carryover PT initiated last tx, pt requested visual support. 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 L has gotten better and R still can't clear. Eardrum looks normal, hearing normal, no fluid. ENT mentioned poking hole in eardrum . Going up/down hills/ elevation can't get R ear to clear and pressure just builds up. She does have B jaw tension. She has been told she may be a candidate for double jaw surgery. She went and saw a specialized doctor in [place]. She got a mouthguard for at night and has had it for 2 weeks and is not sure what she thinks of it. when she wears it,s he has to keep moving her jaw and has bite plates to reset her bite after . 1x/week she wears her old nightguard. She is waiting to do another sleep study. She is in a lot of stress currently and in December, she had a weird thing happen [facility] felt like she wasn't really there. It was kind of how she felt after her covid vaccine. She started feeling worse and layed down where dizzy and nauseated. It got bad enough that she talked to her friend who was a nurse and 911 was called. Vitals were checked by EMT and told she was having a panic attack. She saw her primary the next day. Sometimes it feels like she is carrying so much overwhelm that it becomes beyond what her body can handle. She is seeing counselor. Has had head pressure when bends over also . She has had imaging of brain and nothing showed. Her head aches, but she doesn't have DANIEL often. She does have neck pain and sometimes when she wakes up, she can hardly move it. She is seeing a chiro which helps her neck but hasn' t changed the head pressure or the ear clearing. EKG has been done by EMT and looked normal. Pt reports L ankle occ feels difficulty w/down stairs and just feels tight down L leg. 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 Treatment Goals Patient/Caregiver Goals improve ear ability to clear, jaw tension PT-OP-C Subjective Start: 01/29/24 11:36 Freq: Status: Active Protocol: Document 04/08/24 09:50 SP (Rec: 04/08/24 10:36 SP [id number]) OP-PT Subjective Patient Comments Patient Comments Open Jaw 34cm arrival. She reports not having pain as result of PT sessions, uncomfortable manual during tx but good progress relief. Tension arrival neck and jaw. PT-OP-F Manual Assessment Start: 01/29/24 11:36 Freq: Status: Active Protocol: Document 03/04/24 10:40 [facility] (Rec: 03/04/24 13:48 [facility] [id number]) Manual Assessments Soft Tissue Assessment Soft Tissue Mobility Assessment tenderness and tightness throguhout neck and cranium Joint Mobility Assessment Joint Mobility Assessment ant shearing TMJ-occ clicking R>L; ant shearing L>R w/jaw opening; post shear R>L w/ closing PT-OP-J Posture/Palpation/Skin Start: 01/29/24 11:36 Freq: Status: Active Protocol: Document 03/04/24 10:40 [facility] (Rec: 03/04/24 13:48 [facility] [id number]) Posture Evaluation Roldan Postural Classification System Roldan Postural Classifications Posterior/Anterior Comments Posture Comments head R SB; R scap >L abd, L shoulder higher, fwd head, inc thoracic kyphosis PT-OP-K Range of Motion Start: 01/29/24 11:36 Freq: Status: Active Protocol: Document 03/04/24 10:40 [facility] (Rec: 03/04/24 13:48 [facility] [id number]) Cervical Spine Range of Motion Cervical Spine Active Degrees Flexion 59 Extension 40 Rotation Left 48 Rotation Right 49 Lateral Flexion Left 22 Lateral Flexion Right 38 Comments flex/ext & rot:makes feel icky but not quite dizzy/nausea THoracic rot:R 54; L50 feels crunching up on ribs TMJ Range of Motion Jaw Openning Jaw Openning (mm) 25 Comments Comments tight at end of range; less range w/R deviation but feels easier than L; jaw justine R PT-OP-L Special Tests Start: 01/29/24 11:36 Freq: Status: Active Protocol: Document 03/04/24 10:40 [facility] (Rec: 03/04/24 13:48 [facility] [id number]) Special Tests Cervical Spine Special Tests cranial n screen Test Results neg except some saccades noted w/smooth pursuit atlas/axis shear Test Results neg tectoral membrane Test Results neg arterial screening Test Results position screen neg Comments BP:168/68; ausciltation of carotid and heart WNL Alar Ligament Test Results neg spurling Test Results neg-just pressure Traction Test Results relief-dec pressure PT-OP-Q Treatments Start: 01/29/24 11:36 Freq: Status: Active Protocol: Document 04/08/24 09:50 SP (Rec: 04/08/24 10:36 SP [id number]) Therapeutic Exercises Supine Exercises foam roll Supine Exercise Name //:flex, HAbd, abd; perpendicular tspine ext Side bilateral Reps/Minutes 3min Comments cued TA/ PPT neutral, slow pacing. Sitting Exercises shld ext Sitting Exercise Name added to HEP Side bilateral Resistance TB #3 [place] Reps/Minutes x10 rep Comments cued elbow straight, rhomboid fac. Shld ER Sitting Exercise Name reviewed (declined HO) Side bilateral Resistance TB #2 aqua Reps/Minutes 5 SH x5 Comments scapular retraction and humeral ER, cued elongated tall posture/head nod jaw Sitting Exercise Name open close mouth w/tongue at rogue Equipment Used use mirror jaw midline alignment Reps/Minutes 8 Comments front mirror and tongue roof mouth during ex Manual Therapy Treatment Soft Tissue Mobilization neck Body Location R>L suboccipitals, UT, SCM, scalene, LS Mobilization Type Rolling,Sustained Pressure, Other Intensity/Depth Moderate Body Position Hooklying Comments cued breath and ROM open close jaw, head nods jaw Body Location B masseter, R med pterygoid, R digastric Mobilization Type Rolling,Sustained Pressure, Other Intensity/Depth Moderate Body Position Hooklying Comments more tightness on R proximal PT-OP-R Modalities Start: 01/29/24 11:36 Freq: Status: Active Protocol: Document 04/01/24 14:36 LR (Rec: 04/01/24 15:31 [facility] [id number]) Hot Pack/Cold Pack Treatment Cold Pack Location cervical and thoracic PT-OP-T Assessment and Plan Start: 01/29/24 11:36 Freq: Status: Active Protocol: Document 04/08/24 09:50 SP (Rec: 04/08/24 10:36 SP [id number]) Physical Therapy Assessment Goals pain Longterm Goal (LTG) Pt will report a 75% decrease in feeling of head, neck and jaw tension in order to participate in daily life w/ less difficulty LTG Duration 05/27 ROM Short Term Goal (STG) pt will have at least 35 mm of opening of jaw w/o inc jaw tension 03/24/24: jaw 34cm arrival, not pain but feel clunk on R. STG Duration 04/23 progressing 03/24 Rack Puller Goal (LTG) Pt will have full cervical ROM w/o inc pain or feeling off LTG Duration 05/27 ear Rack Puller Goal (LTG) Pt will report dec ear tension and symptoms w/o inc discomfort when driving and changing elevations. LTG Duration 05/27 Assessment Summary Assessment Improved jaw opening 36 cm post manual, reports little soreness and little more clicking when mouth open all the way end tx. Improvement in cervical tension reduction can rotate had better. Cues provided for retraction neutral CS and PPT LS toward noodle and light touch tongue on roof mouth during supine ther ex review to support better mandible alignment. Provided added resisted shld ext and reviewed shld ER with cues for neutral head/CS carryover alignment with discussion during ADLs. Physical Therapy Plan Frequency and Duration Frequency of Treatment 1-2x/wk Duration of treatment (weeks) 12 Plan of Care Start Date 03/04/24 Plan of Care End Date 05/27/24 Therapeutic Interventions Therapeutic Interventions Canalithic Repositioning,Home Exercise Program,Joint Mobilizations,Manual Therapy, Neuromuscular Re-education, Patient/Caregiver Education, Self-Care/Home Management,Soft Tissue Mobilization,Taping, Therapeutic Activities, Therapeutic Exercises, Vestibular Rehabilitation Modalities Cold Pack/Ice Massage,Electric Stimulation,Hot Packs, Infrared Therapy,Traction- Mechanical,Ultrasound Next Visit Focus/Plan Next Note Type Treatment Note Next Visit Plan Ask response to manual and added resisted shld ext and continued review form humeral ER /c jaw and CS alignment wall vs seated. Recheck HEP. PT POC: Slowly advance mobility and postural exercises. POC: work on cranium and upper cervical mobility and upper tspine mobility, chin tucks Check orthostatics (supine, sit, stand)
--- NOTE | 2024-04-19 16:05 | PT.OTN ---
Current Diagnoses Unspecified Eustachian tube disorder, bilateral (04/19/24) Arthropathy of bilateral temporomandibular joint (04/19/24) Fibromyalgia (04/19/24) Physical Therapy Treatment Note PT-OP-A Visit Information Start: 01/29/24 11:36 Freq: Status: Active Protocol: Document 04/19/24 13:02 [facility] (Rec: 04/19/24 16:05 [facility] [id number]) Out-Patient Physical Therapy Visit Information Visit Information Visit Type Treatment Note Visit Start Time 13:09 Visit Stop Time 13:47 Visit Number 8 Number of PROCESSING INSPECTOR Visits 0 PT-OP-B Current Condition Start: 01/29/24 11:36 Freq: Status: Active Protocol: Document 03/04/24 10:40 [facility] (Rec: 03/04/24 13:48 [facility] [id number]) Current Condition History of Current Condition Onset Date about 1.5 years pt thinks Current Complaints Jaw tension, neck pain, ear unable to clear History of Current Condition Pt has pressure where she can' t clear her ears. L has gotten better and R still can't clear. Eardrum looks normal, hearing normal, no fluid. ENT mentioned poking hole in eardrum . Going up/down hills/ elevation can't get R ear to clear and pressure just builds up. She does have B jaw tension. She has been told she may be a candidate for double jaw surgery. She went and saw a specialized doctor in [place]. She got a mouthguard for at night and has had it for 2 weeks and is not sure what she thinks of it. when she wears it,s he has to keep moving her jaw and has bite plates to reset her bite after . 1x/week she wears her old nightguard. She is waiting to do another sleep study. She is in a lot of stress currently and in December, she had a weird thing happen wehre [facility] felt like she wasn't really there. It was kind of how she felt after her covid vaccine. She started feeling worse and layed down where dizzy and nauseated. It got bad enough that she talked to her friend who was a nurse and 911 was called. Vitals were checked by EMT and told she was having a panic attack. She saw her primary the next day. Sometimes it feels like she is carrying so much overwhelm that it becomes beyond what her body can handle. She is seeing counselor. Has had head pressure when bends over also . She has had imaging of brain and nothing showed. Her head aches, but she doesn't have DANIEL often. She does have neck pain and sometimes when she wakes up, she can hardly move it. She is seeing a chiro which helps her neck but hasn' t changed the head pressure or the ear clearing. EKG has been done by EMT and looked normal. Pt reports L ankle occ feels difficulty w/down stairs and just feels tight down L leg. 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 Treatment Goals Patient/Caregiver Goals improve ear ability to clear, jaw tension PT-OP-C Subjective Start: 01/29/24 11:36 Freq: Status: Active Protocol: Document 04/19/24 13:02 [facility] (Rec: 04/19/24 16:05 [facility] [id number]) OP-PT Subjective Patient Comments Patient Comments Pt feels like her R side is clogged a lot and L a little bit. Notes its been stressful past week and feels like that is inc symptoms PT-OP-F Manual Assessment Start: 01/29/24 11:36 Freq: Status: Active Protocol: Document 03/04/24 10:40 [facility] (Rec: 03/04/24 13:48 [facility] [id number]) Manual Assessments Soft Tissue Assessment Soft Tissue Mobility Assessment tenderness and tightness throguhout neck and cranium Joint Mobility Assessment Joint Mobility Assessment ant shearing TMJ-occ clicking R>L; ant shearing L>R w/jaw opening; post shear R>L w/ closing PT-OP-J Posture/Palpation/Skin Start: 01/29/24 11:36 Freq: Status: Active Protocol: Document 03/04/24 10:40 [facility] (Rec: 03/04/24 13:48 [facility] [id number]) Posture Evaluation Roldan Postural Classification System Roldan Postural Classifications Posterior/Anterior Comments Posture Comments head R SB; R scap >L abd, L shoulder higher, fwd head, inc thoracic kyphosis PT-OP-K Range of Motion Start: 01/29/24 11:36 Freq: Status: Active Protocol: Document 03/04/24 10:40 [facility] (Rec: 03/04/24 13:48 [facility] [id number]) Cervical Spine Range of Motion Cervical Spine Active Degrees Flexion 59 Extension 40 Rotation Left 48 Rotation Right 49 Lateral Flexion Left 22 Lateral Flexion Right 38 Comments flex/ext & rot:makes feel icky but not quite dizzy/nausea THoracic rot:R 54; L50 feels crunching up on ribs TMJ Range of Motion Jaw Openning Jaw Openning (mm) 25 Comments Comments tight at end of range; less range w/R deviation but feels easier than L; jaw justine R PT-OP-L Special Tests Start: 01/29/24 11:36 Freq: Status: Active Protocol: Document 03/04/24 10:40 [facility] (Rec: 03/04/24 13:48 [facility] [id number]) Special Tests Cervical Spine Special Tests cranial n screen Test Results neg except some saccades noted w/smooth pursuit atlas/axis shear Test Results neg tectoral membrane Test Results neg arterial screening Test Results position screen neg Comments BP:168/68; ausciltation of carotid and heart WNL Alar Ligament Test Results neg spurling Test Results neg-just pressure Traction Test Results relief-dec pressure PT-OP-Q Treatments Start: 01/29/24 11:36 Freq: Status: Active Protocol: Document 04/19/24 13:02 [facility] (Rec: 04/19/24 16:05 [facility] [id number]) Therapeutic Activity Therapeutic Activity posture Reps/Minutes 8 min Comments mirror work working on even wt bearing and slight lat tilt of trunk and neck for more neutral position-mult reps so pt indep Manual Therapy Treatment Consent Patient gave verbal consent for manual Yes treatment Soft Tissue Mobilization scap Body Location R lats, teres Mobilization Type Rolling,Strumming,Sustained Pressure Intensity/Depth Moderate Body Position Sitting neck Body Location R>L suboccipitals, UT, SCM, scalene, LS Mobilization Type Rolling,Sustained Pressure, Other Intensity/Depth Moderate Body Position Hooklying Comments cued breath and ROM open close jaw, head nods jaw Body Location B masseter, R med pterygoid, R digastric Joint Mobilizations TMJ Joint R AP FM w/opening cervical Grade II Comments transverse R C2 FM PT-OP-R Modalities Start: 01/29/24 11:36 Freq: Status: Active Protocol: Document 04/01/24 14:36 [facility] (Rec: 04/01/24 15:31 [facility] [id number]) Hot Pack/Cold Pack Treatment Cold Pack Location cervical and thoracic PT-OP-T Assessment and Plan Start: 01/29/24 11:36 Freq: Status: Active Protocol: Document 04/19/24 13:02 [facility] (Rec: 04/19/24 16:05 [facility] [id number]) Physical Therapy Assessment Goals pain Broke Handler Goal (LTG) Pt will report a 75% decrease in feeling of head, neck and jaw tension in order to participate in daily life w/ less difficulty LTG Duration 05/27 ROM Short Term Goal (STG) pt will have at least 35 mm of opening of jaw w/o inc jaw tension 03/24/24: jaw 34cm arrival, not pain but feel clunk on R. STG Duration 04/23 progressing 03/24 Broke Handler Goal (LTG) Pt will have full cervical ROM w/o inc pain or feeling off LTG Duration 05/27 ear Penitentiary Goal (LTG) Pt will report dec ear tension and symptoms w/o inc discomfort when driving and changing elevations. LTG Duration 05/27 Assessment Summary Assessment Pt felt release in tension of R TMJ/ear region w/manual. Improved abiltiy to get into netural after manual. mirror needed for self postural correction Physical Therapy Plan Frequency and Duration Frequency of Treatment 1-2x/wk Duration of treatment (weeks) 12 Plan of Care Start Date 03/04/24 Plan of Care End Date 05/27/24 Next Visit Focus/Plan Next Note Type Treatment Note Next Visit Plan cont to work on postural stability & manual to improve jaw mobility
--- NOTE | 2024-04-27 16:42 | PT.OTN ---
Current Diagnoses Unspecified Eustachian tube disorder, bilateral (04/27/24) Arthropathy of bilateral temporomandibular joint (04/27/24) Fibromyalgia (04/27/24) Physical Therapy Treatment Note PT-OP-A Visit Information Start: 01/29/24 11:36 Freq: Status: Active Protocol: Document 04/27/24 15:57 [facility] (Rec: 04/27/24 16:41 [facility] [id number]) Out-Patient Physical Therapy Visit Information Visit Information Visit Type Treatment Note Visit Start Time 13:52 Visit Stop Time 14:40 Visit Number 9 Number of PSYCHOLOGIST PERSONNEL Visits 0 PT-OP-B Current Condition Start: 01/29/24 11:36 Freq: Status: Active Protocol: Document 03/04/24 10:40 [facility] (Rec: 03/04/24 13:48 [facility] [id number]) Current Condition History of Current Condition Onset Date about 1.5 years pt thinks Current Complaints Jaw tension, neck pain, ear unable to clear History of Current Condition Pt has pressure where she can' t clear her ears. L has gotten better and R still can't clear. Eardrum looks normal, hearing normal, no fluid. ENT mentioned poking hole in eardrum . Going up/down hills/ elevation can't get R ear to clear and pressure just builds up. She does have B jaw tension. She has been told she may be a candidate for double jaw surgery. She went and saw a specialized doctor in [place]. She got a mouthguard for at night and has had it for 2 weeks and is not sure what she thinks of it. when she wears it,s he has to keep moving her jaw and has bite plates to reset her bite after . 1x/week she wears her old nightguard. She is waiting to do another sleep study. She is in a lot of stress currently and in December, she had a weird thing happen wehre [facility] felt like she wasn't really there. It was kind of how she felt after her covid vaccine. She started feeling worse and layed down where dizzy and nauseated. It got bad enough that she talked to her friend who was a nurse and 911 was called. Vitals were checked by EMT and told she was having a panic attack. She saw her primary the next day. Sometimes it feels like she is carrying so much overwhelm that it becomes beyond what her body can handle. She is seeing counselor. Has had head pressure when bends over also . She has had imaging of brain and nothing showed. Her head aches, but she doesn't have DANIEL often. She does have neck pain and sometimes when she wakes up, she can hardly move it. She is seeing a chiro which helps her neck but hasn' t changed the head pressure or the ear clearing. EKG has been done by EMT and looked normal. Pt reports L ankle occ feels difficulty w/down stairs and just feels tight down L leg. 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 Treatment Goals Patient/Caregiver Goals improve ear ability to clear, jaw tension PT-OP-C Subjective Start: 01/29/24 11:36 Freq: Status: Active Protocol: Document 04/27/24 15:57 [facility] (Rec: 04/27/24 16:41 [facility] [id number]) OP-PT Subjective Patient Comments Patient Comments Pt reports she feels like L is only sometimes feeling a little clogged and the R ear feels less consistently clogged PT-OP-F Manual Assessment Start: 01/29/24 11:36 Freq: Status: Active Protocol: Document 03/04/24 10:40 [facility] (Rec: 03/04/24 13:48 [facility] [id number]) Manual Assessments Soft Tissue Assessment Soft Tissue Mobility Assessment tenderness and tightness throguhout neck and cranium Joint Mobility Assessment Joint Mobility Assessment ant shearing TMJ-occ clicking R>L; ant shearing L>R w/jaw opening; post shear R>L w/ closing PT-OP-J Posture/Palpation/Skin Start: 01/29/24 11:36 Freq: Status: Active Protocol: Document 03/04/24 10:40 [facility] ([facility]/04/24 [id number] Posture Evaluation Roldan Postural Classification System Roldan Postural Classifications Posterior/Anterior Comments Posture Comments head R SB; R scap >L abd, L shoulder higher, fwd head, inc thoracic kyphosis PT-OP-K Range of Motion Start: 01/29/24 11:36 Freq: Status: Active Protocol: Document 03/04/24 10:40 [facility] (Rec: 03/04/24 13:48 [facility] [id number]) Cervical Spine Range of Motion Cervical Spine Active Degrees Flexion 59 Extension 40 Rotation Left 48 Rotation Right 49 Lateral Flexion Left 22 Lateral Flexion Right 38 Comments flex/ext & rot:makes feel icky but not quite dizzy/nausea THoracic rot:R 54; L50 feels crunching up on ribs TMJ Range of Motion Jaw Openning Jaw Openning (mm) 25 Comments Comments tight at end of range; less range w/R deviation but feels easier than L; jaw justine R PT-OP-L Special Tests Start: 01/29/24 11:36 Freq: Status: Active Protocol: Document 03/04/24 10:40 [facility] (Rec: 03/04/24 13:48 [facility] [id number]) Special Tests Cervical Spine Special Tests cranial n screen Test Results neg except some saccades noted w/smooth pursuit atlas/axis shear Test Results neg tectoral membrane Test Results neg arterial screening Test Results position screen neg Comments BP:168/68; ausciltation of carotid and heart WNL Alar Ligament Test Results neg spurling Test Results neg-just pressure Traction Test Results relief-dec pressure PT-OP-Q Treatments Start: 01/29/24 11:36 Freq: Status: Active Protocol: Document 04/27/24 15:57 [facility] (Rec: 04/27/24 16:41 [facility] [id number]) Manual Therapy Treatment Consent Patient gave verbal consent for manual Yes treatment Soft Tissue Mobilization neck Body Location R>L suboccipitals, UT, SCM, scalene, LS Mobilization Type Rolling,Sustained Pressure, Other Intensity/Depth Moderate Body Position Hooklying Comments cued breath and ROM open close jaw, head nods jaw Body Location B masseter, R med pterygoid, R digastric Mobilization Type Rolling,Sustained Pressure, Other Intensity/Depth Moderate Joint Mobilizations rib Comments 1. r 1st rib caudal FM supine 2. L rib 7 external torsion FM seated TMJ Joint R AP FM w/opening cervical Grade II Comments transverse C2-4 L FM Neuro Re-Education Treatment Movement Re-Education Movement Re-education Activities postural re edu in mirror w/ position of neck and spine position 2. work on jaw opening in mirror w/o deviation Other Activities facilitation Comments manual facilitation in supine w/jaw opening w/rhythmic stabilization PT-OP-R Modalities Start: 01/29/24 11:36 Freq: Status: Active Protocol: Document 04/27/24 15:57 [facility] (Rec: 04/27/24 16:42 [facility] [id number]) Hot Pack/Cold Pack Treatment Cold Pack Location cervical Patient Position Hooklying PT-OP-T Assessment and Plan Start: 01/29/24 11:36 Freq: Status: Active Protocol: Document 04/27/24 15:57 [facility] (Rec: 04/27/24 16:41 [facility] [id number]) Physical Therapy Assessment Goals pain Retirement Goal (LTG) Pt will report a 75% decrease in feeling of head, neck and jaw tension in order to participate in daily life w/ less difficulty LTG Duration 05/27 ROM Short Term Goal (STG) pt will have at least 35 mm of opening of jaw w/o inc jaw tension 03/24/24: jaw 34cm arrival, not pain but feel clunk on R. STG Duration 04/23 progressing 03/24 Innovation Manager Goal (LTG) Pt will have full cervical ROM w/o inc pain or feeling off LTG Duration 05/27 ear Innovation Manager Goal (LTG) Pt will report dec ear tension and symptoms w/o inc discomfort when driving and changing elevations. LTG Duration 05/27 Assessment Summary Assessment Pt had improved ease to get into neutral posture after maual treatment and had improved jaw tracking to neutral. Physical Therapy Plan Frequency and Duration Frequency of Treatment 1-2x/wk Duration of treatment (weeks) 12 Plan of Care Start Date 03/04/24 Plan of Care End Date 05/27/24 Next Visit Focus/Plan Next Note Type Progress Note Next Visit Plan cont to work on jaw motion & upper cervical mobility
--- NOTE | 2024-05-18 16:44 | PT.OTRE ---
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 (12/04/21) Fibromyalgia Hyperlipidemia Prediabetes Tendinopathy of right rotator cuff (08/13/21) Surgical History (Last Reviewed 07/02/23 @ 18:34 by Monserrat Dong PA-C) Status post delivery Visit Care Team Role Provider Type Jenny Manzo MD Family Provider Physician Specialty: Gynecology INSPECTOR Obstetrics Address: [address] [place] [address], [id number] Email: [email or web address] Quang Webb MD Attending Provider Physician Primary Care Provider Referring Provider Specialty: Family Practice Address: [address] [place] [address], [id number] Email: [email or web address] Physical Therapy Re-Evaluation PT-OP-A Visit Information Start: 01/29/24 11:36 Freq: Status: Active Protocol: Document 05/18/24 13:51 [facility] (Rec: 05/18/24 16:44 [facility] [id number]) Out-Patient Physical Therapy Visit Information Visit Information Visit Type Re-Evaluation Visit Start Time 13:50 Visit Stop Time 14:30 Visit Number 10 Number of ACCOUNT EXECUTIVE KEY ACCOUNTS Visits 0 PT-OP-B Current Condition Start: 01/29/24 11:36 Freq: Status: Active Protocol: Document 03/04/24 10:40 [facility] (Rec: 03/04/24 13:48 [facility] [id number]) Current Condition History of Current Condition Onset Date about 1.5 years pt thinks Current Complaints Jaw tension, neck pain, ear unable to clear History of Current Condition Pt has pressure where she can' t clear her ears. L has gotten better and R still can't clear. Eardrum looks normal, hearing normal, no fluid. ENT mentioned poking hole in eardrum . Going up/down hills/ elevation can't get R ear to clear and pressure just builds up. She does have B jaw tension. She has been told she may be a candidate for double jaw surgery. She went and saw a specialized doctor in [place]. She got a mouthguard for at night and has had it for 2 weeks and is not sure what she thinks of it. when she wears it,s he has to keep moving her jaw and has bite plates to reset her bite after . 1x/week she wears her old nightguard. She is waiting to do another sleep study. She is in a lot of stress currently and in December, she had a weird thing happen renet[facility] carrera felt like she wasn't really there. It was kind of how she felt after her covid vaccine. She started feeling worse and layed down where dizzy and nauseated. It got bad enough that she talked to her friend who was a nurse and 911 was called. Vitals were checked by EMT and told she was having a panic attack. She saw her primary the next day. Sometimes it feels like she is carrying so much overwhelm that it becomes beyond what her body can handle. She is seeing counselor. Has had head pressure when bends over also . She has had imaging of brain and nothing showed. Her head aches, but she doesn't have DANIEL often. She does have neck pain and sometimes when she wakes up, she can hardly move it. She is seeing a chiro which helps her neck but hasn' t changed the head pressure or the ear clearing. EKG has been done by EMT and looked normal. Pt reports L ankle occ feels difficulty w/down stairs and just feels tight down L leg. 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 Treatment Goals Patient/Caregiver Goals improve ear ability to clear, jaw tension PT-OP-C Subjective Start: 01/29/24 11:36 Freq: Status: Active Protocol: Document 05/18/24 13:51 [facility] (Rec: 05/18/24 16:44 [facility] [id number]) OP-PT Subjective Patient Comments Patient Comments Pt reports [place] she landed weird off a step and was having pain in heel and had a cut. She did get imaging w/heel spur. She was told from doctor thought it was plantar fascia injury. Pain is intense first thing in AM. never had heel pain before. Saw Dr. Aguirre this AM and he wants her to continue PT for now. Does feel like both ar improving but still R>L pressure. Patient Reported Progress Improving OP-PT Pain Assessment Location L heel Pain Location Details L inf heel Scale Used Numeric (0 - 10) Description Stabbing Frequency Frequent Other Pain Aggravating Factors 1st thing in am, 1st getting up, move foot PT-OP-F Manual Assessment Start: 01/29/24 11:36 Freq: Status: Active Protocol: Document 03/04/24 10:40 [facility] (Rec: 03/04/24 13:48 [facility] [id number]) Manual Assessments Soft Tissue Assessment Soft Tissue Mobility Assessment tenderness and tightness throguhout neck and cranium Joint Mobility Assessment Joint Mobility Assessment ant shearing TMJ-occ clicking R>L; ant shearing L>R w/jaw opening; post shear R>L w/ closing PT-OP-J Posture/Palpation/Skin Start: 01/29/24 11:36 Freq: Status: Active Protocol: Document 03/04/24 10:40 [facility] (Rec: 03/04/24 13:48 [facility] [id number]) Posture Evaluation Roldan Postural Classification System Roldan Postural Classifications Posterior/Anterior Comments Posture Comments head R SB; R scap >L abd, L shoulder higher, fwd head, inc thoracic kyphosis PT-OP-K Range of Motion Start: 01/29/24 11:36 Freq: Status: Active Protocol: Document 05/18/24 13:51 [facility] (Rec: 05/18/24 16:44 [facility] [id number]) Cervical Spine Range of Motion Cervical Spine Active Degrees Flexion 68 Extension 48 Rotation Left 58 Rotation Right 61 Lateral Flexion Left 35 Lateral Flexion Right 38 Comments stiff on R w/R SB and tight L TMJ Range of Motion Jaw Openning Jaw Openning (mm) 34 Ankle and Foot Goniometric Range of Motion Ankle and Foot Measured in Degrees Right Active Dorsiflexion with Knee Extended 5 Comments lacking DF to neutral in knee ext position Left Active Dorsiflexion with Knee Flexed 3 Plantarflexion 65 Inversion 32 Eversion 22 Comments pain DF and inversion lacking DF to neutral in knee ext position PT-OP-L Special Tests Start: 01/29/24 11:36 Freq: Status: Active Protocol: Document 03/04/24 10:40 [facility] (Rec: 03/04/24 13:48 [facility] [id number]) Special Tests Cervical Spine Special Tests cranial n screen Test Results neg except some saccades noted w/smooth pursuit atlas/axis shear Test Results neg tectoral membrane Test Results neg arterial screening Test Results position screen neg Comments BP:168/68; ausciltation of carotid and heart WNL Alar Ligament Test Results neg spurling Test Results neg-just pressure Traction Test Results relief-dec pressure PT-OP-M Strength Start: 01/29/24 11:36 Freq: Status: Active Protocol: Document 05/18/24 13:51 [facility] (Rec: 05/18/24 16:44 [facility] [id number]) Ankle/Foot Strength Ankle and Foot Manual Muscle Testing Left Dorsiflexion (L4) 4+ Good+ Plantarflexion (S1) 2+ Poor+ Inversion 4+ Good+ Eversion (S1) 5 Normal Comments unable to do heel raises Toe Strength Toe Manual Muscle Testing Left Flexion 4 Good Extension 5 Normal Comments all toes PT-OP-Q Treatments Start: 01/29/24 11:36 Freq: Status: Active Protocol: Document 05/18/24 13:51 [facility] (Rec: 05/18/24 16:44 [facility] [id number]) Therapeutic Exercises Standing Exercises stretch Standing Exercise Name calf at step Side bilateral Reps/Minutes 2 min total w/instruction Manual Therapy Treatment Consent Patient gave verbal consent for manual Yes treatment Soft Tissue Mobilization calf Body Location L Mobilization Type Rolling Intensity/Depth Moderate Body Position Supine PT-OP-R Modalities Start: 01/29/24 11:36 Freq: Status: Active Protocol: Document 04/27/24 15:57 [facility] (Rec: 04/27/24 16:42 [facility] [id number]) Hot Pack/Cold Pack Treatment Cold Pack Location cervical Patient Position Hooklying PT-OP-T Assessment and Plan Start: 01/29/24 11:36 Freq: Status: Active Protocol: Document 05/18/24 13:51 [facility] (Rec: 05/18/24 16:44 [facility] [id number]) Physical Therapy Assessment Goals ankle ROM Short Term Goal (STG) Pt will improve DF to neutral in knee ext position to dec strain on heel B STG Duration 06/20 Records Tech Goal (LTG) Pt will have DF to at least 5 deg in knee ext B and at least 8 deg in knee flex position B to allow for normal gait mehcanics LTG Duration 07/29 foot Records Tech Goal (LTG) Pt will report no pain greater than 2/10 when first getting up in AM and after sitting extended in heel LTG Duration 07/29 pain Skilled Nursing Goal (LTG) Pt will report a 75% decrease in feeling of head, neck and jaw tension in order to participate in daily life w/ less difficulty 05/18-has had a lot of stress, feels like neck has improved. unsure about jaw LTG Duration 07/29 ROM Short Term Goal (STG) pt will have at least 35 mm of opening of jaw w/o inc jaw tension 03/24/24: jaw 34cm arrival, not pain but feel clunk on R. 05/18-mild tightness 34 mm STG Duration 06/03 Skilled Nursing Goal (LTG) Pt will have full cervical ROM w/o inc pain or feeling off 05/18 improved significnat LTG Duration 07/21 ear Skilled Nursing Goal (LTG) Pt will report dec ear tension and symptoms w/o inc discomfort when driving and changing elevations. 05/18 improved overall but still limited LTG Duration 08/10 Assessment Summary Assessment Pt returns from vacation w/new referral from provider to onset of L heel pain after a mistep when on vacation that appears like tightness d/t dec ankle mobility on L>R. She has made progress w/jaw and neck mobility, and some mild dec ear plugged sensation w/PT . Cont w/PT for neck/jaw and ear discomfort along w/start PT for L heel pain. Physical Therapy Plan Frequency and Duration Frequency of Treatment 1-2x/wk Duration of treatment (weeks) 12 Plan of Care Start Date 05/18/24 Plan of Care End Date 08/10/24 Therapeutic Interventions Therapeutic Interventions Canalithic Repositioning,Home Exercise Program,Joint Mobilizations,Manual Therapy, Neuromuscular Re-education, Patient/Caregiver Education, Self-Care/Home Management,Soft Tissue Mobilization,Taping, Therapeutic Activities, Therapeutic Exercises, Vestibular Rehabilitation Modalities Cold Pack/Ice Massage,Electric Stimulation,Hot Packs, Infrared Therapy,Traction- Mechanical,Ultrasound Next Visit Focus/Plan Next Note Type Treatment Note Next Visit Plan cont to work on jaw motion & upper cervical mobility; STM to calf and ankle/foot jt mobs , try kt taping but avoid foot cut
--- NOTE | 2024-05-18 16:44 | PT.OPPOC ---
Physical, Occupational & Speech Therapy At 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/24) Plantar fascial fibromatosis (05/18/24) Fibromyalgia (05/18/24) Visit Care Team Role Provider Type Jenny Manzo MD Family Provider Physician Specialty: Gynecology GUEST RELATIONS AGENT Obstetrics Address: [address] [place] [address], [id number] Email: [email or web address] Quang Webb MD Attending Provider Physician Primary Care Provider Referring Provider Specialty: Family Practice Address: [address] [place] [address], [id number] Email: [email or web address] Plan Of Care PT-OP-B Current Condition Start: 01/29/24 11:36 Freq: Status: Active Protocol: Document 03/04/24 10:40 [facility] (Rec: 03/04/24 13:48 [facility] [id number]) Current Condition History of Current Condition Onset Date about 1.5 years pt thinks Current Complaints Jaw tension, neck pain, ear unable to clear History of Current Condition Pt has pressure where she can' t clear her ears. L has gotten better and R still can't clear. Eardrum looks normal, hearing normal, no fluid. ENT mentioned poking hole in eardrum . Going up/down hills/ elevation can't get R ear to clear and pressure just builds up. She does have B jaw tension. She has been told she may be a candidate for double jaw surgery. She went and saw a specialized doctor in [place]. She got a mouthguard for at night and has had it for 2 weeks and is not sure what she thinks of it. when she wears it,s he has to keep moving her jaw and has bite plates to reset her bite after . 1x/week she wears her old nightguard. She is waiting to do another sleep study. She is in a lot of stress currently and in December, she had a weird thing happen wehre seh felt like she wasn't really there. It was kind of how she felt after her covid vaccine. She started feeling worse and layed down where dizzy and nauseated. It got bad enough that she talked to her friend who was a nurse and 911 was called. Vitals were checked by EMT and told she was having a panic attack. She saw her primary the next day. Sometimes it feels like she is carrying so much overwhelm that it becomes beyond what her body can handle. She is seeing counselor. Has had head pressure when bends over also . She has had imaging of brain and nothing showed. Her head aches, but she doesn't have DANIEL often. She does have neck pain and sometimes when she wakes up, she can hardly move it. She is seeing a chiro which helps her neck but hasn' t changed the head pressure or the ear clearing. EKG has been done by EMT and looked normal. Pt reports L ankle occ feels difficulty w/down stairs and just feels tight down L leg. 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 Treatment Goals Patient/Caregiver Goals improve ear ability to clear, jaw tension PT-OP-T Assessment and Plan Start: 01/29/24 11:36 Freq: Status: Active Protocol: Document 05/18/24 13:51 [facility] (Rec: 05/18/24 16:44 [facility] [id number]) Physical Therapy Assessment Goals ankle ROM Short Term Goal (STG) Pt will improve DF to neutral in knee ext position to dec strain on heel B STG Duration 06/20 [facility] Goal (LTG) Pt will have DF to at least 5 deg in knee ext B and at least 8 deg in knee flex position B to allow for normal gait mehcanics LTG Duration 10/10 foot [facility] Goal (LTG) Pt will report no pain greater than 2/10 when first getting up in AM and after sitting extended in heel LTG Duration 10/10 pain [facility] Goal (LTG) Pt will report a 75% decrease in feeling of head, neck and jaw tension in order to participate in daily life w/ less difficulty 05/18-has had a lot of stress, feels like neck has improved. unsure about jaw LTG Duration 10/10 ROM Short Term Goal (STG) pt will have at least 35 mm of opening of jaw w/o inc jaw tension 03/24/24: jaw 34cm arrival, not pain but feel clunk on R. 05/18-mild tightness 34 mm STG Duration 06/03 [facility] Goal (LTG) Pt will have full cervical ROM w/o inc pain or feeling off 05/18 improved significnat LTG Duration 07/21 ear [facility] Goal (LTG) Pt will report dec ear tension and symptoms w/o inc discomfort when driving and changing elevations. 05/18 improved overall but still limited LTG Duration 08/10 Assessment Summary Assessment Pt returns from vacation w/new referral from provider to onset of L heel pain after a mistep when on vacation that appears like tightness d/t dec ankle mobility on L>R. She has made progress w/jaw and neck mobility, and some mild dec ear plugged sensation w/PT . Cont w/PT for neck/jaw and ear discomfort along w/start PT for L heel pain. Physical Therapy Plan Frequency and Duration Frequency of Treatment 1-2x/wk Duration of treatment (weeks) 12 Plan of Care Start Date 05/18/24 Plan of Care End Date 08/10/24 Therapeutic Interventions Therapeutic Interventions Canalithic Repositioning,Home Exercise Program,Joint Mobilizations,Manual Therapy, Neuromuscular Re-education, Patient/Caregiver Education, Self-Care/Home Management,Soft Tissue Mobilization,Taping, Therapeutic Activities, Therapeutic Exercises, Vestibular Rehabilitation Modalities Cold Pack/Ice Massage,Electric Stimulation,Hot Packs, Infrared Therapy,Traction- Mechanical,Ultrasound Next Visit Focus/Plan Next Note Type Treatment Note Next Visit Plan cont to work on jaw motion & upper cervical mobility; STM to calf and ankle/foot jt mobs , try kt taping but avoid foot cut Plan of Care Dates Plan of Care Start Date 05/18/24 Plan of Care End Date 08/10/24 Electronically Signed by: China Aguirre, PT 05/18/24 9782 If you are in agreement with this Plan of Care, please return a signed and dated copy. I have reviewed this Plan of Care and certify that the skilled therapy services above are required to meet the patient?s needs. Physician Signature Date Printed Name and Credentials Clinical Instructor Signature Printed Name and Credentials
--- NOTE | 2024-05-20 09:45 | PT.OTN ---
Current Diagnoses Unspecified Eustachian tube disorder, bilateral (05/20/24) Arthropathy of bilateral temporomandibular joint (05/20/24) Plantar fascial fibromatosis (05/20/24) Fibromyalgia (05/20/24) Physical Therapy Treatment Note PT-OP-A Visit Information Start: 01/29/24 11:36 Freq: Status: Active Protocol: Document 05/20/24 09:03 SP (Rec: 05/20/24 09:50 SP [id number]) Out-Patient Physical Therapy Visit Information Visit Information Visit Type Treatment Note Visit Note 11/29 after re-eval Visit Start Time 09:06 Visit Stop Time 09:45 Visit Number 11 Number of GLUING MACHINE ADJUSTER Visits 1 PT-OP-B Current Condition Start: 01/29/24 11:36 Freq: Status: Active Protocol: Document 03/04/24 10:40 [facility] (Rec: 03/04/24 13:48 [facility] [id number]) Current Condition History of Current Condition Onset Date about 1.5 years pt thinks Current Complaints Jaw tension, neck pain, ear unable to clear History of Current Condition Pt has pressure where she can' t clear her ears. L has gotten better and R still can't clear. Eardrum looks normal, hearing normal, no fluid. ENT mentioned poking hole in eardrum . Going up/down hills/ elevation can't get R ear to clear and pressure just builds up. She does have B jaw tension. She has been told she may be a candidate for double jaw surgery. She went and saw a specialized doctor in [place]. She got a mouthguard for at night and has had it for 2 weeks and is not sure what she thinks of it. when she wears it,s he has to keep moving her jaw and has bite plates to reset her bite after . 1x/week she wears her old nightguard. She is waiting to do another sleep study. She is in a lot of stress currently and in December, she had a weird thing happen weshawn carrera felt like she wasn't really there. It was kind of how she felt after her covid vaccine. She started feeling worse and layed down where dizzy and nauseated. It got bad enough that she talked to her friend who was a nurse and 911 was called. Vitals were checked by EMT and told she was having a panic attack. She saw her primary the next day. Sometimes it feels like she is carrying so much overwhelm that it becomes beyond what her body can handle. She is seeing counselor. Has had head pressure when bends over also . She has had imaging of brain and nothing showed. Her head aches, but she doesn't have DANIEL often. She does have neck pain and sometimes when she wakes up, she can hardly move it. She is seeing a chiro which helps her neck but hasn' t changed the head pressure or the ear clearing. EKG has been done by EMT and looked normal. Pt reports L ankle occ feels difficulty w/down stairs and just feels tight down L leg. 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 Treatment Goals Patient/Caregiver Goals improve ear ability to clear, jaw tension PT-OP-C Subjective Start: 01/29/24 11:36 Freq: Status: Active Protocol: Document 05/20/24 09:03 SP (Rec: 05/20/24 09:50 SP [id number]) OP-PT Subjective Patient Comments Patient Comments Pt reported sees a improvement in TMJ mobility and doing self STMs, still having clicking in TMJ but overall improved. PT-OP-F Manual Assessment Start: 01/29/24 11:36 Freq: Status: Active Protocol: Document 03/04/24 10:40 [facility] (Rec: 03/04/24 13:48 [facility] [id number]) Manual Assessments Soft Tissue Assessment Soft Tissue Mobility Assessment tenderness and tightness throguhout neck and cranium Joint Mobility Assessment Joint Mobility Assessment ant shearing TMJ-occ clicking R>L; ant shearing L>R w/jaw opening; post shear R>L w/ closing PT-OP-J Posture/Palpation/Skin Start: 01/29/24 11:36 Freq: Status: Active Protocol: Document 03/04/24 10:40 [facility] (Rec: 03/04/24 13:48 [facility] [id number]) Posture Evaluation Roldan Postural Classification System Roldan Postural Classifications Posterior/Anterior Comments Posture Comments head R SB; R scap >L abd, L shoulder higher, fwd head, inc thoracic kyphosis PT-OP-K Range of Motion Start: 01/29/24 11:36 Freq: Status: Active Protocol: Document 05/18/24 13:51 [facility] (Rec: 05/18/24 16:44 [facility] [id number]) Cervical Spine Range of Motion Cervical Spine Active Degrees Flexion 68 Extension 48 Rotation Left 58 Rotation Right 61 Lateral Flexion Left 35 Lateral Flexion Right 38 Comments stiff on R w/R SB and tight L TMJ Range of Motion Jaw Openning Jaw Openning (mm) 34 Ankle and Foot Goniometric Range of Motion Ankle and Foot Right Active Dorsiflexion with Knee Extended 5 Comments lacking DF to neutral in knee ext position Left Active Dorsiflexion with Knee Flexed 3 Plantarflexion 65 Inversion 32 Eversion 22 Comments pain DF and inversion lacking DF to neutral in knee ext position PT-OP-L Special Tests Start: 01/29/24 11:36 Freq: Status: Active Protocol: Document 03/04/24 10:40 [facility] (Rec: 03/04/24 13:48 [facility] [id number]) Special Tests Cervical Spine Special Tests cranial n screen Test Results neg except some saccades noted w/smooth pursuit atlas/axis shear Test Results neg tectoral membrane Test Results neg arterial screening Test Results position screen neg Comments BP:168/68; ausciltation of carotid and heart WNL Alar Ligament Test Results neg spurling Test Results neg-just pressure Traction Test Results relief-dec pressure PT-OP-M Strength Start: 01/29/24 11:36 Freq: Status: Active Protocol: Document 05/18/24 13:51 [facility] (Rec: 05/18/24 16:44 [facility] [id number]) Ankle/Foot Strength Ankle and Foot Manual Muscle Testing Left Dorsiflexion (L4) 4+ Good+ Plantarflexion (S1) 2+ Poor+ Inversion 4+ Good+ Eversion (S1) 5 Normal Comments unable to do heel raises Toe Strength Toe Manual Muscle Testing Left Flexion 4 Good Extension 5 Normal Comments all toes PT-OP-Q Treatments Start: 01/29/24 11:36 Freq: Status: Active Protocol: Document 05/20/24 09:03 SP (Rec: 05/20/24 09:50 SP [id number]) Therapeutic Exercises Standing Exercises ankle mobility Standing Exercise Name disussed ankle & knee AROM to decreased ankle and calf tension Side left Comments not performed but verbalized understanding end tx- recheck next tx Manual Therapy Treatment Soft Tissue Mobilization L foot Body Location plantarfascia Mobilization Type Myofascial Release,Strumming Intensity/Depth Moderate Body Position Hooklying Comments good feedback tension reduction, ed self STMs rolling foot over bouncy/ tennis/golf ball. neck Body Location R>L suboccipitals, UT, SCM, scalene, LS Mobilization Type Rolling,Sustained Pressure, Other Intensity/Depth Moderate Body Position Hooklying Comments cued breath and ROM open close jaw, head nods, ed self use theracane - continue use in PT next tx. jaw Body Location B masseter, R med pterygoid, R digastric Mobilization Type Rolling,Sustained Pressure, Other Intensity/Depth Moderate head Body Location B cranium fascia R more Mobilization Type Sustained Pressure Intensity/Depth Superficial Comments good feedback reduction tension Taping Ktaping Body Location Plantar fascia Type of Tape Kinesio Tape Skin Inspection normal color, intact Comments 1 vertical with plantarfascia and smaller horizontal assist arch lift (not over anterior foot due to sink sensitivity). Good understanding trial up to 2 hrs, 4, up to 4 days if feels ok and no adverse affects for plantar fascia/ arch support. Good feedback less tension in foot leaving. PT-OP-R Modalities Start: 01/29/24 11:36 Freq: Status: Active Protocol: Document 04/27/24 15:57 [facility] (Rec: 04/27/24 16:42 [facility] [id number]) Hot Pack/Cold Pack Treatment Cold Pack Location cervical Patient Position Hooklying PT-OP-T Assessment and Plan Start: 01/29/24 11:36 Freq: Status: Active Protocol: Document 05/20/24 09:03 SP (Rec: 05/20/24 09:50 SP [id number]) Physical Therapy Assessment Goals ankle ROM Short Term Goal (STG) Pt will improve DF to neutral in knee ext position to dec strain on heel B STG Duration 06/20 [facility] Goal (LTG) Pt will have DF to at least 5 deg in knee ext B and at least 8 deg in knee flex position B to allow for normal gait mehcanics LTG Duration 10/10 foot [facility] Goal (LTG) Pt will report no pain greater than 2/10 when first getting up in AM and after sitting extended in heel LTG Duration 10/10 pain [facility] Goal (LTG) Pt will report a 75% decrease in feeling of head, neck and jaw tension in order to participate in daily life w/ less difficulty 05/18-has had a lot of stress, feels like neck has improved. unsure about jaw LTG Duration 07/29 ROM Short Term Goal (STG) pt will have at least 35 mm of opening of jaw w/o inc jaw tension 03/24/24: jaw 34cm arrival, not pain but feel clunk on R. 05/18-mild tightness 34 mm STG Duration 06/03 Speech And Language Tutor Goal (LTG) Pt will have full cervical ROM w/o inc pain or feeling off 05/18 improved significnat LTG Duration 07/21 ear Speech And Language Tutor Goal (LTG) Pt will report dec ear tension and symptoms w/o inc discomfort when driving and changing elevations. 05/18 improved overall but still limited LTG Duration 08/10 Assessment Summary Assessment Pt responded well to manual to head, neck and TMJ R>L ( reported felt less full in R ear) and L plantar fascis tension reduction. Verbalized understanding self STMs and recommendation continue open/ close resisted TMJ ex to support stability. Good response to Ktaping plantar fascia, good understanding remove if adverse affects. Pt would benefit from ankle mobiltiy and strengthening, will progress in PT. Physical Therapy Plan Frequency and Duration Frequency of Treatment 1-2x/wk Duration of treatment (weeks) 12 Plan of Care Start Date 05/18/24 Plan of Care End Date 08/10/24 Therapeutic Interventions Therapeutic Interventions Canalithic Repositioning,Home Exercise Program,Joint Mobilizations,Manual Therapy, Neuromuscular Re-education, Patient/Caregiver Education, Self-Care/Home Management,Soft Tissue Mobilization,Taping, Therapeutic Activities, Therapeutic Exercises, Vestibular Rehabilitation Modalities Cold Pack/Ice Massage,Electric Stimulation,Hot Packs, Infrared Therapy,Traction- Mechanical,Ultrasound Next Visit Focus/Plan Next Note Type Treatment Note Next Visit Plan Add ankle strengthening and Theracane, review calf & plantar fascia stretching and self STMs. POC: cont to work on jaw motion & upper cervical mobility; STM to calf and ankle/foot jt mobs, try kt taping but avoid foot cut
--- NOTE | 2024-05-25 14:30 | PT.OTN ---
Current Diagnoses Unspecified Eustachian tube disorder, bilateral (05/25/24) Arthropathy of bilateral temporomandibular joint (05/25/24) Plantar fascial fibromatosis (05/25/24) Fibromyalgia (05/25/24) Physical Therapy Treatment Note PT-OP-A Visit Information Start: 01/29/24 11:36 Freq: Status: Active Protocol: Document 05/25/24 13:51 SP (Rec: 05/25/24 14:33 SP [id number]) Out-Patient Physical Therapy Visit Information Visit Information Visit Type Treatment Note Visit Note 12/27 after re-eval Visit Start Time 13:51 Visit Stop Time 14:30 Visit Number 12 Number of INDUSTRIAL SPRAYPAINTER Visits 2 PT-OP-B Current Condition Start: 01/29/24 11:36 Freq: Status: Active Protocol: Document 03/04/24 10:40 [facility] (Rec: 03/04/24 13:48 [facility] [id number]) Current Condition History of Current Condition Onset Date about 1.5 years pt thinks Current Complaints Jaw tension, neck pain, ear unable to clear History of Current Condition Pt has pressure where she can' t clear her ears. L has gotten better and R still can't clear. Eardrum looks normal, hearing normal, no fluid. ENT mentioned poking hole in eardrum . Going up/down hills/ elevation can't get R ear to clear and pressure just builds up. She does have B jaw tension. She has been told she may be a candidate for double jaw surgery. She went and saw a specialized doctor in [place]. She got a mouthguard for at night and has had it for 2 weeks and is not sure what she thinks of it. when she wears it,s he has to keep moving her jaw and has bite plates to reset her bite after . 1x/week she wears her old nightguard. She is waiting to do another sleep study. She is in a lot of stress currently and in December, she had a weird thing happen weshawn carrera felt like she wasn't really there. It was kind of how she felt after her covid vaccine. She started feeling worse and layed down where dizzy and nauseated. It got bad enough that she talked to her friend who was a nurse and 911 was called. Vitals were checked by EMT and told she was having a panic attack. She saw her primary the next day. Sometimes it feels like she is carrying so much overwhelm that it becomes beyond what her body can handle. She is seeing counselor. Has had head pressure when bends over also . She has had imaging of brain and nothing showed. Her head aches, but she doesn't have DANIEL often. She does have neck pain and sometimes when she wakes up, she can hardly move it. She is seeing a chiro which helps her neck but hasn' t changed the head pressure or the ear clearing. EKG has been done by EMT and looked normal. Pt reports L ankle occ feels difficulty w/down stairs and just feels tight down L leg. 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 Treatment Goals Patient/Caregiver Goals improve ear ability to clear, jaw tension PT-OP-C Subjective Start: 01/29/24 11:36 Freq: Status: Active Protocol: Document 05/25/24 13:51 SP (Rec: 05/25/24 14:33 SP [id number]) OP-PT Subjective Patient Comments Patient Comments Pt reports taping arch support was ok no adverse reactions but not sure helped, came off. Is doing AROM and stretching L ankle. Really hurting today. TMJ ok, little sore but L foot over focused. PT-OP-F Manual Assessment Start: 01/29/24 11:36 Freq: Status: Active Protocol: Document 03/04/24 10:40 [facility] (Rec: 03/04/24 13:48 [facility] [id number]) Manual Assessments Soft Tissue Assessment Soft Tissue Mobility Assessment tenderness and tightness throguhout neck and cranium Joint Mobility Assessment Joint Mobility Assessment ant shearing TMJ-occ clicking R>L; ant shearing L>R w/jaw opening; post shear R>L w/ closing PT-OP-J Posture/Palpation/Skin Start: 01/29/24 11:36 Freq: Status: Active Protocol: Document 03/04/24 10:40 [facility] (Rec: 03/04/24 13:48 [facility] [id number]) Posture Evaluation Roldan Postural Classification System Roldan Postural Classifications Posterior/Anterior Comments Posture Comments head R SB; R scap >L abd, L shoulder higher, fwd head, inc thoracic kyphosis PT-OP-K Range of Motion Start: 01/29/24 11:36 Freq: Status: Active Protocol: Document 05/18/24 13:51 [facility] (Rec: 05/18/24 16:44 [facility] [id number]) Cervical Spine Range of Motion Cervical Spine Active Degrees Flexion 68 Extension 48 Rotation Left 58 Rotation Right 61 Lateral Flexion Left 35 Lateral Flexion Right 38 Comments stiff on R w/R SB and tight L TMJ Range of Motion Jaw Openning Jaw Openning (mm) 34 Ankle and Foot Goniometric Range of Motion Ankle and Foot Right Active Dorsiflexion with Knee Extended 5 Comments lacking DF to neutral in knee ext position Left Active Dorsiflexion with Knee Flexed 3 Plantarflexion 65 Inversion 32 Eversion 22 Comments pain DF and inversion lacking DF to neutral in knee ext position PT-OP-L Special Tests Start: 01/29/24 11:36 Freq: Status: Active Protocol: Document 03/04/24 10:40 [facility] (Rec: 03/04/24 13:48 [facility] [id number]) Special Tests Cervical Spine Special Tests cranial n screen Test Results neg except some saccades noted w/smooth pursuit atlas/axis shear Test Results neg tectoral membrane Test Results neg arterial screening Test Results position screen neg Comments BP:168/68; ausciltation of carotid and heart WNL Alar Ligament Test Results neg spurling Test Results neg-just pressure Traction Test Results relief-dec pressure PT-OP-M Strength Start: 01/29/24 11:36 Freq: Status: Active Protocol: Document 05/18/24 13:51 [facility] (Rec: 05/18/24 16:44 [facility] [id number]) Ankle/Foot Strength Ankle and Foot Manual Muscle Testing Left Dorsiflexion (L4) 4+ Good+ Plantarflexion (S1) 2+ Poor+ Inversion 4+ Good+ Eversion (S1) 5 Normal Comments unable to do heel raises Toe Strength Toe Manual Muscle Testing Left Flexion 4 Good Extension 5 Normal Comments all toes PT-OP-Q Treatments Start: 01/29/24 11:36 Freq: Status: Active Protocol: Document 05/25/24 13:51 SP (Rec: 05/25/24 14:33 SP [id number]) Therapeutic Exercises Sitting Exercises self STMs Sitting Exercise Name L medial heel massage hands and use tool Resistance utilized maik tool Comments good feedback myofascial tension reduction calf stretch Sitting Exercise Name trailed in PT Side left Resistance use towel Reps/Minutes 20- 30 SH Comments good stretch eversion lateral foot Sitting Exercise Name future appt- side foot lift ankle 4 way Sitting Exercise Name added to HEP: PF, DF, EV, IV Side left Resistance TB #1 peach Reps/Minutes 10 each Comments pnfree arch lift Sitting Exercise Name added to HEP-declined HO Side left Resistance AROM Reps/Minutes 3-5 SH x5 Comments pnfree reported Manual Therapy Treatment Soft Tissue Mobilization L foot Body Location plantarfascia, medial calcaneus back of arch Mobilization Type Instrument Assisted,Myofascial Release,Strumming Intensity/Depth Moderate Body Position Hooklying Comments manual STMs with good feedback tension reduction, ed self STMs use maik tool Tib and medial arch/heel Joint Mobilizations L ankle Joint L Taping Ktaping Body Location Plantar fascia and arch > medial/lat ankle to mid rosen coleen med/lat Type of Tape Kinesio Tape Skin Inspection normal color, intact Comments 2 strips arch superior med/lat lower leg to mid rosen. Improved support but not stop heel/arch pain when up moving around. PT-OP-R Modalities Start: 01/29/24 11:36 Freq: Status: Active Protocol: Document 04/27/24 15:57 [facility] (Rec: 04/27/24 16:42 [facility] [id number]) Hot Pack/Cold Pack Treatment Cold Pack Location cervical Patient Position Hooklying PT-OP-T Assessment and Plan Start: 01/29/24 11:36 Freq: Status: Active Protocol: Document 05/25/24 13:51 SP (Rec: 05/25/24 14:33 SP [id number]) Physical Therapy Assessment Goals ankle ROM Short Term Goal (STG) Pt will improve DF to neutral in knee ext position to dec strain on heel B STG Duration 06/20 Snf Goal (LTG) Pt will have DF to at least 5 deg in knee ext B and at least 8 deg in knee flex position B to allow for normal gait mehcanics LTG Duration 10/10 foot Snf Goal (LTG) Pt will report no pain greater than 2/10 when first getting up in AM and after sitting extended in heel LTG Duration 10/10 pain Snf Goal (LTG) Pt will report a 75% decrease in feeling of head, neck and jaw tension in order to participate in daily life w/ less difficulty 05/18-has had a lot of stress, feels like neck has improved. unsure about jaw LTG Duration 07/29 ROM Short Term Goal (STG) pt will have at least 35 mm of opening of jaw w/o inc jaw tension 03/24/24: jaw 34cm arrival, not pain but feel clunk on R. 05/18-mild tightness 34 mm STG Duration 06/03 Snf Goal (LTG) Pt will have full cervical ROM w/o inc pain or feeling off 05/18 improved significnat LTG Duration 07/21 ear Snf Goal (LTG) Pt will report dec ear tension and symptoms w/o inc discomfort when driving and changing elevations. 05/18 improved overall but still limited LTG Duration 08/10 Assessment Summary Assessment Pt good tolerance and response to manual to L ankle, ed for self carryover seated beneficial. Initiated L foot and ankle strengthening today with no adverse affects reported. Provided Ktaping arch inferiorly to mid med/lat lower leg, understands wearing time and remove if adverse affects. Pt reported still having pain L arch end tx but less than when arrived. Physical Therapy Plan Frequency and Duration Frequency of Treatment 1-2x/wk Duration of treatment (weeks) 12 Plan of Care Start Date 05/18/24 Plan of Care End Date 08/10/24 Therapeutic Interventions Therapeutic Interventions Canalithic Repositioning,Home Exercise Program,Joint Mobilizations,Manual Therapy, Neuromuscular Re-education, Patient/Caregiver Education, Self-Care/Home Management,Soft Tissue Mobilization,Taping, Therapeutic Activities, Therapeutic Exercises, Vestibular Rehabilitation Modalities Cold Pack/Ice Massage,Electric Stimulation,Hot Packs, Infrared Therapy,Traction- Mechanical,Ultrasound Next Visit Focus/Plan Next Note Type Treatment Note Next Visit Plan recheck: Added ankle strengthening review calf & plantar fascia stretching and self STMs. and Theracane neck for self tension reduction. POC: cont to work on jaw motion & upper cervical mobility; STM to calf and ankle/foot jt mobs, try kt taping but avoid foot cut
--- NOTE | 2024-06-24 15:20 | PT.OTN ---
Current Diagnoses Unspecified Eustachian tube disorder, bilateral (06/24/24) Arthropathy of bilateral temporomandibular joint (06/24/24) Plantar fascial fibromatosis (06/24/24) Fibromyalgia (06/24/24) Physical Therapy Treatment Note PT-OP-A Visit Information Start: 01/29/24 11:36 Freq: Status: Active Protocol: Document 06/24/24 09:41 [facility] (Rec: 06/24/24 15:20 [facility] [id number]) Out-Patient Physical Therapy Visit Information Visit Information Visit Type Treatment Note Visit Note 01/27 after re-eval Visit Start Time 09:49 Visit Stop Time 10:30 Visit Number 13 Number of BAG HANGER Visits 0 PT-OP-B Current Condition Start: 01/29/24 11:36 Freq: Status: Active Protocol: Document 03/04/24 10:40 [facility] (Rec: 03/04/24 13:48 [facility] [id number]) Current Condition History of Current Condition Onset Date about 1.5 years pt thinks Current Complaints Jaw tension, neck pain, ear unable to clear History of Current Condition Pt has pressure where she can' t clear her ears. L has gotten better and R still can't clear. Eardrum looks normal, hearing normal, no fluid. ENT mentioned poking hole in eardrum . Going up/down hills/ elevation can't get R ear to clear and pressure just builds up. She does have B jaw tension. She has been told she may be a candidate for double jaw surgery. She went and saw a specialized doctor in [place]. She got a mouthguard for at night and has had it for 2 weeks and is not sure what she thinks of it. when she wears it,s he has to keep moving her jaw and has bite plates to reset her bite after . 1x/week she wears her old nightguard. She is waiting to do another sleep study. She is in a lot of stress currently and in December, she had a weird thing happen weshawn carrera felt like she wasn't really there. It was kind of how she felt after her covid vaccine. She started feeling worse and layed down where dizzy and nauseated. It got bad enough that she talked to her friend who was a nurse and 911 was called. Vitals were checked by EMT and told she was having a panic attack. She saw her primary the next day. Sometimes it feels like she is carrying so much overwhelm that it becomes beyond what her body can handle. She is seeing counselor. Has had head pressure when bends over also . She has had imaging of brain and nothing showed. Her head aches, but she doesn't have DANIEL often. She does have neck pain and sometimes when she wakes up, she can hardly move it. She is seeing a chiro which helps her neck but hasn' t changed the head pressure or the ear clearing. EKG has been done by EMT and looked normal. Pt reports L ankle occ feels difficulty w/down stairs and just feels tight down L leg. 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 Treatment Goals Patient/Caregiver Goals improve ear ability to clear, jaw tension PT-OP-C Subjective Start: 01/29/24 11:36 Freq: Status: Active Protocol: Document 06/24/24 09:41 [facility] (Rec: 06/24/24 15:20 [facility] [id number]) OP-PT Subjective Patient Comments Patient Comments Feels like the heel is getting better but still painful and feeling a lot of lat strain in R lat leg. It is worst when sitting then getting back up. Has been gone a lot so doing a lot of the stair stretches. PT-OP-F Manual Assessment Start: 01/29/24 11:36 Freq: Status: Active Protocol: Document 03/04/24 10:40 [facility] (Rec: 03/04/24 13:48 [facility] [id number]) Manual Assessments Soft Tissue Assessment Soft Tissue Mobility Assessment tenderness and tightness throguhout neck and cranium Joint Mobility Assessment Joint Mobility Assessment ant shearing TMJ-occ clicking R>L; ant shearing L>R w/jaw opening; post shear R>L w/ closing PT-OP-J Posture/Palpation/Skin Start: 01/29/24 11:36 Freq: Status: Active Protocol: Document 03/04/24 10:40 [facility] (Rec: 03/04/24 13:48 [facility] [id number]) Posture Evaluation Roldan Postural Classification System Roldan Postural Classifications Posterior/Anterior Comments Posture Comments head R SB; R scap >L abd, L shoulder higher, fwd head, inc thoracic kyphosis PT-OP-K Range of Motion Start: 01/29/24 11:36 Freq: Status: Active Protocol: Document 05/18/24 13:51 [facility] ([facility]18[facility]24 [id number] Cervical Spine Range of Motion Cervical Spine Active Degrees Flexion 68 Extension 48 Rotation Left 58 Rotation Right 61 Lateral Flexion Left 35 Lateral Flexion Right 38 Comments stiff on R w/R SB and tight L TMJ Range of Motion Jaw Openning Jaw Openning (mm) 34 Ankle and Foot Goniometric Range of Motion Ankle and Foot Right Active Dorsiflexion with Knee Extended 5 Comments lacking DF to neutral in knee ext position Left Active Dorsiflexion with Knee Flexed 3 Plantarflexion 65 Inversion 32 Eversion 22 Comments pain DF and inversion lacking DF to neutral in knee ext position PT-OP-L Special Tests Start: 01/29/24 11:36 Freq: Status: Active Protocol: Document 03/04/24 10:40 [facility] (Rec: 03/04/24 13:48 [id number] Special Tests Cervical Spine Special Tests cranial n screen Test Results neg except some saccades noted w/smooth pursuit atlas/axis shear Test Results neg tectoral membrane Test Results neg arterial screening Test Results position screen neg Comments BP:168/68; ausciltation of carotid and heart WNL Alar Ligament Test Results neg spurling Test Results neg-just pressure Traction Test Results relief-dec pressure PT-OP-M Strength Start: 01/29/24 11:36 Freq: Status: Active Protocol: Document 05/18/24 13:51 [facility] (Rec: 05/18/24 16:44 [facility] [id number]) Ankle/Foot Strength Ankle and Foot Manual Muscle Testing Left Dorsiflexion (L4) 4+ Good+ Plantarflexion (S1) 2+ Poor+ Inversion 4+ Good+ Eversion (S1) 5 Normal Comments unable to do heel raises Toe Strength Toe Manual Muscle Testing Left Flexion 4 Good Extension 5 Normal Comments all toes PT-OP-Q Treatments Start: 01/29/24 11:36 Freq: Status: Active Protocol: Document 06/24/24 09:41 [facility] (Rec: 06/24/24 15:20 [facility] [id number]) Therapeutic Exercises Sitting Exercises calf stretch Sitting Exercise Name trailed in PT Side left Resistance use towel Reps/Minutes 30 Sec Comments good stretch ankle 4 way Sitting Exercise Name added to HEP: PF, DF, EV, IV Side left Resistance L2 Reps/Minutes 8 ea Comments pnfree arch lift Sitting Exercise Name review HEP Side left Resistance AROM Reps/Minutes 3 SH x6 Comments pnfree reported Standing Exercises ankle mobility Standing Exercise Name heel raises DL Side bilateral Reps/Minutes 5 stretch Standing Exercise Name 1.standing gastroc and soleus fwd lean2. DL stair gastroc Side bilateral Reps/Minutes 30 sec ea Manual Therapy Treatment Consent Patient gave verbal consent for manual Yes treatment Soft Tissue Mobilization lower leg Body Location R peroneals Mobilization Type Rolling Intensity/Depth Moderate Body Position Supine calf Body Location L Mobilization Type Rolling Intensity/Depth Moderate Body Position Supine Joint Mobilizations L ankle Comments R fibula sup and AP proximal L calcaneus distraction & lat tilt FM AP talus L FM PT-OP-R Modalities Start: 01/29/24 11:36 Freq: Status: Active Protocol: Document 04/27/24 15:57 [facility] (Rec: 04/27/24 16:42 [facility] [id number]) Hot Pack/Cold Pack Treatment Cold Pack Location cervical Patient Position Hooklying PT-OP-T Assessment and Plan Start: 01/29/24 11:36 Freq: Status: Active Protocol: Document 06/24/24 09:41 [facility] (Rec: 06/24/24 15:20 [facility] [id number]) Physical Therapy Assessment Goals ankle ROM Short Term Goal (STG) Pt will improve DF to neutral in knee ext position to dec strain on heel B STG Duration 06/20 Long-Term Goal (LTG) Pt will have DF to at least 5 deg in knee ext B and at least 8 deg in knee flex position B to allow for normal gait mehcanics LTG Duration 10/10 foot Fixed Route Operator Goal (LTG) Pt will report no pain greater than 2/10 when first getting up in AM and after sitting extended in heel LTG Duration 10/10 pain Fixed Route Operator Goal (LTG) Pt will report a 75% decrease in feeling of head, neck and jaw tension in order to participate in daily life w/ less difficulty 05/18-has had a lot of stress, feels like neck has improved. unsure about jaw LTG Duration 10/10 ROM Short Term Goal (STG) pt will have at least 35 mm of opening of jaw w/o inc jaw tension 03/24/24: jaw 34cm arrival, not pain but feel clunk on R. 05/18-mild tightness 34 mm STG Duration 06/03 Long-Term Goal (LTG) Pt will have full cervical ROM w/o inc pain or feeling off 05/18 improved significnat LTG Duration 07/21 ear Fixed Route Operator Goal (LTG) Pt will report dec ear tension and symptoms w/o inc discomfort when driving and changing elevations. 05/18 improved overall but still limited LTG Duration 08/10 Assessment Summary Assessment Pt requires cues throughout all exercises in session today . Encouraged to stretch calves multiple times a day. She had imporved B ankle motion w/ manual Physical Therapy Plan Frequency and Duration Frequency of Treatment 1-2x/wk Duration of treatment (weeks) 12 Plan of Care Start Date 05/18/24 Plan of Care End Date 08/10/24 Next Visit Focus/Plan Next Note Type Treatment Note Next Visit Plan recheck: Added ankle strengthening review calf & plantar fascia stretching and self STMs. and Theracane neck for self tension reduction. POC: cont to work on jaw motion & upper cervical mobility; STM to calf and ankle/foot jt mobs, try kt taping but avoid foot cut
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
--- NOTE | 2024-07-14 10:42 | PT.OTN ---
Current Diagnoses Unspecified Eustachian tube disorder, bilateral (07/14/24) Arthropathy of bilateral temporomandibular joint (07/14/24) Plantar fascial fibromatosis (07/14/24) Fibromyalgia (07/14/24) Physical Therapy Treatment Note PT-OP-A Visit Information Start: 01/29/24 11:36 Freq: Status: Active Protocol: Document 07/14/24 09:45 SP (Rec: 07/14/24 10:36 SP [id number]) Out-Patient Physical Therapy Visit Information Visit Information Visit Type Treatment Note Visit Note 03/29 after re-eval Visit Start Time 09:45 Visit Stop Time 10:42 Visit Number 15 Number of SPA ASSISTANT MANAGER Visits 2 PT-OP-B Current Condition Start: 01/29/24 11:36 Freq: Status: Active Protocol: Document 03/04/24 10:40 [facility] (Rec: 03/04/24 13:48 [facility] [id number]) Current Condition History of Current Condition Onset Date about 1.5 years pt thinks Current Complaints Jaw tension, neck pain, ear unable to clear History of Current Condition Pt has pressure where she can' t clear her ears. L has gotten better and R still can't clear. Eardrum looks normal, hearing normal, no fluid. ENT mentioned poking hole in eardrum . Going up/down hills/ elevation can't get R ear to clear and pressure just builds up. She does have B jaw tension. She has been told she may be a candidate for double jaw surgery. She went and saw a specialized doctor in [place]. She got a mouthguard for at night and has had it for 2 weeks and is not sure what she thinks of it. when she wears it,s he has to keep moving her jaw and has bite plates to reset her bite after . 1x/week she wears her old nightguard. She is waiting to do another sleep study. She is in a lot of stress currently and in December, she had a weird thing happen weshawn carrera felt like she wasn't really there. It was kind of how she felt after her covid vaccine. She started feeling worse and layed down where dizzy and nauseated. It got bad enough that she talked to her friend who was a nurse and 911 was called. Vitals were checked by EMT and told she was having a panic attack. She saw her primary the next day. Sometimes it feels like she is carrying so much overwhelm that it becomes beyond what her body can handle. She is seeing counselor. Has had head pressure when bends over also . She has had imaging of brain and nothing showed. Her head aches, but she doesn't have DANIEL often. She does have neck pain and sometimes when she wakes up, she can hardly move it. She is seeing a chiro which helps her neck but hasn' t changed the head pressure or the ear clearing. EKG has been done by EMT and looked normal. Pt reports L ankle occ feels difficulty w/down stairs and just feels tight down L leg. 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 Treatment Goals Patient/Caregiver Goals improve ear ability to clear, jaw tension PT-OP-C Subjective Start: 01/29/24 11:36 Freq: Status: Active Protocol: Document 07/14/24 09:45 SP (Rec: 07/14/24 10:36 SP [id number]) OP-PT Subjective Patient Comments Patient Comments Pt reports her L heel still hurts alot, pain not as excruiating slightly better. Is the worst when gets up from sleeping or sitting to long. She has been getting more ear pressure fullness R 9/10>L 2/ 10, little worse than before. She states has peach band home but no latex allergy. She keeps trying open jaw to pop ears and wont clear. PT-OP-F Manual Assessment Start: 01/29/24 11:36 Freq: Status: Active Protocol: Document 03/04/24 10:40 [facility] (Rec: 03/04/24 13:48 [facility] [id number]) Manual Assessments Soft Tissue Assessment Soft Tissue Mobility Assessment tenderness and tightness throguhout neck and cranium Joint Mobility Assessment Joint Mobility Assessment ant shearing TMJ-occ clicking R>L; ant shearing L>R w/jaw opening; post shear R>L w/ closing PT-OP-J Posture/Palpation/Skin Start: 01/29/24 11:36 Freq: Status: Active Protocol: Document 03/04/24 10:40 [facility] (Rec: 03/04/24 13:48 [facility] [id number]) Posture Evaluation [facility] Postural Classification System [place] Postural Classifications Posterior/Anterior Comments Posture Comments head R SB; R scap >L abd, L shoulder higher, fwd head, inc thoracic kyphosis PT-OP-K Range of Motion Start: 01/29/24 11:36 Freq: Status: Active Protocol: Document 05/18/24 13:51 [facility] (Rec: 05/18/24 16:44 [facility] [id number]) Cervical Spine Range of Motion Cervical Spine Active Degrees Flexion 68 Extension 48 Rotation Left 58 Rotation Right 61 Lateral Flexion Left 35 Lateral Flexion Right 38 Comments stiff on R w/R SB and tight L TMJ Range of Motion Jaw Openning Jaw Openning (mm) 34 Ankle and Foot Goniometric Range of Motion Ankle and Foot Right Active Dorsiflexion with Knee Extended 5 Comments lacking DF to neutral in knee ext position Left Active Dorsiflexion with Knee Flexed 3 Plantarflexion 65 Inversion 32 Eversion 22 Comments pain DF and inversion lacking DF to neutral in knee ext position PT-OP-L Special Tests Start: 01/29/24 11:36 Freq: Status: Active Protocol: Document 03/04/24 10:40 [facility] (Rec: 03/04/24 13:48 [facility] [id number]) Special Tests Cervical Spine Special Tests cranial n screen Test Results neg except some saccades noted w/smooth pursuit atlas/axis shear Test Results neg tectoral membrane Test Results neg arterial screening Test Results position screen neg Comments BP:168/68; ausciltation of carotid and heart WNL Alar Ligament Test Results neg spurling Test Results neg-just pressure Traction Test Results relief-dec pressure PT-OP-M Strength Start: 01/29/24 11:36 Freq: Status: Active Protocol: Document 05/18/24 13:51 [facility] (Rec: 05/18/24 16:44 [facility] [id number]) Ankle/Foot Strength Ankle and Foot Manual Muscle Testing Left Dorsiflexion (L4) 4+ Good+ Plantarflexion (S1) 2+ Poor+ Inversion 4+ Good+ Eversion (S1) 5 Normal Comments unable to do heel raises Toe Strength Toe Manual Muscle Testing Left Flexion 4 Good Extension 5 Normal Comments all toes PT-OP-Q Treatments Start: 01/29/24 11:36 Freq: Status: Active Protocol: Document 07/14/24 09:45 SP (Rec: 07/14/24 10:36 SP [id number]) Therapeutic Exercises Sitting Exercises calf stretch Sitting Exercise Name Reviewed self HEP Side left Resistance use TB #2 orange vs ed and performance flat sheet Reps/Minutes 30 Sec x2 Comments good calf stretch, non stretch sheet feels more effective ankle 4 way Sitting Exercise Name reviewed HEP: PF, DF, EV, IV Side left Resistance L2 (orange)- needs use of scanned HOs for recall Reps/Minutes 2x10 each Comments pnfree, max cues for set up& directi, ed slower eccentric controlled motion arch lift Sitting Exercise Name review HEP Side left Resistance AROM Reps/Minutes 3 SH x8 Comments pnfree reported, plantar fascia tiring Manual Therapy Treatment Soft Tissue Mobilization L foot Body Location plantarfascia, medial calcaneus back of arch Mobilization Type Instrument Assisted,Myofascial Release,Strumming Intensity/Depth Moderate Body Position Hooklying Comments manual STMs with good feedback tension reduction neck Body Location R>L suboccipitals, SOR, UT, SCM, Mobilization Type Rolling,Sustained Pressure, Other Intensity/Depth Moderate Comments gentle hooklying and L SL, c/ scapulothoracic retraction glides jaw Body Location B masseter, R med pterygoid, R digastric, B temporalis, B ear pull Mobilization Type Myofascial Release,Rolling, Sustained Pressure,Other Intensity/Depth Moderate Body Position Hooklying Comments Gentle STMs intraoral, rolling , sustained gentle/ light pressure open/close mouth. e Joint Mobilizations TMJ Grade II Body Position Hooklying Comments Beau mandible caudal glide, R AP FM w/opening PT-OP-R Modalities Start: 01/29/24 11:36 Freq: Status: Active Protocol: Document 07/14/24 09:45 SP (Rec: 07/14/24 10:36 SP [id number]) Hot Pack/Cold Pack Treatment Cold Pack Location Jaw, R>L Patient Position Hooklying Patient Tolerance Good Comments less R jaw irritation PT-OP-T Assessment and Plan Start: 01/29/24 11:36 Freq: Status: Active Protocol: Document 07/14/24 09:45 SP (Rec: 07/14/24 10:36 SP [id number]) Physical Therapy Assessment Goals ankle ROM Short Term Goal (STG) Pt will improve DF to neutral in knee ext position to dec strain on heel B STG Duration 9/1 Spiritual Advisor Goal (LTG) Pt will have DF to at least 5 deg in knee ext B and at least 8 deg in knee flex position B to allow for normal gait mehcanics LTG Duration 07/29 foot [facility] Goal (LTG) Pt will report no pain greater than 2/10 when first getting up in AM and after sitting extended in heel LTG Duration 07/29 pain [facility] Goal (LTG) Pt will report a 75% decrease in feeling of head, neck and jaw tension in order to participate in daily life w/ less difficulty 05/18-has had a lot of stress, feels like neck has improved. unsure about jaw LTG Duration 07/29 ROM Short Term Goal (STG) pt will have at least 35 mm of opening of jaw w/o inc jaw tension 03/24/24: jaw 34cm arrival, not pain but feel clunk on R. 05/18-mild tightness 34 mm 07/14/24: 33 mm, no pain but mild tightness STG Duration 06/03 updated 07/14/24 Spiritual Advisor Goal (LTG) Pt will have full cervical ROM w/o inc pain or feeling off 05/18 improved significnat LTG Duration 07/21 ear [facility] Goal (LTG) Pt will report dec ear tension and symptoms w/o inc discomfort when driving and changing elevations. 05/18 improved overall but still limited LTG Duration 08/10 Assessment Summary Assessment Pt sensitive to pressure intraoral, adjusted pressure with feedback pnfree. Improved TMJ AROM 33mm>36mm after manual. Provided CP modality for R jaw irritation end tx with reports fullness in R ear 9>8/10 and L not significant stil 2/10. Pt requires max cues for set up and direction performance for ankle HEP and discussed continued performance for progression strength and mobility. Physical Therapy Plan Frequency and Duration Frequency of Treatment 1-2x/wk Duration of treatment (weeks) 12 Plan of Care Start Date 05/18/24 Plan of Care End Date 08/10/24 Therapeutic Interventions Therapeutic Interventions Canalithic Repositioning,Home Exercise Program,Joint Mobilizations,Manual Therapy, Neuromuscular Re-education, Patient/Caregiver Education, Self-Care/Home Management,Soft Tissue Mobilization,Taping, Therapeutic Activities, Therapeutic Exercises, Vestibular Rehabilitation Modalities Cold Pack/Ice Massage,Electric Stimulation,Hot Packs, Infrared Therapy,Traction- Mechanical,Ultrasound Next Visit Focus/Plan Next Note Type Treatment Note Next Visit Plan recheck: Added ankle strengthening review calf & plantar fascia stretching and self STMs. and Theracane neck for self tension reduction. POC: cont to work on jaw motion & upper cervical mobility; STM to calf and ankle/foot jt mobs, try kt taping but avoid foot cut
--- NOTE | 2024-07-21 10:59 | PT.OTN ---
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 (Rec: 07/21/24 10:59 [facility] [id number]) Out-Patient Physical Therapy Visit Information Visit Information Visit Type Progress Note Visit Note 10/29 Visit Start Time 09:51 Visit Stop Time 10:30 Visit Number 16 Number of CAKE WASHER Visits 0 PT-OP-B Current Condition Start: 01/29/24 11:36 Freq: Status: Active Protocol: Document 03/04/24 10:40 [facility] (Rec: 03/04/24 13:48 [facility] [id number]) Current Condition History of Current Condition Onset Date about 1.5 years pt thinks Current Complaints Jaw tension, neck pain, ear unable to clear History of Current Condition Pt has pressure where she can' t clear her ears. L has gotten better and R still can't clear. Eardrum looks normal, hearing normal, no fluid. ENT mentioned poking hole in eardrum . Going up/down hills/ elevation can't get R ear to clear and pressure just builds up. She does have B jaw tension. She has been told she may be a candidate for double jaw surgery. She went and saw a specialized doctor in [place]. She got a mouthguard for at night and has had it for 2 weeks and is not sure what she thinks of it. when she wears it,s he has to keep moving her jaw and has bite plates to reset her bite after . 1x/week she wears her old nightguard. She is waiting to do another sleep study. She is in a lot of stress currently and in December, she had a weird thing happen renetta carrera felt like she wasn't really there. It was kind of how she felt after her covid vaccine. She started feeling worse and layed down where dizzy and nauseated. It got bad enough that she talked to her friend who was a nurse and 911 was called. Vitals were checked by EMT and told she was having a panic attack. She saw her primary the next day. Sometimes it feels like she is carrying so much overwhelm that it becomes beyond what her body can handle. She is seeing counselor. Has had head pressure when bends over also . She has had imaging of brain and nothing showed. Her head aches, but she doesn't have DANIEL often. She does have neck pain and sometimes when she wakes up, she can hardly move it. She is seeing a chiro which helps her neck but hasn' t changed the head pressure or the ear clearing. EKG has been done by EMT and looked normal. Pt reports L ankle occ feels difficulty w/down stairs and just feels tight down L leg. 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 Treatment Goals Patient/Caregiver Goals improve ear ability to clear, jaw tension PT-OP-C Subjective Start: 01/29/24 11:36 Freq: Status: Active Protocol: Document 07/21/24 09:51 [facility] (Rec: 07/21/24 10:59 [facility] [id number]) OP-PT Subjective Patient Comments Patient Comments Pt reports L heel still hurts but ear pressure has been more . Has had a random cough but saw doctor who doesn't think she is sick. Has not been taking flonase or doing an allergy pill. PT-OP-F Manual Assessment Start: 01/29/24 11:36 Freq: Status: Active Protocol: Document 03/04/24 10:40 [facility] (Rec: 03/04/24 13:48 [facility] [id number]) Manual Assessments Soft Tissue Assessment Soft Tissue Mobility Assessment tenderness and tightness throguhout neck and cranium Joint Mobility Assessment Joint Mobility Assessment ant shearing TMJ-occ clicking R>L; ant shearing L>R w/jaw opening; post shear R>L w/ closing PT-OP-J Posture/Palpation/Skin Start: 01/29/24 11:36 Freq: Status: Active Protocol: Document 03/04/24 10:40 [facility] (Rec: 03/04/24 13:48 [facility] [id number]) Posture Evaluation Roldan Postural Classification System Roldan Postural Classifications Posterior/Anterior Comments Posture Comments head R SB; R scap >L abd, L shoulder higher, fwd head, inc thoracic kyphosis PT-OP-K Range of Motion Start: 01/29/24 11:36 Freq: Status: Active Protocol: Document 07/21/24 09:51 [facility] (Rec: 07/21/24 10:59 [facility] [id number]) Cervical Spine Range of Motion Cervical Spine Active Degrees Flexion 64 Extension 55 Rotation Left 60 Rotation Right 65 Lateral Flexion Left 25 Lateral Flexion Right 35 Comments strain to shoulder w/L rot; tight R w/L SB TMJ Range of Motion Jaw Openning Jaw Openning (mm) 28 Comments Comments tight w/opening Ankle and Foot Goniometric Range of Motion Ankle and Foot Right Active Dorsiflexion with Knee Flexed 5 Dorsiflexion with Knee Extended 5 Comments lacking DF to neutral in knee ext position Left Active Dorsiflexion with Knee Flexed 7 Dorsiflexion with Knee Extended 0 Plantarflexion 65 Inversion 39 Eversion 22 Comments strain in heel w/inversion lacking DF to neutral in knee ext position PT-OP-L Special Tests Start: 01/29/24 11:36 Freq: Status: Active Protocol: Document 03/04/24 10:40 [facility] (Rec: 03/04/24 13:48 [facility] [id number]) Special Tests Cervical Spine Special Tests cranial n screen Test Results neg except some saccades noted w/smooth pursuit atlas/axis shear Test Results neg tectoral membrane Test Results neg arterial screening Test Results position screen neg Comments BP:168/68; ausciltation of carotid and heart WNL Alar Ligament Test Results neg spurling Test Results neg-just pressure Traction Test Results relief-dec pressure PT-OP-M Strength Start: 01/29/24 11:36 Freq: Status: Active Protocol: Document 05/18/24 13:51 [facility] (Rec: 05/18/24 16:44 [facility] [id number]) Ankle/Foot Strength Ankle and Foot Manual Muscle Testing Left Dorsiflexion (L4) 4+ Good+ Plantarflexion (S1) 2+ Poor+ Inversion 4+ Good+ Eversion (S1) 5 Normal Comments unable to do heel raises Toe Strength Toe Manual Muscle Testing Left Flexion 4 Good Extension 5 Normal Comments all toes PT-OP-Q Treatments Start: 01/29/24 11:36 Freq: Status: Active Protocol: Document 07/21/24 09:51 [facility] (Rec: 07/21/24 10:59 [facility] [id number]) Therapeutic Exercises Sitting Exercises jaw Sitting Exercise Name jaw opening stretch Reps/Minutes 30sec Other Exercises ROM Other Exercise Name cervical, jaw, ankleB Manual Therapy Treatment Consent Patient gave verbal consent for manual Yes treatment Soft Tissue Mobilization calf Body Location L achilles Mobilization Type Myofascial Release,Rolling Comments w/DF neck Body Location R>L suboccipitals, SOR, UT, SCM Mobilization Type Rolling,Sustained Pressure, Other Intensity/Depth Moderate Comments w/gentle cervical rot jaw Body Location B masseter, R med pterygoid, R digastric, B temporalis Mobilization Type Myofascial Release,Rolling, Sustained Pressure Intensity/Depth Moderate Body Position Hooklying Joint Mobilizations TMJ Comments B distraction c/r w/opening PT-OP-R Modalities Start: 01/29/24 11:36 Freq: Status: Active Protocol: Document 07/14/24 09:45 [facility] (Rec: 07/14/24 10:36 SP [id number]) Hot Pack/Cold Pack Treatment Cold Pack Location Jaw, R>L Patient Position Hooklying Patient Tolerance Good Comments less R jaw irritation PT-OP-T Assessment and Plan Start: 01/29/24 11:36 Freq: Status: Active Protocol: Document 07/21/24 09:51 [facility] (Rec: 07/21/24 10:59 [facility] [id number]) Physical Therapy Assessment Goals ankle ROM Short Term Goal (STG) Pt will improve DF to neutral in knee ext position to dec strain on heel B 07/21-improved L>R STG Duration 08/08 Mcfp Goal (LTG) Pt will have DF to at least 5 deg in knee ext B and at least 8 deg in knee flex position B to allow for normal gait mehcanics 07/21-L>R improved LTG Duration 09/28 foot Mcfp Goal (LTG) Pt will report no pain greater than 2/10 when first getting up in AM and after sitting extended in heel 07/21-6-04/28 but not as much as it used to be LTG Duration 09/19 pain Aircraft Electronics Technical Officer Goal (LTG) Pt will report a 75% decrease in feeling of head, neck and jaw tension in order to participate in daily life w/ less difficulty 05/18-has had a lot of stress, feels like neck has improved. unsure about jaw 10/2-unsure d/t so much stress LTG Duration 09/28 ROM Short Term Goal (STG) pt will have at least 35 mm of opening of jaw w/o inc jaw tension 03/24/24: jaw 34cm arrival, not pain but feel clunk on R. 05/18-mild tightness 34 mm 07/14/24: 33 mm, no pain but mild tightness 07/21-28mm w/tightness STG Duration 08/03 Mcfp Goal (LTG) Pt will have full cervical ROM w/o inc pain or feeling off 05/18 improved significnat LTG Duration 09/28 ear Aircraft Electronics Technical Officer Goal (LTG) Pt will report dec ear tension and symptoms w/o inc discomfort when driving and changing elevations. 05/18 improved overall but still limited 07/21-worse recently LTG Duration 09/30 Assessment Summary Assessment Pt has been seen intermittently over last 2 months d/t scheduling difficulty. She is still limited in ankle ROM L but improving and has inc in head prsessure /ear pressure today but also notes higher stress, a cough w/post nasal drainage that may be related. Pt encouraged to follow up w/ academic records specialist as she has been considering this. Cont PT to focus on dec R ear pressure and improved jaw mobility along w/dec L heel pain. She was encourage dto wear more supportive sneaker to help. Physical Therapy Plan Frequency and Duration Frequency of Treatment 1-2x/wk Duration of treatment (weeks) 10 Plan of Care Start Date 07/21/24 Plan of Care End Date 09/29/24 Therapeutic Interventions Therapeutic Interventions Canalithic Repositioning,Home Exercise Program,Joint Mobilizations,Manual Therapy, Neuromuscular Re-education, Patient/Caregiver Education, Self-Care/Home Management,Soft Tissue Mobilization,Taping, Therapeutic Activities, Therapeutic Exercises, Vestibular Rehabilitation Modalities Cold Pack/Ice Massage,Electric Stimulation,Hot Packs, Infrared Therapy,Traction- Mechanical,Ultrasound Next Visit Focus/Plan Next Note Type Treatment Note Next Visit Plan recheck: Added ankle strengthening review calf & plantar fascia stretching and self STMs. and Theracane neck for self tension reduction. POC: cont to work on jaw motion & upper cervical mobility; STM to calf and ankle/foot jt mobs, try kt taping but avoid foot cut
--- NOTE | 2024-07-21 10:59 | PT.OPPOC ---
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 (07/21/24) Fibromyalgia (07/21/24) Visit Care Team Role Provider Type Jenny Manzo MD Family Provider Physician Specialty: Gynecology PHOTOLITHOGRAPHER Obstetrics Address: [address] [place] [address], [id number] Email: [email or web address] Quang Webb MD Attending Provider Physician Primary Care Provider Referring Provider Specialty: Family Practice Address: [address] [place] [address], [id number] Email: [email or web address] Plan Of Care PT-OP-B Current Condition Start: 01/29/24 11:36 Freq: Status: Active Protocol: Document 03/04/24 10:40 [facility] (Rec: 03/04/24 13:48 [facility] [id number]) Current Condition History of Current Condition Onset Date about 1.5 years pt thinks Current Complaints Jaw tension, neck pain, ear unable to clear History of Current Condition Pt has pressure where she can' t clear her ears. L has gotten better and R still can't clear. Eardrum looks normal, hearing normal, no fluid. ENT mentioned poking hole in eardrum . Going up/down hills/ elevation can't get R ear to clear and pressure just builds up. She does have B jaw tension. She has been told she may be a candidate for double jaw surgery. She went and saw a specialized doctor in [place]. She got a mouthguard for at night and has had it for 2 weeks and is not sure what she thinks of it. when she wears it,s he has to keep moving her jaw and has bite plates to reset her bite after . 1x/week she wears her old nightguard. She is waiting to do another sleep study. She is in a lot of stress currently and in December, she had a weird thing happen wehre seh felt like she wasn't really there. It was kind of how she felt after her covid vaccine. She started feeling worse and layed down where dizzy and nauseated. It got bad enough that she talked to her friend who was a nurse and 911 was called. Vitals were checked by EMT and told she was having a panic attack. She saw her primary the next day. Sometimes it feels like she is carrying so much overwhelm that it becomes beyond what her body can handle. She is seeing counselor. Has had head pressure when bends over also . She has had imaging of brain and nothing showed. Her head aches, but she doesn't have DANIEL often. She does have neck pain and sometimes when she wakes up, she can hardly move it. She is seeing a chiro which helps her neck but hasn' t changed the head pressure or the ear clearing. EKG has been done by EMT and looked normal. Pt reports L ankle occ feels difficulty w/down stairs and just feels tight down L leg. 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 Treatment Goals Patient/Caregiver Goals improve ear ability to clear, jaw tension PT-OP-T Assessment and Plan Start: 01/29/24 11:36 Freq: Status: Active Protocol: Document 07/21/24 09:51 [facility] (Rec: 07/21/24 10:59 [facility] [id number]) Physical Therapy Assessment Goals ankle ROM Short Term Goal (STG) Pt will improve DF to neutral in knee ext position to dec strain on heel B 07/21-improved L>R STG Duration 08/08 Halfway Goal (LTG) Pt will have DF to at least 5 deg in knee ext B and at least 8 deg in knee flex position B to allow for normal gait mehcanics 07/21-L>R improved LTG Duration 09/28 foot Halfway Goal (LTG) Pt will report no pain greater than 2/10 when first getting up in AM and after sitting extended in heel 07/21-6-7 but not as much as it used to be LTG Duration 09/19 pain Halfway Goal (LTG) Pt will report a 75% decrease in feeling of head, neck and jaw tension in order to participate in daily life w/ less difficulty 05/18-has had a lot of stress, feels like neck has improved. unsure about jaw 07/21-unsure d/t so much stress LTG Duration 09/28 ROM Short Term Goal (STG) pt will have at least 35 mm of opening of jaw w/o inc jaw tension 03/24/24: jaw 34cm arrival, not pain but feel clunk on R. 05/18-mild tightness 34 mm 07/14/24: 33 mm, no pain but mild tightness 07/21-28mm w/tightness STG Duration 08/03 Transit Mixer Operator Goal (LTG) Pt will have full cervical ROM w/o inc pain or feeling off 05/18 improved significnat LTG Duration 09/28 ear Halfway Goal (LTG) Pt will report dec ear tension and symptoms w/o inc discomfort when driving and changing elevations. 05/18 improved overall but still limited 07/21-worse recently LTG Duration 09/30 Assessment Summary Assessment Pt has been seen intermittently over last 2 months d/t scheduling difficulty. She is still limited in ankle ROM L but improving and has inc in head prsessure /ear pressure today but also notes higher stress, a cough w/post nasal drainage that may be related. Pt encouraged to follow up w/ new car make ready worker as she has been considering this. Cont PT to focus on dec R ear pressure and improved jaw mobility along w/dec L heel pain. She was encourage dto wear more supportive sneaker to help. Physical Therapy Plan Frequency and Duration Frequency of Treatment 1-2x/wk Duration of treatment (weeks) 10 Plan of Care Start Date 07/21/24 Plan of Care End Date 09/29/24 Therapeutic Interventions Therapeutic Interventions Canalithic Repositioning,Home Exercise Program,Joint Mobilizations,Manual Therapy, Neuromuscular Re-education, Patient/Caregiver Education, Self-Care/Home Management,Soft Tissue Mobilization,Taping, Therapeutic Activities, Therapeutic Exercises, Vestibular Rehabilitation Modalities Cold Pack/Ice Massage,Electric Stimulation,Hot Packs, Infrared Therapy,Traction- Mechanical,Ultrasound Next Visit Focus/Plan Next Note Type Treatment Note Next Visit Plan recheck: Added ankle strengthening review calf & plantar fascia stretching and self STMs. and Theracane neck for self tension reduction. POC: cont to work on jaw motion & upper cervical mobility; STM to calf and ankle/foot jt mobs, try kt taping but avoid foot cut Plan of Care Dates Plan of Care Start Date 07/21/24 Plan of Care End Date 09/29/24 Electronically Signed by: China Aguirre, PT 07/21/24 [id number] If you are in agreement with this Plan of Care, please return a signed and dated copy. I have reviewed this Plan of Care and certify that the skilled therapy services above are required to meet the patient?s needs. Physician Signature Date Printed Name and Credentials Clinical Instructor Signature Printed Name and Credentials
--- NOTE | 2024-08-03 15:18 | PT.OTN ---
Current Diagnoses Unspecified Eustachian tube disorder, bilateral (08/03/24) Arthropathy of bilateral temporomandibular joint (08/03/24) Plantar fascial fibromatosis (08/03/24) Fibromyalgia (08/03/24) Physical Therapy Treatment Note PT-OP-A Visit Information Start: 01/29/24 11:36 Freq: Status: Active Protocol: Document 08/03/24 11:32 [facility] (Rec: 08/03/24 15:18 [facility] [id number]) Out-Patient Physical Therapy Visit Information Visit Information Visit Type Treatment Note Visit Note 11/29 Visit Start Time 11:34 Visit Stop Time 12:14 Visit Number 17 Number of MAINSPRING BARREL ASSEMBLY CLEANER Visits 0 PT-OP-B Current Condition Start: 01/29/24 11:36 Freq: Status: Active Protocol: Document 03/04/24 10:40 [facility] (Rec: 03/04/24 13:48 [facility] [id number]) Current Condition History of Current Condition Onset Date about 1.5 years pt thinks Current Complaints Jaw tension, neck pain, ear unable to clear History of Current Condition Pt has pressure where she can' t clear her ears. L has gotten better and R still can't clear. Eardrum looks normal, hearing normal, no fluid. ENT mentioned poking hole in eardrum . Going up/down hills/ elevation can't get R ear to clear and pressure just builds up. She does have B jaw tension. She has been told she may be a candidate for double jaw surgery. She went and saw a specialized doctor in [place]. She got a mouthguard for at night and has had it for 2 weeks and is not sure what she thinks of it. when she wears it,s he has to keep moving her jaw and has bite plates to reset her bite after . 1x/week she wears her old nightguard. She is waiting to do another sleep study. She is in a lot of stress currently and in December, she had a weird thing happen weshawn carrera felt like she wasn't really there. It was kind of how she felt after her covid vaccine. She started feeling worse and layed down where dizzy and nauseated. It got bad enough that she talked to her friend who was a nurse and 911 was called. Vitals were checked by EMT and told she was having a panic attack. She saw her primary the next day. Sometimes it feels like she is carrying so much overwhelm that it becomes beyond what her body can handle. She is seeing counselor. Has had head pressure when bends over also . She has had imaging of brain and nothing showed. Her head aches, but she doesn't have DANIEL often. She does have neck pain and sometimes when she wakes up, she can hardly move it. She is seeing a chiro which helps her neck but hasn' t changed the head pressure or the ear clearing. EKG has been done by EMT and looked normal. Pt reports L ankle occ feels difficulty w/down stairs and just feels tight down L leg. 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 Treatment Goals Patient/Caregiver Goals improve ear ability to clear, jaw tension PT-OP-C Subjective Start: 01/29/24 11:36 Freq: Status: Active Protocol: Document 08/03/24 11:32 [facility] (Rec: 08/03/24 15:18 [facility] [id number]) OP-PT Subjective Patient Comments Patient Comments reports she has been really stressed d/t problems w/ . Has been compliant w/ stretching and bands w/heel and doing rolling out. Is feeling good about her routine w/her heel. Pain is worst in AM but does get better in day. Stretches in bed first. Wants to focus on ears. PT-OP-F Manual Assessment Start: 01/29/24 11:36 Freq: Status: Active Protocol: Document 03/04/24 10:40 [facility] (Rec: 03/04/24 13:48 [facility] [id number]) Manual Assessments Soft Tissue Assessment Soft Tissue Mobility Assessment tenderness and tightness throguhout neck and cranium Joint Mobility Assessment Joint Mobility Assessment ant shearing TMJ-occ clicking R>L; ant shearing L>R w/jaw opening; post shear R>L w/ closing PT-OP-J Posture/Palpation/Skin Start: 01/29/24 11:36 Freq: Status: Active Protocol: Document 03/04/24 10:40 [facility] (Rec: 03/04/24 13:48 [facility] [id number]) Posture Evaluation Roldan Postural Classification System Roldan Postural Classifications Posterior/Anterior Comments Posture Comments head R SB; R scap >L abd, L shoulder higher, fwd head, inc thoracic kyphosis PT-OP-K Range of Motion Start: 01/29/24 11:36 Freq: Status: Active Protocol: Document 07/21/24 09:51 [facility] (Rec: 07/21/24 10:59 [facility] [id number]) Cervical Spine Range of Motion Cervical Spine Active Degrees Flexion 64 Extension 55 Rotation Left 60 Rotation Right 65 Lateral Flexion Left 25 Lateral Flexion Right 35 Comments strain to shoulder w/L rot; tight R w/L SB TMJ Range of Motion Jaw Openning Jaw Openning (mm) 28 Comments Comments tight w/opening Ankle and Foot Goniometric Range of Motion Ankle and Foot Right Active Dorsiflexion with Knee Flexed 5 Dorsiflexion with Knee Extended 5 Comments lacking DF to neutral in knee ext position Left Active Dorsiflexion with Knee Flexed 7 Dorsiflexion with Knee Extended 0 Plantarflexion 65 Inversion 39 Eversion 22 Comments strain in heel w/inversion lacking DF to neutral in knee ext position PT-OP-L Special Tests Start: 01/29/24 11:36 Freq: Status: Active Protocol: Document 03/04/24 10:40 [facility] (Rec: 03/04/24 13:48 [facility] [id number]) Special Tests Cervical Spine Special Tests cranial n screen Test Results neg except some saccades noted w/smooth pursuit atlas/axis shear Test Results neg tectoral membrane Test Results neg arterial screening Test Results position screen neg Comments BP:168/68; ausciltation of carotid and heart WNL Alar Ligament Test Results neg spurling Test Results neg-just pressure Traction Test Results relief-dec pressure PT-OP-M Strength Start: 01/29/24 11:36 Freq: Status: Active Protocol: Document 05/18/24 13:51 [facility] (Rec: 05/18/24 16:44 [facility] [id number]) Ankle/Foot Strength Ankle and Foot Manual Muscle Testing Left Dorsiflexion (L4) 4+ Good+ Plantarflexion (S1) 2+ Poor+ Inversion 4+ Good+ Eversion (S1) 5 Normal Comments unable to do heel raises Toe Strength Toe Manual Muscle Testing Left Flexion 4 Good Extension 5 Normal Comments all toes PT-OP-Q Treatments Start: 01/29/24 11:36 Freq: Status: Active Protocol: Document 08/03/24 11:32 [facility] (Rec: 08/03/24 15:18 [facility] [id number]) Manual Therapy Treatment Consent Patient gave verbal consent for manual Yes treatment Soft Tissue Mobilization neck Body Location R>L suboccipitals, SOR, UT, SCM Mobilization Type Rolling,Sustained Pressure, Other Intensity/Depth Moderate Comments w/gentle cervical rot jaw Body Location R>L temoralis Mobilization Type Myofascial Release,Rolling, Sustained Pressure Intensity/Depth Moderate Body Position Hooklying head Body Location B cranium fascia & fasical fascia Mobilization Type Myofascial Release Intensity/Depth Superficial Comments good feedback reduction tension Joint Mobilizations cervical Comments C 1 transverse R and UAP L C2 transverse L and UAP R PT-OP-R Modalities Start: 01/29/24 11:36 Freq: Status: Active Protocol: Document 07/14/24 09:45 [facility] (Rec: 07/14/24 10:36 [facility] [id number]) Hot Pack/Cold Pack Treatment Cold Pack Location Jaw, R>L Patient Position Hooklying Patient Tolerance Good Comments less R jaw irritation PT-OP-T Assessment and Plan Start: 01/29/24 11:36 Freq: Status: Active Protocol: Document 08/03/24 11:32 [facility] (Rec: 08/03/24 15:18 [facility] [id number]) Physical Therapy Assessment Goals ankle ROM Short Term Goal (STG) Pt will improve DF to neutral in knee ext position to dec strain on heel B 07/21-improved L>R STG Duration 08/08 Halfway Goal (LTG) Pt will have DF to at least 5 deg in knee ext B and at least 8 deg in knee flex position B to allow for normal gait mehcanics 07/21-L>R improved LTG Duration 09/28 foot Halfway Goal (LTG) Pt will report no pain greater than 2/10 when first getting up in AM and after sitting extended in heel 07/21-6-04/28 but not as much as it used to be LTG Duration 09/19 pain Halfway Goal (LTG) Pt will report a 75% decrease in feeling of head, neck and jaw tension in order to participate in daily life w/ less difficulty 05/18-has had a lot of stress, feels like neck has improved. unsure about jaw 07/21-unsure d/t so much stress LTG Duration 09/28 ROM Short Term Goal (STG) pt will have at least 35 mm of opening of jaw w/o inc jaw tension 03/24/24: jaw 34cm arrival, not pain but feel clunk on R. 05/18-mild tightness 34 mm 07/14/24: 33 mm, no pain but mild tightness 07/21-28mm w/tightness STG Duration 08/03 Dice Manager Goal (LTG) Pt will have full cervical ROM w/o inc pain or feeling off 05/18 improved significnat LTG Duration 09/28 ear Dice Manager Goal (LTG) Pt will report dec ear tension and symptoms w/o inc discomfort when driving and changing elevations. 05/18 improved overall but still limited 07/21-worse recently LTG Duration 09/30 Assessment Summary Assessment Pt reported feeling like sinuses cleared out after session and had more ease w/ deep breath trhough facial sinuses. Physical Therapy Plan Frequency and Duration Frequency of Treatment 1-2x/wk Duration of treatment (weeks) 10 Plan of Care Start Date 07/21/24 Plan of Care End Date 09/29/24 Next Visit Focus/Plan Next Note Type Treatment Note Next Visit Plan cont to work on facia of head and face
--- NOTE | 2024-08-18 10:58 | PT.OTN ---
Current Diagnoses Unspecified Eustachian tube disorder, bilateral (08/18/24) Arthropathy of bilateral temporomandibular joint (08/18/24) Plantar fascial fibromatosis (08/18/24) Fibromyalgia (08/18/24) Physical Therapy Treatment Note PT-OP-A Visit Information Start: 01/29/24 11:36 Freq: Status: Active Protocol: Document 08/18/24 09:35 [facility] (Rec: 08/18/24 10:58 [facility] [id number]) Out-Patient Physical Therapy Visit Information Visit Information Visit Type Treatment Note Visit Note 12/27 Visit Start Time 09:47 Visit Stop Time 10:32 Visit Number 18 Number of DEVELOPER PROGRAMMER Visits 0 PT-OP-B Current Condition Start: 01/29/24 11:36 Freq: Status: Active Protocol: Document 03/04/24 10:40 [facility] (Rec: 03/04/24 13:48 [facility] [id number]) Current Condition History of Current Condition Onset Date about 1.5 years pt thinks Current Complaints Jaw tension, neck pain, ear unable to clear History of Current Condition Pt has pressure where she can' t clear her ears. L has gotten better and R still can't clear. Eardrum looks normal, hearing normal, no fluid. ENT mentioned poking hole in eardrum . Going up/down hills/ elevation can't get R ear to clear and pressure just builds up. She does have B jaw tension. She has been told she may be a candidate for double jaw surgery. She went and saw a specialized doctor in [place]. She got a mouthguard for at night and has had it for 2 weeks and is not sure what she thinks of it. when she wears it,s he has to keep moving her jaw and has bite plates to reset her bite after . 1x/week she wears her old nightguard. She is waiting to do another sleep study. She is in a lot of stress currently and in December, she had a weird thing happen weshawn carrera felt like she wasn't really there. It was kind of how she felt after her covid vaccine. She started feeling worse and layed down where dizzy and nauseated. It got bad enough that she talked to her friend who was a nurse and 911 was called. Vitals were checked by EMT and told she was having a panic attack. She saw her primary the next day. Sometimes it feels like she is carrying so much overwhelm that it becomes beyond what her body can handle. She is seeing counselor. Has had head pressure when bends over also . She has had imaging of brain and nothing showed. Her head aches, but she doesn't have DANIEL often. She does have neck pain and sometimes when she wakes up, she can hardly move it. She is seeing a chiro which helps her neck but hasn' t changed the head pressure or the ear clearing. EKG has been done by EMT and looked normal. Pt reports L ankle occ feels difficulty w/down stairs and just feels tight down L leg. 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 Treatment Goals Patient/Caregiver Goals improve ear ability to clear, jaw tension PT-OP-C Subjective Start: 01/29/24 11:36 Freq: Status: Active Protocol: Document 08/18/24 09:35 [facility] (Rec: 08/18/24 10:58 [facility] [id number]) OP-PT Subjective Patient Comments Patient Comments Pt had PRP for heel last friday and her protocol for her is tiger balm in the am, cold/hot baths, and to stay off L foot as much as possible . ND wants PT to work on legs since so tight. Went to [facility] without any allergies and referred fro chest xray and came back abnormal but she hasn't been sick recently besides the random cough that is lingering . Getting CT on friday and referring to pulmonology. Head is the same. PT-OP-F Manual Assessment Start: 01/29/24 11:36 Freq: Status: Active Protocol: Document 03/04/24 10:40 [facility] (Rec: 03/04/24 13:48 [facility] [id number]) Manual Assessments Soft Tissue Assessment Soft Tissue Mobility Assessment tenderness and tightness throguhout neck and cranium Joint Mobility Assessment Joint Mobility Assessment ant shearing TMJ-occ clicking R>L; ant shearing L>R w/jaw opening; post shear R>L w/ closing PT-OP-J Posture/Palpation/Skin Start: 01/29/24 11:36 Freq: Status: Active Protocol: Document 03/04/24 10:40 [facility] (Rec: 03/04/24 13:48 [facility] [id number]) Posture Evaluation Roldan Postural Classification System Roldan Postural Classifications Posterior/Anterior Comments Posture Comments head R SB; R scap >L abd, L shoulder higher, fwd head, inc thoracic kyphosis PT-OP-K Range of Motion Start: 01/29/24 11:36 Freq: Status: Active Protocol: Document 07/21/24 09:51 [facility] (Rec: 07/21/24 10:59 [facility] [id number]) Cervical Spine Range of Motion Cervical Spine Active Degrees Flexion 64 Extension 55 Rotation Left 60 Rotation Right 65 Lateral Flexion Left 25 Lateral Flexion Right 35 Comments strain to shoulder w/L rot; tight R w/L SB TMJ Range of Motion Jaw Openning Jaw Openning (mm) 28 Comments Comments tight w/opening Ankle and Foot Goniometric Range of Motion Ankle and Foot Right Active Dorsiflexion with Knee Flexed 5 Dorsiflexion with Knee Extended 5 Comments lacking DF to neutral in knee ext position Left Active Dorsiflexion with Knee Flexed 7 Dorsiflexion with Knee Extended 0 Plantarflexion 65 Inversion 39 Eversion 22 Comments strain in heel w/inversion lacking DF to neutral in knee ext position PT-OP-L Special Tests Start: 01/29/24 11:36 Freq: Status: Active Protocol: Document 03/04/24 10:40 [facility] (Rec: 03/04/24 13:48 [facility] [id number]) Special Tests Cervical Spine Special Tests cranial n screen Test Results neg except some saccades noted w/smooth pursuit atlas/axis shear Test Results neg tectoral membrane Test Results neg arterial screening Test Results position screen neg Comments BP:168/68; ausciltation of carotid and heart WNL Alar Ligament Test Results neg spurling Test Results neg-just pressure Traction Test Results relief-dec pressure PT-OP-M Strength Start: 01/29/24 11:36 Freq: Status: Active Protocol: Document 05/18/24 13:51 [facility] (Rec: 05/18/24 16:44 [facility] [id number]) Ankle/Foot Strength Ankle and Foot Manual Muscle Testing Left Dorsiflexion (L4) 4+ Good+ Plantarflexion (S1) 2+ Poor+ Inversion 4+ Good+ Eversion (S1) 5 Normal Comments unable to do heel raises Toe Strength Toe Manual Muscle Testing Left Flexion 4 Good Extension 5 Normal Comments all toes PT-OP-Q Treatments Start: 01/29/24 11:36 Freq: Status: Active Protocol: Document 08/18/24 09:35 [facility] (Rec: 08/18/24 10:58 [facility] [id number]) Therapeutic Exercises Supine Exercises stretch Supine Exercise Name 1. active HS stretch 2.sciatic n glide w/SLR hold w/APs Side bilateral Reps/Minutes 1. 10 sec x8 2. 15 Aps Sitting Exercises plantar fascia stretch Side left Reps/Minutes 30 sec calf stretch Sitting Exercise Name Reviewed self HEP Side left Resistance towel Reps/Minutes 30 Sec x2 Comments good calf stretch, non stretch sheet feels more effective Standing Exercises stretch Standing Exercise Name 1.standing gastroc and soleus fwd lean Side bilateral Reps/Minutes 30 sec ea Comments cues comfortable range Manual Therapy Treatment Consent Patient gave verbal consent for manual Yes treatment Soft Tissue Mobilization HS Body Location L gracilis, semitendonosis & semimembranosus Mobilization Type Rolling Comments w/AAROM SLR calf Body Location L calf Mobilization Type Myofascial Release,Rolling Comments w/DF Joint Mobilizations hip Joint L inf glide c/r Self-Care/Home Management Treatment Education Other Education 7 min: edu re: sleep hygiene and importance of good sleep. Discussed dimming lights, putting away devices, reading, yoga and/or meditation prior PT-OP-R Modalities Start: 01/29/24 11:36 Freq: Status: Active Protocol: Document 07/14/24 09:45 [facility] (Rec: 07/14/24 10:36 SP [id number]) Hot Pack/Cold Pack Treatment Cold Pack Location Jaw, R>L Patient Position Hooklying Patient Tolerance Good Comments less R jaw irritation PT-OP-T Assessment and Plan Start: 01/29/24 11:36 Freq: Status: Active Protocol: Document 08/18/24 09:35 [facility] (Rec: 08/18/24 10:58 [facility] [id number]) Physical Therapy Assessment Goals ankle ROM Short Term Goal (STG) Pt will improve DF to neutral in knee ext position to dec strain on heel B 07/21-improved L>R STG Duration 08/08 Senior Care Goal (LTG) Pt will have DF to at least 5 deg in knee ext B and at least 8 deg in knee flex position B to allow for normal gait mehcanics 10/2-L>R improved LTG Duration 09/28 foot Knife Setter Assembler Goal (LTG) Pt will report no pain greater than 2/10 when first getting up in AM and after sitting extended in heel 07/21--04/28 but not as much as it used to be LTG Duration 09/19 pain Knife Setter Assembler Goal (LTG) Pt will report a 75% decrease in feeling of head, neck and jaw tension in order to participate in daily life w/ less difficulty 05/18-has had a lot of stress, feels like neck has improved. unsure about jaw 07/21-unsure d/t so much stress LTG Duration 09/28 ROM Short Term Goal (STG) pt will have at least 35 mm of opening of jaw w/o inc jaw tension 03/24/24: jaw 34cm arrival, not pain but feel clunk on R. 05/18-mild tightness 34 mm 07/14/24: 33 mm, no pain but mild tightness 07/21-28mm w/tightness STG Duration 08/03 Knife Setter Assembler Goal (LTG) Pt will have full cervical ROM w/o inc pain or feeling off 05/18 improved significnat LTG Duration 09/28 ear Senior Care Goal (LTG) Pt will report dec ear tension and symptoms w/o inc discomfort when driving and changing elevations. 05/18 improved overall but still limited 07/21-worse recently LTG Duration 09/30 Assessment Summary Assessment Pt had about 70 deg SLR w/opp knee bent and improved to about 85 w/opp knee straight after manual and 90 deg w/opp knee bent with less tension down post LLE into heel. REviewd self stretch exercsies . Physical Therapy Plan Frequency and Duration Frequency of Treatment 1-2x/wk Duration of treatment (weeks) 10 Plan of Care Start Date 07/21/24 Plan of Care End Date 09/29/24 Next Visit Focus/Plan Next Note Type Treatment Note Next Visit Plan work on full fascial change mobility LLE, consider visceral work, work on fascia of head and face
--- NOTE | 2024-09-08 11:41 | PT.OTN ---
Current Diagnoses Unspecified Eustachian tube disorder, bilateral (09/08/24) Arthropathy of bilateral temporomandibular joint (09/08/24) Plantar fascial fibromatosis (09/08/24) Fibromyalgia (09/08/24) Physical Therapy Treatment Note PT-OP-A Visit Information Start: 01/29/24 11:36 Freq: Status: Active Protocol: Document 09/08/24 09:53 [facility] (Rec: 09/08/24 10:48 [facility] [id number]) Out-Patient Physical Therapy Visit Information Visit Information Visit Type Progress Note Visit Note 01/27 Visit Start Time 09:53 Visit Stop Time 10:33 Visit Number 19 Number of TUBE WRAPPER Visits 0 PT-OP-B Current Condition Start: 01/29/24 11:36 Freq: Status: Active Protocol: Document 03/04/24 10:40 [facility] (Rec: 03/04/24 13:48 [facility] [id number]) Current Condition History of Current Condition Onset Date about 1.5 years pt thinks Current Complaints Jaw tension, neck pain, ear unable to clear History of Current Condition Pt has pressure where she can' t clear her ears. L has gotten better and R still can't clear. Eardrum looks normal, hearing normal, no fluid. ENT mentioned poking hole in eardrum . Going up/down hills/ elevation can't get R ear to clear and pressure just builds up. She does have B jaw tension. She has been told she may be a candidate for double jaw surgery. She went and saw a specialized doctor in [place]. She got a mouthguard for at night and has had it for 2 weeks and is not sure what she thinks of it. when she wears it,s he has to keep moving her jaw and has bite plates to reset her bite after . 1x/week she wears her old nightguard. She is waiting to do another sleep study. She is in a lot of stress currently and in December, she had a weird thing happen weshawn carrera felt like she wasn't really there. It was kind of how she felt after her covid vaccine. She started feeling worse and layed down where dizzy and nauseated. It got bad enough that she talked to her friend who was a nurse and 911 was called. Vitals were checked by EMT and told she was having a panic attack. She saw her primary the next day. Sometimes it feels like she is carrying so much overwhelm that it becomes beyond what her body can handle. She is seeing counselor. Has had head pressure when bends over also . She has had imaging of brain and nothing showed. Her head aches, but she doesn't have DANIEL often. She does have neck pain and sometimes when she wakes up, she can hardly move it. She is seeing a chiro which helps her neck but hasn' t changed the head pressure or the ear clearing. EKG has been done by EMT and looked normal. Pt reports L ankle occ feels difficulty w/down stairs and just feels tight down L leg. 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 Treatment Goals Patient/Caregiver Goals improve ear ability to clear, jaw tension PT-OP-C Subjective Start: 01/29/24 11:36 Freq: Status: Active Protocol: Document 09/08/24 09:53 [facility] (Rec: 09/08/24 10:48 [facility] [id number]) OP-PT Subjective Patient Comments Patient Comments Pt having days where heel is feeling better but some days it feels better. Sometimes when just sitting it feels like almost an aura. She feels like she isn't limping as much on first few steps. Has a call w/doctor that does injection. Been doing her exercises and feels like she is less tight. Neck is super locked up and chiro couldn't get it to move in either direction. Feels like area btwn skull and neck is really tight but has been under a lot of stress w/family issues. still feels L ear is better than R. CT of lungs ruled out a lot of bad stuff. THinks there is an injection and thinks it is somiething you can get from potting soil or water. Had to do a sputum test . Has not heard results. PT-OP-F Manual Assessment Start: 01/29/24 11:36 Freq: Status: Active Protocol: Document 03/04/24 10:40 [facility] (Rec: 03/04/24 13:48 [facility] [id number]) Manual Assessments Soft Tissue Assessment Soft Tissue Mobility Assessment tenderness and tightness throguhout neck and cranium Joint Mobility Assessment Joint Mobility Assessment ant shearing TMJ-occ clicking R>L; ant shearing L>R w/jaw opening; post shear R>L w/ closing PT-OP-J Posture/Palpation/Skin Start: 01/29/24 11:36 Freq: Status: Active Protocol: Document 03/04/24 10:40 [facility] (Rec: 03/04/24 13:48 [facility] [id number]) Posture Evaluation [facility] Postural Classification System [place] Postural Classifications Posterior/Anterior Comments Posture Comments head R SB; R scap >L abd, L shoulder higher, fwd head, inc thoracic kyphosis PT-OP-K Range of Motion Start: 01/29/24 11:36 Freq: Status: Active Protocol: Document 09/08/24 09:53 [facility] (Rec: 09/08/24 10:48 [facility] [id number]) Cervical Spine Range of Motion Cervical Spine Active Degrees Flexion 68 Extension 60 Rotation Left 52 Rotation Right 55 Lateral Flexion Left 34 Lateral Flexion Right 35 Comments tight w/rot & SB TMJ Range of Motion Jaw Openning Jaw Openning (mm) 34 Ankle and Foot Goniometric Range of Motion Ankle and Foot Right Active Dorsiflexion with Knee Flexed 5 Dorsiflexion with Knee Extended 0 Left Active Dorsiflexion with Knee Flexed 7 Dorsiflexion with Knee Extended 4 Comments tension w/DF only PT-OP-L Special Tests Start: 01/29/24 11:36 Freq: Status: Active Protocol: Document 03/04/24 10:40 [facility] (Rec: 03/04/24 13:48 [facility] [id number]) Special Tests Cervical Spine Special Tests cranial n screen Test Results neg except some saccades noted w/smooth pursuit atlas/axis shear Test Results neg tectoral membrane Test Results neg arterial screening Test Results position screen neg Comments BP:168/68; ausciltation of carotid and heart WNL Alar Ligament Test Results neg spurling Test Results neg-just pressure Traction Test Results relief-dec pressure PT-OP-M Strength Start: 01/29/24 11:36 Freq: Status: Active Protocol: Document 05/18/24 13:51 [facility] (Rec: 05/18/24 16:44 [facility] [id number]) Ankle/Foot Strength Ankle and Foot Manual Muscle Testing Left Dorsiflexion (L4) 4+ Good+ Plantarflexion (S1) 2+ Poor+ Inversion 4+ Good+ Eversion (S1) 5 Normal Comments unable to do heel raises Toe Strength Toe Manual Muscle Testing Left Flexion 4 Good Extension 5 Normal Comments all toes PT-OP-Q Treatments Start: 01/29/24 11:36 Freq: Status: Active Protocol: Document 09/08/24 09:53 [facility] (Rec: 09/08/24 10:48 [facility] [id number]) Manual Therapy Treatment Consent Patient gave verbal consent for manual Yes treatment Soft Tissue Mobilization calf Body Location L calf Mobilization Type Myofascial Release,Rolling Comments w/DF and sciatic n glide Joint Mobilizations innominate Joint L PA Comments w/percussion w/n glide lumbar Comments L UPA L4 and 5 percussion progressed to w/n glide PT-OP-R Modalities Start: 01/29/24 11:36 Freq: Status: Active Protocol: Document 07/14/24 09:45 [facility] (Rec: 07/14/24 10:36 [facility] [id number]) Hot Pack/Cold Pack Treatment Cold Pack Location Jaw, R>L Patient Position Hooklying Patient Tolerance Good Comments less R jaw irritation PT-OP-T Assessment and Plan Start: 01/29/24 11:36 Freq: Status: Active Protocol: Document 09/08/24 09:53 [facility] (Rec: 09/08/24 10:48 [facility] [id number]) Physical Therapy Assessment Goals ankle ROM Short Term Goal (STG) Pt will improve DF to neutral in knee ext position to dec strain on heel B 07/21-improved L>R STG Duration achieed 09/08 Longterm Goal (LTG) Pt will have DF to at least 5 deg in knee ext B and at least 8 deg in knee flex position B to allow for normal gait mehcanics 07/21-L>R improved 09/08-slowly improving LTG Duration 11/08/24 foot Med Care Manager Goal (LTG) Pt will report no pain greater than 2/10 when first getting up in AM and after sitting extended in heel 07/21-6-04/28 but not as much as it used to be 09/08-depends on the day 4.5-7 /10 ; overall feels better more often LTG Duration 11/08/24 pain Longterm Goal (LTG) Pt will report a 75% decrease in feeling of head, neck and jaw tension in order to participate in daily life w/ less difficulty 05/18-has had a lot of stress, feels like neck has improved. unsure about jaw 07/21-unsure d/t so much stress 09/08-inc recently w/inc stress for cervical tension, jaw tension still present LTG Duration 11/08/24 ROM Short Term Goal (STG) pt will have at least 35 mm of opening of jaw w/o inc jaw tension 03/24/24: jaw 34cm arrival, not pain but feel clunk on R. 05/18-mild tightness 34 mm 07/14/24: 33 mm, no pain but mild tightness 07/21-28mm w/tightness 09/08-34 mm improved-less tightness feeling STG Duration 09/28 Med Care Manager Goal (LTG) Pt will have full cervical ROM w/o inc pain or feeling off 05/18 improved significnat 09/08-improved comfort w/flex and ext and improved equal SB but does feel res LTG Duration 10/22/24 ear Med Care Manager Goal (LTG) Pt will report dec ear tension and symptoms w/o inc discomfort when driving and changing elevations. 05/18 improved overall but still limited 07/21-worse recently 09/08-improved a little; L ear feels like it would be okay if R stopped; R ear improved about 20% LTG Duration 11/11/24 Assessment Summary Assessment Pt daniel dimporved SLR and ext sit test w/less neural tension down LLE after manual today. Less pain on initial standing after manual. Pt is slowly progressing w/ear pressure w/ slight improvement and is improving slowly w/L heel pain and B calf/achilles tension. Cont PT to focus on these issues. Physical Therapy Plan Frequency and Duration Frequency of Treatment 1-2x/wk Duration of treatment (weeks) 8 Plan of Care Start Date 09/08/24 Plan of Care End Date 11/11/24 Therapeutic Interventions Therapeutic Interventions Canalithic Repositioning,Home Exercise Program,Joint Mobilizations,Manual Therapy, Neuromuscular Re-education, Patient/Caregiver Education, Self-Care/Home Management,Soft Tissue Mobilization,Taping, Therapeutic Activities, Therapeutic Exercises, Vestibular Rehabilitation Modalities Cold Pack/Ice Massage,Electric Stimulation,Hot Packs, Infrared Therapy,Traction- Mechanical,Ultrasound Next Visit Focus/Plan Next Note Type Treatment Note Next Visit Plan work on neural tension down LLE and trace and isolate ( lumbar to SI to HS, calf) w/ nerve glides manual to neck to improve rotational and SB ankle jt mobs for DF
--- NOTE | 2024-09-08 11:48 | PT.OPPOC ---
Physical, Occupational & Speech Therapy At [facility] Current Diagnoses Unspecified Eustachian tube disorder, bilateral (09/08/24) Arthropathy of bilateral temporomandibular joint (09/08/24) Plantar fascial fibromatosis (09/08/24) Fibromyalgia (09/08/24) Visit Care Team Role Provider Type Jenny Manzo MD Family Provider Physician Specialty: Gynecology CRITICAL CARE UNIT MANAGER Obstetrics Address: [address] [place] [address], [id number] Email: [email or web address] Quang Webb MD Attending Provider Physician Primary Care Provider Referring Provider Specialty: Family Practice Address: [address] [place] [address], [id number] Email: [email or web address] Plan Of Care PT-OP-B Current Condition Start: 01/29/24 11:36 Freq: Status: Active Protocol: Document 03/04/24 10:40 [facility] (Rec: 03/04/24 13:48 [facility] [id number]) Current Condition History of Current Condition Onset Date about 1.5 years pt thinks Current Complaints Jaw tension, neck pain, ear unable to clear History of Current Condition Pt has pressure where she can' t clear her ears. L has gotten better and R still can't clear. Eardrum looks normal, hearing normal, no fluid. ENT mentioned poking hole in eardrum . Going up/down hills/ elevation can't get R ear to clear and pressure just builds up. She does have B jaw tension. She has been told she may be a candidate for double jaw surgery. She went and saw a specialized doctor in [place]. She got a mouthguard for at night and has had it for 2 weeks and is not sure what she thinks of it. when she wears it,s he has to keep moving her jaw and has bite plates to reset her bite after . 1x/week she wears her old nightguard. She is waiting to do another sleep study. She is in a lot of stress currently and in December, she had a weird thing happen wehre seh felt like she wasn't really there. It was kind of how she felt after her covid vaccine. She started feeling worse and layed down where dizzy and nauseated. It got bad enough that she talked to her friend who was a nurse and 911 was called. Vitals were checked by EMT and told she was having a panic attack. She saw her primary the next day. Sometimes it feels like she is carrying so much overwhelm that it becomes beyond what her body can handle. She is seeing counselor. Has had head pressure when bends over also . She has had imaging of brain and nothing showed. Her head aches, but she doesn't have DANIEL often. She does have neck pain and sometimes when she wakes up, she can hardly move it. She is seeing a chiro which helps her neck but hasn' t changed the head pressure or the ear clearing. EKG has been done by EMT and looked normal. Pt reports L ankle occ feels difficulty w/down stairs and just feels tight down L leg. 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 Treatment Goals Patient/Caregiver Goals improve ear ability to clear, jaw tension PT-OP-T Assessment and Plan Start: 01/29/24 11:36 Freq: Status: Active Protocol: Document 09/08/24 09:53 [facility] (Rec: 09/08/24 10:48 [facility] [id number]) Physical Therapy Assessment Goals ankle ROM Short Term Goal (STG) Pt will improve DF to neutral in knee ext position to dec strain on heel B 07/21-improved L>R STG Duration achieed 09/08 Bus Greaser Goal (LTG) Pt will have DF to at least 5 deg in knee ext B and at least 8 deg in knee flex position B to allow for normal gait mehcanics 07/21-L>R improved 09/08-slowly improving LTG Duration 11/08/24 foot Bus Greaser Goal (LTG) Pt will report no pain greater than 2/10 when first getting up in AM and after sitting extended in heel 07/21--04/28 but not as much as it used to be 09/08-depends on the day 4.5- ; overall feels better more often LTG Duration 11/08/24 pain Bus Greaser Goal (LTG) Pt will report a 75% decrease in feeling of head, neck and jaw tension in order to participate in daily life w/ less difficulty 05/18-has had a lot of stress, feels like neck has improved. unsure about jaw 07/21-unsure d/t so much stress 09/08-inc recently w/inc stress for cervical tension, jaw tension still present LTG Duration 11/08/24 ROM Short Term Goal (STG) pt will have at least 35 mm of opening of jaw w/o inc jaw tension 03/24/24: jaw 34cm arrival, not pain but feel clunk on R. 05/18-mild tightness 34 mm 07/14/24: 33 mm, no pain but mild tightness 07/21-28mm w/tightness 09/08-34 mm improved-less tightness feeling STG Duration 09/28 Bus Greaser Goal (LTG) Pt will have full cervical ROM w/o inc pain or feeling off 05/18 improved significnat 09/08-improved comfort w/flex and ext and improved equal SB but does feel res LTG Duration 10/22/24 ear Group Home Goal (LTG) Pt will report dec ear tension and symptoms w/o inc discomfort when driving and changing elevations. 05/18 improved overall but still limited 07/21-worse recently 09/08-improved a little; L ear feels like it would be okay if R stopped; R ear improved about 20% LTG Duration 11/11/24 Assessment Summary Assessment Pt daniel dimporved SLR and ext sit test w/less neural tension down LLE after manual today. Less pain on initial standing after manual. Pt is slowly progressing w/ear pressure w/ slight improvement and is improving slowly w/L heel pain and B calf/achilles tension. Cont PT to focus on these issues. Physical Therapy Plan Frequency and Duration Frequency of Treatment 1-2x/wk Duration of treatment (weeks) 8 Plan of Care Start Date 09/08/24 Plan of Care End Date 11/11/24 Therapeutic Interventions Therapeutic Interventions Canalithic Repositioning,Home Exercise Program,Joint Mobilizations,Manual Therapy, Neuromuscular Re-education, Patient/Caregiver Education, Self-Care/Home Management,Soft Tissue Mobilization,Taping, Therapeutic Activities, Therapeutic Exercises, Vestibular Rehabilitation Modalities Cold Pack/Ice Massage,Electric Stimulation,Hot Packs, Infrared Therapy,Traction- Mechanical,Ultrasound Next Visit Focus/Plan Next Note Type Treatment Note Next Visit Plan work on neural tension down LLE and trace and isolate ( lumbar to SI to HS, calf) w/ nerve glides manual to neck to improve rotational and SB ankle jt mobs for DF Plan of Care Dates Plan of Care Start Date 09/08/24 Plan of Care End Date 11/11/24 Electronically Signed by: China Aguirre, PT 09/08/24 [id number] If you are in agreement with this Plan of Care, please return a signed and dated copy. I have reviewed this Plan of Care and certify that the skilled therapy services above are required to meet the patient?s needs. Physician Signature Date Printed Name and Credentials Clinical Instructor Signature Printed Name and Credentials
--- NOTE | 2024-09-27 15:00 | PT.OTN ---
Current Diagnoses Unspecified Eustachian tube disorder, bilateral (09/27/24) Arthropathy of bilateral temporomandibular joint (09/27/24) Plantar fascial fibromatosis (09/27/24) Fibromyalgia (09/27/24) Physical Therapy Treatment Note PT-OP-A Visit Information Start: 01/29/24 11:36 Freq: Status: Active Protocol: Document 09/27/24 13:49 [facility] (Rec: 09/27/24 14:59 [facility] [id number]) Out-Patient Physical Therapy Visit Information Visit Information Visit Type Treatment Note Visit Note 11/29 Visit Start Time 13:51 Visit Stop Time 14:31 Visit Number 20 Number of DIESEL CRANE OPERATOR Visits 0 PT-OP-B Current Condition Start: 01/29/24 11:36 Freq: Status: Active Protocol: Document 03/04/24 10:40 [facility] (Rec: 03/04/24 13:48 [facility] [id number]) Current Condition History of Current Condition Onset Date about 1.5 years pt thinks Current Complaints Jaw tension, neck pain, ear unable to clear History of Current Condition Pt has pressure where she can' t clear her ears. L has gotten better and R still can't clear. Eardrum looks normal, hearing normal, no fluid. ENT mentioned poking hole in eardrum . Going up/down hills/ elevation can't get R ear to clear and pressure just builds up. She does have B jaw tension. She has been told she may be a candidate for double jaw surgery. She went and saw a specialized doctor in [place]. She got a mouthguard for at night and has had it for 2 weeks and is not sure what she thinks of it. when she wears it,s he has to keep moving her jaw and has bite plates to reset her bite after . 1x/week she wears her old nightguard. She is waiting to do another sleep study. She is in a lot of stress currently and in December, she had a weird thing happen weshawn carrera felt like she wasn't really there. It was kind of how she felt after her covid vaccine. She started feeling worse and layed down where dizzy and nauseated. It got bad enough that she talked to her friend who was a nurse and 911 was called. Vitals were checked by EMT and told she was having a panic attack. She saw her primary the next day. Sometimes it feels like she is carrying so much overwhelm that it becomes beyond what her body can handle. She is seeing counselor. Has had head pressure when bends over also . She has had imaging of brain and nothing showed. Her head aches, but she doesn't have DANIEL often. She does have neck pain and sometimes when she wakes up, she can hardly move it. She is seeing a chiro which helps her neck but hasn' t changed the head pressure or the ear clearing. EKG has been done by EMT and looked normal. Pt reports L ankle occ feels difficulty w/down stairs and just feels tight down L leg. 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 Treatment Goals Patient/Caregiver Goals improve ear ability to clear, jaw tension PT-OP-C Subjective Start: 01/29/24 11:36 Freq: Status: Active Protocol: Document 09/27/24 13:49 [facility] (Rec: 09/27/24 14:59 [facility] [id number]) OP-PT Subjective Patient Comments Patient Comments Pt reports she went to see a PT at podiatry and is doing exercises for those. Legs still feel really tight. She has the appt w/Dr. Aguirre on to determine if she is going to get tubes in ears. She has had a lot of stress w /insurance changes and family issues. upper L arm has been bothering. Door did slam onto that area. Feels like she tweaked it. Had problems before this too. Unsure what kind of strain she did to it. Scared it is going to turn into something. Has orthotics on order now. PT-OP-F Manual Assessment Start: 01/29/24 11:36 Freq: Status: Active Protocol: Document 03/04/24 10:40 [facility] (Rec: 03/04/24 13:48 [facility] [id number]) Manual Assessments Soft Tissue Assessment Soft Tissue Mobility Assessment tenderness and tightness throguhout neck and cranium Joint Mobility Assessment Joint Mobility Assessment ant shearing TMJ-occ clicking R>L; ant shearing L>R w/jaw opening; post shear R>L w/ closing PT-OP-J Posture/Palpation/Skin Start: 01/29/24 11:36 Freq: Status: Active Protocol: Document 03/04/24 10:40 [facility] (Rec: 03/04/24 13:48 [facility] [id number]) Posture Evaluation Roldan Postural Classification System Roldan Postural Classifications Posterior/Anterior Comments Posture Comments head R SB; R scap >L abd, L shoulder higher, fwd head, inc thoracic kyphosis PT-OP-K Range of Motion Start: 01/29/24 11:36 Freq: Status: Active Protocol: Document 09/08/24 09:53 [facility] (Rec: 09/08/24 10:48 [facility] [id number]) Cervical Spine Range of Motion Cervical Spine Active Degrees Flexion 68 Extension 60 Rotation Left 52 Rotation Right 55 Lateral Flexion Left 34 Lateral Flexion Right 35 Comments tight w/rot & SB TMJ Range of Motion Jaw Openning Jaw Openning (mm) 34 Ankle and Foot Goniometric Range of Motion Ankle and Foot Right Active Dorsiflexion with Knee Flexed 5 Dorsiflexion with Knee Extended 0 Left Active Dorsiflexion with Knee Flexed 7 Dorsiflexion with Knee Extended 4 Comments tension w/DF only PT-OP-L Special Tests Start: 01/29/24 11:36 Freq: Status: Active Protocol: Document 03/04/24 10:40 [facility] (Rec: 03/04/24 13:48 [facility] [id number]) Special Tests Cervical Spine Special Tests cranial n screen Test Results neg except some saccades noted w/smooth pursuit atlas/axis shear Test Results neg tectoral membrane Test Results neg arterial screening Test Results position screen neg Comments BP:168/68; ausciltation of carotid and heart WNL Alar Ligament Test Results neg spurling Test Results neg-just pressure Traction Test Results relief-dec pressure PT-OP-M Strength Start: 01/29/24 11:36 Freq: Status: Active Protocol: Document 05/18/24 13:51 [facility] (Rec: 05/18/24 16:44 [facility] [id number]) Ankle/Foot Strength Ankle and Foot Manual Muscle Testing Left Dorsiflexion (L4) 4+ Good+ Plantarflexion (S1) 2+ Poor+ Inversion 4+ Good+ Eversion (S1) 5 Normal Comments unable to do heel raises Toe Strength Toe Manual Muscle Testing Left Flexion 4 Good Extension 5 Normal Comments all toes PT-OP-Q Treatments Start: 01/29/24 11:36 Freq: Status: Active Protocol: Document 09/27/24 13:49 [facility] (Rec: 09/27/24 14:59 [facility] [id number]) Manual Therapy Treatment Consent Patient gave verbal consent for manual Yes treatment Soft Tissue Mobilization neck Body Location R>L scalnes, SCM Mobilization Type Rolling,Sustained Pressure, Other jaw Body Location R masseter andtemporalis Mobilization Type Myofascial Release Comments w/opening head Body Location R>L cranium fascia Mobilization Type Myofascial Release Intensity/Depth Superficial Joint Mobilizations cranial Comments inf (lat aspect of zygomatic), AP mastoid rib Comments PA L rib 6 c/r scap elevation TMJ Comments ant R cervical Comments L transverse c1 c/r thoracic Comments PA T1-3 c/r; transverse T2 R c /r PT-OP-R Modalities Start: 01/29/24 11:36 Freq: Status: Active Protocol: Document 07/14/24 09:45 [facility] (Rec: 07/14/24 10:36 SP [id number]) Hot Pack/Cold Pack Treatment Cold Pack Location Jaw, R>L Patient Position Hooklying Patient Tolerance Good Comments less R jaw irritation PT-OP-T Assessment and Plan Start: 01/29/24 11:36 Freq: Status: Active Protocol: Document 09/27/24 13:49 [facility] (Rec: 09/27/24 14:59 [facility] [id number]) Physical Therapy Assessment Goals ankle ROM Short Term Goal (STG) Pt will improve DF to neutral in knee ext position to dec strain on heel B 07/21-improved L>R STG Duration achieed 09/08 Correction Goal (LTG) Pt will have DF to at least 5 deg in knee ext B and at least 8 deg in knee flex position B to allow for normal gait mehcanics 10-L>R improved 09/08-slowly improving LTG Duration 11/08/24 foot Correction Goal (LTG) Pt will report no pain greater than 2/10 when first getting up in AM and after sitting extended in heel 07/21--04/28 but not as much as it used to be 09/08-depends on the day 4.5-7 ; overall feels better more often LTG Duration 11/08/24 pain Correction Goal (LTG) Pt will report a 75% decrease in feeling of head, neck and jaw tension in order to participate in daily life w/ less difficulty 05/18-has had a lot of stress, feels like neck has improved. unsure about jaw 07/21-unsure d/t so much stress 09/08-inc recently w/inc stress for cervical tension, jaw tension still present LTG Duration 11/08/24 ROM Short Term Goal (STG) pt will have at least 35 mm of opening of jaw w/o inc jaw tension 03/24/24: jaw 34cm arrival, not pain but feel clunk on R. 05/18-mild tightness 34 mm 07/14/24: 33 mm, no pain but mild tightness 07/21-28mm w/tightness 09/08-34 mm improved-less tightness feeling STG Duration 09/28 Correction Goal (LTG) Pt will have full cervical ROM w/o inc pain or feeling off 05/18 improved significnat 09/08-improved comfort w/flex and ext and improved equal SB but does feel res LTG Duration 10/22/24 ear Correction Goal (LTG) Pt will report dec ear tension and symptoms w/o inc discomfort when driving and changing elevations. 05/18 improved overall but still limited 07/21-worse recently 09/08-improved a little; L ear feels like it would be okay if R stopped; R ear improved about 20% LTG Duration 11/11/24 Assessment Summary Assessment Pt reports some relief in head and ear w/manual today with feeling of ear wanting to fully clear when manual done. Physical Therapy Plan Frequency and Duration Frequency of Treatment 1-2x/wk Duration of treatment (weeks) 8 Plan of Care Start Date 09/08/24 Plan of Care End Date 11/11/24 Next Visit Focus/Plan Next Note Type Treatment Note Next Visit Plan cont to work on cranial mobility and upper cerivcal mobility to dec ear symptoms
--- NOTE | 2024-10-14 15:16 | PT.OTN ---
Current Diagnoses Unspecified Eustachian tube disorder, bilateral (10/14/24) Arthropathy of bilateral temporomandibular joint (10/14/24) Plantar fascial fibromatosis (10/14/24) Fibromyalgia (10/14/24) Physical Therapy Treatment Note PT-OP-A Visit Information Start: 01/29/24 11:36 Freq: Status: Active Protocol: Document 10/14/24 14:36 SP (Rec: 10/14/24 15:26 SP [id number]) Out-Patient Physical Therapy Visit Information Visit Information Visit Type Treatment Note Visit Note 12/27 Visit Start Time 14:36 Visit Stop Time 15:16 Visit Number 21 Number of SHOE STOCK ASSOCIATE Visits 1 PT-OP-B Current Condition Start: 01/29/24 11:36 Freq: Status: Active Protocol: Document 03/04/24 10:40 [facility] (Rec: 03/04/24 13:48 [facility] [id number]) Current Condition History of Current Condition Onset Date about 1.5 years pt thinks Current Complaints Jaw tension, neck pain, ear unable to clear History of Current Condition Pt has pressure where she can' t clear her ears. L has gotten better and R still can't clear. Eardrum looks normal, hearing normal, no fluid. ENT mentioned poking hole in eardrum . Going up/down hills/ elevation can't get R ear to clear and pressure just builds up. She does have B jaw tension. She has been told she may be a candidate for double jaw surgery. She went and saw a specialized doctor in [place]. She got a mouthguard for at night and has had it for 2 weeks and is not sure what she thinks of it. when she wears it,s he has to keep moving her jaw and has bite plates to reset her bite after . 1x/week she wears her old nightguard. She is waiting to do another sleep study. She is in a lot of stress currently and in December, she had a weird thing happen weshawn carrera felt like she wasn't really there. It was kind of how she felt after her covid vaccine. She started feeling worse and layed down where dizzy and nauseated. It got bad enough that she talked to her friend who was a nurse and 911 was called. Vitals were checked by EMT and told she was having a panic attack. She saw her primary the next day. Sometimes it feels like she is carrying so much overwhelm that it becomes beyond what her body can handle. She is seeing counselor. Has had head pressure when bends over also . She has had imaging of brain and nothing showed. Her head aches, but she doesn't have DANIEL often. She does have neck pain and sometimes when she wakes up, she can hardly move it. She is seeing a chiro which helps her neck but hasn' t changed the head pressure or the ear clearing. EKG has been done by EMT and looked normal. Pt reports L ankle occ feels difficulty w/down stairs and just feels tight down L leg. 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 Treatment Goals Patient/Caregiver Goals improve ear ability to clear, jaw tension PT-OP-C Subjective Start: 01/29/24 11:36 Freq: Status: Active Protocol: Document 10/14/24 14:36 SP (Rec: 10/14/24 15:26 SP [id number]) OP-PT Subjective Patient Comments Patient Comments Pt reports feels better after PT. She stated did ok lifting prime rib into lower oven yesterday. Arrival R ear feels really full. Wants to work on R neck tightness at occiput , upper jaw reduce ear fullness and L plantar fascitis. Pt stated changes insurance potentially in [place] or [employer] . PT-OP-F Manual Assessment Start: 01/29/24 11:36 Freq: Status: Active Protocol: Document 03/04/24 10:40 [facility] (Rec: 03/04/24 13:48 [facility] [id number]) Manual Assessments Soft Tissue Assessment Soft Tissue Mobility Assessment tenderness and tightness throguhout neck and cranium Joint Mobility Assessment Joint Mobility Assessment ant shearing TMJ-occ clicking R>L; ant shearing L>R w/jaw opening; post shear R>L w/ closing PT-OP-J Posture/Palpation/Skin Start: 01/29/24 11:36 Freq: Status: Active Protocol: Document 03/04/24 10:40 [facility] (Rec: 03/04/24 13:48 [facility] [id number]) Posture Evaluation Roldan Postural Classification System Roldan Postural Classifications Posterior/Anterior Comments Posture Comments head R SB; R scap >L abd, L shoulder higher, fwd head, inc thoracic kyphosis PT-OP-K Range of Motion Start: 01/29/24 11:36 Freq: Status: Active Protocol: Document 09/08/24 09:53 [facility] (Rec: 09/08/24 10:48 [facility] [id number]) Cervical Spine Range of Motion Cervical Spine Active Degrees Flexion 68 Extension 60 Rotation Left 52 Rotation Right 55 Lateral Flexion Left 34 Lateral Flexion Right 35 Comments tight w/rot & SB TMJ Range of Motion Jaw Openning Jaw Openning (mm) 34 Ankle and Foot Goniometric Range of Motion Ankle and Foot Right Active Dorsiflexion with Knee Flexed 5 Dorsiflexion with Knee Extended 0 Left Active Dorsiflexion with Knee Flexed 7 Dorsiflexion with Knee Extended 4 Comments tension w/DF only PT-OP-L Special Tests Start: 01/29/24 11:36 Freq: Status: Active Protocol: Document 03/04/24 10:40 [facility] (Rec: 03/04/24 13:48 [facility] [id number]) Special Tests Cervical Spine Special Tests cranial n screen Test Results neg except some saccades noted w/smooth pursuit atlas/axis shear Test Results neg tectoral membrane Test Results neg arterial screening Test Results position screen neg Comments BP:168/68; ausciltation of carotid and heart WNL Alar Ligament Test Results neg spurling Test Results neg-just pressure Traction Test Results relief-dec pressure PT-OP-M Strength Start: 01/29/24 11:36 Freq: Status: Active Protocol: Document 05/18/24 13:51 [facility] (Rec: 05/18/24 16:44 [facility] [id number]) Ankle/Foot Strength Ankle and Foot Manual Muscle Testing Left Dorsiflexion (L4) 4+ Good+ Plantarflexion (S1) 2+ Poor+ Inversion 4+ Good+ Eversion (S1) 5 Normal Comments unable to do heel raises Toe Strength Toe Manual Muscle Testing Left Flexion 4 Good Extension 5 Normal Comments all toes PT-OP-Q Treatments Start: 01/29/24 11:36 Freq: Status: Active Protocol: Document 10/14/24 14:36 SP (Rec: 10/14/24 15:33 SP [id number]) Manual Therapy Treatment Soft Tissue Mobilization L foot Body Location plantarfascia, medial calcaneus back of arch Mobilization Type Instrument Assisted,Myofascial Release,Strumming Intensity/Depth Moderate Body Position Hooklying Comments manual STMs with good feedback tension reduction jaw Body Location R masseter, temporalis, digastric Mobilization Type Myofascial Release Comments intraoral sensitive palpation superior masseter, light pressure diagastric & temporalis MWM w/opening Joint Mobilizations cranial Grade I Body Position Hooklying Comments cranial decompression: perietal superior glide provided sinus draining, frontal anterior glide less tension behind eyes, temporal ear pull lessened fullness ear canal, mandible caudal glide. L ankle Grade II Comments L calcaneus distraction & lat tilt FM ankle DF/PF AP talus L FM DF/PF PT-OP-R Modalities Start: 01/29/24 11:36 Freq: Status: Active Protocol: Document 07/14/24 09:45 SP (Rec: 07/14/24 10:36 SP [id number]) Hot Pack/Cold Pack Treatment Cold Pack Location Jaw, R>L Patient Position Hooklying Patient Tolerance Good Comments less R jaw irritation PT-OP-T Assessment and Plan Start: 01/29/24 11:36 Freq: Status: Active Protocol: Document 10/14/24 14:36 SP (Rec: 10/14/24 15:26 SP [id number]) Physical Therapy Assessment Goals ankle ROM Short Term Goal (STG) Pt will improve DF to neutral in knee ext position to dec strain on heel B 07/21-improved L>R STG Duration achieed 09/08 Custodial Goal (LTG) Pt will have DF to at least 5 deg in knee ext B and at least 8 deg in knee flex position B to allow for normal gait mehcanics 07/21-L>R improved 09/08-slowly improving LTG Duration 11/08/24 foot Mechanical Unit Repairer Goal (LTG) Pt will report no pain greater than 2/10 when first getting up in AM and after sitting extended in heel 07/21--04/28 but not as much as it used to be 09/08-depends on the day 4.5- ; overall feels better more often LTG Duration 11/08/24 pain Custodial Goal (LTG) Pt will report a 75% decrease in feeling of head, neck and jaw tension in order to participate in daily life w/ less difficulty 05/18-has had a lot of stress, feels like neck has improved. unsure about jaw 07/21-unsure d/t so much stress 09/08-inc recently w/inc stress for cervical tension, jaw tension still present LTG Duration 11/08/24 ROM Short Term Goal (STG) pt will have at least 35 mm of opening of jaw w/o inc jaw tension 03/24/24: jaw 34cm arrival, not pain but feel clunk on R. 05/18-mild tightness 34 mm 07/14/24: 33 mm, no pain but mild tightness 07/21-28mm w/tightness 09/08-34 mm improved-less tightness feeling STG Duration 09/28 Custodial Goal (LTG) Pt will have full cervical ROM w/o inc pain or feeling off 05/18 improved significnat 09/08-improved comfort w/flex and ext and improved equal SB but does feel res LTG Duration 10/22/24 ear Custodial Goal (LTG) Pt will report dec ear tension and symptoms w/o inc discomfort when driving and changing elevations. 05/18 improved overall but still limited 07/21-worse recently 09/08-improved a little; L ear feels like it would be okay if R stopped; R ear improved about 20% LTG Duration 11/11/24 Assessment Summary Assessment Pt reports some relief in neck tightness reduction able to turn head better and open close jaw with less R ear full feeling and feels like sinus draining. Physical Therapy Plan Frequency and Duration Frequency of Treatment 1-2x/wk Duration of treatment (weeks) 8 Plan of Care Start Date 09/08/24 Plan of Care End Date 11/11/24 Therapeutic Interventions Therapeutic Interventions Canalithic Repositioning,Home Exercise Program,Joint Mobilizations,Manual Therapy, Neuromuscular Re-education, Patient/Caregiver Education, Self-Care/Home Management,Soft Tissue Mobilization,Taping, Therapeutic Activities, Therapeutic Exercises, Vestibular Rehabilitation Modalities Cold Pack/Ice Massage,Electric Stimulation,Hot Packs, Infrared Therapy,Traction- Mechanical,Ultrasound Next Visit Focus/Plan Next Note Type Treatment Note Next Visit Plan Discuss with PT if beneficial manual intramuscular techniques for tension reduction around TMJ. PT POC: cont to work on cranial mobility and upper cerivcal mobility to dec ear symptoms
--- NOTE | 2024-10-19 18:55 | PT.OTN ---
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/24) Plantar fascial fibromatosis (10/19/24) Fibromyalgia (10/19/24) Physical Therapy Treatment Note PT-OP-A Visit Information Start: 01/29/24 11:36 Freq: Status: Active Protocol: Document 10/19/24 14:36 [facility] (Rec: 10/19/24 18:55 [facility] [id number]) Out-Patient Physical Therapy Visit Information Visit Information Visit Type Progress Note Visit Start Time 14:40 Visit Stop Time 15:18 Visit Number 22 Number of [employer] Visits 0 PT-OP-B Current Condition Start: 01/29/24 11:36 Freq: Status: Active Protocol: Document 03/04/24 10:40 [facility] (Rec: 03/04/24 13:48 [facility] [id number]) Current Condition History of Current Condition Onset Date about 1.5 years pt thinks Current Complaints Jaw tension, neck pain, ear unable to clear History of Current Condition Pt has pressure where she can' t clear her ears. L has gotten better and R still can't clear. Eardrum looks normal, hearing normal, no fluid. ENT mentioned poking hole in eardrum . Going up/down hills/ elevation can't get R ear to clear and pressure just builds up. She does have B jaw tension. She has been told she may be a candidate for double jaw surgery. She went and saw a specialized doctor in [place]. She got a mouthguard for at night and has had it for 2 weeks and is not sure what she thinks of it. when she wears it,s he has to keep moving her jaw and has bite plates to reset her bite after . 1x/week she wears her old nightguard. She is waiting to do another sleep study. She is in a lot of stress currently and in December, she had a weird thing happen renetta carrera felt like she wasn't really there. It was kind of how she felt after her covid vaccine. She started feeling worse and layed down where dizzy and nauseated. It got bad enough that she talked to her friend who was a nurse and 911 was called. Vitals were checked by EMT and told she was having a panic attack. She saw her primary the next day. Sometimes it feels like she is carrying so much overwhelm that it becomes beyond what her body can handle. She is seeing counselor. Has had head pressure when bends over also . She has had imaging of brain and nothing showed. Her head aches, but she doesn't have DANIEL often. She does have neck pain and sometimes when she wakes up, she can hardly move it. She is seeing a chiro which helps her neck but hasn' t changed the head pressure or the ear clearing. EKG has been done by EMT and looked normal. Pt reports L ankle occ feels difficulty w/down stairs and just feels tight down L leg. 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 Treatment Goals Patient/Caregiver Goals improve ear ability to clear, jaw tension PT-OP-C Subjective Start: 01/29/24 11:36 Freq: Status: Active Protocol: Document 10/19/24 14:36 [facility] (Rec: 10/19/24 18:55 [facility] [id number]) OP-PT Subjective Patient Comments Patient Comments Pt reports she decided not to proceed w/tubes. [place] like last session was really helpful. She does think there is some clenching. Feels like ear clearing is not as bad. Feels like foot is getting better. Leg feels tight and sore but pain is going down in foot. stretching most days. PT-OP-F Manual Assessment Start: 01/29/24 11:36 Freq: Status: Active Protocol: Document 03/04/24 10:40 [facility] (Rec: 03/04/24 13:48 [facility] [id number]) Manual Assessments Soft Tissue Assessment Soft Tissue Mobility Assessment tenderness and tightness throguhout neck and cranium Joint Mobility Assessment Joint Mobility Assessment ant shearing TMJ-occ clicking R>L; ant shearing L>R w/jaw opening; post shear R>L w/ closing PT-OP-J Posture/Palpation/Skin Start: 01/29/24 11:36 Freq: Status: Active Protocol: Document 03/04/24 10:40 [facility] (Rec: 03/04/24 13:48 [facility] [id number]) Posture Evaluation Roldan Postural Classification System Roldan Postural Classifications Posterior/Anterior Comments Posture Comments head R SB; R scap >L abd, L shoulder higher, fwd head, inc thoracic kyphosis PT-OP-K Range of Motion Start: 01/29/24 11:36 Freq: Status: Active Protocol: Document 10/19/24 14:36 [facility] (Rec: 10/19/24 18:55 [id number]) Cervical Spine Range of Motion Cervical Spine Active Degrees Flexion 70 Extension 59 Rotation Left 64 Rotation Right 70 Lateral Flexion Left 34 Lateral Flexion Right 33 TMJ Range of Motion Jaw Openning Jaw Openning (mm) 33 Comments Comments minimal deviation Ankle and Foot Goniometric Range of Motion Ankle and Foot Right Active Dorsiflexion with Knee Flexed 7 Dorsiflexion with Knee Extended 2 Left Active Dorsiflexion with Knee Flexed 12 Dorsiflexion with Knee Extended 5 PT-OP-L Special Tests Start: 01/29/24 11:36 Freq: Status: Active Protocol: Document 03/04/24 10:40 [facility] (Rec: 03/04/24 13:48 [id number]) Special Tests Cervical Spine Special Tests cranial n screen Test Results neg except some saccades noted w/smooth pursuit atlas/axis shear Test Results neg tectoral membrane Test Results neg arterial screening Test Results position screen neg Comments BP:168/68; ausciltation of carotid and heart WNL Alar Ligament Test Results neg spurling Test Results neg-just pressure Traction Test Results relief-dec pressure PT-OP-M Strength Start: 01/29/24 11:36 Freq: Status: Active Protocol: Document 05/18/24 13:51 [facility] (Rec: 05/18/24 16:44 [facility] [id number]) Ankle/Foot Strength Ankle and Foot Manual Muscle Testing Left Dorsiflexion (L4) 4+ Good+ Plantarflexion (S1) 2+ Poor+ Inversion 4+ Good+ Eversion (S1) 5 Normal Comments unable to do heel raises Toe Strength Toe Manual Muscle Testing Left Flexion 4 Good Extension 5 Normal Comments all toes PT-OP-Q Treatments Start: 01/29/24 11:36 Freq: Status: Active Protocol: Document 10/19/24 14:36 [facility] (Rec: 10/19/24 18:55 [facility] [id number]) Therapeutic Exercises Sitting Exercises self STMs Sitting Exercise Name ear pull, self massage to temporalis, masseter, SO, SCM Reps/Minutes 5 min Other Exercises ROM Other Exercise Name cervical, jaw, ankleB Manual Therapy Treatment Soft Tissue Mobilization neck Body Location R SCM Mobilization Type Rolling,Sustained Pressure, Other jaw Body Location R masseter, temporalis, digastric Mobilization Type Myofascial Release Comments w/opening head Body Location R>L cranium fascia Mobilization Type Myofascial Release Intensity/Depth Superficial Joint Mobilizations cranial Comments zygomatic decompression R TMJ Comments AP PT-OP-R Modalities Start: 01/29/24 11:36 Freq: Status: Active Protocol: Document 07/14/24 09:45 [facility] (Rec: 07/14/24 10:36 SP [id number]) Hot Pack/Cold Pack Treatment Cold Pack Location Jaw, R>L Patient Position Hooklying Patient Tolerance Good Comments less R jaw irritation PT-OP-T Assessment and Plan Start: 01/29/24 11:36 Freq: Status: Active Protocol: Document 10/19/24 14:36 [facility] (Rec: 10/19/24 18:55 [facility] [id number]) Physical Therapy Assessment Goals ankle ROM Short Term Goal (STG) Pt will improve DF to neutral in knee ext position to dec strain on heel B 07/21-improved L>R STG Duration achieved 09/08 Longterm Goal (LTG) Pt will have DF to at least 5 deg in knee ext B and at least 8 deg in knee flex position B to allow for normal gait mehcanics 07/21-L>R improved 09/08-slowly improving LTG Duration 11/18/24 foot Longterm Goal (LTG) Pt will report no pain greater than 2/10 when first getting up in AM and after sitting extended in heel 07/21-6-04/28 but not as much as it used to be 09/08-depends on the day 4.5- ; overall feels better more often 10/19-01/27 average; max 5.5/10 LTG Duration 11/18/24 pain [employer] Goal (LTG) Pt will report a 75% decrease in feeling of head, neck and jaw tension in order to participate in daily life w/ less difficulty 05/18-has had a lot of stress, feels like neck has improved. unsure about jaw 07/21-unsure d/t so much stress 09/08-inc recently w/inc stress for cervical tension, jaw tension still present 10/19-tension in jaw, neck and ear area on R LTG Duration 11/08/24 ROM Short Term Goal (STG) pt will have at least 35 mm of opening of jaw w/o inc jaw tension 03/24/24: jaw 34cm arrival, not pain but feel clunk on R. 05/18-mild tightness 34 mm 07/14/24: 33 mm, no pain but mild tightness 07/21-28mm w/tightness 09/08-34 mm improved-less tightness feeling 10/19-no clicking/clunking, 33 mm and feels okay at end range STG Duration 11/08 [employer] Goal (LTG) Pt will have full cervical ROM w/o inc pain or feeling off 05/18 improved significnat 09/08-improved comfort w/flex and ext and improved equal SB but does feel res 10/19- LTG Duration achieved 10/19 ear Longterm Goal (LTG) Pt will report dec ear tension and symptoms w/o inc discomfort when driving and changing elevations. 05/18 improved overall but still limited 07/21-worse recently 09/08-improved a little; L ear feels like it would be okay if R stopped; R ear improved about 20% 10/19-30% improvement; L feels overall good. LTG Duration 11/18/24 Assessment Summary Assessment Pt reports release in R sinuses w/less full feeling w/ manual. She cont to improve w/ jaw tracking and has less deviation and clunking w/ opening/closing. She has improved L ankle ROM and is reporting less pain during her day. Cont PT to focus on improvement of pain and mobility. Physical Therapy Plan Frequency and Duration Frequency of Treatment 1-2x/wk Duration of treatment (weeks) 5 Plan of Care Start Date 10/19/24 Plan of Care End Date 11/23/24 Therapeutic Interventions Therapeutic Interventions Canalithic Repositioning,Home Exercise Program,Joint Mobilizations,Manual Therapy, Neuromuscular Re-education, Patient/Caregiver Education, Self-Care/Home Management,Soft Tissue Mobilization,Taping, Therapeutic Activities, Therapeutic Exercises, Vestibular Rehabilitation Modalities Cold Pack/Ice Massage,Electric Stimulation,Hot Packs, Infrared Therapy,Traction- Mechanical,Ultrasound Next Visit Focus/Plan Next Note Type Treatment Note Next Visit Plan cont to work on cranial mobility and upper cerivcal mobility to dec ear symptoms; review need for self release
--- NOTE | 2024-10-27 16:53 | PT.OTN ---
Current Diagnoses Unspecified Eustachian tube disorder, bilateral (10/27/24) Arthropathy of bilateral temporomandibular joint (10/27/24) Plantar fascial fibromatosis (10/27/24) Fibromyalgia (10/27/24) Physical Therapy Treatment Note PT-OP-A Visit Information Start: 01/29/24 11:36 Freq: Status: Active Protocol: Document 10/27/24 14:36 [facility] (Rec: 10/27/24 16:53 [facility] [id number]) Out-Patient Physical Therapy Visit Information Visit Information Visit Type Treatment Note Visit Start Time 14:35 Visit Stop Time 15:15 Visit Number 23 Number of MARKETING [employer] Visits 0 PT-OP-B Current Condition Start: 01/29/24 11:36 Freq: Status: Active Protocol: Document 03/04/24 10:40 [facility] (Rec: 03/04/24 13:48 [facility] [id number]) Current Condition History of Current Condition Onset Date about 1.5 years pt thinks Current Complaints Jaw tension, neck pain, ear unable to clear History of Current Condition Pt has pressure where she can' t clear her ears. L has gotten better and R still can't clear. Eardrum looks normal, hearing normal, no fluid. ENT mentioned poking hole in eardrum . Going up/down hills/ elevation can't get R ear to clear and pressure just builds up. She does have B jaw tension. She has been told she may be a candidate for double jaw surgery. She went and saw a specialized doctor in [place]. She got a mouthguard for at night and has had it for 2 weeks and is not sure what she thinks of it. when she wears it,s he has to keep moving her jaw and has bite plates to reset her bite after . 1x/week she wears her old nightguard. She is waiting to do another sleep study. She is in a lot of stress currently and in December, she had a weird thing happen renetta carrera felt like she wasn't really there. It was kind of how she felt after her covid vaccine. She started feeling worse and layed down where dizzy and nauseated. It got bad enough that she talked to her friend who was a nurse and 911 was called. Vitals were checked by EMT and told she was having a panic attack. She saw her primary the next day. Sometimes it feels like she is carrying so much overwhelm that it becomes beyond what her body can handle. She is seeing counselor. Has had head pressure when bends over also . She has had imaging of brain and nothing showed. Her head aches, but she doesn't have DANIEL often. She does have neck pain and sometimes when she wakes up, she can hardly move it. She is seeing a chiro which helps her neck but hasn' t changed the head pressure or the ear clearing. EKG has been done by EMT and looked normal. Pt reports L ankle occ feels difficulty w/down stairs and just feels tight down L leg. 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 Treatment Goals Patient/Caregiver Goals improve ear ability to clear, jaw tension PT-OP-C Subjective Start: 01/29/24 11:36 Freq: Status: Active Protocol: Document 10/27/24 14:36 [facility] (Rec: 10/27/24 16:53 [facility] [id number]) OP-PT Subjective Patient Comments Patient Comments Pt feels like ear is getting better. She feels like the past 2 sessions have seemed to help. L ankle feels out of joint. She has tried all of her AROM and stretches and none has helped. Started last night. Heel is improving slowly with stretches and self mobs. Heel pain is there but not screaming at her. PT-OP-F Manual Assessment Start: 01/29/24 11:36 Freq: Status: Active Protocol: Document 03/04/24 10:40 [facility] (Rec: 03/04/24 13:48 [facility] [id number]) Manual Assessments Soft Tissue Assessment Soft Tissue Mobility Assessment tenderness and tightness throguhout neck and cranium Joint Mobility Assessment Joint Mobility Assessment ant shearing TMJ-occ clicking R>L; ant shearing L>R w/jaw opening; post shear R>L w/ closing PT-OP-J Posture/Palpation/Skin Start: 01/29/24 11:36 Freq: Status: Active Protocol: Document 03/04/24 10:40 [facility] (Rec: 03/04/24 13:48 [facility] [id number]) Posture Evaluation Roldan Postural Classification System Roldan Postural Classifications Posterior/Anterior Comments Posture Comments head R SB; R scap >L abd, L shoulder higher, fwd head, inc thoracic kyphosis PT-OP-K Range of Motion Start: 01/29/24 11:36 Freq: Status: Active Protocol: Document 10/19/24 14:36 [facility] (Rec: 10/19/24 18:55 [id number]) Cervical Spine Range of Motion Cervical Spine Active Degrees Flexion 70 Extension 59 Rotation Left 64 Rotation Right 70 Lateral Flexion Left 34 Lateral Flexion Right 33 TMJ Range of Motion Jaw Openning Jaw Openning (mm) 33 Comments Comments minimal deviation Ankle and Foot Goniometric Range of Motion Ankle and Foot Right Active Dorsiflexion with Knee Flexed 7 Dorsiflexion with Knee Extended 2 Left Active Dorsiflexion with Knee Flexed 12 Dorsiflexion with Knee Extended 5 PT-OP-L Special Tests Start: 01/29/24 11:36 Freq: Status: Active Protocol: Document 03/04/24 10:40 [facility] (Rec: 03/04/24 13:48 [id number] Special Tests Cervical Spine Special Tests cranial n screen Test Results neg except some saccades noted w/smooth pursuit atlas/axis shear Test Results neg tectoral membrane Test Results neg arterial screening Test Results position screen neg Comments BP:168/68; ausciltation of carotid and heart WNL Alar Ligament Test Results neg spurling Test Results neg-just pressure Traction Test Results relief-dec pressure PT-OP-M Strength Start: 01/29/24 11:36 Freq: Status: Active Protocol: Document 05/18/24 13:51 [facility] (Rec: 05/18/24 16:44 [id number]) Ankle/Foot Strength Ankle and Foot Manual Muscle Testing Left Dorsiflexion (L4) 4+ Good+ Plantarflexion (S1) 2+ Poor+ Inversion 4+ Good+ Eversion (S1) 5 Normal Comments unable to do heel raises Toe Strength Toe Manual Muscle Testing Left Flexion 4 Good Extension 5 Normal Comments all toes PT-OP-Q Treatments Start: 01/29/24 11:36 Freq: Status: Active Protocol: Document 10/27/24 14:36 [facility] (Rec: 10/27/24 16:53 [facility] [id number]) Therapeutic Exercises Sitting Exercises self STMs Sitting Exercise Name self PA R jaw closing-cues needed for placement Standing Exercises ankle mobility Standing Exercise Name self release B ankle DF Side bilateral Equipment Used L5 Reps/Minutes 10 Manual Therapy Treatment Consent Patient gave verbal consent for manual Yes treatment Soft Tissue Mobilization calf Body Location L calf Mobilization Type Instrument Assisted Comments w/ percussion head Body Location R>L cranium fascia Mobilization Type Myofascial Release Intensity/Depth Superficial Joint Mobilizations cranial Comments R palentine lat, R sphenoid intraoral post, L sup L ankle Comments L distraction calcaneus and talus L AP talus L AP tib distal L cuneiform 1-2 manualand percussion PT-OP-R Modalities Start: 01/29/24 11:36 Freq: Status: Active Protocol: Document 07/14/24 09:45 [facility] (Rec: 07/14/24 10:36 [facility] [id number]) Hot Pack/Cold Pack Treatment Cold Pack Location Jaw, R>L Patient Position Hooklying Patient Tolerance Good Comments less R jaw irritation PT-OP-T Assessment and Plan Start: 01/29/24 11:36 Freq: Status: Active Protocol: Document 10/27/24 14:36 [facility] (Rec: 10/27/24 16:53 [facility] [id number]) Physical Therapy Assessment Goals ankle ROM Short Term Goal (STG) Pt will improve DF to neutral in knee ext position to dec strain on heel B 07/21-improved L>R STG Duration achieved 09/08 Care Home Goal (LTG) Pt will have DF to at least 5 deg in knee ext B and at least 8 deg in knee flex position B to allow for normal gait mehcanics 07/21-L>R improved 09/08-slowly improving LTG Duration 11/18/24 foot Horser Up Goal (LTG) Pt will report no pain greater than 2/10 when first getting up in AM and after sitting extended in heel 07/21-6-04/28 but not as much as it used to be 09/08-depends on the day 4.5- ; overall feels better more often 10/19-01/27 average; max 5.5/10 LTG Duration 11/18/24 pain Care Home Goal (LTG) Pt will report a 75% decrease in feeling of head, neck and jaw tension in order to participate in daily life w/ less difficulty 05/18-has had a lot of stress, feels like neck has improved. unsure about jaw 07/21-unsure d/t so much stress 09/08-inc recently w/inc stress for cervical tension, jaw tension still present 10/19-tension in jaw, neck and ear area on R LTG Duration 11/08/24 ROM Short Term Goal (STG) pt will have at least 35 mm of opening of jaw w/o inc jaw tension 03/24/24: jaw 34cm arrival, not pain but feel clunk on R. 05/18-mild tightness 34 mm 07/14/24: 33 mm, no pain but mild tightness 07/21-28mm w/tightness 09/08-34 mm improved-less tightness feeling 10/19-no clicking/clunking, 33 mm and feels okay at end range STG Duration 11/08 Horser Up Goal (LTG) Pt will have full cervical ROM w/o inc pain or feeling off 05/18 improved significnat 09/08-improved comfort w/flex and ext and improved equal SB but does feel res 10/19- LTG Duration achieved 10/19 ear Care Home Goal (LTG) Pt will report dec ear tension and symptoms w/o inc discomfort when driving and changing elevations. 05/18 improved overall but still limited 07/21-worse recently 09/08-improved a little; L ear feels like it would be okay if R stopped; R ear improved about 20% 10/19-30% improvement; L feels overall good. LTG Duration 11/18/24 Assessment Summary Assessment Pt felt much relief w/ankle mobs and noted feeling like got further relief w/manual to jaw/head. demoed good understanding of self release Physical Therapy Plan Frequency and Duration Frequency of Treatment 1-2x/wk Duration of treatment (weeks) 5 Plan of Care Start Date 10/19/24 Plan of Care End Date 11/23/24 Next Visit Focus/Plan Next Note Type Treatment Note Next Visit Plan cont to work on cranial mobility and upper cerivcal mobility to dec ear symptoms; review need for self release
--- NOTE | 2024-11-03 15:08 | PT.OTN ---
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 (Rec: 11/03/24 15:08 [facility] [id number]) Out-Patient Physical Therapy Visit Information Visit Information Visit Type Treatment Note Visit Start Time 13:52 Visit Stop Time 14:30 Visit Number 24 Number of CNC MILLING MACHINIST Visits 0 PT-OP-B Current Condition Start: 01/29/24 11:36 Freq: Status: Active Protocol: Document 03/04/24 10:40 [facility] (Rec: 03/04/24 13:48 [facility] [id number]) Current Condition History of Current Condition Onset Date about 1.5 years pt thinks Current Complaints Jaw tension, neck pain, ear unable to clear History of Current Condition Pt has pressure where she can' t clear her ears. L has gotten better and R still can't clear. Eardrum looks normal, hearing normal, no fluid. ENT mentioned poking hole in eardrum . Going up/down hills/ elevation can't get R ear to clear and pressure just builds up. She does have B jaw tension. She has been told she may be a candidate for double jaw surgery. She went and saw a specialized doctor in [place]. She got a mouthguard for at night and has had it for 2 weeks and is not sure what she thinks of it. when she wears it,s he has to keep moving her jaw and has bite plates to reset her bite after . 1x/week she wears her old nightguard. She is waiting to do another sleep study. She is in a lot of stress currently and in December, she had a weird thing happen renetta carrera felt like she wasn't really there. It was kind of how she felt after her covid vaccine. She started feeling worse and layed down where dizzy and nauseated. It got bad enough that she talked to her friend who was a nurse and 911 was called. Vitals were checked by EMT and told she was having a panic attack. She saw her primary the next day. Sometimes it feels like she is carrying so much overwhelm that it becomes beyond what her body can handle. She is seeing counselor. Has had head pressure when bends over also . She has had imaging of brain and nothing showed. Her head aches, but she doesn't have DANIEL often. She does have neck pain and sometimes when she wakes up, she can hardly move it. She is seeing a chiro which helps her neck but hasn' t changed the head pressure or the ear clearing. EKG has been done by EMT and looked normal. Pt reports L ankle occ feels difficulty w/down stairs and just feels tight down L leg. 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 Treatment Goals Patient/Caregiver Goals improve ear ability to clear, jaw tension PT-OP-C Subjective Start: 01/29/24 11:36 Freq: Status: Active Protocol: Document 11/03/24 13:43 [facility] (Rec: 11/03/24 15:08 [facility] [id number]) OP-PT Subjective Patient Comments Patient Comments Pt reports she saw heel PT this AM. Checked with insurance and okay to see both and it was. She reports yesterday upper L ribacage was painful. neck has been kind of sore. and feels like it is tied in from head to L ribcage pulling. FEeling reduced in ears and it feels like it is staying less btwen treatments. PT-OP-F Manual Assessment Start: 01/29/24 11:36 Freq: Status: Active Protocol: Document 03/04/24 10:40 [facility] (Rec: 03/04/24 13:48 [facility] [id number]) Manual Assessments Soft Tissue Assessment Soft Tissue Mobility Assessment tenderness and tightness throguhout neck and cranium Joint Mobility Assessment Joint Mobility Assessment ant shearing TMJ-occ clicking R>L; ant shearing L>R w/jaw opening; post shear R>L w/ closing PT-OP-J Posture/Palpation/Skin Start: 01/29/24 11:36 Freq: Status: Active Protocol: Document 03/04/24 10:40 [facility] (Rec: 03/04/24 13:48 [facility] [id number]) Posture Evaluation Roldan Postural Classification System Roldan Postural Classifications Posterior/Anterior Comments Posture Comments head R SB; R scap >L abd, L shoulder higher, fwd head, inc thoracic kyphosis PT-OP-K Range of Motion Start: 01/29/24 11:36 Freq: Status: Active Protocol: Document 10/19/24 14:36 [facility] (Rec: 10/19/24 18:55 [facility] [id number]) Cervical Spine Range of Motion Cervical Spine Active Degrees Flexion 70 Extension 59 Rotation Left 64 Rotation Right 70 Lateral Flexion Left 34 Lateral Flexion Right 33 TMJ Range of Motion Jaw Openning Jaw Openning (mm) 33 Comments Comments minimal deviation Ankle and Foot Goniometric Range of Motion Ankle and Foot Right Active Dorsiflexion with Knee Flexed 7 Dorsiflexion with Knee Extended 2 Left Active Dorsiflexion with Knee Flexed 12 Dorsiflexion with Knee Extended 5 PT-OP-L Special Tests Start: 01/29/24 11:36 Freq: Status: Active Protocol: Document 03/04/24 10:40 [id number] Special Tests Cervical Spine Special Tests cranial n screen Test Results neg except some saccades noted w/smooth pursuit atlas/axis shear Test Results neg tectoral membrane Test Results neg arterial screening Test Results position screen neg Comments BP:168/68; ausciltation of carotid and heart WNL Alar Ligament Test Results neg spurling Test Results neg-just pressure Traction Test Results relief-dec pressure PT-OP-M Strength Start: 01/29/24 11:36 Freq: Status: Active Protocol: Document 05/18/24 13:51 [facility] (Rec: 05/18/24 16:44 [facility] [id number]) Ankle/Foot Strength Ankle and Foot Manual Muscle Testing Left Dorsiflexion (L4) 4+ Good+ Plantarflexion (S1) 2+ Poor+ Inversion 4+ Good+ Eversion (S1) 5 Normal Comments unable to do heel raises Toe Strength Toe Manual Muscle Testing Left Flexion 4 Good Extension 5 Normal Comments all toes PT-OP-Q Treatments Start: 01/29/24 11:36 Freq: Status: Active Protocol: Document 11/03/24 13:43 [facility] (Rec: 11/03/24 15:08 [facility] [id number]) Therapeutic Exercises Sidelying Exercises open book Sidelying Exercise Name w/elbow at side Side bilateral Reps/Minutes 6 x8 sec ea Sitting Exercises rotation Side bilateral Reps/Minutes 5 sec w/breaths x5 Standing Exercises stretch Standing Exercise Name 1. elbows straight doorway 2. 90/90 pec Side bilateral Reps/Minutes 30 sec wall posture Standing Exercise Name knees bent focus on lumbar and tspine on wall,chin tuck Reps/Minutes 3 x 15 SH Manual Therapy Treatment Consent Patient gave verbal consent for manual Yes treatment Soft Tissue Mobilization neck Body Location R SCM Mobilization Type Rolling,Sustained Pressure, Other jaw Body Location R masseter, temporalis, digastric Mobilization Type Myofascial Release Comments w/opening head Body Location R>L cranium fascia Mobilization Type Myofascial Release Intensity/Depth Superficial Joint Mobilizations cranial Comments R palentine lat, zygomatic decomrpession R, AP temporal w /chin tuck rib Comments PA rib 1 and 2 L cervical Comments transverse L C1-3 c/r thoracic Comments transverse R T 1 an 2 PT-OP-R Modalities Start: 01/29/24 11:36 Freq: Status: Active Protocol: Document 07/14/24 09:45 [facility] (Rec: 07/14/24 10:36 [facility] [id number]) Hot Pack/Cold Pack Treatment Cold Pack Location Jaw, R>L Patient Position Hooklying Patient Tolerance Good Comments less R jaw irritation PT-OP-T Assessment and Plan Start: 01/29/24 11:36 Freq: Status: Active Protocol: Document 11/03/24 13:43 [facility] (Rec: 11/03/24 15:08 [facility] [id number]) Physical Therapy Assessment Goals ankle ROM Short Term Goal (STG) Pt will improve DF to neutral in knee ext position to dec strain on heel B 07/21-improved L>R STG Duration achieved 09/08 Marketing Programs Manager Goal (LTG) Pt will have DF to at least 5 deg in knee ext B and at least 8 deg in knee flex position B to allow for normal gait mehcanics 07/21-L>R improved 09/08-slowly improving LTG Duration 11/18/24 foot Marketing Programs Manager Goal (LTG) Pt will report no pain greater than 2/10 when first getting up in AM and after sitting extended in heel 07/21--04/28 but not as much as it used to be 09/08-depends on the day 4.5-7 ; overall feels better more often 10/19-01/27 average; max 5.5/10 LTG Duration 11/18/24 pain Marketing Programs Manager Goal (LTG) Pt will report a 75% decrease in feeling of head, neck and jaw tension in order to participate in daily life w/ less difficulty 05/18-has had a lot of stress, feels like neck has improved. unsure about jaw 07/21-unsure d/t so much stress 09/08-inc recently w/inc stress for cervical tension, jaw tension still present 10/19-tension in jaw, neck and ear area on R LTG Duration 11/08/24 ROM Short Term Goal (STG) pt will have at least 35 mm of opening of jaw w/o inc jaw tension 03/24/24: jaw 34cm arrival, not pain but feel clunk on R. 05/18-mild tightness 34 mm 07/14/24: 33 mm, no pain but mild tightness 07/21-28mm w/tightness 09/08-34 mm improved-less tightness feeling 10/19-no clicking/clunking, 33 mm and feels okay at end range STG Duration 11/08 Jail Goal (LTG) Pt will have full cervical ROM w/o inc pain or feeling off 05/18 improved significnat 09/08-improved comfort w/flex and ext and improved equal SB but does feel res 10/19- LTG Duration achieved 10/19 ear Marketing Programs Manager Goal (LTG) Pt will report dec ear tension and symptoms w/o inc discomfort when driving and changing elevations. 05/18 improved overall but still limited 07/21-worse recently 09/08-improved a little; L ear feels like it would be okay if R stopped; R ear improved about 20% 10/19-30% improvement; L feels overall good. LTG Duration 11/18/24 Assessment Summary Assessment Pt required reminder of importance of posture for jaw functiona nd encouraged to wrok on thoracic opening exercises. Improved jaw opening at end of session to 35 mm Physical Therapy Plan Frequency and Duration Frequency of Treatment 1-2x/wk Duration of treatment (weeks) 5 Plan of Care Start Date 10/19/24 Plan of Care End Date 11/23/24 Next Visit Focus/Plan Next Note Type Treatment Note Next Visit Plan cont to work on cranial mobility and upper cerivcal mobility to dec ear symptoms; review chest opening and posture
--- NOTE | 2024-11-10 13:04 | PT.OTN ---
Current Diagnoses Unspecified Eustachian tube disorder, bilateral (11/10/24) Arthropathy of bilateral temporomandibular joint (11/10/24) Plantar fascial fibromatosis (11/10/24) Fibromyalgia (11/10/24) Physical Therapy Treatment Note PT-OP-A Visit Information Start: 01/29/24 11:36 Freq: Status: Active Protocol: Document 11/10/24 10:49 [facility] (Rec: 11/10/24 13:04 [facility] [id number]) Out-Patient Physical Therapy Visit Information Visit Information Visit Type Progress Note Visit Start Time 10:50 Visit Stop Time 11:30 Visit Number 25 Number of INSTRUCTOR TAP DANCING Visits 0 PT-OP-B Current Condition Start: 01/29/24 11:36 Freq: Status: Active Protocol: Document 03/04/24 10:40 [facility] (Rec: 03/04/24 13:48 [facility] [id number]) Current Condition History of Current Condition Onset Date about 1.5 years pt thinks Current Complaints Jaw tension, neck pain, ear unable to clear History of Current Condition Pt has pressure where she can' t clear her ears. L has gotten better and R still can't clear. Eardrum looks normal, hearing normal, no fluid. ENT mentioned poking hole in eardrum . Going up/down hills/ elevation can't get R ear to clear and pressure just builds up. She does have B jaw tension. She has been told she may be a candidate for double jaw surgery. She went and saw a specialized doctor in [place]. She got a mouthguard for at night and has had it for 2 weeks and is not sure what she thinks of it. when she wears it,s he has to keep moving her jaw and has bite plates to reset her bite after . 1x/week she wears her old nightguard. She is waiting to do another sleep study. She is in a lot of stress currently and in December, she had a weird thing happen renetta carrera felt like she wasn't really there. It was kind of how she felt after her covid vaccine. She started feeling worse and layed down where dizzy and nauseated. It got bad enough that she talked to her friend who was a nurse and 911 was called. Vitals were checked by EMT and told she was having a panic attack. She saw her primary the next day. Sometimes it feels like she is carrying so much overwhelm that it becomes beyond what her body can handle. She is seeing counselor. Has had head pressure when bends over also . She has had imaging of brain and nothing showed. Her head aches, but she doesn't have DANIEL often. She does have neck pain and sometimes when she wakes up, she can hardly move it. She is seeing a chiro which helps her neck but hasn' t changed the head pressure or the ear clearing. EKG has been done by EMT and looked normal. Pt reports L ankle occ feels difficulty w/down stairs and just feels tight down L leg. 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 Treatment Goals Patient/Caregiver Goals improve ear ability to clear, jaw tension PT-OP-C Subjective Start: 01/29/24 11:36 Freq: Status: Active Protocol: Document 11/10/24 10:49 [facility] (Rec: 11/10/24 13:04 [facility] [id number]) OP-PT Subjective Patient Comments Patient Comments Pt reports she is very hopeful now because deandre feels like her symptoms are improving despite all the stress in her life that is creating tension. PT-OP-F Manual Assessment Start: 01/29/24 11:36 Freq: Status: Active Protocol: Document 03/04/24 10:40 [facility] (Rec: 03/04/24 13:48 [facility] [id number]) Manual Assessments Soft Tissue Assessment Soft Tissue Mobility Assessment tenderness and tightness throguhout neck and cranium Joint Mobility Assessment Joint Mobility Assessment ant shearing TMJ-occ clicking R>L; ant shearing L>R w/jaw opening; post shear R>L w/ closing PT-OP-J Posture/Palpation/Skin Start: 01/29/24 11:36 Freq: Status: Active Protocol: Document 03/04/24 10:40 [facility] (Rec: 03/04/24 13:48 [facility] [id number]) Posture Evaluation Roldan Postural Classification System Roldan Postural Classifications Posterior/Anterior Comments Posture Comments head R SB; R scap >L abd, L shoulder higher, fwd head, inc thoracic kyphosis PT-OP-K Range of Motion Start: 01/29/24 11:36 Freq: Status: Active Protocol: Document 11/10/24 10:49 [facility] (Rec: 11/10/24 13:04 [facility] [id number]) TMJ Range of Motion Jaw Openning Jaw Openning (mm) 32 Comments Comments mild deviation L PT-OP-L Special Tests Start: 01/29/24 11:36 Freq: Status: Active Protocol: Document 03/04/24 10:40 [facility] (Rec: 03/04/24 13:48 [facility] [id number]) Special Tests Cervical Spine Special Tests cranial n screen Test Results neg except some saccades noted w/smooth pursuit atlas/axis shear Test Results neg tectoral membrane Test Results neg arterial screening Test Results position screen neg Comments BP:168/68; ausciltation of carotid and heart WNL Alar Ligament Test Results neg spurling Test Results neg-just pressure Traction Test Results relief-dec pressure PT-OP-M Strength Start: 01/29/24 11:36 Freq: Status: Active Protocol: Document 05/18/24 13:51 [facility] (Rec: 05/18/24 16:44 [facility] [id number]) Ankle/Foot Strength Ankle and Foot Manual Muscle Testing Left Dorsiflexion (L4) 4+ Good+ Plantarflexion (S1) 2+ Poor+ Inversion 4+ Good+ Eversion (S1) 5 Normal Comments unable to do heel raises Toe Strength Toe Manual Muscle Testing Left Flexion 4 Good Extension 5 Normal Comments all toes PT-OP-Q Treatments Start: 01/29/24 11:36 Freq: Status: Active Protocol: Document 11/10/24 10:49 [facility] (Rec: 11/10/24 13:04 [facility] [id number]) Therapeutic Exercises Sidelying Exercises open book Sidelying Exercise Name w/elbow at side Side bilateral Reps/Minutes 3 sec x5 ea Sitting Exercises rotation Side bilateral Reps/Minutes 5 sec w/breaths x2 Standing Exercises stretch Standing Exercise Name 1. elbows straight doorway 2. 90/90 pec Side bilateral Reps/Minutes 30 sec wall posture Standing Exercise Name knees bent focus on lumbar and tspine on wall,chin tuck Reps/Minutes 2x 30 sec Other Exercises ROM Other Exercise Name jaw Manual Therapy Treatment Consent Patient gave verbal consent for manual Yes treatment Soft Tissue Mobilization UE Comments L pec, biceps w/med n glide jaw Body Location R masseter, temporalis, digastric Mobilization Type Myofascial Release Comments w/opening head Body Location R>L cranium fascia Mobilization Type Myofascial Release Intensity/Depth Superficial Joint Mobilizations cranial Comments zygomatic inf glide R, AP temporal and inf, PT-OP-R Modalities Start: 01/29/24 11:36 Freq: Status: Active Protocol: Document 07/14/24 09:45 [facility] (Rec: 07/14/24 10:36 SP [id number]) Hot Pack/Cold Pack Treatment Cold Pack Location Jaw, R>L Patient Position Hooklying Patient Tolerance Good Comments less R jaw irritation PT-OP-T Assessment and Plan Start: 01/29/24 11:36 Freq: Status: Active Protocol: Document 11/10/24 10:49 [facility] (Rec: 11/10/24 13:04 [facility] [id number]) Physical Therapy Assessment Goals ankle ROM Impairment DC goals -pt doing PT at another clinic for this Short Term Goal (STG) Pt will improve DF to neutral in knee ext position to dec strain on heel B 07/21-improved L>R STG Duration achieved 09/08 Document Control Specialist Goal (LTG) Pt will have DF to at least 5 deg in knee ext B and at least 8 deg in knee flex position B to allow for normal gait mehcanics 07/21-L>R improved 09/08-slowly improving LTG Duration 11/18/24 foot Impairment DC d/t seeing another clinic Document Control Specialist Goal (LTG) Pt will report no pain greater than 2/10 when first getting up in AM and after sitting extended in heel 07/21-6-04/28 but not as much as it used to be 09/08-depends on the day 4.5-7 ; overall feels better more often 10/19-10 average; max 5.5/10 LTG Duration 11/18/24 pain Shelter Goal (LTG) Pt will report a 75% decrease in feeling of head, neck and jaw tension in order to participate in daily life w/ less difficulty 05/18-has had a lot of stress, feels like neck has improved. unsure about jaw 07/21-unsure d/t so much stress 09/08-inc recently w/inc stress for cervical tension, jaw tension still present 10/19-tension in jaw, neck and ear area on R 11/10-a lot of stress recently d/t job changes ; feels like jt feels better, but face feels tight LTG Duration 12/18 ROM Short Term Goal (STG) pt will have at least 35 mm of opening of jaw w/o inc jaw tension 03/24/24: jaw 34cm arrival, not pain but feel clunk on R. 05/18-mild tightness 34 mm 07/14/24: 33 mm, no pain but mild tightness 07/21-28mm w/tightness 09/08-34 mm improved-less tightness feeling 10/19-no clicking/clunking, 33 mm and feels okay at end range 11/10-32mm and mild deviation only STG Duration 12/18 Document Control Specialist Goal (LTG) Pt will have full cervical ROM w/o inc pain or feeling off 05/18 improved significnat 09/08-improved comfort w/flex and ext and improved equal SB but does feel res 10/19-achieved LTG Duration achieved 10/19 ear Document Control Specialist Goal (LTG) Pt will report dec ear tension and symptoms w/o inc discomfort when driving and changing elevations. 05/18 improved overall but still limited 07/21-worse recently 09/08-improved a little; L ear feels like it would be okay if R stopped; R ear improved about 20% 10/19-30% improvement; L feels overall good. 11/10-60% improvement; hasn't had elevation changes LTG Duration 12/18 Assessment Summary Assessment Cues required throughout all exercsies today. Adjusted goals and DC heel goals d/t pt seeing PT at another clinic for that now and focus will be on TMJ, neck pain and ear pressure. Pt is noting improvement in clearanec of ears recently and cont cranial and jaw work would be beneficial for pt. Physical Therapy Plan Frequency and Duration Frequency of Treatment 1-2x/wk Duration of treatment (weeks) 6 Plan of Care Start Date 11/10/24 Plan of Care End Date 12/22/24 Therapeutic Interventions Therapeutic Interventions Canalithic Repositioning,Home Exercise Program,Joint Mobilizations,Manual Therapy, Neuromuscular Re-education, Patient/Caregiver Education, Self-Care/Home Management,Soft Tissue Mobilization,Taping, Therapeutic Activities, Therapeutic Exercises, Vestibular Rehabilitation Modalities Cold Pack/Ice Massage,Electric Stimulation,Hot Packs, Infrared Therapy,Traction- Mechanical,Ultrasound Next Visit Focus/Plan Next Note Type Treatment Note Next Visit Plan cont to work on cranial mobility, jaw mm and upper cerivcal mobility to dec ear symptoms; review chest opening and posture
--- NOTE | 2024-11-17 13:47 | PT.OTN ---
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 (Rec: 03/04/24 13:48 [facility] [id number]) Current Condition History of Current Condition Onset Date about 1.5 years pt thinks Current Complaints Jaw tension, neck pain, ear unable to clear History of Current Condition Pt has pressure where she can' t clear her ears. L has gotten better and R still can't clear. Eardrum looks normal, hearing normal, no fluid. ENT mentioned poking hole in eardrum . Going up/down hills/ elevation can't get R ear to clear and pressure just builds up. She does have B jaw tension. She has been told she may be a candidate for double jaw surgery. She went and saw a specialized doctor in [place]. She got a mouthguard for at night and has had it for 2 weeks and is not sure what she thinks of it. when she wears it,s he has to keep moving her jaw and has bite plates to reset her bite after . 1x/week she wears her old nightguard. She is waiting to do another sleep study. She is in a lot of stress currently and in December, she had a weird thing happen weshawn carrera felt like she wasn't really there. It was kind of how she felt after her covid vaccine. She started feeling worse and layed down where dizzy and nauseated. It got bad enough that she talked to her friend who was a nurse and 911 was called. Vitals were checked by EMT and told she was having a panic attack. She saw her primary the next day. Sometimes it feels like she is carrying so much overwhelm that it becomes beyond what her body can handle. She is seeing counselor. Has had head pressure when bends over also . She has had imaging of brain and nothing showed. Her head aches, but she doesn't have DANIEL often. She does have neck pain and sometimes when she wakes up, she can hardly move it. She is seeing a chiro which helps her neck but hasn' t changed the head pressure or the ear clearing. EKG has been done by EMT and looked normal. Pt reports L ankle occ feels difficulty w/down stairs and just feels tight down L leg. 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 Treatment Goals Patient/Caregiver Goals improve ear ability to clear, jaw tension PT-OP-C Subjective Start: 01/29/24 11:36 Freq: Status: Active Protocol: Document 11/17/24 13:10 MB (Rec: 11/17/24 13:47 MB [id number]) OP-PT Subjective Patient Comments Patient Comments Pt is under a large amount of stress in her life. She is having a lot of ear pressure and it is aggravating and she cannot get her ears to clear. It is getting better. She takes a flight in December and she is worried about that. She feels it is pressure from the jaw. She thinks she clenches a lot from stress. PT-OP-F Manual Assessment Start: 01/29/24 11:36 Freq: Status: Active Protocol: Document 03/04/24 10:40 [facility] (Rec: 03/04/24 13:48 [facility] [id number]) Manual Assessments Soft Tissue Assessment Soft Tissue Mobility Assessment tenderness and tightness throguhout neck and cranium Joint Mobility Assessment Joint Mobility Assessment ant shearing TMJ-occ clicking R>L; ant shearing L>R w/jaw opening; post shear R>L w/ closing PT-OP-J Posture/Palpation/Skin Start: 01/29/24 11:36 Freq: Status: Active Protocol: Document 03/04/24 10:40 [facility] (Rec: 03/04/24 13:48 [facility] [id number]) Posture Evaluation Roldan Postural Classification System Roldan Postural Classifications Posterior/Anterior Comments Posture Comments head R SB; R scap >L abd, L shoulder higher, fwd head, inc thoracic kyphosis PT-OP-K Range of Motion Start: 01/29/24 11:36 Freq: Status: Active Protocol: Document 11/10/24 10:49 [facility] (Rec: 11/10/24 13:04 [facility] [id number]) TMJ Range of Motion Jaw Openning Jaw Openning (mm) 32 Comments Comments mild deviation L PT-OP-L Special Tests Start: 01/29/24 11:36 Freq: Status: Active Protocol: Document 03/04/24 10:40 [facility] (Rec: 03/04/24 13:48 [facility] [id number]) Special Tests Cervical Spine Special Tests cranial n screen Test Results neg except some saccades noted w/smooth pursuit atlas/axis shear Test Results neg tectoral membrane Test Results neg arterial screening Test Results position screen neg Comments BP:168/68; ausciltation of carotid and heart WNL Alar Ligament Test Results neg spurling Test Results neg-just pressure Traction Test Results relief-dec pressure PT-OP-M Strength Start: 01/29/24 11:36 Freq: Status: Active Protocol: Document 05/18/24 13:51 [facility] (Rec: 05/18/24 16:44 [facility] [id number]) Ankle/Foot Strength Ankle and Foot Manual Muscle Testing Left Dorsiflexion (L4) 4+ Good+ Plantarflexion (S1) 2+ Poor+ Inversion 4+ Good+ Eversion (S1) 5 Normal Comments unable to do heel raises Toe Strength Toe Manual Muscle Testing Left Flexion 4 Good Extension 5 Normal Comments all toes PT-OP-Q Treatments Start: 01/29/24 11:36 Freq: Status: Active Protocol: Document 11/17/24 13:10 MB (Rec: 11/17/24 13:47 MB [id number]) Manual Therapy Treatment Consent Patient gave verbal consent for manual Yes treatment Other Other Manual Treatments Pt supine with head and legs supported: grade II-III cervical mobs PA and upglides, most work on left side and C1 -2. Pt with tightness down the chain and this affects left cervical spine and so left PFs checks and plantar fascia and treated to improve cervical posture, STM B SCMs, suboccipital release, positional release face PT-OP-R Modalities Start: 01/29/24 11:36 Freq: Status: Active Protocol: Document 07/14/24 09:45 SP (Rec: 07/14/24 10:36 SP [id number]) Hot Pack/Cold Pack Treatment Cold Pack Location Jaw, R>L Patient Position Hooklying Patient Tolerance Good Comments less R jaw irritation PT-OP-T Assessment and Plan Start: 01/29/24 11:36 Freq: Status: Active Protocol: Document 11/17/24 13:10 MB (Rec: 11/17/24 13:47 MB [id number]) Physical Therapy Assessment Goals pain Road Tester Goal (LTG) Pt will report a 75% decrease in feeling of head, neck and jaw tension in order to participate in daily life w/ less difficulty 05/18-has had a lot of stress, feels like neck has improved. unsure about jaw 07/21-unsure d/t so much stress 09/08-inc recently w/inc stress for cervical tension, jaw tension still present 10/19-tension in jaw, neck and ear area on R 11/10-a lot of stress recently d/t job changes ; feels like jt feels better, but face feels tight LTG Duration 12/18 ROM Short Term Goal (STG) pt will have at least 35 mm of opening of jaw w/o inc jaw tension 03/24/24: jaw 34cm arrival, not pain but feel clunk on R. 05/18-mild tightness 34 mm 07/14/24: 33 mm, no pain but mild tightness 07/21-28mm w/tightness 09/08-34 mm improved-less tightness feeling 10/19-no clicking/clunking, 33 mm and feels okay at end range 11/10-32mm and mild deviation only STG Duration 12/18 [address] Tester Goal (LTG) Pt will have full cervical ROM w/o inc pain or feeling off 05/18 improved significnat 09/08-improved comfort w/flex and ext and improved equal SB but does feel res 10/19-achieved LTG Duration achieved 10/19 ear Halfway Goal (LTG) Pt will report dec ear tension and symptoms w/o inc discomfort when driving and changing elevations. 05/18 improved overall but still limited 07/21-worse recently 09/08-improved a little; L ear feels like it would be okay if R stopped; R ear improved about 20% 10/19-30% improvement; L feels overall good. 11/10-60% improvement; hasn't had elevation changes LTG Duration 12/18 Assessment Summary Assessment Pt may benefit from Buteyko breathing training with this PT. Monitor response to manual work. Physical Therapy Plan Frequency and Duration Frequency of Treatment 1-2x/wk Duration of treatment (weeks) 6 Plan of Care Start Date 11/10/24 Plan of Care End Date 12/22/24 Therapeutic Interventions Therapeutic Interventions Canalithic Repositioning,Home Exercise Program,Joint Mobilizations,Manual Therapy, Neuromuscular Re-education, Patient/Caregiver Education, Self-Care/Home Management,Soft Tissue Mobilization,Taping, Therapeutic Activities, Therapeutic Exercises, Vestibular Rehabilitation Modalities Cold Pack/Ice Massage,Electric Stimulation,Hot Packs, Infrared Therapy,Traction- Mechanical,Ultrasound Next Visit Focus/Plan Next Note Type Treatment Note Next Visit Plan Consider Buteyko breathing, progressive muscle relaxation, diaphragm breathing, check B first rib mobilitycont to work on cranial mobility, jaw mm and upper cerivcal mobility to dec ear symptoms; review chest opening and posture
--- NOTE | 2024-11-19 15:14 | PT.OTN ---
Current Diagnoses Unspecified Eustachian tube disorder, bilateral (11/19/24) Arthropathy of bilateral temporomandibular joint (11/19/24) Plantar fascial fibromatosis (11/19/24) Fibromyalgia (11/19/24) Physical Therapy Treatment Note PT-OP-A Visit Information Start: 01/29/24 11:36 Freq: Status: Active Protocol: Document 11/19/24 14:34 SP (Rec: 11/19/24 15:43 SP [id number]) Out-Patient Physical Therapy Visit Information Visit Information Visit Type Treatment Note Visit Start Time 14:34 Visit Stop Time 15:14 Visit Number 27 Number of NURSING COORDINATOR Visits 1 PT-OP-B Current Condition Start: 01/29/24 11:36 Freq: Status: Active Protocol: Document 03/04/24 10:40 [facility] (Rec: 03/04/24 13:48 [facility] [id number]) Current Condition History of Current Condition Onset Date about 1.5 years pt thinks Current Complaints Jaw tension, neck pain, ear unable to clear History of Current Condition Pt has pressure where she can' t clear her ears. L has gotten better and R still can't clear. Eardrum looks normal, hearing normal, no fluid. ENT mentioned poking hole in eardrum . Going up/down hills/ elevation can't get R ear to clear and pressure just builds up. She does have B jaw tension. She has been told she may be a candidate for double jaw surgery. She went and saw a specialized doctor in [place]. She got a mouthguard for at night and has had it for 2 weeks and is not sure what she thinks of it. when she wears it,s he has to keep moving her jaw and has bite plates to reset her bite after . 1x/week she wears her old nightguard. She is waiting to do another sleep study. She is in a lot of stress currently and in December, she had a weird thing happen renetta carrera felt like she wasn't really there. It was kind of how she felt after her covid vaccine. She started feeling worse and layed down where dizzy and nauseated. It got bad enough that she talked to her friend who was a nurse and 911 was called. Vitals were checked by EMT and told she was having a panic attack. She saw her primary the next day. Sometimes it feels like she is carrying so much overwhelm that it becomes beyond what her body can handle. She is seeing counselor. Has had head pressure when bends over also . She has had imaging of brain and nothing showed. Her head aches, but she doesn't have DANIEL often. She does have neck pain and sometimes when she wakes up, she can hardly move it. She is seeing a chiro which helps her neck but hasn' t changed the head pressure or the ear clearing. EKG has been done by EMT and looked normal. Pt reports L ankle occ feels difficulty w/down stairs and just feels tight down L leg. 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 Treatment Goals Patient/Caregiver Goals improve ear ability to clear, jaw tension PT-OP-C Subjective Start: 01/29/24 11:36 Freq: Status: Active Protocol: Document 11/19/24 14:34 SP (Rec: 11/19/24 15:43 SP [id number]) OP-PT Subjective Patient Comments Patient Comments Pt reported her L foot hurt after last tx but found felt alot better the next day and was really helpful. She stated the deeper TMJ work with PT last was intense but thinks also helpful. Willing to continue working with another PT and eventually manual TrP. She states think TMJ still tight but more midline. She states her L arm bicep and forearm very tight today if can spend time there too besides neck and TMJ. PT-OP-F Manual Assessment Start: 01/29/24 11:36 Freq: Status: Active Protocol: Document 03/04/24 10:40 [facility] (Rec: 03/04/24 13:48 [facility] [id number]) Manual Assessments Soft Tissue Assessment Soft Tissue Mobility Assessment tenderness and tightness throguhout neck and cranium Joint Mobility Assessment Joint Mobility Assessment ant shearing TMJ-occ clicking R>L; ant shearing L>R w/jaw opening; post shear R>L w/ closing PT-OP-J Posture/Palpation/Skin Start: 01/29/24 11:36 Freq: Status: Active Protocol: Document 03/04/24 10:40 [facility] (Rec: 03/04/24 13:48 [facility] [id number]) Posture Evaluation Roldan Postural Classification System Roldan Postural Classifications Posterior/Anterior Comments Posture Comments head R SB; R scap >L abd, L shoulder higher, fwd head, inc thoracic kyphosis PT-OP-K Range of Motion Start: 01/29/24 11:36 Freq: Status: Active Protocol: Document 11/10/24 10:49 [facility] (Rec: 11/10/24 13:04 [facility] [id number]) TMJ Range of Motion Jaw Openning Jaw Openning (mm) 32 Comments Comments mild deviation L PT-OP-L Special Tests Start: 01/29/24 11:36 Freq: Status: Active Protocol: Document 03/04/24 10:40 [facility] (Rec: 03/04/24 13:48 [facility] [id number]) Special Tests Cervical Spine Special Tests cranial n screen Test Results neg except some saccades noted w/smooth pursuit atlas/axis shear Test Results neg tectoral membrane Test Results neg arterial screening Test Results position screen neg Comments BP:168/68; ausciltation of carotid and heart WNL Alar Ligament Test Results neg spurling Test Results neg-just pressure Traction Test Results relief-dec pressure PT-OP-M Strength Start: 01/29/24 11:36 Freq: Status: Active Protocol: Document 05/18/24 13:51 [facility] (Rec: 05/18/24 16:44 [facility] [id number]) Ankle/Foot Strength Ankle and Foot Manual Muscle Testing Left Dorsiflexion (L4) 4+ Good+ Plantarflexion (S1) 2+ Poor+ Inversion 4+ Good+ Eversion (S1) 5 Normal Comments unable to do heel raises Toe Strength Toe Manual Muscle Testing Left Flexion 4 Good Extension 5 Normal Comments all toes PT-OP-Q Treatments Start: 01/29/24 11:36 Freq: Status: Active Protocol: Document 11/19/24 14:34 SP (Rec: 11/19/24 15:43 SP [id number]) Manual Therapy Treatment Consent Patient gave verbal consent for manual Yes treatment Soft Tissue Mobilization UE Comments L pec, brachioradialis, biceps w/med n glide and sustained pressure/MWM elbow flex/ext and forearm ext wrist flex/ext jaw Body Location R>L temporalis, digastric, intraoral: masseter, med pterygoid Mobilization Type Myofascial Release Comments sensitive to deep pressure but gives feedback has been helpful after, Sustained pressure w/opening Joint Mobilizations cranial Comments R zygomatic inf glide, Beau temporal lateral (ear pull), Beau perietal superior, light sinue lateral glide inferior zygomatic arch TMJ Comments Mandible caudal glide with breath PT-OP-R Modalities Start: 01/29/24 11:36 Freq: Status: Active Protocol: Document 07/14/24 09:45 SP (Rec: 07/14/24 10:36 SP [id number]) Hot Pack/Cold Pack Treatment Cold Pack Location Jaw, R>L Patient Position Hooklying Patient Tolerance Good Comments less R jaw irritation PT-OP-T Assessment and Plan Start: 01/29/24 11:36 Freq: Status: Active Protocol: Document 11/19/24 14:34 SP (Rec: 11/19/24 15:43 SP [id number]) Physical Therapy Assessment Goals pain Care Home Goal (LTG) Pt will report a 75% decrease in feeling of head, neck and jaw tension in order to participate in daily life w/ less difficulty 05/18-has had a lot of stress, feels like neck has improved. unsure about jaw 07/21-unsure d/t so much stress 09/08-inc recently w/inc stress for cervical tension, jaw tension still present 10/19-tension in jaw, neck and ear area on R 11/10-a lot of stress recently d/t job changes ; feels like jt feels better, but face feels tight LTG Duration 12/18 ROM Short Term Goal (STG) pt will have at least 35 mm of opening of jaw w/o inc jaw tension 03/24/24: jaw 34cm arrival, not pain but feel clunk on R. 05/18-mild tightness 34 mm 07/14/24: 33 mm, no pain but mild tightness 07/21-28mm w/tightness 09/08-34 mm improved-less tightness feeling 10/19-no clicking/clunking, 33 mm and feels okay at end range 11/10-32mm and mild deviation only STG Duration 12/18 Care Home Goal (LTG) Pt will have full cervical ROM w/o inc pain or feeling off 05/18 improved significnat 09/08-improved comfort w/flex and ext and improved equal SB but does feel res 10/19-achieved LTG Duration achieved 10/19 ear Care Home Goal (LTG) Pt will report dec ear tension and symptoms w/o inc discomfort when driving and changing elevations. 05/18 improved overall but still limited 07/21-worse recently 09/08-improved a little; L ear feels like it would be okay if R stopped; R ear improved about 20% 10/19-30% improvement; L feels overall good. 11/10-60% improvement; hasn't had elevation changes LTG Duration 12/18 Assessment Summary Assessment Pt reports little less fullness L ear side during firm ear pull. TMJ sore but found after last tx was helpful lessening tension later in day and next day. Instruction on slow breath with manual. Physical Therapy Plan Frequency and Duration Frequency of Treatment 1-2x/wk Duration of treatment (weeks) 6 Plan of Care Start Date 11/10/24 Plan of Care End Date 12/22/24 Therapeutic Interventions Therapeutic Interventions Canalithic Repositioning,Home Exercise Program,Joint Mobilizations,Manual Therapy, Neuromuscular Re-education, Patient/Caregiver Education, Self-Care/Home Management,Soft Tissue Mobilization,Taping, Therapeutic Activities, Therapeutic Exercises, Vestibular Rehabilitation Modalities Cold Pack/Ice Massage,Electric Stimulation,Hot Packs, Infrared Therapy,Traction- Mechanical,Ultrasound Next Visit Focus/Plan Next Note Type Treatment Note Next Visit Plan Consider Buteyko breathing, progressive muscle relaxation, diaphragm breathing, check B first rib mobility cont to work on cranial mobility, jaw mm and upper cerivcal mobility to dec ear symptoms; next: review chest opening and posture
--- NOTE | 2024-11-23 17:43 | PT.OTN ---
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) Plantar fascial fibromatosis (11/23/24) Fibromyalgia (11/23/24) Physical Therapy Treatment Note PT-OP-A Visit Information Start: 01/29/24 11:36 Freq: Status: Active Protocol: Document 11/23/24 17:29 [facility] (Rec: 11/23/24 17:43 [facility] [id number]) Out-Patient Physical Therapy Visit Information Visit Information Visit Type Treatment Note Visit Start Time 14:35 Visit Stop Time 15:15 Visit Number 28 Number of WASHATERIA ATTENDANT Visits 0 PT-OP-B Current Condition Start: 01/29/24 11:36 Freq: Status: Active Protocol: Document 03/04/24 10:40 [facility] (Rec: 03/04/24 13:48 [facility] [id number]) Current Condition History of Current Condition Onset Date about 1.5 years pt thinks Current Complaints Jaw tension, neck pain, ear unable to clear History of Current Condition Pt has pressure where she can' t clear her ears. L has gotten better and R still can't clear. Eardrum looks normal, hearing normal, no fluid. ENT mentioned poking hole in eardrum . Going up/down hills/ elevation can't get R ear to clear and pressure just builds up. She does have B jaw tension. She has been told she may be a candidate for double jaw surgery. She went and saw a specialized doctor in [place]. She got a mouthguard for at night and has had it for 2 weeks and is not sure what she thinks of it. when she wears it,s he has to keep moving her jaw and has bite plates to reset her bite after . 1x/week she wears her old nightguard. She is waiting to do another sleep study. She is in a lot of stress currently and in December, she had a weird thing happen renetta carrera felt like she wasn't really there. It was kind of how she felt after her covid vaccine. She started feeling worse and layed down where dizzy and nauseated. It got bad enough that she talked to her friend who was a nurse and 911 was called. Vitals were checked by EMT and told she was having a panic attack. She saw her primary the next day. Sometimes it feels like she is carrying so much overwhelm that it becomes beyond what her body can handle. She is seeing counselor. Has had head pressure when bends over also . She has had imaging of brain and nothing showed. Her head aches, but she doesn't have DANIEL often. She does have neck pain and sometimes when she wakes up, she can hardly move it. She is seeing a chiro which helps her neck but hasn' t changed the head pressure or the ear clearing. EKG has been done by EMT and looked normal. Pt reports L ankle occ feels difficulty w/down stairs and just feels tight down L leg. 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 Treatment Goals Patient/Caregiver Goals improve ear ability to clear, jaw tension PT-OP-C Subjective Start: 01/29/24 11:36 Freq: Status: Active Protocol: Document 11/23/24 17:29 [facility] (Rec: 11/23/24 17:43 [facility] [id number]) OP-PT Subjective Patient Comments Patient Comments Pt reports sore intraoral for a while after last session. Thinks she should have said soemthing about pressure but didn't. Noted some discoloration after and it is still a little sore. using oral gel she has from dentist to help PT-OP-F Manual Assessment Start: 01/29/24 11:36 Freq: Status: Active Protocol: Document 03/04/24 10:40 [facility] (Rec: 03/04/24 13:48 [facility] [id number]) Manual Assessments Soft Tissue Assessment Soft Tissue Mobility Assessment tenderness and tightness throguhout neck and cranium Joint Mobility Assessment Joint Mobility Assessment ant shearing TMJ-occ clicking R>L; ant shearing L>R w/jaw opening; post shear R>L w/ closing PT-OP-J Posture/Palpation/Skin Start: 01/29/24 11:36 Freq: Status: Active Protocol: Document 03/04/24 10:40 [facility] (Rec: 03/04/24 13:48 [facility] [id number]) Posture Evaluation Roldan Postural Classification System Roldan Postural Classifications Posterior/Anterior Comments Posture Comments head R SB; R scap >L abd, L shoulder higher, fwd head, inc thoracic kyphosis PT-OP-K Range of Motion Start: 01/29/24 11:36 Freq: Status: Active Protocol: Document 11/10/24 10:49 [facility] (Rec: 11/10/24 13:04 [facility] [id number]) TMJ Range of Motion Jaw Openning Jaw Openning (mm) 32 Comments Comments mild deviation L PT-OP-L Special Tests Start: 01/29/24 11:36 Freq: Status: Active Protocol: Document 03/04/24 10:40 [facility] (Rec: 03/04/24 13:[id number] Special Tests Cervical Spine Special Tests cranial n screen Test Results neg except some saccades noted w/smooth pursuit atlas/axis shear Test Results neg tectoral membrane Test Results neg arterial screening Test Results position screen neg Comments BP:168/68; ausciltation of carotid and heart WNL Alar Ligament Test Results neg spurling Test Results neg-just pressure Traction Test Results relief-dec pressure PT-OP-M Strength Start: 01/29/24 11:36 Freq: Status: Active Protocol: Document 05/18/24 13:51 [facility] (Rec: 05/18/24 16:44 [facility] [id number]) Ankle/Foot Strength Ankle and Foot Manual Muscle Testing Left Dorsiflexion (L4) 4+ Good+ Plantarflexion (S1) 2+ Poor+ Inversion 4+ Good+ Eversion (S1) 5 Normal Comments unable to do heel raises Toe Strength Toe Manual Muscle Testing Left Flexion 4 Good Extension 5 Normal Comments all toes PT-OP-Q Treatments Start: 01/29/24 11:36 Freq: Status: Active Protocol: Document 11/23/24 17:29 [facility] (Rec: 11/23/24 17:43 [facility] [id number]) Manual Therapy Treatment Consent Patient gave verbal consent for manual Yes treatment Soft Tissue Mobilization neck Body Location R SCM, scalenes Mobilization Type Rolling,Sustained Pressure Body Position Supine Comments w/gentle cervical rot jaw Body Location R temporalis, masseter Mobilization Type Myofascial Release,Rolling Comments gentle opening head Body Location R>L cranium fascia Mobilization Type Myofascial Release Intensity/Depth Superficial Comments w/jaw opening Joint Mobilizations cranial Comments R zygomatic inf glide, R inf temporal and post rot, nasal inf and L w/jaw opening and swallowing cervical Comments C1 transverse L and UAP L PT-OP-R Modalities Start: 01/29/24 11:36 Freq: Status: Active Protocol: Document 07/14/24 09:45 [facility] (Rec: 07/14/24 10:36 SP [id number]) Hot Pack/Cold Pack Treatment Cold Pack Location Jaw, R>L Patient Position Hooklying Patient Tolerance Good Comments less R jaw irritation PT-OP-T Assessment and Plan Start: 01/29/24 11:36 Freq: Status: Active Protocol: Document 11/23/24 17:29 [facility] (Rec: 11/23/24 17:43 [facility] [id number]) Physical Therapy Assessment Goals pain Prison Goal (LTG) Pt will report a 75% decrease in feeling of head, neck and jaw tension in order to participate in daily life w/ less difficulty 05/18-has had a lot of stress, feels like neck has improved. unsure about jaw 07/21-unsure d/t so much stress 09/08-inc recently w/inc stress for cervical tension, jaw tension still present 10/19-tension in jaw, neck and ear area on R 11/10-a lot of stress recently d/t job changes ; feels like jt feels better, but face feels tight LTG Duration 12/18 ROM Short Term Goal (STG) pt will have at least 35 mm of opening of jaw w/o inc jaw tension 03/24/24: jaw 34cm arrival, not pain but feel clunk on R. 05/18-mild tightness 34 mm 07/14/24: 33 mm, no pain but mild tightness 07/21-28mm w/tightness 09/08-34 mm improved-less tightness feeling 10/19-no clicking/clunking, 33 mm and feels okay at end range 11/10-32mm and mild deviation only STG Duration 12/18 Care Provider Goal (LTG) Pt will have full cervical ROM w/o inc pain or feeling off 05/18 improved significnat 09/08-improved comfort w/flex and ext and improved equal SB but does feel res 10/19-achieved LTG Duration achieved 10/19 ear Care Provider Goal (LTG) Pt will report dec ear tension and symptoms w/o inc discomfort when driving and changing elevations. 05/18 improved overall but still limited 10/2-worse recently 09/08-improved a little; L ear feels like it would be okay if R stopped; R ear improved about 20% 10/19-30% improvement; L feels overall good. 11/10-60% improvement; hasn't had elevation changes LTG Duration 12/18 Assessment Summary Assessment Encouraged pt cont to cont postural exercises at home. She noted relief in sinus pressure after cranial work. Physical Therapy Plan Frequency and Duration Frequency of Treatment 1-2x/wk Duration of treatment (weeks) 6 Plan of Care Start Date 11/10/24 Plan of Care End Date 12/22/24 Next Visit Focus/Plan Next Note Type Treatment Note Next Visit Plan Consider Buteyko breathing, progressive muscle relaxation, diaphragm breathing, cont to work on cranial mobility, jaw mm and upper cerivcal mobility to dec ear symptoms; next: review chest opening and posture
--- NOTE | 2024-11-26 10:29 | PT.OTN ---
Current Diagnoses Unspecified Eustachian tube disorder, bilateral (11/26/24) Arthropathy of bilateral temporomandibular joint (11/26/24) Plantar fascial fibromatosis (11/26/24) Fibromyalgia (11/26/24) Physical Therapy Treatment Note PT-OP-A Visit Information Start: 01/29/24 11:36 Freq: Status: Active Protocol: Document 11/26/24 09:51 [facility] (Rec: 11/26/24 10:44 [facility] [id number]) Out-Patient Physical Therapy Visit Information Visit Information Visit Type Treatment Note Visit Note * 11/26/24 new insurance. Visit Start Time 09:51 Visit Stop Time 10:29 Visit Number 29 Number of QUALITY ASSURANCE INTERN Visits 1 PT-OP-B Current Condition Start: 01/29/24 11:36 Freq: Status: Active Protocol: Document 03/04/24 10:40 [facility] (Rec: 03/04/24 13:48 [facility] [id number]) Current Condition History of Current Condition Onset Date about 1.5 years pt thinks Current Complaints Jaw tension, neck pain, ear unable to clear History of Current Condition Pt has pressure where she can' t clear her ears. L has gotten better and R still can't clear. Eardrum looks normal, hearing normal, no fluid. ENT mentioned poking hole in eardrum . Going up/down hills/ elevation can't get R ear to clear and pressure just builds up. She does have B jaw tension. She has been told she may be a candidate for double jaw surgery. She went and saw a specialized doctor in [place]. She got a mouthguard for at night and has had it for 2 weeks and is not sure what she thinks of it. when she wears it,s he has to keep moving her jaw and has bite plates to reset her bite after . 1x/week she wears her old nightguard. She is waiting to do another sleep study. She is in a lot of stress currently and in December, she had a weird thing happen wee deandre felt like she wasn't really there. It was kind of how she felt after her covid vaccine. She started feeling worse and layed down where dizzy and nauseated. It got bad enough that she talked to her friend who was a nurse and 911 was called. Vitals were checked by EMT and told she was having a panic attack. She saw her primary the next day. Sometimes it feels like she is carrying so much overwhelm that it becomes beyond what her body can handle. She is seeing counselor. Has had head pressure when bends over also . She has had imaging of brain and nothing showed. Her head aches, but she doesn't have DANIEL often. She does have neck pain and sometimes when she wakes up, she can hardly move it. She is seeing a chiro which helps her neck but hasn' t changed the head pressure or the ear clearing. EKG has been done by EMT and looked normal. Pt reports L ankle occ feels difficulty w/down stairs and just feels tight down L leg. 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 Treatment Goals Patient/Caregiver Goals improve ear ability to clear, jaw tension PT-OP-C Subjective Start: 01/29/24 11:36 Freq: Status: Active Protocol: Document 11/26/24 09:51 [facility] (Rec: 11/26/24 10:44 [facility] [id number]) OP-PT Subjective Patient Comments Patient Comments Pt reports new insurance today . 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 She stated after last Fri, felt raw inside mouth. Wants to keep to external mouth work , neck tight today. PT-OP-F Manual Assessment Start: 01/29/24 11:36 Freq: Status: Active Protocol: Document 03/04/24 10:40 [facility] (Rec: 03/04/24 13:48 [facility] [id number]) Manual Assessments Soft Tissue Assessment Soft Tissue Mobility Assessment tenderness and tightness throguhout neck and cranium Joint Mobility Assessment Joint Mobility Assessment ant shearing TMJ-occ clicking R>L; ant shearing L>R w/jaw opening; post shear R>L w/ closing PT-OP-J Posture/Palpation/Skin Start: 01/29/24 11:36 Freq: Status: Active Protocol: Document 03/04/24 10:40 [facility] (Rec: 03/04/24 13:48 [facility] [id number]) Posture Evaluation Roldan Postural Classification System Roldan Postural Classifications Posterior/Anterior Comments Posture Comments head R SB; R scap >L abd, L shoulder higher, fwd head, inc thoracic kyphosis PT-OP-K Range of Motion Start: 01/29/24 11:36 Freq: Status: Active Protocol: Document 11/10/24 10:49 [facility] (Rec: 11/10/24 13:04 [facility] [id number]) TMJ Range of Motion Jaw Openning Jaw Openning (mm) 32 Comments Comments mild deviation L PT-OP-L Special Tests Start: 01/29/24 11:36 Freq: Status: Active Protocol: Document 03/04/24 10:40 [facility] (Rec: 03/04/24 13:48 [facility] [id number]) Special Tests Cervical Spine Special Tests cranial n screen Test Results neg except some saccades noted w/smooth pursuit atlas/axis shear Test Results neg tectoral membrane Test Results neg arterial screening Test Results position screen neg Comments BP:168/68; ausciltation of carotid and heart WNL Alar Ligament Test Results neg spurling Test Results neg-just pressure Traction Test Results relief-dec pressure PT-OP-M Strength Start: 01/29/24 11:36 Freq: Status: Active Protocol: Document 05/18/24 13:51 [facility] (Rec: 05/18/24 16:44 [facility] [id number]) Ankle/Foot Strength Ankle and Foot Manual Muscle Testing Left Dorsiflexion (L4) 4+ Good+ Plantarflexion (S1) 2+ Poor+ Inversion 4+ Good+ Eversion (S1) 5 Normal Comments unable to do heel raises Toe Strength Toe Manual Muscle Testing Left Flexion 4 Good Extension 5 Normal Comments all toes PT-OP-Q Treatments Start: 01/29/24 11:36 Freq: Status: Active Protocol: Document 11/26/24 09:51 [facility] (Rec: 11/26/24 10:44 SP [id number]) Manual Therapy Treatment Consent Patient gave verbal consent for manual Yes treatment Soft Tissue Mobilization neck Body Location R SCM, scalenes, R Longissmus & oblique capitus approx C3-4 Mobilization Type Rolling,Sustained Pressure Body Position Supine Comments w/gentle cervical rot and nods manual and ed use theracane/S stick jaw Body Location R>L temporalis, masseter, digastric Mobilization Type Myofascial Release,Rolling Comments strumming/rolling, sustained pressure jaw open/close, decompression caudal directioning, head Body Location R>L cranium fascia, TEACHING SUPERVISOR: parietal/sphenoid/temporal ear pull decompression Mobilization Type Myofascial Release Intensity/Depth Superficial Comments w/jaw opening, fascial sinus lateral sweeping sub zygomatic arch. Manual Traction CS Comments gentle manual traction PT-OP-R Modalities Start: 01/29/24 11:36 Freq: Status: Active Protocol: Document 07/14/24 09:45 [facility] (Rec: 07/14/24 10:36 SP [id number]) Hot Pack/Cold Pack Treatment Cold Pack Location Jaw, R>L Patient Position Hooklying Patient Tolerance Good Comments less R jaw irritation PT-OP-T Assessment and Plan Start: 01/29/24 11:36 Freq: Status: Active Protocol: Document 11/26/24 09:51 [facility] (Rec: 11/26/24 10:44 [facility] [id number]) Physical Therapy Assessment Goals pain Cartridge Gauger Goal (LTG) Pt will report a 75% decrease in feeling of head, neck and jaw tension in order to participate in daily life w/ less difficulty 05/18-has had a lot of stress, feels like neck has improved. unsure about jaw 07/21-unsure d/t so much stress 09/08-inc recently w/inc stress for cervical tension, jaw tension still present 10/19-tension in jaw, neck and ear area on R 11/10-a lot of stress recently d/t job changes ; feels like jt feels better, but face feels tight LTG Duration 12/18 ROM Short Term Goal (STG) pt will have at least 35 mm of opening of jaw w/o inc jaw tension 03/24/24: jaw 34cm arrival, not pain but feel clunk on R. 05/18-mild tightness 34 mm 07/14/24: 33 mm, no pain but mild tightness 07/21-28mm w/tightness 09/08-34 mm improved-less tightness feeling 10/19-no clicking/clunking, 33 mm and feels okay at end range 11/10-32mm and mild deviation only STG Duration 12/18 Cartridge Gauger Goal (LTG) Pt will have full cervical ROM w/o inc pain or feeling off 05/18 improved significnat 09/08-improved comfort w/flex and ext and improved equal SB but does feel res 10/19-achieved LTG Duration achieved 10/19 ear Cartridge Gauger Goal (LTG) Pt will report dec ear tension and symptoms w/o inc discomfort when driving and changing elevations. 05/18 improved overall but still limited 07/21-worse recently 09/08-improved a little; L ear feels like it would be okay if R stopped; R ear improved about 20% 10/19-30% improvement; L feels overall good. 11/10-60% improvement; hasn't had elevation changes LTG Duration 12/18 Assessment Summary Assessment Pt reports increased sensitivity to pressure, external only jaw muscular today. Increased jaw and cervical ROM post manual. Reports not significant decreased sinus pressure. Pt reports hope manual with other PT can help manual Trp to rid ear full pressure feeling that hasn't diminished significantly. Physical Therapy Plan Frequency and Duration Frequency of Treatment 1-2x/wk Duration of treatment (weeks) 6 Plan of Care Start Date 11/10/24 Plan of Care End Date 12/22/24 Therapeutic Interventions Therapeutic Interventions Canalithic Repositioning,Home Exercise Program,Joint Mobilizations,Manual Therapy, Neuromuscular Re-education, Patient/Caregiver Education, Self-Care/Home Management,Soft Tissue Mobilization,Taping, Therapeutic Activities, Therapeutic Exercises, Vestibular Rehabilitation Modalities Cold Pack/Ice Massage,Electric Stimulation,Hot Packs, Infrared Therapy,Traction- Mechanical,Ultrasound Next Visit Focus/Plan Next Note Type Treatment Note Next Visit Plan *Check appts 12/15, check if adding more update POC before 12/22, leaves OOT 01/05. End Consider Buteyko breathing , progressive muscle relaxation, diaphragm breathing, cont to work on cranial mobility, jaw mm and upper cerivcal mobility to dec ear symptoms; next: review chest opening and posture
--- NOTE | 2024-11-30 10:39 | PT.OTN ---
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 fascial fibromatosis (11/30/24) Fibromyalgia (11/30/24) Physical Therapy Treatment Note PT-OP-A Visit Information Start: 01/29/24 11:36 Freq: Status: Active Protocol: Document 11/30/24 09:48 [facility] (Rec: 11/30/24 10:39 [facility] [id number]) Out-Patient Physical Therapy Visit Information Visit Information Visit Type Progress Note Visit Start Time 09:50 Visit Stop Time 10:30 Visit Number 30 Number of MACROECONOMICS PROFESSOR Visits 0 PT-OP-B Current Condition Start: 01/29/24 11:36 Freq: Status: Active Protocol: Document 03/04/24 10:40 [facility] (Rec: 03/04/24 13:48 [facility] [id number]) Current Condition History of Current Condition Onset Date about 1.5 years pt thinks Current Complaints Jaw tension, neck pain, ear unable to clear History of Current Condition Pt has pressure where she can' t clear her ears. L has gotten better and R still can't clear. Eardrum looks normal, hearing normal, no fluid. ENT mentioned poking hole in eardrum . Going up/down hills/ elevation can't get R ear to clear and pressure just builds up. She does have B jaw tension. She has been told she may be a candidate for double jaw surgery. She went and saw a specialized doctor in [place]. She got a mouthguard for at night and has had it for 2 weeks and is not sure what she thinks of it. when she wears it,s he has to keep moving her jaw and has bite plates to reset her bite after . 1x/week she wears her old nightguard. She is waiting to do another sleep study. She is in a lot of stress currently and in December, she had a weird thing happen renetta carrera felt like she wasn't really there. It was kind of how she felt after her covid vaccine. She started feeling worse and layed down where dizzy and nauseated. It got bad enough that she talked to her friend who was a nurse and 911 was called. Vitals were checked by EMT and told she was having a panic attack. She saw her primary the next day. Sometimes it feels like she is carrying so much overwhelm that it becomes beyond what her body can handle. She is seeing counselor. Has had head pressure when bends over also . She has had imaging of brain and nothing showed. Her head aches, but she doesn't have DANIEL often. She does have neck pain and sometimes when she wakes up, she can hardly move it. She is seeing a chiro which helps her neck but hasn' t changed the head pressure or the ear clearing. EKG has been done by EMT and looked normal. Pt reports L ankle occ feels difficulty w/down stairs and just feels tight down L leg. Pt's teeth ewere pulled out as a kid d/t not fitting in her mouth as this was prior to palette eyeglass cutter. Treatment Goals Patient/Caregiver Goals improve ear ability to clear, jaw tension PT-OP-C Subjective Start: 01/29/24 11:36 Freq: Status: Active Protocol: Document 11/30/24 09:48 [facility] (Rec: 11/30/24 10:39 [facility] [id number]) OP-PT Subjective Patient Comments Patient Comments Pt said C1 is really bothering her but points to mid R cervical region. L arm is feeling strained . PT-OP-F Manual Assessment Start: 01/29/24 11:36 Freq: Status: Active Protocol: Document 03/04/24 10:40 [facility] (Rec: 03/04/24 13:48 [facility] [id number]) Manual Assessments Soft Tissue Assessment Soft Tissue Mobility Assessment tenderness and tightness throguhout neck and cranium Joint Mobility Assessment Joint Mobility Assessment ant shearing TMJ-occ clicking R>L; ant shearing L>R w/jaw opening; post shear R>L w/ closing PT-OP-J Posture/Palpation/Skin Start: 01/29/24 11:36 Freq: Status: Active Protocol: Document 03/04/24 10:40 [facility] (Rec: 03/04/24 13:48 [facility] [id number]) Posture Evaluation Roldan Postural Classification System Roldan Postural Classifications Posterior/Anterior Comments Posture Comments head R SB; R scap >L abd, L shoulder higher, fwd head, inc thoracic kyphosis PT-OP-K Range of Motion Start: 01/29/24 11:36 Freq: Status: Active Protocol: Document 11/10/24 10:49 [facility] (Rec: 11/10/24 13:04 [facility] [id number]) TMJ Range of Motion Jaw Openning Jaw Openning (mm) 32 Comments Comments mild deviation L PT-OP-L Special Tests Start: 01/29/24 11:36 Freq: Status: Active Protocol: Document 03/04/24 10:40 [facility] (Rec: 03/04/24 13:48 [facility] [id number]) Special Tests Cervical Spine Special Tests cranial n screen Test Results neg except some saccades noted w/smooth pursuit atlas/axis shear Test Results neg tectoral membrane Test Results neg arterial screening Test Results position screen neg Comments BP:168/68; ausciltation of carotid and heart WNL Alar Ligament Test Results neg spurling Test Results neg-just pressure Traction Test Results relief-dec pressure PT-OP-M Strength Start: 01/29/24 11:36 Freq: Status: Active Protocol: Document 05/18/24 13:51 [facility] (Rec: 05/18/24 16:44 [facility] [id number]) Ankle/Foot Strength Ankle and Foot Manual Muscle Testing Left Dorsiflexion (L4) 4+ Good+ Plantarflexion (S1) 2+ Poor+ Inversion 4+ Good+ Eversion (S1) 5 Normal Comments unable to do heel raises Toe Strength Toe Manual Muscle Testing Left Flexion 4 Good Extension 5 Normal Comments all toes PT-OP-Q Treatments Start: 01/29/24 11:36 Freq: Status: Active Protocol: Document 11/30/24 09:48 [facility] (Rec: 11/30/24 10:39 [facility] [id number]) Therapeutic Exercises Sitting Exercises jaw Sitting Exercise Name opening ROM Standing Exercises n glide Standing Exercise Name median n Side left Reps/Minutes 10 stretch Standing Exercise Name 1. elbows straight doorway 2. 90/90 pec Side bilateral Reps/Minutes 30 sec wall posture Standing Exercise Name knees bent focus on lumbar and tspine on wall,chin tuck Reps/Minutes 2x 30 sec Manual Therapy Treatment Consent Patient gave verbal consent for manual Yes treatment Soft Tissue Mobilization UE Body Location L pec/biceps w/med n glide neck Body Location R SCM, scalenes Mobilization Type Rolling,Sustained Pressure Body Position Supine Comments w/rot jaw Body Location R>L masseter, digastric Mobilization Type Myofascial Release,Rolling Comments w/opening head Body Location R>L cranium fascia, Mobilization Type Myofascial Release Intensity/Depth Superficial Comments w/jaw opening, Joint Mobilizations cranial Comments R inf temporal and post rot, sphenoid R to L w/jaw opening and swallowing TMJ Comments distraction R cervical Comments C1 transverse L and UAP R PT-OP-R Modalities Start: 01/29/24 11:36 Freq: Status: Active Protocol: Document 07/14/24 09:45 [facility] (Rec: 07/14/24 10:36 SP [id number]) Hot Pack/Cold Pack Treatment Cold Pack Location Jaw, R>L Patient Position Hooklying Patient Tolerance Good Comments less R jaw irritation PT-OP-T Assessment and Plan Start: 01/29/24 11:36 Freq: Status: Active Protocol: Document 11/30/24 09:48 [facility] (Rec: 11/30/24 10:39 [facility] [id number]) Physical Therapy Assessment Goals pain Live Out Nanny Goal (LTG) Pt will report a 75% decrease in feeling of head, neck and jaw tension in order to participate in daily life w/ less difficulty 05/18-has had a lot of stress, feels like neck has improved. unsure about jaw 07/21-unsure d/t so much stress 09/08-inc recently w/inc stress for cervical tension, jaw tension still present 10/19-tension in jaw, neck and ear area on R 11/10-a lot of stress recently d/t job changes ; feels like jt feels better, but face feels tight 11/30-feels like a lot of stress recently and it is getting slightly better despite that LTG Duration 02/08 ROM Short Term Goal (STG) pt will have at least 35 mm of opening of jaw w/o inc jaw tension 03/24/24: jaw 34cm arrival, not pain but feel clunk on R. 05/18-mild tightness 34 mm 07/14/24: 33 mm, no pain but mild tightness 07/21-28mm w/tightness 09/08-34 mm improved-less tightness feeling 10/19-no clicking/clunking, 33 mm and feels okay at end range 11/10-32mm and mild deviation only 11/30-35mm -cracking more on R STG Duration 12/28 Live Out Nanny Goal (LTG) Pt will have full cervical ROM w/o inc pain or feeling off 05/18 improved significnat 09/08-improved comfort w/flex and ext and improved equal SB but does feel res 10/19-achieved LTG Duration achieved 10/19 ear [facility] Goal (LTG) Pt will report dec ear tension and symptoms w/o inc discomfort when driving and changing elevations. 05/18 improved overall but still limited 07/21-worse recently 09/08-improved a little; L ear feels like it would be okay if R stopped; R ear improved about 20% 10/19-30% improvement; L feels overall good. 11/10-60% improvement; hasn't had elevation changes 11/30-Feels less pressure when bending over is less now and cont to feel more improvement w/ears LTG Duration 02/08 Assessment Summary Assessment Pt is making gradual progress but recently much more where pt is feeling more clearance of ears and less tension when bending over. She cont to have tension and is encouraged to cont her opening exercises. cont PT to dec symtoms and imrpove jaw and neck tension. Physical Therapy Plan Frequency and Duration Frequency of Treatment 1-2x/wk Duration of treatment (weeks) 10 Plan of Care Start Date 11/30/24 Plan of Care End Date 02/08/25 Therapeutic Interventions Therapeutic Interventions Canalithic Repositioning,Home Exercise Program,Joint Mobilizations,Manual Therapy, Neuromuscular Re-education, Patient/Caregiver Education, Self-Care/Home Management,Soft Tissue Mobilization,Taping, Therapeutic Activities, Therapeutic Exercises, Vestibular Rehabilitation Modalities Cold Pack/Ice Massage,Electric Stimulation,Hot Packs, Infrared Therapy,Traction- Mechanical,Ultrasound Next Visit Focus/Plan Next Note Type Treatment Note Next Visit Plan End Consider Buteyko breathing , progressive muscle relaxation, diaphragm breathing, cont to work on cranial mobility, jaw mm and upper cerivcal mobility to dec ear symptoms; next: review chest opening and posture
--- NOTE | 2024-11-30 10:39 | PT.OPPOC ---
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) Fibromyalgia (11/30/24) Visit Care Team Role Provider Type Jenny Manzo MD Family Provider Physician Specialty: Gynecology [employer] Obstetrics Address: [address] [place] [address], [id number] Email: [email or web address] Quang Webb MD Attending Provider Physician Primary Care Provider Referring Provider Specialty: Family Practice Address: [address] [place] [address], [address] Email: [email or web address] Plan Of Care PT-OP-B Current Condition Start: 01/29/24 11:36 Freq: Status: Active Protocol: Document 03/04/24 10:40 [facility] (Rec: 03/04/24 13:48 [facility] [id number]) Current Condition History of Current Condition Onset Date about 1.5 years pt thinks Current Complaints Jaw tension, neck pain, ear unable to clear History of Current Condition Pt has pressure where she can' t clear her ears. L has gotten better and R still can't clear. Eardrum looks normal, hearing normal, no fluid. ENT mentioned poking hole in eardrum . Going up/down hills/ elevation can't get R ear to clear and pressure just builds up. She does have B jaw tension. She has been told she may be a candidate for double jaw surgery. She went and saw a specialized doctor in [place]. She got a mouthguard for at night and has had it for 2 weeks and is not sure what she thinks of it. when she wears it,s he has to keep moving her jaw and has bite plates to reset her bite after . 1x/week she wears her old nightguard. She is waiting to do another sleep study. She is in a lot of stress currently and in December, she had a weird thing happen wehre seh felt like she wasn't really there. It was kind of how she felt after her covid vaccine. She started feeling worse and layed down where dizzy and nauseated. It got bad enough that she talked to her friend who was a nurse and 911 was called. Vitals were checked by EMT and told she was having a panic attack. She saw her primary the next day. Sometimes it feels like she is carrying so much overwhelm that it becomes beyond what her body can handle. She is seeing counselor. Has had head pressure when bends over also . She has had imaging of brain and nothing showed. Her head aches, but she doesn't have DANIEL often. She does have neck pain and sometimes when she wakes up, she can hardly move it. She is seeing a chiro which helps her neck but hasn' t changed the head pressure or the ear clearing. EKG has been done by EMT and looked normal. Pt reports L ankle occ feels difficulty w/down stairs and just feels tight down L leg. Pt's teeth ewere pulled out as a kid d/t not fitting in her mouth as this was prior to palette siderographer. Treatment Goals Patient/Caregiver Goals improve ear ability to clear, jaw tension PT-OP-T Assessment and Plan Start: 01/29/24 11:36 Freq: Status: Active Protocol: Document 11/30/24 09:48 [facility] (Rec: 11/30/24 10:39 [facility] [id number]) Physical Therapy Assessment Goals pain Assistant Scientist Goal (LTG) Pt will report a 75% decrease in feeling of head, neck and jaw tension in order to participate in daily life w/ less difficulty 05/18-has had a lot of stress, feels like neck has improved. unsure about jaw 07/21-unsure d/t so much stress 09/08-inc recently w/inc stress for cervical tension, jaw tension still present 10/19-tension in jaw, neck and ear area on R 11/10-a lot of stress recently d/t job changes ; feels like jt feels better, but face feels tight 11/30-feels like a lot of stress recently and it is getting slightly better despite that LTG Duration 02/08 ROM Short Term Goal (STG) pt will have at least 35 mm of opening of jaw w/o inc jaw tension 03/24/24: jaw 34cm arrival, not pain but feel clunk on R. 05/18-mild tightness 34 mm 07/14/24: 33 mm, no pain but mild tightness 07/21-28mm w/tightness 09/08-34 mm improved-less tightness feeling 10/19-no clicking/clunking, 33 mm and feels okay at end range 11/10-32mm and mild deviation only 11/30-35mm -cracking more on R STG Duration 12/28 Assistant Scientist Goal (LTG) Pt will have full cervical ROM w/o inc pain or feeling off 05/18 improved significnat 09/08-improved comfort w/flex and ext and improved equal SB but does feel res 10/19-achieved LTG Duration achieved 10/19 ear Assistant Scientist Goal (LTG) Pt will report dec ear tension and symptoms w/o inc discomfort when driving and changing elevations. 05/18 improved overall but still limited 07/21-worse recently 09/08-improved a little; L ear feels like it would be okay if R stopped; R ear improved about 20% 10/19-30% improvement; L feels overall good. 11/10-60% improvement; hasn't had elevation changes 11/30-Feels less pressure when bending over is less now and cont to feel more improvement w/ears LTG Duration 02/08 Assessment Summary Assessment Pt is making gradual progress but recently much more where pt is feeling more clearance of ears and less tension when bending over. She cont to have tension and is encouraged to cont her opening exercises. cont PT to dec symtoms and imrpove jaw and neck tension. Physical Therapy Plan Frequency and Duration Frequency of Treatment 1-2x/wk Duration of treatment (weeks) 10 Plan of Care Start Date 11/30/24 Plan of Care End Date 02/08/25 Therapeutic Interventions Therapeutic Interventions Canalithic Repositioning,Home Exercise Program,Joint Mobilizations,Manual Therapy, Neuromuscular Re-education, Patient/Caregiver Education, Self-Care/Home Management,Soft Tissue Mobilization,Taping, Therapeutic Activities, Therapeutic Exercises, Vestibular Rehabilitation Modalities Cold Pack/Ice Massage,Electric Stimulation,Hot Packs, Infrared Therapy,Traction- Mechanical,Ultrasound Next Visit Focus/Plan Next Note Type Treatment Note Next Visit Plan End Consider Buteyko breathing , progressive muscle relaxation, diaphragm breathing, cont to work on cranial mobility, jaw mm and upper cerivcal mobility to dec ear symptoms; next: review chest opening and posture Plan of Care Dates Plan of Care Start Date 11/30/24 Plan of Care End Date 02/08/25 Electronically Signed by: China Aguirre, PT 11/30/24 1738 If you are in agreement with this Plan of Care, please return a signed and dated copy. I have reviewed this Plan of Care and certify that the skilled therapy services above are required to meet the patient?s needs. Physician Signature Date Printed Name and Credentials Clinical Instructor Signature Printed Name and Credentials
--- NOTE | 2024-12-07 12:15 | PT.OTN ---
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 fascial fibromatosis (12/07/24) Fibromyalgia (12/07/24) Physical Therapy Treatment Note PT-OP-A Visit Information Start: 01/29/24 11:36 Freq: Status: Active Protocol: Document 12/07/24 11:34 MB (Rec: 12/07/24 12:15 MB [id number]) Out-Patient Physical Therapy Visit Information Visit Information Visit Type Treatment Note Visit Start Time 11:34 Visit Stop Time 12:14 Visit Number 40 Number of MANAGER PEST Visits 0 PT-OP-B Current Condition Start: 01/29/24 11:36 Freq: Status: Active Protocol: Document 03/04/24 10:40 [facility] (Rec: 03/04/24 13:48 [facility] [id number]) Current Condition History of Current Condition Onset Date about 1.5 years pt thinks Current Complaints Jaw tension, neck pain, ear unable to clear History of Current Condition Pt has pressure where she can' t clear her ears. L has gotten better and R still can't clear. Eardrum looks normal, hearing normal, no fluid. ENT mentioned poking hole in eardrum . Going up/down hills/ elevation can't get R ear to clear and pressure just builds up. She does have B jaw tension. She has been told she may be a candidate for double jaw surgery. She went and saw a specialized doctor in [place]. She got a mouthguard for at night and has had it for 2 weeks and is not sure what she thinks of it. when she wears it,s he has to keep moving her jaw and has bite plates to reset her bite after . 1x/week she wears her old nightguard. She is waiting to do another sleep study. She is in a lot of stress currently and in December, she had a weird thing happen renetta carrera felt like she wasn't really there. It was kind of how she felt after her covid vaccine. She started feeling worse and layed down where dizzy and nauseated. It got bad enough that she talked to her friend who was a nurse and 911 was called. Vitals were checked by EMT and told she was having a panic attack. She saw her primary the next day. Sometimes it feels like she is carrying so much overwhelm that it becomes beyond what her body can handle. She is seeing counselor. Has had head pressure when bends over also . She has had imaging of brain and nothing showed. Her head aches, but she doesn't have DANIEL often. She does have neck pain and sometimes when she wakes up, she can hardly move it. She is seeing a chiro which helps her neck but hasn' t changed the head pressure or the ear clearing. EKG has been done by EMT and looked normal. Pt reports L ankle occ feels difficulty w/down stairs and just feels tight down L leg. 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 Treatment Goals Patient/Caregiver Goals improve ear ability to clear, jaw tension PT-OP-C Subjective Start: 01/29/24 11:36 Freq: Status: Active Protocol: Document 12/07/24 11:34 MB (Rec: 12/07/24 12:15 MB [id number]) OP-PT Subjective Patient Comments Patient Comments Pt would like to get her ears to pop today if possible. Working on the foot chain helped. PT-OP-F Manual Assessment Start: 01/29/24 11:36 Freq: Status: Active Protocol: Document 03/04/24 10:40 [facility] (Rec: 03/04/24 13:48 [facility] [id number]) Manual Assessments Soft Tissue Assessment Soft Tissue Mobility Assessment tenderness and tightness throguhout neck and cranium Joint Mobility Assessment Joint Mobility Assessment ant shearing TMJ-occ clicking R>L; ant shearing L>R w/jaw opening; post shear R>L w/ closing PT-OP-J Posture/Palpation/Skin Start: 01/29/24 11:36 Freq: Status: Active Protocol: Document 03/04/24 10:40 [facility] (Rec: 03/04/24 13:48 [facility] [id number]) Posture Evaluation Roldan Postural Classification System Roldan Postural Classifications Posterior/Anterior Comments Posture Comments head R SB; R scap >L abd, L shoulder higher, fwd head, inc thoracic kyphosis PT-OP-K Range of Motion Start: 01/29/24 11:36 Freq: Status: Active Protocol: Document 11/10/24 10:49 [facility] (Rec: 11/10/24 13:04 [facility] [id number]) TMJ Range of Motion Jaw Openning Jaw Openning (mm) 32 Comments Comments mild deviation L PT-OP-L Special Tests Start: 01/29/24 11:36 Freq: Status: Active Protocol: Document 03/04/24 10:40 [facility] (Rec: 03/04/24 13:48 [facility] [id number]) Special Tests Cervical Spine Special Tests cranial n screen Test Results neg except some saccades noted w/smooth pursuit atlas/axis shear Test Results neg tectoral membrane Test Results neg arterial screening Test Results position screen neg Comments BP:168/68; ausciltation of carotid and heart WNL Alar Ligament Test Results neg spurling Test Results neg-just pressure Traction Test Results relief-dec pressure PT-OP-M Strength Start: 01/29/24 11:36 Freq: Status: Active Protocol: Document 05/18/24 13:51 [facility] (Rec: 05/18/24 16:44 [facility] [id number]) Ankle/Foot Strength Ankle and Foot Manual Muscle Testing Left Dorsiflexion (L4) 4+ Good+ Plantarflexion (S1) 2+ Poor+ Inversion 4+ Good+ Eversion (S1) 5 Normal Comments unable to do heel raises Toe Strength Toe Manual Muscle Testing Left Flexion 4 Good Extension 5 Normal Comments all toes PT-OP-Q Treatments Start: 01/29/24 11:36 Freq: Status: Active Protocol: Document 12/07/24 11:34 MB (Rec: 12/07/24 12:15 MB [id number]) Manual Therapy Treatment Consent Patient gave verbal consent for manual Yes treatment Other Other Manual Treatments Pt supine with head and legs supported: suboccipital release, fascial release ALL right and trigeminal nerve left to improve cranial mobility and STM B SCM and upper traps, B upper ribs gentle mobilization and C1-2 upglides and PA mobs grade I- III, gentle cranial mobs; pt prone: STM and Trp right upper traps and infraspinatus, STM B upper traps and infraspinatus PT-OP-R Modalities Start: 01/29/24 11:36 Freq: Status: Active Protocol: Document 07/14/24 09:45 SP (Rec: 07/14/24 10:36 SP [id number]) Hot Pack/Cold Pack Treatment Cold Pack Location Jaw, R>L Patient Position Hooklying Patient Tolerance Good Comments less R jaw irritation PT-OP-T Assessment and Plan Start: 01/29/24 11:36 Freq: Status: Active Protocol: Document 12/07/24 11:34 MB (Rec: 12/07/24 12:15 MB [id number]) Physical Therapy Assessment Goals pain Public Health Policy Analyst Goal (LTG) Pt will report a 75% decrease in feeling of head, neck and jaw tension in order to participate in daily life w/ less difficulty 05/18-has had a lot of stress, feels like neck has improved. unsure about jaw 07/21-unsure d/t so much stress 09/08-inc recently w/inc stress for cervical tension, jaw tension still present 10/19-tension in jaw, neck and ear area on R 11/10-a lot of stress recently d/t job changes ; feels like jt feels better, but face feels tight 11/30-feels like a lot of stress recently and it is getting slightly better despite that LTG Duration 02/08 ROM Short Term Goal (STG) pt will have at least 35 mm of opening of jaw w/o inc jaw tension 03/24/24: jaw 34cm arrival, not pain but feel clunk on R. 05/18-mild tightness 34 mm 07/14/24: 33 mm, no pain but mild tightness 07/21-28mm w/tightness 09/08-34 mm improved-less tightness feeling 10/19-no clicking/clunking, 33 mm and feels okay at end range 11/10-32mm and mild deviation only 11/30-35mm -cracking more on R STG Duration 12/28 Public Health Policy Analyst Goal (LTG) Pt will have full cervical ROM w/o inc pain or feeling off 05/18 improved significnat 09/08-improved comfort w/flex and ext and improved equal SB but does feel res 10/19-achieved LTG Duration achieved 10/19 ear Public Health Policy Analyst Goal (LTG) Pt will report dec ear tension and symptoms w/o inc discomfort when driving and changing elevations. 05/18 improved overall but still limited 07/21-worse recently 09/08-improved a little; L ear feels like it would be okay if R stopped; R ear improved about 20% 10/19-30% improvement; L feels overall good. 11/10-60% improvement; hasn't had elevation changes 11/30-Feels less pressure when bending over is less now and cont to feel more improvement w/ears LTG Duration 02/08 Assessment Summary Assessment Pt states that no manual therapy or daycare manager has been able to clear her ears. She sees Dr. Aguirre next week about tubes in her ears. Pt con't with high stress in life and decreased self-care. Monitor reponse to treatment. Physical Therapy Plan Frequency and Duration Frequency of Treatment 1-2x/wk Duration of treatment (weeks) 10 Plan of Care Start Date 11/30/24 Plan of Care End Date 02/08/25 Therapeutic Interventions Therapeutic Interventions Canalithic Repositioning,Home Exercise Program,Joint Mobilizations,Manual Therapy, Neuromuscular Re-education, Patient/Caregiver Education, Self-Care/Home Management,Soft Tissue Mobilization,Taping, Therapeutic Activities, Therapeutic Exercises, Vestibular Rehabilitation Modalities Cold Pack/Ice Massage,Electric Stimulation,Hot Packs, Infrared Therapy,Traction- Mechanical,Ultrasound Next Visit Focus/Plan Next Note Type Treatment Note Next Visit Plan Consider Buteyko breathing, progressive muscle relaxation, diaphragm breathing, cont to work on cranial mobility, jaw mm and upper cerivcal mobility to dec ear symptoms; next: review chest opening and posture
--- NOTE | 2024-12-15 10:28 | PT.OTN ---
Current Diagnoses Unspecified Eustachian tube disorder, bilateral (12/15/24) Arthropathy of bilateral temporomandibular joint (12/15/24) Plantar fascial fibromatosis (12/15/24) Fibromyalgia (12/15/24) Physical Therapy Treatment Note PT-OP-A Visit Information Start: 01/29/24 11:36 Freq: Status: Active Protocol: Document 12/15/24 09:46 MB (Rec: 12/15/24 10:28 MB [id number]) Out-Patient Physical Therapy Visit Information Visit Information Visit Type Treatment Note Visit Start Time 09:46 Visit Stop Time 10:26 Visit Number 40 Number of SECURITY AND COMPLIANCE ANALYST Visits 0 PT-OP-B Current Condition Start: 01/29/24 11:36 Freq: Status: Active Protocol: Document 03/04/24 10:40 [facility] (Rec: 03/04/24 13:48 [facility] [id number]) Current Condition History of Current Condition Onset Date about 1.5 years pt thinks Current Complaints Jaw tension, neck pain, ear unable to clear History of Current Condition Pt has pressure where she can' t clear her ears. L has gotten better and R still can't clear. Eardrum looks normal, hearing normal, no fluid. ENT mentioned poking hole in eardrum . Going up/down hills/ elevation can't get R ear to clear and pressure just builds up. She does have B jaw tension. She has been told she may be a candidate for double jaw surgery. She went and saw a specialized doctor in [place]. She got a mouthguard for at night and has had it for 2 weeks and is not sure what she thinks of it. when she wears it,s he has to keep moving her jaw and has bite plates to reset her bite after . 1x/week she wears her old nightguard. She is waiting to do another sleep study. She is in a lot of stress currently and in December, she had a weird thing happen renetta carrera felt like she wasn't really there. It was kind of how she felt after her covid vaccine. She started feeling worse and layed down where dizzy and nauseated. It got bad enough that she talked to her friend who was a nurse and 911 was called. Vitals were checked by EMT and told she was having a panic attack. She saw her primary the next day. Sometimes it feels like she is carrying so much overwhelm that it becomes beyond what her body can handle. She is seeing counselor. Has had head pressure when bends over also . She has had imaging of brain and nothing showed. Her head aches, but she doesn't have DANIEL often. She does have neck pain and sometimes when she wakes up, she can hardly move it. She is seeing a chiro which helps her neck but hasn' t changed the head pressure or the ear clearing. EKG has been done by EMT and looked normal. Pt reports L ankle occ feels difficulty w/down stairs and just feels tight down L leg. 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 Treatment Goals Patient/Caregiver Goals improve ear ability to clear, jaw tension PT-OP-C Subjective Start: 01/29/24 11:36 Freq: Status: Active Protocol: Document 12/15/24 09:46 MB (Rec: 12/15/24 10:28 MB [id number]) OP-PT Subjective Patient Comments Patient Comments Pt has had a stressful week with work. She got tube put in right ear yesterday and the ear pressure is the same or maybe worse. There was some discomfort with the tube placement. PT-OP-F Manual Assessment Start: 01/29/24 11:36 Freq: Status: Active Protocol: Document 03/04/24 10:40 [facility] (Rec: 03/04/24 13:48 [facility] [id number]) Manual Assessments Soft Tissue Assessment Soft Tissue Mobility Assessment tenderness and tightness throguhout neck and cranium Joint Mobility Assessment Joint Mobility Assessment ant shearing TMJ-occ clicking R>L; ant shearing L>R w/jaw opening; post shear R>L w/ closing PT-OP-J Posture/Palpation/Skin Start: 01/29/24 11:36 Freq: Status: Active Protocol: Document 03/04/24 10:40 [facility] (Rec: 03/04/24 13:48 [facility] [id number]) Posture Evaluation Roldan Postural Classification System Roldan Postural Classifications Posterior/Anterior Comments Posture Comments head R SB; R scap >L abd, L shoulder higher, fwd head, inc thoracic kyphosis PT-OP-K Range of Motion Start: 01/29/24 11:36 Freq: Status: Active Protocol: Document 11/10/24 10:49 LR (Rec: 11/10/24 13:04 [facility] [id number]) TMJ Range of Motion Jaw Openning Jaw Openning (mm) 32 Comments Comments mild deviation L PT-OP-L Special Tests Start: 01/29/24 11:36 Freq: Status: Active Protocol: Document 03/04/24 10:40 [facility] (Rec: 03/04/24 13:48 [facility] [id number]) Special Tests Cervical Spine Special Tests cranial n screen Test Results neg except some saccades noted w/smooth pursuit atlas/axis shear Test Results neg tectoral membrane Test Results neg arterial screening Test Results position screen neg Comments BP:168/68; ausciltation of carotid and heart WNL Alar Ligament Test Results neg spurling Test Results neg-just pressure Traction Test Results relief-dec pressure PT-OP-M Strength Start: 01/29/24 11:36 Freq: Status: Active Protocol: Document 05/18/24 13:51 LR (Rec: 05/18/24 16:44 [facility] [id number]) Ankle/Foot Strength Ankle and Foot Manual Muscle Testing Left Dorsiflexion (L4) 4+ Good+ Plantarflexion (S1) 2+ Poor+ Inversion 4+ Good+ Eversion (S1) 5 Normal Comments unable to do heel raises Toe Strength Toe Manual Muscle Testing Left Flexion 4 Good Extension 5 Normal Comments all toes PT-OP-Q Treatments Start: 01/29/24 11:36 Freq: Status: Active Protocol: Document 12/15/24 09:46 MB (Rec: 12/15/24 10:28 MB [id number]) Manual Therapy Treatment Consent Patient gave verbal consent for manual Yes treatment Other Other Manual Treatments Pt supine with head and legs supported: cervical PA mobs grade II-III and upglides, suboccipital release, most time with STM B SCM and posterior scalene and increased tension today. Trp B qudratus plantaris to help release tight posterior chain, B side lying rib recoil to help loosen thorax and ribs PT-OP-R Modalities Start: 01/29/24 11:36 Freq: Status: Active Protocol: Document 07/14/24 09:45 SP (Rec: 07/14/24 10:36 SP [id number]) Hot Pack/Cold Pack Treatment Cold Pack Location Jaw, R>L Patient Position Hooklying Patient Tolerance Good Comments less R jaw irritation PT-OP-T Assessment and Plan Start: 01/29/24 11:36 Freq: Status: Active Protocol: Document 12/15/24 09:46 MB (Rec: 12/15/24 10:28 MB [id number]) Physical Therapy Assessment Goals pain Marble Cleaner Goal (LTG) Pt will report a 75% decrease in feeling of head, neck and jaw tension in order to participate in daily life w/ less difficulty 05/18-has had a lot of stress, feels like neck has improved. unsure about jaw 07/21-unsure d/t so much stress 09/08-inc recently w/inc stress for cervical tension, jaw tension still present 10/19-tension in jaw, neck and ear area on R 11/10-a lot of stress recently d/t job changes ; feels like jt feels better, but face feels tight 11/30-feels like a lot of stress recently and it is getting slightly better despite that LTG Duration 02/08 ROM Short Term Goal (STG) pt will have at least 35 mm of opening of jaw w/o inc jaw tension 03/24/24: jaw 34cm arrival, not pain but feel clunk on R. 05/18-mild tightness 34 mm 07/14/24: 33 mm, no pain but mild tightness 07/21-28mm w/tightness 09/08-34 mm improved-less tightness feeling 10/19-no clicking/clunking, 33 mm and feels okay at end range 11/10-32mm and mild deviation only 11/30-35mm -cracking more on R STG Duration 12/28 [facility] Goal (LTG) Pt will have full cervical ROM w/o inc pain or feeling off 05/18 improved significnat 09/08-improved comfort w/flex and ext and improved equal SB but does feel res 10/19-achieved LTG Duration achieved 10/19 ear [facility] Goal (LTG) Pt will report dec ear tension and symptoms w/o inc discomfort when driving and changing elevations. 05/18 improved overall but still limited 07/21-worse recently 09/08-improved a little; L ear feels like it would be okay if R stopped; R ear improved about 20% 10/19-30% improvement; L feels overall good. 11/10-60% improvement; hasn't had elevation changes 11/30-Feels less pressure when bending over is less now and cont to feel more improvement w/ears LTG Duration 02/08 Assessment Summary Assessment Discussed plan with patient and she will think about Buteyko breathing next treatment with this PT and otherwise, will consider next to visits with therapy here and then consider manual PT in town for another assessment and treatment. Pt con't with similar complaints of ears needing to pop, tight jaw, head and legs. Defer to primary PT about ongoing PT/ POC pending pt progress. Physical Therapy Plan Frequency and Duration Frequency of Treatment 1-2x/wk Duration of treatment (weeks) 10 Plan of Care Start Date 11/30/24 Plan of Care End Date 02/08/25 Therapeutic Interventions Therapeutic Interventions Canalithic Repositioning,Home Exercise Program,Joint Mobilizations,Manual Therapy, Neuromuscular Re-education, Patient/Caregiver Education, Self-Care/Home Management,Soft Tissue Mobilization,Taping, Therapeutic Activities, Therapeutic Exercises, Vestibular Rehabilitation Modalities Cold Pack/Ice Massage,Electric Stimulation,Hot Packs, Infrared Therapy,Traction- Mechanical,Ultrasound Next Visit Focus/Plan Next Note Type Treatment Note Next Visit Plan Consider Buteyko breathing, progressive muscle relaxation, diaphragm breathing, cont to work on cranial mobility, jaw mm and upper cerivcal mobility to dec ear symptoms; next: review chest opening and posture
--- NOTE | 2024-12-15 11:13 | PT-OP ANOTE ---
Discussed continuing care through current POC w/pt and other treating PT and pt agreeable. Discussion w/pt about needing progress in order to continue PT. Both PTs and pt agreeable. If no significant progress, plan is to DC pt at end of POC
--- NOTE | 2024-12-21 07:17 | PT-OP ANOTE ---
This PT reviewed primary PT's note from last week. Pt has received OPPT for over 9 months and 40 treatments. This PT has seen patient three times and is scheduled today with pt. Pt has con't to report wanting PT to help her B ears to pop. We have not been successful with this request. PT notes that pt has also been receiving OMT and she also got an ear tube placement last week. Will discuss OPPT progress and goals and role again with pt today. If she con't to report no progress, will consider discharging PT sooner than end of POC date if primary PT agrees. This PT treated B SCM to address ears last date and after treatment, pt states she wished PT had treated her pterygoids. Con't to monitor.
--- NOTE | 2024-12-21 10:45 | PT.OTN ---
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 (12/21/24) Fibromyalgia (12/21/24) Physical Therapy Treatment Note PT-OP-A Visit Information Start: 01/29/24 11:36 Freq: Status: Active Protocol: Document 12/21/24 09:50 MB (Rec: 12/21/24 10:44 MB [id number]) Out-Patient Physical Therapy Visit Information Visit Information Visit Type Treatment Note Visit Start Time 09:50 Visit Stop Time 10:30 Visit Number 40 Number of SURGICAL AIDE Visits 0 PT-OP-B Current Condition Start: 01/29/24 11:36 Freq: Status: Active Protocol: Document 03/04/24 10:40 [facility] (Rec: 03/04/24 13:48 [facility] [id number]) Current Condition History of Current Condition Onset Date about 1.5 years pt thinks Current Complaints Jaw tension, neck pain, ear unable to clear History of Current Condition Pt has pressure where she can' t clear her ears. L has gotten better and R still can't clear. Eardrum looks normal, hearing normal, no fluid. ENT mentioned poking hole in eardrum . Going up/down hills/ elevation can't get R ear to clear and pressure just builds up. She does have B jaw tension. She has been told she may be a candidate for double jaw surgery. She went and saw a specialized doctor in [place]. She got a mouthguard for at night and has had it for 2 weeks and is not sure what she thinks of it. when she wears it,s he has to keep moving her jaw and has bite plates to reset her bite after . 1x/week she wears her old nightguard. She is waiting to do another sleep study. She is in a lot of stress currently and in December, she had a weird thing happen renetta carrera felt like she wasn't really there. It was kind of how she felt after her covid vaccine. She started feeling worse and layed down where dizzy and nauseated. It got bad enough that she talked to her friend who was a nurse and 911 was called. Vitals were checked by EMT and told she was having a panic attack. She saw her primary the next day. Sometimes it feels like she is carrying so much overwhelm that it becomes beyond what her body can handle. She is seeing counselor. Has had head pressure when bends over also . She has had imaging of brain and nothing showed. Her head aches, but she doesn't have DANIEL often. She does have neck pain and sometimes when she wakes up, she can hardly move it. She is seeing a chiro which helps her neck but hasn' t changed the head pressure or the ear clearing. EKG has been done by EMT and looked normal. Pt reports L ankle occ feels difficulty w/down stairs and just feels tight down L leg. 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 Treatment Goals Patient/Caregiver Goals improve ear ability to clear, jaw tension PT-OP-C Subjective Start: 01/29/24 11:36 Freq: Status: Active Protocol: Document 12/21/24 09:50 MB (Rec: 12/21/24 10:44 MB [id number]) OP-PT Subjective Patient Comments Patient Comments Pt is seeing Dr. Aguirre today to follow-up about right ear tube. She states it has helped some, but has not cleared up aural fullness/pressure and need to pop. She may get left ear tube and has vacation next week. PT-OP-F Manual Assessment Start: 01/29/24 11:36 Freq: Status: Active Protocol: Document 03/04/24 10:40 [facility] (Rec: 03/04/24 13:48 [facility] [id number]) Manual Assessments Soft Tissue Assessment Soft Tissue Mobility Assessment tenderness and tightness throguhout neck and cranium Joint Mobility Assessment Joint Mobility Assessment ant shearing TMJ-occ clicking R>L; ant shearing L>R w/jaw opening; post shear R>L w/ closing PT-OP-J Posture/Palpation/Skin Start: 01/29/24 11:36 Freq: Status: Active Protocol: Document 03/04/24 10:40 [facility] (Rec: 03/04/24 13:48 [facility] [id number]) Posture Evaluation Roldan Postural Classification System Roldan Postural Classifications Posterior/Anterior Comments Posture Comments head R SB; R scap >L abd, L shoulder higher, fwd head, inc thoracic kyphosis PT-OP-K Range of Motion Start: 01/29/24 11:36 Freq: Status: Active Protocol: Document 11/10/24 10:49 [facility] (Rec: 11/10/24 13:04 [facility] [id number]) TMJ Range of Motion Jaw Openning Jaw Openning (mm) 32 Comments Comments mild deviation L PT-OP-L Special Tests Start: 01/29/24 11:36 Freq: Status: Active Protocol: Document 03/04/24 10:40 [facility] (Rec: 03/04/24 13:48 [facility] [id number]) Special Tests Cervical Spine Special Tests cranial n screen Test Results neg except some saccades noted w/smooth pursuit atlas/axis shear Test Results neg tectoral membrane Test Results neg arterial screening Test Results position screen neg Comments BP:168/68; ausciltation of carotid and heart WNL Alar Ligament Test Results neg spurling Test Results neg-just pressure Traction Test Results relief-dec pressure PT-OP-M Strength Start: 01/29/24 11:36 Freq: Status: Active Protocol: Document 05/18/24 13:51 [facility] (Rec: 05/18/24 16:44 [facility] [id number]) Ankle/Foot Strength Ankle and Foot Manual Muscle Testing Left Dorsiflexion (L4) 4+ Good+ Plantarflexion (S1) 2+ Poor+ Inversion 4+ Good+ Eversion (S1) 5 Normal Comments unable to do heel raises Toe Strength Toe Manual Muscle Testing Left Flexion 4 Good Extension 5 Normal Comments all toes PT-OP-Q Treatments Start: 01/29/24 11:36 Freq: Status: Active Protocol: Document 12/21/24 09:50 MB (Rec: 12/21/24 10:44 MB [id number]) Manual Therapy Treatment Consent Patient gave verbal consent for manual Yes treatment Other Other Manual Treatments Pt supine with head and legs supported: STM and positional release B upper traps and SCM, Trp B pterygoids, upper cervical PA mobs and glides grade I-III Self-Care/Home Management Treatment Education Other Education Extensive conversation about PT plan, role, goals, benefits of adjunct therapies to help with stress and chronic pain, breathing techniques, talking with provider about metabolic syndrome and any other OMT suggestions for aural pressure , goal of this PT to try Buteyko breathing in future, ongoing encouragement to con't to work on main contributors to multiple body pain and complaints such as stress, rest, etc. Pt con't with high reports of stress with life PT-OP-R Modalities Start: 01/29/24 11:36 Freq: Status: Active Protocol: Document 07/14/24 09:45 SP (Rec: 07/14/24 10:36 SP [id number]) Hot Pack/Cold Pack Treatment Cold Pack Location Jaw, R>L Patient Position Hooklying Patient Tolerance Good Comments less R jaw irritation PT-OP-T Assessment and Plan Start: 01/29/24 11:36 Freq: Status: Active Protocol: Document 12/21/24 09:50 MB (Rec: 12/21/24 10:44 MB [id number]) Physical Therapy Assessment Goals pain Half-Way Goal (LTG) Pt will report a 75% decrease in feeling of head, neck and jaw tension in order to participate in daily life w/ less difficulty 05/18-has had a lot of stress, feels like neck has improved. unsure about jaw 07/21-unsure d/t so much stress 09/08-inc recently w/inc stress for cervical tension, jaw tension still present 10/19-tension in jaw, neck and ear area on R 11/10-a lot of stress recently d/t job changes ; feels like jt feels better, but face feels tight 11/30-feels like a lot of stress recently and it is getting slightly better despite that LTG Duration 02/08 ROM Short Term Goal (STG) pt will have at least 35 mm of opening of jaw w/o inc jaw tension 03/24/24: jaw 34cm arrival, not pain but feel clunk on R. 05/18-mild tightness 34 mm 07/14/24: 33 mm, no pain but mild tightness 07/21-28mm w/tightness 09/08-34 mm improved-less tightness feeling 10/19-no clicking/clunking, 33 mm and feels okay at end range 11/10-32mm and mild deviation only 11/30-35mm -cracking more on R STG Duration 12/28 Station Mechanic Apprentice Goal (LTG) Pt will have full cervical ROM w/o inc pain or feeling off 05/18 improved significnat 09/08-improved comfort w/flex and ext and improved equal SB but does feel res 10/19-achieved LTG Duration achieved 10/19 ear Half-Way Goal (LTG) Pt will report dec ear tension and symptoms w/o inc discomfort when driving and changing elevations. 05/18 improved overall but still limited 07/21-worse recently 09/08-improved a little; L ear feels like it would be okay if R stopped; R ear improved about 20% 10/19-30% improvement; L feels overall good. 11/10-60% improvement; hasn't had elevation changes 11/30-Feels less pressure when bending over is less now and cont to feel more improvement w/ears LTG Duration 02/08 Assessment Summary Assessment Much discussion on OPPT role and how much PT can assist in larger picture of ongoing stressors in life, decreased time for self-care, situation, etc, and that PT cannot address all these. May benefit from other therapies such as counseling, Dr. Watt is assisting with OMT, possible nutrition consult. Overall, PT cannot address all chronic pain needs for pt. One more treatment with this therapist will try Nicki. Physical Therapy Plan Frequency and Duration Frequency of Treatment 1-2x/wk Duration of treatment (weeks) 10 Plan of Care Start Date 11/30/24 Plan of Care End Date 02/08/25 Therapeutic Interventions Therapeutic Interventions Canalithic Repositioning,Home Exercise Program,Joint Mobilizations,Manual Therapy, Neuromuscular Re-education, Patient/Caregiver Education, Self-Care/Home Management,Soft Tissue Mobilization,Taping, Therapeutic Activities, Therapeutic Exercises, Vestibular Rehabilitation Modalities Cold Pack/Ice Massage,Electric Stimulation,Hot Packs, Infrared Therapy,Traction- Mechanical,Ultrasound Next Visit Focus/Plan Next Note Type Treatment Note Next Visit Plan Per primary PT plan: Try Nicki with PT in future treatment, Diaphragm breathing , cont to work on cranial mobility, jaw mm and upper cerivcal mobility to dec ear symptoms; next: review chest opening and posture
--- NOTE | 2024-12-27 17:21 | PT.OTN ---
Current Diagnoses Unspecified Eustachian tube disorder, bilateral (12/27/24) Arthropathy of bilateral temporomandibular joint (12/27/24) Plantar fascial fibromatosis (12/27/24) Fibromyalgia (12/27/24) Physical Therapy Treatment Note PT-OP-A Visit Information Start: 01/29/24 11:36 Freq: Status: Active Protocol: Document 12/27/24 09:47 [facility] (Rec: 12/27/24 17:21 [facility] [id number]) Out-Patient Physical Therapy Visit Information Visit Information Visit Type Progress Note Visit Start Time 09:50 Visit Stop Time 10:30 Visit Number 41 Number of COLLECTION SYSTEMS TECHNICIAN Visits 0 PT-OP-B Current Condition Start: 01/29/24 11:36 Freq: Status: Active Protocol: Document 03/04/24 10:40 [facility] (Rec: 03/04/24 13:48 [facility] [id number]) Current Condition History of Current Condition Onset Date about 1.5 years pt thinks Current Complaints Jaw tension, neck pain, ear unable to clear History of Current Condition Pt has pressure where she can' t clear her ears. L has gotten better and R still can't clear. Eardrum looks normal, hearing normal, no fluid. ENT mentioned poking hole in eardrum . Going up/down hills/ elevation can't get R ear to clear and pressure just builds up. She does have B jaw tension. She has been told she may be a candidate for double jaw surgery. She went and saw a specialized doctor in [place]. She got a mouthguard for at night and has had it for 2 weeks and is not sure what she thinks of it. when she wears it,s he has to keep moving her jaw and has bite plates to reset her bite after . 1x/week she wears her old nightguard. She is waiting to do another sleep study. She is in a lot of stress currently and in December, she had a weird thing happen renetta carrera felt like she wasn't really there. It was kind of how she felt after her covid vaccine. She started feeling worse and layed down where dizzy and nauseated. It got bad enough that she talked to her friend who was a nurse and 911 was called. Vitals were checked by EMT and told she was having a panic attack. She saw her primary the next day. Sometimes it feels like she is carrying so much overwhelm that it becomes beyond what her body can handle. She is seeing counselor. Has had head pressure when bends over also . She has had imaging of brain and nothing showed. Her head aches, but she doesn't have DANIEL often. She does have neck pain and sometimes when she wakes up, she can hardly move it. She is seeing a chiro which helps her neck but hasn' t changed the head pressure or the ear clearing. EKG has been done by EMT and looked normal. Pt reports L ankle occ feels difficulty w/down stairs and just feels tight down L leg. 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 Treatment Goals Patient/Caregiver Goals improve ear ability to clear, jaw tension PT-OP-C Subjective Start: 01/29/24 11:36 Freq: Status: Active Protocol: Document 12/27/24 09:47 [facility] (Rec: 12/27/24 17:21 [facility] [id number]) OP-PT Subjective Patient Comments Patient Comments Pt reports thinks she is gradually better since the tube. She has ear drops to put in and started those and after a few days stopped d/t side affects (feeling ill and inc pain). Went [place] in a small plane and ear was okay to [place]. Leaves 01/05 on trip. She is working on loosing wt. Her foot is getting better and hoping to start walking again. PT-OP-F Manual Assessment Start: 01/29/24 11:36 Freq: Status: Active Protocol: Document 03/04/24 10:40 [facility] (Rec: 03/04/24 13:48 [facility] [id number]) Manual Assessments Soft Tissue Assessment Soft Tissue Mobility Assessment tenderness and tightness throguhout neck and cranium Joint Mobility Assessment Joint Mobility Assessment ant shearing TMJ-occ clicking R>L; ant shearing L>R w/jaw opening; post shear R>L w/ closing PT-OP-J Posture/Palpation/Skin Start: 01/29/24 11:36 Freq: Status: Active Protocol: Document 03/04/24 10:40 [facility] (Rec: 03/04/24 13:48 [facility] [id number]) Posture Evaluation Roldan Postural Classification System Roldan Postural Classifications Posterior/Anterior Comments Posture Comments head R SB; R scap >L abd, L shoulder higher, fwd head, inc thoracic kyphosis PT-OP-K Range of Motion Start: 01/29/24 11:36 Freq: Status: Active Protocol: Document 12/27/24 09:47 [facility] (Rec: 12/27/24 17:21 [facility] [id number]) TMJ Range of Motion Jaw Openning Jaw Openning (mm) 35 PT-OP-L Special Tests Start: 01/29/24 11:36 Freq: Status: Active Protocol: Document 03/04/24 10:40 [facility] (Rec: 03/04/24 13:48 [facility] [id number]) Special Tests Cervical Spine Special Tests cranial n screen Test Results neg except some saccades noted w/smooth pursuit atlas/axis shear Test Results neg tectoral membrane Test Results neg arterial screening Test Results position screen neg Comments BP:168/68; ausciltation of carotid and heart WNL Alar Ligament Test Results neg spurling Test Results neg-just pressure Traction Test Results relief-dec pressure PT-OP-M Strength Start: 01/29/24 11:36 Freq: Status: Active Protocol: Document 05/18/24 13:51 [facility] (Rec: 05/18/24 16:44 [facility] [id number]) Ankle/Foot Strength Ankle and Foot Manual Muscle Testing Left Dorsiflexion (L4) 4+ Good+ Plantarflexion (S1) 2+ Poor+ Inversion 4+ Good+ Eversion (S1) 5 Normal Comments unable to do heel raises Toe Strength Toe Manual Muscle Testing Left Flexion 4 Good Extension 5 Normal Comments all toes PT-OP-Q Treatments Start: 01/29/24 11:36 Freq: Status: Active Protocol: Document 12/27/24 09:47 [facility] (Rec: 12/27/24 17:21 [facility] [id number]) Manual Therapy Treatment Soft Tissue Mobilization neck Body Location R SCM, scalenes Mobilization Type Rolling,Sustained Pressure Body Position Supine Comments w/rot jaw Body Location R>L masseter, digastric Mobilization Type Myofascial Release,Rolling Comments w/opening head Body Location R>L cranium fascia, Mobilization Type Myofascial Release Intensity/Depth Superficial Comments w/jaw opening, Joint Mobilizations cervical Comments transverse L C2-3 c/r w/SB Self-Care/Home Management Treatment Education Other Education 10min: discussed w/pt dc at end of month to HEP and encouraged pt to cont self massage. reviewed self jaw massage along w/self cervical STM; encouraged tocnt working w/chiro and OMT. discussed w/ pt working on anti inflamatory diet and encouraged to work with ND or dietian that specializes in this to help w/ chronic pain PT-OP-R Modalities Start: 01/29/24 11:36 Freq: Status: Active Protocol: Document 07/14/24 09:45 SP (Rec: 07/14/24 10:36 SP [id number]) Hot Pack/Cold Pack Treatment Cold Pack Location Jaw, R>L Patient Position Hooklying Patient Tolerance Good Comments less R jaw irritation PT-OP-T Assessment and Plan Start: 01/29/24 11:36 Freq: Status: Active Protocol: Document 12/27/24 09:47 [facility] (Rec: 12/27/24 17:21 [facility] [id number]) Physical Therapy Assessment Goals pain Technician Support Association Goal (LTG) Pt will report a 75% decrease in feeling of head, neck and jaw tension in order to participate in daily life w/ less difficulty 05/18-has had a lot of stress, feels like neck has improved. unsure about jaw 07/21-unsure d/t so much stress 09/08-inc recently w/inc stress for cervical tension, jaw tension still present 10/19-tension in jaw, neck and ear area on R 11/10-a lot of stress recently d/t job changes ; feels like jt feels better, but face feels tight 11/30-feels like a lot of stress recently and it is getting slightly better despite that 12/27-reports cont R sided neck and jaw tension LTG Duration 02/08 ROM Short Term Goal (STG) pt will have at least 35 mm of opening of jaw w/o inc jaw tension 03/24/24: jaw 34cm arrival, not pain but feel clunk on R. 05/18-mild tightness 34 mm 07/14/24: 33 mm, no pain but mild tightness 07/21-28mm w/tightness 09/08-34 mm improved-less tightness feeling 10/19-no clicking/clunking, 33 mm and feels okay at end range 11/10-32mm and mild deviation only 11/30-35mm -cracking more on R STG Duration achieved w/some tension at end of range Technician Support Association Goal (LTG) Pt will have full cervical ROM w/o inc pain or feeling off 05/18 improved significnat 09/08-improved comfort w/flex and ext and improved equal SB but does feel res 10/19-achieved LTG Duration achieved 10/19 ear Senior Living Goal (LTG) Pt will report dec ear tension and symptoms w/o inc discomfort when driving and changing elevations. 05/18 improved overall but still limited 07/21-worse recently 09/08-improved a little; L ear feels like it would be okay if R stopped; R ear improved about 20% 10/19-% improvement; L feels overall good. 11/10-60% improvement; hasn't had elevation changes 11/30-Feels less pressure when bending over is less now and cont to feel more improvement w/ears 12/27- went up in small plane w /o issue but not full height as commercial plane LTG Duration 02/08 Assessment Summary Assessment Pt encouraged on cont HEP after this month w/plan to DC at end of month. ENcouraged pt to cont to follow up w/other providers for care. Pt had improved R cervical SB after mnaul. Has made improvements w /PT Overall but starting to plateau so will plan to dc at end of month Physical Therapy Plan Frequency and Duration Frequency of Treatment 1-2x/wk Duration of treatment (weeks) 10 Plan of Care Start Date 11/30/24 Plan of Care End Date 02/08/25 Therapeutic Interventions Therapeutic Interventions Canalithic Repositioning,Home Exercise Program,Joint Mobilizations,Manual Therapy, Neuromuscular Re-education, Patient/Caregiver Education, Self-Care/Home Management,Soft Tissue Mobilization,Taping, Therapeutic Activities, Therapeutic Exercises, Vestibular Rehabilitation Modalities Cold Pack/Ice Massage,Electric Stimulation,Hot Packs, Infrared Therapy,Traction- Mechanical,Ultrasound Next Visit Focus/Plan Next Note Type Treatment Note Next Visit Plan Per primary PT plan: Try Buteyko with PT in future treatment, Diaphragm breathing , cont to work on cranial mobility, jaw mm and upper cerivcal mobility to dec ear symptoms; next: review chest opening and posture exercises for HEP. plan for DC at end of month
--- NOTE | 2025-01-04 11:33 | PT.OTN ---
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) Fibromyalgia (01/04/25) Physical Therapy Treatment Note PT-OP-A Visit Information Start: 01/29/24 11:36 Freq: Status: Active Protocol: Document 01/04/25 10:52 SP (Rec: 01/04/25 11:36 SP [id number]) Out-Patient Physical Therapy Visit Information Visit Information Visit Type Treatment Note Visit Start Time 10:52 Visit Stop Time 11:33 Visit Number 42 Number of RADIAL DRILL PRESS SET UP OPERATOR Visits 1 PT-OP-B Current Condition Start: 01/29/24 11:36 Freq: Status: Active Protocol: Document 03/04/24 10:40 [facility] (Rec: 03/04/24 13:48 [facility] [id number]) Current Condition History of Current Condition Onset Date about 1.5 years pt thinks Current Complaints Jaw tension, neck pain, ear unable to clear History of Current Condition Pt has pressure where she can' t clear her ears. L has gotten better and R still can't clear. Eardrum looks normal, hearing normal, no fluid. ENT mentioned poking hole in eardrum . Going up/down hills/ elevation can't get R ear to clear and pressure just builds up. She does have B jaw tension. She has been told she may be a candidate for double jaw surgery. She went and saw a specialized doctor in [place]. She got a mouthguard for at night and has had it for 2 weeks and is not sure what she thinks of it. when she wears it,s he has to keep moving her jaw and has bite plates to reset her bite after . 1x/week she wears her old nightguard. She is waiting to do another sleep study. She is in a lot of stress currently and in December, she had a weird thing happen renetta carrera felt like she wasn't really there. It was kind of how she felt after her covid vaccine. She started feeling worse and layed down where dizzy and nauseated. It got bad enough that she talked to her friend who was a nurse and 911 was called. Vitals were checked by EMT and told she was having a panic attack. She saw her primary the next day. Sometimes it feels like she is carrying so much overwhelm that it becomes beyond what her body can handle. She is seeing counselor. Has had head pressure when bends over also . She has had imaging of brain and nothing showed. Her head aches, but she doesn't have DANIEL often. She does have neck pain and sometimes when she wakes up, she can hardly move it. She is seeing a chiro which helps her neck but hasn' t changed the head pressure or the ear clearing. EKG has been done by EMT and looked normal. Pt reports L ankle occ feels difficulty w/down stairs and just feels tight down L leg. 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 Treatment Goals Patient/Caregiver Goals improve ear ability to clear, jaw tension PT-OP-C Subjective Start: 01/29/24 11:36 Freq: Status: Active Protocol: Document 01/04/25 10:52 SP (Rec: 01/04/25 11:36 SP [id number]) OP-PT Subjective Patient Comments Patient Comments She reported took a small plane ride to [place] and didn 't have pain. SHe stated got drops from ENT and not sure helping on fullness and ear pain. She stated hasn't worked on self manual and incorporating some HEP. Wants to focus on neck and very light TMJ pretty sensitive today. PT-OP-F Manual Assessment Start: 01/29/24 11:36 Freq: Status: Active Protocol: Document 03/04/24 10:40 [facility] (Rec: 03/04/24 13:48 [facility] [id number]) Manual Assessments Soft Tissue Assessment Soft Tissue Mobility Assessment tenderness and tightness throguhout neck and cranium Joint Mobility Assessment Joint Mobility Assessment ant shearing TMJ-occ clicking R>L; ant shearing L>R w/jaw opening; post shear R>L w/ closing PT-OP-J Posture/Palpation/Skin Start: 01/29/24 11:36 Freq: Status: Active Protocol: Document 03/04/24 10:40 [facility] (Rec: 03/04/24 13:48 [facility] [id number]) Posture Evaluation Roldan Postural Classification System Roldan Postural Classifications Posterior/Anterior Comments Posture Comments head R SB; R scap >L abd, L shoulder higher, fwd head, inc thoracic kyphosis PT-OP-K Range of Motion Start: 01/29/24 11:36 Freq: Status: Active Protocol: Document 12/27/24 09:47 [facility] (Rec: 12/27/24 17:21 [facility] [id number]) TMJ Range of Motion Jaw Openning Jaw Openning (mm) 35 PT-OP-L Special Tests Start: 01/29/24 11:36 Freq: Status: Active Protocol: Document 03/04/24 10:40 [facility] (Rec: 03/04/24 13:48 [facility] [id number]) Special Tests Cervical Spine Special Tests cranial n screen Test Results neg except some saccades noted w/smooth pursuit atlas/axis shear Test Results neg tectoral membrane Test Results neg arterial screening Test Results position screen neg Comments BP:168/68; ausciltation of carotid and heart WNL Alar Ligament Test Results neg spurling Test Results neg-just pressure Traction Test Results relief-dec pressure PT-OP-M Strength Start: 01/29/24 11:36 Freq: Status: Active Protocol: Document 05/18/24 13:51 [facility] (Rec: 05/18/24 16:44 [facility] [id number]) Ankle/Foot Strength Ankle and Foot Manual Muscle Testing Left Dorsiflexion (L4) 4+ Good+ Plantarflexion (S1) 2+ Poor+ Inversion 4+ Good+ Eversion (S1) 5 Normal Comments unable to do heel raises Toe Strength Toe Manual Muscle Testing Left Flexion 4 Good Extension 5 Normal Comments all toes PT-OP-Q Treatments Start: 01/29/24 11:36 Freq: Status: Active Protocol: Document 01/04/25 10:52 SP (Rec: 01/04/25 11:36 SP [id number]) Therapeutic Exercises Supine Exercises diaphramatic breath Reps/Minutes throughout tx during manual and STMs Comments in nose/ out mouth Sitting Exercises Cervical retraction Side bilateral Resistance TB #1 behind head Reps/Minutes 2x5 reps Comments cued upright posture rotation Sitting Exercise Name CS rotation Resistance TB #1 behind head Comments cued jaw relaxed. self STMs Sitting Exercise Name theracane UT Resistance R>L at occiput Comments MWM head nods turns- ed continue self device has home carry over relief Manual Therapy Treatment Consent Patient gave verbal consent for manual Yes treatment Soft Tissue Mobilization neck Body Location R SCM, scalenes, UT, SOR Mobilization Type Rolling,Sustained Pressure, Other Intensity/Depth Moderate Body Position Supine Comments gentle rolling over musculature, WMW holds UT at occiput w/rot, flex/ext nods, ed self performance use S cane and SOR device can lay over for occiput posterior glide finds comforting can do home. Provided screen shot of SOR device. jaw Body Location R>L masseter, medial pterygoid Mobilization Type Myofascial Release,Rolling, Sustained Pressure,Other Intensity/Depth Superficial Comments -gentle very light almost superficial glide intraoral pressure very sensitive R>L today, limited tolerance. -gentle pressure external w/ opening head Body Location R>L cranium fascia, Mobilization Type Myofascial Release Intensity/Depth Superficial Comments light pressurew/jaw opening Self-Care/Home Management Treatment Education Patient Education Body Mechanics,Home Exercise Program,Joint Protection,Pain Management,Posture,Safety Other Education Floatation Salt Water Pods for decompression/relaxation can be helpful as alternative, theracane posterior neck hepful in PT carryover home, SOR device help decreased posterior neck tension provided releases in PT by RADIAL DRILL PRESS SET UP OPERATOR , good carryover home application. PT-OP-R Modalities Start: 01/29/24 11:36 Freq: Status: Active Protocol: Document 07/14/24 09:45 SP (Rec: 07/14/24 10:36 SP [id number]) Hot Pack/Cold Pack Treatment Cold Pack Location Jaw, R>L Patient Position Hooklying Patient Tolerance Good Comments less R jaw irritation PT-OP-T Assessment and Plan Start: 01/29/24 11:36 Freq: Status: Active Protocol: Document 01/04/25 10:52 SP (Rec: 01/04/25 11:36 SP [id number]) Physical Therapy Assessment Goals pain Food Packer Goal (LTG) Pt will report a 75% decrease in feeling of head, neck and jaw tension in order to participate in daily life w/ less difficulty 05/18-has had a lot of stress, feels like neck has improved. unsure about jaw 07/21-unsure d/t so much stress 09/08-inc recently w/inc stress for cervical tension, jaw tension still present 10/19-tension in jaw, neck and ear area on R 11/10-a lot of stress recently d/t job changes ; feels like jt feels better, but face feels tight 11/30-feels like a lot of stress recently and it is getting slightly better despite that 12/27-reports cont R sided neck and jaw tension LTG Duration 02/08 ROM Short Term Goal (STG) pt will have at least 35 mm of opening of jaw w/o inc jaw tension 03/24/24: jaw 34cm arrival, not pain but feel clunk on R. 05/18-mild tightness 34 mm 07/14/24: 33 mm, no pain but mild tightness 07/21-28mm w/tightness 09/08-34 mm improved-less tightness feeling 10/19-no clicking/clunking, 33 mm and feels okay at end range 11/10-32mm and mild deviation only 11/30-35mm -cracking more on R STG Duration achieved w/some tension at end of range Food Packer Goal (LTG) Pt will have full cervical ROM w/o inc pain or feeling off 05/18 improved significnat 09/08-improved comfort w/flex and ext and improved equal SB but does feel res 10/19-achieved LTG Duration achieved 10/19 ear Food Packer Goal (LTG) Pt will report dec ear tension and symptoms w/o inc discomfort when driving and changing elevations. 05/18 improved overall but still limited 07/21-worse recently 09/08-improved a little; L ear feels like it would be okay if R stopped; R ear improved about 20% 10/19-30% improvement; L feels overall good. 11/10-60% improvement; hasn't had elevation changes 11/30-Feels less pressure when bending over is less now and cont to feel more improvement w/ears 12/27- went up in small plane w /o issue but not full height as commercial plane LTG Duration 02/08 Assessment Summary Assessment Pt very sensitive limted time spent R>L TMJ musculature today, adjusted pressure almost slight superficial glide with better tolerance and use breath for relaxation. Good response to head and neck manual and ed self application use ther cane and SOR device. Discussed compliance with self HEP, Initiated CS retraction and rotation against resistance band with good feedback stretches upper Trap and suboccipital area to allow decreased tightness in neck and potentially jaw. Time spent discusssion postural alignment at computer and daily activities to be mindful to support decreased neck, head, jaw pain/tension. Discussed alternative therapies as salt water floatation pods for relaxation and decrease stress if thinks beneficial. Physical Therapy Plan Frequency and Duration Frequency of Treatment 1-2x/wk Duration of treatment (weeks) 10 Plan of Care Start Date 11/30/24 Plan of Care End Date 02/08/25 Therapeutic Interventions Therapeutic Interventions Canalithic Repositioning,Home Exercise Program,Joint Mobilizations,Manual Therapy, Neuromuscular Re-education, Patient/Caregiver Education, Self-Care/Home Management,Soft Tissue Mobilization,Taping, Therapeutic Activities, Therapeutic Exercises, Vestibular Rehabilitation Modalities Cold Pack/Ice Massage,Electric Stimulation,Hot Packs, Infrared Therapy,Traction- Mechanical,Ultrasound Next Visit Focus/Plan Next Note Type Treatment Note Next Visit Plan RFecheck resisted cervical retraction with relaxed jaw and breath added last tx helped stretch and mobility neck. Per primary PT plan: Try Buteyko with PT in future treatment, Diaphragm breathing , cont to work on cranial mobility, jaw mm and upper cerivcal mobility to dec ear symptoms; next: review chest opening and posture exercises for HEP. plan for DC at end of month
--- NOTE | 2025-01-12 12:16 | PT.OTN ---
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/25) Plantar fascial fibromatosis (01/12/25) Fibromyalgia (01/12/25) Physical Therapy Treatment Note PT-OP-A Visit Information Start: 01/29/24 11:36 Freq: Status: Active Protocol: Document 01/12/25 11:35 MB (Rec: 01/12/25 12:15 MB [id number]) Out-Patient Physical Therapy Visit Information Visit Information Visit Type Treatment Note Visit Note Pt is 5' late to appointment Visit Start Time 11:35 Visit Stop Time 12:15 Visit Number 40 Number of CIVIL PROCESS SERVER Visits 0 PT-OP-B Current Condition Start: 01/29/24 11:36 Freq: Status: Active Protocol: Document 03/04/24 10:40 [facility] (Rec: 03/04/24 13:48 [facility] [id number]) Current Condition History of Current Condition Onset Date about 1.5 years pt thinks Current Complaints Jaw tension, neck pain, ear unable to clear History of Current Condition Pt has pressure where she can' t clear her ears. L has gotten better and R still can't clear. Eardrum looks normal, hearing normal, no fluid. ENT mentioned poking hole in eardrum . Going up/down hills/ elevation can't get R ear to clear and pressure just builds up. She does have B jaw tension. She has been told she may be a candidate for double jaw surgery. She went and saw a specialized doctor in [place]. She got a mouthguard for at night and has had it for 2 weeks and is not sure what she thinks of it. when she wears it,s he has to keep moving her jaw and has bite plates to reset her bite after . 1x/week she wears her old nightguard. She is waiting to do another sleep study. She is in a lot of stress currently and in December, she had a weird thing happen renetta carrera felt like she wasn't really there. It was kind of how she felt after her covid vaccine. She started feeling worse and layed down where dizzy and nauseated. It got bad enough that she talked to her friend who was a nurse and 911 was called. Vitals were checked by EMT and told she was having a panic attack. She saw her primary the next day. Sometimes it feels like she is carrying so much overwhelm that it becomes beyond what her body can handle. She is seeing counselor. Has had head pressure when bends over also . She has had imaging of brain and nothing showed. Her head aches, but she doesn't have DANIEL often. She does have neck pain and sometimes when she wakes up, she can hardly move it. She is seeing a chiro which helps her neck but hasn' t changed the head pressure or the ear clearing. EKG has been done by EMT and looked normal. Pt reports L ankle occ feels difficulty w/down stairs and just feels tight down L leg. 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 Treatment Goals Patient/Caregiver Goals improve ear ability to clear, jaw tension PT-OP-C Subjective Start: 01/29/24 11:36 Freq: Status: Active Protocol: Document 01/12/25 11:35 MB (Rec: 01/12/25 12:15 MB [id number]) OP-PT Subjective Patient Comments Patient Comments Pt got back from trip from [place]. Flying was okay but the landing was hard on the way back and more troublesome for left ear that does not have ear tube. Follow-up with Dr. Aguirre is in a couple of months. She still wishes the ears would pop. The ears did not pop in the air. PT-OP-F Manual Assessment Start: 01/29/24 11:36 Freq: Status: Active Protocol: Document 03/04/24 10:40 [facility] (Rec: 03/04/24 13:48 [facility] [id number]) Manual Assessments Soft Tissue Assessment Soft Tissue Mobility Assessment tenderness and tightness throguhout neck and cranium Joint Mobility Assessment Joint Mobility Assessment ant shearing TMJ-occ clicking R>L; ant shearing L>R w/jaw opening; post shear R>L w/ closing PT-OP-J Posture/Palpation/Skin Start: 01/29/24 11:36 Freq: Status: Active Protocol: Document 03/04/24 10:40 [facility] (Rec: 03/04/24 13:48 [facility] [id number]) Posture Evaluation Roldan Postural Classification System Roldan Postural Classifications Posterior/Anterior Comments Posture Comments head R SB; R scap >L abd, L shoulder higher, fwd head, inc thoracic kyphosis PT-OP-K Range of Motion Start: 01/29/24 11:36 Freq: Status: Active Protocol: Document 12/27/24 09:47 LR (Rec: 12/27/24 17:21 [facility] [id number]) TMJ Range of Motion Jaw Openning Jaw Openning (mm) 35 PT-OP-L Special Tests Start: 01/29/24 11:36 Freq: Status: Active Protocol: Document 03/04/24 10:40 [facility] (Rec: 03/04/24 13:48 [facility] [id number]) Special Tests Cervical Spine Special Tests cranial n screen Test Results neg except some saccades noted w/smooth pursuit atlas/axis shear Test Results neg tectoral membrane Test Results neg arterial screening Test Results position screen neg Comments BP:168/68; ausciltation of carotid and heart WNL Alar Ligament Test Results neg spurling Test Results neg-just pressure Traction Test Results relief-dec pressure PT-OP-M Strength Start: 01/29/24 11:36 Freq: Status: Active Protocol: Document 05/18/24 13:51 LR (Rec: 05/18/24 16:44 [facility] [id number]) Ankle/Foot Strength Ankle and Foot Manual Muscle Testing Left Dorsiflexion (L4) 4+ Good+ Plantarflexion (S1) 2+ Poor+ Inversion 4+ Good+ Eversion (S1) 5 Normal Comments unable to do heel raises Toe Strength Toe Manual Muscle Testing Left Flexion 4 Good Extension 5 Normal Comments all toes PT-OP-Q Treatments Start: 01/29/24 11:36 Freq: Status: Active Protocol: Document 01/12/25 11:35 MB (Rec: 01/12/25 12:15 MB [id number]) Therapeutic Exercises Supine Exercises Buteyko breathing Comments Education and initiation today in supine, see assessment for details Neuro Re-Education Treatment Balance Activities Diaphragm breathing and controlled pause Comments See explanation in assessment: parasympathetic engagement with diaphragm movement and trapping nitric oxide and CO2, book on tummy with diaphragm movement PT-OP-R Modalities Start: 01/29/24 11:36 Freq: Status: Active Protocol: Document 07/14/24 09:45 SP (Rec: 07/14/24 10:36 SP [id number]) Hot Pack/Cold Pack Treatment Cold Pack Location Jaw, R>L Patient Position Hooklying Patient Tolerance Good Comments less R jaw irritation PT-OP-T Assessment and Plan Start: 01/29/24 11:36 Freq: Status: Active Protocol: Document 01/12/25 11:35 MB (Rec: 01/12/25 12:15 MB [id number]) Physical Therapy Assessment Goals pain Nursing Home Goal (LTG) Pt will report a 75% decrease in feeling of head, neck and jaw tension in order to participate in daily life w/ less difficulty 05/18-has had a lot of stress, feels like neck has improved. unsure about jaw 07/21-unsure d/t so much stress 09/08-inc recently w/inc stress for cervical tension, jaw tension still present 10/19-tension in jaw, neck and ear area on R 11/10-a lot of stress recently d/t job changes ; feels like jt feels better, but face feels tight 11/30-feels like a lot of stress recently and it is getting slightly better despite that 12/27-reports cont R sided neck and jaw tension LTG Duration 02/08 ROM Short Term Goal (STG) pt will have at least 35 mm of opening of jaw w/o inc jaw tension 03/24/24: jaw 34cm arrival, not pain but feel clunk on R. 05/18-mild tightness 34 mm 07/14/24: 33 mm, no pain but mild tightness 07/21-28mm w/tightness 09/08-34 mm improved-less tightness feeling 10/19-no clicking/clunking, 33 mm and feels okay at end range 11/10-32mm and mild deviation only 11/30-35mm -cracking more on R STG Duration achieved w/some tension at end of range Nursing Home Goal (LTG) Pt will have full cervical ROM w/o inc pain or feeling off 05/18 improved significnat 09/08-improved comfort w/flex and ext and improved equal SB but does feel res 10/19-achieved LTG Duration achieved 10/19 ear Reimbursement Analyst Goal (LTG) Pt will report dec ear tension and symptoms w/o inc discomfort when driving and changing elevations. 05/18 improved overall but still limited 07/21-worse recently 09/08-improved a little; L ear feels like it would be okay if R stopped; R ear improved about 20% 10/19-30% improvement; L feels overall good. 11/10-60% improvement; hasn't had elevation changes 11/30-Feels less pressure when bending over is less now and cont to feel more improvement w/ears 12/27- went up in small plane w /o issue but not full height as commercial plane LTG Duration 02/08 Assessment Summary Assessment Buteyko breathing training with nasal breathing and trapping nitric and CO2 gases to improve parasympathetic response with diaphragm breathing entering in. O2 and HR at rest, left index, pt supine with head and legs supported: 92% and 74 BPM. Book on stomach and cues to inflate belly with inhalation and decrease with exhalation. With natural breathing in and out of nose, O2 sats already increase to 97% after 5'. Rep 1: 15 sec controlled pause, 99 % and 72 BPM; rep 2: 18 sec and 98%, 72 BPM; rep 3: 24 sec and 99% 71-72 BPM; rep 4: 19 sec, 99% and 72 BPM; rep 5: 22 sec, 99% and 76 BPM; rep 6: 12 sec and 99% and 71 BPM. Physical Therapy Plan Frequency and Duration Frequency of Treatment 1-2x/wk Duration of treatment (weeks) 10 Plan of Care Start Date 11/30/24 Plan of Care End Date 02/08/25 Therapeutic Interventions Therapeutic Interventions Canalithic Repositioning,Home Exercise Program,Joint Mobilizations,Manual Therapy, Neuromuscular Re-education, Patient/Caregiver Education, Self-Care/Home Management,Soft Tissue Mobilization,Taping, Therapeutic Activities, Therapeutic Exercises, Vestibular Rehabilitation Modalities Cold Pack/Ice Massage,Electric Stimulation,Hot Packs, Infrared Therapy,Traction- Mechanical,Ultrasound Next Visit Focus/Plan Next Note Type Treatment Note Next Visit Plan One more treatment and then d/ c/ Review any exercises previously given. Consider ed in chin tuck when seated: several every hour, hold 3-5 sec.
--- NOTE | 2025-01-12 12:17 | PT.OTN ---
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/25) Plantar fascial fibromatosis (01/12/25) Fibromyalgia (01/12/25) Physical Therapy Treatment Note PT-OP-A Visit Information Start: 01/29/24 11:36 Freq: Status: Active Protocol: Document 01/12/25 11:35 MB (Rec: 01/12/25 12:15 MB [id number]) Out-Patient Physical Therapy Visit Information Visit Information Visit Type Treatment Note Visit Note Pt is 5' late to appointment Visit Start Time 11:35 Visit Stop Time 12:15 Visit Number 40 Number of STONEMASON HELPER Visits 0 PT-OP-B Current Condition Start: 01/29/24 11:36 Freq: Status: Active Protocol: Document 03/04/24 10:40 [facility] (Rec: 03/04/24 13:48 [facility] [id number]) Current Condition History of Current Condition Onset Date about 1.5 years pt thinks Current Complaints Jaw tension, neck pain, ear unable to clear History of Current Condition Pt has pressure where she can' t clear her ears. L has gotten better and R still can't clear. Eardrum looks normal, hearing normal, no fluid. ENT mentioned poking hole in eardrum . Going up/down hills/ elevation can't get R ear to clear and pressure just builds up. She does have B jaw tension. She has been told she may be a candidate for double jaw surgery. She went and saw a specialized doctor in [place]. She got a mouthguard for at night and has had it for 2 weeks and is not sure what she thinks of it. when she wears it,s he has to keep moving her jaw and has bite plates to reset her bite after . 1x/week she wears her old nightguard. She is waiting to do another sleep study. She is in a lot of stress currently and in December, she had a weird thing happen renetta carrera felt like she wasn't really there. It was kind of how she felt after her covid vaccine. She started feeling worse and layed down where dizzy and nauseated. It got bad enough that she talked to her friend who was a nurse and 911 was called. Vitals were checked by EMT and told she was having a panic attack. She saw her primary the next day. Sometimes it feels like she is carrying so much overwhelm that it becomes beyond what her body can handle. She is seeing counselor. Has had head pressure when bends over also . She has had imaging of brain and nothing showed. Her head aches, but she doesn't have DANIEL often. She does have neck pain and sometimes when she wakes up, she can hardly move it. She is seeing a chiro which helps her neck but hasn' t changed the head pressure or the ear clearing. EKG has been done by EMT and looked normal. Pt reports L ankle occ feels difficulty w/down stairs and just feels tight down L leg. 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 Treatment Goals Patient/Caregiver Goals improve ear ability to clear, jaw tension PT-OP-C Subjective Start: 01/29/24 11:36 Freq: Status: Active Protocol: Document 01/12/25 11:35 MB (Rec: 01/12/25 12:15 MB [id number]) OP-PT Subjective Patient Comments Patient Comments Pt got back from trip from [place]. Flying was okay but the landing was hard on the way back and more troublesome for left ear that does not have ear tube. Follow-up with Dr. Aguirre is in a couple of months. She still wishes the ears would pop. The ears did not pop in the air. PT-OP-F Manual Assessment Start: 01/29/24 11:36 Freq: Status: Active Protocol: Document 03/04/24 10:40 [facility] (Rec: 03/04/24 13:48 [facility] [id number]) Manual Assessments Soft Tissue Assessment Soft Tissue Mobility Assessment tenderness and tightness throguhout neck and cranium Joint Mobility Assessment Joint Mobility Assessment ant shearing TMJ-occ clicking R>L; ant shearing L>R w/jaw opening; post shear R>L w/ closing PT-OP-J Posture/Palpation/Skin Start: 01/29/24 11:36 Freq: Status: Active Protocol: Document 03/04/24 10:40 [facility] (Rec: 03/04/24 13:48 [facility] [id number]) Posture Evaluation Roldan Postural Classification System Roldan Postural Classifications Posterior/Anterior Comments Posture Comments head R SB; R scap >L abd, L shoulder higher, fwd head, inc thoracic kyphosis PT-OP-K Range of Motion Start: 01/29/24 11:36 Freq: Status: Active Protocol: Document 12/27/24 09:47 LR (Rec: 12/27/24 17:21 [facility] [id number]) TMJ Range of Motion Jaw Openning Jaw Openning (mm) 35 PT-OP-L Special Tests Start: 01/29/24 11:36 Freq: Status: Active Protocol: Document 03/04/24 10:40 [facility] (Rec: 03/04/24 13:48 [facility] [id number]) Special Tests Cervical Spine Special Tests cranial n screen Test Results neg except some saccades noted w/smooth pursuit atlas/axis shear Test Results neg tectoral membrane Test Results neg arterial screening Test Results position screen neg Comments BP:168/68; ausciltation of carotid and heart WNL Alar Ligament Test Results neg spurling Test Results neg-just pressure Traction Test Results relief-dec pressure PT-OP-M Strength Start: 01/29/24 11:36 Freq: Status: Active Protocol: Document 05/18/24 13:51 LR (Rec: 05/18/24 16:44 [facility] [id number]) Ankle/Foot Strength Ankle and Foot Manual Muscle Testing Left Dorsiflexion (L4) 4+ Good+ Plantarflexion (S1) 2+ Poor+ Inversion 4+ Good+ Eversion (S1) 5 Normal Comments unable to do heel raises Toe Strength Toe Manual Muscle Testing Left Flexion 4 Good Extension 5 Normal Comments all toes PT-OP-Q Treatments Start: 01/29/24 11:36 Freq: Status: Active Protocol: Document 01/12/25 11:35 MB (Rec: 01/12/25 12:15 MB [id number]) Therapeutic Exercises Supine Exercises Buteyko breathing Comments Education and initiation today in supine, see assessment for details Neuro Re-Education Treatment Balance Activities Diaphragm breathing and controlled pause Comments See explanation in assessment: parasympathetic engagement with diaphragm movement and trapping nitric oxide and CO2, book on tummy with diaphragm movement PT-OP-R Modalities Start: 01/29/24 11:36 Freq: Status: Active Protocol: Document 07/14/24 09:45 SP (Rec: 07/14/24 10:36 SP [id number]) Hot Pack/Cold Pack Treatment Cold Pack Location Jaw, R>L Patient Position Hooklying Patient Tolerance Good Comments less R jaw irritation PT-OP-T Assessment and Plan Start: 01/29/24 11:36 Freq: Status: Active Protocol: Document 01/12/25 11:35 MB (Rec: 01/12/25 12:15 MB [id number]) Physical Therapy Assessment Goals pain Assisted Goal (LTG) Pt will report a 75% decrease in feeling of head, neck and jaw tension in order to participate in daily life w/ less difficulty 05/18-has had a lot of stress, feels like neck has improved. unsure about jaw 07/21-unsure d/t so much stress 09/08-inc recently w/inc stress for cervical tension, jaw tension still present 10/19-tension in jaw, neck and ear area on R 11/10-a lot of stress recently d/t job changes ; feels like jt feels better, but face feels tight 11/30-feels like a lot of stress recently and it is getting slightly better despite that 12/27-reports cont R sided neck and jaw tension LTG Duration 02/08 ROM Short Term Goal (STG) pt will have at least 35 mm of opening of jaw w/o inc jaw tension 03/24/24: jaw 34cm arrival, not pain but feel clunk on R. 05/18-mild tightness 34 mm 07/14/24: 33 mm, no pain but mild tightness 07/21-28mm w/tightness 09/08-34 mm improved-less tightness feeling 10/19-no clicking/clunking, 33 mm and feels okay at end range 11/10-32mm and mild deviation only 11/30-35mm -cracking more on R STG Duration achieved w/some tension at end of range Assisted Goal (LTG) Pt will have full cervical ROM w/o inc pain or feeling off 05/18 improved significnat 09/08-improved comfort w/flex and ext and improved equal SB but does feel res 10/19-achieved LTG Duration achieved 10/19 ear Senior Software Analyst Goal (LTG) Pt will report dec ear tension and symptoms w/o inc discomfort when driving and changing elevations. 05/18 improved overall but still limited 07/21-worse recently 09/08-improved a little; L ear feels like it would be okay if R stopped; R ear improved about 20% 10/19-30% improvement; L feels overall good. 11/10-60% improvement; hasn't had elevation changes 11/30-Feels less pressure when bending over is less now and cont to feel more improvement w/ears 12/27- went up in small plane w /o issue but not full height as commercial plane LTG Duration 02/08 Assessment Summary Assessment Buteyko breathing training with nasal breathing and trapping nitric and CO2 gases to improve parasympathetic response with diaphragm breathing entering in. O2 and HR at rest, left index, pt supine with head and legs supported: 92% and 74 BPM. Book on stomach and cues to inflate belly with inhalation and decrease with exhalation. With natural breathing in and out of nose, O2 sats already increase to 97% after 5'. Rep 1: 15 sec controlled pause, 99 % and 72 BPM; rep 2: 18 sec and 98%, 72 BPM; rep 3: 24 sec and 99% 71-72 BPM; rep 4: 19 sec, 99% and 72 BPM; rep 5: 22 sec, 99% and 76 BPM; rep 6: 12 sec and 99% and 71 BPM. Physical Therapy Plan Frequency and Duration Frequency of Treatment 1-2x/wk Duration of treatment (weeks) 10 Plan of Care Start Date 11/30/24 Plan of Care End Date 02/08/25 Therapeutic Interventions Therapeutic Interventions Canalithic Repositioning,Home Exercise Program,Joint Mobilizations,Manual Therapy, Neuromuscular Re-education, Patient/Caregiver Education, Self-Care/Home Management,Soft Tissue Mobilization,Taping, Therapeutic Activities, Therapeutic Exercises, Vestibular Rehabilitation Modalities Cold Pack/Ice Massage,Electric Stimulation,Hot Packs, Infrared Therapy,Traction- Mechanical,Ultrasound Next Visit Focus/Plan Next Note Type Treatment Note Next Visit Plan One more treatment and then d/ c/ Review any exercises previously given. Consider ed in chin tuck when seated: several every hour, hold 3-5 sec.
--- NOTE | 2025-01-14 13:46 | PT.OTN ---
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) Fibromyalgia (01/14/25) Physical Therapy Treatment Note PT-OP-A Visit Information Start: 01/29/24 11:36 Freq: Status: Active Protocol: Document 01/14/25 13:02 SP (Rec: 01/14/25 13:50 SP [id number]) Out-Patient Physical Therapy Visit Information Visit Information Visit Type Treatment Note Visit Note Pt is 4' late to appointment Visit Start Time 13:02 Visit Stop Time 13:46 Visit Number 41 Number of BANKING SPECIALIST Visits 1 PT-OP-B Current Condition Start: 01/29/24 11:36 Freq: Status: Active Protocol: Document 03/04/24 10:40 [facility] (Rec: 03/04/24 13:48 [facility] [id number]) Current Condition History of Current Condition Onset Date about 1.5 years pt thinks Current Complaints Jaw tension, neck pain, ear unable to clear History of Current Condition Pt has pressure where she can' t clear her ears. L has gotten better and R still can't clear. Eardrum looks normal, hearing normal, no fluid. ENT mentioned poking hole in eardrum . Going up/down hills/ elevation can't get R ear to clear and pressure just builds up. She does have B jaw tension. She has been told she may be a candidate for double jaw surgery. She went and saw a specialized doctor in [place]. She got a mouthguard for at night and has had it for 2 weeks and is not sure what she thinks of it. when she wears it,s he has to keep moving her jaw and has bite plates to reset her bite after . 1x/week she wears her old nightguard. She is waiting to do another sleep study. She is in a lot of stress currently and in December, she had a weird thing happen renetta carrera felt like she wasn't really there. It was kind of how she felt after her covid vaccine. She started feeling worse and layed down where dizzy and nauseated. It got bad enough that she talked to her friend who was a nurse and 911 was called. Vitals were checked by EMT and told she was having a panic attack. She saw her primary the next day. Sometimes it feels like she is carrying so much overwhelm that it becomes beyond what her body can handle. She is seeing counselor. Has had head pressure when bends over also . She has had imaging of brain and nothing showed. Her head aches, but she doesn't have DANIEL often. She does have neck pain and sometimes when she wakes up, she can hardly move it. She is seeing a chiro which helps her neck but hasn' t changed the head pressure or the ear clearing. EKG has been done by EMT and looked normal. Pt reports L ankle occ feels difficulty w/down stairs and just feels tight down L leg. 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 Treatment Goals Patient/Caregiver Goals improve ear ability to clear, jaw tension PT-OP-C Subjective Start: 01/29/24 11:36 Freq: Status: Active Protocol: Document 01/14/25 13:02 SP (Rec: 01/14/25 13:50 SP [id number]) OP-PT Subjective Patient Comments Patient Comments Pt reports ears full feeling and pain on flight descend [place]. She reports having back neck pain and head today would like to focus there. Doing wall and banded ex, open/close mouth. She frustrated ears not feeling better, understanding that PT has assisted through many interventions. She states believes her life's stress can be a contributer as well. PT-OP-F Manual Assessment Start: 01/29/24 11:36 Freq: Status: Active Protocol: Document 03/04/24 10:40 [facility] (Rec: 03/04/24 13:48 [facility] [id number]) Manual Assessments Soft Tissue Assessment Soft Tissue Mobility Assessment tenderness and tightness throguhout neck and cranium Joint Mobility Assessment Joint Mobility Assessment ant shearing TMJ-occ clicking R>L; ant shearing L>R w/jaw opening; post shear R>L w/ closing PT-OP-J Posture/Palpation/Skin Start: 01/29/24 11:36 Freq: Status: Active Protocol: Document 03/04/24 10:40 [facility] (Rec: 03/04/24 13:48 [facility] [id number]) Posture Evaluation Roldan Postural Classification System Roldan Postural Classifications Posterior/Anterior Comments Posture Comments head R SB; R scap >L abd, L shoulder higher, fwd head, inc thoracic kyphosis PT-OP-K Range of Motion Start: 01/29/24 11:36 Freq: Status: Active Protocol: Document 12/27/24 09:47 [facility] (Rec: 12/27/24 17:21 [facility] [id number]) TMJ Range of Motion Jaw Openning Jaw Openning (mm) 35 PT-OP-L Special Tests Start: 01/29/24 11:36 Freq: Status: Active Protocol: Document 03/04/24 10:40 [facility] (Rec: 03/04/24 13:48 [facility] [id number]) Special Tests Cervical Spine Special Tests cranial n screen Test Results neg except some saccades noted w/smooth pursuit atlas/axis shear Test Results neg tectoral membrane Test Results neg arterial screening Test Results position screen neg Comments BP:168/68; ausciltation of carotid and heart WNL Alar Ligament Test Results neg spurling Test Results neg-just pressure Traction Test Results relief-dec pressure PT-OP-M Strength Start: 01/29/24 11:36 Freq: Status: Active Protocol: Document 05/18/24 13:51 [facility] (Rec: 05/18/24 16:44 [facility] [id number]) Ankle/Foot Strength Ankle and Foot Manual Muscle Testing Left Dorsiflexion (L4) 4+ Good+ Plantarflexion (S1) 2+ Poor+ Inversion 4+ Good+ Eversion (S1) 5 Normal Comments unable to do heel raises Toe Strength Toe Manual Muscle Testing Left Flexion 4 Good Extension 5 Normal Comments all toes PT-OP-Q Treatments Start: 01/29/24 11:36 Freq: Status: Active Protocol: Document 01/14/25 13:02 SP (Rec: 01/14/25 13:50 SP [id number]) Therapeutic Exercises Sitting Exercises Cervical retraction Side bilateral Resistance AROM vs TB #1 at back of head Reps/Minutes 5 x5 reps AROM and TB (ed 3x / day vs every hour per PT Recommendation) Comments Good postural alignment and chin tuck pull back give posterior stretch /cTB shld ext Sitting Exercise Name reveiewed- standing Side bilateral Resistance TB #3 benton green Reps/Minutes x10 rep Comments CS head nod retracted neutral Shld ER Sitting Exercise Name reviewed- standing Side bilateral Resistance TB #2 aqua Reps/Minutes 5 SH x5 Comments scapular retraction and humeral ER, cued elongated tall posture/head nod jaw Sitting Exercise Name 1. ROM: 38 cm supine, 40 cm seated Reps/Minutes 2. jaw ex open/close pressure vs none Comments reports creepy not natural crackling but not pain, Manual Therapy Treatment Consent Patient gave verbal consent for manual Yes treatment Soft Tissue Mobilization neck Body Location R>L scalenes, CS paraspinals, UT, SOR Mobilization Type Rolling,Sustained Pressure, Other Intensity/Depth Moderate Body Position Supine Comments gentle rolling over musculature, WMW holds UT at occiput w/rot, flex/ext nods, ed self performance use S cane and SOR device can lay over for occiput posterior glide finds comforting can do home. Provided screen shot of SOR device. jaw Body Location R>L masseter, diagastric Mobilization Type Myofascial Release,Sustained Pressure,Other Intensity/Depth Superficial Comments -gentle pressure external w/ opening head Body Location R>L cranium fascia, Mobilization Type Myofascial Release Intensity/Depth Superficial Comments light pressurew/jaw opening PT-OP-R Modalities Start: 01/29/24 11:36 Freq: Status: Active Protocol: Document 07/14/24 09:45 SP (Rec: 07/14/24 10:36 SP [id number]) Hot Pack/Cold Pack Treatment Cold Pack Location Jaw, R>L Patient Position Hooklying Patient Tolerance Good Comments less R jaw irritation PT-OP-T Assessment and Plan Start: 01/29/24 11:36 Freq: Status: Active Protocol: Document 01/14/25 13:02 SP (Rec: 01/14/25 13:50 SP [id number]) Physical Therapy Assessment Goals pain Grants Specialist Goal (LTG) Pt will report a 75% decrease in feeling of head, neck and jaw tension in order to participate in daily life w/ less difficulty 05/18-has had a lot of stress, feels like neck has improved. unsure about jaw 07/21-unsure d/t so much stress 09/08-inc recently w/inc stress for cervical tension, jaw tension still present 10/19-tension in jaw, neck and ear area on R 11/10-a lot of stress recently d/t job changes ; feels like jt feels better, but face feels tight 11/30-feels like a lot of stress recently and it is getting slightly better despite that 12/27-reports cont R sided neck and jaw tension 01/14/25: 50 % better overall better since starting PT. She is compliant with PT HEP, manual with what remembers. LTG Duration 02/08 progression but not achieved01/14/25 ROM Short Term Goal (STG) pt will have at least 35 mm of opening of jaw w/o inc jaw tension 03/24/24: jaw 34cm arrival, not pain but feel clunk on R. 05/18-mild tightness 34 mm 07/14/24: 33 mm, no pain but mild tightness 07/21-28mm w/tightness 09/08-34 mm improved-less tightness feeling 10/19-no clicking/clunking, 33 mm and feels okay at end range 11/10-32mm and mild deviation only 11/30-35mm -cracking more on R 01/14/25: 38cm supine, 40cm seated feels ok, tight sore STG Duration achieved w/some tension at end of range Intermediate Goal (LTG) Pt will have full cervical ROM w/o inc pain or feeling off 05/18 improved significnat 09/08-improved comfort w/flex and ext and improved equal SB but does feel res 10/19-achieved LTG Duration achieved 10/19 ear Grants Specialist Goal (LTG) Pt will report dec ear tension and symptoms w/o inc discomfort when driving and changing elevations. 05/18 improved overall but still limited 07/21-worse recently 09/08-improved a little; L ear feels like it would be okay if R stopped; R ear improved about 20% 10/19-30% improvement; L feels overall good. 11/10-60% improvement; hasn't had elevation changes 11/30-Feels less pressure when bending over is less now and cont to feel more improvement w/ears 12/27- went up in small plane w /o issue but not full height as commercial plane 01/14/25: still frustrated, got a tube put in R side, had pain and fullness during descendign flight recently. LTG Duration 02/08 progression updated Assessment Summary Assessment Pt reports decreased tension in head and posterior neck but jaw still tight and fullness in ears continues. Reviewed HEP. Noted improvement in jaw opening and closing, very little deviation standing in front mirror with no deviation hooklying with improved maximum opening supine 38cm and 40cm seated. She still continues to have creepy clicking with opening jaw but states not painful. Overall pleased with progress has made with PT and will try to incorporate HEP and self manual per recommendation. Physical Therapy Plan Frequency and Duration Frequency of Treatment 1-2x/wk Duration of treatment (weeks) 10 Plan of Care Start Date 11/30/24 Plan of Care End Date 02/08/25 Therapeutic Interventions Therapeutic Interventions Canalithic Repositioning,Home Exercise Program,Joint Mobilizations,Manual Therapy, Neuromuscular Re-education, Patient/Caregiver Education, Self-Care/Home Management,Soft Tissue Mobilization,Taping, Therapeutic Activities, Therapeutic Exercises, Vestibular Rehabilitation Modalities Cold Pack/Ice Massage,Electric Stimulation,Hot Packs, Infrared Therapy,Traction- Mechanical,Ultrasound Discharge Physical Therapy Discharge Reasons Plateau in Progress Discharge Comments Per PT recommendation in plan last tx, DC at end of today's treatment. PT to complete DC. Next Visit Focus/Plan Next Note Type Treatment Note Next Visit Plan PT Nimisha to complete DC
--- NOTE | 2025-01-16 08:27 | PT.OPDS ---
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) Fibromyalgia (01/14/25) Visit Care Team Role Provider Type Jenny Manzo MD Family Provider Physician Specialty: Gynecology [employer]s Address: [address] [place] [address], [id number] Email: [email or web address] Quang Webb MD Attending Provider Physician Primary Care Provider Referring Provider Specialty: Family Practice Address: [address] [place] [address], [id number] Email: [email or web address] Visit Number Visit Number [id number] Discharge Summary PT-OP-B Current Condition Start: 01/29/24 11:36 Freq: Status: Active Protocol: Document 03/04/24 10:40 [facility] (Rec: 03/04/24 13:48 [facility] [id number]) Current Condition History of Current Condition Onset Date about 1.5 years pt thinks Current Complaints Jaw tension, neck pain, ear unable to clear History of Current Condition Pt has pressure where she can' t clear her ears. L has gotten better and R still can't clear. Eardrum looks normal, hearing normal, no fluid. ENT mentioned poking hole in eardrum . Going up/down hills/ elevation can't get R ear to clear and pressure just builds up. She does have B jaw tension. She has been told she may be a candidate for double jaw surgery. She went and saw a specialized doctor in [place]. She got a mouthguard for at night and has had it for 2 weeks and is not sure what she thinks of it. when she wears it,s he has to keep moving her jaw and has bite plates to reset her bite after . 1x/week she wears her old nightguard. She is waiting to do another sleep study. She is in a lot of stress currently and in December, she had a weird thing happen [facility] felt like she wasn't really there. It was kind of how she felt after her covid vaccine. She started feeling worse and layed down where dizzy and nauseated. It got bad enough that she talked to her friend who was a nurse and 911 was called. Vitals were checked by EMT and told she was having a panic attack. She saw her primary the next day. Sometimes it feels like she is carrying so much overwhelm that it becomes beyond what her body can handle. She is seeing counselor. Has had head pressure when bends over also . She has had imaging of brain and nothing showed. Her head aches, but she doesn't have DANIEL often. She does have neck pain and sometimes when she wakes up, she can hardly move it. She is seeing a chiro which helps her neck but hasn' t changed the head pressure or the ear clearing. EKG has been done by EMT and looked normal. Pt reports L ankle occ feels difficulty w/down stairs and just feels tight down L leg. 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 Treatment Goals Patient/Caregiver Goals improve ear ability to clear, jaw tension PT-OP-C Subjective Start: 01/29/24 11:36 Freq: Status: Active Protocol: Document 01/14/25 13:02 [facility] (Rec: 01/14/25 13:50 [facility] [id number]) OP-PT Subjective Patient Comments Patient Comments Pt reports ears full feeling and pain on flight descend landing return from [place]. She reports having back neck pain and head today would like to focus there. Doing wall and banded ex, open/close mouth. She frustrated ears not feeling better, understanding that PT has assisted through many interventions. She states believes her life's stress can be a contributer as well. PT-OP-F Manual Assessment Start: 01/29/24 11:36 Freq: Status: Active Protocol: Document 03/04/24 10:40 [facility] (Rec: 03/04/24 13:48 [facility] [id number]) Manual Assessments Soft Tissue Assessment Soft Tissue Mobility Assessment tenderness and tightness throguhout neck and cranium Joint Mobility Assessment Joint Mobility Assessment ant shearing TMJ-occ clicking R>L; ant shearing L>R w/jaw opening; post shear R>L w/ closing PT-OP-J Posture/Palpation/Skin Start: 04/11/24 11:36 Freq: Status: Active Protocol: Document 03/04/24 10:40 [facility] (Rec: 03/04/24 13[id number] Posture Evaluation Roldan Postural Classification System Roldan Postural Classifications Posterior/Anterior Comments Posture Comments head R SB; R scap >L abd, L shoulder higher, fwd head, inc thoracic kyphosis PT-OP-K Range of Motion Start: 01/29/24 11:36 Freq: Status: Active Protocol: Document 12/27/24 09:47 [facility] (Rec: 12/27/24 17:21 [facility] [id number]) TMJ Range of Motion Jaw Openning Jaw Openning (mm) 35 PT-OP-L Special Tests Start: 01/29/24 11:36 Freq: Status: Active Protocol: Document 03/04/24 10:40 [facility] (Rec: 03/04/24 13:48 [facility] [id number]) Special Tests Cervical Spine Special Tests cranial n screen Test Results neg except some saccades noted w/smooth pursuit atlas/axis shear Test Results neg tectoral membrane Test Results neg arterial screening Test Results position screen neg Comments BP:168/68; ausciltation of carotid and heart WNL Alar Ligament Test Results neg spurling Test Results neg-just pressure Traction Test Results relief-dec pressure PT-OP-M Strength Start: 01/29/24 11:36 Freq: Status: Active Protocol: Document 05/18/24 13:51 [facility] (Rec: 05/18/24 16:44 [facility] [id number]) Ankle/Foot Strength Ankle and Foot Manual Muscle Testing Left Dorsiflexion (L4) 4+ Good+ Plantarflexion (S1) 2+ Poor+ Inversion 4+ Good+ Eversion (S1) 5 Normal Comments unable to do heel raises Toe Strength Toe Manual Muscle Testing Left Flexion 4 Good Extension 5 Normal Comments all toes PT-OP-T Assessment and Plan Start: 01/29/24 11:36 Freq: Status: Active Protocol: Document 01/16/25 08:23 [facility] (Rec: 01/16/25 08:27 [facility] [id number]) Physical Therapy Assessment Assessment Summary Assessment Pt has received over 40 PT appointments over 9 months. She has had some small progress and con't to report pain, aural fullness and feeling that ears need to pop. She reports ongoing life stressors that prevent self- care and rest. It is unclear how much home exercise she is performing. OPPT has maximized potential to progress pt. Recommend follow-up with referring provider and possible referrals for other therapeutic interventions.
== END 2025-01-17 11:02 | disposition home or self-care (01) ==
LOC: PHYS 13:00
PROVIDERS: Family Provider Obstetrics & Gynecology; PCP Family Medicine; Referring Provider Family Medicine; Visit Provider Family Medicine
DX: M79.7 Fibromyalgia (principal); M26.653 Arthropathy of bilateral temporomandibular joint; H69.93 Unspecified Eustachian tube disorder, bilateral; M72.2 Plantar fascial fibromatosis
CPT/HCPCS: 97110; 97112; 97140; 97162; 97164; 97535

== ENCOUNTER → 2025-01-19 09:20 | Outpatient (CLI) | payer BC, SELFPAY ==
[2025-01-19 10:19] LABS: Cholesterol 261 mg/dL (140-199); HDL Cholesterol 59 mg/dL (40-60); LDL Cholesterol Calculated 155 mg/dL (<100); Triglycerides 237 mg/dL (35-150)
[2025-01-19 10:29] LABS: Vitamin D 25 Hydroxy (D3) 73.5 ng/mL (30.0-100.0)
[2025-01-19 10:49] LABS: TSH w/ Reflex to FT4 0.88 uIU/mL (0.47-4.68)
[2025-01-19 10:55] LABS: Ferritin 76 ng/mL (11-264)
[2025-01-19 11:26] LABS: Hemoglobin A1C% w Est Avg Glu 5.6 % (4.0-6.0)
[2025-01-20 03:08] LABS: Insulin Level Total 17.6 uIU/mL (2.6-24.9)
[2025-01-20 04:10] LABS: CRP, High Sensitivity 1.69 mg/L (0.00-3.00)
[2025-01-30 17:08] LABS: Estradiol, Sensitive 3.6 pg/mL (.)
[2025-01-31 10:11] LABS: Percent Free Testosterone 3.77 % (0.50-2.80); Testosterone Free 0.26 ng/dL (0.10-0.85)
== END ==
PROVIDERS: Family Provider Obstetrics & Gynecology; PCP Family Medicine; Referring Provider Family Medicine; Visit Provider Family Medicine
DX: E78.5 Hyperlipidemia, unspecified (principal); E88.810 Metabolic syndrome; E66.9 Obesity, unspecified; Z79.890 Hormone replacement therapy; E03.9 Hypothyroidism, unspecified; R73.03 Prediabetes; R53.82 Chronic fatigue, unspecified
CPT/HCPCS: 36415; 80061; 82306; 82627; 82670; 82728; 83036; 83525; 84402; 84403; 84443; 86140

== ENCOUNTER → 2025-05-31 18:54 | Outpatient (CLI) | payer BC, SELFPAY ==
--- NOTE | 2025-05-31 18:55 | DI.MRI.S_ITS ---
PROCEDURE: MRFOOT LT WO CON INDICATIONS: Left midfoot and ankle pain TECHNIQUE: Multiphasic, multisequence MRI of the forefoot was performed, without intravenous contrast administration. COMPARISON: [facility] [place], CR, XR FOOT 3+ VIEWS LEFT, 03/08/2025, 13:52. FINDINGS: Image quality: Excellent. Bones and joints: No bone marrow contusions or metatarsal stress fractures. Mild osteoarthritic changes are seen in midfoot joints more notably involving 3rd and 4th TMT joints with joint space narrowing, subchondral sclerosis and small dorsal marginal osteophyte formation. Soft tissues: The visualized plantar foot muscles demonstrate normal signal and bulk. Visualized flexor and extensor tendons appear intact, without tenosynovitis. The distal insertions of the peroneus brevis and longus tendons appear intact. Finding is concerning for sprain/low to moderate grade partial-thickness tear involving plantar component of the Lisfranc ligament. No full-thickness ligament rupture. No soft tissue ganglion cysts or bursal fluid collections. Sagittal images demonstrate no evidence for plantar plate tears. IMPRESSION: 1. Mild midfoot joint osteoarthritis. No fracture or dislocation. No suspicious bony lesions. 2. Suggestion of sprain/low to moderate grade intrasubstance partial-thickness tear involving plantar component of the Lisfranc ligament. No full-thickness ligament rupture. No widening of Lisfranc joint. 3. Extensor and flexor tendons of left foot are intact. Dictated by: Franklin Carpenter M.D. on 06/01/2025 at 8:48 Approved by: Franklin Carpenter M.D. on 06/01/2025 at 8:52
== END ==
LOC: MRI 18:54
PROVIDERS: PCP Family Medicine; Referring Provider Podiatrist; Visit Provider Podiatrist
DX: M19.072 Primary osteoarthritis, left ankle and foot (principal); M79.672 Pain in left foot
CPT/HCPCS: 73718

== ENCOUNTER → 2025-06-24 08:03 | Outpatient (CLI) | payer BC, SELFPAY ==
--- NOTE | 2025-06-24 08:03 | DI.MG.S_ITS ---
MM screening mammo BI: 06/24/2025. BI-RADS: 0 CLINICAL: 59-year old female for bilateral screening mammogram. Tyrer-Cuzick lifetime risk of 8.5%. No personal or first-degree family history of breast cancer. The patient had a mastopexy in both breasts. PRIOR EXAMS 06/22/2024, 06/17/2023, 06/13/2022, 04/24/2020. MAMMOGRAPHY TECHNIQUE: 2D and 3D (tomosynthesis) digital mammographic views obtained, with additional images as needed for full coverage. Current study was also evaluated with a Computer Aided Detection (CAD) system. DENSITY B. There are scattered areas of fibroglandular density. MAMMOGRAPHY FINDINGS Right: Lower Inner Quadrant, Anterior depth: Focal asymmetry needing additional imaging evaluation. This finding appears more prominent compared to the prior exams. Left: No suspicious mass, asymmetry, microcalcification, or other abnormality seen. IMPRESSION: Right (Asymmetry): Lower Inner Quadrant, Anterior depth * Incomplete - focal asymmetry needing additional imaging evaluation. Left * No evidence of malignancy. RECOMMENDATIONS Right: Lower Inner Quadrant, Anterior depth * Further evaluation with diagnostic mammography and diagnostic ultrasound. Ultrasound to be performed only if needed. OVERALL ASSESSMENT CATEGORY BI-RADS-0: Incomplete - Need Additional Imaging Evaluation. ELECTRONICALLY SIGNED: Cathie Londono M.D. on 06/24/2025 at 10:18:58 PM PT Interpreting Station ID: [id number]
== END ==
LOC: MAMMO 08:03
PROVIDERS: PCP Family Medicine; Referring Provider Family Medicine; Visit Provider Family Medicine
DX: Z12.31 Encounter for screening mammogram for malignant neoplasm of breast (principal)
CPT/HCPCS: 77063; 77067

== ENCOUNTER → 2025-07-04 12:10 | Outpatient (CLI) | payer BC, SELFPAY ==
--- NOTE | 2025-07-04 12:11 | DI.US.S_ITS ---
US breast RT limited, MM diagnostic mammo unilat RT: 07/04/2025 BI-RADS: 2 CLINICAL: 59-year old female for right diagnostic mammogram and right diagnostic breast ultrasound that is a recall from screening on 06/24/2025. Tyrer-Cuzick lifetime risk of 8.5%. No personal or first-degree family history of breast cancer. The patient had a mastopexy in both breasts. PRIOR EXAMS 06/24/2025, 06/22/2024, 06/17/2023, 06/13/2022. MAMMOGRAPHY TECHNIQUE: 2D and 3D (tomosynthesis) digital mammographic views obtained, with additional images as needed for full coverage. Current study was also evaluated with a Computer Aided Detection (CAD) system. ULTRASOUND TECHNIQUE Real-time joe scale and color doppler imaging of the area of clinical interest was performed with image documentation. Right targeted breast ultrasound of the area of clinical interest and the axilla was performed with image documentation. DENSITY Right: B. There are scattered areas of fibroglandular density. MAMMOGRAPHY FINDINGS Right (finding-1): Lower Inner Quadrant, Anterior depth, measuring 0.9cm: Correlating with findings on screening mammogram there is a microlobulated, oval, equal-density mass present. ULTRASOUND FINDINGS Right (finding-1): Lower at 6:00, 5 cm from nipple, measuring 0.9 x 0.3 x 0.6 cm. Previous report: Lower Inner Quadrant: Correlating with findings on mammogram, there are clustered microcysts. Right: Axilla: No abnormal lymph nodes are seen in the axilla. IMPRESSION: Right * No evidence of malignancy with benign findings. RECOMMENDATIONS Bilateral * Annual screening mammography. COMMENTS: Findings and recommendations were conveyed to the patient during today's evaluation. OVERALL ASSESSMENT CATEGORY BI-RADS-2: Benign. The [employer] recommends annual screening mammography beginning at age 40 for women with average risk of breast cancer. ELECTRONICALLY SIGNED: Cathie Londono M.D. on 07/04/2025 at 01:35:21 PM PT Interpreting Station ID: [id number]
== END ==
LOC: MAMMO 12:10
PROVIDERS: PCP Family Medicine; Referring Provider Family Medicine; Visit Provider Family Medicine
DX: R92.8 Other abnormal and inconclusive findings on diagnostic imaging of breast (principal)
CPT/HCPCS: 76642; 77065; G0279